=== PATIENT | female | born 1995 | race Caucasian/White ===

== ENCOUNTER 2021-08-20 18:06 | Emergency (ER) | payer MEDICAID, SELFPAY ==
[2021-08-20 18:08] VITALS: BP 114/66; PULSE 88; RESP 14; TEMP 36.6; O2SAT 99; BMI 38.0
--- NOTE | 2021-08-20 18:57 | US_ITS ---
HISTORY: cramping, bleeding, 10 weeks EXAMINATION: US OB Less Than 14 Weeks TECHNIQUE: Transabdominal pelvic ultrasound was performed. Grayscale and color flow Doppler evaluation of the adnexa. COMPARISON: None FINDINGS: Uterus measures 10.6 x 5.5 x 8.2 cm. Single intrauterine gestational sac contains a pole and yolk sac, with heart rate 155 BPM. [place]-rump length measurement of 3.61 cm yields an estimated gestational age of 10 weeks 2 days, CLAUDIO 03/16/22. Small heterogeneous hypoechoic fluid collection adjacent to gestational sac measures 1 x 0.6 x 1 cm, compatible small subchorionic hematoma. Amniotic fluid is subjectively within normal limits. Closed cervix. Trace free pelvic fluid noted. No adnexal mass or large adnexal cyst. Bilateral ovaries with normal color Doppler flow. Right ovary measures 3.2 x 1.9 x 2.5 cm and left ovary 3.1 x 1.3 x 2.2 cm. US/Init OB < 14Wks US IMPRESSION: Single live intrauterine with small subchorionic hematoma. EGA by crown rump length measurement is 10 weeks 2 days. at 2133 Reported and signed by: Monty Sanchez MD Electronically Signed: Monty Sanchez MD at 21:32 EDT Tel , Service support ,
--- NOTE | 2021-08-20 18:57 | EDS_ITS ---
HPI HPI - Female History of Present Illness Chief Complaint: Vag Bld, Preg Informant: patient Pain Pain: Positive for Pelvic Pain Onset: Days Context: Gradual Onset Timing: Intermittent Quality: Positive for Cramping Current Severity: Mild Maximum Severity: Mild Bleeding Issue: Positive for Vaginal bleeding; Negative for Passing clots and Passing tissue Onset: Yesterday Context: Gradual Onset Timing: Intermittent Current Severity: Spotting Maximum Severity: Spotting Associated Symptoms Associated Symptoms: Negative for Dysuria, Frequency, Urgency and Hematuria Test: Positive Sexually: Positive for Active Control: No control P: 0 Ab: 1 Narrative Narrative: 25-year-old female with G2, P0 Ab1 with that being a miscarriage. States that she is 10 weeks . Has had no APPRAISAL TECHNICIAN care as of yet but has an appointment to see an OB within the next week or so. States that she has had some mild cramping and spotting. Denies any dysuria. No fever or chills. She is concerned she may be having another miscarriage. She denies any recent illness. Prior similar symptoms: Yes Recent Illness/Hospitalization: No PFSH PFSH Medical History Anxiety Asthma Bipolar disorder Depression Home Medications vit-iron fum-folic ac [Prena-Tab] 1 tab PO DAILY 08/20/21 [History Last Taken Unknown] Allergy/AdvReac Type Severity Reaction Status Date / Time aripiprazole Allergy Hives Verified 04/11/17 17:46 Social History Smoking Status: Former smoker ROS ROS ED ROS Narrative Denies recent illness. Vaginal spotting and pelvic cramping. Review of Systems ROS Unobtainable: Denies due to encephalopathy Constitutional Constitutional ED: Denies fever(s) Eyes Eyes: Denies blurry vision or change in vision ENT ENT ED: Denies ear pain or sore throat Cardiovascular Cardiovascular: Denies chest pain Respiratory/Chest Respiratory/Chest: Denies cough or dyspnea Gastrointestinal Gastrointestinal: Denies abdominal pain, diarrhea, nausea or vomiting Genitourinary Genitourinary ED: Denies dysuria Musculoskeletal Musculoskeletal: Denies myalgias Integumentary Denies rash Neurologic Neurologic: Denies headache(s) Psychiatric Psychiatric: Denies depression Endocrine Endocrinology: Denies polyuria Hematologic/Lymphatic Hematologic/Lymphatic: Denies easy bruising Allergic/Immunologic Allergic/Immunologic ED: Denies urticaria EXAM Physical Exam Narrative Exam Narrative: 22-year-old female no acute distress. Vital signs stable afebrile. HEENT exam unremarkable. Lungs are clear equal symmetrical. Heart regular rate and rhythm no murmur. Abdomen soft nondistended normal bowel sounds no peritoneal signs. Very minimal suprapubic tenderness. Moving all four extremities. No edema. Neurologically awake and alert. Const Vital Signs: 08/20/21 18:08 Temperature 97.8 F Temperature Source Temporal Pulse Rate 88 Respiratory Rate 14 Blood Pressure 114/66 Blood Pressure Mean 82 Pulse Ox 99 Oxygen Delivery Method Room Air Positive well nourished and well developed; Negative for cachectic, contractures or unkempt General Appearance ED: well developed and NAD; Negative for unkempt, cachectic, contractures or pallor Nutritional Appearance: Negative for cachectic HEENT Reports moist mucous membranes Negative for trauma or tenderness Eyes Negative for PERRL or EOMs intact bilaterally Neck no lymphadenopathy, supple and no JVD Thyroid: Negative for tender Chest Wall inspection of chest normal and palpation of chest normal Resp normal respiratory effort and clear to auscultation bilaterally Cardio regular rate, regular rhythm, S1 normal heart sound, no murmurs and no JVD GI normal to inspection, nondistended, normoactive bowel sounds, soft to palpation, non-distended and no masses; Negative for non-tender Auscultation: normoactive bowel sounds Palpation: tender no CVA tenderness Extremity normal to inspection and full ROM General Extremety ED: Negative for edema or tenderness General Extremity: Negative for edema Neuro oriented x3 Sensorium / Orientation: alert, oriented to person, oriented to place and oriented to time Motor Exam: strength 5/5 throughout Psych mental status grossly normal Appearance: Negative for unkempt Skin no rashes or lesions noted and no wounds General Skin Exam: Negative for jaundice or pallor MDM MDM MDM Narrative Medical decision making narrative: Young female reportedly 10 weeks with cramping and spotting. Concern for miscarriage versus ectopic versus other. UA labs and ultrasound pending. Pelvic exam will be done. Repeat exam patient is doing well at 9:40 PM. Pelvic exam done female nurse present in the room. No vaginal bleeding at this time. No blood in the vaginal vault. Pelvic exam enlarged uterus nontender. No adnexal tenderness. She is comfortable being discharged home. Tylenol for pain. We discussed the concern for threatened miscarriage. She will follow up with her APPRAISAL TECHNICIAN this week. Lab Data Attestation: I reviewed the patient's lab results. Lab results narrative: Urinalysis showed no signs of infection. ABO Rh blood type is O+. Quantitative hCG was over 45,000. Ultrasound showed a single live IUP with a small subchorionic hematoma. Approximately 10 weeks and 2 days. Discussed all test results with patient. Labs: Laboratory Results - last 24 hr 08/20/21 08/20/21 08/20/21 19:15 19:15 20:42 HCG, Quant 26740 H Urine Color Yellow Urine Clarity Sl. Cloudy Urine pH 6.0 Ur Specific [place] 1.015 Urine Protein Negative Urine Glucose (UA) Normal Urine Ketones 50 H Urine Occult Blood Negative Urine Nitrite Negative Urine Bilirubin Negative Urine Urobilinogen Normal Ur Leukocyte Esterase 25 H Urine RBC 0 SEEN Urine WBC 0-5 SEEN Ur Squamous Epith Cells 0-5 SEEN Urine Bacteria 1+ Urine Mucus 0 SEEN Blood Type O POSITIVE Radiography Diagnostic Testing: Radiology Impression Obstetrics Ultrasound 08/20/21 18:57 IMPRESSION: Single live intrauterine with small subchorionic hematoma. EGA by crown rump length measurement is 10 weeks 2 days. at 2133 Reported and signed by: Monty Sanchez MD Electronically Signed: Monty Sanchez MD at 21:32 EDT Tel , Service support , Discharge Plan Triage Chief Complaint: Vag Bld, Preg ED Provider: Mustapha Serrato Dx/Rx/DC Orders Clinical Impression: First trimester , Threatened miscarriage Prescriptions: No Action Prena-Tab 65 mg iron- 1 mg Tablet 1 tab PO DAILY RF: 0 Primary Care Provider: Care Physician,No Primary Referrals: Thee Fishman MD [STAFF PHYSICIAN] - Keep Rodri appointment Care Physician,No Primary [Primary Care Provider] - Activity Restrictions/Additional Instructions: Plenty of fluids and rest. Tylenol for pain. Follow-up with your APPRAISAL TECHNICIAN. Return if severe pain or heavy bleeding. Disposition Disposition: Home, Self Care
[2021-08-20 21:03] LABS: Color, Urine Yellow (Yellow); Glucose, Dipstick Normal (Normal); Ketone-Dipstick 50 mg/dl (Negative); Leukocyte Esterase-Dipstick 25 /ul (Negative); Mucous, Urine 0 SEEN /hpf (<or=2+); Nitrite-Dipstick Negative (Negative); Occult Blood-Urine Negative /ul (Negative); Protein-Dipstick Negative (Negative); Red Blood Cells-Urine 0 SEEN /hpf (0-5); Specific Gravity, Urine 1.015 (1.002-1.030); Urine Bilirubin Dipstick Negative (Negative); Urine Clarity Sl. Cloudy (Clear); Urine Urobilinogen Normal (Normal)
[2021-08-20 21:18] LABS: Squamous Epithelial Cells - UA 0-5 SEEN /hpf (5-10)
[2021-08-20 21:20] LABS: Bacteria 1+ /hpf (None Seen); White Blood Cells 0-5 SEEN /hpf (0-5)
== END 2021-08-20 21:49 | disposition home or self-care (01) ==
PROVIDERS: Emergency Provider Emergency Medicine
DX: O20.0 Threatened abortion (principal); O20.8 Other hemorrhage in early pregnancy; O99.511 Diseases of the respiratory system complicating pregnancy, first trimester; J45.909 Unspecified asthma, uncomplicated; Z3A.10 10 weeks gestation of pregnancy; Z87.891 Personal history of nicotine dependence
CPT/HCPCS: 76801; 81001; 84702; 86900; 86901; 99283; A4216

== ENCOUNTER → 2021-08-23 15:17 | Outpatient (CLI) | payer MEDICAID, SELFPAY ==
[2021-08-23 16:11] LABS: Absolute Lymphocyte Count 1.93 X10^3/uL (0.83-4.51); Absolute Neutrophil Count 9.5 X10^3/uL (2.0-7.7); Basophil# 0.04 X10^3/uL; Basophil% 0.3 % (0-1); Eosinophils% 0.8 % (0-5); Hematocrit 40.4 % (37-47); Hemoglobin 14.4 g/dL (12.0-15.0); Lymphocyte # 1.93 X10^3/ul (0.83-4.51); Lymphocyte % 15.6 % (19-41); Mean Corp Hgb Conc 35.6 g/dL (32-36); Mean Corpuscular Hgb 31.5 pg (27.0-32.0); Mean Corpuscular Volume 88.4 fL (81-99); Mean Platelet Vol. 10.7 fl (6.2-12.0); Monocyte# 0.74 X10^3/uL; NRBC Flagged by Analyzer 0 % (0-5); Neutrophil # 9.52 X10^3/uL (2.7-7.7); Platelet Count 368 K/mm3 (150-450); RBC Distribution Width CV 12.7 % (11.6-14.6); RBC Distribution Width SD 41.4 fl (35.1-43.9); Red Blood Count 4.57 M/mm3 (4.2-5.4); White Blood Count 12.4 K/mm3 (4.4-11.0)
[2021-08-23 16:30] LABS: Thyroid Stim Hormone (TSH) 4.46 uIU/mL (0.358-3.74)
[2021-08-23 16:52] LABS: Glucose, Dipstick Normal (Normal); Ketone-Dipstick Negative (Negative); Leukocyte Esterase-Dipstick 25 /ul (Negative); Nitrite-Dipstick Negative (Negative); Occult Blood-Urine Negative /ul (Negative); Protein-Dipstick Negative (Negative); Specific Gravity, Urine 1.015 (1.002-1.030); Urine Bilirubin Dipstick Negative (Negative); Urine Urobilinogen Normal (Normal)
[2021-08-23 16:55] LABS: Color, Urine Yellow (Yellow); Urine Clarity Cloudy (Clear)
[2021-08-23 17:29] LABS: HIV - WCH Non-Reactive (Nonreactive); Hepatitis B Surface Antigen Non-Reactive (Nonreactive); Hepatitis C Antibody Non-Reactive (Nonreactive); Rubella IgG Reactive (Nonreactive); Syphilis Antibodies Non-reactive
[2021-08-24 10:41] LABS: Free T3 2.3 pg/mL (2.18-3.98); T4 Free Direct 0.79 ng/dL (0.76-1.46)
[2021-08-29 22:06] LABS: Chlamydia By Nucleic Acid AMP Negative (Negative)
[2021-08-30 09:31] LABS: Gonococcus By Nucleic Acid AMP Negative (Negative)
== END ==
PROVIDERS: Visit Provider Obstetrics & Gynecology
DX: O26.891 Other specified pregnancy related conditions, first trimester (principal); R94.6 Abnormal results of thyroid function studies; Z3A.00 Weeks of gestation of pregnancy not specified
CPT/HCPCS: 36415; 81002; 84439; 84443; 84481; 85025; 86703; 86762; 86780; 86803; 87086; 87088; 87340; 87491; 87591; 88175; G0145

== ENCOUNTER 2021-11-19 23:40 | Outpatient (CLI) | payer MEDICAID, SELFPAY ==
[2021-11-20] VITALS: BMI 37.5
[2021-11-20 00:04] VITALS: BP 116/55; PULSE 72; TEMP 36.6; O2SAT 97
--- NOTE | 2021-11-22 08:39 | OB.TRI.HP_ITS ---
HPI - General HPI Narrative LOW PRETTY, is a 26 F who presents to labor and delivery at 23+ weeks gestation with some vaginal bleeding and decreased movement. Patient with known marginal placenta previa. Patient described bleeding as light. PFSH PFSH Medical History Anxiety Asthma Bipolar disorder Depression Home Medications vit-iron fum-folic ac [Prena-Tab] 1 tab PO DAILY 08/20/21 [History Last Taken Unknown] lurasidone [Latuda] 20 mg PO DAILY 11/20/21 [History Last Taken Unknown] Allergy/AdvReac Type Severity Reaction Status Date / Time aripiprazole Allergy Hives Verified 11/20/21 00:04 Social History Smoking Status: Former smoker NST FHR Rate Baby A NST Reactive:: Appropriate for gestational age Uterine Activity:: Minimal activity noted on monitor. Positive heart tones noted with Doppler. Assessment & Plan (1) Marginal placenta previa: PLAN: 23+ week intrauterine with minimal vaginal bleeding and marginal placenta previa. heart tones noted with Doppler. Minimal to no contractions noted. Urine sent for culture and sensitivity. Patient to follow- up in the office next day. To call with any increased bleeding or contractions. Encouraged hydration and pelvic rest.
== END 2021-11-20 00:30 | disposition home or self-care (01) ==
LOC: WPOUT 23:58 → WP 23:59
PROVIDERS: Referring Provider Obstetrics & Gynecology; Visit Provider Obstetrics & Gynecology
DX: O44.32 Partial placenta previa with hemorrhage, second trimester (principal); Z3A.23 23 weeks gestation of pregnancy
CPT/HCPCS: 59050; 87086; 87088; 99218; G0378

== ENCOUNTER 2021-12-10 16:14 | Outpatient (CLI) | payer MEDICAID, SELFPAY ==
[2021-12-10 16:18] VITALS: BP 131/70; PULSE 97; TEMP 36.7; O2SAT 97
[2021-12-10 16:19] VITALS: BP 131/70; PULSE 97
[2021-12-10 16:25] VITALS: BMI 38.3
[2021-12-10 19:22] VITALS: BP 118/64; PULSE 88; TEMP 37
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
== END 2021-12-10 23:59 | disposition home or self-care (01) ==
LOC: WPOUT 16:15 → WP 16:16
PROVIDERS: Visit Provider Obstetrics & Gynecology
DX: Z04.1 Encounter for examination and observation following transport accident (principal); F31.9 Bipolar disorder, unspecified; F41.9 Anxiety disorder, unspecified; Z87.891 Personal history of nicotine dependence; Z79.899 Other long term (current) drug therapy
CPT/HCPCS: 59025; 59050; 99218; G0378

== ENCOUNTER 2021-12-26 13:05 | Outpatient (CLI) | payer MEDICAID, SELFPAY ==
[2021-12-26 14:04] LABS: Hematocrit 36.6 % (37-47); Hemoglobin 12.4 g/dL (12.0-15.0); Mean Corp Hgb Conc 33.9 g/dL (32-36); Mean Corpuscular Hgb 31.1 pg (27.0-32.0); Mean Corpuscular Volume 91.7 fL (81-99); Mean Platelet Vol. 10.3 fl (6.2-12.0); Platelet Count 345 K/mm3 (150-450); RBC Distribution Width CV 13.5 % (11.6-14.6); RBC Distribution Width SD 45.4 fl (35.1-43.9); Red Blood Count 3.99 M/mm3 (4.2-5.4); White Blood Count 10.9 K/mm3 (4.4-11.0)
[2021-12-26 14:20] LABS: ALB/GLOB Ratio 0.7 RATIO (0.9-2.4); AST(SGOT) 8 U/L (15-37); Alanine Aminotransfer ALT/SGPT 22 U/L (13-56); Albumin, Serum 2.9 g/dL (3.2-5.0); Alkaline Phosphatase 74 U/L (45-117); Anion Gap 5 (5-15); BUN 6 mg/dL (7-18); Calcium,Total 8.9 mg/dL (8.5-10.1); Chloride 107 mmol/L (98-107); EST Glomerular Filtration Rate 130 mL/min (>60); Est Glom Filt Rate - Afr Amer 157 mL/min (>60); Globulin 3.9 g/dL (2.2-4.2); Glucose 122 mg/dL (74-106); Glucose Challenge Gest 1H 50g 122 mg/dL (70-140); Potassium 3.3 mmol/L (3.5-5.1); Protein, Total 6.8 g/dL (6.4-8.2); Sodium Level 139 mmol/L (136-145)
== END 2021-12-26 23:59 | disposition short-term general hospital (02) ==
PROVIDERS: Visit Provider Obstetrics & Gynecology
DX: O26.613 Liver and biliary tract disorders in pregnancy, third trimester (principal); K83.1 Obstruction of bile duct; Z3A.00 Weeks of gestation of pregnancy not specified
CPT/HCPCS: 36415; 80053; 82950; 85027

== ENCOUNTER 2021-12-28 20:28 | Outpatient (CLI) | payer MEDICAID, SELFPAY ==
[2021-12-28 20:37] VITALS: BMI 39.3
[2021-12-28 20:43] VITALS: BP 130/63; PULSE 85; TEMP 36.7; O2SAT 94
[2021-12-28 21:26] LABS: ROM Internal Control Test YES-OK TO RESULT pt. (Internal QC); ROM Patient Test Negative (Negative)
--- NOTE | 2021-12-29 07:55 | OB.TRI.NOTE ---
HPI - General HPI Narrative LOW PRETTY, is a 26 F who presents leakage of fluid PFSH PFSH Medical History Anxiety Asthma Bipolar disorder Depression Home Medications vit-iron fum-folic ac [Prena-Tab] 1 tab PO DAILY 08/20/21 [History Last Taken 12/27/21] lurasidone [Latuda] 40 mg PO DAILY 11/20/21 [History Last Taken 12/27/21] Allergy/AdvReac Type Severity Reaction Status Date / Time aripiprazole Allergy Hives Verified 12/28/21 20:40 Social History Smoking Status: Former smoker NST FHR Rate Baby A Baseline: 120 Variability:: Moderate Accelerations:: 15 x 15 Decelerations:: None NST Reactive:: Yes Uterine Activity:: quiet Assessment & Plan (1) : PLAN: Patient arrived with leakage of clear fluid. ROM negative. NST reassuring. Okay to discharge home and follow-up at scheduled appointments
== END 2021-12-28 23:59 | disposition home or self-care (01) ==
LOC: WPOUT 20:32 → WP 20:32
PROVIDERS: Visit Provider Obstetrics & Gynecology
DX: O42.90 Premature rupture of membranes, unspecified as to length of time between rupture and onset of labor, unspecified weeks of gestation (principal); F31.9 Bipolar disorder, unspecified; O99.340 Other mental disorders complicating pregnancy, unspecified trimester; Z3A.00 Weeks of gestation of pregnancy not specified; F41.9 Anxiety disorder, unspecified; Z87.891 Personal history of nicotine dependence
CPT/HCPCS: 59025; 59050; 84112; 99218; G0378

== ENCOUNTER 2022-01-18 17:10 | Outpatient (CLI) | payer MEDICAID, SELFPAY ==
[2022-01-18] VITALS (11 sets, daily range): BP systolic 100–136; BP diastolic 55–73; PULSE 65–87; TEMP 36.6; O2SAT 97; BMI 38.9
[2022-01-18 17:56] LABS: Hematocrit 35.6 % (37-47); Hemoglobin 12.5 g/dL (12.0-15.0); Mean Corp Hgb Conc 35.1 g/dL (32-36); Mean Corpuscular Hgb 31.8 pg (27.0-32.0); Mean Corpuscular Volume 90.6 fL (81-99); Mean Platelet Vol. 10.2 fl (6.2-12.0); Platelet Count 311 K/mm3 (150-450); RBC Distribution Width CV 13.2 % (11.6-14.6); RBC Distribution Width SD 43.7 fl (35.1-43.9); Red Blood Count 3.93 M/mm3 (4.2-5.4)
[2022-01-18 18:06] LABS: Protein, Urine (Random) 13.2 mg/dL (<11.9); Protein:Creat Ratio 299 mg/g CRE (0-200)
[2022-01-18 18:09] LABS: AST(SGOT) 9 U/L (15-37); Alanine Aminotransfer ALT/SGPT 26 U/L (13-56); Creatinine, Serum 0.49 mg/dL (0.55-1.02); EST Glomerular Filtration Rate 165 mL/min (>60); Est Glom Filt Rate - Afr Amer 200 mL/min (>60); Estimated Creatinine Clearance 178.59 ml/min; Uric Acid 4.7 mg/dL (2.6-6.0)
[2022-01-18] MEDS: Acetaminophen 500 MG Tablet 1000 MG PO (18:45)
--- NOTE | 2022-01-18 19:55 | NURSING ---
Dr odonnell on unit prior to this RN receiving report to complete physician assessment. provider exam completed.
--- NOTE | 2022-01-19 08:10 | OB.TRI.NOTE ---
HPI - General HPI Narrative LOW PRETTY, is a 26 F who presents to labor and delivery at 32+ weeks gestation with headache, right upper quadrant pain, blurred vision, nausea. She does relate that she has had issues with migraines in the past. PFSH PFSH Medical History Anxiety Asthma Bipolar disorder Depression Home Medications vit-iron fum-folic ac [Prena-Tab] 1 tab PO DAILY 08/20/21 [History Last Taken 12/27/21] lurasidone [Latuda] 40 mg PO DAILY 11/20/21 [History Last Taken 12/27/21] Allergy/AdvReac Type Severity Reaction Status Date / Time aripiprazole Allergy Hives Verified 01/18/22 17:22 Social History Smoking Status: Former smoker Assessment & Plan (1) Headache in : PLAN: 32+ week intrauterine with nausea, right upper quadrant pain, headache, blurred vision. PIH work-up was negative. Blood pressures are normal. Physical exam unremarkable except for some mild right upper quadrant pain. Headache nearly completely resolved with Tylenol. Most symptoms resolved and patient was discharged home with routine instructions.
== END 2022-01-18 23:59 | disposition home or self-care (01) ==
LOC: WPOUT 17:17 → WP 17:18
PROVIDERS: Visit Provider Obstetrics & Gynecology
DX: O26.893 Other specified pregnancy related conditions, third trimester (principal); F31.9 Bipolar disorder, unspecified; O99.343 Other mental disorders complicating pregnancy, third trimester; H53.8 Other visual disturbances; J45.909 Unspecified asthma, uncomplicated; R51.9 Headache, unspecified; R10.11 Right upper quadrant pain; Z3A.32 32 weeks gestation of pregnancy; Z87.891 Personal history of nicotine dependence
CPT/HCPCS: 36415; 59025; 59050; 82565; 82570; 84156; 84450; 84460; 84550; 85027; 99218; G0378

== ENCOUNTER 2022-01-25 11:00 | Outpatient (CLI) | payer MEDICAID, SELFPAY ==
[2022-01-25 12:10] LABS: Hemoglobin 11.6 g/dL (12.0-15.0); Mean Corp Hgb Conc 34.1 g/dL (32-36); Mean Corpuscular Hgb 30.8 pg (27.0-32.0); Mean Corpuscular Volume 90.2 fL (81-99); Mean Platelet Vol. 10.5 fl (6.2-12.0); Platelet Count 281 K/mm3 (150-450); RBC Distribution Width CV 13.6 % (11.6-14.6); RBC Distribution Width SD 44.4 fl (35.1-43.9); Red Blood Count 3.77 M/mm3 (4.2-5.4); White Blood Count 9.7 K/mm3 (4.4-11.0)
[2022-01-25 12:19] LABS: ALB/GLOB Ratio 0.7 RATIO (0.9-2.4); AST(SGOT) 8 U/L (15-37); Alanine Aminotransfer ALT/SGPT 25 U/L (13-56); Albumin, Serum 2.7 g/dL (3.2-5.0); Alkaline Phosphatase 87 U/L (45-117); Anion Gap 6 (5-15); BUN 4 mg/dL (7-18); BUN/Creat Ratio 7.1 RATIO (10-20); Calcium,Total 8.7 mg/dL (8.5-10.1); Chloride 110 mmol/L (98-107); Creatinine, Serum 0.57 mg/dL (0.55-1.02); EST Glomerular Filtration Rate 139 mL/min (>60); Est Glom Filt Rate - Afr Amer 168 mL/min (>60); Globulin 3.7 g/dL (2.2-4.2); Glucose 101 mg/dL (74-106); LDH 150 U/L (84-246); Potassium 3.4 mmol/L (3.5-5.1); Protein, Total 6.4 g/dL (6.4-8.2); Sodium Level 139 mmol/L (136-145)
== END 2022-01-25 23:59 | disposition home or self-care (01) ==
LOC: WOBLAB 11:01
PROVIDERS: Visit Provider Obstetrics & Gynecology
DX: R51.9 Headache, unspecified (principal)
CPT/HCPCS: 36415; 80053; 83615; 85027

== ENCOUNTER 2022-02-19 10:30 | Outpatient (CLI) | payer MEDICAID, SELFPAY | END 2022-02-19 23:59 | disposition home or self-care (01) | LOC: LABSPEC 10:33 | PROVIDERS: Visit Provider Obstetrics & Gynecology | DX: Z36.85 Encounter for antenatal screening for Streptococcus B (principal) | CPT/HCPCS: 87077; 87081; 87186 ==

== ENCOUNTER 2022-02-23 12:50 | Outpatient (CLI) | payer MEDICAID, SELFPAY ==
[2022-02-23 13:15] VITALS: BP 119/56; PULSE 92; TEMP 36.6; O2SAT 100
[2022-02-23 13:17] VITALS: BP 119/56; PULSE 92
[2022-02-23 13:18] VITALS: TEMP 36.6
[2022-02-23 13:19] VITALS: PULSE 87; PULSE 88; O2SAT 83; O2SAT 99
[2022-02-23 13:35] VITALS: BMI 39.5
[2022-02-23 14:26] LABS: ROM Internal Control Test YES-OK TO RESULT pt. (Internal QC); ROM Patient Test Negative (Negative)
--- NOTE | 2022-02-26 10:52 | OB.TRI.NOTE ---
HPI - General HPI Narrative LOW PRETTY, is a 26 F who presents with some leaking of fluid. She denies any contractions. Maternal Data Information Final CLAUDIO: 03/13/22 PFSH PFSH Medical History Anxiety Asthma Bipolar disorder Depression Home Medications vit-iron fum-folic ac [Prena-Tab] 1 tab PO DAILY 08/20/21 [History Last Taken 02/22/22 22:00] lurasidone [Latuda] 40 mg PO DAILY 11/20/21 [History Last Taken 02/22/22 22:00] Allergy/AdvReac Type Severity Reaction Status Date / Time aripiprazole Allergy Hives Verified 01/18/22 17:22 Social History Smoking Status: Former smoker NST FHR Rate Baby A NST Reactive:: Yes FHR Category:: Category I Assessment & Plan (1) Amniotic fluid leaking: PLAN: 37+ week IUP with some leaking of fluid. ROM test negative. Reactive nonstress test. No contractions. Will discharge to home with routine follow-up in the office.
== END 2022-02-23 23:59 | disposition home or self-care (01) ==
LOC: WPOUT 12:58 → WP 12:58
PROVIDERS: Obstetrics & Gynecology; Visit Provider Obstetrics & Gynecology
DX: Z34.93 Encounter for supervision of normal pregnancy, unspecified, third trimester (principal); F31.9 Bipolar disorder, unspecified; O99.343 Other mental disorders complicating pregnancy, third trimester; F41.9 Anxiety disorder, unspecified; O99.513 Diseases of the respiratory system complicating pregnancy, third trimester; J45.909 Unspecified asthma, uncomplicated; Z79.899 Other long term (current) drug therapy; Z87.891 Personal history of nicotine dependence; Z3A.37 37 weeks gestation of pregnancy
CPT/HCPCS: 59025; 59050; 84112; 99218; G0378

== ENCOUNTER 2022-03-06 08:40 | Outpatient (CLI) | payer MEDICAID, SELFPAY ==
[2022-03-06 09:00] VITALS: BP 126/71; PULSE 89
[2022-03-06 09:39] LABS: ROM Internal Control Test YES-OK TO RESULT pt. (Internal QC); ROM Patient Test Negative (Negative)
[2022-03-06 10:09] VITALS: TEMP 36.9
[2022-03-06 10:10] VITALS: BMI 40.4
--- NOTE | 2022-03-06 11:00 | OB.TRI.NOTE ---
HPI - General HPI Narrative LOW PRETTY, is a 26 F at 39 wga who presents with c/o leaking of fluid. PFSH PFSH Medical History Anxiety Asthma Bipolar disorder Depression Home Medications vit-iron fum-folic ac [Prena-Tab] 1 tab PO DAILY 08/20/21 [History Last Taken 03/05/22 22:00 1 tab] lurasidone [Latuda] 40 mg PO DAILY 11/20/21 [History Last Taken 03/04/22 22:00 40 mg] Allergy/AdvReac Type Severity Reaction Status Date / Time aripiprazole Allergy Hives Verified 01/18/22 17:22 Social History Smoking Status: Former smoker NST FHR Rate Baby A Baseline: 130 Variability:: Moderate Accelerations:: 15 x 15 Decelerations:: None NST Reactive:: Yes FHR Category:: Category I Uterine Activity:: 0/10 Assessment & Plan (1) False labor: PLAN: ROM plus negative Pt with history suggesting false negative - to office for further eval. (2) : QUALIFIERS: Weeks of gestation: 39 weeks Qualified Code(s): Z3A.39 - 39 weeks gestation of PLAN: Cat I FHR
== END 2022-03-06 23:59 | disposition home or self-care (01) ==
LOC: WPOUT 08:53 → WP 08:53
PROVIDERS: Referring Provider Obstetrics & Gynecology; Visit Provider Obstetrics & Gynecology
DX: O47.1 False labor at or after 37 completed weeks of gestation (principal); F31.9 Bipolar disorder, unspecified; O99.343 Other mental disorders complicating pregnancy, third trimester; F41.9 Anxiety disorder, unspecified; O99.513 Diseases of the respiratory system complicating pregnancy, third trimester; J45.909 Unspecified asthma, uncomplicated; Z3A.39 39 weeks gestation of pregnancy; Z79.899 Other long term (current) drug therapy; Z87.891 Personal history of nicotine dependence
CPT/HCPCS: 59025; 59050; 84112; 99218; G0378

== ENCOUNTER 2022-03-12 11:10 | Inpatient (IN) | payer MEDICAID, SELFPAY ==
[2022-03-12] VITALS (41 sets, daily range): BP systolic 114–153; BP diastolic 56–78; PULSE 59–90; TEMP 36.1–36.4; O2SAT 93–100; BMI 40.2
[2022-03-12] MEDS: Lactated Ringers 1,000 ML 50 ML IV (11:45)
[2022-03-12 12:12] LABS: Absolute Lymphocyte Count 1.24 X10^3/uL (0.83-4.51); Absolute Neutrophil Count 6.5 X10^3/uL (2.0-7.7); Basophil# 0.02 X10^3/uL; Basophil% 0.2 % (0-1); Eosinophil# 0.05 X10^3/uL; Eosinophils% 0.6 % (0-5); Hematocrit 34.8 % (37-47); Hemoglobin 12.3 g/dL (12.0-15.0); Lymphocyte # 1.24 X10^3/ul (0.83-4.51); Mean Corp Hgb Conc 35.3 g/dL (32-36); Mean Corpuscular Hgb 31.2 pg (27.0-32.0); Mean Corpuscular Volume 88.3 fL (81-99); Mean Platelet Vol. 10.9 fl (6.2-12.0); Monocyte# 0.36 X10^3/uL; Monocyte% 4.4 % (0-10); NRBC Flagged by Analyzer 0 % (0-5); Neutrophil # 6.54 X10^3/uL (2.7-7.7); Neutrophil % 79.4 % (47-70); Platelet Count 270 K/mm3 (150-450); RBC Distribution Width CV 13.4 % (11.6-14.6); RBC Distribution Width SD 43.7 fl (35.1-43.9); Red Blood Count 3.94 M/mm3 (4.2-5.4); White Blood Count 8.2 K/mm3 (4.4-11.0)
--- NOTE | 2022-03-12 12:12 | PCM.HP.BLA ---
History and Physical Date of Admission: 03/12/22 Chief complaint: Induction of labor at term History present illness: 26-year-old G2, P0 at 39 weeks and 6 days with CLAUDIO 03/13/2022 by 15-week ultrasound arrives for induction of labor with decreased movement and failed testing. Denies headache, visual changes, chest pain, shortness of breath, nausea vomiting, right upper quadrant pain. Obstetric history: G1: 2017 G2: Current Past medical history: None Medications: vitamin Past surgical history: Tonsils and adenoids, wisdom teeth extraction Allergies: No known drug allergies Social history: Former smoker, no alcohol use or drug use Family history: Denies history DVT or PE Systems: Subsequent pertinent positives a full review of systems was performed and found to be negative Physical exam: Vital signs: Pulse 82 SPO2 90% on room air General: Normal-appearing no acute distress none HEENT: Normocephalic/atraumatic no cervical lymphadenopathy Cardiac/respiratory: No success muscles, normal breathing Abdomen: Soft, nontender, gravid Extremities: No peripheral edema normal peripheral pulses Psych: Normal affect and demeanor nonpressured speech Labs: Pending Assessment and plan: 26-year-old G2, P0 at 39 weeks and 6 days for induction of labor at term Admit labor and delivery CEFM GBS positive: For penicillin Routine orders
[2022-03-12] MEDS: Oxytocin 30 units/NS 500 ml 30 UNITS/500 ML IV.SOLN IV (12:24)
[2022-03-12] MEDS: Penicillin G 3,000,000 Units 50 ML 100 UNITS IV ×2 (16:48→20:10)
--- NOTE | 2022-03-12 17:11 | PCM.PN.OB ---
Subjective Subjective Patient feeling increased discomfort with contractions Objective Data Objective Data Vital Signs: Vital Signs Temp Pulse BP Pulse Ox 97.0 F L 73 139/73 H 94 03/12/22 14:00 03/12/22 16:27 03/12/22 16:27 03/12/22 16:27 Weight: 264 lb 8.875 oz Body Mass Index (BMI) 40.2 Intake & Output: Intake and Output for Last 24 Hours 03/10/22 03/11/22 03/12/22 23:59 23:59 23:59 Intake Total 117.54 / 117.54 Balance 117.54 / 117.54 Lab / Micro Data Result Diagrams: 03/12/22 11:50 Labs: Laboratory Results - last 24 hr 03/12/22 11:50: WBC 8.2, RBC 3.94 L, Hgb 12.3, Hct 34.8 L, MCV 88.3, MCH 31.2, MCHC 35.3, RDW Std Deviation 43.7, RDW Coeff of Leonor 13.4, Plt Count 270, MPV 10.9, Immature Gran % (Auto) 0.400, Neut % (Auto) 79.4 H, Lymph % (Auto) 15.0 L, [place] % (Auto) 4.4, Eos % (Auto) 0.6, Baso % (Auto) 0.2, Absolute Neuts (auto) 6.5, Absolute Lymphs (auto) 1.24, Nucleated RBC % 0 03/12/22 11:50: Blood Type O POSITIVE, Antibody Screen NEGATIVE Micro: Microbiology 03/12/22 11:50 Nasal Secretion SARS-CoV-2 Antigen (Rapid) - Final Physical Exam Const alert, oriented x3, no apparent distress, average body habitus, healthy appearing and well nourished HEENT normocephalic and moist oral mucous membranes Head and Scalp: atraumatic Face and Sinus: normal facial exam Neck full ROM Resp normal respiratory effort, no retractions and no use of accessory muscles GI GI Narrative: Soft, nontender, gravid Narrative: Cervical exam: 470/-3. AROM clear fluid. IUPC and FSE placed Extremity normal to inspection, full ROM and no clubbing, cyanosis or edema Psych mental status grossly normal, affect normal, speech normal and activity/motor behavior normal Assessment & Plan (1) : QUALIFIERS: Weeks of gestation: 39 weeks Qualified Code(s): Z3A.39 - 39 weeks gestation of PLAN: Patient seen and examined. AROM clear fluid. IUPC FSE placed. Continue current management.
[2022-03-12] MEDS: Lactated Ringers 500 ML 999 ML IV (20:56)
[2022-03-12] MEDS: fentaNYL-bupivacaine (epidural) 100 ML BAG EPIDURAL (22:06)
[2022-03-12] MEDS: Ondansetron 4 MG/2 ML Vial IV (22:49)
[2022-03-12] MEDS: LURASIDONE HCL 20 MG TABLET 40 MG PO (23:17)
[2022-03-13] VITALS (28 sets, daily range): BP systolic 94–134; BP diastolic 44–76; PULSE 65–105; RESP 14–18; TEMP 35.9–36.9; O2SAT 92–100
[2022-03-13] MEDS: Lactated Ringers 1,000 ML 200 ML IV ×2 (00:13→06:01)
[2022-03-13] MEDS: Penicillin G 3,000,000 Units 50 ML 100 UNITS IV ×3 (00:14→08:04)
[2022-03-13] MEDS: Lactated Ringers 500 ML 999 ML IV ×2 (00:42→06:14)
[2022-03-13] MEDS: Amnioinfusion- 0.9% NS 1,000 ML IV.SOLN. 1000 ML INTRA-UTER ×2 (02:18→06:15)
--- NOTE | 2022-03-13 04:59 | PN.OBGYN_ITS ---
Subjective Subjective Patient seen. Just had epidural placed. Feeling improved, more comfortable. Objective Data Objective Data Vital Signs: Vital Signs Temp Pulse BP Pulse Ox 96.6 F L 66 112/54 L 100 03/13/22 03:32 03/13/22 04:43 03/13/22 04:42 03/13/22 04:43 Weight: 120 kg Body Mass Index (BMI) 40.2 Intake & Output: Intake and Output for Last 24 Hours 03/11/22 03/12/22 03/13/22 23:59 23:59 23:59 Intake Total 1226.47 / 1226.47 1137.5 / 1137.5 Output Total 250 / 250 Balance 976.47 / 976.47 1137.5 / 1137.5 Lab / Micro Data Result Diagrams: 03/12/22 11:50 Labs: Laboratory Results - last 24 hr 03/12/22 11:50: WBC 8.2, RBC 3.94 L, Hgb 12.3, Hct 34.8 L, MCV 88.3, MCH 31.2, MCHC 35.3, RDW Std Deviation 43.7, RDW Coeff of Leonor 13.4, Plt Count 270, MPV 10.9, Immature Gran % (Auto) 0.400, Neut % (Auto) 79.4 H, Lymph % (Auto) 15.0 L, [place] % (Auto) 4.4, Eos % (Auto) 0.6, Baso % (Auto) 0.2, Absolute Neuts (auto) 6.5, Absolute Lymphs (auto) 1.24, Nucleated RBC % 0 03/12/22 11:50: Blood Type O POSITIVE, Antibody Screen NEGATIVE Micro: Microbiology 03/12/22 11:50 Nasal Secretion SARS-CoV-2 Antigen (Rapid) - Final Physical Exam Const alert, oriented x3 and no apparent distress HEENT normocephalic Head and Scalp: atraumatic Resp normal respiratory effort GI Inspection: gravid Narrative: Last cervical exam per RN 2 cm NST FHR Rate Baby A Baseline: 135 Variability:: Moderate Accelerations:: 15 x 15 Decelerations:: None FHR Category:: Category I Uterine Activity:: q1-5min Assessment & Plan (1) Elective induction of labor planned:
--- NOTE | 2022-03-13 06:14 | PN.OBGYN_ITS ---
Subjective Subjective Late entry. Patient seen and examined, comfortable with epidural. Objective Data Objective Data Vital Signs: Vital Signs Temp Pulse BP Pulse Ox 98.4 F 75 120/62 100 03/13/22 05:34 03/13/22 05:35 03/13/22 05:35 03/13/22 04:43 Weight: 120 kg Body Mass Index (BMI) 40.2 Intake & Output: Intake and Output for Last 24 Hours 03/11/22 03/12/22 03/13/22 23:59 23:59 23:59 Intake Total 1226.47 / 1226.47 2137.5 / 2137.5 Output Total 250 / 250 Balance 976.47 / 976.47 2137.5 / 2137.5 Lab / Micro Data Result Diagrams: 03/12/22 11:50 Labs: Laboratory Results - last 24 hr 03/12/22 11:50: WBC 8.2, RBC 3.94 L, Hgb 12.3, Hct 34.8 L, MCV 88.3, MCH 31.2, MCHC 35.3, RDW Std Deviation 43.7, RDW Coeff of Leonor 13.4, Plt Count 270, MPV 10.9, Immature Gran % (Auto) 0.400, Neut % (Auto) 79.4 H, Lymph % (Auto) 15.0 L, [place] % (Auto) 4.4, Eos % (Auto) 0.6, Baso % (Auto) 0.2, Absolute Neuts (auto) 6.5, Absolute Lymphs (auto) 1.24, Nucleated RBC % 0 03/12/22 11:50: Blood Type O POSITIVE, Antibody Screen NEGATIVE Micro: Microbiology 03/12/22 11:50 Nasal Secretion SARS-CoV-2 Antigen (Rapid) - Final Physical Exam Const alert and oriented x3 Resp normal respiratory effort Cardio regular rate GI Inspection: gravid Narrative: /-1 Extremity normal to inspection NST FHR Rate Baby A Baseline: 120 Variability:: Moderate Accelerations:: 15 x 15 Decelerations:: Variable (intermittent variable and late decelerations) FHR Category:: Category II Uterine Activity:: q3min Assessment & Plan (1) : QUALIFIERS: Weeks of gestation: 39 weeks Qualified Code(s): Z3A.39 - 39 weeks gestation of PLAN: 40/0w continued induction of labor. Patient was started on amnioinfusion overnight for recurrent variable decelerations. Progressed throughout labor. Patient is 9 cm dilated at this time. Intermittent late and variable decelerations. Patient continues to make cervical change and is in active labor. Category 2 tracing. Plan to recheck cervix in 30 minutes.
[2022-03-13] MEDS: fentaNYL-bupivacaine (epidural) 100 ML BAG EPIDURAL (07:24)
[2022-03-13] MEDS: Oxytocin 30 units/NS 500 ml 30 UNITS/500 ML IV.SOLN 334 UNITS IV (09:09)
[2022-03-13] MEDS: Methylergonovine 0.2 MG/ML Ampul IM (09:14)
[2022-03-13] MEDS: miSOPROStol 200 MCG Tablet 1000 MCG RC (09:20)
--- NOTE | 2022-03-13 09:30 | EX.PCM.OBRPT ---
Vaginal Delivery Findings Description of Procedure: Normal spontaneous vaginal delivery of a viable male , vertex LULY. Head and shoulders delivered with ease. Cord cut and clamped. Baby handed off to patient. Placenta delivered via cord traction and fundal massage. IV oxytocin initiated in order to facilitate uterine contractions. Second-degree midline perineal laceration noted and repaired in typical fashion. Uterine atony noted, Methergine IM and Cytotec MN given. Firm uterus noted, hemostatic. EBL 800 cc Apgars 8/9
[2022-03-13] MEDS: Ibuprofen 600 MG Tablet PO ×2 (15:50→22:49)
[2022-03-13] MEDS: LURASIDONE HCL 20 MG TABLET 40 MG PO (22:48)
[2022-03-14 04:15] VITALS: BP 98/47; PULSE 81; RESP 16; TEMP 36.3; O2SAT 96
[2022-03-14 08:25] VITALS: BP 130/51; PULSE 91; RESP 16; TEMP 36.4; O2SAT 97
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
[2022-03-14] MEDS: Ibuprofen 600 MG Tablet PO (13:24)
[2022-03-14 13:25] VITALS: BP 120/58; PULSE 87; RESP 14; TEMP 36.6; O2SAT 97
--- NOTE | 2022-03-14 15:06 | PCM.PN.OB ---
Subjective Subjective Pt without complaints. Considering going home later today if baby is able to go. Objective Data Objective Data Vital Signs: Vital Signs Temp Pulse Resp BP Pulse Ox 97.8 F 87 14 120/58 L 97 03/14/22 13:25 03/14/22 13:25 03/14/22 13:25 03/14/22 13:25 03/14/22 13:25 Oxygen Delivery Method Room Air Weight: 264 lb 8.875 oz Body Mass Index (BMI) 40.2 Intake & Output: Intake and Output for Last 24 Hours 03/12/22 03/13/22 03/14/22 23:59 23:59 23:59 Intake Total 1226.47 / 1226.47 3943.00 / 3943.00 Output Total 250 / 250 1650 / 1650 Balance 976.47 / 976.47 2293.00 / 2293.00 Lab / Micro Data Result Diagrams: 03/12/22 11:50 Micro: Microbiology 03/12/22 11:50 Nasal Secretion SARS-CoV-2 Antigen (Rapid) - Final Assessment & Plan (1) Spontaneous vaginal delivery: PLAN: Doing well PPD 1. Minimal vaginal bleeding. Wants to go home later today if baby is able to go. Homegoing instructions given.
--- NOTE | 2022-03-14 15:08 | PCM.DC ---
Discharge Instructions Diet Discharge Diet: No restrictions Activity Discharge Activity: May Drive (In 1 to 2 days if not taking narcotic pain medication), May Shower and May Take a Tub Bath May resume sexual activity in: 4-6 weeks Additional Activity Instructions:: Nothing in the vagina for 4-6 weeks. You may return to work/school in 6 weeks. Dressing / Incision Call your doctor if you observe: Fever of 101 or Higher, Inability to urinate, Inability to have a bowel movement and Using more than 1 pad per hour Follow Up Care Please Follow Up With: Pablito Corona MD When: Call [phone] to make an appointment with your doctor in 6 weeks. Test Results: Test results from this visit will be discussed in further detail at your follow-up appointment, if applicable. Discharge Plan Admission Admit Date/Time: 03/12/22 11:10 Primary Reason for Your Visit: Vaginal Delivery Attending Provider: Pablito Corona Primary Care Provider: Care Physician,No Primary Instructions Patient Instructions: After a Vaginal , Perineum Care After Childbirth Discharge Orders/Prescriptions Prescriptions: No Action Prena-Tab 65 mg iron- 1 mg Tablet 1 tab PO DAILY RF: 0 Latuda 20 mg Tablet 40 mg PO DAILY RF: 0 Referrals / Follow Up: Care Physician,No Primary [Primary Care Provider] - Disposition Disposition (needs filled in before D/C Order can be placed): Home, Self Care
== END 2022-03-14 15:15 | disposition home or self-care (01) | DRG 560 ==
PROVIDERS: Student in an Organized Health Care Education/Training Program; Admitting Provider Obstetrics & Gynecology; Visit Provider Obstetrics & Gynecology
DX: O99.824 Streptococcus B carrier state complicating childbirth (principal); Z37.0 Single live birth; O76 Abnormality in fetal heart rate and rhythm complicating labor and delivery; O62.2 Other uterine inertia; O70.1 Second degree perineal laceration during delivery; Z20.822 Contact with and (suspected) exposure to COVID-19; Z3A.39 39 weeks gestation of pregnancy; Z87.891 Personal history of nicotine dependence
CPT/HCPCS: 59025; 59050; 85025; 86850; 86900; 86901; 87426; 99218; J7030; J7120; G0378; J2405

== ENCOUNTER 2022-09-23 00:27 | Inpatient (IN) | payer MEDICAID, SELFPAY ==
[2022-09-23] VITALS (14 sets, daily range): BP systolic 113–159; BP diastolic 59–94; PULSE 69–101; RESP 10–18; TEMP 36.4–37.1; O2SAT 92–100; BMI 44.3; BMI 44.5; BMI 44.4
--- NOTE | 2022-09-23 00:45 | EKG12_ITS ---
Test Reason : CP Blood Pressure : / mmHG Vent. Rate : 080 BPM Atrial Rate : 080 BPM P-R Int : 150 ms QRS Dur : 098 ms QT Int : 384 ms P-R-T Axes : 046 075 058 degrees QTc Int : 442 ms Normal sinus rhythm Normal ECG Confirmed by LEE ENCINAS, NEL ([id number]), writer editor RAJAT WEST ([id number]) on 09/24/2022 9:48:24 AM Referred By: Antelmo Alegre Confirmed By:NEL HOWARD MD
--- NOTE | 2022-09-23 00:53 | CT_ITS ---
INDICATION: Abdominal pain, epigastric pain radiating into back. EXAMINATION: CT Abdomen And Pelvis W/ Contrast Injection TECHNIQUE: Helically acquired images were obtained of the abdomen and pelvis following IV contrast. 2-D reconstructions reviewed. A radiation dose optimization technique was used for this scan. IV Contrast dosage and agent: 100 mL Isovue-370 Oral contrast: None. COMPARISON: CT abdomen and pelvis from 07/02/2017. FINDINGS: LOWER CHEST: Small 4 mm peripheral nodule within posterior right lower lobe, present but incompletely imaged on previous exam. Heart size within normal limits. LIVER: Fatty and slightly enlarged liver. No concerning lesion. GALLBLADDER AND BILIARY TREE: Pericholecystic edema and fluid. 2 cm diameter rim calcified gallstone lodged within gallbladder neck. Tiny calcified stone within gallbladder fundus. No significant biliary ductal dilation. PANCREAS: No discrete mass or peripancreatic edema. SPLEEN: Normal size without focal cystic or solid mass. ADRENAL GLANDS: Unremarkable. KIDNEYS AND URETERS: Normal renal size and position. No hydronephrosis. No concerning lesion. PERITONEUM: Trace pericholecystic fluid. No free air. RETROPERITONEUM: No retroperitoneal mass or pathologic fluid collection. BOWEL: Normal appendix within right lower quadrant. No abnormal stomach or bowel distension. No focal inflammatory change. LYMPH NODES: No enlarged mesenteric or retroperitoneal lymph nodes. VESSELS: No acute findings. No abdominal aortic aneurysm. URINARY BLADDER: Unremarkable as visualized. REPRODUCTIVE ORGANS: No pelvic masses. ABDOMINAL WALL: No acute findings or significant hernia defect. BONES: Intact with no suspicious osseous lesion. CT/Abdomen/Pelvis W IV Cont ONLY IMPRESSION: 1. Acute cholecystitis. Recommend surgical consultation. 2. Hepatic steatosis. 3. Small 4 mm right lower lobe pulmonary nodule. Likely stable and benign postinfectious etiology. No additional follow-up recommended at this time. Electronically Signed: Monty Sanchez MD at 3:08 EDT ,
[2022-09-23] MEDS: Morphine 4 MG/ML Syringe IV (01:06)
[2022-09-23] MEDS: 0.9% Normal Saline 1,000 ML 999 ML IV (01:06)
[2022-09-23] MEDS: Ondansetron 4 MG/2 ML Vial IV (01:06)
[2022-09-23 01:23] LABS: Absolute Lymphocyte Count 2.59 X10^3/uL (0.83-4.51); Absolute Neutrophil Count 7.3 X10^3/uL (2.0-7.7); Basophil# 0.06 X10^3/uL; Basophil% 0.5 % (0-1); Eosinophil# 0.23 X10^3/uL; Eosinophils% 2.1 % (0-5); Hematocrit 40.7 % (37-47); Hemoglobin 13.3 g/dL (12.0-15.0); Lymphocyte # 2.59 X10^3/ul (0.83-4.51); Lymphocyte % 23.6 % (19-41); Mean Corp Hgb Conc 32.7 g/dL (32-36); Mean Corpuscular Hgb 28.4 pg (27.0-32.0); Mean Corpuscular Volume 86.8 fL (81-99); Monocyte# 0.77 X10^3/uL; NRBC Flagged by Analyzer 0 % (0-5); Neutrophil % 66.4 % (47-70); Platelet Count 437 K/mm3 (150-450); RBC Distribution Width CV 15.8 % (11.6-14.6); RBC Distribution Width SD 49.9 fl (35.1-43.9); Red Blood Count 4.69 M/mm3 (4.2-5.4)
[2022-09-23 01:45] LABS: AST(SGOT) 40 U/L (15-37); Alanine Aminotransfer ALT/SGPT 104 U/L (13-56); Alkaline Phosphatase 88 U/L (45-117); Anion Gap 8 (5-15); BUN 12 mg/dL (7-18); BUN/Creat Ratio 11.8 RATIO (10-20); Bilirubin, Direct 0.14 mg/dL (0.00-0.30); Calcium,Total 9.3 mg/dL (8.5-10.1); Chloride 104 mmol/L (98-107); Creatinine, Serum 1.02 mg/dL (0.55-1.02); EST Glomerular Filtration Rate 70 mL/min (>60); Est Glom Filt Rate - Afr Amer 85 mL/min (>60); Estimated Creatinine Clearance 85.79 ml/min; Globulin 3.8 g/dL (2.2-4.2); Glucose 110 mg/dL (74-106); Lipase 259 U/L (73-393); Potassium 3.8 mmol/L (3.5-5.1); Protein, Total 7.8 g/dL (6.4-8.2); Sodium Level 140 mmol/L (136-145); Troponin-I HS 4 pg/mL (3.0-54.0)
[2022-09-23 01:54] LABS: Internal QC Validated? YES +Cl - CLEAR BKGD; Pregnancy, Serum, hCG Quali. NEGATIVE Negative
[2022-09-23 01:56] LABS: Mucous, Urine 0 SEEN /hpf (<or=2+); Red Blood Cells-Urine 0 SEEN /hpf (0-5)
[2022-09-23 01:58] LABS: Color, Urine Yellow (Yellow); Glucose, Dipstick Normal (Normal); Ketone-Dipstick Negative (Negative); Leukocyte Esterase-Dipstick 25 /ul (Negative); Nitrite-Dipstick Negative (Negative); Occult Blood-Urine Negative /ul (Negative); Protein-Dipstick Negative (Negative); Specific Gravity, Urine 1.015 (1.002-1.030); Urine Bilirubin Dipstick Negative (Negative); Urine Clarity Clear (Clear); Urine Urobilinogen Normal (Normal)
[2022-09-23 01:59] LABS: Internal QC Validated? YES +Cl - CLEAR BKGD; Pregnancy, Urine Negative Negative; White Blood Cells 0-5 SEEN /hpf (0-5)
[2022-09-23 02:05] LABS: Bacteria 1+ /hpf (None Seen); Squamous Epithelial Cells - UA 0-5 SEEN /hpf (5-10)
--- NOTE | 2022-09-23 03:17 | US_ITS ---
STUDY: ABDOMINAL ULTRASOUND - RIGHT UPPER QUADRANT REASON FOR VISIT: Female, 26 years old patient with acute cholecystitis. TECHNIQUE: Ultrasound evaluation of the right upper quadrant was performed with real-time and static donaldson-scale imaging. TECHNICAL QUALITY: Adequate. COMPARISON: CT of the abdomen and pelvis dated 09/23/2022. FINDINGS: Liver: The liver measures 21.4 cm. There is increased echogenicity consistent with fatty infiltration. The bile ducts are within normal limits. There is hepatic color flow. The direction of portal flow is hepatopetal. There is no demonstrated mass lesion. Gallbladder: There is a markedly distended gallbladder. The gallbladder wall measures 3.3 mm. There is a negative sonographic Ferrer''s sign. There is no pericholecystic fluid. There is a solitary echogenic gallstone within the gallbladder. Common Bile Duct (C.B.D.): The common bile duct measures 3.1 mm. Pancreas: Normal size of the head, body and tail of the pancreas. There is increased echogenicity of the pancreas. There is no demonstrated pancreatic mass or cyst. Right Kidney: Normal size of the right kidney. The right kidney measures 10.4 x 4.5 x 5.8 cm. Normal renal cortex. There is no demonstrated renal mass or cyst. There is no right hydronephrosis. US/Gallbladder IMPRESSION: 1. Very distended gallbladder with cholelithiasis. 2. Hepatomegaly and hepatic steatosis. Electronically Signed: Vicky Corona MD at 4:57 EDT ,
[2022-09-23] MEDS: HYDROmorphone 1 MG/ML Syringe IV (03:53)
--- NOTE | 2022-09-23 06:44 | HP.PCM_ITS ---
HPI - General General Date of Admission: 09/23/22 Date of Service: 09/23/22 Chief Complaint: New onset abdominal pain HPI Narrative LOW PRETTY, is a 26 F who presents to [facility] with complaints of severe epigastric and right upper quadrant pain that started suddenly approximately 1530 yesterday. [place] and had just prior ingested a soft pretzel with cheese sauce. She states this pain was associated with nausea but no vomiting. She is also not had any fevers. She initially denies any prior episodes of this pain, but then admits over the past 2 to 3 days she has had a crampy discomfort?much more mild in intensity?in the same location. Patient's ER work-up is notable for mild elevation of AST and ALT. CBC showed white count to be within normal limits and there is no left shift. CT of the abdomen pelvis demonstrated a 2 cm calcified gallstone lodged in the neck of the gallbladder. Reflex right upper quadrant ultrasound showed the gallbladder wall thickness to be normal at 3.3 mm and there is no pericholecystic fluid. I did confirm the gallstones seen on CT. Common bile duct measured 3.1 mm in diameter. Patient is relatively healthy and only on medication for diagnosis of depression. She also notes that she is 6 months . [facility] Medical History (Updated 09/23/22 @ 06:[address] Antelmo Alegre MD) Anxiety Asthma Bipolar disorder Chest pain Depression Elective induction of labor planned Spontaneous vaginal delivery Home Medications lurasidone 20 mg tablet (Latuda) 120 mg PO QHS depression 11/20/21 [History Last Taken 03/04/22 22:00 40 mg] citalopram 20 mg tablet (Celexa) 40 mg PO QHS 09/23/22 [History Last Taken Unknown] Allergy/AdvReac Type Severity Reaction Status Date / Time aripiprazole Allergy Hives Verified 09/23/22 00:28 Surgical History (Updated 03/12/22 @ 11:47 by Silvia Barraza) History of surgery Social History Smoking Status: Former smoker ROS Constitutional Constitutional: Denies change in weight, chills or fever(s) Gastrointestinal Gastrointestinal: Reports abdominal pain and nausea; Denies diarrhea or vomiting Integumentary Integumentary: Denies lesions or rash Psychiatric Psychiatric: Reports depression Vital Signs Vital Signs Vital Signs: 09/23/22 00:28 09/23/22 00:31 09/23/22 00:33 Temperature 97.5 F L Temperature Source Temporal Pulse Rate 85 84 Respiratory Rate 16 16 Respiratory Effort Normal Non-Labored Blood Pressure 148/82 H Blood Pressure Mean 104 Pulse Ox 95 97 Oxygen Delivery Method Room Air Room Air 09/23/22 02:00 09/23/22 03:05 09/23/22 03:48 Temperature Temperature Source Pulse Rate 74 73 69 Respiratory Rate 16 15 14 Respiratory Effort Blood Pressure 113/71 113/71 Blood Pressure Mean 85 85 Pulse Ox 96 98 97 Oxygen Delivery Method Room Air Room Air Room Air 09/23/22 06:43 Temperature 97.8 F Temperature Source Oral Pulse Rate 74 Respiratory Rate 10 L Respiratory Effort Blood Pressure 120/68 Blood Pressure Mean 85 Pulse Ox 100 Oxygen Delivery Method Room Air Weight Weight: 291 lb 7.218 oz Body Mass Index (BMI) 44.3 Physical Exam Const alert and oriented x3 Constitutional Narrative: Mild distress from abdominal discomfort General Appearance: cooperative Resp normal respiratory effort GI GI Narrative: Morbidly obese, no scars. Nondistended. Soft and tender to palpation of the right upper quadrant with technically negative Ferrer sign, but patient has wincing with completion of inspiration. Palpation: tender RUQ Results Lab / Micro Data Result Diagrams: 09/23/22 01:00 09/23/22 Unknown Labs: Laboratory Results - last 24 hr 09/23/22 01:00: WBC 11.0, RBC 4.69, Hgb 13.3, Hct 40.7, MCV 86.8, MCH 28.4, MCHC 32.7, RDW Std Deviation 49.9 H, RDW Coeff of Leonor 15.8 H, Plt Count 437, MPV 11.0, Immature Gran % (Auto) 0.400, Neut % (Auto) 66.4, Lymph % (Auto) 23.6, [place] % (Auto) 7.0, Eos % (Auto) 2.1, Baso % (Auto) 0.5, Absolute Neuts (auto) 7.3, Absolute Lymphs (auto) 2.59, Nucleated RBC % 0 09/23/22 01:00: Serum , Qual NEGATIVE 09/23/22 01:45: Urine Color Yellow, Urine Clarity Clear, Urine pH 7.0, Ur Specific [place] 1.015, Urine Protein Negative, Urine Glucose (UA) Normal, Urine Ketones Negative, Urine Occult Blood Negative, Urine Nitrite Negative, Urine Bilirubin Negative, Urine Urobilinogen Normal, Ur Leukocyte Esterase 25 H, Urine RBC 0 SEEN, Urine WBC 0-5 SEEN, Ur Squamous Epith Cells 0-5 SEEN, Urine Bacteria 1+, Urine Mucus 0 SEEN, Urine Test Negative 09/23/22 : Sodium 140, Potassium 3.8, Chloride 104, Carbon Dioxide 28.0, Anion Gap 8, BUN 12, Creatinine 1.02, Estim Creat Clear Calc 85.79, Est GFR (MDRD) Af Amer 85, Est GFR (MDRD) Non-Af 70, BUN/Creatinine Ratio 11.8, Glucose 110 H, Calcium 9.3, Total Bilirubin 0.40, Direct Bilirubin 0.14, AST 40 H, ALT 104 H, Alkaline Phosphatase 88, Troponin I High Sens 4, Total Protein 7.8, Albumin 4.0, Globulin 3.8, Lipase 259 Radiology Impression Abdomen/Pelvis CT 09/23/22 00:53 IMPRESSION: 1. Acute cholecystitis. Recommend surgical consultation. 2. Hepatic steatosis. 3. Small 4 mm right lower lobe pulmonary nodule. Likely stable and benign postinfectious etiology. No additional follow-up recommended at this time. Electronically Signed: Monty Sanchez MD at 3:08 EDT , Gallbladder Ultrasound 09/23/22 03:17 IMPRESSION: 1. Very distended gallbladder with cholelithiasis. 2. Hepatomegaly and hepatic steatosis. Electronically Signed: Vicky Corona MD at 4:57 EDT , Assessment & Plan Assessment/Plan (1) Cholecystitis with cholelithiasis: PLAN: This is a 26-year-old, relatively healthy female with only diagnosis of morbid obesity, who presents with 16-hour history of acute onset right upper quadrant abdominal pain that radiates to her back and is associated with nausea. Despite pain medication in the ER she is still experiencing discomfort. Work- up to date shows a large gallstone lodged in the gallbladder neck and there is mild elevation of LFTs. The latter is suggestive of possible cholestatic process. Given patient's ongoing symptoms and persistent tenderness on exam, I have recommended we proceed to the operating room for laparoscopic cholecystectomy. The details of the procedure as well as post procedure expectations were discussed with the patient and her and they agree to proceed as described. She will also be consented for a cholangiogram to exclude a retained stone within the biliary tree. We will plan to admit to inpatient and then proceed with a procedure later today. Plan as follows: Neuro: As needed Dilaudid Pulm/CV: Incentive spirometer, no current issues FEN/GI: Trend electrolytes, maintain strict n.p.o. : No current issues Heme/ID: Will monitor CBC and empirically cover with Zosyn Endo: No current issues Proph: SCDs Dispo: Admit to inpatient Charges/Coding Visit Charges Inpatient E&M: 83246 Init Hosp L2
--- NOTE | 2022-09-23 06:46 | EDS_ITS ---
HPI History of Present Illness Chief Complaint: Chest Pain Narrative Narrative: Patient is a 26-year-old female with past medical history of asthma depression and bipolar disorder. she states she went to the [facility] today and after arriving noticed pain in her upper abdomen/lower chest. She states that she cannot associate this with eating or any type of trauma or activity. She states that despite giving the pain ample time to resolve there is no improvement and secondary to this she comes in for evaluation [facility] Medical History Anxiety Asthma Bipolar disorder Chest pain Depression Elective induction of labor planned Spontaneous vaginal delivery Home Medications lurasidone 20 mg tablet (Latuda) 120 mg PO QHS depression 11/20/21 [History Last Taken 03/04/22 22:00 40 mg] citalopram 20 mg tablet (Celexa) 40 mg PO QHS 09/23/22 [History Last Taken Unknown] Allergy/AdvReac Type Severity Reaction Status Date / Time aripiprazole Allergy Hives Verified 09/23/22 00:28 Surgical History (Updated 03/12/22 @ 11:47 by Silvia Barraza) History of surgery Social History Smoking Status: Former smoker ROS ROS ED Constitutional Constitutional ED: Denies chills or fever(s) ENT ENT ED: Denies sore throat Cardiovascular Cardiovascular: Reports chest pain Respiratory/Chest Respiratory/Chest: Denies cough or dyspnea Gastrointestinal Gastrointestinal: Reports abdominal pain and nausea; Denies diarrhea or vomiting Genitourinary Genitourinary ED: Denies dysuria Musculoskeletal Musculoskeletal: Denies back pain or myalgias Integumentary Denies rash Neurologic Neurologic: Denies headache(s) Hematologic/Lymphatic Hematologic/Lymphatic: Denies easy bleeding or easy bruising EXAM Physical Exam Const Vital Signs: 09/23/22 00:28 09/23/22 00:31 09/23/22 00:33 Temperature 97.5 F L Temperature Source Temporal Pulse Rate 85 84 Respiratory Rate 16 16 Respiratory Effort Normal Non-Labored Blood Pressure 148/82 H Blood Pressure Mean 104 Pulse Ox 95 97 Oxygen Delivery Method Room Air Room Air 09/23/22 02:00 09/23/22 03:05 09/23/22 03:48 Temperature Temperature Source Pulse Rate 74 73 69 Respiratory Rate 16 15 14 Respiratory Effort Blood Pressure 113/71 113/71 Blood Pressure Mean 85 85 Pulse Ox 96 98 97 Oxygen Delivery Method Room Air Room Air Room Air 09/23/22 06:43 Temperature 97.8 F Temperature Source Oral Pulse Rate 74 Respiratory Rate 10 L Respiratory Effort Blood Pressure 120/68 Blood Pressure Mean 85 Pulse Ox 100 Oxygen Delivery Method Room Air Positive well nourished, well developed and obese General Appearance ED: well developed Nutritional Appearance: obese HEENT Reports moist mucous membranes Eyes PERRL and EOMs intact bilaterally General Eye ED: Negative for scleral icterus Neck supple Resp normal respiratory effort and clear to auscultation bilaterally Cardio regular rate and regular rhythm Rate: other Other Details: Radial pulses are plus 2 out of 4 bilaterally are equal and symmetric GI non-distended GI Narrative: Abdomen is soft and nondistended with normoactive bowel sounds. There is pain with palpation in the right upper quadrant with voluntary guarding at the site/positive Ferrer sign. No pulsatile mass or fluid wave noted Auscultation: normoactive bowel sounds Palpation: soft Extremity normal to inspection Neuro oriented x3 and CN's II-XII intact bilaterally Sensorium / Orientation: alert Psych mental status grossly normal Skin no rashes or lesions noted General Skin Exam: Negative for jaundice MDM MDM MDM Narrative Medical decision making narrative: Patient presented to the ER afebrile but had pain with palpation in the right upper quadrant. I had concern for gallbladder dysfunction as the cause of this and therefore a basic work-up with a CT scan was ordered. Labs revealed no clinically significant findings but CT scan displayed changes consistent with acute cholecystitis. Patient was given a dose of Zosyn secondary to concern for developing infection and an ultrasound was ordered for better evaluation of the gallbladder. Ultrasound showed a distended gallbladder without signs of infection. General surgery was contacted and evaluated the patient in the ER. At this time they feel the patient should undergo surgical removal of her gallbladder and therefore will be admitted to the hospital at this time Lab Data Attestation: I reviewed the patient's lab results. Labs: Laboratory Results - last 24 hr 09/23/22 09/23/22 09/23/22 01:00 01:00 01:45 WBC 11.0 RBC 4.69 Hgb 13.3 Hct 40.7 MCV 86.8 MCH 28.4 MCHC 32.7 RDW Std Deviation 49.9 H RDW Coeff of Leonor 15.8 H Plt Count 437 MPV 11.0 Immature Gran % (Auto) 0.400 Neut % (Auto) 66.4 Lymph % (Auto) 23.6 Runnels % (Auto) 7.0 Eos % (Auto) 2.1 Baso % (Auto) 0.5 Absolute Neuts (auto) 7.3 Absolute Lymphs (auto) 2.59 Nucleated RBC % 0 Sodium Potassium Chloride Carbon Dioxide Anion Gap BUN Creatinine Estim Creat Clear Calc Est GFR (MDRD) Af Amer Est GFR (MDRD) Non-Af BUN/Creatinine Ratio Glucose Calcium Total Bilirubin Direct Bilirubin AST ALT Alkaline Phosphatase Troponin I High Sens Total Protein Albumin Globulin Lipase Serum , Qual NEGATIVE Urine Color Yellow Urine Clarity Clear Urine pH 7.0 Ur Specific [place] 1.015 Urine Protein Negative Urine Glucose (UA) Normal Urine Ketones Negative Urine Occult Blood Negative Urine Nitrite Negative Urine Bilirubin Negative Urine Urobilinogen Normal Ur Leukocyte Esterase 25 H Urine RBC 0 SEEN Urine WBC 0-5 SEEN Ur Squamous Epith Cells 0-5 SEEN Urine Bacteria 1+ Urine Mucus 0 SEEN Urine Test Negative 09/23/22 Unknown WBC RBC Hgb Hct MCV MCH MCHC RDW Std Deviation RDW Coeff of Leonor Plt Count MPV Immature Gran % (Auto) Neut % (Auto) Lymph % (Auto) Runnels % (Auto) Eos % (Auto) Baso % (Auto) Absolute Neuts (auto) Absolute Lymphs (auto) Nucleated RBC % Sodium 140 Potassium 3.8 Chloride 104 Carbon Dioxide 28.0 Anion Gap 8 BUN 12 Creatinine 1.02 Estim Creat Clear Calc 85.79 Est GFR (MDRD) Af Amer 85 Est GFR (MDRD) Non-Af 70 BUN/Creatinine Ratio 11.8 Glucose 110 H Calcium 9.3 Total Bilirubin 0.40 Direct Bilirubin 0.14 AST 40 H ALT 104 H Alkaline Phosphatase 88 Troponin I High Sens 4 Total Protein 7.8 Albumin 4.0 Globulin 3.8 Lipase 259 Serum , Qual Urine Color Urine Clarity Urine pH Ur Specific [place] Urine Protein Urine Glucose (UA) Urine Ketones Urine Occult Blood Urine Nitrite Urine Bilirubin Urine Urobilinogen Ur Leukocyte Esterase Urine RBC Urine WBC Ur Squamous Epith Cells Urine Bacteria Urine Mucus Urine Test Radiography Diagnostic Testing: Clinical Impression(s) from Imaging Studies Abdomen/Pelvis CT 09/23/22 00:53 IMPRESSION: 1. Acute cholecystitis. Recommend surgical consultation. 2. Hepatic steatosis. 3. Small 4 mm right lower lobe pulmonary nodule. Likely stable and benign postinfectious etiology. No additional follow-up recommended at this time. Electronically Signed: Monty Sanchez MD at 3:08 EDT , Gallbladder Ultrasound 09/23/22 03:17 IMPRESSION: 1. Very distended gallbladder with cholelithiasis. 2. Hepatomegaly and hepatic steatosis. Electronically Signed: Vicky Corona MD at 4:57 EDT , Discharge Plan Triage Chief Complaint: Chest Pain ED Provider: Edouard Siegel Dx/Rx/DC Orders Clinical Impression: Cholelithiasis, Biliary colic, Morbid obesity Prescriptions: No Action Latuda 20 mg Tablet 120 mg PO QHS citalopram [Celexa] 20 mg Tablet 40 mg PO QHS Primary Care Provider: Care Physician,No Primary Referrals: Care Physician,No Primary [Primary Care Provider] - Disposition Disposition: [facility]
--- NOTE | 2022-09-23 06:48 | NURSING ---
320 OBS DIONISIO CHOLELITHIASIS WITH BILIARY COLIC
[2022-09-23] MEDS: HYDROmorphone 0.5 MG/0.5 ML SYRINGE IV ×2 (06:50→15:01)
--- NOTE | 2022-09-23 11:45 | RAD_ITS ---
CLINICAL HISTORY: Female, 26 years old. Cholecystectomy PROCEDURE: CHOLANGIOGRAM - intraoperative CONSENT: Informed consent obtained SEDATION: General FLUOROSCOPY TIME (if supplied): (0:21) minutes/seconds 2 separate cine loops of 82 and 38 fluoroscopic images obtained Placement of the catheter and the procedure were performed by: Dr. Alegre Fluoroscopy was provided by Sydnee Trevino, who was present in the room time of the procedure. TECHNIQUE: (All elements of maximal sterile barrier technique followed, including US elements as applicable) After surgical removal of the gallbladder, the cystic duct remnant was cannulized and contrast injected in a retrograde manner. There is normal filling of the cystic duct, common bile duct and biliary radicals. No filling defects are noted to suspect retained stones. There is normal flow contrast into the duodenum. No extravasation of contrast outside the lumen of the biliary tree noted. RAD/Cholangiogram/ O R,Initial IMPRESSION: Normal intraoperative cholangiogram. Electronically Signed: Arthur Marx MD at 12:41 EDT ,
--- NOTE | 2022-09-23 12:05 | GALL_PTH ---
PATIENT: LOW PRETTY LOC: MS3 U#:[id number] AGE/SX: ROOM: KS320 RE09/23/[address]: Dr. Antelmo Alegre MD : 1995 BED: 1 DIS: 09/24/2022 SPEC #: [id number] RECD: 09/24/22 07:01 STATUS: ESTELA MADAILety #: [id number] KOBY: 09/23/22 12:[address]: Antelmo Alegre DEPT: SURGICAL PATHOLOGY RECD BY: Loni Rosado ENTERED: 09/24/22 09:03 SP TYPE: STEVEN LUNA DR: No Primary Care Phys Tissues: Gallbladder, NOS Procedures: Surgery Specimen Level III HEADER OPERATION: Laparoscopic cholecystectomy with IOC PRE-OP DIAGNOSIS: Acute cholecystitis, hepatic steatosis, small 4 mm right lower lobe pulmonary nodule TISSUE SUBMITTED: Gallbladder MICROSCOPIC DIAGNOSIS Gallbladder, cholecystectomy: Cholesterolosis, chronic cholecystitis and cholelithiasis. AM:ruth 09/25/2022 MICROSCOPIC DESCRIPTION Slides are reviewed. GROSS DESCRIPTION Received is one container labeled with the patient's name and designated gallbladder. The specimen consists of a gallbladder measuring 9 x 3 x 2.5 cm. The external surface is smooth and glistening. Focally, it is granular, hemorrhagic and contains cautery artifact. The lumen of the gallbladder contains yellow-green mucoid bile and multiple black to lorenzo calculi ranging in size from <0.1 to 2 cm in greatest dimension. The mucosa is bile-stained and without any mass lesions. The gallbladder wall averages 0.2 cm in thickness and is free of mass lesions. Plaque Maker sections of the gallbladder and the cystic duct at margin of resection are submitted in one cassette. / AM:ruth 09/24/2022 TC:3 CPT: 07047
[2022-09-23] MEDS: Bupivacaine 0.25% 30 ML Vial (12:40)
--- NOTE | 2022-09-23 12:46 | PCM.OPRPT ---
Problems Associated Problem List Diagnoses (1) Cholecystitis with cholelithiasis: Report of Operation Date of Procedure: 09/23/22 Pre-Operative Diagnosis: Cholecystitis with cholelithiasis and abnormal LFTs Post-Operative Diagnosis: Same Surgery/Procedure Performed:: Laparoscopic cholecystectomy with intraoperative cholangiogram Description of Surgical Findings:: ? Severely inflamed gallbladder with caking of the omentum over the gallbladder ? Diminutive cystic duct ? Cholangiogram showing normal antegrade flow through the cystic duct common bile duct and into the duodenum. Mildly dilated common hepatic duct and normal filling of the right and left hepatic ducts Surgeon: Antelmo Alegre sheet metal technician: Jil Gillespie Type of Anesthesia: General/Supplemental Anesthesiologist: Anjelica Santana Specimen's removed: Gallbladder Estimated Blood Loss (mL): 30 Description of Procedure: After proper identification in the preoperative holding area the patient was brought to the operating room where positioned supine on the operating room table. Preoperatively SCDs were placed and antibiotics were administered by anesthesia as surgical prophylaxis (an interval dose of 3g Ancef was provided given the duration from the initial administration by EM). General anesthesia was then induced. Patient's abdomen was prepped and draped in usual sterile fashion. A formal timeout was conducted to confirm both patient and the procedure. Procedure was begun with a local block and stab incision at Licona's point. A Veress needle was inserted and we performed a water drop test to confirm peritoneal location. Insufflation was begun via Veress needle and pneumoperitoneum was established to 15 mmHg, then a supraumbilical incision was made and a 5 mm trocar was attached to the laparoscope to perform an optical entry. Inspection of the left upper quadrant revealed that the needle had dipped just below the omentum and a limited local exploration of this area followed once we had inserted the remainder of our ports. For the interim, 2X 5 mm ports were placed in the right upper quadrant under laparoscopic visualization followed by a third 5 mm port in the subxiphoid position. Lastly the supraumbilical port was upsized to a 12 mm port. With local exploration of the left upper quadrant we identified the stomach, but there was no evidence of bleeding or intraperitoneal injury. Therefore attention was directed back to the liver edge where the gallbladder was entirely shrouded with adherent omentum. Not wanting to create a capsular tear in the liver, the liver was gently elevated and the adhesions were taken with selective electrocautery while providing countertraction. This lysing of adhesions permitted some excursion of the gallbladder and a cephalad direction, however there were still abundant adhesions caking onto the gallbladder along its entire course and a combination of blunt dissection and selective electrocautery was used to disrupt these as well. I also used selective electrocautery to open the peritoneum around the gallbladder so that we would gain length on our cystic duct. This was gradually dissected free of the surrounding soft tissues and the cystic artery was found positioned just atop the cystic duct. Therefore I released the peritoneal attachments laterally and this allowed it to retract medially. The cystic duct was skeletonized and it proved to be very diminutive in size. Still with patient's abnormal liver function tests preop, I wanted to perform a cholangiogram. A clip was placed distally on the cystic duct and very carefully a ductotomy was made in this small cystic duct with laparoscopic alessandro. A cholangiocatheter was fed into the proximal segment of the cystic duct and clipped into place. Under fluoroscopy a cholangiogram was then obtained showing a standard cystic duct flowing into a common bile duct with unobstructed antegrade flow of contrast into the duodenum. There was also retrograde flow through the common hepatic duct into the right and left hepatic ducts. With this result the cholangiocatheter was withdrawn and the remainder of the procedure was completed. The cystic duct was triply clipped and sharply divided. The same process was used for the cystic artery. The gallbladder was then removed from the gallbladder fossa with the use of electrocautery. At the cystic plate I encountered a secondary cystic artery that was clearly entering the gallbladder and I clipped this singly and burnt the distal end with electrocautery. Selective electrocautery was used to obtain hemostasis in the gallbladder fossa. The gallbladder was placed in an Endo Catch bag and removed from the peritoneum. Morison's pouch was irrigated and the effluent was suctioned free of the peritoneum. Hemostasis was again confirmed. I used a Kye Girard suture passer to close the 12mm supraumbilical port site under laparoscopic visualization, however, once the pneumoperitoneum was evacuated and the suture was tied, there was still a gap in the fascia so I redid the closure in an open fashion with 0 Vicryl in a figure of eight fashion producing a much more satisfactory closure. A total of 30 mL of anesthetic was injected at the port sites for postoperative pain control. The skin of each port site was then closed in subcuticular fashion using 4-0 Monocryl. Steri-Strips and bandages were applied as dressings. Patient tolerated the procedure well without any apparent complications. On emergence from their anesthetic the patient was taken to PACU for ongoing recovery. Complications None Admit VTE Documentation VTE Mechan Device Prophylaxis: SCD's Procedures Digestive 40xxx-49xxx: 50193 Laparo cholecystectomy/graph
[2022-09-23] MEDS: 0.9% Saline Lock 10 ML Syringe IV ×2 (15:02→20:22)
[2022-09-23] MEDS: 0.9% Normal Saline 1,000 ML 125 ML IV (18:12)
[2022-09-23] MEDS: Acetaminophen 500 MG Tablet PO (20:21)
[2022-09-23] MEDS: Citalopram 40 MG TABLET PO (20:22)
[2022-09-24 00:44] VITALS: BP 152/80; PULSE 88; RESP 18; TEMP 36.9; O2SAT 94
[2022-09-24] MEDS: 0.9% Normal Saline 1,000 ML 125 ML IV (00:51)
[2022-09-24] MEDS: Acetaminophen 500 MG Tablet PO ×2 (05:16→12:47)
[2022-09-24 05:17] VITALS: BP 113/76; PULSE 89; RESP 18; TEMP 36.4; O2SAT 96
[2022-09-24 05:19] VITALS: BP 113/76; PULSE 89; RESP 18; TEMP 36.4; O2SAT 96
[2022-09-24 06:56] LABS: Absolute Lymphocyte Count 0.92 X10^3/uL (0.83-4.51); Absolute Neutrophil Count 13.7 X10^3/uL (2.0-7.7); Basophil# 0.02 X10^3/uL; Basophil% 0.1 % (0-1); Hematocrit 40.1 % (37-47); Hemoglobin 13.6 g/dL (12.0-15.0); Lymphocyte # 0.92 X10^3/ul (0.83-4.51); Mean Corp Hgb Conc 33.9 g/dL (32-36); Mean Corpuscular Hgb 29.1 pg (27.0-32.0); Mean Corpuscular Volume 85.9 fL (81-99); Mean Platelet Vol. 10.4 fl (6.2-12.0); Monocyte% 4.5 % (0-10); NRBC Flagged by Analyzer 0 % (0-5); Neutrophil # 13.73 X10^3/uL (2.7-7.7); Neutrophil % 88.9 % (47-70); Platelet Count 430 K/mm3 (150-450); RBC Distribution Width CV 15.9 % (11.6-14.6); RBC Distribution Width SD 50.4 fl (35.1-43.9); Red Blood Count 4.67 M/mm3 (4.2-5.4); White Blood Count 15.4 K/mm3 (4.4-11.0)
[2022-09-24 07:07] LABS: AST(SGOT) 57 U/L (15-37); Alanine Aminotransfer ALT/SGPT 138 U/L (13-56); Albumin, Serum 3.5 g/dL (3.2-5.0); Alkaline Phosphatase 71 U/L (45-117); Anion Gap 7 (5-15); BUN 10 mg/dL (7-18); BUN/Creat Ratio 11.1 RATIO (10-20); Calcium,Total 8.3 mg/dL (8.5-10.1); Chloride 107 mmol/L (98-107); EST Glomerular Filtration Rate 81 mL/min (>60); Est Glom Filt Rate - Afr Amer 98 mL/min (>60); Estimated Creatinine Clearance 97.23 ml/min; Globulin 3.6 g/dL (2.2-4.2); Glucose 125 mg/dL (74-106); Protein, Total 7.1 g/dL (6.4-8.2); Sodium Level 138 mmol/L (136-145)
[2022-09-24] MEDS: FLU VACC QS2022-23(6MOS UP)/PF 60 MCG/0.5 ML SYRINGE IM (08:26)
--- NOTE | 2022-09-24 09:26 | DCINST_ITS ---
Discharge Instructions Diet Discharge Diet: Low fat / Low cholesterol (light diet advance as tolerated) Activity Discharge Activity: May Not Drive (3-5 days from surgery) Lifting Restrictions: No lifting greater than 15 pounds for 2 weeks Dressing / Incision Call your doctor if your incision/area has: Continuous Slow Oozing, Sudden Increased Bleeding, Increased Pain/ Swelling, Increased Redness, Foul Smelling Discharge and Swelling at the incision site Call your doctor if you observe: Fever of 101 or Higher Remove Dressing in: 2 days Cleanse incision/area with: Soap & Water Follow Up Care Please Follow Up With: Antelmo Alegre MD When: 1 week follow-up. Please call our office for a follow-up appointment. Test Results: Test results from this visit will be discussed in further detail at your follow- up appointment, if applicable. Discharge Plan Admission Admit Date/Time: 09/23/22 06:55 Primary Reason for Your Visit: Cholecystitis with cholelithiasis Attending Provider: Antelmo Alegre Primary Care Provider: Care Physician,No Primary Instructions Additional Instructions / Restrictions: Recommend establishing with a primary care provider No lifting greater than 15 pounds for 2 weeks You did have a period, following surgery, that you experienced short bursts of not breathing. We are recommending you to have a sleep study through your primary care physician once established. Recommend a low fat diet following surgery You may experience constipation post-operatively. If constipation is experienced, you may try Miralax daily as needed for constipation. Discharge Orders/Prescriptions Prescriptions: New oxycodone 5 mg Tablet 5 mg PO Q6H PRN PRN (Reason: Pain Score 6-10) 3 Days Qty: 14 0RF Continued Latuda 20 mg Tablet 120 mg PO QHS citalopram [Celexa] 20 mg Tablet 40 mg PO QHS Referrals / Follow Up: Antelmo Alegre MD [Med Staff - Active Staff] - (Follow-up 1 week post- operatively. Please call [phone] to schedule an appointment.) Care Physician,No Primary [Primary Care Provider] -
--- NOTE | 2022-09-24 09:38 | DS.PCM_ITS ---
Providers Date of Admission: 09/23/22 Primary Care Physician: No Primary Care Phys Reason For Visit: CHOLECYSTITIS WITH CHOLELITHIASIS Diagnosis Discharge Diagnosis (1) Cholecystitis with cholelithiasis: Status: Acute Code(s): K80.10 - Calculus of gallbladder with chronic cholecystitis without obstruction Medications at Discharge Home Medications lurasidone 20 mg tablet (Latuda) 120 mg PO QHS depression 11/20/21 citalopram 20 mg tablet (Celexa) 40 mg PO QHS mood 09/23/22 oxycodone 5 mg tablet 5 mg PO Q6H PRN PRN Pain Score 6-10 3 days #14 tabs 09/24/22 Hospital Course Operations cholecystecomy (Laparoscopic cholecystectomy with intraoperative cholangiogram) Summary of Care Provided Minutes Spent on Discharge: 20 Hospital Course: Patient is a 26 y/o F who presented with 1 day history of abdominal pain. CT scan of the ab/pel demonstrated acute cholecystitis. RUQ u/s demonstrated very distended gallbladder. Dr. Alegre performed a laparoscopic cholecystectomy with intraoperative cholangiogram on 09/23/22. Patient tolerated the procedure well. She had an uncomplicated hospitalization. Upon discharge, she is tolerating a regular diet. She denies nausea, vomiting, fever. She notes minimal amount of incisional discomfort. She is urinating well. Physical Exam Const General Appearance: cooperative, comfortable and well developed GI GI Narrative: Incisions c/d/i. No erythema or infection noted. Auscultation: hypoactive bowel sounds Palpation: soft and tender other (incisional, minimal) Weight / BMI Weight Weight: 292 lb 15.909 oz Body Mass Index (BMI) 44.4 ABG / Lab / Microbiology Data Result Diagrams: 09/24/22 06:17 09/24/22 06:17 Laboratory: Laboratory Results - last 24 hr 09/24/22 06:17: WBC 15.4 H, RBC 4.67, Hgb 13.6, Hct 40.1, MCV 85.9, MCH 29.1, MCHC 33.9, RDW Std Deviation 50.4 H, RDW Coeff of Leonor 15.9 H, Plt Count 430, MPV 10.4, Immature Gran % (Auto) 0.500, Neut % (Auto) 88.9 H, Lymph % (Auto) 6.0 L, Gilmer % (Auto) 4.5, Eos % (Auto) 0.0, Baso % (Auto) 0.1, Absolute Neuts (auto) 13.7 H, Absolute Lymphs (auto) 0.92, Nucleated RBC % 0 09/24/22 06:17: Sodium 138, Potassium 4.0, Chloride 107, Carbon Dioxide 24.0, Anion Gap 7, BUN 10, Creatinine 0.90, Estim Creat Clear Calc 97.23, Est GFR ( MDRD) Af Amer 98, Est GFR (MDRD) Non-Af 81, BUN/Creatinine Ratio 11.1, Glucose 125 H, Calcium 8.3 L, Total Bilirubin 0.70, AST 57 H, ALT 138 H, Alkaline Phosphatase 71, Total Protein 7.1, Albumin 3.5, Globulin 3.6, Albumin/Globulin Ratio 1.0 Radiography Diagnostic Testing: Radiology Impression Cholangiogram 09/23/22 11:45 IMPRESSION: Normal intraoperative cholangiogram. Electronically Signed: Arthur Marx MD at 12:41 EDT Reading Location ID and State: [address] [place] [address] , Service support , D/C Instructions Discharge Diet: Low fat / Low cholesterol (light diet advance as tolerated) Call your doctor if your incision/area has: Continuous Slow Oozing, Sudden Increased Bleeding, Increased Pain/ Swelling, Increased Redness, Foul Smelling Discharge and Swelling at the incision site Call your doctor if you observe: Fever of 101 or Higher Cleanse incision/area with: Soap & Water Please Follow Up With: Antelmo Alegre MD When: 1 week follow-up. Please call our office for a follow-up appointment. Meaningful Use Info Meaningful Use Diagnoses (Choose all that apply): None applicable Discharge Plan Admission Admit Date/Time: 09/23/22 06:55 Primary Reason for Your Visit: Cholecystitis with cholelithiasis Attending Provider: Antelmo Alegre Primary Care Provider: Care Physician,No Primary Instructions Additional Instructions / Restrictions: Recommend establishing with a primary care provider No lifting greater than 15 pounds for 2 weeks You did have a period, following surgery, that you experienced short bursts of not breathing. We are recommending you to have a sleep study through your primary care physician once established. Recommend a low fat diet following surgery You may experience constipation post-operatively. If constipation is experienced, you may try Miralax daily as needed for constipation. Discharge Orders/Prescriptions Prescriptions: New oxycodone 5 mg Tablet 5 mg PO Q6H PRN PRN (Reason: Pain Score 6-10) 3 Days Qty: 14 0RF Continued Latuda 20 mg Tablet 120 mg PO QHS citalopram [Celexa] 20 mg Tablet 40 mg PO QHS Referrals / Follow Up: Antelmo Alegre MD [Med Staff - Active Staff] - (Follow-up 1 week post- operatively. Please call [phone] to schedule an appointment.) Care Physician,No Primary [Primary Care Provider] - Charges/Coding Visit Charges Inpatient E&M: 74034 Disch Hosp (No charge; post-op)
[2022-09-24 10:39] VITALS: BP 136/74; PULSE 86; RESP 18; TEMP 36.4; O2SAT 97
--- NOTE | 2022-09-24 13:14 | CASEMGMT ---
STACIA MOON Assessment: Face to Face with pt for initial transition planning/care coordination assessment. STACIA MOON introduced self and role at [facility], pt voices understanding and consents to assessment. Pt is A/O x4 and answers all questions appropriately at this time. Care providers, pharmacy, and demographics verified/updated. Admitting Dx: Cholecystitis with Cholelithiasis. PCP: No PCP. Healthcare Directory pamphlet provided. Specialists: None. Preferred Pharmacy: [facility]. Insurance: [employer]. Prescription Benefit: yes. LW/HPOA: Pt denies having a LW/DPOA. LNOK: JUVE Young. Living Arrangements: Pt lives with SO, Carlos Toth and 6 month old, in a two story home with three steps going into the home. There is a railing with the three steps. Pt is I in ADLs. Transportation: Pt drives. However, her SO or family will assist with transportation upon DC. DME/HHC/SNF: Pt denied any DME, HHC, or SNF stays. Pt states no concerns with going home at time of dc. Pt states no further concerns/needs. CM to follow. Advised pt to ask CM if any further question/concerns/needs arise, voices understanding. Pt Goal: Home. Plan: Home.
== END 2022-09-24 14:17 | disposition home or self-care (01) | DRG 263 ==
LOC: ED 06:51 → MS3 07:22
PROVIDERS: Admitting Provider Surgery; Emergency Provider Emergency Medicine; Referring Provider Surgery; Visit Provider Surgery
PROC: 0FT44ZZ Resection of Gallbladder, Percutaneous Endoscopic Approach (ICD-10-PCS; CPT 47610; principal; 2022-09-23 11:45)
DX: K80.10 Calculus of gallbladder with chronic cholecystitis without obstruction (principal); E66.01 Morbid (severe) obesity due to excess calories; F31.9 Bipolar disorder, unspecified; Z68.41 Body mass index [BMI] 40.0-44.9, adult; K82.8 Other specified diseases of gallbladder; J45.909 Unspecified asthma, uncomplicated; F41.9 Anxiety disorder, unspecified; Z79.899 Other long term (current) drug therapy; Z87.891 Personal history of nicotine dependence
CPT/HCPCS: 36415; 74177; 74300; 76000; 76705; 80048; 80053; 80076; 81001; 81025; 83690; 84484; 84703; 85025; 88304; 93005; 99285; J7030; J7050; Q9967; 90686; A4216; J2405

== ENCOUNTER → 2022-10-04 | Outpatient (CLI) | payer MEDICAID, SELFPAY ==
[2022-10-04 12:24] LABS: Absolute Lymphocyte Count 1.96 X10^3/uL (0.83-4.51); Absolute Neutrophil Count 5.4 X10^3/uL (2.0-7.7); Basophil# 0.06 X10^3/uL; Basophil% 0.7 % (0-1); Eosinophils% 1.2 % (0-5); Hematocrit 41.3 % (37-47); Hemoglobin 14.2 g/dL (12.0-15.0); Lymphocyte # 1.96 X10^3/ul (0.83-4.51); Lymphocyte % 24.3 % (19-41); Mean Corp Hgb Conc 34.4 g/dL (32-36); Mean Corpuscular Hgb 29.6 pg (27.0-32.0); Mean Corpuscular Volume 86.2 fL (81-99); Monocyte% 6.2 % (0-10); NRBC Flagged by Analyzer 0 % (0-5); Neutrophil # 5.42 X10^3/uL (2.7-7.7); Neutrophil % 67.4 % (47-70); Platelet Count 405 K/mm3 (150-450); RBC Distribution Width CV 15.1 % (11.6-14.6); RBC Distribution Width SD 47.8 fl (35.1-43.9); Red Blood Count 4.79 M/mm3 (4.2-5.4); White Blood Count 8.1 K/mm3 (4.4-11.0)
[2022-10-04 13:20] LABS: AST(SGOT) 29 U/L (15-37); Alanine Aminotransfer ALT/SGPT 106 U/L (13-56); Albumin, Serum 3.9 g/dL (3.2-5.0); Alkaline Phosphatase 84 U/L (45-117); Anion Gap 6 (5-15); BUN 11 mg/dL (7-18); BUN/Creat Ratio 10.7 RATIO (10-20); Calcium,Total 9.2 mg/dL (8.5-10.1); Chloride 108 mmol/L (98-107); Creatinine, Serum 1.03 mg/dL (0.55-1.02); EST Glomerular Filtration Rate 69 mL/min (>60); Est Glom Filt Rate - Afr Amer 84 mL/min (>60); Globulin 3.8 g/dL (2.2-4.2); Glucose 93 mg/dL (74-106); Potassium 4.2 mmol/L (3.5-5.1); Protein, Total 7.7 g/dL (6.4-8.2); Sodium Level 138 mmol/L (136-145)
== END | disposition home or self-care (01) ==
LOC: LAB 12:02
PROVIDERS: Visit Provider Physician Assistant
DX: R10.9 Unspecified abdominal pain (principal)
CPT/HCPCS: 36415; 80053; 85025

== ENCOUNTER → 2022-10-05 | Outpatient (CLI) | payer MEDICAID, SELFPAY ==
--- NOTE | 2022-10-05 13:18 | CT_ITS ---
STUDY: CT ABDOMEN AND PELVIS WITH CONTRAST REASON FOR EXAM: Female, 26 years old. Abdominal pain, post cholecystectomy -- IV contrast only RADIATION DOSAGE (If Supplied By Facility): CTDIvol = ( 18.74 ) mGy, DLP = ( 1343.17 ) mGycm TECHNIQUE: Transaxial images were obtained from the dome of the diaphragm to the symphysis pubis without oral contrast. IV 100mL Isovue-300 was administered. Sagittal and coronal images were reconstructed. Individualized dose optimization techniques were used for this CT. COMPARISON: Comparison is made with prior study done 09/23/2022. FINDINGS: The visualized lung bases are unremarkable. The visualized portions of the heart are within normal limits. There is decreased attenuation of the liver consistent with steatosis. Hepatomegaly. There are surgical clips in the gallbladder fossa consistent with a prior cholecystectomy. Normal spleen. Normal pancreas. Normal bilateral adrenal glands. Normal right kidney. Normal left kidney. Normal visualized stomach. Normal small intestine. Moderate amount of fecal material is seen in the colon. The appendix is visualized and appears normal. Normal abdominal aorta. Normal inferior vena cava. Normal retroperitoneum. I suspect a 2 mm calculus at the base of the bladder on the right side. Normal abdominal wall. Normal osseous structures. CT/Abdomen/Pelvis WITH Contrast IMPRESSION: Status post cholecystectomy. Fatty infiltration of the liver. Hepatomegaly. I suspect a 2 mm calculus at the base of the bladder on the right side. Electronically Signed: Enrique Gutierrez MD at 14:48 EDT ,
== END | disposition home or self-care (01) ==
LOC: CT 13:15
PROVIDERS: Referring Provider Surgery; Visit Provider Surgery
DX: R10.9 Unspecified abdominal pain (principal); Z90.49 Acquired absence of other specified parts of digestive tract
CPT/HCPCS: 74177; Q9967

== ENCOUNTER → 2022-10-16 | Outpatient (CLI) | payer MEDICAID, SELFPAY ==
[2022-10-16 10:56] LABS: Bacteria 0 SEEN /hpf (None Seen); Mucous, Urine 0 SEEN /hpf (<or=2+); Red Blood Cells-Urine 0 SEEN /hpf (0-5)
[2022-10-16 11:55] LABS: Color, Urine Yellow (Yellow); Glucose, Dipstick Normal (Normal); Ketone-Dipstick 5 mg/dl (Negative); Leukocyte Esterase-Dipstick 500 /ul (Negative); Nitrite-Dipstick Negative (Negative); Occult Blood-Urine Negative /ul (Negative); Protein-Dipstick Negative (Negative); Specific Gravity, Urine 1.015 (1.002-1.030); Urine Bilirubin Dipstick Negative (Negative); Urine Clarity Sl. Cloudy (Clear); Urine Urobilinogen Normal (Normal); Urine pH 6.5 (5.0 - 8.0)
[2022-10-16 12:02] LABS: Squamous Epithelial Cells - UA 0-5 SEEN /hpf (5-10); White Blood Cells 0-5 SEEN /hpf (0-5)
== END | disposition home or self-care (01) ==
LOC: BIMLAB 10:52
PROVIDERS: PCP Internal Medicine; Referring Provider Internal Medicine; Visit Provider Internal Medicine
DX: R30.0 Dysuria (principal)
CPT/HCPCS: 81001

== ENCOUNTER 2022-10-21 19:56 | Emergency (ER) | payer MEDICAID, SELFPAY ==
[2022-10-21 19:56] VITALS: BP 146/88; PULSE 78; RESP 16; TEMP 36.4; O2SAT 98; BMI 42.5
--- NOTE | 2022-10-21 20:15 | ED.VIS.GI ---
HPI HPI - GI History of Present Illness Chief Complaint: Abd Pain Narrative Narrative: 27-year-old female status postcholecystectomy approximately [address] Alegre is having continued right upper quadrant abdominal pain. She states that while she had the right upper quadrant pain, it was not relieved after cholecystectomy. It is worse after she eats. She states that she went and saw her surgeon approximately a week or so after her surgery and he performed another CT scan which showed she had kidney stones, but no evidence of a retained gallstone. She presents because over the last 24 hours she has vomited 3 times without any blood in her emesis and she continues to have right upper quadrant abdominal pain with it radiating into her right shoulder. She denies any fevers or chills. It was worse after she ate. No other exacerbating or alleviating factors. [facility] Medical History (Updated 10/21/22 @ 21:22 by Colin Lieberman MD) Anxiety Asthma Bipolar disorder Chest pain Cholecystitis with cholelithiasis Depression Elective induction of labor planned Injury of head and neck Marginal placenta previa Migraines PCOS (polycystic ovarian syndrome) Spontaneous vaginal delivery Home Medications lurasidone 20 mg tablet (Latuda) 120 mg PO QHS depression 11/20/21 [History Last Taken 03/04/22 22:00 40 mg] citalopram 20 mg tablet (Celexa) 40 mg PO QHS mood 09/23/22 [History Last Taken Unknown] ondansetron 4 mg disintegrating tablet 4 mg PO Q6H PRN nausea and vomiting #10 tabs 10/05/22 [Rx Last Taken Unknown] multivitamin 1 tab PO DAILY 10/16/22 [History Last Taken Unknown] dicyclomine 20 mg tablet 20 mg PO TID PRN abdominal pain #14 tabs 10/21/22 [Rx Last Taken Unknown] ondansetron 4 mg disintegrating tablet 4 mg PO Q6H PRN nausea and vomiting #12 tabs 10/21/22 [Rx Last Taken Unknown] Allergy/AdvReac Type Severity Reaction Status Date / Time aripiprazole Allergy Hives Verified 10/21/22 19:58 Family History (Updated 10/16/22 @ 10:[address] Magnolia Chen MD) Father Anxiety Depression Mental disorder Suicide attempt Grandfather Cancer lung Grandmother Myocardial infarction CVA (cerebral vascular accident) Surgical History History of cholecystectomy History of surgery Hx of tonsillectomy Social History (Updated 10/16/22 @ 10:[address] Magnolia Chen MD) household members: family housing: house current occupational status: employed current occupation: [employer] sexually active: Yes Smoking Status: Former smoker quit date: 12/02/19 pack-years: 4 Electronic Cigarette Use: not used alcohol intake: current alcohol intake frequency: holidays/special occasions only substance use type: does not use what type of physical activity do you participate in: walking frequency: 5-6 times per week seatbelt use: always do you feel safe at home: Yes ROS ROS ED ROS Narrative Constitutional: No fever, no chills. HEENT: No sore throat. No neck pain. No loss of vision. No rhinorrhea. Cardiovascular: No chest pain. No palpitations. No pedal edema. Respiratory: No cough, no shortness of breath. Abdominal: Right upper quadrant abdominal pain. Positive nausea. 3 episodes of nonbloody vomiting. Genitourinary: No dysuria. No hematuria. Musculoskeletal: No myalgias. No arthralgias. Neurologic: No headaches. No dizziness. No lightheadedness. Skin: No rash. No change in color. Psychiatric: No depression. No anxiety. EXAM Physical Exam Narrative Exam Narrative: Afebrile. Vital signs noted. HEENT: Normocephalic. Atraumatic. PERRL, EOMI. Neck soft and supple. No point tenderness or step off. Cardiovascular: Regular rate and rhythm. No murmurs, rubs, or gallops appreciated. Respiratory: No tachypnea. Lungs clear to auscultation bilaterally. Gastrointestinal: Abdomen soft, minimal tenderness right upper quadrant, with normoactive bowel sounds. No rebound or guarding. Neurological: Awake. Alert. Nonfocal, nonlateralizing. Skin: No rash. Normal color. No pallor. Musculoskeletal: No pedal edema. Full range of motion extremities. Const Vital Signs: 10/21/22 19:56 Temperature 97.6 F L Temperature Source Temporal Pulse Rate 78 Respiratory Rate 16 Blood Pressure 146/88 H Blood Pressure Mean 107 Pulse Ox 98 Oxygen Delivery Method Room Air MDM MDM MDM Narrative Medical decision making narrative: Patient was administered Zofran. I do not feel that repeat CT is indicated. I reviewed her scan from 10/05/2022, approximately 16 days ago, and there was no evidence of retained stone. She already had this scan status post her surgery. I will check her CBC, CMP, and lipase to look for pancreatic inflammation. CBC is normal at 8.2 white count, hemoglobin normal 12.7, platelet count normal at 360. CMP shows chloride elevated at 109 with slightly elevated creatinine of 1.09, normal BUN of 12. Glucose appropriately elevated at 95 with an anion gap of 6. ALT is slightly elevated at 104 but it has been in the past. She has normal alk phos and lipase is also normal at 232. At this point in time, after Zofran she states her nausea has improved but she still has pain in the right upper quadrant. She was given a Bentyl tablet here in the emergency department. I do feel that this is more of a chronic pain for her as she has had it even after her surgery. I feel she can be discharged safely home with follow-up to her surgeon, Dr. Alegre. She was written prescriptions for Zofran for continued nausea and for Bentyl for her right upper quadrant abdominal pain. Disposition is discharged home in stable condition. Lab Data Attestation: I reviewed the patient's lab results. Labs: Laboratory Results - last 24 hr 10/21/22 10/21/22 20:22 20:22 WBC 8.2 RBC 4.38 Hgb 12.7 Hct 37.7 MCV 86.1 MCH 29.0 MCHC 33.7 RDW Std Deviation 47.4 H RDW Coeff of Leonor 14.8 H Plt Count 360 MPV 10.7 Immature Gran % (Auto) 0.100 Neut % (Auto) 56.6 Lymph % (Auto) 29.6 [place] % (Auto) 10.0 Eos % (Auto) 3.1 Baso % (Auto) 0.6 Absolute Neuts (auto) 4.6 Absolute Lymphs (auto) 2.42 Nucleated RBC % 0 Sodium 140 Potassium 3.9 Chloride 109 H Carbon Dioxide 25.0 Anion Gap 6 BUN 12 Creatinine 1.09 H Estim Creat Clear Calc 79.59 Est GFR (MDRD) Af Amer 79 Est GFR (MDRD) Non-Af 65 BUN/Creatinine Ratio 11.0 Glucose 95 Calcium 9.4 Total Bilirubin 0.50 AST 35 ALT 104 H Alkaline Phosphatase 83 Total Protein 7.5 Albumin 3.9 Globulin 3.6 Albumin/Globulin Ratio 1.1 Lipase 232 Discharge Plan Triage Chief Complaint: Abd Pain ED Provider: Colin Lieberman Dx/Rx/DC Orders Clinical Impression: Abdominal pain, right upper quadrant, Nausea and vomiting Instructions: ED Abdominal Pain Unkn Cause Fem, ED Pain, Acute, Uncertain Cause, ED Vomiting (Adult) Prescriptions: New dicyclomine 20 mg tablet 20 mg PO TID PRN (Reason: abdominal pain) Qty: 14 0RF ondansetron 4 mg tablet,disintegrating 4 mg PO Q6H PRN (Reason: nausea and vomiting) Qty: 12 0RF No Action multivitamin Tablet 1 tab PO DAILY Latuda 20 mg Tablet 120 mg PO QHS citalopram [Celexa] 20 mg Tablet 40 mg PO QHS ondansetron 4 mg tablet,disintegrating 4 mg PO Q6H PRN (Reason: nausea and vomiting) Qty: 10 0RF Primary Care Provider: Magnolia Chen Referrals: Magnolia Chen MD [Primary Care Provider] - Antelmo Alegre MD [Med Staff - Active Staff] - 3-5 Days if not improving Disposition Disposition: Home, Self Care
[2022-10-21] MEDS: Ondansetron 4 MG/2 ML Vial IV (20:25)
[2022-10-21 20:44] LABS: ALB/GLOB Ratio 1.1 RATIO (0.9-2.4); AST(SGOT) 35 U/L (15-37); Alanine Aminotransfer ALT/SGPT 104 U/L (13-56); Albumin, Serum 3.9 g/dL (3.2-5.0); Alkaline Phosphatase 83 U/L (45-117); Anion Gap 6 (5-15); BUN 12 mg/dL (7-18); Calcium,Total 9.4 mg/dL (8.5-10.1); Chloride 109 mmol/L (98-107); Creatinine, Serum 1.09 mg/dL (0.55-1.02); EST Glomerular Filtration Rate 65 mL/min (>60); Est Glom Filt Rate - Afr Amer 79 mL/min (>60); Estimated Creatinine Clearance 79.59 ml/min; Globulin 3.6 g/dL (2.2-4.2); Glucose 95 mg/dL (74-106); Lipase 232 U/L (73-393); Potassium 3.9 mmol/L (3.5-5.1); Protein, Total 7.5 g/dL (6.4-8.2); Sodium Level 140 mmol/L (136-145)
[2022-10-21 20:46] LABS: Absolute Lymphocyte Count 2.42 X10^3/uL (0.83-4.51); Absolute Neutrophil Count 4.6 X10^3/uL (2.0-7.7); Basophil# 0.05 X10^3/uL; Basophil% 0.6 % (0-1); Eosinophil# 0.25 X10^3/uL; Eosinophils% 3.1 % (0-5); Hematocrit 37.7 % (37-47); Hemoglobin 12.7 g/dL (12.0-15.0); Lymphocyte # 2.42 X10^3/ul (0.83-4.51); Lymphocyte % 29.6 % (19-41); Mean Corp Hgb Conc 33.7 g/dL (32-36); Mean Corpuscular Volume 86.1 fL (81-99); Mean Platelet Vol. 10.7 fl (6.2-12.0); Monocyte# 0.82 X10^3/uL; NRBC Flagged by Analyzer 0 % (0-5); Neutrophil # 4.62 X10^3/uL (2.7-7.7); Neutrophil % 56.6 % (47-70); Platelet Count 360 K/mm3 (150-450); RBC Distribution Width CV 14.8 % (11.6-14.6); RBC Distribution Width SD 47.4 fl (35.1-43.9); Red Blood Count 4.38 M/mm3 (4.2-5.4); White Blood Count 8.2 K/mm3 (4.4-11.0)
[2022-10-21] MEDS: Dicyclomine 10 MG Capsule 20 MG PO (21:35)
== END 2022-10-21 21:50 | disposition home or self-care (01) ==
PROVIDERS: Emergency Provider Emergency Medicine; PCP Internal Medicine; Visit Provider Emergency Medicine
DX: R10.11 Right upper quadrant pain (principal); R11.2 Nausea with vomiting, unspecified; G89.29 Other chronic pain; Z87.891 Personal history of nicotine dependence; Z90.49 Acquired absence of other specified parts of digestive tract
CPT/HCPCS: 80053; 83690; 85025; 96374; 99283; A4216; J2405

== ENCOUNTER → 2022-10-29 | Outpatient (CLI) | payer MEDICAID, SELFPAY | END | disposition home or self-care (01) | LOC: SL 22:08 | PROVIDERS: PCP Internal Medicine; Visit Provider Internal Medicine | DX: R29.818 Other symptoms and signs involving the nervous system (principal); G47.10 Hypersomnia, unspecified | CPT/HCPCS: 95810 ==

== ENCOUNTER 2022-11-07 21:10 | Emergency (ER) | payer MEDICAID, SELFPAY ==
[2022-11-07 21:12] VITALS: BP 134/66; PULSE 76; RESP 18; TEMP 36.6; O2SAT 98; BMI 42.5
[2022-11-07 21:29] LABS: Mucous, Urine 0 SEEN /hpf (<or=2+)
[2022-11-07 21:44] LABS: Color, Urine Yellow (Yellow); Glucose, Dipstick Normal (Normal); Ketone-Dipstick Negative (Negative); Leukocyte Esterase-Dipstick 500 /ul (Negative); Nitrite-Dipstick Negative (Negative); Occult Blood-Urine 10 /ul (Negative); Protein-Dipstick Negative (Negative); Urine Bilirubin Dipstick Negative (Negative); Urine Clarity Cloudy (Clear); Urine Urobilinogen Normal (Normal)
[2022-11-07 21:46] LABS: Absolute Lymphocyte Count 2.61 X10^3/uL (0.83-4.51); Absolute Neutrophil Count 4.9 X10^3/uL (2.0-7.7); Basophil# 0.04 X10^3/uL; Basophil% 0.5 % (0-1); Eosinophils% 2.4 % (0-5); Hematocrit 41.1 % (37-47); Lymphocyte # 2.61 X10^3/ul (0.83-4.51); Lymphocyte % 31.1 % (19-41); Mean Corp Hgb Conc 34.1 g/dL (32-36); Mean Corpuscular Hgb 29.6 pg (27.0-32.0); Mean Corpuscular Volume 86.9 fL (81-99); Mean Platelet Vol. 10.8 fl (6.2-12.0); Monocyte# 0.61 X10^3/uL; Monocyte% 7.3 % (0-10); NRBC Flagged by Analyzer 0 % (0-5); Neutrophil % 58.3 % (47-70); Platelet Count 425 K/mm3 (150-450); RBC Distribution Width CV 14.1 % (11.6-14.6); RBC Distribution Width SD 45.5 fl (35.1-43.9); Red Blood Count 4.73 M/mm3 (4.2-5.4); White Blood Count 8.4 K/mm3 (4.4-11.0)
[2022-11-07 21:57] LABS: Anion Gap 4 (5-15); BUN 10 mg/dL (7-18); BUN/Creat Ratio 10.6 RATIO (10-20); Calcium,Total 9.2 mg/dL (8.5-10.1); Chloride 112 mmol/L (98-107); Creatinine, Serum 0.95 mg/dL (0.55-1.02); EST Glomerular Filtration Rate 77 mL/min (>60); Est Glom Filt Rate - Afr Amer 93 mL/min (>60); Estimated Creatinine Clearance 91.32 ml/min; Glucose 114 mg/dL (74-106); Potassium 3.8 mmol/L (3.5-5.1); Sodium Level 141 mmol/L (136-145)
[2022-11-07 22:03] LABS: Bacteria 1+ /hpf (None Seen); Red Blood Cells-Urine 0-5 SEEN /hpf (0-5); Squamous Epithelial Cells - UA 5-10 SEEN /hpf (5-10); White Blood Cells 25-50 SEEN /hpf (0-5)
[2022-11-07 22:10] LABS: Internal QC Validated? YES +Cl - CLEAR BKGD; Pregnancy, Serum, hCG Quali. NEGATIVE Negative
--- NOTE | 2022-11-07 23:10 | CT_ITS ---
EXAM: CT ABDOMEN AND PELVIS WITHOUT INTRAVENOUS CONTRAST CLINICAL INDICATION: abdominal pain TECHNIQUE: Helically acquired images were obtained of the abdomen and pelvis without intravenous contrast. This CT exam was performed using one or more of the following dose reduction techniques: automated exposure control, adjustment of the mA and/or kV according to patient size, and/or use of iterative reconstruction technique. This report was created using [employer] report generation technology. RADIATION DOSE: CTDIvol = 23.67 mGy, DLP = 1348.17 mGy-cm. COMPARISON: 07/02/2017. FINDINGS: LOWER THORAX: Unremarkable. Lung bases are clear. No cardiomegaly. No significant pericardial effusion. ABDOMEN: LIVER: There is diffuse low-attenuation of the liver. GALLBLADDER AND BILE DUCTS: Cholecystectomy. No intra- or extrahepatic biliary ductal dilation. PANCREAS: Unremarkable. No focal cystic mass. SPLEEN: Unremarkable. Normal size without focal cystic or solid mass. ADRENALS: Unremarkable. No nodules. KIDNEYS AND URETERS: Unremarkable. Normal renal size and position. No hydronephrosis. STOMACH AND BOWEL: Unremarkable. No stomach or bowel distention. No focal inflammatory change. PELVIS: APPENDIX: Normal appendix. BLADDER: Unremarkable. REPRODUCTIVE: Unremarkable as visualized. No mass. ABDOMEN and PELVIS: INTRAPERITONEAL SPACE: Unremarkable. No ascites or other fluid collection. No free air. BONES/JOINTS: Unremarkable. No suspicious lytic or blastic abnormality. SOFT TISSUES: Unremarkable. No discrete abdominal or pelvic wall hernia. VASCULATURE: Unremarkable. Abdominal aorta is non-dilated. LYMPH NODES: Unremarkable. No enlarged lymph nodes. CT/Abdomen/Pelvis without Cont IMPRESSION: 1. Fatty liver. 2. Cholecystectomy. 3. Normal appendix. 4. No acute abdominal pelvic abnormality. Electronically Signed: Antelmo Diaz MD at 0:27 EST ,
--- NOTE | 2022-11-07 23:10 | ED.VIS.GI ---
HPI HPI - GI History of Present Illness Chief Complaint: Abd Pain Detail of Chief Complaint: Abdominal pain since September Informant: patient Narrative Narrative: Patient presents with abdominal pain that she has had since September since having her gallbladder removed. Patient is scheduled to have an upper scope by Dr. Alegre to be done in about 5 days. Patient states that she has pain every day. She had nausea. Today she started vomiting and is thrown up about 5 times and has had blood in her vomit. Patient also complains of black stool today. Patient states the pain is in the upper abdomen. Patient rates her pain an 8 out of 10. He has had no fevers. PFSH PFS Medical History Anxiety Asthma Bipolar disorder Chest pain Cholecystitis with cholelithiasis Depression Elective induction of labor planned Injury of head and neck Marginal placenta previa Migraines PCOS (polycystic ovarian syndrome) Spontaneous vaginal delivery Home Medications lurasidone 20 mg tablet (Latuda) 120 mg PO QHS depression 11/20/21 [History Last Taken 03/04/22 22:00 40 mg] citalopram 20 mg tablet (Celexa) 40 mg PO QHS mood 09/23/22 [History Last Taken Unknown] multivitamin 1 tab PO DAILY 10/16/22 [History Last Taken Unknown] dicyclomine 20 mg tablet 20 mg PO TID PRN abdominal pain #14 tabs 10/21/22 [Rx Last Taken Unknown] ondansetron 4 mg disintegrating tablet 4 mg PO Q6H PRN nausea and vomiting #12 tabs 10/21/22 [Rx Last Taken Unknown] lansoprazole 30 mg capsule,delayed release (Prevacid) 30 mg PO DAILY #14 caps 11/08/22 [Rx Last Taken Unknown] ondansetron 4 mg disintegrating tablet 4 mg PO Q8H PRN PRN Nausea #10 tabs 11/08/22 [Rx Last Taken Unknown] sulfamethoxazole 800 mg-trimethoprim 160 mg tablet 1 tab PO BID #6 TABLETS 11/08/22 [Rx Last Taken Unknown] Allergy/AdvReac Type Severity Reaction Status Date / Time aripiprazole Allergy Hives Verified 11/07/22 22:59 Family History Father Anxiety Depression Mental disorder Suicide attempt Grandfather Cancer lung Grandmother Myocardial infarction CVA (cerebral vascular accident) Surgical History History of cholecystectomy History of surgery Hx of tonsillectomy Social History household members: family housing: house current occupational status: employed current occupation: [employer] sexually active: Yes Smoking Status: Former smoker quit date: 12/02/19 pack-years: 4 Electronic Cigarette Use: not used alcohol intake: current alcohol intake frequency: holidays/special occasions only substance use type: does not use what type of physical activity do you participate in: walking frequency: 5-6 times per week seatbelt use: always do you feel safe at home: Yes ROS ROS ED Review of Systems ROS Unobtainable: other Constitutional Constitutional ED: Reports lethargy; Denies chills, fever(s), sweats or weight loss Eyes Eyes: Denies blurry vision, change in vision or diplopia ENT ENT ED: Denies rhinorrhea or sore throat Cardiovascular Cardiovascular: Denies chest pain, orthopnea or racing heartbeat Respiratory/Chest Respiratory/Chest: Denies cough, dyspnea, dyspnea on exertion, orthopnea or sputum Gastrointestinal Gastrointestinal: Reports abdominal pain, melena, nausea and vomiting; Denies diarrhea Genitourinary Genitourinary ED: Denies dysuria, hematuria or urinary frequency Musculoskeletal Musculoskeletal: Denies arthralgias, back pain, myalgias or neck pain Integumentary Denies abscess, Abrasions or rash Neurologic Neurologic: Denies headache(s) or weakness Psychiatric Psychiatric: Denies anxiety, depression or suicidal thoughts Endocrine Endocrinology: Denies polydipsia, polyphagia or polyuria Hematologic/Lymphatic Hematologic/Lymphatic: Denies easy bleeding, easy bruising or lymphadenopathy Allergic/Immunologic Allergic/Immunologic ED: Denies mouth swelling, tongue swelling or urticaria EXAM Physical Exam Const Vital Signs: 11/07/22 21:12 11/07/22 23:44 11/08/22 00:33 Temperature 97.9 F Temperature Source Temporal Pulse Rate 76 74 78 Respiratory Rate 18 18 18 Blood Pressure 134/66 H 130/84 H 110/64 Blood Pressure Mean 88 99 Pulse Ox 98 96 90 Oxygen Delivery Method Room Air Room Air Positive well nourished and well developed General Appearance ED: well developed and NAD HEENT Reports TM's clear and moist mucous membranes normocephalic and atraumatic; Negative for trauma or tenderness Tympanic Membrane ED: Yes TM's clear Eyes PERRL and EOMs intact bilaterally General Eye ED: Negative for pale conjunctiva or scleral icterus Neck no lymphadenopathy, supple and no JVD General: Negative for tenderness Chest Wall inspection of chest normal and palpation of chest normal Chest: Negative for tenderness Resp normal respiratory effort and clear to auscultation bilaterally Effort and Inspection: Negative for respiratory distress or pain with movement Auscultation: Negative for rhonchi, wheezes or diminished lung sounds Cardio regular rate, regular rhythm, S1 normal heart sound, S2 normal heart sound and no murmurs Peripheral Pulses: pulses 2+ throughout GI normal to inspection, nondistended, normoactive bowel sounds, soft to palpation, non-distended and no masses GI Narrative: Tenderness palpation over the epigastric region with some guarding. There is no rebound, rigidity, peritoneal signs. Rectal exam performed. No rectal masses noted. There is no hemorrhoids. No fissures noted. Stool appeared to be yellow-brown and Hemoccult was sent for testing. Back/Spine no CVA tenderness and no thoracic nor lumbar tenderness Extremity normal to inspection General Extremety ED: Negative for edema General Extremity: Negative for edema Neuro oriented x3, CN's II-XII intact bilaterally, no sensory deficits noted and gait normal Sensorium / Orientation: awake, alert, oriented to person, oriented to place and oriented to time Motor Exam: strength 5/5 throughout and strength abnormal Psych mental status grossly normal Skin no rashes or lesions noted and no wounds MDM MDM MDM Narrative Medical decision making narrative: Lab work-up was unremarkable. Patient had a CT scan of the abdomen pelvis that was unremarkable. hCG was negative. Patient did have a urinalysis that was positive for UTI and on repeat discussion with patient she does state that she has had some dysuria. Patient will be started on Bactrim and Prevacid. She is to keep her appointment with her surgeon in 5 days to have the upper scope. Patient had no further vomiting while in the department. She will be given a prescription for Zofran. She is advised to return if persistent vomiting with blood clots, worsening pain, or condition should worsen anyway. Lab Data Attestation: I reviewed the patient's lab results. Labs: Laboratory Results - last 24 hr 11/07/22 11/07/22 11/07/22 21:22 21:22 21:22 WBC 8.4 RBC 4.73 Hgb 14.0 Hct 41.1 MCV 86.9 MCH 29.6 MCHC 34.1 RDW Std Deviation 45.5 H RDW Coeff of Leonor 14.1 Plt Count 425 MPV 10.8 Immature Gran % (Auto) 0.400 Neut % (Auto) 58.3 Lymph % (Auto) 31.1 [place] % (Auto) 7.3 Eos % (Auto) 2.4 Baso % (Auto) 0.5 Absolute Neuts (auto) 4.9 Absolute Lymphs (auto) 2.61 Nucleated RBC % 0 Sodium 141 Potassium 3.8 Chloride 112 H Carbon Dioxide 25.0 Anion Gap 4 L BUN 10 Creatinine 0.95 Estim Creat Clear Calc 91.32 Est GFR (MDRD) Af Amer 93 Est GFR (MDRD) Non-Af 77 BUN/Creatinine Ratio 10.6 Glucose 114 H Calcium 9.2 Total Bilirubin Direct Bilirubin AST ALT Alkaline Phosphatase Total Protein Albumin Globulin Lipase Serum , Qual NEGATIVE Urine Color Urine Clarity Urine pH Ur Specific [place] Urine Protein Urine Glucose (UA) Urine Ketones Urine Occult Blood Urine Nitrite Urine Bilirubin Urine Urobilinogen Ur Leukocyte Esterase Urine RBC Urine WBC Ur Squamous Epith Cells Urine Bacteria Urine Mucus 11/07/22 11/07/22 21:22 21:25 WBC RBC Hgb Hct MCV MCH MCHC RDW Std Deviation RDW Coeff of Leonor Plt Count MPV Immature Gran % (Auto) Neut % (Auto) Lymph % (Auto) [place] % (Auto) Eos % (Auto) Baso % (Auto) Absolute Neuts (auto) Absolute Lymphs (auto) Nucleated RBC % Sodium Potassium Chloride Carbon Dioxide Anion Gap BUN Creatinine Estim Creat Clear Calc Est GFR (MDRD) Af Amer Est GFR (MDRD) Non-Af BUN/Creatinine Ratio Glucose Calcium Total Bilirubin 0.40 Direct Bilirubin 0.10 AST 42 H ALT 117 H Alkaline Phosphatase 85 Total Protein 7.3 Albumin 3.9 Globulin 3.4 Lipase 215 Serum , Qual Urine Color Yellow Urine Clarity Cloudy Urine pH 6.0 Ur Specific [place] 1.020 Urine Protein Negative Urine Glucose (UA) Normal Urine Ketones Negative Urine Occult Blood 10 H Urine Nitrite Negative Urine Bilirubin Negative Urine Urobilinogen Normal Ur Leukocyte Esterase 500 H Urine RBC 0-5 SEEN Urine WBC 25-50 SEEN Ur Squamous Epith Cells 5-10 SEEN Urine Bacteria 1+ Urine Mucus 0 SEEN Radiography Diagnostic Testing: Clinical Impression(s) from Imaging Studies Abdomen/Pelvis CT 11/07/22 23:10 IMPRESSION: 1. Fatty liver. 2. Cholecystectomy. 3. Normal appendix. 4. No acute abdominal pelvic abnormality. Electronically Signed: Antelmo Diaz MD at 0:27 EST , Discharge Plan Triage Chief Complaint: Abd Pain ED Provider: Emmanuel Corona Dx/Rx/DC Orders Clinical Impression: Abdominal pain, Hematemesis, UTI (urinary tract infection) Instructions: [place] Tear, ED Abdominal Pain Unkn Cause Fem, ED Upper GI Bleeding (Stable), ED Cystitis Female Adult Prescriptions: New sulfamethoxazole-trimethoprim [sulfamethoxazole-trimethoprim] 800-160 mg tablet 1 tab PO BID Qty: 6 0RF ondansetron [ondansetron] 4 mg tablet,disintegrating 4 mg PO Q8H PRN PRN (Reason: Nausea) Qty: 10 0RF lansoprazole [Prevacid] 30 mg capsule,delayed release(DR/EC) 30 mg PO DAILY Qty: 14 0RF No Action multivitamin Tablet 1 tab PO DAILY Latuda 20 mg Tablet 120 mg PO QHS citalopram [Celexa] 20 mg Tablet 40 mg PO QHS dicyclomine 20 mg tablet 20 mg PO TID PRN (Reason: abdominal pain) Qty: 14 0RF ondansetron 4 mg tablet,disintegrating 4 mg PO Q6H PRN (Reason: nausea and vomiting) Qty: 12 0RF Primary Care Provider: Magnolia Chen Referrals: Magnolia Chen MD [Primary Care Provider] - Antelmo Alegre MD [Med Staff - Active Staff] - 3-5 Days Disposition Disposition: Home, Self Care
[2022-11-07 23:32] LABS: AST(SGOT) 42 U/L (15-37); Alanine Aminotransfer ALT/SGPT 117 U/L (13-56); Albumin, Serum 3.9 g/dL (3.2-5.0); Alkaline Phosphatase 85 U/L (45-117); Globulin 3.4 g/dL (2.2-4.2); Lipase 215 U/L (73-393); Protein, Total 7.3 g/dL (6.4-8.2)
[2022-11-07 23:44] VITALS: BP 130/84; PULSE 74; RESP 18; O2SAT 96
[2022-11-07] MEDS: 0.9% Normal Saline 1,000 ML 125 ML IV (23:48)
[2022-11-07] MEDS: Ondansetron 4 MG/2 ML Vial IV (23:49)
[2022-11-07] MEDS: Mag Hydrox/Al Hydrox/Simeth 30 ML UDC PO (23:53)
[2022-11-08 00:33] VITALS: BP 110/64; PULSE 78; RESP 18; O2SAT 90
[2022-11-08] MEDS: Smz/Tmp Ds Tablet 1 TABLET PO (00:44)
== END 2022-11-08 00:49 | disposition home or self-care (01) ==
PROVIDERS: Emergency Provider Emergency Medicine; PCP Internal Medicine; Visit Provider Emergency Medicine
DX: N39.0 Urinary tract infection, site not specified (principal); F31.9 Bipolar disorder, unspecified; K92.0 Hematemesis; F41.9 Anxiety disorder, unspecified; J45.909 Unspecified asthma, uncomplicated; E28.2 Polycystic ovarian syndrome; Z90.49 Acquired absence of other specified parts of digestive tract; Z79.899 Other long term (current) drug therapy; Z87.891 Personal history of nicotine dependence; R10.9 Unspecified abdominal pain
CPT/HCPCS: 74176; 80048; 80076; 81001; 82274; 83690; 84703; 85025; 96365; 96375; 99283; A4216; J2405

== ENCOUNTER 2022-11-12 11:50 | Day surgery (SDC) | payer MEDICAID, SELFPAY ==
[2022-11-12] VITALS (7 sets, daily range): BP systolic 103–124; BP diastolic 58–70; PULSE 61–81; RESP 16; TEMP 36.2–36.4; O2SAT 98–99; BMI 41.8
[2022-11-12 12:50] LABS: Internal QC Validated? YES +Cl - CLEAR BKGD; Pregnancy, Urine Negative Negative
[2022-11-12] MEDS: Lactated Ringers 1,000 ML 15 ML IV (12:58)
--- NOTE | 2022-11-12 13:29 | HP.PCM_ITS ---
History and Physical Date of Admission: 11/12/22 Date of Service:? 11/02/22 MR#: [id number] Acct: [id number] Name:LOW JONES Rep #: [id number] : 1995 ? ? Provider: Dr. Antelmo Alegre MD Age/Sex:? 27/F ? ? Location: [facility] Status: Signed Intake Vital Signs ? 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 Is patient in pain?: Yes (umbilical area, worse with eating) Pain scale (1-10): 2 Allergies aripiprazole Allergy (Verified 11/02/22 14:13) Hives Medications lurasidone 20 mg tablet (Latuda) 120 mg PO QHS depression 11/20/21 [History Confirmed 11/02/22] citalopram 20 mg tablet (Celexa) 40 mg PO QHS mood 09/23/22 [History Confirmed 11/02/22] ondansetron 4 mg disintegrating tablet 4 mg PO Q6H PRN nausea and vomiting #10 t abs 10/05/22 [Rx Confirmed 11/02/22] multivitamin 1 tab PO DAILY 10/16/22 [History Confirmed 11/02/22] dicyclomine 20 mg tablet 20 mg PO TID PRN abdominal pain #14 tabs 10/21/22 [Rx Confirmed 11/02/22] ondansetron 4 mg disintegrating tablet 4 mg PO Q6H PRN nausea and vomiting #12 tabs 10/21/22 [Rx Confirmed 11/02/22] cholestyramine (with sugar) 4 gram oral powder 2 g PO DAILY epigastric pain #52 grams 11/02/22 [Rx Confirmed 11/02/22] omeprazole 20 mg capsule,delayed release 20 mg PO DAILY epigastric? #21 caps 11/02/22 [Rx Confirmed 11/02/22] PFSH Medical History? Anxiety Asthma Bipolar disorder Chest pain Cholecystitis with cholelithiasis Depression Elective induction of labor planned Injury of head and neck Marginal placenta previa Migraines PCOS (polycystic ovarian syndrome) Spontaneous vaginal delivery Surgical History? History of cholecystectomy History of surgery Hx of tonsillectomy Family History? Father Anxiety Depression Mental disorder Suicide attemptGrandfather Cancer ?? ? lungGrandmother Myocardial infarction CVA (cerebral vascular accident) Social History? household members:? family housing:? house current occupational status:? employed current occupation:? [employer] sexually active:? Yes Smoking Status:? Former smoker quit date: 12/02/19 pack-years: 4 Electronic Cigarette Use:? not used alcohol intake:? current alcohol intake frequency: holidays/special occasions only substance use type:? does not use what type of physical activity do you participate in:? walking frequency:? 5-6 times per week seatbelt use:? always do you feel safe at home:? Yes HPI HPI HPI: Patient is a 27-year-old female who presents for ongoing abdominal pain that has persisted beyond a laparoscopic cholecystectomy with intraoperative cholangiogram performed on 09/23/2022.? Patient's last visit with me was 10/04/2022 and was followed by CT imaging of the abdomen pelvis due to persistent discomfort.? At that CT we identified a right-sided kidney stone that was at the junction between the ureter and the bladder.? Patient was advised to maintain adequate hydration and I informed her I expected her discomfort to improve thereafter.? She reports today stating she experienced some improvement in her abdominal discomfort after the kidney stone passed, but then the pain returned.? She notes that her pain is now returned more fully and she has lost her job because she took off too much work.? She describes this pain as located in the right upper quadrant and radiating to the shoulder blades and into her back.? She reports that it is worse after eating and when she is relaxing at night or first thing in the a.m.? She states that it is present irrespective of what type of diet she has tried whether that be liquid, restricting fats, or other.? The pain is described as alternatively stabbing or burning.? This discomfort is also associated with nausea and occasional vomiting.? She states when she vomits it seems to be primarily stomach acid contents.? Collectively the symptoms have led to a weight loss of some 20 pounds since surgery.? She denies any associated bloating.? She reports that her bowel movements are normal and I confirm that she is having at least 1 bowel movement daily which is soft and formed in c haracter.? She states her total toilet time is roughly 10 minutes and she has not noticed any blood.? Outside of these formed stools, she does admit to diarrhea with a frequency occurring approximately every other day.? She states that she does have a history of reflux, but this has not been a problem lately.? She states she usually manages the symptoms with Tums and confirms that they are more resembling heartburn than reflux.? She states she has not had any caffeine since surgery.? She has not had any marinara sauce and has limited ingestion of any fried foods to try to minimize her likelihood for this pain. Below is recapitulated from patient's prior visit for ease of review: ?Patient presents for second postoperative visit after laparoscopic cholecystectomy with intraoperative cholangiogram 09/23/2020.? Her first postop and last visit was 10/01/2022.? At that visit she had described near complete resolution of her postoperative abdominal pain and progressive return of a appetite.? She states shortly after this visit, however, she started with upper abdominal pain that moved to her right side and back.? She also noticed worsening of her dietary intolerance with progressive nausea but no vomiting.? She reports that the symptoms have become so intense that she is not eating or sleeping well.? She does report that she has gone back to work, but that this is limited to sitting in a chair.? She denies any experience of fevers or chills at home.? She also reports that her bowel movements are normal and that she is experiencing them with a daily frequency.? Along with the above, patient admits to a new cough.? She reports this cough is dry and when it happens it hurts everywhere.? Patient has no history of kidney stones and denies any difficulty with urination. ROS General General: No weight change, appetite, fatigue, colon cancer, breast cancer or weakness HEENT HEENT: No difficulty swallowing, eye injury, eye surgery, swollen glands or hoarseness Endo Endocrine: No thyroid disease, diabetes mellitus, thyroid cancer, Hair loss, heat intolerance or cold intolerance Skin Skin: No rash or changing moles Breast Breast: No left breast lump, right breast lump, nipple discharge, breast pain, abnormal mammogram, abnormal US or breast enlargement Musc Musculoskeletal: No back problems, arthritis, rheumatoid arthritis, gout or joint pain Cardio Cardiovascular: No murmur, pacemaker, heart disease, atrial fibrillation, high blood pressure, heart attack, heart stent, palpitations, shortness of breat with exertion or chest pain Psych Psychiatric: No depression, anxiety or hearing voices Resp Respiratory: No shortness of breath, No sleep apnea, No cough, No COPD, No asthma, No emphysema and No wheezing Gastro Gastrointestinal: Yes abdominal pain, No nausea or vomiting, No diarrhea, No constipation, No blood in stool, No acid reflux, No hemorrhoids, No ulcers, No gallbladder problem and No black,tarry stools Additional Details: Umbilical area - Sharp comes and goes, worse with eating Remi Hematologic: No blood thinners, No blood disorders, No bleeding, No anemia and No blood clots Neuro Neurologic: No system reviewed and no additional complaints, except as documented, No as per HPI, No abnormal gait, No abnormal hearing, No abnormal movements, No abnormal speech, No behavioral changes, No burning sensations, No confusion, No convulsions, No disequilibrium, No dizziness, No localized weakness, No frequent falls, No headache(s), No lack of coordination, No loss of vision, No memory loss, No numbness, No other visual disturbances, No radicular pain, No restless legs, No sensory deficit, No syncope, No tingling, No tremor(s), No weakness and No other Exam Const General: cooperative, no acute distress and anxious Orientation: alert, awake and oriented x3 Resp Effort & Inspection: normal respiratory effort GI Other: Well-healed port site incisions, abdomen is nondistended and soft.? Patient has minimal tenderness with palpation of the epigastrium and medial right upper quadrant.? Otherwise her exam is unremarkable. General: CVA tenderness on the right Assessment and Plan Assessment and Plan (1) Abdominal pain: ?Status:?Acute ?Comment: 26-year-old female who status post laparoscopic cholecystectomy with intraope rative cholangiogram on 09/23/2022.? Procedure originally proceeded in uncomplicated fashion, but patient complained of progressive abdominal pain and nausea and required 2 postoperative visits with the last being 10/04/2022.? Symptomatically she had improved by that time and we had a interval CT of the abdomen pelvis showing a right-sided kidney stone that was nearing passage into the bladder.? Patient confirms that this stone passed and she had transient relief of her symptoms, but then the symptoms did return and this led to an interval ER visit on 10/21/2022.? At that visit laboratories were obtained and were all reassuring.? With the recency of her CT ordered by surgery, emergency medicine did not deem it necessary to repeat any imaging and recommended follow- up with me.? Today patient complains of ongoing right upper quadrant, postprandial discomfort and is associated with nausea, intermittent vomiting, and intermittent diarrhea.? 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 Therefore, I am also suspicious of possible peptic ulcer versus gastritis versus GERD.? Given the significant negative impact this has had on patient's livelihood?including loss of her job?I am inclined to pursue both diagnoses in tandem and have prescribed omeprazole 20 mg daily as well as cholestyramine 2 mg twice daily.? I have shared with patient that I would also like to pursue a EGD with biopsy as necessary given the severity of her symptoms.? I did review patient's prior CT imaging with her in detail as well as her procedure?time cholangiogram.? Both of these imaging studies are reassuring against a postoperative bile leak. ?Plan: ? Omeprazole 20 mg daily ? Cholestyramine for diarrhea 2 mg twice daily ? Schedule for diagnostic EGD (2) Diarrhea: ?Status:?Acute ? ? ? Medications: New omeprazole 20 mg? PO DAILY 21 caps 1RF epigastric ? ? cholestyramine (with sugar) 4 gram ?? administer w/meal; avoid other meds within 1hr before or 4-6hr after dose 2 grams? PO DAILY 52 grams 1RF epigastric pain ? ? I have examined the patient the following changes are noted: Patient required an additional ER evaluation on 11/07/2022 due to intractable nausea and vomiting. She reports that she has somewhat better today, but does not feel as though the medications have been very efficacious.. We will plan to proceed to the endoscopy suite for planned diagnostic EGD to see if this helps elucidate a cause for patient's symptoms.
--- NOTE | 2022-11-12 13:30 | EGD_PTH ---
PATIENT: LOW PRETTY LOC: EN U#:[id number] AGE/SX: 27/F ROOM: RE11/12/[address]: Dr. Antelmo Alegre MD : 1995 BED: DIS: 11/12/2022 SPEC #: [id number] RECD: 11/12/22 14:01 STATUS: ESTELA RASHARD #: [id number] KOBY: 11/12/22 13:[address]: Antelmo Alegre DEPT: SURGICAL PATHOLOGY RECD BY: Loni Rosado ENTERED: 11/13/22 07:31 SP TYPE: EGD BIOPSY OT DR: Dr. Magnolia Chen MD Tissues: A - Gastric mucous membrane B - Esophagus, NOS Procedures: Special Stain Group II Surgery Specimen Level IV Alcian Blue/PAS (control) HEADER OPER[place] [place] DIAGNOSIS: Abdominal pain TISSUE SUBMITTED: A ? Antrum biopsy for H. pylori and path, B ? Gastroesophageal junction MICROSCOPIC DIAGNOSIS A. Antrum, biopsy: Mild gastritis. See microscopic description and comment. B. Gastroesophageal junction, biopsy: Fragments of gastroesophageal mucosa with chronic inflammation. Intestinal metaplasia (goblet cell metaplasia) not identified. See comment. SJ:ruth 11/14/2022 COMMENT A. The results of immunohistochemistry for Helicobacter pylori will be reported separately ([id number]). B. Alcian blue/PAS stain with matched control is used in the evaluation of the specimen. MICROSCOPIC DESCRIPTION Slides are reviewed. A. The specimen shows fragments of gastric mucosa with chronic inflammatory cell infiltrates in the lamina propria consisting of lymphocytes and plasma cells, consistent with mild chronic gastritis. GROSS DESCRIPTION A - Received in fixative is one container labeled with the patient's name and designated antrum biopsy. The specimen consists of two irregular fragments of light lorenzo soft tissue that in aggregate measure 0.6 x 0.3 x 0.1 cm. The specimen is totally submitted in one cassette. B - Received in fixative is one container labeled with the patient's name and designated GE junction. The specimen consists of multiple irregular fragments of light lorenzo soft tissue that in aggregate measure 0.5 x 0.3 x 0.1 cm. The specimen is totally submitted in one cassette. / RODRIGO:ruth 11/13/2022 TC:3 CPT: 62362 x2, 99212
--- NOTE | 2022-11-12 13:30 | IMM_PTH ---
PATIENT: LOW PRETTY LOC: EN U#:[id number] AGE/SX: 27/F ROOM: RE11/12/[address]: Dr. Antelmo Alegre MD : 1995 BED: DIS: 11/12/2022 SPEC #: [id number] RECD: 11/13/22 08:53 STATUS: ESTELA REQ #: [id number] KOBY: 11/12/22 13:[address]: Antelmo Alegre DEPT: IMMUNOHISTOCHEMISTRY RECD BY: Allie Celaya ENTERED: 11/13/22 08:53 SP TYPE: IMMUNO OTHR DR: Dr. Magnolia Chen MD Tissues: A - Stomach, NOS Procedures: H Pylori (initial) PHYSICIAN & INSTITUTION [place] [id number] SPECIMEN INFORMATION: Tissue Source: A ? Antrum biopsy Clinical Info: Abdominal pain Specimen Number: [id number] CPT code: 66866 METHODOLOGY: Deparaffinized sections of prefer/formalin-fixed tissue or PAP/DQ stained slides are incubated with monoclonal/polyclonal antibodies/oligonucleotide probes. Localization is made via biotin free immunoperoxidase method. Appropriate controls are performed and reacted as expected. Results on target cell population are indicated in the following table: RESULTS: ANTIBODY / CLONE RESULT Block A H Pylori (polyclonal) negative These tests were developed and their performance characteristics determined by [facility]. They may not have been cleared or approved by the U.S. Food and Drug Administration. The FDA has determined that such clearance or approval is not necessary. The above immunohistochemical/dualISH markers are ordered and reviewed by the Pathologist. INTERPRETATION: A. Antrum, biopsy: Negative for Helicobacter pylori organisms. SJ:ruth 11/14/2022
--- NOTE | 2022-11-12 14:02 | OP.EGD_ITS ---
Patient Name: Yokasta Wilson Procedure Date: 11/12/2022 1:29 PM Date of : 1995 Age: 27 Procedure: Upper GI endoscopy Indications: Epigastric abdominal pain, Abdominal pain in the right upper quadrant, Heartburn, Nausea with vomiting Providers: Antelmo Alegre MD Referring MD: Magnolia Chen Md Medicines: See the Anesthesia note for documentation of the administered medications Patient Profile: Refer to note in patient chart for documentation of history and physical. Complications: No immediate complications. Estimated blood loss: Minimal. Procedure: Pre-Anesthesia Assessment: - The heart rate, respiratory rate, oxygen saturations, blood pressure, adequacy of pulmonary ventilation, and response to care were monitored throughout the procedure. After obtaining informed consent, the endoscope was passed under direct vision. Throughout the procedure, the patient's blood pressure, pulse, and oxygen saturations were monitored continuously. The gastroscope was introduced through the mouth, and advanced to the second part of duodenum. The upper GI endoscopy was accomplished without difficulty. The patient tolerated the procedure fairly well. Scope In: 1:35:04 PM Scope Out: 1:48:59 PM Total Procedure Duration Time 0 hours 13 minutes 55 seconds Findings: The duodenal bulb, first portion of the duodenum and second portion of the duodenum were normal. No biopsies or other specimens were collected for this exam. Diffuse mildly erythematous mucosa without bleeding was found in the gastric antrum. Biopsies were taken with a cold forceps for Helicobacter pylori cultures. Estimated blood loss was minimal. The Z-line was irregular and was found 36 cm from the incisors. Biopsies were taken with a cold forceps for histology. Estimated blood loss was minimal. The cardia and gastric fundus were normal on retroflexion. The exam of the esophagus was otherwise normal. Impression: - Normal duodenal bulb, first portion of the duodenum and second portion of the duodenum. No specimens collected. - Erythematous mucosa in the antrum. Biopsied. - Z-line irregular, 36 cm from the incisors. Biopsied. Recommendation: - Discharge patient to home (via wheelchair). - Resume previous diet today. - Continue present medications. - Await pathology results. - Telephone my office for pathology results in 1 week. Procedure Code(s): --- Professional --- 52285, Esophagogastroduodenoscopy, flexible, transoral; with biopsy, single or multiple Diagnosis Code(s): --- Professional --- K31.89, Other diseases of stomach and duodenum K22.8, Other specified diseases of esophagus R10.13, Epigastric pain R10.11, Right upper quadrant pain R12, Heartburn R11.2, Nausea with vomiting, unspecified CPT copyright 2017 [employer]. All rights reserved. The codes documented in this report are preliminary and upon doctor of nurse anesthesia practice review may be revised to meet current compliance requirements. Antelmo Alegre MD 11/12/2022 2:01:47 PM This report has been signed electronically. Number of Addenda: 0 Note Initiated On: 11/12/2022 1:29 PM
--- NOTE | 2022-11-12 14:02 | OP.CCLET_ITS ---
11/12/2022 Magnolia Chen Md Re : Upper GI endoscopy procedure for Yokasta Wilson Dear April This procedure was performed on Saturday, November 12, 2022. My impressions and recommendations are as follows: Impressions : - Normal duodenal bulb, first portion of the duodenum and second portion of the duodenum. No specimens collected. - Erythematous mucosa in the antrum. Biopsied. - Z-line irregular, 36 cm from the incisors. Biopsied. Recommendations : - Discharge patient to home (via wheelchair). - Resume previous diet today. - Continue present medications. - Await pathology results. - Telephone my office for pathology results in 1 week. My findings are described in the full procedure note, which is enclosed. If I can be of further assistance, please feel free to contact me at Doctor phone number(s): , Work: . Sincerely, Antelmo Alegre MD 11/12/2022 2:01:47 PM This report has been signed electronically.
== END 2022-11-12 14:51 | disposition home or self-care (01) ==
LOC: EN 11:50 → AC 11:52
PROVIDERS: Anesthesiology; PCP Internal Medicine; Referring Provider Internal Medicine; Visit Provider Surgery
PROC: 0DJ08ZZ Inspection of Upper Intestinal Tract, Via Natural or Artificial Opening Endoscopic (ICD-10-PCS; CPT 43235; principal; 2022-11-12 13:25)
DX: K29.50 Unspecified chronic gastritis without bleeding (principal); F31.9 Bipolar disorder, unspecified; K31.89 Other diseases of stomach and duodenum; K22.89 Other specified disease of esophagus; K20.90 Esophagitis, unspecified without bleeding; F41.9 Anxiety disorder, unspecified; K76.0 Fatty (change of) liver, not elsewhere classified; Z79.899 Other long term (current) drug therapy; Z87.891 Personal history of nicotine dependence
CPT/HCPCS: 43239; 81025; 88305; 88313; 88342; J7120; J2405

== ENCOUNTER 2023-03-03 20:47 | Emergency (ER) | payer MEDICAID, SELFPAY ==
[2023-03-03 20:48] VITALS: BP 124/72; PULSE 97; RESP 16; TEMP 36.4; BMI 41.3
--- NOTE | 2023-03-03 21:08 | US_ITS ---
EXAM: US , TRANSVAGINAL CLINICAL INDICATION: pelvic pain, vaginal bleeding TECHNIQUE: Real-time transvaginal obstetrical ultrasound of the maternal pelvis and a first trimester with image documentation. Transvaginal imaging was used for better evaluation of the fetus and adnexa. This report was created using [employer] report generation technology. COMPARISON: None. FINDINGS: GESTATION: Single intrauterine gestation sac. Mean sac diameter is 9 mm corresponding to 5 weeks 5 days. Embryo and cardiac activity not yet identified. No sac visualized. PLACENTA/AMNIOTIC FLUID: No subchorionic hemorrhage. UTERUS/CERVIX: Unremarkable. No myometrial mass. The uterus measures 7.4 x 6.1 x 4.5 cm. OVARIES: Unremarkable. No mass. The right ovary measures 2.4 x 2.0 x 2.3 cm. The left ovary measures 3.4 x 2.2 x 2.5 cm. FREE FLUID: No free fluid. US/Transvaginal w/Preg US IMPRESSION: Early intrauterine at 5 weeks and 5 days. No specific abnormality. Electronically Signed: Antelmo Diaz MD at 22:42 EDT ,
--- NOTE | 2023-03-03 21:15 | EDS_ITS ---
HPI <MIGEL Stallings - Last Filed: 03/03/23 22:14> HPI - Female History of Present Illness Chief Complaint: Vag Bld, Preg Narrative Narrative: BeenPatient presenting today due to vaginal bleeding and pelvic cramping that started yesterday around 6 PM. She states that the amount has ranged in severity but she has gone through about 3 pads. She is currently 6 to 7 weeks but has not had any care up to this point. She has a history of miscarriage and is G4, P1. She reports she feels nauseous and has vomited twice. She has had 3 episodes of loose stool. She denies any fever, chest pain, shortness of breath. [facility] <MIGEL Satllings - Last Filed: 03/03/23 22:14> [facility] Medical History Anxiety Asthma Bipolar disorder Chest pain Cholecystitis with cholelithiasis Depression Elective induction of labor planned Fatty liver Former smoker Gastric reflux Heartburn Injury of head and neck Marginal placenta previa Migraines PCOS (polycystic ovarian syndrome) Spontaneous vaginal delivery Wears glasses Home Medications lurasidone 20 mg tablet (Latuda) 120 mg PO QHS depression 11/20/21 [History Last Taken 03/04/22 22:00 40 mg] citalopram 20 mg tablet (Celexa) 40 mg PO QHS mood 09/23/22 [History Last Taken Unknown] multivitamin 1 tab PO DAILY 10/16/22 [History Last Taken Unknown] dicyclomine 20 mg tablet 20 mg PO TID PRN abdominal pain #14 tabs 10/21/22 [Rx Last Taken Unknown] ondansetron 4 mg disintegrating tablet 4 mg PO Q6H PRN nausea and vomiting #12 tabs 10/21/22 [Rx Last Taken Unknown] lansoprazole 30 mg capsule,delayed release (Prevacid) 30 mg PO DAILY #14 caps 11/08/22 [Rx Last Taken Unknown] sulfamethoxazole 800 mg-trimethoprim 160 mg tablet 1 tab PO BID #6 TABLETS 11/08/22 [Rx Last Taken Unknown] Allergy/AdvReac Type Severity Reaction Status Date / Time aripiprazole Allergy Hives Verified 03/03/23 21:00 Family History Father Anxiety Depression Mental disorder Suicide attempt Grandfather Cancer lung Grandmother Myocardial infarction CVA (cerebral vascular accident) Surgical History History of cholecystectomy History of surgery Hx of tonsillectomy Social History household members: family housing: house current occupational status: employed current occupation: [employer] sexually active: Yes Smoking Status: Former smoker quit date: 12/02/19 pack-years: 4 Electronic Cigarette Use: not used alcohol intake: current alcohol intake frequency: holidays/special occasions only substance use type: does not use what type of physical activity do you participate in: walking frequency: 5-6 times per week seatbelt use: always do you feel safe at home: Yes ROS <MIGEL Stallings - Last Filed: 03/03/23 22:14> ROS ED Constitutional Constitutional ED: Denies chills or fever(s) Cardiovascular Cardiovascular: Denies chest pain or palpitations Respiratory/Chest Respiratory/Chest: Denies cough or dyspnea Gastrointestinal Gastrointestinal: Reports abdominal pain, diarrhea, nausea and vomiting; Denies constipation Genitourinary Genitourinary ED: Denies dysuria, hematuria or urinary urgency Musculoskeletal Musculoskeletal: Denies back pain or neck pain Integumentary Denies Abrasions or rash Neurologic Neurologic: Denies dizziness or weakness Psychiatric Psychiatric: Denies anxiety, depression, suicidal ideation or suicidal thoughts EXAM <MIGEL Stallings - Last Filed: 03/03/23 22:14> Physical Exam Const Vital Signs: 03/03/23 20:48 03/03/23 20:48 03/03/23 22:47 Temperature 97.6 F L 97.6 F L Temperature Source Temporal Temporal Pulse Rate 97 97 80 Respiratory Rate 16 16 16 Blood Pressure 124/72 H 124/72 H 126/70 H Blood Pressure Mean 89 89 88 Pulse Ox 98 Positive well nourished, well developed and no apparent distress General Appearance ED: well developed HEENT Reports normocephalic and head/scalp atraumatic Mouth ED: Yes moist mucous membranes normal Eyes PERRL and EOMs intact bilaterally Neck full ROM and supple Chest Wall inspection of chest normal Resp normal respiratory effort and clear to auscultation bilaterally Cardio regular rate and regular rhythm GI soft to palpation, non-tender, non-distended and no masses Back/Spine normal ROM and normal to inspection Extremity normal to inspection and full ROM Neuro oriented x3, CN's II-XII intact bilaterally, moves all extremities, no focal motor deficits and no sensory deficits noted Sensorium / Orientation: awake and alert Psych mental status grossly normal and thought process normal Skin no rashes or lesions noted and no wounds <Dr. Emmanuel Corona DO - Last Filed: 03/03/23 22:55> Physical Exam Const Vital Signs: 03/03/23 20:48 03/03/23 20:48 03/03/23 22:47 Temperature 97.6 F L 97.6 F L Temperature Source Temporal Temporal Pulse Rate 97 97 80 Respiratory Rate 16 16 16 Blood Pressure 124/72 H 124/72 H 126/70 H Blood Pressure Mean 89 89 88 Pulse Ox 98 MDM <MIGEL Stallings - Last Filed: 03/03/23 22:14> [facility] MDM Narrative Medical decision making narrative: Patient presenting today due to pelvic cramping and vaginal bleeding that started yesterday evening around 6 PM. She states that the amount of bleeding has ranged in severity but she is gone through about 3 pads. She is G4, P1 and has a history of miscarrying. She has not had any care up to this point but believes she is around 6 to 7 weeks . CBC will be obtained to rule assess for anemia and leukocytosis, serum hCG quant will be obtained as well as patient's blood/Rh type. She is well-appearing and in no acute distress. Vital signs are stable. She has been given IV fluids. Transvaginal ultrasound will be obtained. Lab Data Labs: Laboratory Results - last 24 hr 03/03/23 03/03/23 21:19 21:19 WBC 8.2 RBC 4.29 Hgb 12.5 Hct 37.9 MCV 88.3 MCH 29.1 MCHC 33.0 RDW Std Deviation 45.1 H RDW Coeff of Leonor 14.0 Plt Count 402 MPV 10.2 Immature Gran % (Auto) 0.200 Neut % (Auto) 67.8 Lymph % (Auto) 22.0 Gilmer % (Auto) 7.5 Eos % (Auto) 1.9 Baso % (Auto) 0.6 Absolute Neuts (auto) 5.6 Absolute Lymphs (auto) 1.81 Nucleated RBC % 0 HCG, Quant 5957 H Radiography Diagnostic Testing: Clinical Impression(s) from Imaging Studies Obstetrics Ultrasound 03/03/23 21:08 IMPRESSION: Early intrauterine at 5 weeks and 5 days. No specific abnormality. Electronically Signed: Antelmo Diaz MD at 22:42 EDT , <Dr. Emmanuel Corona, DO - Last Filed: 03/03/23 22:55> [facility] MDM Narrative Medical decision making narrative: Patient presenting today due to pelvic cramping and vaginal bleeding that started yesterday evening around 6 PM. She states that the amount of bleeding has ranged in severity but she is gone through about 3 pads. She is G4, P1 and has a history of miscarrying. She has not had any care up to this point but believes she is around 6 to 7 weeks . CBC will be obtained to rule assess for anemia and leukocytosis, serum hCG quant will be obtained as well as patient's blood/Rh type. She is well-appearing and in no acute distress. Vital signs are stable. She has been given IV fluids. Transvaginal ultrasound will be obtained. I have personally performed a face to face assessment of the patient and have reviewed the ANDRES Note. I performed a substantive portion of the visit including all aspects of the following. My chou findings include: History is [patient presents with vaginal bleeding that started yesterday. Patient thinks that she is 6 to 7 weeks . She is G4, P1 with several miscarriages. Patient complaining of some lower abdominal cramping. She is passed 1 clot. She denies passing tissue. She denies feeling lightheaded or dizzy. Patient denies urinary symptoms. She denies fever. She does not know her blood type.] Exam is [HEENT-PERRLA, EOMI. Cranial nerves II through XII grossly intact. TMs clear. Mucous membranes moist. No adenopathy. Cardiovascular-regular rate and rhythm without murmur or ectopy Lungs-clear to auscultation, chest wall stable without crepitus or subcu emphysema Abdomen-normoactive bowel sounds, soft, nontender, no rebound or rigidity, no peritoneal signs. Extremities-intact ?4, normal range of motion, normal pulses, atraumatic] Medical Decison Making [patient presents with vaginal bleeding x2 days. IV line established on arrival. She was given normal saline. CBC with differential obtained showed a white count of 8.2 and hemoglobin 12.5 with a platelet count of 402. Quantitative hCG was 5957. Blood type is O+. Patient had pelvic ultrasound that showed intrauterine measuring 5 weeks and 5 days with no specific abnormality. No cardiac activity noted at this time. I discussed case with ELECTRICAL DEVELOPMENT ENGINEER on-call for Dr. Roula Corona who is her Dr. Corona and they will follow patient on in the office. Patient will require repeat quantitative hCG in 2 days. Patient advised to return to the ER if persistent heavy bleeding if going through more than a pad an hour for 4 consecutive hours or severe abdominal pain or if she get lightheaded or dizzy or condition should worsen anyway.] Other additions or changes: [None] Lab Data Labs: Laboratory Results - last 24 hr 03/03/23 03/03/23 21:19 21:19 WBC 8.2 RBC 4.29 Hgb 12.5 Hct 37.9 MCV 88.3 MCH 29.1 MCHC 33.0 RDW Std Deviation 45.1 H RDW Coeff of Leonor 14.0 Plt Count 402 MPV 10.2 Immature Gran % (Auto) 0.200 Neut % (Auto) 67.8 Lymph % (Auto) 22.0 Gilmer % (Auto) 7.5 Eos % (Auto) 1.9 Baso % (Auto) 0.6 Absolute Neuts (auto) 5.6 Absolute Lymphs (auto) 1.81 Nucleated RBC % 0 HCG, Quant 5957 H Radiography Diagnostic Testing: Clinical Impression(s) from Imaging Studies Obstetrics Ultrasound 03/03/23 21:08 IMPRESSION: Early intrauterine at 5 weeks and 5 days. No specific abnormality. Electronically Signed: Antelmo Diaz MD at 22:42 EDT , Discharge Plan Triage Chief Complaint: Vag Bld, Preg ED Midlevel Provider: Clari Burnham ED Provider: Emmanuel Corona Dx/Rx/DC Orders Clinical Impression: Threatened in first trimester Instructions: ED Possible Miscarriage ... Prescriptions: No Action multivitamin Tablet 1 tab PO DAILY Latuda 20 mg Tablet 120 mg PO QHS citalopram [Celexa] 20 mg Tablet 40 mg PO QHS dicyclomine 20 mg tablet 20 mg PO TID PRN (Reason: abdominal pain) Qty: 14 0RF ondansetron 4 mg tablet,disintegrating 4 mg PO Q6H PRN (Reason: nausea and vomiting) Qty: 12 0RF sulfamethoxazole-trimethoprim [sulfamethoxazole-trimethoprim] 800-160 mg tablet 1 tab PO BID Qty: 6 0RF lansoprazole [Prevacid] 30 mg capsule,delayed release(DR/EC) 30 mg PO DAILY Qty: 14 0RF Primary Care Provider: Magnolia Chen Referrals: Magnolia Chen MD [Primary Care Provider] - Roula Corona DO [Med Staff - Active Staff] - 2 Days Activity Restrictions/Additional Instructions: Follow-up in 2 days for repeat quantitative hCG level. Disposition Disposition: Home, Self Care
[2023-03-03] MEDS: 0.9% Normal Saline 1,000 ML 999 ML IV (21:25)
[2023-03-03 21:29] LABS: Absolute Lymphocyte Count 1.81 X10^3/uL (0.83-4.51); Absolute Neutrophil Count 5.6 X10^3/uL (2.0-7.7); Basophil# 0.05 X10^3/uL; Basophil% 0.6 % (0-1); Eosinophil# 0.16 X10^3/uL; Eosinophils% 1.9 % (0-5); Hematocrit 37.9 % (37-47); Hemoglobin 12.5 g/dL (12.0-15.0); Lymphocyte # 1.81 X10^3/ul (0.83-4.51); Mean Corpuscular Hgb 29.1 pg (27.0-32.0); Mean Corpuscular Volume 88.3 fL (81-99); Mean Platelet Vol. 10.2 fl (6.2-12.0); Monocyte# 0.62 X10^3/uL; Monocyte% 7.5 % (0-10); NRBC Flagged by Analyzer 0 % (0-5); Neutrophil # 5.57 X10^3/uL (2.7-7.7); Neutrophil % 67.8 % (47-70); Platelet Count 402 K/mm3 (150-450); RBC Distribution Width SD 45.1 fl (35.1-43.9); Red Blood Count 4.29 M/mm3 (4.2-5.4); White Blood Count 8.2 K/mm3 (4.4-11.0)
[2023-03-03 22:15] LABS: hCG Titer Quant., Serum 5957 mIU/mL (1-3)
[2023-03-03 22:47] VITALS: BP 126/70; PULSE 80; RESP 16; O2SAT 98
== END 2023-03-03 23:07 | disposition home or self-care (01) ==
PROVIDERS: Physician Assistant; Emergency Provider Emergency Medicine; PCP Internal Medicine; Visit Provider Emergency Medicine
DX: O20.0 Threatened abortion (principal); O26.891 Other specified pregnancy related conditions, first trimester; R10.2 Pelvic and perineal pain; Z3A.01 Less than 8 weeks gestation of pregnancy; J45.909 Unspecified asthma, uncomplicated; O99.511 Diseases of the respiratory system complicating pregnancy, first trimester; Z87.891 Personal history of nicotine dependence
CPT/HCPCS: 76817; 84702; 85025; 86900; 86901; 96360; 99283; J7030; A4216

== ENCOUNTER → 2023-03-06 | Outpatient (CLI) | payer MEDICAID, SELFPAY ==
[2023-03-06 18:31] LABS: hCG Titer Quant., Serum 10958 mIU/mL (1-3)
== END | disposition home or self-care (01) ==
LOC: WOBLAB 16:44
PROVIDERS: PCP Internal Medicine; Visit Provider Student in an Organized Health Care Education/Training Program
DX: O20.0 Threatened abortion (principal)
CPT/HCPCS: 36415; 84702

== ENCOUNTER → 2023-03-11 | Outpatient (CLI) | payer MEDICAID, SELFPAY ==
[2023-03-11 11:36] LABS: Absolute Lymphocyte Count 1.61 X10^3/uL (0.83-4.51); Absolute Neutrophil Count 6.4 X10^3/uL (2.0-7.7); Basophil# 0.05 X10^3/uL; Basophil% 0.6 % (0-1); Eosinophil# 0.13 X10^3/uL; Eosinophils% 1.5 % (0-5); Hematocrit 39.5 % (37-47); Hemoglobin 12.9 g/dL (12.0-15.0); Lymphocyte # 1.61 X10^3/ul (0.83-4.51); Lymphocyte % 18.5 % (19-41); Mean Corp Hgb Conc 32.7 g/dL (32-36); Mean Corpuscular Hgb 28.9 pg (27.0-32.0); Mean Corpuscular Volume 88.6 fL (81-99); Mean Platelet Vol. 10.5 fl (6.2-12.0); Monocyte# 0.49 X10^3/uL; Monocyte% 5.6 % (0-10); NRBC Flagged by Analyzer 0 % (0-5); Neutrophil # 6.37 X10^3/uL (2.7-7.7); Neutrophil % 73.5 % (47-70); Platelet Count 433 K/mm3 (150-450); RBC Distribution Width SD 45.1 fl (35.1-43.9); Red Blood Count 4.46 M/mm3 (4.2-5.4); White Blood Count 8.7 K/mm3 (4.4-11.0)
[2023-03-11 12:24] LABS: HIV - WCH Non-Reactive (Nonreactive); Hepatitis B Surface Antigen Non-Reactive (Nonreactive); Hepatitis C Antibody Non-Reactive (Nonreactive); Rubella IgG Reactive (Nonreactive); Syphilis Antibodies Non-reactive
[2023-03-12 14:42] LABS: V-Zoster IgG (Immunity) 692 index (Immune >165)
== END | disposition home or self-care (01) ==
LOC: WOBLAB 10:34
PROVIDERS: PCP Internal Medicine; Visit Provider Nurse Practitioner Women's Health
DX: Z34.81 Encounter for supervision of other normal pregnancy, first trimester (principal)
CPT/HCPCS: 36415; 85025; 86703; 86762; 86780; 86787; 86803; 87086; 87088; 87340

== ENCOUNTER 2023-04-03 11:40 | Emergency (ER) | payer MEDICAID, SELFPAY ==
[2023-04-03 11:41] VITALS: BP 150/83; PULSE 90; RESP 16; TEMP 36.6; O2SAT 98; BMI 40.6
[2023-04-03 11:56] LABS: Color, Urine Yellow (Yellow); Glucose, Dipstick Normal (Normal); Ketone-Dipstick 5 mg/dl (Negative); Leukocyte Esterase-Dipstick 500 /ul (Negative); Nitrite-Dipstick Negative (Negative); Occult Blood-Urine 25 /ul (Negative); Protein-Dipstick 30 mg/dl (Negative); Specific Gravity, Urine 1.025 (1.002-1.030); Urine Bilirubin Dipstick Negative (Negative); Urine Clarity Sl. Cloudy (Clear); Urine Urobilinogen Normal (Normal)
[2023-04-03 12:05] LABS: Bacteria 1+ /hpf (None Seen); Mucous, Urine 1+ /hpf (<or=2+); Red Blood Cells-Urine 0-5 SEEN /hpf (0-5); Squamous Epithelial Cells - UA 0-5 SEEN /hpf (5-10); White Blood Cells 25-50 SEEN /hpf (0-5)
--- NOTE | 2023-04-03 12:27 | EX.ED.DYSGE1 ---
HPI History of Present Illness Chief Complaint: Complaint Informant: patient Onset/Context/Timing Onset: Yesterday Context: Gradual Onset Timing: Continuous Quality: Sharp, burning Location: Suprapubic area Worsened by: Urination Relieved by: Nothing Narrative Narrative: Patient presents with pelvic pain and dysuria that has been getting worse over the past 2 days. Patient describes it as sharp and burning. Patient states it is over the suprapubic area. Patient states her burning is worse with urination. Patient states she is approximately 10 weeks . Patient denies any abnormal vaginal bleeding or discharge. Patient admits to some nausea and vomiting but states that is related to the . Patient does admit to some pain in her low back. Patient also admits to some urinary frequency. Patient denies any fevers or chills. [facility] Medical History Anxiety Asthma Bipolar disorder Chest pain Cholecystitis with cholelithiasis Depression Elective induction of labor planned Fatty liver Former smoker Gastric reflux Heartburn Injury of head and neck Marginal placenta previa Migraines PCOS (polycystic ovarian syndrome) Spontaneous vaginal delivery Wears glasses Home Medications lurasidone 20 mg tablet (Latuda) 120 mg PO QHS depression 11/20/21 [History Last Taken 03/04/22 22:00 40 mg] citalopram 20 mg tablet (Celexa) 40 mg PO QHS mood 09/23/22 [History Last Taken Unknown] multivitamin 1 tab PO DAILY 10/16/22 [History Last Taken Unknown] dicyclomine 20 mg tablet 20 mg PO TID PRN abdominal pain #14 tabs 10/21/22 [Rx Last Taken Unknown] ondansetron 4 mg disintegrating tablet 4 mg PO Q6H PRN nausea and vomiting #12 tabs 10/21/22 [Rx Last Taken Unknown] lansoprazole 30 mg capsule,delayed release (Prevacid) 30 mg PO DAILY #14 caps 11/08/22 [Rx Last Taken Unknown] sulfamethoxazole 800 mg-trimethoprim 160 mg tablet 1 tab PO BID #6 TABLETS 11/08/22 [Rx Last Taken Unknown] nitrofurantoin monohydrate/macrocrystals 100 mg capsule 100 mg PO Q12 #14 CAPSULES 04/03/23 [Rx Last Taken Unknown] Allergy/AdvReac Type Severity Reaction Status Date / Time aripiprazole Allergy Hives Verified 04/03/23 11:43 Family History Father Anxiety Depression Mental disorder Suicide attempt Grandfather Cancer lung Grandmother Myocardial infarction CVA (cerebral vascular accident) Surgical History History of cholecystectomy History of surgery Hx of tonsillectomy Social History household members: family housing: house current occupational status: employed 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 [employer] sexually active: Yes Smoking Status: Former smoker quit date: 12/02/19 pack-years: 4 Electronic Cigarette Use: not used alcohol intake: current alcohol intake frequency: holidays/special occasions only substance use type: does not use what type of physical activity do you participate in: walking frequency: 5-6 times per week seatbelt use: always do you feel safe at home: Yes ROS ROS ED Constitutional Constitutional ED: Denies chills or fever(s) Eyes Eyes: Denies blurry vision or change in vision ENT ENT ED: Denies rhinorrhea or sore throat Cardiovascular Cardiovascular: Denies chest pain or palpitations Respiratory/Chest Respiratory/Chest: Reports cough; Denies dyspnea Gastrointestinal Gastrointestinal: Reports abdominal pain, nausea and vomiting Genitourinary Genitourinary ED: Reports dysuria and urinary frequency; Denies hematuria Musculoskeletal Musculoskeletal: Reports back pain; Denies neck pain Integumentary Denies abscess or rash Neurologic Neurologic: Denies headache(s) or weakness Allergic/Immunologic Allergic/Immunologic ED: Denies mouth swelling or urticaria EXAM Physical Exam Const Vital Signs: 04/03/23 11:41 Temperature 97.8 F Temperature Source Temporal Pulse Rate 90 Respiratory Rate 16 Blood Pressure 150/83 H Blood Pressure Mean 105 Pulse Ox 98 Oxygen Delivery Method Room Air Positive well nourished, well developed and obese General Appearance ED: well developed Nutritional Appearance: obese HEENT Reports moist mucous membranes Neck supple and no JVD Resp normal respiratory effort and clear to auscultation bilaterally Cardio regular rate, regular rhythm and no murmurs GI normal to inspection, nondistended, normoactive bowel sounds Palpation: soft and tender suprapubic; Negative for guarding or rebound tenderness present Extremity normal to inspection General Extremety ED: Negative for edema or tenderness General Extremity: Negative for edema Neuro oriented x3, CN's II-XII intact bilaterally and no sensory deficits noted Sensorium / Orientation: alert Motor Exam: strength 5/5 throughout Psych mental status grossly normal Skin no rashes or lesions noted MDM MDM MDM Narrative Medical decision making narrative: Differential diagnosis includes urinary tract infection, dysuria, and vaginitis. Urinalysis will be obtained to assess for urinary tract infection. Lab Data Attestation: I reviewed the patient's lab results. Lab results narrative: Urinalysis was reviewed. There is a leukocyte esterase of 500 with 25-50 white blood cells and 1+ bacteria. Urine culture was ordered. Labs: Laboratory Results - last 24 hr 04/03/23 11:47 Urine Color Yellow Urine Clarity Sl. Cloudy Urine pH 6.0 Ur Specific [place] 1.025 Urine Protein 30 H Urine Glucose (UA) Normal Urine Ketones 5 H Urine Occult Blood 25 H Urine Nitrite Negative Urine Bilirubin Negative Urine Urobilinogen Normal Ur Leukocyte Esterase 500 H Urine RBC 0-5 SEEN Urine WBC 25-50 SEEN Ur Squamous Epith Cells 0-5 SEEN Urine Bacteria 1+ Urine Mucus 1+ Treatment and Re-Evaluation :: Patient was advised of her findings. Patient was advised that this is most likely urinary tract infection. Patient was given a prescription for Macrobid. Patient was given her first dose here. Patient was instructed to follow-up with her primary care physician and FIRE AND EXPLOSION INVESTIGATOR in 5 to 7 days. Patient understood and was agreeable with the plan. All questions were answered. Discharge Plan Triage Chief Complaint: Complaint ED Provider: Tex Estrada Dx/Rx/DC Orders Clinical Impression: Urinary tract infection, Instructions: ED Cystitis Female Adult, ED Established ... Prescriptions: New nitrofurantoin monohyd/m-cryst [nitrofurantoin monohyd/m-cryst] 100 mg capsule 100 mg PO Q12 Qty: 14 0RF No Action multivitamin Tablet 1 tab PO DAILY Latuda 20 mg Tablet 120 mg PO QHS citalopram [Celexa] 20 mg Tablet 40 mg PO QHS dicyclomine 20 mg tablet 20 mg PO TID PRN (Reason: abdominal pain) Qty: 14 0RF ondansetron 4 mg tablet,disintegrating 4 mg PO Q6H PRN (Reason: nausea and vomiting) Qty: 12 0RF sulfamethoxazole-trimethoprim [sulfamethoxazole-trimethoprim] 800-160 mg tablet 1 tab PO BID Qty: 6 0RF lansoprazole [Prevacid] 30 mg capsule,delayed release(DR/EC) 30 mg PO DAILY Qty: 14 0RF Primary Care Provider: Magnolia Chen Referrals: Magnolia Chen MD [Primary Care Provider] - 5-7 Days Disposition Disposition: Home, Self Care
[2023-04-03] MEDS: Nitrofurantoin Macrocrystals 100 MG Capsule PO (12:42)
== END 2023-04-03 12:44 | disposition home or self-care (01) ==
PROVIDERS: Emergency Provider Emergency Medicine; PCP Internal Medicine; Visit Provider Emergency Medicine
DX: O23.41 Unspecified infection of urinary tract in pregnancy, first trimester (principal); O21.9 Vomiting of pregnancy, unspecified; R10.2 Pelvic and perineal pain; O99.511 Diseases of the respiratory system complicating pregnancy, first trimester; J45.909 Unspecified asthma, uncomplicated; O99.211 Obesity complicating pregnancy, first trimester; Z79.899 Other long term (current) drug therapy; Z3A.10 10 weeks gestation of pregnancy; Z87.891 Personal history of nicotine dependence
CPT/HCPCS: 81001; 87077; 87086; 87088; 87186; 99283

== ENCOUNTER 2023-05-04 14:59 | Emergency (ER) | payer MEDICAID, SELFPAY ==
[2023-05-04 15:00] VITALS: BP 114/54; PULSE 109; RESP 18; TEMP 37; O2SAT 97; BMI 39.2
--- NOTE | 2023-05-04 15:19 | CT_ITS ---
INDICATION: blunt abd trauma. EXAMINATION: CTA abdomen and pelvis - TECHNIQUE: Routine abdominal CT angiogram protocol was performed with IV contrast. MIP images provided. A radiation dose optimization technique was used for this scan. IV Contrast dosage and agent: 100 cc Radiation dose DLP 1409 mGy / cm. COMPARISON: None. FINDINGS: Lung bases: Normal. Liver: Normal. No bile ductal dilatation. Gallbladder: Cholecystectomy clips. Spleen: Normal. Adrenal gland: Normal. Kidneys: Normal. No hydronephrosis or stone formation. Pancreas:Normal. Bowel gas pattern: Nonobstructive. Appendix: Normal. Free air: None. Free fluid: None. Pelvis: Pelvic organs: Patient demonstrates enlargement of the uterus consistent with intrauterine and incompletely evaluated by ultrasound assessment. Bone survey: No aggressive bony lesions. No acute fractures. Adenopathy: No significant pathologic adenopathy detected. Other: None. Vascular: Normal vascular anatomy, No evidence of acute abdominal process or focal organ injury. Positive with incomplete evaluation of the fetus on CT exam. More definitive assessment may be obtained with ultrasound. Electronically Signed: Javon Madrigal DO at 16:24 EDT , CT/CTA Abd/Pelvis W/WO Contrast IMPRESSION: undefined
--- NOTE | 2023-05-04 15:24 | CT_ITS ---
STUDY: CT LUMBAR SPINE WITHOUT CONTRAST REASON FOR EXAM: Female, 27 years old. blunt trauma and pain. Please 3-D recon. RADIATION DOSAGE (If Supplied By Facility): CTDIvol = ( 26.28 ) mGy, DLP = ( 1409.69 ) mGycm TECHNIQUE: The patient was scanned in a multi detector CT scanner. High resolution transaxial imaging was performed. Images were obtained from to . Sagittal and coronal images were reconstructed. Individualized dose optimization techniques were used for this CT. COMPARISON: None FINDINGS: Normal lumbar lordosis. There is no substantial scoliosis. Normal vertebrae of the lumbar spine. L1-2: Normal endplates. Normal disc height and morphology. Normal bilateral facet joints. Normal central canal and bilateral lateral recesses. Normal bilateral intervertebral neural foramina. L2-3: Normal endplates. Normal disc height and morphology. Normal bilateral facet joints. Normal central canal and bilateral lateral recesses. Normal bilateral intervertebral neural foramina. L3-4: Normal endplates. Normal disc height and morphology. Normal bilateral facet joints. Normal central canal and bilateral lateral recesses. Normal bilateral intervertebral neural foramina. L4-5: Normal endplates. Normal disc height and morphology. Normal bilateral facet joints. Normal central canal and bilateral lateral recesses. Normal bilateral intervertebral neural foramina. L5-S1: Normal endplates. Normal disc height and morphology. Normal bilateral facet joints. Normal central canal and bilateral lateral recesses. Normal bilateral intervertebral neural foramina. Normal visualized paraspinous soft tissue structures. Intrauterine is demonstrated. CT/Spine Lumbar without Contrast IMPRESSION: No evidence of compression deformity or malalignment. Electronically Signed: Javon Madrigal DO at 16:25 EDT ,
--- NOTE | 2023-05-04 15:25 | EDS_ITS ---
HPI HPI - Fall History of Present Illness Chief Complaint: Fall Detail of Chief Complaint: Tripped and fell down 7 steps. Informant: patient Occured/Mechanism Occurred: Today and Hours Mechanism/Context: Yes trip Usually ambulates: Without assistance Pain/Injury Pain Location: head and abdomen Quality of Pain: Dull and Aching Current Severity: Mild Maximum Severity: Mild Associated Symptoms Associated Symptoms: Negative for Parasthesias, Weakness, Loss of function, Inability to ambulate, Loss of consciousness or Amnesia Narrative Narrative: 27-year-old female history of asthma and currently 14 weeks . Patient's blood type is O+. Today tripped going down steps fell down about 7 steps. She rolled hit her head her lower back and lower abdomen pelvis. Her due date is 10/30/2023. She has had no complications this . States she is nauseated. Denies any LOC. She is on no blood thinners. Prior similar symptoms: No Recent Illness/Hospitalization: No PFSH PFSH Medical History Anxiety Asthma Bipolar disorder Chest pain Cholecystitis with cholelithiasis Depression Elective induction of labor planned Fatty liver Former smoker Gastric reflux Heartburn Injury of head and neck Marginal placenta previa Migraines PCOS (polycystic ovarian syndrome) Spontaneous vaginal delivery Wears glasses Home Medications lurasidone 20 mg tablet (Latuda) 120 mg PO QHS depression 11/20/21 [History Last Taken 03/04/22 22:00 40 mg] citalopram 20 mg tablet (Celexa) 40 mg PO QHS mood 09/23/22 [History Last Taken Unknown] ondansetron 4 mg disintegrating tablet 4 mg PO Q6H PRN nausea and vomiting #12 tabs 10/21/22 [Rx Last Taken Unknown] [id number] 1 mg tablet 1 tab PO DAILY 05/04/23 [History Last Taken Unknown] Allergy/AdvReac Type Severity Reaction Status Date / Time aripiprazole Allergy Hives Verified 05/04/23 15:02 Family History Father Anxiety Depression Mental disorder Suicide attempt Grandfather Cancer lung Grandmother Myocardial infarction CVA (cerebral vascular accident) Surgical History History of cholecystectomy History of surgery Hx of tonsillectomy Social History household members: family housing: house current occupational status: employed current occupation: [employer] sexually active: Yes Smoking Status: Former smoker quit date: 12/02/19 pack-years: 4 Electronic Cigarette Use: not used alcohol intake: current alcohol intake frequency: holidays/special occasions only substance use type: does not use what type of physical activity do you participate in: walking frequency: 5-6 times per week seatbelt use: always do you feel safe at home: Yes ROS ROS ED ROS Narrative Lower abdominal pelvic pain. Low back pain. Closed head injury. Mild nausea. No recent illness. Review of Systems ROS Unobtainable: Denies due to encephalopathy Constitutional Constitutional ED: Denies chills or fever(s) Eyes Eyes: Denies blurry vision ENT ENT ED: Denies ear pain Cardiovascular Cardiovascular: Denies chest pain Respiratory/Chest Respiratory/Chest: Denies cough or dyspnea Gastrointestinal Gastrointestinal: Reports abdominal pain and nausea; Denies constipation, diarrhea, melena or vomiting Genitourinary Genitourinary ED: Denies dysuria or hematuria Musculoskeletal Musculoskeletal: Denies arthralgias Integumentary Denies abscess Neurologic Neurologic: Denies headache(s) Psychiatric Psychiatric: Denies anxiety Endocrine Endocrinology: Denies polydipsia Hematologic/Lymphatic Hematologic/Lymphatic: Denies easy bleeding or easy bruising Allergic/Immunologic Allergic/Immunologic ED: Denies mouth swelling or tongue swelling EXAM Physical Exam Narrative Exam Narrative: 27-year-old female no acute distress. Sitting upright in bed. Significant other at bedside. H EENT exam mild contusion posterior scalp. No sign of hematoma. No laceration. Pupils round reactive light. No facial trauma. C- spine nontender. Trachea midline. Left lower lumbar tenderness no ecchymosis or bruising. Thoracic spine and ribs are nontender. Also paralumbar tenderness. No bruising. Pelvic girdle intact. Abdomen soft, nondistended. Normal bowel sounds no peritoneal signs. No bruising. Lungs are clear. Heart regular rhythm. Moving all 4 extremities. Nontender no deformity. 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 Normal dorsi plantarflexion. Normal range of motion. Neurologically she is awake and alert with no focal motor deficits. GCS of 15. Const Vital Signs: 05/04/23 15:00 05/04/23 15:06 Temperature 98.6 F Temperature Source Temporal Pulse Rate 109 H Respiratory Rate 18 Respiratory Effort Normal Non-Labored Respiratory Depth Normal Respiratory Pattern Normal Blood Pressure 114/54 L Blood Pressure Mean 74 Pulse Ox 97 Oxygen Delivery Method Room Air Positive well nourished and well developed; Negative for cachectic, contractures or unkempt General Appearance ED: well developed and NAD; Negative for unkempt, cachectic or contractures Nutritional Appearance: Negative for cachectic HEENT Reports normocephalic trauma and contusion; Negative for atraumatic, hematoma or tenderness Eyes PERRL and EOMs intact bilaterally General Eye ED: Negative for pale conjunctiva or scleral icterus Neck full ROM, no lymphadenopathy and supple Cardio regular rate, regular rhythm, S1 normal heart sound, S2 normal heart sound and no murmurs Rate: Negative for bradycardia or tachycardic Rhythm: Negative for abnormal rhythm Bruits: Negative for other GI non-distended and no masses; Negative for non-tender GI Narrative: Lower abdominal tenderness. Inspection: Negative for abdominal distention Auscultation: normoactive bowel sounds Palpation: soft; Negative for guarding or rebound tenderness present Back/Spine no CVA tenderness General Back: Negative for CVA tenderness Cervical Spine: Negative for cervical spine tenderness Thoracic Spine / Upper Back: Negative for ROM limited Lumbar Spine / Lower Back: lumbar spinal tenderness and paraspinal muscle tenderness Extremity Extremity Narrative: Nontender. No deformity. Full range of motion. Normal strength. Normal sensation. Neuro oriented x3, CN's II-XII intact bilaterally, moves all extremities, no focal motor deficits and no sensory deficits noted [place] Coma Scale: document GCS findings Spontaneous Obeys Commands Oriented 15 Sensorium / Orientation: alert, oriented to person, oriented to place, oriented to time and orientation impaired; Negative for confused, lethargic or stuporous Motor Exam: strength 5/5 throughout Psych mental status grossly normal and thought process normal Appearance: Negative for unkempt Attitude: No agitated Mood & Affect: Negative for depressed, anxious or tearful Skin Lesions: no lesions Rashes: no rashes Trauma: Negative for abrasion MDM MDM MDM Narrative Medical decision making narrative: 27-year-old female currently 14 weeks . Blunt abdominal trauma. Blood type a positive. CT abdomen pelvis which I discussed with patient and her significant other. Old 3D reconstruct the lumbar spine due to having pain not waiting for nausea. Tylenol for pain. Repeat exam patient doing well at 4:30 PM. Feeling better. Abdomen mildly tender suprapubic no peritoneal signs. Doing well. Feeling better. I did call the sales route driver helper on-call for patient's WHEEL SETTER comfortable with her being discharged with outpatient follow-up. Patient is comfortable with the plan. Tylenol for pain. Return if feeling worse or starts having vaginal bleeding. History & Record Review Discussion w/independent historian: Patient and Family Radiography Diagnostic Testing: Clinical Impression(s) from Imaging Studies Abdomen/Pelvis CTA 05/04/23 15:19 IMPRESSION: undefined Lumbar Spine CT 05/04/23 15:24 IMPRESSION: No evidence of compression deformity or malalignment. Electronically Signed: Javon Madrigal DO at 16:25 EDT Reading Location ID and State: [facility] / [place] , Service support , Discharge Plan Triage Chief Complaint: Fall ED Provider: Mustapha Serrato Dx/Rx/DC Orders Clinical Impression: Fall, Abdominal contusion, Closed head injury, Second trimester Instructions: ED Soft Tissue Contusion, ED Head Injury (Adult) Prescriptions: No Action lurasidone [Latuda] 20 mg Tablet 120 mg PO QHS citalopram [Celexa] 20 mg Tablet 40 mg PO QHS ondansetron 4 mg tablet,disintegrating 4 mg PO Q6H PRN (Reason: nausea and vomiting) Qty: 12 0RF 1 mg Tablet 1 tab PO DAILY Primary Care Provider: Magnolia Chen Referrals: Magnolia Chen MD [Primary Care Provider] - Radha Mccarthy MD [Med Staff - Active Staff] - As Needed Activity Restrictions/Additional Instructions: Tylenol for pain. Ice to your scalp. Follow-up with your WHEEL SETTER as needed and scheduled. Return or follow-up with them if you develop any vaginal bleeding. The CAT scan of your abdomen and lumbar spine look good. You have good heart tones at 155. I spoke to the sales route driver helper on-call for your WHEEL SETTER. Disposition Disposition: Home, Self Care
[2023-05-04] MEDS: Acetaminophen 500 MG Tablet 1000 MG PO (15:28)
== END 2023-05-04 16:49 | disposition home or self-care (01) ==
PROVIDERS: Emergency Provider Emergency Medicine; PCP Internal Medicine; Visit Provider Emergency Medicine
DX: O9A.212 Injury, poisoning and certain other consequences of external causes complicating pregnancy, second trimester (principal); S09.90XA Unspecified injury of head, initial encounter; S30.1XXA Contusion of abdominal wall, initial encounter; O99.891 Other specified diseases and conditions complicating pregnancy; M54.50 Low back pain, unspecified; W10.9XXA Fall (on) (from) unspecified stairs and steps, initial encounter; Z79.899 Other long term (current) drug therapy; Z87.891 Personal history of nicotine dependence; Z3A.14 14 weeks gestation of pregnancy
CPT/HCPCS: 72131; 74174; 99284; Q9967; A4216

== ENCOUNTER 2023-06-03 11:26 | Emergency (ER) | payer MEDICAID, SELFPAY ==
[2023-06-03 11:27] VITALS: BP 130/77; PULSE 109; RESP 16; TEMP 36.6; O2SAT 97; BMI 39.2
--- NOTE | 2023-06-03 11:59 | ED.VIS.GI ---
HPI HPI - GI History of Present Illness Chief Complaint: Nausea/Vomiting Detail of Chief Complaint: Suprapubic abdominal pain. 19 weeks . Informant: patient Abdominal Pain/Flank Pain Onset: Today and Yesterday Context: Gradual Onset Timing: Continuous Location: - (Suprapubic pelvic pain.) Current Severity: Mild Maximum Severity: Mild Worsened by: Nothing Relieved by: Nothing Nausea/Vomiting/Emesis GI Symptom: Positive for Nausea and Vomiting Onset: Yesterday Severity: Moderate Diarrhea/Melena/Hematochezia GI Symptom: Negative for Diarrhea, Melena or Hematochezia Associated Symptoms Associated Symptoms: Negative for Dysuria, Frequency or Hematuria Narrative Narrative: 27-year-old female currently almost 19 weeks . Due date is 10/30/2023. She sees Dr. Radha Mccarthy for SALES SUPPORT REPRESENTATIVE. Patient is G4, P1 Ab2 with those being miscarriages. Prior cholecystectomy. States that yesterday started having nausea vomiting and suprapubic abdominal discomfort. Denies any dysuria or hematuria. No fever. Normal bowel movements. No vaginal bleeding. Prior similar symptoms: Yes Recent Illness/Hospitalization: No PFSH PFSH Medical History Anxiety Asthma Bipolar disorder Chest pain Cholecystitis with cholelithiasis Depression Elective induction of labor planned Fatty liver Former smoker Gastric reflux Heartburn Injury of head and neck Marginal placenta previa Migraines PCOS (polycystic ovarian syndrome) Spontaneous vaginal delivery Wears glasses Home Medications lurasidone 20 mg tablet (Latuda) 120 mg PO QHS depression 11/20/21 [History Last Taken 03/04/22 22:00 40 mg] citalopram 20 mg tablet (Celexa) 40 mg PO QHS mood 09/23/22 [History Last Taken Unknown] ondansetron 4 mg disintegrating tablet 4 mg PO Q6H PRN nausea and vomiting #12 tabs 10/21/22 [Rx Last Taken Unknown] [id number] 1 mg tablet 1 tab PO DAILY 05/04/23 [History Last Taken Unknown] ondansetron 4 mg disintegrating tablet 4 mg PO Q6H PRN nausea and vomiting #10 tabs 06/03/23 [Rx Last Taken Unknown] Allergy/AdvReac Type Severity Reaction Status Date / Time aripiprazole Allergy Hives Verified 06/03/23 11:28 Family History Father Anxiety Depression Mental disorder Suicide attempt Grandfather Cancer lung Grandmother Myocardial infarction CVA (cerebral vascular accident) Surgical History History of cholecystectomy History of surgery Hx of tonsillectomy Social History household members: family housing: house current occupational status: employed current occupation: [employer] sexually active: Yes Smoking Status: Former smoker quit date: 12/02/19 pack-years: 4 Electronic Cigarette Use: not used alcohol intake: current alcohol intake frequency: holidays/special occasions only substance use type: does not use what type of physical activity do you participate in: walking frequency: 5-6 times per week seatbelt use: always do you feel safe at home: Yes ROS ROS ED ROS Narrative Cervical abdominal pain. Nausea vomiting. Review of Systems ROS Unobtainable: Denies due to encephalopathy Constitutional Constitutional ED: Denies chills or fever(s) ENT ENT ED: Denies ear pain Cardiovascular Cardiovascular: Denies chest pain Respiratory/Chest Respiratory/Chest: Denies cough Gastrointestinal Gastrointestinal: Reports abdominal pain, nausea and vomiting; Denies constipation, diarrhea or melena Genitourinary Genitourinary ED: Denies dysuria or hematuria Musculoskeletal Musculoskeletal: Denies arthralgias or back pain Integumentary Denies abscess Neurologic Neurologic: Denies headache(s) Psychiatric Psychiatric: Denies anxiety Endocrine Endocrinology: Denies polydipsia Hematologic/Lymphatic Hematologic/Lymphatic: Denies easy bleeding or easy bruising Allergic/Immunologic Allergic/Immunologic ED: Denies mouth swelling or tongue swelling EXAM Physical Exam Narrative Exam Narrative: 27-year-old female no acute distress. Vital signs stable afebrile. HEENT exam unremarkable. Moist mucous membranes. Neck nontender no lymphadenopathy. Lungs clear to auscultation bilaterally. Heart tachycardic rate of 105 no murmur. Abdomen soft nondistended normal bowel sounds no peritoneal signs. Both upper quadrant nontender. No McBurney's point tenderness. Mild suprapubic tenderness. No distention. Moving all 4 extremities. Nontender no edema. Back nontender. Neurologically awake alert. No focal motor deficits. Const Vital Signs: 06/03/23 11:27 Temperature 97.9 F Temperature Source Temporal Pulse Rate 109 H Respiratory Rate 16 Blood Pressure 130/77 H Blood Pressure Mean 94 Pulse Ox 97 Oxygen Delivery Method Room Air Positive well nourished and well developed; Negative for cachectic, contractures or unkempt General Appearance ED: well developed and NAD; Negative for unkempt, cachectic, contractures or pallor Nutritional Appearance: Negative for cachectic HEENT Reports moist mucous membranes normocephalic and atraumatic; Negative for trauma or tenderness Eyes PERRL and EOMs intact bilaterally General Eye ED: Negative for pale conjunctiva or scleral icterus Neck no lymphadenopathy, supple and no JVD General: Negative for tenderness Carotids: Negative for other Lymph Lymphatic: Negative for other Resp normal respiratory effort and clear to auscultation bilaterally Effort and Inspection: Negative for respiratory distress Auscultation: Negative for rales, rhonchi or wheezes Cardio regular rhythm, S1 normal heart sound, S2 normal heart sound and no murmurs; Negative for regular rate Rate: tachycardic; Negative for bradycardia Rhythm: Negative for abnormal rhythm GI non-distended and no masses; Negative for non-tender GI Narrative: Mild suprapubic tenderness only. Inspection: Negative for abdominal distention Auscultation: normoactive bowel sounds Palpation: soft and tender; Negative for guarding, rigid, hepatomegaly, splenomegaly, hernia, mass, pulsatile mass or rebound tenderness present Back/Spine no CVA tenderness General Back: Negative for CVA tenderness Cervical Spine: Negative for cervical spine tenderness Thoracic Spine / Upper Back: Negative for thoracic spinal tenderness Lumbar Spine / Lower Back: Negative for lumbar spinal tenderness Coccyx: Negative for other Extremity full ROM General Extremety ED: Negative for edema or tenderness General Extremity: Negative for edema Neuro CN's II-XII intact bilaterally, moves all extremities and no sensory deficits noted Sensorium / Orientation: alert, oriented to person, oriented to place and oriented to time; Negative for orientation impaired, confused, lethargic or stuporous Motor Exam: strength 5/5 throughout Psych mental status grossly normal and thought process normal Appearance: Negative for unkempt or other Attitude: No agitated Mood & Affect: Negative for depressed, anxious or tearful Skin no wounds General Skin Exam: Negative for jaundice or pallor Lesions: no lesions Rashes: no rashes Trauma: Negative for abrasion Nails: Negative for discolored MDM MDM MDM Narrative Medical decision making narrative: 27-year-old female almost 19 weeks with suprapubic abdominal pain nausea vomiting. Abdominal exam is benign. She will be treated a liter normal saline. Zofran for nausea. Check urinalysis and chemistries. Repeat exam patient is doing well at 1:17 PM. Abdomen benign and nontender. Her nausea is resolved. Were awaiting test results. Repeat exam at 2:16 PM patient doing well. Abdomen benign. We went over her test results. Patient's abdomen is completely nontender. Her nausea is resolved. She will be discharged to home with outpatient follow-up with her SALES SUPPORT REPRESENTATIVE. A prescription will be sent to her pharmacy, [facility], for Zofran. History & Record Review Discussion w/independent historian: Patient Additional record(s) reviewed:: Prior inpatient record, Prior outpatient record, Prior ED visit and Prior labs Lab Data Attestation: I reviewed the patient's lab results. Lab results narrative: Chemistry unremarkable gap of 4 normal BUN and creatinine. Glucose 88. Urinalysis is contaminated. She has 10-25 white cells but 25-50 epithelial cells. No bacteria and no nitrites. This will not be treated as a UTI because I think it is contaminated. Labs: Laboratory Results - last 24 hr 06/03/23 06/03/23 12:55 13:40 Sodium 140 Potassium 3.6 Chloride 111 H Carbon Dioxide 25.0 Anion Gap 4 L BUN 5 L Creatinine 0.61 Estim Creat Clear Calc 142.22 Est GFR (MDRD) Af Amer 154 Est GFR (MDRD) Non-Af 127 BUN/Creatinine Ratio 8.3 L Glucose 88 Calcium 8.6 Urine Color Yellow Urine Clarity Cloudy Urine pH 7.0 Ur Specific Lee 1.010 Urine Protein 15 H Urine Glucose (UA) Normal Urine Ketones Negative Urine Occult Blood 10 H Urine Nitrite Negative Urine Bilirubin Negative Urine Urobilinogen Normal Ur Leukocyte Esterase 500 H Urine RBC 0 SEEN Urine WBC 10-25 SEEN Ur Squamous Epith Cells 25-50 SEEN Urine Bacteria 0 SEEN Urine Mucus 0 SEEN Discharge Plan Triage Chief Complaint: Nausea/Vomiting ED Provider: Mustapha Serrato Dx/Rx/DC Orders Clinical Impression: Second trimester , Nausea & vomiting, Abdominal pain Instructions: ED Vomiting (Adult) Prescriptions: New ondansetron 4 mg tablet,disintegrating 4 mg PO Q6H PRN (Reason: nausea and vomiting) Qty: 10 0RF No Action lurasidone [Latuda] 20 mg Tablet 120 mg PO QHS citalopram [Celexa] 20 mg Tablet 40 mg PO QHS ondansetron 4 mg tablet,disintegrating 4 mg PO Q6H PRN (Reason: nausea and vomiting) Qty: 12 0RF 1 mg Tablet 1 tab PO DAILY Primary Care Provider: Magnolia Chen Referrals: Magnolia Chen MD [Primary Care Provider] - Radha Mccarthy MD [Med Staff - Active Staff] - Keep Rodri appointment Activity Restrictions/Additional Instructions: Plenty of fluids and rest. Increase your diet slowly as tolerated. Zofran as needed for nausea. Follow-up with your SALES SUPPORT REPRESENTATIVE with your neck scheduled appointment. Follow-up sooner if not doing well. Return if unable to keep fluids down. Disposition Disposition: Home, Self Care
[2023-06-03] MEDS: Ondansetron 4 MG/2 ML Vial IV (12:31)
[2023-06-03] MEDS: 0.9% Normal Saline 1,000 ML 1000 ML IV (12:31)
[2023-06-03 13:17] LABS: Anion Gap 4 (5-15); BUN 5 mg/dL (7-18); BUN/Creat Ratio 8.3 RATIO (10-20); Calcium,Total 8.6 mg/dL (8.5-10.1); Chloride 111 mmol/L (98-107); Creatinine, Serum 0.61 mg/dL (0.55-1.02); EST Glomerular Filtration Rate 127 mL/min (>60); Est Glom Filt Rate - Afr Amer 154 mL/min (>60); Estimated Creatinine Clearance 142.22 ml/min; Glucose 88 mg/dL (74-106); Potassium 3.6 mmol/L (3.5-5.1); Sodium Level 140 mmol/L (136-145)
[2023-06-03 13:51] LABS: Bacteria 0 SEEN /hpf (None Seen); Mucous, Urine 0 SEEN /hpf (<or=2+); Red Blood Cells-Urine 0 SEEN /hpf (0-5)
[2023-06-03 14:01] LABS: Color, Urine Yellow (Yellow); Glucose, Dipstick Normal (Normal); Ketone-Dipstick Negative (Negative); Leukocyte Esterase-Dipstick 500 /ul (Negative); Nitrite-Dipstick Negative (Negative); Occult Blood-Urine 10 /ul (Negative); Protein-Dipstick 15 mg/dl (Negative); Urine Bilirubin Dipstick Negative (Negative); Urine Clarity Cloudy (Clear); Urine Urobilinogen Normal (Normal)
[2023-06-03 14:08] LABS: Squamous Epithelial Cells - UA 25-50 SEEN /hpf (5-10); White Blood Cells 10-25 SEEN /hpf (0-5)
[2023-06-03 14:36] VITALS: BP 118/76; PULSE 74; RESP 14; TEMP 36.6; O2SAT 99
== END 2023-06-03 14:37 | disposition home or self-care (01) ==
PROVIDERS: Emergency Provider Emergency Medicine; PCP Internal Medicine; Visit Provider Emergency Medicine
DX: O26.892 Other specified pregnancy related conditions, second trimester (principal); Z87.891 Personal history of nicotine dependence; R10.9 Unspecified abdominal pain; Z90.49 Acquired absence of other specified parts of digestive tract; O99.342 Other mental disorders complicating pregnancy, second trimester; F32.A Depression, unspecified; Z3A.18 18 weeks gestation of pregnancy; Z79.899 Other long term (current) drug therapy; O21.9 Vomiting of pregnancy, unspecified
CPT/HCPCS: 80048; 81001; 96361; 96374; 99282; J7030; A4216; J2405

== ENCOUNTER 2023-07-21 02:10 | Outpatient (CLI) | payer MEDICAID, SELFPAY ==
[2023-07-21 02:20] VITALS: BMI 40.0
[2023-07-21 02:25] VITALS: TEMP 36.7
[2023-07-21 02:33] VITALS: BP 129/64; PULSE 80
--- NOTE | 2023-07-21 07:21 | OB.TRI.HP_ITS ---
HPI - General General Date of Service: 07/21/23 HPI Narrative LOW PRETTY, is a 27 F @ 25 .4 weeks c/o vaginal bleeding and cramping . reports bleeding for last 1.5 days and cramping worse today. Pt being treated for UTI, and BV at current time. pt reports good FM. PFSH PFSH Medical History Anxiety Asthma Bipolar disorder Chest pain Cholecystitis with cholelithiasis Depression Elective induction of labor planned Fatty liver Former smoker Gastric reflux Heartburn Injury of head and neck Marginal placenta previa Migraines PCOS (polycystic ovarian syndrome) Spontaneous vaginal delivery Wears glasses Home Medications [id number] 1 mg tablet 1 tab PO DAILY 05/04/23 [History Last Taken Unknown] ondansetron 4 mg disintegrating tablet 4 mg PO Q6H PRN nausea and vomiting #10 tabs 06/03/23 [Rx Last Taken Unknown] Allergy/AdvReac Type Severity Reaction Status Date / Time aripiprazole Allergy Hives Verified 07/21/23 02:37 Family History Father Anxiety Depression Mental disorder Suicide attempt Grandfather Cancer lung Grandmother Myocardial infarction CVA (cerebral vascular accident) Surgical History History of cholecystectomy History of surgery Hx of tonsillectomy Social History household members: family housing: house current occupational status: employed current occupation: [employer] sexually active: Yes Smoking Status: Former smoker quit date: 12/02/19 pack-years: 4 Electronic Cigarette Use: not used alcohol intake: current alcohol intake frequency: holidays/special occasions only substance use type: does not use what type of physical activity do you participate in: walking frequency: 5-6 times per week seatbelt use: always do you feel safe at home: Yes History 1 Elective abortions Hx Para 1 Spontaneous abortions Hx # Term Pregnancies Ectopic pregnancies Hx # Pregnancies Multiple births # of living children 1 Physical Exam Narrative Per nursing: Cervix Closed/Thick/ High. No Blood on glove. NST FHR Rate Baby A Baseline: NST not completed- due to 25 weeks- FHR 130s. FHR Rate Baby B Uterine Activity:: No CTX. Assessment & Plan (1) Cramping affecting , antepartum: (2) 25 weeks gestation of : PLAN: Plan @ 25.4 weeks - cramping and bleeding 1) no bleeding noted on exam today- well being established- dc home follow up as scheduled 07/23 2) Continue PO abx
== END 2023-07-21 03:30 | disposition home or self-care (01) ==
LOC: WPOUT 02:18 → WP 02:19
PROVIDERS: PCP Internal Medicine; Referring Provider Obstetrics & Gynecology; Visit Provider Obstetrics & Gynecology
DX: O99.891 Other specified diseases and conditions complicating pregnancy (principal); Z3A.25 25 weeks gestation of pregnancy; J45.909 Unspecified asthma, uncomplicated; R25.2 Cramp and spasm; O99.511 Diseases of the respiratory system complicating pregnancy, first trimester
CPT/HCPCS: 59050

== ENCOUNTER 2023-08-17 18:25 | Outpatient (CLI) | payer MEDICAID, SELFPAY ==
[2023-08-17] VITALS (8 sets, daily range): BP systolic 117–138; BP diastolic 58–69; PULSE 68–105; TEMP 36.6–36.8; O2SAT 97; BMI 38.9
[2023-08-17] MEDS: Metoclopramide 10 MG Tablet PO (19:37)
[2023-08-17 20:00] LABS: Hemoglobin 11.6 g/dL (12.0-15.0); Mean Corp Hgb Conc 33.1 g/dL (32-36); Mean Corpuscular Hgb 29.3 pg (27.0-32.0); Mean Corpuscular Volume 88.4 fL (81-99); Mean Platelet Vol. 10.4 fl (6.2-12.0); Platelet Count 362 K/mm3 (150-450); RBC Distribution Width CV 14.6 % (11.6-14.6); Red Blood Count 3.96 M/mm3 (4.2-5.4); White Blood Count 10.4 K/mm3 (4.4-11.0)
[2023-08-17 20:10] LABS: AST(SGOT) 11 U/L (15-37); Alanine Aminotransfer ALT/SGPT 29 U/L (13-56); Creatinine, Serum 0.63 mg/dL (0.55-1.02); EST Glomerular Filtration Rate 121 mL/min (>60); Est Glom Filt Rate - Afr Amer 147 mL/min (>60); Uric Acid 4.5 mg/dL (2.6-6.0)
[2023-08-17 20:11] LABS: Protein:Creat Ratio 240 mg/g CRE (0-200)
[2023-08-17 20:35] LABS: Color, Urine Yellow (Yellow); Glucose, Dipstick Normal (Normal); Ketone-Dipstick Negative (Negative); Leukocyte Esterase-Dipstick 500 /ul (Negative); Nitrite-Dipstick Positive (Negative); Occult Blood-Urine 10 /ul (Negative); Protein-Dipstick 30 mg/dl (Negative); Specific Gravity, Urine 1.015 (1.002-1.030); Urine Bilirubin Dipstick Negative (Negative); Urine Clarity Clear (Clear); Urine Urobilinogen Normal (Normal); Urine pH 6.5 (5.0 - 8.0)
[2023-08-17 21:04] LABS: White Blood Cells 10-25 SEEN /hpf (0-5)
[2023-08-17 21:05] LABS: Bacteria 2+ /hpf (None Seen); Mucous, Urine 1+ /hpf (<or=2+); Red Blood Cells-Urine 0-5 SEEN /hpf (0-5); Squamous Epithelial Cells - UA 0-5 SEEN /hpf (5-10)
[2023-08-18 01:04] VITALS: PULSE 92; TEMP 37.1; O2SAT 98
[2023-08-18 01:05] VITALS: BP 107/59; PULSE 88
--- NOTE | 2023-08-18 09:41 | OB.TRI.NOTE ---
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 She also had a headache for 2 days. She also complained of some upper abdominal pain. She had good movement. No regular contractions. No vaginal bleeding or leaking of fluid. Patient states she feels less swollen now and her headache is minimal after Reglan. Maternal Data Information Final CLAUDIO: 08/30/23 Gestational age: 29 3/7 PFSH PFS Medical History Anxiety Asthma Bipolar disorder Chest pain Cholecystitis with cholelithiasis Depression Elective induction of labor planned Fatty liver Former smoker Gastric reflux Heartburn Injury of head and neck Marginal placenta previa Migraines PCOS (polycystic ovarian syndrome) Spontaneous vaginal delivery Wears glasses Home Medications [id number] 1 mg tablet 1 tab PO DAILY 05/04/23 [History Last Taken 08/17/23] Allergy/AdvReac Type Severity Reaction Status Date / Time aripiprazole Allergy Hives Verified 08/17/23 19:37 Family History Father Anxiety Depression Mental disorder Suicide attempt Grandfather Cancer lung Grandmother Myocardial infarction CVA (cerebral vascular accident) Surgical History History of cholecystectomy History of surgery Hx of tonsillectomy Social History household members: family housing: house current occupational status: employed current occupation: [employer] sexually active: Yes Smoking Status: Former smoker quit date: 12/02/19 pack-years: 4 Electronic Cigarette Use: not used alcohol intake: current alcohol intake frequency: holidays/special occasions only substance use type: does not use what type of physical activity do you participate in: walking frequency: 5-6 times per week seatbelt use: always do you feel safe at home: Yes History 1 Elective abortions Hx Para 1 Spontaneous abortions Hx # Term Pregnancies Ectopic pregnancies Hx # Pregnancies Multiple births # of living children 1 Physical Exam Narrative Awake, alert, no acute distress lying in bed comfortably watching TV. Abdomen soft, nontender, gravid, no rebound or guarding negative Ferrer sign Extremities trace edema, 2+ DTRs no clonus NST FHR Rate Baby A Baseline: 130 Variability:: Moderate Accelerations:: 15 x 15 Decelerations:: None NST Reactive:: Yes FHR Category:: Category I Uterine Activity:: no regular ctxs Assessment & Plan (1) 29 weeks gestation of : PLAN: Plan 31-year-old high risk multigravida complaining of headache, significantly improved after rest and Reglan. Urine is suspicious for infection. Patient is not complaining of discrete UTI symptoms. Will send for urine culture. Encouraged patient to push fluids as urine is very ro-colored. Instructed patient to avoid greasy fatty foods and sodium and soda. Follow-up in the office as scheduled or as needed. No evidence of preeclampsia at this time. Patient is comfortable with this plan.
== END 2023-08-17 22:00 | disposition home or self-care (01) ==
LOC: WPOUT 18:33 → WP 18:37
PROVIDERS: PCP Internal Medicine; Visit Provider Obstetrics & Gynecology
DX: O99.893 Other specified diseases and conditions complicating puerperium (principal); R51.9 Headache, unspecified; J45.909 Unspecified asthma, uncomplicated; O99.513 Diseases of the respiratory system complicating pregnancy, third trimester; Z3A.29 29 weeks gestation of pregnancy
CPT/HCPCS: 59025; 59050; 81001; 82565; 82570; 84156; 84450; 84460; 84550; 85027; 87077; 87086; 87088; 87186; 99221; G0378

== ENCOUNTER 2023-09-22 09:50 | Outpatient (CLI) | payer MEDICAID, SELFPAY ==
[2023-09-22 10:13] VITALS: BP 125/63; PULSE 85; TEMP 37.2
[2023-09-22 10:15] VITALS: BMI 39.4
[2023-09-22 10:58] LABS: ROM Internal Control Test YES-OK TO RESULT pt. (Internal QC); ROM Patient Test Negative (Negative); Record Kit Lot#, ROM+ K1409
--- NOTE | 2023-09-22 11:47 | OB.TRI.HP_ITS ---
HPI - General HPI Narrative LOW PRETTY, is a 27 F who presents to triage with feeling a pop and leaking fluid. Reports this morning having increased cough and felt a popping sensation. She reports continues to leak fluid. Positive movement. Maternal Data Information CLAUDIO Calculator Estimated Delivery Date Method Current WG Current Estimate 10/30/23 Manual 34w 4d PFSH PFSH Medical History Anxiety Asthma Bipolar disorder Chest pain Cholecystitis with cholelithiasis Depression Elective induction of labor planned Fatty liver Former smoker Gastric reflux Heartburn Injury of head and neck Marginal placenta previa Migraines PCOS (polycystic ovarian syndrome) Spontaneous vaginal delivery Wears glasses Home Medications [id number] 1 mg tablet 1 tab PO DAILY 05/04/23 [History Last Taken 08/17/23] nitrofurantoin monohydrate/macrocrystals 100 mg capsule (Macrobid) 100 mg PO DAILY 09/22/23 [History Last Taken Unknown] Allergy/AdvReac Type Severity Reaction Status Date / Time aripiprazole Allergy Hives Verified 09/22/23 10:36 Family History Father Anxiety Depression Mental disorder Suicide attempt Grandfather Cancer lung Grandmother Myocardial infarction CVA (cerebral vascular accident) Surgical History History of cholecystectomy History of surgery Hx of tonsillectomy Social History household members: family housing: house current occupational status: employed current occupation: [employer] sexually active: Yes Smoking Status: Former smoker quit date: 12/02/19 pack-years: 4 Electronic Cigarette Use: not used alcohol intake: current alcohol intake frequency: holidays/special occasions only substance use type: does not use what type of physical activity do you participate in: walking frequency: 5-6 times per week seatbelt use: always do you feel safe at home: Yes History 1 Elective abortions Hx Para 1 Spontaneous abortions Hx # Term Pregnancies Ectopic pregnancies Hx # Pregnancies Multiple births # of living children 1 ROS Eyes Eyes: Denies blurry vision Cardiovascular Cardiovascular: Reports none; Denies chest pain at rest, chest pain with activity or dizziness Respiratory/Chest Respiratory/Chest: Denies cough or dyspnea Gastrointestinal Gastrointestinal: Reports none and other; Denies diarrhea or vomiting Genitourinary Genitourinary: Denies dysuria Musculoskeletal Musculoskeletal: Reports none Integumentary Integumentary: Reports none; Denies rash Neurologic Neurologic: Denies dizziness, headache(s) or other visual disturbances Psychiatric Psychiatric: Reports none Physical Exam Const alert and no apparent distress General Appearance: cooperative Orientation / Consciousness: awake Exam Limitations: no limitations HEENT normocephalic Eyes General Eye: normal appearance of both eyes Neck full ROM Chest inspection of chest normal Resp normal respiratory effort and normal air movement Effort and Inspection: symmetric chest movement Auscultation: clear to auscultation bilaterally Cardio regular rate GI soft to palpation, non-tender and non-distended Inspection: and other Back/Spine normal ROM Extremity full ROM, normal capillary refill and no calf tenderness Skin no rashes or lesions noted Neuro oriented x3 and CN's II-XII intact bilaterally Psych mental status grossly normal NST FHR Rate Baby A Baseline: 130 Variability:: Moderate Accelerations:: 15 x 15 Decelerations:: None NST Reactive:: Yes FHR Category:: Category I Uterine Activity:: None Assessment & Plan (1) 34 weeks gestation of : (2) No leakage of amniotic fluid into vagina: PLAN: Plan ROM PLUS- negative NST reactive for gestational age No contractions palpated or viewed Reassurance provided D/C home with follow up in office Dr. Ovalle notified
== END 2023-09-22 11:10 | disposition home or self-care (01) ==
LOC: WPOUT 09:55 → WP 09:56
PROVIDERS: PCP Internal Medicine; Visit Provider Advanced Practice Midwife
DX: O99.891 Other specified diseases and conditions complicating pregnancy (principal); O99.513 Diseases of the respiratory system complicating pregnancy, third trimester; R05.9 Cough, unspecified; J45.909 Unspecified asthma, uncomplicated; Z87.891 Personal history of nicotine dependence; Z3A.34 34 weeks gestation of pregnancy
CPT/HCPCS: 59025; 59050; 84112; 99221; G0378

== ENCOUNTER 2023-10-10 04:28 | Outpatient (CLI) | payer MEDICAID, SELFPAY ==
[2023-10-10 04:34] VITALS: BMI 40.6
[2023-10-10 04:43] VITALS: BP 144/80; PULSE 96; O2SAT 89
[2023-10-10 04:44] VITALS: PULSE 94; O2SAT 97
[2023-10-10 04:46] VITALS: BP 129/76; PULSE 93; TEMP 36.4; O2SAT 96
[2023-10-10 05:30] LABS: ROM Internal Control Test YES-OK TO RESULT pt. (Internal QC); ROM Patient Test Negative (Negative); Record Kit Lot#, ROM+ K1409
--- NOTE | 2023-10-10 07:03 | OB.TRI.HP_ITS ---
HPI - General HPI Narrative LOW PRETTY, is a 27 F at 37.1 weeks gestation who presents to triage with leaking fluid. Stated had a large gush of fluid at home and soaked through a pad. Feeling occasional contractions and positive movement. Maternal Data Information CLAUDIO Calculator Estimated Delivery Date Method Current WG Current Estimate 10/30/23 Manual 37w 1d PFSH PFSH Medical History (Updated 10/10/23 @ 07:09 by Bettie Blum CNM) Anxiety Asthma Bipolar disorder Chest pain Cholecystitis with cholelithiasis Depression Elective induction of labor planned Fatty liver Former smoker Gastric reflux Heartburn Injury of head and neck Liver disease Marginal placenta previa Migraines MRSA infection PCOS (polycystic ovarian syndrome) depression Spontaneous vaginal delivery Thyroid disorder Trauma Wears glasses Home Medications [id number] 1 mg tablet 1 tab PO DAILY 05/04/23 [History Last Taken 10/09/23] nitrofurantoin monohydrate/macrocrystals 100 mg capsule (Macrobid) 100 mg PO DAILY 09/22/23 [History Last Taken 10/09/23] albuterol 90 mcg/actuation aerosol inhaler mcg inhalation 10/10/23 [History Last Taken Unknown] Allergy/AdvReac Type Severity Reaction Status Date / Time aripiprazole Allergy Hives Verified 10/10/23 04:48 Family History Father Anxiety Depression Mental disorder Suicide attempt Grandfather Cancer lung Grandmother Myocardial infarction CVA (cerebral vascular accident) Surgical History History of cholecystectomy History of surgery Hx of tonsillectomy Social History household members: family housing: house current occupational status: employed current occupation: [employer] sexually active: Yes Smoking Status: Former smoker quit date: 12/02/19 pack-years: 4 Electronic Cigarette Use: not used alcohol intake: current alcohol intake frequency: holidays/special occasions only substance use type: does not use what type of physical activity do you participate in: walking frequency: 5-6 times per week seatbelt use: always do you feel safe at home: Yes History 1 Elective abortions Hx Para 1 Spontaneous abortions Hx # Term Pregnancies Ectopic pregnancies Hx # Pregnancies Multiple births # of living children 1 ROS Eyes Eyes: Denies blurry vision Cardiovascular Cardiovascular: Reports none; Denies chest pain at rest, chest pain with activity or dizziness Respiratory/Chest Respiratory/Chest: Denies cough or dyspnea Gastrointestinal Gastrointestinal: Reports none and other; Denies diarrhea or vomiting Genitourinary Genitourinary: Denies dysuria Musculoskeletal Musculoskeletal: Reports none Integumentary Integumentary: Reports none; Denies rash Neurologic Neurologic: Denies dizziness, headache(s) or other visual disturbances Psychiatric Psychiatric: Reports none Physical Exam Const alert and no apparent distress General Appearance: cooperative Orientation / Consciousness: awake Exam Limitations: no limitations HEENT normocephalic Eyes General Eye: normal appearance of both eyes Neck full ROM Chest inspection of chest normal Resp normal respiratory effort and normal air movement Effort and Inspection: symmetric chest movement Auscultation: clear to auscultation bilaterally Cardio regular rate GI soft to palpation, non-tender and non-distended Inspection: and other Back/Spine normal ROM Extremity full ROM, normal capillary refill and no calf tenderness Skin no rashes or lesions noted Neuro oriented x3 and CN's II-XII intact bilaterally Psych mental status grossly normal Assessment & Plan (1) No leakage of amniotic fluid into vagina: (2) Cramping affecting , antepartum: (3) 37 weeks gestation of : (4) Asthma: (5) Bipolar disorder: COMMENT: ON MED PLAN: Plan NST reactive ROM plus- negative No further leaking of fluid on pad SSE- No pooling. Large amount of yellow discharge present in vaginal vault CE- 4/80/-3 - Able to palpate bag of water D/C home with follow up in office this week Dr. Ovalle aware of plan of care
== END 2023-10-10 07:28 | disposition home or self-care (01) ==
LOC: WPOUT 04:32 → WP 04:32
PROVIDERS: PCP Internal Medicine; Referring Provider Advanced Practice Midwife; Visit Provider Advanced Practice Midwife
DX: O99.891 Other specified diseases and conditions complicating pregnancy (principal); F31.9 Bipolar disorder, unspecified; O47.1 False labor at or after 37 completed weeks of gestation; J45.909 Unspecified asthma, uncomplicated; Z87.891 Personal history of nicotine dependence; R25.2 Cramp and spasm; Z3A.37 37 weeks gestation of pregnancy; O99.343 Other mental disorders complicating pregnancy, third trimester; Z79.899 Other long term (current) drug therapy; O99.513 Diseases of the respiratory system complicating pregnancy, third trimester
CPT/HCPCS: 59025; 59050; 84112; 99221; G0378

== ENCOUNTER 2023-10-15 11:25 | Inpatient (IN) | payer MEDICAID, SELFPAY ==
[2023-10-15] VITALS (38 sets, daily range): BP systolic 120–146; BP diastolic 58–87; PULSE 75–107; TEMP 35.9–37.2; O2SAT 94–100; BMI 40.2
[2023-10-15 11:24] LABS: ROM Internal Control Test YES-OK TO RESULT pt. (Internal QC)
[2023-10-15 11:26] LABS: ROM Patient Test POSITIVE (Negative); Record Kit Lot#, ROM+ K1409
[2023-10-15] MEDS: Lactated Ringers 1,000 ML 50 ML IV (12:25)
[2023-10-15] MEDS: Penicillin G Pot 5,000,000 UNITS in 0.9% Normal Saline (100mL MB+) 100 ML 150 UNITS IV (12:28)
[2023-10-15] MEDS: Oxytocin 15 Units/NS 250ml 15 UNITS/250 ML IV.SOLN 2 UNITS IV (12:30)
[2023-10-15 12:40] LABS: Absolute Lymphocyte Count 1.12 X10^3/uL (0.83-4.51); Absolute Neutrophil Count 12.1 X10^3/uL (2.0-7.7); Basophil# 0.05 X10^3/uL; Basophil% 0.4 % (0-1); Eosinophil# 0.06 X10^3/uL; Eosinophils% 0.4 % (0-5); Hematocrit 35.5 % (37-47); Hemoglobin 11.4 g/dL (12.0-15.0); Lymphocyte # 1.12 X10^3/ul (0.83-4.51); Lymphocyte % 7.9 % (19-41); Mean Corp Hgb Conc 32.1 g/dL (32-36); Mean Corpuscular Hgb 28.1 pg (27.0-32.0); Mean Corpuscular Volume 87.7 fL (81-99); Mean Platelet Vol. 10.2 fl (6.2-12.0); Monocyte# 0.74 X10^3/uL; Monocyte% 5.2 % (0-10); NRBC Flagged by Analyzer 0 % (0-5); Neutrophil % 85.5 % (47-70); Platelet Count 360 K/mm3 (150-450); RBC Distribution Width CV 15.4 % (11.6-14.6); RBC Distribution Width SD 49.3 fl (35.1-43.9); Red Blood Count 4.05 M/mm3 (4.2-5.4); White Blood Count 14.2 K/mm3 (4.4-11.0)
[2023-10-15 13:36] LABS: Syphilis Antibodies Non-reactive
--- NOTE | 2023-10-15 14:37 | HP.PCM.OB_ITS ---
HPI - General General Date of Admission: 10/15/23 Chief Complaint: Rupture of Membranes HPI Narrative LOW PRETTY, is a 27 F who presents at 37w6d with CLAUDIO: 10/30/23. Presents with SROM and positive ROM+. No vaginal bleeding. Maternal Data Information CLAUDIO Calculator Estimated Delivery Date Method Current WG Current Estimate 10/30/23 Manual 37w 6d PFSH PFSH Medical History (Updated 10/15/23 @ 17:20 by Nighat Maloney CNM) Anxiety Asthma Bipolar disorder Chest pain Cholecystitis with cholelithiasis Depression Elective induction of labor planned Fatty liver Former smoker Gastric reflux Heartburn Injury of head and neck Liver disease Marginal placenta previa Migraines MRSA infection PCOS (polycystic ovarian syndrome) depression Spontaneous vaginal delivery Thyroid disorder Trauma Wears glasses Home Medications [id number] 1 mg tablet 1 tab PO DAILY 05/04/23 [History Last Taken 10/15/23] nitrofurantoin monohydrate/macrocrystals 100 mg capsule (Macrobid) 100 mg PO DAILY frequent UTI's 09/22/23 [History Last Taken 10/15/23] albuterol 90 mcg/actuation aerosol inhaler mcg inhalation PRN asthma 10/10/23 [History Last Taken Unknown] Allergy/AdvReac Type Severity Reaction Status Date / Time aripiprazole Allergy Hives Verified 10/15/23 11:43 Family History Father Anxiety Depression Mental disorder Suicide attempt Grandfather Cancer lung Grandmother Myocardial infarction CVA (cerebral vascular accident) Surgical History History of cholecystectomy History of surgery Hx of tonsillectomy Social History household members: family housing: house current occupational status: employed current occupation: [employer] sexually active: Yes Smoking Status: Former smoker quit date: 12/02/19 pack-years: 4 Electronic Cigarette Use: not used alcohol intake: current alcohol intake frequency: holidays/special occasions only substance use type: does not use what type of physical activity do you participate in: walking frequency: 5-6 times per week seatbelt use: always do you feel safe at home: Yes History 1 Elective abortions Hx Para 1 Spontaneous abortions Hx # Term Pregnancies Ectopic pregnancies Hx # Pregnancies Multiple births # of living children 1 NST FHR Rate Baby A Baseline: 130 Variability:: Moderate Accelerations:: 15 x 15 Decelerations:: None FHR Category:: Category I Uterine Activity:: Every 1.5-3 minutes, lasting 50-70 sec moderate strength Vital Signs Vital Signs Vital Signs: 10/15/23 10:51 10/15/23 10:51 10/15/23 13:05 Temperature Temperature Source Pulse Rate 107 H Blood Pressure 120/65 133/70 H BP Systolic 120 133 BP Diastolic 65 70 Pulse Ox 10/15/23 13:05 10/15/23 13:06 10/15/23 13:06 Temperature Temperature Source Temporal Pulse Rate 87 Blood Pressure BP Systolic BP Diastolic Pulse Ox 98 10/15/23 13:06 10/15/23 14:08 10/15/23 14:09 Temperature 97.5 F L Temperature Source Temporal Pulse Rate Blood Pressure 127/68 H BP Systolic 127 BP Diastolic 68 Pulse Ox 10/15/23 14:09 10/15/23 14:08 10/15/23 14:08 Temperature 97.1 F L Temperature Source Pulse Rate 88 Blood Pressure BP Systolic BP Diastolic Pulse Ox 98 Weight Weight: 264 lb 12.403 oz Body Mass Index (BMI) 40.2 Physical Exam Const alert and oriented x3 General Appearance: cooperative Orientation / Consciousness: awake, oriented to person, oriented to place and oriented to time Exam Limitations: no limitations HEENT normocephalic Head and Scalp: normal to inspection, normocephalic and atraumatic Face and Sinus: normal facial exam Eyes General Eye: normal appearance of both eyes Neck full ROM Chest Chest: symmetrical chest wall rise Resp normal respiratory effort and normal air movement Auscultation: clear to auscultation bilaterally Cardio regular rate, regular rhythm, S1 normal heart sound, S2 normal heart sound, no murmurs, no rub, no gallops and no clicks GI normal to inspection, nondistended, normoactive bowel sounds and non-tender appearance of the vagina normal Bladder / Kidney Exam: no CVA tenderness Back/Spine normal ROM Extremity normal to inspection and full ROM Skin no rashes or lesions noted Neuro oriented x3, CN's II-XII intact bilaterally and moves all extremities Sensorium / Orientation: awake, alert and oriented to person Labs Labs Labs: Blood Type O POSITIVE Antibody Screen NEGATIVE Hct 35.5 % (37-47) L Hgb 11.4 g/dL (12.0-15.0) L Obstetrics Ultrasound Syphilis Total Ab Non-reactive VZV IgG Antibody 692 index (Immune >165) Rubella IgG Antibody Reactive (Nonreactive) Hep Bs Antigen Non-Reactive (Nonreactive) Hepatitis C Antibody Non-Reactive (Nonreactive) Chlamydia DNA (KOLE) Negative (Negative) N.gonorrhoeae DNA (KOLE) Negative (Negative) HIV 1&2 Antibody Non-Reactive (Nonreactive) Glucose 1 Hr 50 gm 122 mg/dL (70-140) Miscellaneous Test Assessment & Plan (1) 37 weeks gestation of : (2) SROM (spontaneous rupture of membranes): (3) UTI in : (4) Obesity: (5) Short interval between pregnancies affecting in third trimester, antepartum: (6) History of depression: (7) Positive GBS test: PLAN: Plan 1. Admit to labor and delivery 2. Continuous EFM 3. Oral hydration and IV fluids as needed. 4. Admission labs. 5. Position of comfort and positional changes 6. Epidural as desired. 7. Augment with Pitocin. 8. PCN 5grams then 2.5grams every 4 hrs for GBS prophylaxis 9 . Anticipate . 11. Notified Dr. Kenney of patient status.
[2023-10-15] MEDS: LACTATED RINGERS 500 ML 999 ML IV (15:36)
[2023-10-15] MEDS: fentaNYL-bupivacaine (epidural) 100 ML BAG EPIDURAL (16:29)
[2023-10-15] MEDS: Penicillin G 3,000,000 Units 50 ML 100 UNITS IV (16:31)
[2023-10-15] MEDS: Oxytocin 15 Units/NS 250ml 15 UNITS/250 ML IV.SOLN 83 UNITS IV (20:13)
--- NOTE | 2023-10-15 20:21 | EX.PCM.OBRPT ---
Assessment & Plan (1) Vaginal delivery: (2) Lactating mother: Maternal Data Information CLAUDIO Calculator Estimated Delivery Date Method Current WG Current Estimate 10/30/23 Manual 37w 6d Vaginal Delivery Maternal Presentation Maternal Presentation: Active Labor and Spontaneous Rupture of Membranes Type of Induction: Pitocin (augmentation) Operative Information Date of Procedure: 10/15/23 Pre-Operative Diagnosis: SROM Post-Operative Diagnosis: Surgery / Procedure Performed: Spontaneous Vaginal Delivery Type of Anesthesia: Epidural Estimated Blood Loss: 150 ml Time of Delivery: 20:11 Findings Description of Procedure: Progressed to complete with urge to push. Epidural for pain management. of viable female infant over intact perineum. APGARS 8 , 9 respectively. Infant head delivered with body immediately forthcoming. CAN x1, loose. Placed on maternal abdomen, strong cry. Mouth and nares suctioned for secretions. Pitocin started for active 3rd stage management. Cord doubly clamped and cut by FOB after pulsations ceased, delayed cord clamping. Placenta with marginal cord insertion delivered intact via Rodriguez, 3 vessel cord intact. Perineum inspected and is intact. Fundus firm and hemostasis achieved. EBL 150. Mom and baby stable, planning to . Family bonding well. Dr. Kenney notified of delivery. Presentation: Vertex and LULY Amniotic Membrane Rupture Type: Spontaneous Amniotic Fluid Description: Clear Placental Delivery Description: Spontaneous Placenta Disposition: [facility] Cord Vessel Description: 3 Vessels Cord Entanglement: Around neck x 1, loose Nuchal Cord Compression: Without compression Infant A Gender: Female (1 minute): 8 (5 minute): 9 Delayed Cord Clamping: Yes Post Vaginal Delivery Medications Given After Delivery: IV Pitocin Episiotomy Description: None Laceration: None Complication Complications: None Admit VTE Documentation VTE Present on Admission: No
[2023-10-15] MEDS: Ondansetron 4 MG/2 ML Vial IV (20:27)
[2023-10-16 00:17] VITALS: BP 115/64; PULSE 83; RESP 16; TEMP 36.8; O2SAT 97
[2023-10-16 04:46] VITALS: BP 107/59; PULSE 80; RESP 16; TEMP 36.1
[2023-10-16] MEDS: Ibuprofen 600 MG Tablet PO ×2 (04:58→13:15)
[2023-10-16 05:17] LABS: Absolute Lymphocyte Count 1.69 X10^3/uL (0.83-4.51); Absolute Neutrophil Count 12.3 X10^3/uL (2.0-7.7); Basophil# 0.03 X10^3/uL; Basophil% 0.2 % (0-1); Eosinophil# 0.03 X10^3/uL; Eosinophils% 0.2 % (0-5); Hematocrit 30.5 % (37-47); Hemoglobin 9.6 g/dL (12.0-15.0); Lymphocyte # 1.69 X10^3/ul (0.83-4.51); Lymphocyte % 11.2 % (19-41); Mean Corp Hgb Conc 31.5 g/dL (32-36); Mean Corpuscular Hgb 27.7 pg (27.0-32.0); Mean Corpuscular Volume 88.2 fL (81-99); Mean Platelet Vol. 10.1 fl (6.2-12.0); Monocyte# 0.98 X10^3/uL; Monocyte% 6.5 % (0-10); NRBC Flagged by Analyzer 0 % (0-5); Neutrophil # 12.25 X10^3/uL (2.7-7.7); Neutrophil % 81.4 % (47-70); Platelet Count 304 K/mm3 (150-450); RBC Distribution Width CV 15.4 % (11.6-14.6); RBC Distribution Width SD 49.1 fl (35.1-43.9); Red Blood Count 3.46 M/mm3 (4.2-5.4); White Blood Count 15.1 K/mm3 (4.4-11.0)
--- NOTE | 2023-10-16 08:22 | PCM.PN.OB ---
Subjective Subjective Patient seen at bedside. Ambulating and voiding without difficulty. Breast feeding with minimum support. Denies any headache, dizziness, SOB, or CP. Desires discharge home tomorrow. Objective Data Objective Data Vital Signs: Vital Signs Temp Pulse Resp BP Pulse Ox O2 Del Method 97 F L 80 16 107/59 L 97 Room Air 10/16/23 04:46 10/16/23 04:46 10/16/23 04:46 10/16/23 04:46 10/16/23 00:17 10/16/23 04:46 Oxygen Delivery Method Room Air Weight: 264 lb 12.403 oz Body Mass Index (BMI) 40.2 Intake & Output: Intake and Output for Last 24 Hours 10/14/23 10/15/23 10/16/23 23:59 23:59 23:59 Intake Total 1436.66 / 1436.66 Output Total 750 / 750 Balance 686.66 / 686.66 Lab / Micro Data 10/16/23 03:40 Labs: Laboratory Results - last 24 hr 10/15/23 10:50: Vag Amniotic Fld Detect POSITIVE H 10/15/23 12:25: WBC 14.2 H, RBC 4.05 L, Hgb 11.4 L, Hct 35.5 L, MCV 87.7, MCH 28.1, MCHC 32.1, RDW Std Deviation 49.3 H, RDW Coeff of Leonor 15.4 H, Plt Count 360, MPV 10.2, Immature Gran % (Auto) 0.600, Neut % (Auto) 85.5 H, Lymph % (Auto) 7.9 L, Billings % (Auto) 5.2, Eos % (Auto) 0.4, Baso % (Auto) 0.4, Absolute Neuts (auto) 12.1 H, Absolute Lymphs (auto) 1.12, Nucleated RBC % 0, Syphilis Total Ab Non-reactive, Blood Type O POSITIVE, Antibody Screen NEGATIVE 10/16/23 03:40: WBC 15.1 H, RBC 3.46 L, Hgb 9.6 L, Hct 30.5 L, MCV 88.2, MCH 27.7, MCHC 31.5 L, RDW Std Deviation 49.1 H, RDW Coeff of Leonor 15.4 H, Plt Count 304, MPV 10.1, Immature Gran % (Auto) 0.500, Neut % (Auto) 81.4 H, Lymph % (Auto) 11.2 L, Bill[place] % (Auto) 6.5, Eos % (Auto) 0.2, Baso % (Auto) 0.2, Absolute Neuts (auto) 12.3 H, Absolute Lymphs (auto) 1.69, Nucleated RBC % 0 ROS Eyes Eyes: Denies blurry vision, change in vision or spots in vision ENT HEENT: Denies dizziness or headache(s) Cardiovascular Cardiovascular: Denies abdominal pain, chest pain or dyspnea Respiratory/Chest Respiratory/Chest: Denies cough, dyspnea, shortness of breath at rest or shortness of breath with exertion Gastrointestinal Gastrointestinal: Denies abdominal pain, diarrhea or vomiting Genitourinary Genitourinary: Denies change in urinary stream, difficulty urinating or dysuria Musculoskeletal Musculoskeletal: Reports none Integumentary Integumentary: Denies rash Neurologic Neurologic: Denies dizziness, headache(s), memory loss or weakness Physical Exam Const alert and no apparent distress General Appearance: cooperative and comfortable Exam Limitations: no limitations HEENT normocephalic Eyes General Eye: normal appearance of both eyes Neck full ROM General: normal visual inspection Chest Chest: symmetrical chest wall rise Resp normal respiratory effort and normal air movement Effort and Inspection: symmetric chest movement Auscultation: clear to auscultation bilaterally Cardio regular rate and regular rhythm GI normal to inspection, nondistended, normoactive bowel sounds Back/Spine normal ROM Extremity full ROM and no calf tenderness General Extremity: normal exam except as noted Skin no rashes or lesions noted Neuro CN's II-XII intact bilaterally Psych mental status grossly normal Assessment & Plan (1) Lactating mother: (2) Vaginal delivery: (3) Positive GBS test: (4) History of depression: (5) Obesity: PLAN: Plan PPD 1 - Intact Routine care Pain control support Anticipate discharge home tomorrow
[2023-10-16 10:01] VITALS: BP 115/51; PULSE 71; RESP 16; TEMP 36.5
[2023-10-16 13:00] VITALS: BP 122/76; PULSE 86; RESP 14; TEMP 36.6
[2023-10-16 20:12] VITALS: BP 113/67; PULSE 84; RESP 18; TEMP 36.7
[2023-10-16] MEDS: Acetaminophen 500 MG Tablet 1000 MG PO (21:49)
[2023-10-17 01:25] VITALS: BP 117/61; PULSE 87; RESP 16; TEMP 36.4
--- NOTE | 2023-10-17 07:14 | PCM.DC.SUM ---
Providers Date of Admission: 10/15/23 Primary Care Physician: Dr. Magnolia Chen MD Reason For Visit: VAG Diagnosis Discharge Diagnosis (1) Lactating mother: Status: Acute Code(s): Z39.1 - Encounter for care and examination of lactating mother (2) Vaginal delivery: Status: Acute Code(s): O80 - Encounter for full-term uncomplicated delivery (3) Positive GBS test: Status: Acute Code(s): B95.1 - Streptococcus, group B, as the cause of diseases classified elsewhere (4) History of depression: Status: Acute Code(s): Z87.59 - Personal history of other complications of , childbirth and the puerperium; Z86.59 - Personal history of other mental and behavioral disorders (5) Obesity: Status: Acute Code(s): E66.9 - Obesity, unspecified Plan PPD 2 - Intact Routine care Pain control support D/C home today with follow up in office Medications at Discharge Home Medications [id number] 1 mg tablet 1 tab PO DAILY 05/04/23 nitrofurantoin monohydrate/macrocrystals 100 mg capsule (Macrobid) 100 mg PO DAILY frequent UTI's 09/22/23 albuterol 90 mcg/actuation aerosol inhaler mcg inhalation PRN asthma 10/10/23 acetaminophen 500 mg tablet 1,000 mg (2 x 500 mg) PO Q6H PRN PRN Pain 1-10 Or Fever #0 tabs 10/17/23 ibuprofen 600 mg tablet 600 mg PO Q6H PRN PRN Pain Score 1-3 #0 tabs 10/17/23 Hospital Course Operations None Procedures None Summary of Care Provided Minutes Spent on Discharge: 15 Hospital Course: Patient had . Hospital course was uneventful. Physical Exam Narrative Patient seen at bedside. Denies any pain. Ambulating and voiding without difficulty. Lochia decreased. Desires discharge home today. Const alert and no apparent distress General Appearance: cooperative and comfortable Exam Limitations: no limitations HEENT normocephalic Eyes General Eye: normal appearance of both eyes Neck full ROM General: normal visual inspection Chest Chest: symmetrical chest wall rise Resp normal respiratory effort and normal air movement Effort and Inspection: symmetric chest movement Auscultation: clear to auscultation bilaterally Cardio regular rate and regular rhythm GI normal to inspection, nondistended, normoactive bowel sounds Back/Spine normal ROM Extremity full ROM and no calf tenderness General Extremity: normal exam except as noted Skin no rashes or lesions noted Neuro CN's II-XII intact bilaterally Psych mental status grossly normal Weight / BMI Weight Weight: 264 lb 12.403 oz Body Mass Index (BMI) 40.2 ABG / Lab / Microbiology Data 10/16/23 03:40 D/C Instructions Discharge Diet: No restrictions May resume sexual activity in: 6-8 weeks Weight Bearing Status: Weight bearing as tolerated Call your doctor if you observe: Fever of 101 or Higher, Inability to urinate, Using more than 1 pad per hour, Shortness of breath, Chest pain, Calf discomfort and Uncontrolled pain Please Follow Up With: Bettie Blum CNM When: 2 weeks virtual visit/ 6 weeks in office Meaningful Use Info Meaningful Use Diagnoses (Choose all that apply): None applicable Discharge Plan Admission Admit Date/Time: 10/15/23 11:25 Primary Reason for Your Visit: Labor and Delivery Attending Provider: Nighat Maloney Primary Care Provider: Magnolia Chen Discharge Orders/Prescriptions Prescriptions: New acetaminophen 500 mg Tablet 1,000 mg PO Q6H PRN PRN (Reason: Pain 1-10 Or Fever) Qty: 0 0RF ibuprofen 600 mg Tablet 600 mg PO Q6H PRN PRN (Reason: Pain Score 1-3) Qty: 0 0RF Continued [id number] 1 mg Tablet 1 tab PO DAILY nitrofurantoin monohyd/m-cryst [Macrobid] 100 mg capsule 100 mg PO DAILY albuterol 90 mcg/actuation aerosol inhalation PRN (Reason: asthma) Referrals / Follow Up: Magnolia Chen MD [Primary Care Provider] - Disposition Disposition (needs filled in before D/C Order can be placed): Home, Self Care
[2023-10-17] MEDS: Ibuprofen 600 MG Tablet PO (08:06)
[2023-10-17] MEDS: Acetaminophen 500 MG Tablet 1000 MG PO (08:06)
[2023-10-17 09:02] VITALS: BP 116/57; PULSE 70; RESP 16; TEMP 36.6; O2SAT 96
[2023-10-17 13:51] VITALS: BP 118/79; PULSE 77; RESP 16; TEMP 36.6; O2SAT 98
== END 2023-10-17 14:15 | disposition home or self-care (01) | DRG 560 ==
LOC: WPOUT 11:30 → WP 11:30
PROVIDERS: Admitting Provider Advanced Practice Midwife; PCP Internal Medicine; Referring Provider Advanced Practice Midwife; Visit Provider Advanced Practice Midwife
DX: O99.824 Streptococcus B carrier state complicating childbirth (principal); Z37.0 Single live birth; O43.193 Other malformation of placenta, third trimester; O99.214 Obesity complicating childbirth; Z3A.37 37 weeks gestation of pregnancy; Z87.891 Personal history of nicotine dependence
CPT/HCPCS: 59025; 59050; 84112; 85025; 86780; 86850; 86900; 86901; 99221; J7120; G0378; J2405

== ENCOUNTER 2024-11-30 16:35 | Emergency (ER) | payer MEDICAID, SELFPAY ==
[2024-11-30 16:36] VITALS: BP 141/78; PULSE 88; RESP 16; TEMP 37; O2SAT 100; BMI 41.6
[2024-11-30 18:57] VITALS: BP 113/71; PULSE 85; RESP 18; O2SAT 98
[2024-11-30 18:59] LABS: Red Blood Cells-Urine 0 SEEN /hpf (0-5)
[2024-11-30 19:02] LABS: Absolute Lymphocyte Count 2.51 X10^3/uL (0.83-4.51); Absolute Neutrophil Count 6.9 X10^3/uL (2.0-7.7); Basophil# 0.06 X10^3/uL; Basophil% 0.6 % (0-1); Eosinophil# 0.18 X10^3/uL; Eosinophils% 1.7 % (0-5); Hematocrit 40.5 % (37-47); Hemoglobin 12.7 g/dL (12.0-15.0); Lymphocyte # 2.51 X10^3/ul (0.83-4.51); Lymphocyte % 23.9 % (19-41); Mean Corp Hgb Conc 31.4 g/dL (32-36); Mean Corpuscular Hgb 25.2 pg (27.0-32.0); Mean Corpuscular Volume 80.4 fL (81-99); Mean Platelet Vol. 9.7 fl (6.2-12.0); Monocyte# 0.81 X10^3/uL; Monocyte% 7.7 % (0-10); NRBC Flagged by Analyzer 0 % (0-5); Neutrophil # 6.89 X10^3/uL (2.7-7.7); Neutrophil % 65.7 % (47-70); Platelet Count 516 K/mm3 (150-450); RBC Distribution Width CV 15.3 % (11.6-14.6); RBC Distribution Width SD 44.3 fl (35.1-43.9); Red Blood Count 5.04 M/mm3 (4.2-5.4); White Blood Count 10.5 K/mm3 (4.4-11.0)
[2024-11-30 19:06] LABS: Color, Urine Yellow (Yellow); Glucose, Dipstick Normal (Normal); Ketone-Dipstick Negative (Negative); Leukocyte Esterase-Dipstick 500 /ul (Negative); Nitrite-Dipstick Positive (Negative); Occult Blood-Urine 10 /ul (Negative); Protein-Dipstick 30 mg/dl (Negative); Specific Gravity, Urine 1.025 (1.002-1.030); Urine Bilirubin Dipstick Negative (Negative); Urine Clarity Sl. Cloudy (Clear); Urine Urobilinogen 1 mg/dl (Normal)
[2024-11-30 19:20] LABS: Internal QC Validated? YES +Cl - CLEAR BKGD; Pregnancy, Serum, hCG Quali. NEGATIVE Negative
[2024-11-30 19:21] LABS: AST(SGOT) 25 U/L (15-37); Alanine Aminotransfer ALT/SGPT 78 U/L (13-56); Albumin, Serum 4.1 g/dL (3.2-5.0); Alkaline Phosphatase 98 U/L (45-117); Anion Gap 4 (5-15); BUN 10 mg/dL (7-18); BUN/Creat Ratio 11.4 RATIO (10-20); Calcium,Total 9.6 mg/dL (8.5-10.1); Chloride 106 mmol/L (98-107); Creatinine, Serum 0.88 mg/dL (0.55-1.02); EST Glomerular Filtration Rate 82 mL/min (>60); Est Glom Filt Rate - Afr Amer 99 mL/min (>60); Estimated Creatinine Clearance 133.54 ml/min; Glucose 75 mg/dL (74-106); Potassium 3.8 mmol/L (3.5-5.1); Protein, Total 8.1 g/dL (6.4-8.2); Sodium Level 139 mmol/L (136-145)
--- NOTE | 2024-11-30 19:22 | CT_ITS ---
EXAM: CT ABDOMEN AND PELVIS WITHOUT INTRAVENOUS CONTRAST CLINICAL INDICATION: Kidney Stone -- Right flank pain radiating to groin TECHNIQUE: Helically acquired images were obtained of the abdomen and pelvis without intravenous contrast. This CT exam was performed using one or more of the following dose reduction techniques: automated exposure control, adjustment of the mA and/or kV according to patient size, and/or use of iterative reconstruction technique. RADIATION DOSE: CTDIvol = 23.11 mGy, DLP = 1293.15 mGy-cmContrast: COMPARISON: May 04, 2023. FINDINGS: LOWER THORAX: Unremarkable. Lung bases are clear. No cardiomegaly. No significant pericardial effusion. ABDOMEN: LIVER: Low-attenuation fatty liver, the right lobe is 20.7 cm craniocaudal, it was 22 cm. GALLBLADDER AND BILE DUCTS: Cholecystectomy clips. No intra- or extrahepatic biliary ductal dilation. PANCREAS: Unremarkable. No focal cystic mass. SPLEEN: Spleen 13.3 cm craniocaudal, similar. ADRENALS: Unremarkable. No nodules. KIDNEYS AND URETERS: Nonobstructing 3.7 mm stone at the lower pole of the right kidney. No hydronephrosis or ureter stone. STOMACH AND BOWEL: Moderate fluid and mild gas in the stomach. Mild fluid and gas in the small bowel. Mild stool in the right colon and in the sigmoid. No stomach or bowel distention. No focal inflammatory change. PELVIS: APPENDIX: Small appendix is best seen on sagittal images, it contains slight gas. BLADDER: Unremarkable. REPRODUCTIVE: The uterus is significantly smaller, there was previously a gravid uterus. ABDOMEN and PELVIS: INTRAPERITONEAL SPACE: Trace intrapelvic fluid, nonspecific. No free air. BONES/JOINTS: Mild Schmorl''s nodes at multiple lumbar levels. Minimal straightening of the usual lordotic curvature. No suspicious lytic or blastic abnormality. SOFT TISSUES: Trace fat in the umbilicus. No discrete abdominal or pelvic wall hernia. VASCULATURE: Unremarkable. Abdominal aorta is non-dilated. LYMPH NODES: Unremarkable. No enlarged lymph nodes. CT/Abdomen/Pelvis without Cont IMPRESSION: 1. Right nephrolithiasis. No hydronephrosis or ureter stone. No specific acute abnormality. 2. Hepatosplenomegaly and fatty liver. Electronically Signed: Kalani Henriquez MD at 21:05 EST ,
[2024-11-30 19:38] LABS: Amorphous Sediment 2+; Bacteria 2+ /hpf (None Seen); Mucous, Urine 2+ /hpf (<or=2+); Squamous Epithelial Cells - UA > 100 SEEN /hpf (5-10); White Blood Cells >100 SEEN /hpf (0-5)
[2024-11-30] MEDS: Ondansetron 4 MG/2 ML Vial IV (19:40)
[2024-11-30] MEDS: 0.9% Normal Saline (1000mL) 1,000 ML 250 ML IV (19:40)
[2024-11-30] MEDS: Morphine 4 MG/ML Syringe IV (19:40)
[2024-11-30] MEDS: Ketorolac 15 MG/ML Vial IV (19:40)
[2024-11-30 20:00] VITALS: BP 131/96; O2SAT 100
--- NOTE | 2024-11-30 20:09 | EX.ED.DYSGE1 ---
HPI History of Present Illness Chief Complaint: Flank Pain Detail of Chief Complaint: Initially intermittent right flank pain.'s been constant now for the past 3 Informant: patient and spouse/S.O. Onset/Context/Timing Onset: Days Context: Sudden Onset Timing: Continuous Quality: Pain Location: Right flank radiating to the groin Current Severity: Mild Maximum Severity: Moderate Worsened by: Nothing specific Relieved by: Nothing Associated Symptoms Associated Symptoms: Nausea without vomiting and urinary symptoms Narrative Narrative: Patient is a 29-year-old female who states she has had prior stone. Review of prior records indicates she has been here for numerous symptoms including cystitis, cholecystitis, abdominal contusion and problems related to . She reports constant pain for the past 3 days right flank rating to the right lower quadrant. She does endorse dysuria, frequency and urgency. Denies hematuria. She complains of subjective fever. Tmax 99.6. She also endorses nausea without vomiting or diarrhea. Her last normal menstrual period is unknown. She has polycystic ovarian syndrome. Patient denies headache, visual, ocular auditory symptoms. Patient denies cardiac or respiratory symptoms. Patient denies intolerance to greasy or fried foods. Patient denies history of kidney infection. Patient denies history of trauma. Prior similar symptoms: Yes (With reported kidney stone) Recent Illness/Hospitalization: No PFSH PFSH Medical History Lactating mother Vaginal delivery Positive GBS test History of depression Short interval between pregnancies affecting in third trimester, antepartum Obesity UTI in SROM (spontaneous rupture of membranes) 37 weeks gestation of MRSA infection Trauma Thyroid disorder Liver disease depression Wears glasses Fatty liver Heartburn Gastric reflux Former smoker PCOS (polycystic ovarian syndrome) Injury of head and neck Migraines Cholecystitis with cholelithiasis Chest pain Spontaneous vaginal delivery Elective induction of labor planned Marginal placenta previa Asthma Bipolar disorder Anxiety Depression Home Medications ?Medication ?Instructions ?Recorded ?Last Taken ?Type albuterol 90 mcg/actuation aerosol 90 mcg inhalation Q6H PRN PRN 10/10/23 Unknown History inhaler asthma acetaminophen 500 mg tablet 1,000 mg (2 x 500 mg) PO Q6H PRN 10/17/23 Unknown Rx PRN Pain 1-10 Or Fever #0 tabs phenazopyridine 200 mg tablet 200 mg PO TID 6 doses #6 tabs 11/30/24 Unknown Rx (Pyridium) Allergy/AdvReac Type Severity Reaction Status Date / Time aripiprazole Allergy Hives Verified 11/30/24 16:36 Family History Father Anxiety Depression Mental disorder Suicide attempt Grandfather Cancer lung Grandmother Myocardial infarction CVA (cerebral vascular accident) Surgical History History of cholecystectomy Hx of tonsillectomy History of surgery Social History household members: family housing: house current occupational status: employed current occupation: [employer] sexually active: Yes Smoking Status: Current every day smoker tobacco type: e-cigarettes Electronic Cigarette Use: not used alcohol intake: current alcohol intake frequency: holidays/special occasions only substance use type: does not use what type of physical activity do you participate in: walking frequency: 5-6 times per week seatbelt use: always do you feel safe at home: Yes ROS ROS ED Constitutional Constitutional ED: Reports chills, fever(s) and subjective; Denies sweats or weight loss Eyes Eyes: Denies blurry vision or change in vision ENT ENT ED: Denies ear pain, rhinorrhea or sore throat Cardiovascular Cardiovascular: Denies chest pain or palpitations Respiratory/Chest Respiratory/Chest: Denies cough, dyspnea or dyspnea on exertion Gastrointestinal Gastrointestinal: Reports abdominal pain and nausea; Denies diarrhea, melena or vomiting Genitourinary Genitourinary ED: Reports dysuria and urinary frequency; Denies hematuria Musculoskeletal Musculoskeletal: Reports other Details: Right flank pain ; Denies arthralgias, back pain, myalgias or neck pain Integumentary Denies rash Neurologic Neurologic: Denies headache(s) or paresthesias Hematologic/Lymphatic Hematologic/Lymphatic: Reports systems reviewed and no addt'l complaints, except as documented EXAM Physical Exam Const Vital Signs: 11/30/24 16:36 11/30/24 18:57 11/30/24 20:00 Temperature 98.6 F Temperature Source Oral Pulse Rate 88 85 Respiratory Rate 16 18 Blood Pressure 141/78 H 113/71 131/96 H Blood Pressure Mean 99 85 108 Pulse Ox 100 98 100 Oxygen Delivery Method Room Air Room Air 11/30/24 21:52 Temperature 97.8 F Temperature Source Pulse Rate 85 Respiratory Rate 16 Blood Pressure 130/75 H Blood Pressure Mean 93 Pulse Ox 99 Oxygen Delivery Method Positive well nourished and well developed; Negative for contractures or unkempt Constitutional Narrative: BMI is 41.7. Patient appears no obvious distress. General Appearance ED: well developed; Negative for unkempt, contractures, cyanotic, diaphoretic or pallor HEENT Reports dry mucous membranes HEENT Narrative: Head is atraumatic, cephalic. Ears normal. Nares patent. Posterior pharynx is normal. Mouth ED: Yes dry mucous membranes Mouth: dry mucous membranes Eyes PERRL and EOMs intact bilaterally General Eye ED: Negative for pale conjunctiva or scleral icterus Neck no lymphadenopathy, supple and no JVD Chest Wall inspection of chest normal and palpation of chest normal Resp normal respiratory effort and clear to auscultation bilaterally Cardio regular rate, regular rhythm, S1 normal heart sound, S2 normal heart sound and no murmurs GI normal to inspection, nondistended, normoactive bowel sounds, non-tender, non-distended and no masses; Negative for hepatosplenomegaly Auscultation: hypoactive bowel sounds Palpation: soft Back/Spine General Back: CVA tenderness right Thoracic Spine / Upper Back: Negative for thoracic spinal tenderness Lumbar Spine / Lower Back: Negative for lumbar spinal tenderness Extremity normal to inspection General Extremety ED: Negative for edema or tenderness General Extremity: Negative for edema Neuro oriented x3 and CN's II-XII intact bilaterally Sensorium / Orientation: alert Psych mental status grossly normal Appearance: Negative for unkempt Skin no rashes or lesions noted, no wounds and skin turgor normal General Skin Exam: Negative for jaundice or pallor MDM MDM MDM Narrative Medical decision making narrative: Differential diagnosis is flank pain of unknown etiology, pyelonephritis, obstructing ureteral stone, obstructing ureteral stone with infection, since menses unknown and she is sexually active with no form of control test is required. Appropriate blood work was obtained to assess white count, differential, renal function and CT of the abdomen pelvis without contrast was obtained. Patient's urine is grossly contaminated. Patient was informed that nurse would need to perform straight cath since she has urinary symptoms and the concern is that she has pyelonephritis. Since the concern is she has pyelonephritis will need a clean specimen to order a culture. She will receive antibiotics. Lab Data Attestation: I reviewed the patient's lab results. Lab results narrative: CBC is remarkable for microcytic indices. BMP is unremarkable. Liver enzymes are normal. Urine is grossly contaminated and of no value. Patient was told that the nurse would need to straight catheter to obtain a urine specimen since the concern is that she has pyelonephritis and need to identify organism and treat with appropriate antibiotic. Labs: Laboratory Results - last 24 hr 11/30/24 11/30/24 18:48 20:20 WBC 10.5 RBC 5.04 Hgb 12.7 Hct 40.5 MCV 80.4 L MCH 25.2 L MCHC 31.4 L RDW Std Deviation 44.3 H RDW Coeff of Leonor 15.3 H Plt Count 516 H MPV 9.7 Immature Gran % (Auto) 0.400 Neut % (Auto) 65.7 Lymph % (Auto) 23.9 [place] % (Auto) 7.7 Eos % (Auto) 1.7 Baso % (Auto) 0.6 Absolute Neuts (auto) 6.9 Absolute Lymphs (auto) 2.51 Nucleated RBC % 0 Sodium 139 Potassium 3.8 Chloride 106 Carbon Dioxide 29.0 Anion Gap 4 L BUN 10 Creatinine 0.88 Estim Creat Clear Calc 133.54 Est GFR (MDRD) Af Amer 99 Est GFR (MDRD) Non-Af 82 BUN/Creatinine Ratio 11.4 Glucose 75 Calcium 9.6 Total Bilirubin 0.70 AST 25 ALT 78 H Alkaline Phosphatase 98 Total Protein 8.1 Albumin 4.1 Globulin 4.0 Albumin/Globulin Ratio 1.0 Serum , Qual NEGATIVE Urine Color Yellow Yellow Urine Clarity Sl. Cloudy Sl Cldy Urine pH 7.0 6.0 Ur Specific [place] 1.025 1.020 Urine Protein 30 H 15 H Urine Glucose (UA) Normal Normal Urine Ketones Negative Negative Urine Occult Blood 10 H 10 H Urine Nitrite Positive H Negative Urine Bilirubin Negative Negative Urine Urobilinogen 1 H Normal Ur Leukocyte Esterase 500 H 25 H Urine RBC 0 SEEN 0-5 SEEN Urine WBC >100 SEEN 5-10 SEEN Ur Squamous Epith Cells > 100 SEEN 0-5 SEEN Amorphous Sediment 2+ 1+ URATE Urine Bacteria 2+ 0 SEEN Urine Mucus 2+ 0 SEEN Cath urine is not consistent with infection. Sipper gravity is 1.020. Urine is slightly cloudy and yellow in color. Macro is positive for occult blood and leukoesterase and negative for nitrites. Micro reveals 0-5 RBCs, 5-10 WBCs with no bacteria. Radiography Diagnostic Testing: Clinical Impression(s) from Imaging Studies Abdomen/Pelvis CT 11/30/24 19:22 IMPRESSION: 1. Right nephrolithiasis. No hydronephrosis or ureter stone. No specific acute abnormality. 2. Hepatosplenomegaly and fatty liver. Electronically Signed: Kalani Henriquez MD at 21:05 EST , CT of the abdomen pelvis without contrast reveals a renal calculus right side. There is no ureterolithiasis. There is no hydroureter or hydronephrosis. There is no evidence of renal ureterolithiasis on the left. Awaiting formal read by radiologist, 2008 Treatment and Re-Evaluation :: Patient was informed of results. Patient was informed the cause of her pain is unknown. She was told that a kidney stone does not cause pain. Will treat with Pyridium for her discomfort with urination. Will send a urine culture. If positive she will need antibiotics. Discharge Plan Triage Chief Complaint: Flank Pain Other Complaint: Abd Pain ED Provider: Darion Vega Dx/Rx/DC Orders Clinical Impression: Acute right flank pain, Bipolar disorder, Dysuria, Polycystic ovarian syndrome, Renal calculus, right Instructions: ED Dysuria, Uncertain Cause (Adult), ED Flank Pain, Uncertain Cause Prescriptions: New phenazopyridine [Pyridium] 200 mg tablet 200 mg PO TID Qty: 6 0RF No Action acetaminophen 500 mg Tablet 1,000 mg PO Q6H PRN PRN (Reason: Pain 1-10 Or Fever) Qty: 0 0RF albuterol 90 mcg/actuation aerosol 90 mcg inhalation Q6H PRN PRN (Reason: asthma) Primary Care Provider: Magnolia Chen Referrals: Magnolia Chen MD [Primary Care Provider] - 3-5 Days if not improving Print Language: Welsh Disposition Disposition: Home, Self Care Discharge Date/Time: 11/30/24 21:53
[2024-11-30 20:58] LABS: Bacteria 0 SEEN /hpf (None Seen); Mucous, Urine 0 SEEN /hpf (<or=2+)
[2024-11-30 21:00] LABS: Color, Urine Yellow (Yellow); Glucose, Dipstick Normal (Normal); Ketone-Dipstick Negative (Negative); Leukocyte Esterase-Dipstick 25 /ul (Negative); Nitrite-Dipstick Negative (Negative); Occult Blood-Urine 10 /ul (Negative); Protein-Dipstick 15 mg/dl (Negative); Urine Bilirubin Dipstick Negative (Negative); Urine Urobilinogen Normal (Normal)
[2024-11-30 21:06] LABS: Red Blood Cells-Urine 0-5 SEEN /hpf (0-5); Squamous Epithelial Cells - UA 0-5 SEEN /hpf (5-10); White Blood Cells 5-10 SEEN /hpf (0-5)
[2024-11-30 21:07] LABS: Amorphous Sediment 1+ URATE; Urine Clarity Sl Cldy (Clear)
[2024-11-30 21:52] VITALS: BP 130/75; PULSE 85; RESP 16; TEMP 36.6; O2SAT 99
== END 2024-11-30 21:53 | disposition home or self-care (01) ==
PROVIDERS: Emergency Provider Emergency Medicine; PCP Internal Medicine; Visit Provider Emergency Medicine
DX: N20.0 Calculus of kidney (principal); F31.9 Bipolar disorder, unspecified; B95.61 Methicillin susceptible Staphylococcus aureus infection as the cause of diseases classified elsewhere; E28.2 Polycystic ovarian syndrome; F17.290 Nicotine dependence, other tobacco product, uncomplicated
CPT/HCPCS: 51701; 74176; 80053; 81001; 84703; 85025; 87077; 87086; 87088; 87186; 96361; 96374; 96375; 99285; P9612; A4216; J2405

== ENCOUNTER → 2024-12-16 | Outpatient (CLI) | payer MEDICAID, SELFPAY ==
[2024-12-16 12:26] LABS: Absolute Lymphocyte Count 1.37 X10^3/uL (0.83-4.51); Absolute Neutrophil Count 6.5 X10^3/uL (2.0-7.7); Basophil# 0.06 X10^3/uL; Basophil% 0.7 % (0-1); Eosinophil# 0.09 X10^3/uL; Eosinophils% 1.1 % (0-5); Hematocrit 38.5 % (37-47); Hemoglobin 12.2 g/dL (12.0-15.0); Lymphocyte # 1.37 X10^3/ul (0.83-4.51); Lymphocyte % 16.1 % (19-41); Mean Corp Hgb Conc 31.7 g/dL (32-36); Mean Corpuscular Hgb 25.6 pg (27.0-32.0); Mean Corpuscular Volume 80.7 fL (81-99); Monocyte% 5.9 % (0-10); NRBC Flagged by Analyzer 0 % (0-5); Neutrophil # 6.49 X10^3/uL (2.7-7.7); Platelet Count 484 K/mm3 (150-450); RBC Distribution Width CV 15.6 % (11.6-14.6); RBC Distribution Width SD 45.4 fl (35.1-43.9); Red Blood Count 4.77 M/mm3 (4.2-5.4); White Blood Count 8.5 K/mm3 (4.4-11.0)
[2024-12-16 12:42] LABS: Vitamin D,25 Hydroxy 10.5 ng/mL
[2024-12-16 12:44] LABS: Hemoglobin A1c 5.3 % (3.8-5.6)
[2024-12-16 13:01] LABS: ALB/GLOB Ratio 0.9 RATIO (0.9-2.4); AST(SGOT) 35 U/L (15-37); Alanine Aminotransfer ALT/SGPT 74 U/L (13-56); Albumin, Serum 3.8 g/dL (3.2-5.0); Alkaline Phosphatase 89 U/L (45-117); Anion Gap 7 (5-15); BUN 7 mg/dL (7-18); BUN/Creat Ratio 7.7 RATIO (10-20); Chloride 107 mmol/L (98-107); Cholesterol 175 mg/dL (200); Creatinine, Serum 0.92 mg/dL (0.55-1.02); EST Glomerular Filtration Rate 78 mL/min (>60); Est Glom Filt Rate - Afr Amer 95 mL/min (>60); Follicle Stimulating Hormone 1.2 mIU/mL; Globulin 4.1 g/dL (2.2-4.2); Glucose 101 mg/dL (74-106); High Density Lipoprotein 38 mg/dL; Potassium 3.8 mmol/L (3.5-5.1); Protein, Total 7.9 g/dL (6.4-8.2); Sodium Level 138 mmol/L (136-145); Triglycerides 96 mg/dL; Very Low Density Lipoprotein 19 mg/dL (5-40)
[2024-12-17 16:27] LABS: T4 Free Direct 0.92 ng/dL (0.76-1.46)
[2024-12-24 15:07] LABS: Testosterone, Total 64 ng/dL (13-71)
== END | disposition home or self-care (01) ==
LOC: VSLAB 11:10
PROVIDERS: PCP Nurse Practitioner Family; Visit Provider Nurse Practitioner Family
DX: R94.6 Abnormal results of thyroid function studies (principal); K76.0 Fatty (change of) liver, not elsewhere classified; E28.2 Polycystic ovarian syndrome; E88.810 Metabolic syndrome; E66.9 Obesity, unspecified; E56.9 Vitamin deficiency, unspecified
CPT/HCPCS: 36415; 80053; 80061; 82306; 83001; 83002; 83036; 84402; 84403; 84439; 84443; 85025

== ENCOUNTER → 2024-12-23 | Outpatient (CLI) | payer MEDICAID, SELFPAY ==
[2024-12-23 13:00] LABS: Color, Urine Yellow (Yellow); Glucose, Dipstick Normal (Normal); Ketone-Dipstick Negative (Negative); Leukocyte Esterase-Dipstick 500 /ul (Negative); Nitrite-Dipstick Positive (Negative); Occult Blood-Urine 25 /ul (Negative); Protein-Dipstick 30 mg/dl (Negative); Specific Gravity, Urine 1.015 (1.002-1.030); Urine Bilirubin Dipstick Negative (Negative); Urine Clarity Cloudy (Clear); Urine Urobilinogen Normal (Normal); Urine pH 6.5 (5.0 - 8.0)
== END | disposition home or self-care (01) ==
LOC: LABSPEC 11:34
PROVIDERS: PCP Nurse Practitioner Family; Visit Provider Nurse Practitioner Family
DX: N39.0 Urinary tract infection, site not specified (principal)
CPT/HCPCS: 36415; 81002; 87077; 87086; 87088; 87186

== ENCOUNTER 2025-06-21 15:48 | Outpatient (CLI) | payer MEDICAID, SELFPAY ==
[2025-06-21 16:09] VITALS: BP 137/68; PULSE 98; RESP 13; TEMP 36.7; O2SAT 100
[2025-06-21 16:40] LABS: Hematocrit 30.6 % (37-47); Hemoglobin 9.9 g/dL (12.0-15.0); Immature Granulocytes Count 0.050 X10^3/uL (0.0-0.0); Mean Corp Hgb Conc 32.4 g/dL (32-36); Mean Corpuscular Volume 83.6 fL (81-99); Mean Platelet Vol. 9.9 fl (6.2-12.0); NRBC Flagged by Analyzer 0 % (0-5); Platelet Count 362 K/mm3 (150-450); RBC Distribution Width CV 15.9 % (11.6-14.6); RBC Distribution Width SD 48.4 fl (35.1-43.9); Red Blood Count 3.66 M/mm3 (4.2-5.4); White Blood Count 9.8 K/mm3 (4.4-11.0)
[2025-06-21 16:56] VITALS: BMI 40.6
[2025-06-21] MEDS: 0.9% Normal Saline (1000mL) 1,000 ML 100 ML IV (17:01)
--- NOTE | 2025-06-21 17:09 | OB.TRI.NOTE ---
HPI - General HPI Narrative LOW PRETTY, is a 29 F at 31.1 weeks gestation who was sent over from office visit for lower back, flank pain and UTI symptoms. Patient to be observation status and to get 24 hours of IV antibiotics. Maternal Data Information CLAUDIO Calculator Estimated Delivery Date Method Current WG Current Estimate 08/22/25 Manual 31w 1d PFSH PFSH Medical History Lactating mother Vaginal delivery Positive GBS test History of depression Short interval between pregnancies affecting in third trimester, antepartum Obesity UTI in SROM (spontaneous rupture of membranes) 37 weeks gestation of MRSA infection Trauma Thyroid disorder Liver disease depression Wears glasses Fatty liver Heartburn Gastric reflux Former smoker PCOS (polycystic ovarian syndrome) Injury of head and neck Migraines Cholecystitis with cholelithiasis Chest pain Spontaneous vaginal delivery Elective induction of labor planned Marginal placenta previa Asthma Bipolar disorder Anxiety Depression Home Medications ?Medication ?Instructions ?Recorded ?Last Taken ?Type albuterol 90 mcg/actuation aerosol 90 mcg inhalation Q6H PRN PRN 10/10/23 Unknown History inhaler asthma acetaminophen 500 mg tablet 1,000 mg (2 x 500 mg) PO Q6H PRN 10/17/23 Unknown Rx PRN Pain 1-10 Or Fever #0 tabs phenazopyridine 200 mg tablet 200 mg PO TID 6 doses #6 tabs 11/30/24 Unknown Rx (Pyridium) sulfamethoxazole 800 1 tab PO BID #6 TABLETS 12/02/24 Unknown Rx mg-trimethoprim 160 mg tablet Allergy/AdvReac Type Severity Reaction Status Date / Time aripiprazole Allergy Hives Verified 11/30/24 16:36 Family History Father Anxiety Depression Mental disorder Suicide attempt Grandfather Cancer lung Grandmother Myocardial infarction CVA (cerebral vascular accident) Surgical History History of cholecystectomy Hx of tonsillectomy History of surgery Social History household members: family housing: house current occupational status: employed current occupation: [email or web address] sexually active: Yes Smoking Status: Current every day smoker tobacco type: e-cigarettes Electronic Cigarette Use: not used alcohol intake: current alcohol intake frequency: holidays/special occasions only substance use type: does not use what type of physical activity do you participate in: walking frequency: 5-6 times per week seatbelt use: always do you feel safe at home: Yes History 1 Elective abortions Hx Para 1 Spontaneous abortions Hx # Term Pregnancies Ectopic pregnancies Hx # Pregnancies Multiple births # of living children 1 ROS Eyes Eyes: Denies blurry vision Cardiovascular Cardiovascular: Reports none; Denies chest pain at rest, chest pain with activity or dizziness Respiratory/Chest Respiratory/Chest: Denies cough or dyspnea Gastrointestinal Gastrointestinal: Reports none and other; Denies diarrhea or vomiting Genitourinary Genitourinary: Reports as per HPI, low back pain and other Details: flank pain Musculoskeletal Musculoskeletal: Reports none Integumentary Integumentary: Reports none; Denies rash Neurologic Neurologic: Denies dizziness, headache(s) or other visual disturbances Psychiatric Psychiatric: Reports none Assessment & Plan (1) 31 weeks gestation of : (2) Flank pain: (3) Recurrent UTI (urinary tract infection) complicating : PLAN: Plan Afebrile Start IV and run N/S at 100 mg/hour Start Ceftriaxone 1 gm IV every 24 hours Continuous monitoring
[2025-06-21 19:24] VITALS: BP 138/70; PULSE 93
[2025-06-21 19:25] VITALS: PULSE 94; RESP 16; TEMP 36.4; O2SAT 98
[2025-06-21 23:45] VITALS: BP 121/56; PULSE 71; RESP 16; TEMP 36.6; O2SAT 97
[2025-06-22] MEDS: 0.9% Normal Saline (1000mL) 1,000 ML 100 ML IV (02:41)
[2025-06-22 04:05] VITALS: RESP 18; TEMP 36.9
[2025-06-22 04:06] VITALS: BP 124/62; PULSE 68; O2SAT 98
[2025-06-22 05:48] VITALS: PULSE 71; O2SAT 99
[2025-06-22 07:17] VITALS: PULSE 65; O2SAT 98
[2025-06-22 07:18] VITALS: BP 104/55; PULSE 63; RESP 16; TEMP 36.4
--- NOTE | 2025-06-22 07:46 | PCM.PN.CNM ---
Subjective Subjective Patient seen at bedside. C/O continued lower back/flank pain. Did not sleep well. Objective Data Objective Data Vital Signs: Vital Signs Temp Pulse Resp BP Pulse Ox 97.5 F L 63 16 104/55 L 98 06/22/25 07:18 06/22/25 07:18 06/22/25 07:18 06/22/25 07:18 06/22/25 07:17 Weight: 267 lb Body Mass Index (BMI) 40.6 Intake & Output: Intake and Output for Last 24 Hours 06/20/25 06/21/25 06/22/25 23:59 23:59 23:59 Intake Total 50 50 966.67 / 966.67 Balance 50 50 966.67 / 966.67 Lab / Micro Data 06/21/25 16:30 Labs: Laboratory Results - last 24 hr 06/21/25 16:30: WBC 9.8, RBC 3.66 L, Hgb 9.9 L, Hct 30.6 L, MCV 83.6, MCH 27.0, MCHC 32.4, RDW Std Deviation 48.4 H, RDW Coeff of Leonor 15.9 H, Plt Count 362, MPV 9.9, Immature Gran % (Auto) 0.500, Neut % (Auto) 79.4 H, Lymph % (Auto) 12.8 L, [place] % (Auto) 6.6, Eos % (Auto) 0.5, Baso % (Auto) 0.2, Absolute Neuts (auto) 7.7, Absolute Lymphs (auto) 1.25, Nucleated RBC % 0 Assessment & Plan (1) Recurrent UTI (urinary tract infection) complicating : (2) Flank pain: (3) 31 weeks gestation of : (4) Cramping affecting , antepartum: (5) Bipolar disorder: COMMENT: ON MED (6) Asthma: PLAN: Plan Continue IV fluids at 100 cc/hour S/P IV antibiotics x 1 dose Afebrile Morphine 4 mg IV PRN every 4-6 hours for pain Tylenol 1000 mg PO PRN every 6 hours for pain/ fever A&P provided to Dr. Kenney who will be assumming managment over patient
== END 2025-06-22 11:38 | disposition home or self-care (01) ==
LOC: WPOUT 15:51 → WP 15:51
PROVIDERS: Obstetrics & Gynecology; PCP Nurse Practitioner Family; Referring Provider Advanced Practice Midwife; Visit Provider Advanced Practice Midwife
DX: O23.43 Unspecified infection of urinary tract in pregnancy, third trimester (principal); O99.333 Smoking (tobacco) complicating pregnancy, third trimester; F17.290 Nicotine dependence, other tobacco product, uncomplicated; Z3A.31 31 weeks gestation of pregnancy
CPT/HCPCS: 96365; 96375; 36415; 59025; 59050; 85025; 99221; G0378; J2405

== ENCOUNTER 2025-07-22 02:44 | Outpatient (CLI) | payer OTHER, MEDICAID, SELFPAY ==
--- OUTSIDE RECORDS SUMMARY | 2025-07-22 02:53 | XMS RPT_ITS | CCD ---
Author Organization [facility] Care Team Providers Care [employer] Name Role Phone Shivani Rowell Unavailable Unavailable LouisvilleCarine littlejohn Unavailable Unavailable OrtegaSabrina littlejohni A Unavailable Unavailable ALICIA ROWELLIE A Unavailable Unavailable REFERRED, SELF Unavailable Unavailable SHIVANI ROWELL Unavailable Unavailable Suhas Bojorquez Unavailable Unavailable Suhas Bojorquez Unavailable Unavailable COLIN CLEMENTS Admitting Unavailable COLIN CLEMENTS Primary Care Unavailable COLIN CLEMENTS Attending Unavailable GIUSEPPE CANCINO Admitting Unavailable GIUSEPPE CANCINO Primary Care Unavailable GIUSEPPE CANCINO Consulting Unavailable GIUSEPPE CANCINO Attending Unavailable PROVIDER, UNKNOWN Consulting Unavailable Care Physician, No Primary Primary Care Provider Unavailable Dr. Edouard Siegel Emergency Provider Dr. Antelmo Alegre Admit Provider Dr. Antelmo Alegre Attending Provider Dr. Antelmo Alegre Referring Provider Dr. Antelmo Alegre Other Provider ALPESH Blanc Attending Provider Care Physician, No Primary Primary Care Provider Unavailable Dr. Edouard Siegel Emergency Provider Dr. Antelmo Alegre Admit Provider Dr. Antelmo Alegre Attending Provider Dr. Antelmo Alegre Referring Provider Dr. Antelmo Alegre Other Provider ALPESH Blanc Attending Provider Care Physician, No Primary Referring Provider Un available Dr. Magnolia Chen Attending Provider [phone] Dr. Magnolia Chen Primary Care Provider Dr. Magnolia Chen Referring Provider [phone] Unavailable Primary Care Provider UnavailDr. Magnolia López Primary Care Provider Dr. Magnolia Chen Referring Provider [phone] Dr. Antelmo Alegre Attending Provider Dr. Antelmo Alegre Other Provider Dr. Magnolia Chen Primary Care Provider Dr. Magnolia Chen Referring Provider [phone] MACHINIST FIRST CLASS, MACHINIST FIRST CLASS-C Yuliya Attending Provider Unavailable Primary Care Provider Unavailabl e PROCHARO, ISHAAN Admitting Unavailable PROCHARO ISHAAN Attending Unavailable ABHAY CAMPBELL Admitting Unavailable EDOUARD ANDUJAR Attending Unavailable Alexander MACHINIST FIRST CLASS-C, Nighat Primary Care Provider Ari Blum CNM Attending Provider Ari Blum CNM Referring Provider Nighat Lo Attending Unavailabl e Alexander VSC, Nighat Primary Care Unavailabl e Alexander GUAJARDO, Nighat Primary Care Unavailabl e Alexander GUAJARDO, Nighat Attending Unavailabl e Thao Vegao Attending Unavailable Magnolia Chen Primary Care Unavailable Alexander GUAJARDO, Nighat Primary Care Unavailabl e Ari Blum Referring Unavailable Ari Blum Attending Unavailable BERTA NOAM Attending Unavailable AMBERLY SANCHEZ Referring Unavailable NOAM WYMAN Attending Unavailable DANIEL KARMON Referring Unavailable NIGHAT MALONEY Attending Unavailable HAMAYNOR, JUDIT Referring Unavailable NIGHAT MALONEY Attending Unavailable HAURY, JUDIT Referring Unavailable ARI BLUM Attending Unavailable HAURY, JUDIT Referring Unavailable VINCE REID, TOM Referring Unavail able RADHA ROWELL Attending Unavailable NENADEGE REID, TOM Referring Unavail able NEJUANY MACKAYRE Referring Unavail able AMBERLY SANCHEZ Attending Unavailable NEYHART REID, TOM Referring Unavail able ALESIA MALLORY Referring Unavailable AMBERLY SANCHEZ Attending Unavailable NEYMARCO ANTONIOT REID, TOM Referring Unavail able NEYAURELIA WAGGONERNTOSH, TOM Referring Unavail able HAURY, JUDIT Referring Unavailable AMBERLY SANCHEZ Attending Unavailable HAURY, JUDIT Referring Unavailable NIGHAT MALONEY Attending Unavailable HAURY, JUDIT Referring Unavailable HAURY, JUDIT Attending Unavailable MALONEY, NIGHAT Referring Unavailable MALLORY, ALESIA Attending Unavailable HAURY, JUDIT Referring Unavailable HAURY, JUDIT Attending Unavailable HAURY, JUDIT Referring Unavailable NEYHART REID, TOM Attending Unavail able HAURY, JUDIT Attending Unavailable Allergies Allergy Classification Reported Allergen(s) Allergy Type Date of Onset Reaction(s) Facility (20 sources) ARIPiprazole; Translations: [ARIPiprazole] Drug Allergy 03-05-2016 [facility] Repository Comment on above: THAT SHE CAN TAKE AB ILIFY, BUT CANNOT TAKE THIS MED (GENERIC) Medications Current Medications Medication Drug Class(es) Dates Sig (Normalized) Sig (Original) acetaminophen 500 mg oral tablet (20 sources) Start: 04-28-2025 take 2 tablets by mouth every six hours as needed acetaminophen (TYLENOL) 500 mg tablet Take 2 tablets by mouth every 6 hours as needed for pain. 60 tablet 04/28/2025 Active Start: 10-17-2023 take 1000 mg by mout h every six hours as needed Acetaminophen Active 1000 MG PO EVERY 6 HOURS NEEDED 0 October 17, 2023 12:00am Start: 02-18-2013 acetaminophen (TYLENOL) 500 mg tablet Take by mouth. 02/18/2013 Active Comment on above: Take by mouth. Albuterol (20 sources) beta2-Adrenergic Agonist Start: 10-10-2023 Albuterol Active MCG INHALATION October 10, 2023 12:00am Start: 04-22-2017 End: 01-21-2025 VENTOLIN HFA 90 mcg/actuatio n inhaler 04/22/2017 01/21/2025 Discontinued Albuterol 90 mcg/actuation aerosol (1 source) Start: 10-10-2023 take 90 ug by inhalation every six hours as needed Albuterol 90 mcg/actuation aerosol Active 90 ug INHALATION EVERY 6 HOURS NEEDED as needed for asthma October 10, 2023 1:00am aspirin 81 mg delayed release oral tablet (20 sources) Platelet Aggregation Inhibitor, Nonsteroidal Anti-inflammatory Drug Start: 01-21-2025 take 1 tablet by mouth once daily for depression aspirin, enteric coated (ECOTRIN LOW STRENGTH) 81 mg EC tablet Indications: with uncertain dates in first trimester ([facility]) , Encounter for supervision of high risk in first trimester, antepartum ([facility]) , Obesity affecting in first trimester, unspecified obesity type ([facility]) , History of miscarriage , Depression affecting ([facility]) , Family history of defect Take 1 tablet by mouth once daily. 90 tablet 3 01/21/2025 Active cholecalciferol 0.125 mg oral capsule (20 sources) Vitamin D Start: 12-17-2024 Cholecalciferol, Vitamin D3, 125 mcg (5,000 unit) cap 5,000 Units once daily. 12/17/2024 Active dicyclomine hydrochloride 20 mg oral tablet (7 sources) Anticholinergic Start: 10-21-2022 take 20 mg by mouth three times daily Dicyclomine Active 20 MG PO THREE TIMES A DAY October 21, 2022 10:21pm ferrous sulfate 325 mg oral tablet (15 sources) Start: 06-21-2025 take 1 tablet by mouth once daily Ferrous Sulfate (Feosol) 325 mg (65 mg iron) tablet Active 325 mg PO DAILY June 21, 2025 12:00am Start: 05-06-2025 take 1 tablet by tray th every other day ferrous sulfate (IRON) 325 mg (65 mg iron) tablet Indications: Anemia complicating , second trimester ([facility]) Take 1 tablet by mouth every other day. 60 tablet 2 05/06/2025 Active lansoprazole 30 mg delayed release oral capsule (5 sources) Proton Pump Inhibitor Start: 11-08-2022 take 1 capsule by mouth once daily Lansoprazole (Prevacid) 30 mg capsule,delayed release(DR/EC) Active 30 MG PO DAILY November 08, 2022 1:00am levothyroxine sodium 0.125 mg oral tablet (20 sources) l-Thyroxine Start: 05-17-2025 take 1 tablet by mouth once daily levothyroxine (SYNTHROID) 125 mcg tablet Take 1 tablet by mouth once daily. 90 tablet 3 05/17/2025 Active Start: 04-29-2025 End: 05-17-2025 take 1 tablet by mouth once daily in the morning levothyroxine (SYNTHROID) 100 mcg tablet Take 1 tablet by mouth daily at 6 am. 90 tablet 04/29/2025 05/17/2025 Discontinued (Dosage adjustment) Start: 04-09-2025 End: 05-17-2025 take 0.5 tablet by mouth once daily levothyroxine (SYNTHROID) 75 mcg tablet Take 0.5 tablets by mouth once daily. 15 tablet 2 04/09/2025 05/17/2025 Discontinued (Dosage adjustment) Start: 12-17-2024 End: 04-09-2025 take 1 tablet by mouth once daily levothyroxine (SYNTHROID) 25 mcg tablet Take 25 mcg by mouth once daily. 12/17/2024 04/09/2025 Discontinued metroNIDAZOLE 500 mg oral tablet (2 sources) Nitroimidazole Antimicrobial Start: 07-15-2023 End: 07-22-2023 take 1 tablet by mouth twice daily metroNIDAZOLE (FLAGYL) 500 mg tablet Take 1 tablet by mouth twice daily for 7 days. 14 tablet 0 07/15/2023 07/22/2023 Active Comment on above: Take 1 tablet by tray th twice daily for 7 days. Multivitamin preparation (7 sources) Start: 2022 take 1 tablet by mouth once daily Multivitamin Active 1 TABLET PO DAILY 2022 1:00am Start: 2022 take 1 tablet by tray th once daily Multivitamin Active 1 TABLET PO DAILY 2022 12:00am nitrofurantoin, macrocrystals 25 mg / nitrofurantoin, monohydrate 75 mg oral capsule (20 sources) Nitrofuran Antibacterial Start: 05-09-2026 End: 11-05-2026 nitrofurantoin monohydrate and macrocrystal (MACROBID) 100 mg capsule Take 1 capsule by mouth once daily. Take 1 capsule once daily for suppression / UTI prophylaxis for duration of Patient should start on May 09, 2026. 180 capsule 05/09/2026 11/05/2026 Active Start: 06-21-2025 End: 06-21-2025 take 1 capsule by mouth twice daily at mealtime nitrofurantoin monohydrate and macrocrystal (MACROBID) 100 mg capsule Indications: 31 weeks gestation of (HCC) , Dysuria Take 1 capsule by mouth two times a day with meals for 14 days. 28 capsule 06/21/2025 06/21/2025 Discontinued Start: 06-21-2025 take 1 capsule by mo ut once daily Nitrofurantoin Monohyd/M-Cryst (Macrobid) 100 mg capsule Active 100 mg PO DAILY June 21, 2025 12:00am Start: 04-28-2025 End: 05-08-2025 take 1 capsule by mouth twice daily at mealtime nitrofurantoin monohydrate and macrocrystal (MACROBID) 100 mg capsule Take 1 capsule by mouth two times a day with meals for 19 doses. 19 capsule 04/28/2025 05/08/2025 Active Start: 04-08-2025 End: 04-15-2025 take 1 capsule by mouth twice daily nitrofurantoin monohydrate and macrocrystal (MACROBID) 100 mg capsule Indications: Dysuria Take 1 capsule by mouth two times a day for 7 days. 14 capsule 04/08/2025 04/09/2025 Discontinued (Course of therapy completed) Start: 01-21-2025 End: 01-28-2025 take 1 capsule by mouth twice daily nitrofurantoin monohydrate and macrocrystal (MACROBID) 100 mg capsule Indications: Dysuria during , antepartum Take 1 capsule by mouth two times a day for 7 days. 14 capsule 01/21/2025 01/28/2025 Active Start: 09-22-2023 End: 11-30-2024 take 1 capsule by mouth once daily Nitrofurantoin Monohyd/M-Cryst (Macrobid) 100 mg capsule Discontinued 100 mg PO DAILY September 22, 2023 12:00am November 30, 2024 8:44pm frequent UTI's Start: 09-13-2023 End: 09-23-2023 take 1 capsule by mouth twice daily nitrofurantoin monohydrate and macrocrystal (MACROBID) 100 mg capsule Take 1 capsule by mouth two times a day for 10 days. 20 capsule 0 09/13/2023 09/23/2023 Discontinued Start: 07-11-2023 End: 07-18-2023 take 1 capsule by mouth twice daily nitrofurantoin monohydrate and macrocrystal (MACROBID) 100 mg capsule Take 1 capsule by mouth twice daily for 7 days. 14 capsule 0 07/11/2023 07/18/2023 Start: 04-03-2023 take 100 mg by mouth every twelve hours Nitrofurantoin Monohyd/M-Cryst Active 100 MG PO EVERY 12 HOURS April 03, 2023 12:00am Comment on above: Take 1 capsule by mo [facility] twice daily for 7 days. Take 1 capsule by [facility] two times a day for 10 days. Take 1 capsule by [facility] once daily. oxyCODONE hydrochloride 5 mg oral tablet (18 sources) Opioid Agonist Start: End: take 1 tablet by mouth every six hours as needed for pain oxyCODONE IR (ROXICODONE) 5 mg immediate release tablet Indications: Pyelonephritis complicating , antepartum (HCC) Take 1 tablet by mouth every 6 hours as needed for pain for up to 5 days. 8 tablet 04/11/2025 04/16/2025 Active Start: 09-24-2022 End: 10-04-2022 take 1 tablet by mouth every six hours as needed for pain Oxycodone 5 mg Tablet Discontinued 5 mg PO EVERY 6 HOURS NEEDED as needed for Pain Score 6-10 14 3 0 September 24, 2022 October 04, 2022 12:36pm Cholelithiasis with cholecystitis Calculus of gallbladder with chronic cholecystitis without obstruction Sgfmxbuf-Joi-Zf-Fa (1 source) Start: 05-04-2023 take 1 tablet by mouth once daily Hucweogk-Veg-Ud-Fa Active 1 TABLET PO DAILY May 03, 2023 11:00pm Qzfkvnyr-Qbn-Rm-Fa () 1 mg Tablet (5 sources) Start: 05-04-2023 take 1 tablet by mouth once daily Xlsheout-Ekh-Vm-Fa () 1 mg Tablet Active 1 TABLET PO DAILY May 03, 2023 11:00pm Start: 05-04-2023 take 1 tablet by [facility] once daily Jjhoefcs-Rji-Lr-Fa () 1 mg Tablet Active 1 TABLET PO DAILY May 04, 2023 12:00am Vit-Iron Fum-Folic Ac (Prena-Tab) 65 mg iron- 1 mg Tablet (4 sources) Start: 08-20-2021 take 1 tablet by mouth once daily before mealtime Vit-Iron Fum-Folic Ac (Prena-Tab) 65 mg iron- 1 mg Tablet Active 1 TABLET PO DAILY August 20, 2021 6:48pm vits62/FA/om3/dha/epa ( GUMMY ORAL) (20 sources) vits62/FA/om3/dh a/epa ( GUMMY ORAL) Take 1 Piece by mouth once daily. Active sulfamethoxazole 800 mg / trimethoprim 160 mg oral tablet (9 sources) Dihydrofolate Reductase Inhibitor Antibacterial, Sulfonamide Antimicrobial Start: 07-15-2025 take 1 tablet by mouth twice daily sulfamethoxazole -trimethoprim (BACTRIM DS) 800-160 mg per tablet Take 1 tablet by mouth two times a day. 14 tablet 07/15/2025 Active Start: 12-02-2024 End: 06-21-2025 Sulfamethoxazole-Trimethopri m 800-160 mg tablet Discontinued 1 {tbl} PO TWICE A DAY 6 0 December 02, 2024 1:00am June 21, 2025 6:51pm Start: 08-20-2023 End: 08-27-2023 take 1 tablet by mouth twice daily sulfamethoxazole-trimethoprim (BACTRIM D S) 800-160 mg per tablet Take 1 tablet by mouth twice daily for 7 days. 14 tablet 0 08/20/2023 08/27/2023 Active Start: 11-08-2022 take 1 tablet by tray th twice daily Sulfamethoxazole-Trimethoprim Active 1 T ABLET PO TWICE A DAY November 08, 2022 1:00am Comment on above: Take 1 tablet by tray th twice daily for 7 days. Completed/Discontinued Medications Medication Drug Class(es) Dates Sig (Normalized) Sig (Original) amoxicillin 500 mg oral capsule (1 source) Penicillin-class Antibacterial Start: 04-16-2017 End: 02-08-2023 amoxicillin (POLYMOX, AMOXIL) 500 mg capsule cephalexin 500 mg oral capsule (3 sources) Cephalosporin Antibacterial Start: 04-24-2025 End: 08-22-2025 take 1 capsule by mouth once daily cephALEXin (KEFLEX) 500 mg capsule Take 1 capsule by mouth once daily. Continue for remainder of Patient should start on April 24, 2025. 30 capsule 3 04/24/2025 04/28/2025 Discontinued Start: 04-11-2025 End: 04-23-2025 take 1 capsule by mouth four times daily cephALEXin (KEFLEX) 500 mg capsule Take 1 capsule by mouth four times daily for 12 days. 48 capsule 04/11/2025 04/23/2025 Active citalopram 20 mg oral tablet (20 sources) Serotonin Reuptake Inhibitor Start: 12-12-2022 End: 06-27-2023 citalopram (CELEXA) 20 mg tablet Start: 09-23-2022 End: 07-21-2023 take 2 tablets by mouth at bedtime Citalopram (Celexa) 20 mg Tablet Discontinued 40 mg PO AT BEDTIME September 23, 2022 12:00am July 21, 2023 2:35am mood cyclobenzaprine hydrochloride 10 mg oral tablet (10 sources) Muscle Relaxant Start: 06-22-2025 End: 07-20-2025 take 1 tablet by mouth every eight hours as needed cyclobenzaprine (FLEXERIL) 10 mg tablet Take 1 tablet by mouth three times a day as needed for pain. 20 tablet 06/22/2025 07/20/2025 Discontinued Start: 04-28-2025 End: 06-03-2025 take 1 tablet by mouth every eight hours as needed cyclobenzaprine (FLEXERIL) 5 mg tablet Take 1 tablet by mouth three times a day as needed. 20 tablet 04/28/2025 06/03/2025 Discontinued doxepin hydrochloride 25 mg oral capsule (1 source) Tricyclic Antidepressant Start: 02-08-2017 End: 02-08-2023 doxepin capsule 25 mg doxylamine succinate 10 mg / pyridoxine hydrochloride 10 mg delayed release oral tablet (3 sources) Start: 04-01-2023 doxylamine-pyrido xine, vit B6, (DICLEGIS) 10-10 mg TbEC Take 2 tabs at night. If symptoms persist after 2 days add one tab in the morning. If symptoms still persist after 4 days add a tab mid-day 45 tablet 0 04/01/2023 Active Comment on above: Take 2 tabs at night . If symptoms persist after 2 days add one tab in the morning. If symptoms still persist after 4 days add a tab mid-day hydrOXYzine pamoate 25 mg oral capsule (20 sources) Antihistamine Start: 07-11-2023 End: 11-30-2024 take 1 capsule by mouth every eight hours as needed hydrOXYzine pamoate (VISTARIL) 25 mg capsule Take 1 capsule by mouth three times daily as needed. 90 capsule 07/11/2023 11/30/2024 Discontinued Comment on above: Take 1 capsule by mo [facility] three times daily as needed. ibuprofen 600 mg oral tablet (2 sources) Nonsteroidal Anti-inflammatory Drug Start: 10-17-2023 End: 11-30-2024 take 1 tablet by mouth every six hours as needed for pain Ibuprofen 600 mg Tablet Discontinued 600 mg PO EVERY 6 HOURS NEEDED as needed for Pain Score 1-3 0 0 October 17, 2023 1:00am November 30, 2024 8:44pm loratadine 10 mg oral tablet (8 sources) Start: 04-22-2017 End: 06-27-2023 loratadine (CLARITIN) 10 mg tablet lurasidone hydrochloride 20 mg oral tablet (20 sources) Atypical Antipsychotic Start: 11-20-2021 End: 07-21-2023 take 1 tablet by mouth at bedtime Lurasidone (Latuda) 20 mg Tablet Discontinued 120 mg PO AT BEDTIME November 20, 2021 1:00am July 21, 2023 2:35am depression Comment on above: Take 20 mg by mouth. MEDICATION, NON-DATABASE (1 source) End: 02-08-2023 MEDICATION, NON-DATABASE Takes a medication for sleep, pt unsure of name 0 02/08/2023 Discontinued Comment on above: Takes a medication f or sleep, pt unsure of name 24 hr metFORMIN hydrochloride 500 mg extended release oral tablet (11 sources) Biguanide Start: 12-16-2024 End: 04-11-2025 take 1 tablet by mouth every hour metFORMIN ER (GLUCOPHAGE XR) 500 mg 24 hr tablet Take 1 tablet by mouth every afternoon. 12/16/2024 04/11/2025 Discontinued omeprazole 20 mg delayed release oral capsule (20 sources) Proton Pump Inhibitor Start: 05-29-2023 End: 01-21-2025 take 1 capsule by mouth once daily omeprazole (PRILOSEC) 20 mg capsule Take 1 capsule by mouth once daily. 30 capsule 1 05/29/2023 01/21/2025 Discontinued Comment on above: Take 1 capsule by [facility] once daily. ondansetron 4 mg disintegrating oral tablet (20 sources) Serotonin-3 Receptor Antagonist Start: 11-08-2022 take 4 mg by mouth every eight hours as needed Ondansetron Active 4 MG PO EVERY 8 HOURS NEEDED November 08, 2022 12:00am Start: 10-05-2022 End: 08-17-2023 take 1 tablet by mouth every six hours as needed for nausea and vomiting Ondansetron 4 mg tablet,disintegrating Discontinued 4 mg PO EVERY 6 HOURS as needed for nausea and vomiting June 03, 2023 12:00am August 17, 2023 6:51pm phenazopyridine hydrochloride 200 mg oral tablet (1 source) Start: 11-30-2024 End: 06-21-2025 take 1 tablet by mouth three times daily Phenazopyridine (Pyridium) 200 mg tablet Discontinued 200 mg PO THREE TIMES A DAY November 30, 2024 1:00am June 21, 2025 6:51pm PNV Comb No.06-Rwoc-Bvgjq Acid (PRENATABS FA) 29-1 mg tab (20 sources) Start: 08-20-2021 End: 11-30-2024 PNV Comb No.29-Lruy-Fkgmk Acid (PRENATABS FA) 29-1 mg tab Take by mouth. 08/20/2021 11/30/2024 Discontinued Start: 08-20-2021 PNV Comb No.78 -Iron-Folic Acid (PRENATABS FA) 29-1 mg tab Take by mouth. 08/20/2021 Active Start: 08-20-2021 PNV Comb No.78 -Iron-Folic Acid (PRENATABS FA) 29-1 mg tab Take by mouth. 0 08/20/2021 Active Comment on above: Take by mouth. polyethylene glycol 3350 91657 mg powder for oral solution (5 sources) Osmotic Laxative Start: 04-29-20 25 End: 06-03-20 25 polyethylene glycol 3350 17 gram packet Take 1 packet by mouth once daily. Dissolve dose in 4 - 8 ounces of liquid and take as directed. 24 packet 04/29/2025 06/03/2025 Discontinued (Other) Dobccxvc-Bpu-Yi-Fa 1 mg Tablet (1 source) Start: 05-04-20 End: 11-30-20 take 1 tablet by mouth once daily Lhsxpuue-Jrl-Lq-Fa 1 mg Tablet Discontinued 1 {tbl} PO DAILY May 04, 2023 12:00am November 30, 2024 8:44pm semaglutide, weight loss, (WEGOVY) 0.25 mg/0.5 mL pen injector (3 sources) End: 01-21-20 inject 0.25 mg by subcutaneous injection every week semaglutide, weight loss, (WEGOVY) 0.25 mg/0.5 mL pen injector Inject 0.25 mg subcutaneously one time a week. 01/21/2025 Discontinued inject 0.25 mg by negron bcutaneous injection every week semaglutide, weight loss, (WEGOVY) 0.25 mg/0.5 mL pen injector Inject 0.25 mg subcutaneously one time a week. Active 24 hr venlafaxine 150 mg extended release oral capsule (1 source) Serotonin and Norepinephrine Reuptake Inhibitor End: 02-08-2023 take 1 capsule by mouth once daily venlafaxine XR (EFFEXOR XR) 150 mg 24 hr capsule Take 150 mg by mouth once daily. 0 02/08/2023 Discontinued Comment on above: Take 150 mg by mouth once daily. ziprasidone (1 source) Atypical Antipsychotic End: 02-08-2023 ZIPRASIDONE HCL (GEODON ORAL) Take by mouth. 0 02/08/2023 Discontinued Comment on above: Take by mouth. Problems Active Problems Problem Classification Problem Date Documented Date Episodic/Chronic Abdominal pain (20 sources) Left lower quadrant pain; Translations: [Abdominal pain] Onset: Episodic Comment on above: 26-year-old female w ho status post laparoscopic cholecystectomy with intraoperative cholangiogram on 09/23/2022. Procedure originally proceeded in uncomplicated fashion, but patient complained of progressive abdominal pain and nausea and required 2 postoperative visits with the last being 10/04/2022. Symptomatically she had improved by that time and we had a interval CT of the abdomen pelvis showing a right-sided kidney stone that was nearing passage into the bladder. Patient confirms that this stone passed and she had transient relief of her symptoms, but then the symptoms did return and this led to an interval ER visit on 10/21/2022. At that visit laboratories were obtained and were all reassuring. With the recency of her CT ordered by surgery, emergency medicine did not deem it necessary to repeat any imaging and recommended follow-up with me. Today patient complains of ongoing right upper quadrant, postprandial discomfort and is associated with nausea, intermittent vomiting, and intermittent diarrhea. 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 Therefore, I am also suspicious of possible peptic ulcer versus gastritis versus GERD. Given the significant negative impact this has had on patient's livelihood including loss of her job I am inclined to pursue both diagnoses in tandem and have prescribed omeprazole 20 mg daily as well as cholestyramine 2 mg twice daily. I have shared with patient that I would also like to pursue a EGD with biopsy as necessary given the severity of her symptoms. I did review patient's prior CT imaging with her in detail as well as her procedure time cholangiogram. Both of these imaging studies are reassuring against a postoperative bile leak. Administrative/social admission (20 sources) Patient encounter status; Translations: [Persons encountering health services in other specified circumstances] Episodic Allergic reactions (1 source) Allergic reaction; Translations: [Allergy, unspecified, initial encounter] 08-18-2024 Episodic Anxiety disorders (20 sources) Anxiety disorder, unspecified; Translations: [Anxiety state, unspecified] Onset: 5 Chronic Asthma (8 sources) Unspecified asthma, uncomplicated; Translations: [Asthma] Onset: 1 10-10-2023 Chronic Bacterial infection; unspecified site (3 sources) Bacteria present; Translations: [Streptococcus, group B, as the cause of diseases classified elsewhere] 10-15-2023 Episodic Biliary tract disease (20 sources) Biliary calculus; Translations: [Calculus of gallbladder with chronic cholecystitis without obstruction] Episodic Calculus of urinary tract (1 source) Kidney stone; Translations: [Calculus of kidney] 12-08-2024 Episodic Diabetes mellitus without complication (13 sources) Abnormal glucose tolerance test; Translations: [Other abnormal glucose] Onset: 5 06-03-2025 Episodic E Codes: Fall (7 sources) Fall; Translations: [Unspecified fall, initial encounter] 05-04-2023 Episodic Early or threatened labor (20 sources) False labor; Translations: [False labor, unspecified] Episodic Gastrointestinal hemorrhage (12 sources) Hematemesis; Translations: [Hematemesis] 11-16-2022 Episodic Genitourinary symptoms and ill-defined conditions (9 sources) Dysuria; Translations: [Dysuria] Onset: 5 Episodic Gout and other crystal arthropathies (9 sources) Acute gout; Translations: [Gout, unspecified] 04-14-2023 Chronic Hemorrhage during ; abruptio placenta; placenta previa (20 sources) Threatened miscarriage; Translations: [Threatened ] Episodic Immunizations and screening for infectious disease (1 source) Vaccination needed; Translations: [Encounter for immunization] 08-02-2023 Episodic Mood disorders (7 sources) Bipolar disorder; Translations: [Bipolar disorder, unspecified] Onset: 5 10-10-2023 Chronic Comment on above: ON MED Mood disorders (1 source) Mood disorders; Translations: [Depression affecting ] Onset: 5 Nausea and vomiting (20 sources) Nausea and vomiting; Translations: [Nausea with vomiting, unspecified] 10-29-2022 Episodic Noninfectious gastroenteritis (1 source) Gastroenteritis; Translations: [Noninfective gastroenteritis and colitis, unspecified] Episodic Nutritional deficiencies (4 sources) Vitamin D deficiency, unspecified; Translations: [Unspecified vitamin D deficiency] Chronic Other complications of (20 sources) Maternal obesity complicating , childbirth and the puerperium, antepartum; Translations: [Obesity complicating , unspecified trimester] Onset: 3 03-25-2023 Chronic Other complications of (7 sources) Obesity complicating , third trimester; Translations: [Obesity complicating , childbirth, or the puerperium, antepartum condition or complication] Onset: 5 08-02-2023 Chronic Other complications of (19 sources) Anemia in mother complicating , childbirth AND/OR puerperium; Translations: [Anemia complicating , second trimester] Onset: 5 05-06-2025 Chronic Other complications of (1 source) Anemia complicating , third trimester; Translations: [Anemia complicating , third trimester (HCC)] Onset: 5 Chronic Other complications of (1 source) Obesity complicating , second trimester; Translations: [Obesity affecting in second trimester, unspecified obesity type (HCC)] Onset: 5 Chronic Other complications of (1 source) Anemia complicating , second trimester; Translations: [Anemia complicating , second trimester (HCC)] Onset: 5 Chronic Other complications of (2 sources) Obesity complicating , first trimester; Translations: [Obesity affecting in first trimester, unspecified obesity type (HCC)] Onset: 5 Chronic Other complications of (20 sources) Headache; Translations: [Other specified related conditions, unspecified trimester] 2022 Episodic Other complications of (11 sources) Other specified related conditions, unspecified trimester; Translations: [Other specified complications of , unspecified as to episode of care or not applicable] Onset: 5 Episodic Other complications of (1 source) ; Translations: [ with inconclusive viability, not applicable or unspecified] Episodic Other complications of (20 sources) High risk ; Translations: [Supervision of other high risk pregnancies, first trimester] Onset: 3 Episodic Other complications of (1 source) Cramp in lower limb; Translations: [Leg cramps in ] 06-27-2023 Episodic Other complications of (1 source) Prurigo of ; Translations: [Diseases of the skin and subcutaneous tissue complicating , second trimester] 07-11-2023 Episodic Other complications of (1 source) Abdominal pain in ; Translations: [Other specified related conditions, second trimester] 07-11-2023 Episodic Other complications of (1 source) Vaginal discharge; Translations: [Other specified related conditions, second trimester] 07-11-2023 Episodic Other complications of (1 source) Gestational proteinuria; Translations: [Gestational proteinuria, second trimester] 07-11-2023 Episodic Other complications of (6 sources) Uterine contractions problem; Translations: [Other specified related conditions, unspecified trimester] 07-21-2023 Episodic Other complications of (1 source) Supervision of other high risk pregnancies, third trimester; Translations: [Supervision of other high-risk ] 10-17-2023 Episodic Other complications of (3 sources) Unspecified infection of urinary tract in , unspecified trimester; Translations: [Infections of genitourinary tract in , unspecified as to episode of care or not applicable] Onset: 5 10-17-2023 Episodic Other complications of (3 sources) Depressive disorder in mother complicating ; Translations: [Other mental disorders complicating , unspecified trimester] 01-21-2025 Episodic Other complications of (6 sources) Anxiety in ; Translations: [Other mental disorders complicating , unspecified trimester] Onset: 5 01-21-2025 Episodic Other complications of (20 sources) Pyelonephritis in ; Translations: [Infections of kidney in , unspecified trimester] Onset: 5 04-14-2025 Episodic Other complications of (17 sources) Back pain complicating ; Translations: [Back pain affecting ] Onset: 5 04-26-2025 Episodic Other complications of (1 source) Infections of kidney in , second trimester; Translations: [Pyelonephritis affecting in second trimester (HCC)] Onset: Episodic Other complications of (2 sources) Infections of kidney in , unspecified trimester; Translations: [Pyelonephritis complicating , antepartum (HCC)] Onset: 5 Episodic Other complications of (17 sources) Pruritus of ; Translations: [Diseases of the skin and subcutaneous tissue complicating , second trimester] Onset: 5 05-06-2025 Episodic Other complications of (2 sources) Reduced movement; Translations: [Decreased movements, third trimester, not applicable or unspecified] 06-16-2025 Episodic Other complications of (1 source) Decreased movements, third trimester, not applicable or unspecified; Translations: [Decreased movements in third trimester, single or unspecified fetus (HCC)] Onset: Episodic Other complications of (1 source) Supervision of high risk , unspecified, third trimester; Translations: [Supervision of high risk in third trimester (HCC)] Onset: 07-21-202 5 Episodic Other complications of (3 sources) Supervision of high risk , unspecified, second trimester; Translations: [Encounter for supervision of high risk in second trimester, antepartum (HCC)] Onset: 5 Episodic Other complications of (1 source) Endocrine, nutritional and metabolic diseases complicating , second trimester; Translations: [Hypothyroidism affecting in second trimester ([facility])] Onset: 5 Episodic Other complications of (1 source) Diseases of the skin and subcutaneous tissue complicating , second trimester; Translations: [Pruritus of in second trimester ([facility])] Onset: 5 Episodic Other connective tissue disease (4 sources) Other symptoms and signs involving the nervous system; Translations: [Other symptoms involving nervous and musculoskeletal systems] Episodic Other endocrine disorders (1 source) Polycystic ovarian syndrome; Translations: [Polycystic ovarian syndrome] Onset: 1 Chronic Other endocrine disorders (20 sources) Polycystic ovary syndrome; Translations: [Polycystic ovarian syndrome] 01-21-2025 Chronic Other female genital disorders (1 source) Burning sensation of vagina; Translations: [Unspecified condition associated with female genital organs and menstrual cycle] 07-11-2023 Episodic Other female genital disorders (1 source) History of gynecological disorder; Translations: [Personal history of other diseases of the female genital tract] 12-23-2024 Episodic Other gastrointestinal disorders (12 sources) Diarrhea; Translations: [Diarrhea, unspecified] 11-02-2022 Episodic Other gastrointestinal disorders (2 sources) Diarrhea, unspecified; Translations: [Diarrhea] Episodic Other inflammatory condition of skin (2 sources) Pruritus, unspecified; Translations: [Unspecified pruritic disorder] Onset: 5 07-11-2023 Episodic Other inflammatory condition of skin (1 source) Generalized pruritus ; Translations: [Pruritus, unspecified] 07-23-2023 Episodic Other injuries and conditions due to external causes (7 sources) Closed injury of head; Translations: [Unspecified injury of head, initial encounter] 05-04-2023 Episodic Other liver diseases (4 sources) Fatty (change of) liver, not elsewhere classified; Translations: [Other chronic nonalcoholic liver disease] Chronic Other lower respiratory disease (2 sources) Cough; Translations: [Acute cough] 03-25-2024 Episodic Other nutritional; endocrine; and metabolic disorders (3 sources) Body mass index 40+ - severely obese; Translations: [Body mass index (BMI) 40.0-44.9, adult] Chronic Other nutritional; endocrine; and metabolic disorders (2 sources) Body mass index 30+ - obesity; Translations: [Body mass index (BMI) 39.0-39.9, adult] 08-02-2023 Chronic Other nutritional; endocrine; and metabolic disorders (2 sources) Obesity; Translations: [Obesity, unspecified] 10-15-2023 Chronic Other nutritional; endocrine; and metabolic disorders (1 source) Obesity, unspecified; Translations: [Obesity, unspecified] 10-17-2023 Chronic Other screening for suspected conditions (not mental disorders or infectious disease) (15 sources) No liquor observed vaginally ; Translations: [Encounter for suspected problem with amniotic cavity and membrane ruled out] Onset: 5 09-22-2023 Episodic Other upper respiratory infections (2 sources) Acute upper respiratory infection; Translations: [Acute upper respiratory infection, unspecified] 03-25-2024 Episodic Personality disorders (20 sources) Borderline personality disorder; Translations: [Borderline personality disorder] Onset: 5 01-21-2025 Chronic Polyhydramnios and other problems of amniotic cavity (20 sources) Amniotic fluid leaking; Translations: [Premature rupture of membranes, unspecified as to length of time between rupture and onset of labor, unspecified weeks of gestation] Episodic Residual codes; unclassified (16 sources) Acquired absence of other specified parts of digestive tract; Translations: [Other acquired absence of organ] Episodic Residual codes; unclassified (4 sources) Immunization not carried out because of patient refusal; Translations: [Vaccination not carried out because of patient refusal] Episodic Residual codes; unclassified (3 sources) Gestation period, 13 weeks; Translations: [13 weeks gestation of ] 06-07-2023 Episodic Residual codes; unclassified (1 source) Gestation period, 22 weeks; Translations: [22 weeks gestation of ] 06-27-2023 Episodic Residual codes; unclassified (5 sources) Gestation period, 24 weeks; Translations: [24 weeks gestation of ] 07-11-2023 Episodic Residual codes; unclassified (6 sources) Gestation period, 25 weeks; Translations: [25 weeks gestation of ] 07-23-2023 Episodic Residual codes; unclassified (1 source) Gestation period, 27 weeks; Translations: [27 weeks gestation of ] 08-02-2023 Episodic Residual codes; unclassified (4 sources) 25 weeks gestation of ; Translations: [ state, incidental] 07-21-2023 Episodic Residual codes; unclassified (2 sources) Gestation period, 33 weeks; Translations: [33 weeks gestation of ] 09-11-2023 Episodic Residual codes; unclassified (4 sources) Gestation period, 29 weeks; Translations: [29 weeks gestation of ] 08-18-2023 Episodic Residual codes; unclassified (3 sources) 29 weeks gestation of ; Translations: [ state, incidental] 08-17-2023 Episodic Residual codes; unclassified (5 sources) Gestation period, 34 weeks; Translations: [34 weeks gestation of ] 09-23-2023 Episodic Residual codes; unclassified (1 source) Gestation period, 35 weeks; Translations: [35 weeks gestation of ] 10-01-2023 Episodic Residual codes; unclassified (2 sources) Gestation period, 36 weeks; Translations: [36 weeks gestation of ] 10-04-2023 Episodic Residual codes; unclassified (3 sources) Gestation period, 37 weeks; Translations: [37 weeks gestation of ] 10-10-2023 Episodic Residual codes; unclassified (3 sources) 34 weeks gestation of ; Translations: [ state, incidental] Onset: 09-22-2023 Episodic Residual codes; unclassified (3 sources) 37 weeks gestation of ; Translations: [ state, incidental] 10-10-2023 Episodic Residual codes; unclassified (1 source) Gestation period, 17 weeks; Translations: [17 weeks gestation of ] 03-16-2025 Episodic Residual codes; unclassified (1 source) Gestation period, 21 weeks; Translations: [21 weeks gestation of ] 04-14-2025 Episodic Residual codes; unclassified (1 source) Gestation period, 23 weeks; Translations: [23 weeks gestation of ] Onset: 04-25-2025 Episodic Residual codes; unclassified (1 source) Gestation period, 28 weeks; Translations: [28 weeks gestation of ] 06-03-2025 Episodic Residual codes; unclassified (1 source) Gestation period, 30 weeks; Translations: [30 weeks gestation of ] 06-16-2025 Episodic Residual codes; unclassified (3 sources) Gestation period, 31 weeks; Translations: [31 weeks gestation of ] 06-21-2025 Episodic Residual codes; unclassified (2 sources) 31 weeks gestation of ; Translations: [31 weeks gestation of ] Onset: Episodic Residual codes; unclassified (3 sources) Gestation period, 32 weeks; Translations: [32 weeks gestation of ] 07-02-2025 Episodic Residual codes; unclassified (1 source) 24 weeks gestation of ; Translations: [24 weeks gestation of (HCC)] Onset: 5 Episodic Residual codes; unclassified (1 source) 33 weeks gestation of ; Translations: [33 weeks gestation of (HCC)] Onset: Episodic Residual codes; unclassified (1 source) 32 weeks gestation of ; Translations: [32 weeks gestation of (HCC)] Onset: 5 Episodic Residual codes; unclassified (1 source) 30 weeks gestation of ; Translations: [30 weeks gestation of (HCC)] Onset: 5 Episodic Residual codes; unclassified (1 source) 28 weeks gestation of ; Translations: [28 weeks gestation of (HCC)] Onset: 5 Episodic Substance-related disorders (18 sources) Nicotine dependence, cigarettes, uncomplicated; Translations: [Nicotine dependence, unspecified, uncomplicated] Onset: 1 04-25-2025 Chronic Superficial injury; contusion (7 sources) Contusion of trunk; Translations: [Contusion of abdominal wall, initial encounter] 05-04-2023 Episodic Thyroid disorders (3 sources) Hypothyroidism, unspecified; Translations: [Hypothyroidism affecting in second trimester (HCC)] Onset: 5 Chronic Unclassified (2 sources) Spontaneous rupture of membranes; Translations: [Spontaneous rupture of amniotic membranes] 10-15-2023 Unclassified (20 sources) [facility] Education - [facility]ON Onset: 5 01-21-2025 Unclassified (20 sources) Education - [place] Onset: 5 01-21-2025 Unclassified (1 source) Care Onset: Past or Other Problems Problem Classification Problem Date Documented Da te Episodic/Chronic Conditions associated with dizziness or vertigo (20 sources) Dizziness; Translations: [Dizziness and giddiness] Onset: 01-21-2025 Resolved: 04-10-2025 11-30-2024 Episodic Other circulatory disease (18 sources) Elevated blood-pressure reading without diagnosis of hypertension; Translations: [Elevated blood-pressure reading, without diagnosis of hypertension] Onset: 04-10-2025 04-10-2025 Episodic Other complications of (20 sources) Dysuria; Translations: [Other specified related conditions, unspecified trimester] Onset: 03-25-2023 Resolved: 04-10-2025 03-25-2023 Episodic Other complications of (20 sources) Finding of pattern of ; Translations: [Supervision of other high risk pregnancies, unspecified trimester] Onset: 03-25-2023 03-25-2023 Episodic Other complications of (20 sources) Urinary tract infection in ; Translations: [Unspecified infection of urinary tract in , third trimester] Onset: 01-21-2025 09-23-2023 Episodic Other complications of (11 sources) Group B Streptococcus carrier; Translations: [Streptococcus B carrier state complicating ] Onset: 10-03-2023 10-03-2023 Episodic Other complications of (20 sources) Hypothyroidism in ; Translations: [Endocrine, nutritional and metabolic diseases complicating , first trimester] Onset: 01-21-2025 01-21-2025 Episodic Other complications of (20 sources) Vomiting of , unspecified; Translations: [Unspecified vomiting of , unspecified as to episode of care or not applicable] Onset: 01-21-2025 Resolved: 04-10-2025 01-21-2025 Episodic Other complications of (20 sources) Rubella non-immune; Translations: [Supervision of other high risk pregnancies, unspecified trimester] Onset: 03-16-2025 03-16-2025 Episodic Other complications of (20 sources) Other mental disorders complicating , unspecified trimester; Translations: [Mental disorders of mother, antepartum condition or complication] Onset: 01-21-2025 03-16-2025 Episodic Other complications of (2 sources) Supervision of high risk , unspecified, first trimester; Translations: [Encounter for supervision of high risk in first trimester, antepartum (HCC)] Onset: 01-21-2025 Episodic Other complications of (2 sources) Endocrine, nutritional and metabolic diseases complicating , first trimester; Translations: [Hypothyroidism affecting in first trimester (HCC)] Onset: 01-21-2025 Episodic Other gastrointestinal disorders (20 sources) H/O: liver disease; Translations: [Personal history of other diseases of the digestive system] Onset: 03-25-2023 03-25-2023 Episodic Other injuries and conditions due to external causes (20 sources) H/O: injury; Translations: [Personal history of other (healed) physical injury and trauma] Onset: 01-21-2025 01-21-2025 Episodic Other and delivery including normal (20 sources) First trimester ; Translations: [Encounter for supervision of normal , unspecified, first trimester] Onset: 03-25-2023 Episodic Residual codes; unclassified (20 sources) H/O: depression; Translations: [Personal history of other complications of , childbirth and the puerperium] Onset: 03-25-2023 03-25-2023 Episodic Residual codes; unclassified (20 sources) FH: Congenital anomaly; Translations: [Family history of other congenital malformations, deformations and chromosomal abnormalities] Onset: 03-25-2023 03-25-2023 Episodic Residual codes; unclassified (2 sources) Personal history of other complications of , childbirth and the puerperium; Translations: [Personal history of other genital system and obstetric disorders] Onset: 01-21-2025 10-17-2023 Episodic Residual codes; unclassified (20 sources) H/O: miscarriage; Translations: [Personal history of other complications of , childbirth and the puerperium] Onset: 01-21-2025 01-21-2025 Episodic Residual codes; unclassified (20 sources) Gestation period, 20 weeks; Translations: [20 weeks gestation of ] Onset: 04-10-2025 Resolved: 04-24-2025 04-08-2025 Episodic Residual codes; unclassified (1 source) 21 weeks gestation of ; Translations: [21 weeks gestation of ([facility])] Onset: 04-14-2025 Episodic Residual codes; unclassified (1 source) 20 weeks gestation of ; Translations: [20 weeks gestation of (HCC)] Onset: 04-08-2025 Episodic Residual codes; unclassified (1 source) 13 weeks gestation of ; Translations: [13 weeks gestation of ] Onset: 02-16-2025 Episodic Residual codes; unclassified (1 source) Family history of other congenital malformations, deformations and chromosomal abnormalities; Translations: [Family history of defect] Onset: 03-25-2023 Episodic Screening and history of mental health and substance abuse codes (1 source) Personal history of other mental and behavioral disorders; Translations: [History of depression] Onset: 03-25-2023 Episodic Short gestation; low weight; and growth retardation (17 sources) Prematurity of ; Translations: [ , unspecified weeks of gestation] Onset: 04-24-2025 Resolved: 04-25-2025 04-25-2025 Episodic Unclassified (19 sources) Planned procedure; Translations: [Elective induction of labor planned] 03-13-2022 Urinary tract infections (20 sources) Urinary tract infectious disease; Translations: [Urinary tract infection, site not specified] Onset: 01-13-2025 11-16-2022 Episodic Results Test Name Value Interpretation Reference Range Facility T4 Free SerPl-mCncon 025 Free T4 [Mass/Vol] 0.8 ng/dL Low 0.9-1.7 [facility] Comment on above: Order Comment: George grimes Type: BLOOD SPECIMEN Ordering Facility: [facility] [place] Address: [address] [place] [address] Performed By: #### 3 024-7, 3016-3 #### [facility] CLIA [id number] [address] [place] [address] [place] TSH SerPl-aCncon 07-20-2025 TSH Qn 5.160 m[IU]/L High 0.270-4.200 [facility] Comment on above: Order Comment: George grimes Type: BLOOD SPECIMEN Ordering Facility: [facility] [place] Address: [address], [place] [address] Result Comment: If t he patient is , TSH reference range varies by gestational period: First Trimester (weeks 9-12): 0.180-2.990 mIU/L Second Trimester: 0.110-3.980 mIU/L Third Trimester: 0.480-4.710 mIU/L Tonny Isaac et al. A Practical Approach for the Verifications and Determination of Site- and Trimester-Specific Reference Intervals for Thyroid Function tests in . Thyroid, 2019:29:3:412-420. Ronak Child, et al. 2017 Guidelines of the [place] [employer] for the Diagnosis and Management of Thyroid Disease during and the . Thyroid, 2017:27:3:315-389. Performed By: #### 3 024-7, 3016-3 #### [facility] CLIA [id number] [address] [place] [address] [facility] Adrienne 07-15-2025 CNPN Telephone (OBGYWM) YOKASTA PRETTY ([id number]) 1995 F Date Time Provider Department 07/15/25 AMBERLY SANCHEZ During your visit today, we recorded the following information about you: Funmilayo Panchal RN 07/15/2025 4:15 PM Signed [id number] Left message for patient to call office. Funmilayo Panchal RN Result Note Patient should stop the macrobid as developing UTI on it. Recommend bid bactrim for 1 week. Amberly Sanchez MD BACTERIAL CULTURE, URINE Allergies As of Date: 07/15/2025 Noted Allergy Reaction ABILIFY (ARIPIPRAZOLE) 03/05/2016 4 - Hives Date Reviewed: 07/13/2025 Reviewed by: Michelle Florian MA - Fully Assessed Reason for Visit: Results [95] Prescriptions as of 07/16/2025 - sulfamethoxazole-trime thoprim (BACTRIM DS) 800-160 mg per tablet Take 1 tablet by mouth two times a day. - cyclobenzaprine (FLEXERIL) 10 mg tablet Take 1 tablet by mouth three times a day as needed for pain. - levothyroxine (SYNTHROID) 125 mcg tablet Take 1 tablet by mouth once daily. - ferrous sulfate (IRON) 325 mg (65 mg iron) tablet Take 1 tablet by mouth every other day. - acetaminophen (TYLENOL) 500 mg tablet Take 2 tablets by mouth every 6 hours as needed for pain. - aspirin, enteric coated (ECOTRIN LOW STRENGTH) 81 mg EC tablet Take 1 tablet by mouth once daily. - vits62/FA/om3/dha/epa ( GUMMY ORAL) Take 1 Piece by mouth once daily. - Cholecalciferol, Vitamin D3, 125 mcg (5,000 unit) cap 5,000 Units once daily. - acetaminophen (TYLENOL) 500 mg tablet Take by mouth. Problem List As Of Date 07/15/2025 Noted Resolved History of depression [Z87.59, Z86.5*03/25/2023 History of depression [Z86.59] 03/25/2023 History of fatty infiltration of liver [Z87.19] 03/25/2023 Obesity affecting in second trimester*03/25/2023 Family history of defect [Z82.79] 03/25/2023 Anxiety disorder affecting , antepartu*01/21/2025 Hypothyroidism affecting in second tr*01/21/2025 History of trauma [Z87.828] 01/21/2025 Borderline personality disorder (HCC) [F60.3] 01/21/2025 PCOS (polycystic ovarian syndrome) [E28.2] Nausea and vomiting during (HCC) [O21*01/21/2025 04/10/2025 PTSD (post-traumatic stress disorder) [F43.10] 01/21/2025 Dizziness [R42] 01/21/2025 04/10/2025 History of miscarriage [Z87.59] 01/21/2025 UTI (urinary tract infection) in , ant*01/21/2025 Rubella non-immune status, antepartum (HCC) [O0*03/16/2025 Dysuria in (HCC) [O26.899, R30.0] 04/09/2025 04/10/2025 Pyelonephritis complicating , antepart*04/09/2025 20 weeks gestation of (HCC) [Z3A.20] 04/10/2025 04/24/2025 Elevated blood pressure reading in office witho*04/10/2025 Pyelonephritis affecting ([facility]) [O23.0*04/24/2025 Prematurity of fetus ([facility]) [P07.30] 04/24/2025 04/25/2025 Flank pain with history of urolithiasis [R10.9,*04/25/2025 Nicotine use disorder, F17.2 [F17.200] 04/25/2025 Back pain affecting ([facility]) [O99.891, M*04/26/2025 Encounter for supervision of high risk pregnanc*05/06/2025 Anemia complicating , second trimester*05/06/2025 Pruritus of in second trimester (HCC)*05/06/2025 Elevated glucose tolerance test [R73.09] 06/03/2025 Encounter Status:Closed by FUNMILAYO PANCHAL on 07/16/25 [facility] Bacteria identified Cx Nom (U) ORGANISM ID: 1 >=100,000 CFU/ml Staphylococcus aureus ORGANISM ID: 1 (STAPHYLOCOCCUS AUREUS) -- ANTIBIOTIC INTERPRETATION SHIVANI STATUS REFERENCE RANGE -- Oxacillin S 0.5 F Susceptible <=2 , Resistant >2 Oxacillin-susceptible staphylococci are susceptible to other penicilllinase-stable penicillins, beta-lactam/beta-lacta nicolas inhibitor combinations, anti-staphylococcal cephems, and carbapenems. Trimeth sulfameth S <=10 F Susceptible <=40 , Resistant >40 Vancomycin S <=0.5 F Susceptible <=2 , Intermediate >2 , Resistant >8 Rifampin S <=0.5 F Susceptible <=1 , Intermediate >1 , Resistant >2 Rifampin should not be used alone for antimicrobial therapy. Tetracycline S <=1 F Susceptible <=4 , Intermediate >4 , Resistant >8 Doxycycline S <=0.5 F Susceptible <=4 , Intermediate >4 , Resistant >8 Nitrofurantoin S <=16 F Susceptible <=32 , Intermediate >32 , Resistant >64 Abnormal [facility] Comment on above: Performed By: #### 6 30-4 ####[facility] LABCLIA [id number] [address] [place] Examination level ultrasound on 07-02-2025 [facility] Radiology Study observation (narrative) [facility] Absolute lymphocyte countOrd ered By: Noam Wyman on 06-21-2025 Lymphocytes Auto (Unsp spec) [#/Vol] 1.25 10*3/uL 0.83-4.51 [facility] Absolute neutrophil countOrd ered By: Noam Wyman on 06-21-2025 Neutrophils (Bld) [#/Vol] 7.7 10*3/uL 2.0-7.7 [facility] Automated lymphocyte count a s percentage of total leukocytesOrdered By: Noam Wyman on 06-21-2025 Lymphocytes/100 WBC Auto (Unsp spec) 12.8 % Low 19-41 [facility] Bacteria Ur Culton Bacteria identified Cx Nom (U) ORGANISM ID: 1 >=100,000 CFU/ml Staphylococcus aureus ORGANISM ID: 1 (STAPHYLOCOCCUS AUREUS) -- ANTIBIOTIC INTERPRETATION SHIVANI STATUS REFERENCE RANGE -- Oxacillin S 0.5 F Susceptible <=2 , Resistant >2 Oxacillin-susceptible staphylococci are susceptible to other penicilllinase-stable penicillins, beta-lactam/beta-lacta nicolas inhibitor combinations, anti-staphylococcal cephems, and carbapenems. Trimeth sulfameth S <=10 F Susceptible <=40 , Resistant >40 Vancomycin S 1 F Susceptible <=2 , Intermediate >2 , Resistant >8 Rifampin S <=0.5 F Susceptible <=1 , Intermediate >1 , Resistant >2 Rifampin should not be used alone for antimicrobial therapy. Tetracycline S <=1 F Susceptible <=4 , Intermediate >4 , Resistant >8 Doxycycline S <=0.5 F Susceptible <=4 , Intermediate >4 , Resistant >8 Nitrofurantoin S <=16 F Susceptible <=32 , Intermediate >32 , Resistant >64 Abnormal [facility] Comment on above: Performed By: #### 6 30-4 ####[facility] LABCLIA [id number] [place] [address] [place] Basophil percentageOrdered B y: Noam Wyman on 06-21-2025 Basophils/100 WBC (Bld) 0.2 % 0-1 [facility] CBC W/Diff, Automatedon 06-02 Absolute Lymph 1.25 X10 3/uL Normal 0.83-4.51 [facility] Comment on above: Performed By: #### L 500.4050, L700.6800, L100.0100 #### [facility] Laboratory [address] [place], [address] Absolute Neut 7.7 X10 3/uL Normal 2.0-7.7 [facility] Comment on above: Performed By: #### L 500.4050, L700.6800, L100.0100 #### [facility] [address] [place], [address] Basophils/100 WBC (Bld) 0.2 % Normal 0-1 [facility] Comment on above: Performed By: #### L 500.4050, L700.6800, L100.0100 #### [facility] [address] [place], [address] Eosinophils/100 WBC (Bld) 0.5 % Normal 0-5 [facility] Comment on above: Performed By: #### L 500.4050, L700.6800, L100.0100 #### [facility] [address] [place], [address] Erythrocyte distribution width (RBC) [Ratio] 15.9 % High 11.6-14.6 [facility] Comment on above: Performed By: #### L 500.4050, L700.6800, L100.0100 #### [facility] [address] [place], [address] Hematocrit (Bld) [Volume fraction] 30.6 % Low 37-47 [facility] Comment on above: Performed By: #### L 500.4050, L700.6800, L100.0100 #### [facility] [address] [place], [address] Hemoglobin (Bld) [Mass/Vol] 9.9 g/dL Low 12.0-15.0 [facility] Comment on above: Performed By: #### L 500.4050, L700.6800, L100.0100 #### [facility] [address] [place], [address] IG% 0.500 Normal 0.0-0.9 [facility] Comment on above: Result Comment: IG% - Immature Granulocytes (promyelocytes, myelocytes and metamyelocytes) > 1% indicates that a LEFT SHIFT is Present. Performed By: #### L 500.4050, L700.6800, L100.0100 #### [facility] [address] [place], [address] Lymphocytes/100 WBC (Bld) 12.8 % Low 19-41 [facility] Comment on above: Performed By: #### L 500.4050, L700.6800, L100.0100 #### [facility] [address] [place], [address] MCH (RBC) [Entitic mass] 27.0 pg Normal 27.0-32.0 [facility] Comment on above: Performed By: #### L 500.4050, L700.6800, L100.0100 #### [facility] [address] [place], [address] MCHC (RBC) [Mass/Vol] 32.4 g/dL Normal 32-36 [facility] Comment on above: Performed By: #### L 500.4050, L700.6800, L100.0100 #### [facility] [address] [place], [address] MCV (RBC) [Entitic vol] 83.6 fL Normal 81-99 [facility] Comment on above: Performed By: #### L 500.4050, L700.6800, L100.0100 #### [facility] [address] [place], [address] Monocytes/100 WBC (Bld) 6.6 % Normal 0-10 [facility] Comment on above: Performed By: #### L 500.4050, L700.6800, L100.0100 #### [facility] [address] [place], [address] Neutrophils/100 WBC (Bld) 79.4 % High 47-70 [facility] Comment on above: Performed By: #### L 500.4050, L700.6800, L100.0100 #### [facility] [address] [place], [address] Nucleated RBC (Bld) [#/Vol] 0 10*3/uL Normal 0-5 [facility] Comment on above: Performed By: #### L 500.4050, L700.6800, L100.0100 #### [facility] [address] [place], [address] Platelet mean volume (Bld) [Entitic vol] 9.9 fL Normal 6.2-12.0 [facility] Comment on above: Performed By: #### L 500.4050, L700.6800, L100.0100 #### [facility] [address] [place], [address] Platelets (Bld) [#/Vol] 362 10*3/uL Normal 150-450 [facility] Comment on above: Performed By: #### L 500.4050, L700.6800, L100.0100 #### [facility] [address] [place], [address] RBC (Bld) [#/Vol] 3.66 10*6/uL Low 4.2-5.4 [facility] Comment on above: Performed By: #### L 500.4050, L700.6800, L100.0100 #### [facility] [address] [place], [address] RDW SD 48.4 fl High 35.1-43.9 [facility] Comment on above: Performed By: #### L 500.4050, L700.6800, L100.0100 #### [facility] [address] [place], [address] WBC (Bld) [#/Vol] 9.8 10*3/uL Normal 4.4-11.0 [facility] Comment on above: Performed By: #### L 500.4050, L700.6800, L100.0100 #### [facility] [address] [place], [address] Eosinophil percentageOrdered By: Noam Wyman on 06-21-2025 Eosinophils/100 WBC (Bld) 0.5 % 0-5 [facility] Erythrocyte distribution wid th ratioOrdered By: Noam Wyman on 06-21-2025 Erythrocyte distribution width (RBC) [Ratio] 15.9 % High 11.6-14.6 [facility] Erythrocyte distribution wid th standard deviationOrdered By: Naom Wyman on 06-21-2025 Erythrocyte distribution width (RBC) [Ratio] 48.4 fl High 35.1-43.9 [facility] Hematocrit Auto (Bld) [Volum e fraction]Ordered By: Noamtad Wyman on 06-21-2025 Hematocrit (Bld) [Volume fraction] 30.6 % Low 37-47 [facility] Hemoglobin measurementOrdere d By: Noam Wyman on 06-21-2025 Hemoglobin (Bld) [Mass/Vol] 9.9 g/dL Low 12.0-15.0 [facility] Immature granulocytes/100 WB C Auto (Bld)Ordered By: Noam Wyman on 06-21-2025 Immature granulocytes/100 WBC (Bld) 0.500 % 0.0-0.9 [facility] Comment on above: IG% - Immature Granu locytes (promyelocytes, myelocytes and metamyelocytes) > 1% indicates that a LEFT SHIFT is Present. MCV (mean corpuscular volume ) determinationOrdered By: Noam Wyman on 06-21-2025 MCV (RBC) [Entitic vol] 83.6 fL 81-99 [facility] Mean corpuscular hemoglobin (MCH) determinationOrdered By: Noam Wyman on 06-21-2025 MCH (RBC) [Entitic mass] 27.0 pg 27.0-32.0 [facility] Mean corpuscular hemoglobin concentration (MCHC) determinationOrdered By: Noamtad Wyman on 06-21-2025 MCHC (RBC) [Mass/Vol] 32.4 g/dL 32-36 [facility] Mean platelet volume determi nationOrdered By: Noam Wyman on 06-21-2025 Platelet mean volume (Bld) [Entitic vol] 9.9 fL 6.2-12.0 [facility] Monocyte percentageOrdered B y: Noam Wyman on 06-21-2025 Monocytes/100 WBC (Bld) 6.6 % 0-10 [facility] Neutrophil percentageOrdered By: Noamtad Wyman on 06-21-2025 Neutrophils/100 WBC (Bld) 79.4 % High 47-70 [facility] Nucleated red blood cell per centageOrdered By: Noam Wyman on 06-21-2025 Nucleated RBC/100 WBC (Bld) [Ratio] 0 % 0-5 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 Patient to be observation status and to get 24 hours of IV antibiotics. Maternal Data Information CLAUDIO Calculator Estimated Delivery Date Method Current WG Current Estimate 08/22/25 Manual 31w 1d PFSH PFS Medical History Lactating mother Vaginal delivery Positive GBS test History of depression Short interval between pregnancies affecting in third trimester, antepartum Obesity UTI in SROM (spontaneous rupture of membranes) 37 weeks gestation of MRSA infection Trauma Thyroid disorder Liver disease depression Wears glasses Fatty liver Heartburn Gastric reflux Former smoker PCOS (polycystic ovarian syndrome) Injury of head and neck Migraines Cholecystitis with cholelithiasis Chest pain Spontaneous vaginal delivery Elective induction of labor planned Marginal placenta previa Asthma Bipolar disorder Anxiety Depression Home Medications ???Medication ???Instructions ???Recorded ???Last Taken ???Type albuterol 90 mcg/actuation aerosol 90 mcg inhalation Q6H PRN PRN Unknown History inhaler asthma acetaminophen 500 mg tablet 1,000 mg (2 x 500 mg) PO Q6H PRN 1 12/17/22 Unknown Rx PRN Pain 1-10 Or Fever #0 tabs phenazopyridine 200 mg tablet 200 mg PO TID 6 doses #6 tabs 11/03 Unknown Rx (Pyridium) sulfamethoxazole 800 1 tab PO BID #6 TABLETS 12/02/24 U nknown Rx mg-trimethoprim 160 mg tablet Allergy/AdvReac Type Severity Reaction Status Date / Time aripiprazole Allergy Hives Verified 11/30/24 16:36 Family History Father Anxiety Depression Mental disorder Suicide attempt Grandfather Cancer lung Grandmother Myocardial infarction CVA (cerebral vascular accident) Surgical History History of cholecystectomy Hx of tonsillectomy History of surgery Social History household members: family housing: house current occupational status: employed current occupation: [employer] sexually active: Yes Smoking Status: Current every day smoker tobacco type: e-cigarettes Electronic Cigarette Use: not used alcohol intake: current alcohol intake frequency: holidays/special occasions only substance use type: does not use what type of physical activity do you participate in: walking frequency: 5-6 times per week seatbelt use: always do you feel safe at home: Yes History 1 Elective abortions Hx Para 1 Spontaneous abortions Hx # Term Pregnancies Ectopic pregnancies Hx # Pregnancies Multiple births # of living children 1 ROS Eyes Eyes: Denies blurry vision Cardiovascular Cardiovascular: Reports none; Denies chest pain at rest, chest pain with activity or dizziness Respiratory/Chest Respiratory/Chest: Denies cough or dyspnea Gastrointestinal Gastrointestinal: Reports none and other; Denies diarrhea or vomiting Genitourinary Genitourinary: Reports as per HPI, low back pain and other Details: flank pain Musculoskeletal Musculoskeletal: Reports none Integumentary Integumentary: Reports none; Denies rash Neurologic Neurologic: Denies dizziness, headache(s) or other visual disturbances Psychiatric Psychiatric: Reports none Assessment Plan (1) 31 weeks gestation of : (2) Flank pain: (3) Recurrent UTI (urinary tract infection) complicating : PLAN: Plan Afebrile Start IV and run N/S at 100 mg/hour Start Ceftriaxone 1 gm IV every 24 hours Continuous monitoring 06/21/25 1715 Date Ari Blum CNM Cosigner Signature (if applicable): Date CC: SHANITA Blum; [facility] MACHINIST [employer] Nighat Munoz Signed Normal [facility] Platelet countOrdered By: Sa ra Wyman on 06-21-2025 Platelets (Bld) [#/Vol] 362 10*3/uL 150-450 [facility] RBC Auto (Bld) [#/Vol]Ordere d By: Noam Wyman on 06-21-2025 RBC (Bld) [#/Vol] 3.66 10*6/uL Low 4.2-5.4 [facility] UA DIP, URINE (POC)on 2024 BILIRUBIN UA (POCT) Negative Negative [facility] CLARITY UA (POCT) Cloudy [facility] COLOR UA (POCT) Dark yellow [facility] GLUCOSE UA (POCT) Negative Negative mg/dL [facility] Hemoglobin Ql (U) Moderate Abnormal Negative [facility] Interpretation and review of laboratory results Abnormal [facility] KETONE UA (POCT) Negative Negative mg/dL [facility] LEUKOCYTES UA (POCT) Large Abnormal Negative [facility] NITRITE UA (POCT) Positive Abnormal Negative [facility] PH UA (POCT) 6.5 4.5 - 8.0 [facility] Protein Ql (U) 100 mg/dL Abnormal Negative [facility] SPECIFIC GRAVITY UA (POCT) 1.025 1.005 - 1.030 [facility] UROBILINOGEN UA (POCT) 0.2 Normal E.U./d L [facility] Location:[facility], [address] [place] [address], [place], [place], [address] [place] [address] POINT OF CARE [facility] White blood cell (WBC) count Ordered By: oNam Wyman on 06-21-2025 WBC (Bld) [#/Vol] 9.8 10*3/uL 4.4-11.0 [facility] GLUCOSE GESTATIONAL, 1 HOURo n 06-08-2025 Glucose 1 Hr post Unsp challenge [Mass/Vol] 120 mg/dL Normal 74-179 [facility] Comment on above: Order Comment: George grimes Type: BLOOD SPECIMEN Ordering Facility: [facility] Address: [address] [place] [address] Result Comment: [facility] Congress of Obstetricians and Gynecologists (Yanick/Linda) guidelines state gestational diabetes mellitus is present when 2 or more of the plasma glucose concentrations meet or exceed the following levels: fastin mg/dl, 1 hr: 180 mg/dl, 2 hr: 155 mg/dl, and 3 hr: 140 mg/dl. Performed By: #### 2 4323-8 #### [facility] CLIA [id number] [address] [place] [address] [place] GLUCOSE GESTATIONAL, 2 HOURo n 06-08-2025 Glucose 2 Hr post Unsp challenge [Mass/Vol] 115 mg/dL Normal 74-154 [facility] Comment on above: Order Comment: George grimes Type: BLOOD SPECIMEN Ordering Facility: [facility] Address: [address] [place] [address] Result Comment: [facility] Congress of Obstetricians and Gynecologists (Yanick/Linda) guidelines state gestational diabetes mellitus is present when 2 or more of the plasma glucose concentrations meet or exceed the following levels: fastin mg/dl, 1 hr: 180 mg/dl, 2 hr: 155 mg/dl, and 3 hr: 140 mg/dl. Performed By: #### 3 024-7, 3016-3 #### [facility] CLIA [id number] [address] [place] [address] [place] GLUCOSE GESTATIONAL, 3 HOURo n 06-08-2025 Glucose 3 Hr post Unsp challenge [Mass/Vol] 102 mg/dL Normal 74-139 [facility] Comment on above: Order Comment: George grimes Type: BLOOD SPECIMEN Ordering Facility: [facility] Address: [address] [place] [address] Result Comment: [facility] Congress of Obstetricians and Gynecologists (Yanick/Linda) guidelines state gestational diabetes mellitus is present when 2 or more of the plasma glucose concentrations meet or exceed the following levels: fastin mg/dl, 1 hr: 180 mg/dl, 2 hr: 155 mg/dl, and 3 hr: 140 mg/dl. Performed By: #### 3 024-7, 3016-3 #### [facility] CLIA [id number] [address] [place] [address] [place] GLUCOSE GESTATIONAL, FASTING on 06-08-2025 Glucose post fast [Mass/Vol] 91 mg/dL Normal 74-94 [facility] Comment on above: Order Comment: George grimes Type: BLOOD SPECIMENOrdering Facility: [facility] Address: [address] [place] [address] Result Comment: [facility] Congress of Obstetricians and Gynecologists (Yanick/Linda) guidelines state gestational diabetes mellitus is present when 2 or more of the plasma glucose concentrations meet or exceed the following levels: fastin mg/dl, 1 hr: 180 mg/dl, 2 hr: 155 mg/dl, and 3 hr: 140 mg/dl. Performed By: #### G TGSTF ####[facility] [id number] [address] [place] CNPNon 06-07-2025 [facility] YOKASTA PRETTY ([id number]) 1995 F Date Time Provider Department 06/07/25 NURSE DRUM SANDER [facility] OGFVWE During your visit today, we recorded the following information about you: Katelynn Luciano RN 06/07/2025 10:00 AM Signed 3rd risk assessment form submitted 06/07/25 Katelynn Luciano RN Allergies As of Date: 06/07/2025 Noted Allergy Reaction ABILIFY (ARIPIPRAZOLE) 03/05/2016 4 - Hives Date Reviewed: 05/06/2025 Reviewed by: Judit Pimentel APRN.DROSSER - Fully Assessed Reason for Visit: PRAF [4193] Prescriptions as of 06/07/2025 - levothyroxine (SYNTHROID) 125 mcg tablet Take 1 tablet by mouth once daily. - ferrous sulfate (IRON) 325 mg (65 mg iron) tablet Take 1 tablet by mouth every other day. - acetaminophen (TYLENOL) 500 mg tablet Take 2 tablets by mouth every 6 hours as needed for pain. - nitrofurantoin monohydrate and macrocrystal (MACROBID) 100 mg capsule Take 1 capsule by mouth once daily. Take 1 capsule once daily for suppression / UTI prophylaxis for duration of Patient should start on May 09, 2026. - aspirin, enteric coated (ECOTRIN LOW STRENGTH) 81 mg EC tablet Take 1 tablet by mouth once daily. - vits62/FA/om3/dha/epa ( GUMMY ORAL) Take 1 Piece by mouth once daily. - Cholecalciferol, Vitamin D3, 125 mcg (5,000 unit) cap 5,000 Units once daily. - acetaminophen (TYLENOL) 500 mg tablet Take by mouth. Problem List As Of Date 06/07/2025 Noted Resolved History of depression [Z87.59, Z86.5*03/25/2023 History of depression [Z86.59] 03/25/2023 History of fatty infiltration of liver [Z87.19] 03/25/2023 Obesity affecting in second trimester*03/25/2023 Family history of defect [Z82.79] 03/25/2023 Anxiety disorder affecting , antepartu*01/21/2025 Hypothyroidism affecting in second tr*01/21/2025 History of trauma [Z87.828] 01/21/2025 Borderline personality disorder (HCC) [F60.3] 01/21/2025 PCOS (polycystic ovarian syndrome) [E28.2] Nausea and vomiting during (HCC) [O21*01/21/2025 04/10/2025 PTSD (post-traumatic stress disorder) [F43.10] 01/21/2025 Dizziness [R42] 01/21/2025 04/10/2025 History of miscarriage [Z87.59] 01/21/2025 UTI (urinary tract infection) in , ant*01/21/2025 Rubella non-immune status, antepartum (HCC) [O0*03/16/2025 Dysuria in (HCC) [O26.899, R30.0] 04/09/2025 04/10/2025 Pyelonephritis complicating , antepart*04/09/2025 20 weeks gestation of (HCC) [Z3A.20] 04/10/2025 04/24/2025 Elevated blood pressure reading in office witho*04/10/2025 Pyelonephritis affecting (HCC) [O23.0*04/24/2025 Prematurity of fetus (HCC) [P07.30] 04/24/2025 04/25/2025 Flank pain with history of urolithiasis [R10.9,*04/25/2025 Nicotine use disorder, F17.2 [F17.200] 04/25/2025 Back pain affecting (HCC) [O99.891, M*04/26/2025 Encounter for supervision of high risk pregnanc*05/06/2025 Anemia complicating , second trimester*05/06/2025 Pruritus of in second trimester (HCC)*05/06/2025 Elevated glucose tolerance test [R73.09] 06/03/2025 Encounter Status:Closed by KATELYNN LUCIANO on 06/07/25 Normal [facility] CBC W Auto Differential pane l (Bld)on 06-03-2025 Basophils (Bld) [#/Vol] 0.03 10*3/uL Normal <0.11 [facility] Comment on above: Order Comment: Speci men Type: BLOOD SPECIMENOrdering Facility: [facility] Address: [address] [place] [address] Performed By: #### 5 7021-8 ####[facility] [id number] [place] [address] [place] Basophils/100 WBC (Bld) 0.3 % Normal [facility] Comment on above: Order Comment: Speci men Type: BLOOD SPECIMENOrdering Facility: [facility] Address: [address] [place] [address] Performed By: #### 5 7021-8 ####[facility] [id number] [place] [address] [place] Differential cell count method Nom (Bld) Auto Normal [facility] Comment on above: Order Comment: Speci men Type: BLOOD SPECIMENOrdering Facility: [facility] Address: [address] [place] [address] Performed By: #### 5 7021-8 ####[facility] MILLWNCL[facility] [id number] [place] [address] [place] Eosinophils (Bld) [#/Vol] 0.08 10*3/uL Normal <0.46 [facility] Comment on above: Order Comment: Speci men Type: BLOOD SPECIMENOrdering Facility: [facility] Address: [address] [place] [address] Performed By: #### 5 7021-8 ####[facility] [id number] [place] [address] [place] OF HEAVEN Eosinophils/100 WBC (Bld) 0.8 % Normal [facility] Comment on above: Order Comment: Speci men Type: BLOOD SPECIMENOrdering Facility: [facility] [place] Address: [address] [place] [address] Performed By: #### 5 7021-8 ####[facility]ITAL[facility]CL[facility] [id number] [place] [address] [place] Erythrocyte distribution width (RBC) [Ratio] 15.9 % High 11.5-15.0 [facility] Comment on above: Order Comment: Speci men Type: BLOOD SPECIMENOrdering Facility: [facility] [place] Address: [address] [place] [address] Performed By: #### 5 7021-8 ####[facility]ITALNCTOO[facility] [id number] [place] [address] [place] Hematocrit (Bld) [Volume fraction] 33.7 % Low 36.0-46.0 [facility] Comment on above: Order Comment: Speci men Type: BLOOD SPECIMENOrdering Facility: [facility] [place] Address: [address] [place] [address] Performed By: #### 5 7021-8 ####[facility]ITALNCLI [id number] [place] [address] [place] Hemoglobin (Bld) [Mass/Vol] 11.1 g/dL Low 11.5-15.5 [facility] Comment on above: Order Comment: Speci men Type: BLOOD SPECIMENOrdering Facility: [facility] [place] Address: [address] [place] [address] Performed By: #### 5 7021-8 ####[facility]CL[facility] [id number] [place] [address] [place] Immature granulocytes (Bld) [#/Vol] 0.03 10*3/uL Normal <0.10 [facility] Comment on above: Order Comment: Speci men Type: BLOOD SPECIMENOrdering Facility: [facility] [place] Address: [address] [place] [address] Performed By: #### 5 7021-8 ####[facility] TOMÁSJAK [id number] [place] [address] [place] Immature granulocytes/100 WBC (Bld) 0.3 % Normal [facility] Comment on above: Order Comment: Speci men Type: BLOOD SPECIMENOrdering Facility: [facility] [place] Address: [address] [place] [address] Performed By: #### 5 7021-8 ####[facility]ITALNCTOO[facility] [id number] [place] [address] [place] Lymphocytes (Bld) [#/Vol] 1.45 10*3/uL Normal 1.00-4.00 [facility] Comment on above: Order Comment: Speci men Type: BLOOD SPECIMENOrdering Facility: [facility] [place] Address: [address] [place] [address] Performed By: #### 5 7021-8 ####[facility] [id number] [address] STATES [facility] Lymphocytes/100 WBC (Bld) 14.3 % Normal [facility] Comment on above: Order Comment: Speci men Type: BLOOD SPECIMENOrdering Facility: [facility] [place] Address: [address] [place] [address] Performed By: #### 5 7021-8 ####[facility] [id number] [place] [address] [place] MCH (RBC) [Entitic mass] 27.3 pg Normal 26.0-34.0 [facility] Comment on above: Order Comment: Speci men Type: BLOOD SPECIMENOrdering Facility: [facility] [place] Address: [address] [place] [address] Performed By: #### 5 7021-8 ####[facility] SERVICESWTERESALIA [id number] [place] [address] [place] MCHC (RBC) [Mass/Vol] 32.9 g/dL Normal 30.5-36.0 [facility] Comment on above: Order Comment: Speci men Type: BLOOD SPECIMENOrdering Facility: [facility] [place] Address: [address] [place] [address] Performed By: #### 5 7021-8 ####[facility] [id number] [place] [address] [place] MCV (RBC) [Entitic vol] 82.8 fL Normal 80.0-100.0 [facility] Comment on above: Order Comment: Speci men Type: BLOOD SPECIMENOrdering Facility: [facility] [place] Address: [address] [place] [address] Performed By: #### 5 7021-8 ####[facility] [id number] [place] [address] [place] Monocytes (Bld) [#/Vol] 0.47 10*3/uL Normal <0.87 [facility] Comment on above: Order Comment: Speci men Type: BLOOD SPECIMENOrdering Facility: [facility] [place] Address: [address] [place] [address] Performed By: #### 5 7021-8 ####[facility] [id number] [place] [address] [place] Monocytes/100 WBC (Bld) 4.6 % Normal C [facility] Comment on above: Order Comment: Speci men Type: BLOOD SPECIMENOrdering Facility: [facility] [place] Address: [address] [place] [address] Performed By: #### 5 7021-8 ####[facility] [id number] [place] [address] [place] Neutrophils (Bld) [#/Vol] 8.11 10*3/uL High 1.45-7.50 [facility] Comment on above: Order Comment: Speci men Type: BLOOD SPECIMENOrdering Facility: [facility] [place] Address: [address] [place] [address] Performed By: #### 5 7021-8 ####[facility] [id number] [place] [address] [place] Neutrophils/100 WBC (Bld) 79.7 % Normal [facility] Comment on above: Order Comment: Speci men Type: BLOOD SPECIMENOrdering Facility: [facility] [place] Address: [address] [place] [address] Performed By: #### 5 7021-8 ####[facility]ITALNCTOO[facility] [id number] [place] [address] [place] Nucleated RBC (Bld) [#/Vol] 10*3/uL Normal <0.01 [facility] Comment on above: Order Comment: Speci men Type: BLOOD SPECIMENOrdering Facility: [facility] [place] Address: [address] [place] [address] Performed By: #### 5 7021-8 ####[facility] [id number] [place] [address] [place] Nucleated RBC/100 WBC (Bld) [Ratio] 0.0 /100 WBC Normal [facility] Comment on above: Order Comment: Speci men Type: BLOOD SPECIMENOrdering Facility: [facility] [place] Address: [address] [place] [address] Performed By: #### 5 7021-8 ####[facility]ITALNCLIA [id number] [place] [address] [place] Platelet mean volume (Bld) [Entitic vol] 9.5 fL Normal 9.0-12.7 [facility] Comment on above: Order Comment: Speci men Type: BLOOD SPECIMENOrdering Facility: [facility] [place] Address: [address] [place] [address] Performed By: #### 5 7021-8 ####[facility] RODNEYNCREENAA [id number] [place] [address] [place] Platelets (Bld) [#/Vol] 364 10*3/uL Normal 150-400 [facility] Comment on above: Order Comment: Speci men Type: BLOOD SPECIMENOrdering Facility: [facility] [place] Address: [address] [place] [address] Performed By: #### 5 7021-8 ####[facility] TOMÁSSTANLEYNCLIA [id number] [place] [address] [place] RBC (Bld) [#/Vol] 4.07 10*6/uL Normal 3.90-5.20 [facility] Comment on above: Order Comment: Speci men Type: BLOOD SPECIMENOrdering Facility: [facility] [place] Address: [address] [place] [address] Performed By: #### 5 7021-8 ####[facility] HOSPITALNCREENAA [id number] [place] [address] [place] WBC (Bld) [#/Vol] 10.17 10*3/uL Normal 3.70-11.00 [facility] Comment on above: Order Comment: Speci men Type: BLOOD SPECIMENOrdering Facility: [facility] [place] Address: [address] [place] [address] Performed By: #### 5 7021-8 ####[facility]ITALNCLIA [id number] [place] [address] [place] GESTATIONAL GLUCOSE SCREEN, 1-HOUR, 50 GRAM, NON-FASTINGon 06-03-2025 Glucose [Mass/Vol] 139 mg/dL High 74-134 [facility] Comment on above: Order Comment: Speci men Type: BLOOD SPECIMENOrdering Facility: [facility] [place] Address: [address] [place] [address] Result Comment: [facility] Congress of Obstetricians and Gynecologists (Yanick/Linda) guidelines state a gestational diabetes mellitus positive screen is made, in women not previously diagnosed with overt diabetes, when the 1 hr plasma glucose level is equal to or above 140 mg/dL. The [facility] [employer] [facility] [place] recommends a 135 mg/dL cutoff. Performed By: #### G LTGST ####[facility] [id number] [place] [address] [place] Reagin and Treponema pallidu m IgG and IgM [Interp]on 06-03-2025 T. pallidum IgG+IgM IA Ql (S) Non-Reactive Normal Nonreactive [facility] Comment on above: Order Comment: Speci men Type: BLOOD SPECIMEN Ordering Facility: [facility] [place] Address: [address] [place] [address] Performed By: #### 3 024-7, 3015-3 #### [facility] CLIA [id number] [address] [place] [address] [place] Reagin+T pallidum IgG+IgM Se rPl-Impon 06-03-2025 Reagin and Treponema pallidum IgG and IgM [Interp] Cannot exclude recent Treponemal infection if specimen collected within 7-10 days after appearance of suspect lesions or 2-3 weeks after an exposure. Clinical correlation is required. Normal [facility] Comment on above: Order Comment: Speci men Type: BLOOD SPECIMEN Ordering Facility: [facility] [place] Address: [address] [place] [address] Performed By: #### 3 024-7, 6-3 #### [facility] CLIA [id number] [address] [place] [address] [place] BILE ACIDS, TOTALon 05-06-20 25 Bile acid [Moles/Vol] 3.9 umol/L Normal <7.5 [facility] Comment on above: Order Comment: Speci men Type: BLOOD SPECIMENOrdering Facility: [facility] [place] Address: [address] [place] [address] Result Comment: Refe rence interval applies to fasting specimens. The total serum bile acid concentration is increased after meals; hence, samples should be collected under fasting conditions, when possible. This does not apply to patients for whom intrahepatic cholestasis of as a diagnostic consideration; these patients will need peak bile acid testing, and samples should be postprandial. This serum bile acid assay should not be used for patients receiving ursodeoxycholic acid, nor should it be used as the primary assay for the screening or diagnosis of genetic disorders of bile acid metabolism. Patient Reference Intervals: 0 Days to 5 Months: Not established 6 Months to 23 Months: <25.8 umol/L 2 Years to 4 Years: <20.9 umol/L 5 Years to 9 Years: <12.4 umol/L 10 Years to 19 Years: <13.6 umol/L 20 Years to 59 Years: <7.5 umol/L >=60 Years: <8.3 umol/L Reference Intervals (Non-fasting): First Trimester (up to 13 weeks gestation): < 15.3 umol/L Reference Interval (Non-fasting): Second Trimester (13 - 27 weeks gestation): < 11.4 umol/L Reference Interval (Non-fasting): Third Trimester (> 27 weeks gestation): < 10.4 umol/L Performed By: #### B ILETO ####[facility] LABCLIA [id number] [place] [id number] [place] Bacteria Ur Culton Bacteria identified Cx Nom (U) ORGANISM ID: 1 10,000 -<50,000 CFU/ml Normal urogenital kilo Normal [facility] Comment on above: Performed By: #### 6 30-4 ####[facility] LABCLIA [id number] [address] [address] [place] Comprehensive metabolic 2000 panelOrdered By: Ishaan Chavez on 05-06-2025 Albumin [Mass/Vol] 3.6 g/dL Low 3.9 - 4.9 g/dL [facility] ALP [Catalytic activity/Vol] 85 U/L 34 - 123 U/L [facility] ALT [Catalytic activity/Vol] 29 U/L 7 - 38 U/L [facility] Anion gap [Moles/Vol] 14 mmol/L 8 - 15 mmol/L [facility] AST [Catalytic activity/Vol] 16 U/L 13 - 35 U/L [facility] Bilirubin [Mass/Vol] 0.4 mg/dL 0.2 - 1 .3 mg/dL [facility] Calcium [Mass/Vol] 9.1 mg/dL 8.5 - 10. 2 mg/dL [facility] Chloride [Moles/Vol] 104 mmol/L 98 - 10 7 mmol/L [facility] CO2 [Moles/Vol] 16 mmol/L Low 22 - 30 mmol/L [facility] Creatinine [Mass/Vol] 0.58 mg/dL 0.58 - 0.96 mg/dL [facility] GFR/1.73 sq M.predicted among non-blacks MDRD (S/P/Bld) [Vol rate/Area] 127 mL/min/{1.73_m2} - PINF [facility] Comment on above: Estimated Glomerular Filtration Rate (eGFR) is calculated using the 2020 CKD-EPI creatinine equation. This equation utilizes serum creatinine, sex, and age as parameters. The creatinine assay has traceable calibration to isotope dilution-mass spectrometry. Refer to KDIGO guidelines for clinical interpretation. In patients with unstable renal function, e.g. those with acute kidney injury, the eGFR may not accurately reflect actual GFR. Glucose [Mass/Vol] 96 mg/dL 74 - 99 mg/dL [facility] Comment on above: The [place] Diabete s Association (ADA) provides guidance for cutoff values for fasting glucose and random glucose. The ADA defines fasting as no caloric intake for at least 8 hours. Fasting plasma glucose results between 100 to 125 mg/dL indicate increased risk for diabetes (prediabetes). Fasting plasma glucose results greater than or equal to 126 mg/dL meet the criteria for diagnosis of diabetes. In the absence of unequivocal hyperglycemia, results should be confirmed by repeat testing. In a patient with classic symptoms of hyperglycemia or hyperglycemic crisis, random plasma glucose results greater than or equal to 200 mg/dL meet the criteria for diagnosis of diabetes. Reference: Standards of Medical Care in Diabetes 2016, [place] Diabetes Association. Diabetes Care. 2016.39(Suppl 1). Interpretation and review of laboratory results Abnormal [facility] Potassium [Moles/Vol] 3.6 mmol/L Low 3.7 - 5.1 mmol/L [facility] Protein [Mass/Vol] 6.7 g/dL 6.3 - 8.0 g/dL [facility] Sodium [Moles/Vol] 134 mmol/L Low 136 - 144 mmol/L [facility] Urea nitrogen [Mass/Vol] 7 mg/dL 7 - 21 mg/dL [facility] Comprehensive metabolic 2000 panelon 05-06-2025 Albumin [Mass/Vol] 3.6 g/dL Low 3.9-4.9 [facility] Comment on above: Order Comment: Speci men Type: BLOOD SPECIMEN Ordering Facility: [facility] [place] Address: [address] [place] [address] Performed By: #### 3 024-7, 3016-3 #### [facility] CLIA [id number] [address] [place] [address] [place] ALP [Catalytic activity/Vol] 85 U/L Normal 34-123 [facility] Comment on above: Order Comment: Speci men Type: BLOOD SPECIMEN Ordering Facility: [facility] [place] Address: [address] [place] [address] Performed By: #### 3 024-7, 3016-3 #### [facility] CLIA [id number] [address] [place] [address] [place] ALT [Catalytic activity/Vol] 29 U/L Normal 7-38 [facility] Comment on above: Order Comment: Speci men Type: BLOOD SPECIMEN Ordering Facility: [facility] [place] Address: [address] [place] [address] Performed By: #### 3 024-7, 3016-3 #### [facility] CLIA [id number] [address] [place] [address] [place] Anion gap [Moles/Vol] 14 mmol/L Normal 8-15 [facility] Comment on above: Order Comment: Speci men Type: BLOOD SPECIMEN Ordering Facility: [facility] [place] Address: [address] [place] [address] Performed By: #### 3 024-7, 3016-3 #### [facility] CLIA [id number] [address] [place] [address] [place] AST [Catalytic activity/Vol] 16 U/L Normal 13-35 [facility] Comment on above: Order Comment: Speci men Type: BLOOD SPECIMEN Ordering Facility: [facility] [place] Address: [address] [place] [address] Performed By: #### 3 024-7, 3016-3 #### [facility] CLIA [id number] [address] [place] [address] [place] Bilirubin [Mass/Vol] 0.4 mg/dL Normal 0.2-1.3 [facility] Comment on above: Order Comment: Speci men Type: BLOOD SPECIMEN Ordering Facility: [facility] [place] Address: [address] [place] [address] Performed By: #### 3 024-7, 3016-3 #### [facility] CLIA [id number] [address] [place] [address] [place] Calcium [Mass/Vol] 9.1 mg/dL Normal 8.5-10.2 [facility] Comment on above: Order Comment: Speci men Type: BLOOD SPECIMEN Ordering Facility: [facility] [place] Address: [address] [place] [address] Performed By: #### 3 024-7, 3016-3 #### [facility] CLIA [id number] [address] [place] [address] [place] Chloride [Moles/Vol] 104 mmol/L Normal 98-107 [facility] Comment on above: Order Comment: Speci men Type: BLOOD SPECIMEN Ordering Facility: [facility] [place] Address: [address] [place] [address] Performed By: #### 3 024-7, 3016-3 #### [facility] CLIA [id number] [address] [place] [address] [place] CO2 [Moles/Vol] 16 mmol/L Low 22-30 [facility] Comment on above: Order Comment: Speci men Type: BLOOD SPECIMEN Ordering Facility: [facility] [place] Address: [address] [place] [address] Performed By: #### 3 024-7, 3015-3 #### [facility] CLIA [id number] [address] [place] [address] [place] Creatinine [Mass/Vol] 0.58 mg/dL Normal 0.58-0.96 [facility] Comment on above: Order Comment: Speci men Type: BLOOD SPECIMEN Ordering Facility: [facility] [place] Address: [address] [place] [address] Performed By: #### 3 024-7, 3 #### [facility] CLIA [id number] [address] [place] [address] [place] Creatinine and Glomerular filtration rate.predicted panel (S/P/Bld) 127 mL/min/1.73m??? Normal >=60 [facility] Comment on above: Order Comment: Speci men Type: BLOOD SPECIMEN Ordering Facility: [facility] [place] Address: [address] [place] [address] Result Comment: Yeimy mated Glomerular Filtration Rate (eGFR) is calculated using the 2020 CKD-EPI creatinine equation. This equation utilizes serum creatinine, sex, and age as parameters. The creatinine assay has traceable calibration to isotope dilution-mass spectrometry. Refer to KDIGO guidelines for clinical interpretation. In patients with unstable renal function, e.g. those with acute kidney injury, the eGFR may not accurately reflect actual GFR. Performed By: #### 3 024-7, 3015-3 #### [facility] CLIA [id number] [address] [place], [place] [address] [place] Glucose [Mass/Vol] 96 mg/dL Normal 74-99 [facility] Comment on above: Order Comment: George grimes Type: BLOOD SPECIMEN Ordering Facility: [facility] [place] Address: [address] [place] [address] Result Comment: The [place] Diabetes Association (ADA) provides guidance for cutoff values for fasting glucose and random glucose. The ADA defines fasting as no caloric intake for at least 8 hours. Fasting plasma glucose results between 100 to 125 mg/dL indicate increased risk for diabetes (prediabetes). Fasting plasma glucose results greater than or equal to 126 mg/dL meet the criteria for diagnosis of diabetes. In the absence of unequivocal hyperglycemia, results should be confirmed by repeat testing. In a patient with classic symptoms of hyperglycemia or hyperglycemic crisis, random plasma glucose results greater than or equal to 200 mg/dL meet the criteria for diagnosis of diabetes. Reference: Standards of Medical Care in Diabetes 2016, [place] Diabetes Association. Diabetes Care. 2016.39(Suppl 1). Performed By: #### 3 024-7, 3016-3 #### [facility] CLIA [id number] [address] [place] [address] [place] Potassium [Moles/Vol] 3.6 mmol/L Low 3.7-5.1 [facility] Comment on above: Order Comment: George grimes Type: BLOOD SPECIMEN Ordering Facility: [facility] [place] Address: [address] [place] [address] Performed By: #### 3 024-7, 3016-3 #### [facility] CLIA [id number] [address] [place] [address] [place] Protein [Mass/Vol] 6.7 g/dL Normal 6.3-8.0 [facility] Comment on above: Order Comment: George grimes Type: BLOOD SPECIMEN Ordering Facility: [facility] [place] Address: [address] [place] [address] Performed By: #### 3 024-7, 3016-3 #### [facility] CLIA [id number] [address] [place] [address] [place] Sodium [Moles/Vol] 134 mmol/L Low 136-144 [facility] Comment on above: Order Comment: Speci men Type: BLOOD SPECIMEN Ordering Facility: [facility] [place] Address: [address] [place] [address] Performed By: #### 3 024-7, 3016-3 #### [facility] CLIA [id number] [address] [place] [address] [place] Urea nitrogen [Mass/Vol] 7 mg/dL Normal 7-21 [facility] Comment on above: Order Comment: Speci men Type: BLOOD SPECIMEN Ordering Facility: [facility] [place] Address: [address] [place] [address] Performed By: #### 3 024-7, 3016-3 #### [facility] CLIA [id number] [address] [place] [address] [place] T4 Free SerPl-mCncon 025 Free T4 [Mass/Vol] 0.7 ng/dL Low 0.9-1.7 [facility] Comment on above: Order Comment: Speci men Type: BLOOD SPECIMENOrdering Facility: [facility] [place] Address: [address] [place] [address] Performed By: #### 3 016-3, 3024-7 ####[facility] LABCLIA [id number] [place] [address] [place] TSH SerPl-aCncon 05-06-2025 TSH Qn 5.060 m[IU]/L High 0.270-4.200 [facility] Comment on above: Order Comment: Speci men Type: BLOOD SPECIMENOrdering Facility: [facility] [place] Address: [address] [place] [address] Result Comment: If t he patient is , TSH reference range varies by gestational period: First Trimester (weeks 9-12): 0.180-2.990 mIU/L Second Trimester: 0.110-3.980 mIU/L Third Trimester: 0.480-4.710 mIU/L Tonny Isaac et al. A Practical Approach for the Verifications and Determination of Site- and Trimester-Specific Reference Intervals for Thyroid Function tests in . Thyroid, 2019:29:3:412-420. Ronak E, et al. 2017 Guidelines of the [place] Thyroid Association for the Diagnosis and Management of Thyroid Disease during and the . Thyroid, 2017:27:3:315-389. Performed By: #### 3 016-3, 3024-7 ####[facility] LABCLIA [id number] [address] [facility] CBC panel Auto (Bld)on 04-28 Erythrocyte distribution width (RBC) [Ratio] 16.8 % High 11.5-15.0 [facility] Comment on above: Order Comment: Speci men Type: BLOOD SPECIMENOrdering Facility: [facility] [place] Address: [address] [place] [address] Performed By: #### 6 30-4, 71725-4 #### [facility] CLIA [id number] [address] Hematocrit (Bld) [Volume fraction] 32.3 % Low 36.0-46.0 [facility] Comment on above: Order Comment: Speci men Type: BLOOD SPECIMENOrdering Facility: [facility] [place] Address: [address] [place] [address] Performed By: #### 6 30-4, 21510-8 #### [facility] CLIA [id number] [address] Hemoglobin (Bld) [Mass/Vol] 10.4 g/dL Low 11.5-15.5 [facility] Comment on above: Order Comment: Speci men Type: BLOOD SPECIMENOrdering Facility: [facility] [place] Address: [address] [place] [address] Performed By: #### 6 30-4, 23933-6 #### [facility] CLIA [id number] [address] MCH (RBC) [Entitic mass] 27.5 pg Normal 26.0-34.0 [facility] Comment on above: Order Comment: Speci men Type: BLOOD SPECIMENOrdering Facility: [facility] [place] Address: [address] [place] [address] Performed By: #### 6 30-4, 05951-3 #### [facility] CLIA [id number] [address] MCHC (RBC) [Mass/Vol] 32.2 g/dL Normal 30.5-36.0 [facility] Comment on above: Order Comment: Speci men Type: BLOOD SPECIMENOrdering Facility: [facility] [place] Address: [address] [place] [address] Performed By: #### 6 30-4, 15971-3 #### [facility] CLIA [id number] [address] MCV (RBC) [Entitic vol] 85.4 fL Normal 80.0-100.0 [facility] Comment on above: Order Comment: Speci men Type: BLOOD SPECIMENOrdering Facility: [facility] [place] Address: [address] [place] [address] Performed By: #### 6 30-4, 84297-4 #### [facility] CLIA [id number] [address] Nucleated RBC (Bld) [#/Vol] 10*3/uL Normal <0.01 [facility] Comment on above: Order Comment: Speci men Type: BLOOD SPECIMENOrdering Facility: [facility] [place] Address: [address] [place] [address] Performed By: #### 6 30-4, 91528-3 #### [facility] CLIA [id number] [address] Platelet mean volume (Bld) [Entitic vol] 9.9 fL Normal 9.0-12.7 [facility] Comment on above: Order Comment: Speci men Type: BLOOD SPECIMENOrdering Facility: [facility] [place] Address: [address] [place] [address] Performed By: #### 6 30-4, 38873-2 #### [facility] CLIA [id number] [address] Platelets (Bld) [#/Vol] 316 10*3/uL Normal 150-400 [facility] Comment on above: Order Comment: Speci men Type: BLOOD SPECIMENOrdering Facility: [facility] [place] Address: [address] [place] [address] Performed By: #### 6 30-4, 86385-7 #### [facility] CLIA [id number] [address] RBC (Bld) [#/Vol] 3.78 10*6/uL Low 3.90-5.20 [facility] Comment on above: Order Comment: Speci men Type: BLOOD SPECIMENOrdering Facility: [facility] [place] Address: [address] [place] [address] Performed By: #### 6 30-4, 78033-9 #### [facility] CLIA [id number] [address] WBC (Bld) [#/Vol] 8.33 10*3/uL Normal 3.70-11.00 [facility] Comment on above: Order Comment: Speci men Type: BLOOD SPECIMENOrdering Facility: [facility] [place] Address: [address] [place] [address] Performed By: #### 6 30-4, 52881-8 #### [facility] CLIA [id number] [address] CNDSon 04-28-2025 CNDS HNO ID: [id number] Author: EDOUARD ANDUJAR MD Service: Obstetrics Author Type: Resident Type: Discharge Summary Filed: 04/28/2025 09:11 Note Text: Attestation signed by Edouard Andujar MD at 04/28/2025 9:11 AM [facility] Attending Addendum: Please see EMR for comprehensive details of management and counseling. Edouard Andujar MD DISCHARGE SUMMARY OBSTETRICS PATIENT NAME: Yokasta Pretty ADMISSION DATE: 04/24/2025 DISCHARGE DATE: 04/28/2025 Attending Physician: Abhay Campbell MD Code Status: Not on file Treatment Team: Attending Provider: Abhay Campbell MD Maternal Obstetric Provider: Amberly Sanchez Reason for Hospitalization: Intrauterine . Principal Problem: Pyelonephritis affecting (HCC) (POA: Yes) Active Problems: History of depression (POA: Yes) Obesity affecting in second trimester (HCC) (POA: Yes) Anxiety disorder affecting , antepartum (HCC) (POA: Yes) Hypothyroidism affecting in second trimester (HCC) (POA: Yes) Rubella non-immune status, antepartum (HCC) (POA: Yes) Pyelonephritis complicating , antepartum (HCC) (POA: Yes) Elevated blood pressure reading in office without diagnosis of hypertension (POA: Yes) Flank pain with history of urolithiasis (POA: Unknown) 23 weeks gestation of (HCC) (POA: Unknown) Nicotine use disorder, F17.2 (POA: Unknown) Back pain affecting (HCC) (POA: Unknown) Resolved Problems: Prematurity of fetus (HCC) (POA: Unknown) PROCEDURES/SURGERY DURING HOSPITALIZATION (if applicable) Hospital Course: 29 year old with a GA of 23w3d admitted for Yokasta Pretty is a 29 year old admitted 04/24 for observation and pain control in setting of recurrent pyelonephritis. Patient met diagnosis with a positive urine culture and left CVA tenderness. She was afebrile with a normal WBC on presentation and throughout her admission. Renal ultrasound showed no signs of hydronephrosis. She received IV Rocephin, daily Flomax, and maintenance fluids. Vancomycin was added when Staph aureus returned on urine culture and symptoms had not been improved. Pain was initially poorly controlled Tylenol, oxycodone, flexeril, and morphine. MRI abdomen/pelvis without contrast was obtained on HD#3 given persistent pain with findings notable for no evidence of obstruction, hydronephritis, or acute abdominal/pelvic pathologiy. Urine culture resulted as hall-sensitive and she was transitioned to Macrobid BID for a full 14 day course. She ultimately improved on 04/28/25 and was comfortable with discharge home testing was reassuring throughout admission. Patient will be discharged with Macrobid 100mg BID to complete a 14 day course (ends 05/08) and then antibiotic suppression of Macrobid 100 mg oral daily for the remainder of her . Patient was stable for discharge on 04/28. Follow up with outpatient provider in one week as scheduled, 05/06/25. Consulting Teams During Hospitalization: None Patient Condition @ Discharge: Good Discharge Disposition: Home/Self Care Information Provided to Patient: Diet Instructions Resume your pre-hospital diet Specific Concerns for Follow-up Post Discharge: Routine care Delivery Plan/Recommendations: per primary OB provider Discharge Medications: Medication List START taking these medications cyclobenzaprine 5 mg tablet Commonly known as: FLEXERIL Take 1 tablet by mouth three times a day as needed. * nitrofurantoin monohydrate and macrocrystal 100 mg capsule Commonly known as: MACROBID Take 1 capsule by mouth two times a day with meals for 19 doses. * nitrofurantoin monohydrate and macrocrystal 100 mg capsule Commonly known as: MACROBID Take 1 capsule by mouth once daily. Take 1 capsule once daily for suppression / UTI prophylaxis for duration of Patient should start on May 09, 2026. Start taking on: May 09, 2026 oxyCODONE IR 5 mg immediate release tablet Commonly known as: ROXICODONE Take 1 tablet by mouth every 6 hours as needed for up to 3 days. polyethylene glycol 3350 17 gram packet Take 1 packet by mouth once daily. Dissolve dose in 4 - 8 ounces of liquid and take as directed. Start taking on: April 29, 2025 * This list has 2 medication(s) that are the same as other medications prescribed for you. Read the directions carefully, and ask your doctor or other care provider to review them with you. CHANGE how you take these medications * acetaminophen 500 mg tablet Commonly known as: TYLENOL What changed: Another medication with the same name was added. Make sure you understand how and when to take each. * acetaminophen 500 mg tablet Commonly known as: TYLENOL Take 2 tablets by mouth every 6 hours as needed f (more content not included)... Normal [facility] Comprehensive metabolic 2000 panelon 04-28-2025 Albumin [Mass/Vol] 3.3 g/dL Low 3.9-4.9 [facility] Comment on above: Order Comment: Speci cornelio Type: BLOOD SPECIMENOrdering Facility: [facility] [place] Address: [address] [place] [address] Performed By: #### 6 30-4, 39013-1 #### [facility] CLIA [id number] [address] ALP [Catalytic activity/Vol] 74 U/L Normal 34-123 [facility] Comment on above: Order Comment: Speci [facility] Type: BLOOD SPECIMENOrdering Facility: [facility] [place] Address: [address] [place] [address] Performed By: #### 6 30-4, 19232-2 #### [facility] CLIA [id number] [address] ALT With P-5'-P [Catalytic activity/Vol] 23 U/L Normal 7-38 [facility] Comment on above: Order Comment: Speci men Type: BLOOD SPECIMENOrdering Facility: [facility] [place] Address: [address] [place] [address] Performed By: #### 6 30-4, 82311-3 #### [facility] CLIA [id number] [address] Anion gap [Moles/Vol] 12 mmol/L Normal 8-15 [facility] Comment on above: Order Comment: Speci men Type: BLOOD SPECIMENOrdering Facility: [facility] [place] Address: [address] [place] [address] Performed By: #### 6 30-4, 13655-9 #### [facility] CLIA [id number] 1 [place] [address] [place] AST With P-5'-P [Catalytic activity/Vol] 13 U/L Normal 13-35 [facility] Comment on above: Order Comment: Speci men Type: BLOOD SPECIMENOrdering Facility: [facility] [place] Address: [address] [place] [address] Performed By: #### 6 30-4, 74407-0 #### [facility] CLIA [id number] [address] [place] Bilirubin [Mass/Vol] 0.2 mg/dL Normal 0.2-1.3 [facility] Comment on above: Order Comment: Speci men Type: BLOOD SPECIMENOrdering Facility: [facility] [place] Address: [address] [place] [address] Performed By: #### 6 30, 33728-5 #### [facility] CLIA [id number] [address] [place] Calcium [Mass/Vol] 8.9 mg/dL Normal 8.5-10.2 [facility] Comment on above: Order Comment: Speci men Type: BLOOD SPECIMENOrdering Facility: [facility] [place] Address: [address] [place] [address] Performed By: #### 6 304, 11299-8 #### [facility] CLIA [id number] 1 [place] [address] [place] Chloride [Moles/Vol] 104 mmol/L Normal 98-107 [facility] Comment on above: Order Comment: Speci men Type: BLOOD SPECIMENOrdering Facility: [facility] [place] Address: [address] [place] [address] Performed By: #### 6 30-4, 70917-2 #### [facility] CLIA [id number] 1 [place] [address] [place] CO2 [Moles/Vol] 21 mmol/L Low 22-30 [facility] Comment on above: Order Comment: Speci men Type: BLOOD SPECIMENOrdering Facility: [facility] [place] Address: [address] [place] [address] Performed By: #### 6 30-4, 53180-9 #### [facility] CLIA [id number] [address] STATES OF [facility] Creatinine [Mass/Vol] 0.56 mg/dL Low 0.58-0.96 [facility] Comment on above: Order Comment: George cornelio Type: BLOOD SPECIMENOrdering Facility: [facility] [place] Address: [address] [place] [address] Performed By: #### 6 30-4, 05672-8 #### [facility] CLIA [id number] [address] Creatinine and Glomerular filtration rate.predicted panel (S/P/Bld) 128 mL/min/1.73m??? Normal >=60 [facility] Comment on above: Order Comment: George cornelio Type: BLOOD SPECIMENOrdering Facility: [facility] [place] Address: [address] [place] [address] Result Comment: Yeimy mated Glomerular Filtration Rate (eGFR) is calculated using the 2020 CKD-EPI creatinine equation. This equation utilizes serum creatinine, sex, and age as parameters. The creatinine assay has traceable calibration to isotope dilution-mass spectrometry. Refer to KDIGO guidelines for clinical interpretation. In patients with unstable renal function, e.g. those with acute kidney injury, the eGFR may not accurately reflect actual GFR. Performed By: #### 6 30-4, 51810-5 #### [facility] CLIA [id number] [address] [place] Glucose [Mass/Vol] 85 mg/dL Normal 74-99 [facility] Comment on above: Order Comment: George grimes Type: BLOOD SPECIMENOrdering Facility: [facility] [place] Address: [address] [place] [address] Result Comment: The [place] [employer] (ADA) provides guidance for cutoff values for fasting glucose and random glucose. The ADA defines fasting as no caloric intake for at least 8 hours. Fasting plasma glucose results between 100 to 125 mg/dL indicate increased risk for diabetes (prediabetes). Fasting plasma glucose results greater than or equal to 126 mg/dL meet the criteria for diagnosis of diabetes. In the absence of unequivocal hyperglycemia, results should be confirmed by repeat testing. In a patient with classic symptoms of hyperglycemia or hyperglycemic crisis, random plasma glucose results greater than or equal to 200 mg/dL meet the criteria for diagnosis of diabetes. Reference: Standards of Medical Care in Diabetes 2016, [place] [employer]. Diabetes Care. 2016.39(Suppl 1). Performed By: #### 6 30-4, 65588-5 #### [facility] CLIA [id number] 1 [place] [address] [place] Potassium [Moles/Vol] 3.7 mmol/L Normal 3.7-5.1 [facility] Comment on above: Order Comment: Speci men Type: BLOOD SPECIMENOrdering Facility: [facility] [place] Address: [address] [place] [address] Performed By: #### 6 30-, 39095-4 #### [facility] CLIA [id number] 1 [place] [address] [place] Protein [Mass/Vol] 6.1 g/dL Low 6.3-8.0 [facility] Comment on above: Order Comment: Speci men Type: BLOOD SPECIMENOrdering Facility: [facility] [place] Address: [address] [place] [address] Performed By: #### 6 30-4, 74074-2 #### [facility] CLIA [id number] 1 [place] [address] [place] Sodium [Moles/Vol] 137 mmol/L Normal 136-144 [facility] Comment on above: Order Comment: Speci men Type: BLOOD SPECIMENOrdering Facility: [facility] [place] Address: [address] [place] [address] Performed By: #### 6 30-4, 34777-8 #### [facility] CLIA [id number] 1 [place] [address] [place] Urea nitrogen [Mass/Vol] 7 mg/dL Normal 7-21 [facility] Comment on above: Order Comment: Speci men Type: BLOOD SPECIMENOrdering Facility: [facility] [place] Address: [address] [place] [address] Performed By: #### 6 30-4, 30048-9 #### [facility] CLIA [id number] [address] TYPE + SCREEN PRENATALon ABO O Normal [facility] Comment on above: Order Comment: Speci men Type: BLOOD SPECIMENOrdering Facility: [facility] [place] Address: [address] [place] [address] Performed By: #### T SPN ####[facility] BANKCLIA [id number] [address] Rh Nom (Bld) Positive Normal [facility] Comment on above: Order Comment: Speci men Type: BLOOD SPECIMENOrdering Facility: [facility] [place] Address: [address] [place] [address] Performed By: #### T SPN ####[facility]LO[facility] BANKCLIA [id number] [address] TYPE AND SCREEN EXPIRATION 05/01/2025 23:59 Normal [facility] Comment on above: Order Comment: Speci men Type: BLOOD SPECIMENOrdering Facility: [facility] [place] Address: [address] [place] [address] Performed By: #### T SPN ####[facility] BLO[facility] BANKCLIA [id number] [address] [place] ALLIED HEALTHon 04-27-2025 ALLIED HEALTH HNO ID: [id number] Author: GREGORIO DONALD, acquisition manager Service: ? Author Type: Technologist Type: Allied Health Filed: 04/27/2025 16:13 Note Text: Radiology Service Progress Note PATIENT NAME: Yokasta Pretty DATE OF SERVICE: April 27, 2025 TIME: 4:12 PM PATIENT IDENTITY VERIFICATION COMPLETED USING TWO (2) IDENTIFIERS: Name and Date of confirmed by patient verbally and Name and Date of confirmed by identification band. FALL SCREENING: Has the patient had 2 falls in the last year or 1 fall with injury or currently using an Ambulatory Assistive Device (Walker, Cane, Wheelchair, Crutches, etc.)? Inpatient: Screened on floor PATIENT GENDER DATA: Assigned female at . status: : Yes. Internal Quality Check OK. status: NO. PATIENT RELEVANT IMPLANT DATA REVIEWED: Yes PATIENT PRESENTS WITH AN IMPLANTABLE OR ATTACHED PET CARE WORKER: No RADIOLOGY DEPARTMENT: MR; Exam(s) Completed: Body: MRUrogram. Lavender Administered: No PERIPHERAL IV DATA: Inpatient: see LDA documentation SIGNED BY: OMAYRA Strong Tech April 27, 2025 4:12 PM Normal [facility] CBC panel Auto (Bld)on 04-27 Erythrocyte distribution width (RBC) [Ratio] 16.7 % High 11.5-15.0 [facility] Comment on above: Order Comment: George grimes Type: BLOOD SPECIMENOrdering Facility: [facility] [place] Address: [address] [place] [address] Performed By: #### 6 30-4, 84520-5 #### [facility] CLIA [id number] [address] STATES OF [facility] Hematocrit (Bld) [Volume fraction] 33.2 % Low 36.0-46.0 [facility] Comment on above: Order Comment: George grimes Type: BLOOD SPECIMENOrdering Facility: [facility] [place] Address: [address] [place] [address] Performed By: #### 6 30-4, 58969-2 #### [facility] CLIA [id number] [address] [place] Hemoglobin (Bld) [Mass/Vol] 10.7 g/dL Low 11.5-15.5 [facility] Comment on above: Order Comment: George grimes Type: BLOOD SPECIMENOrdering Facility: [facility] [place] Address: [address] [place] [address] Performed By: #### 6 30-4, 79397-8 #### [facility] CLIA [id number] [address] MCH (RBC) [Entitic mass] 27.4 pg Normal 26.0-34.0 [facility] Comment on above: Order Comment: Speci men Type: BLOOD SPECIMENOrdering Facility: [facility] [place] Address: [address] [place] [address] Performed By: #### 6 30-4, 97520-0 #### [facility] CLIA [id number] [address] MCHC (RBC) [Mass/Vol] 32.2 g/dL Normal 30.5-36.0 [facility] Comment on above: Order Comment: Speci men Type: BLOOD SPECIMENOrdering Facility: [facility] [place] Address: [address] [place] [address] Performed By: #### 6 30-4, 15316-3 #### [facility] CLIA [id number] [address] MCV (RBC) [Entitic vol] 85.1 fL Normal 80.0-100.0 [facility] Comment on above: Order Comment: Speci men Type: BLOOD SPECIMENOrdering Facility: [facility] [place] Address: [address] [place] [address] Performed By: #### 6 30-4, 92826-9 #### [facility] CLIA [id number] [address] Nucleated RBC (Bld) [#/Vol] 10*3/uL Normal <0.01 [facility] Comment on above: Order Comment: Speci men Type: BLOOD SPECIMENOrdering Facility: [facility] [place] Address: [address] [place] [address] Performed By: #### 6 30-4, 30223-2 #### [facility] CLIA [id number] [address] Platelet mean volume (Bld) [Entitic vol] 10.2 fL Normal 9.0-12.7 [facility] Comment on above: Order Comment: Speci men Type: BLOOD SPECIMENOrdering Facility: [facility] [place] Address: [address] [place] [address] Performed By: #### 6 30-4, 97305-2 #### [facility] CLIA [id number] [address] OF [facility] Platelets (Bld) [#/Vol] 317 10*3/uL Normal 150-400 [facility] Comment on above: Order Comment: Speci men Type: BLOOD SPECIMENOrdering Facility: [facility] [place] Address: [address] [place] [address] Performed By: #### 6 30-4, 59858-6 #### [facility] CLIA [id number] [address] [place] RBC (Bld) [#/Vol] 3.90 10*6/uL Normal 3.90-5.20 [facility] Comment on above: Order Comment: Speci men Type: BLOOD SPECIMENOrdering Facility: [facility] [place] Address: [address] [place] [address] Performed By: #### 6 30-4, 20926-9 #### [facility] CLIA [id number] [address] WBC (Bld) [#/Vol] 7.18 10*3/uL Normal 3.70-11.00 [facility] Comment on above: Order Comment: Speci men Type: BLOOD SPECIMENOrdering Facility: [facility] [place] Address: [address] [place] [address] Performed By: #### 6 30-4, 73281-2 #### [facility] CLIA [id number] [address] CONSULT PROGon 04-27-2025 CONSULT PROG HNO ID: [id number] Author: GABRIELLA SOTELO RPh Service: Pharmacy Author Type: Pharmacist Type: Consult Progress Note Filed: 04/27/2025 09:37 Note Text: PHARMACY VANCOMYCIN DOSING NOTE Patient Name: Yokasta Pretty Admission Date: 04/24/2025 Date of Consult: 04/27/2025 Time of Consult: 9:36 AM RECOMMENDATIONS/PLAN: Pharmacy consulted for vancomycin dosing for Yokasta Pretty, a 29 year old female. Vancomycin therapy has been discontinued. Vancomycin level(s) have been discontinued: Yes. The pharmacy vancomycin dosing service will sign off. Thank you for allowing us to participate in this patient's care. Please contact pharmacy if there are questions. Gabriella Sotelo [facility] Normal [facility] Comprehensive metabolic 2000 panelon 04-27-2025 Albumin [Mass/Vol] 3.3 g/dL Low 3.9-4.9 [facility] Comment on above: Order Comment: Speci men Type: URINE SPECIMEN [facility] [facility] [place] Address: [facility] [place] [address] Performed By: #### 6 30-4, 00665-0 #### [facility] CLIA [id number] [address] STATES OF [facility] ALP [Catalytic activity/Vol] 79 U/L Normal 34-123 [facility] Comment on above: Order Comment: Speci men Type: URINE SPECIMEN Ordering Facility: [facility] [place] Address: [facility] [place] [address] Performed By: #### 6 30-4, 70297-7 #### [facility] CLIA [id number] [address] [place] ALT With P-5'-P [Catalytic activity/Vol] 25 U/L Normal 7-38 [facility] Comment on above: Order Comment: Speci men Type: URINE SPECIMEN Ordering Facility: [facility] [place] Address: [address] [place] [address] Performed By: #### 6 30-4, 07341-6 #### [facility] CLIA [id number] [address] [place] Anion gap [Moles/Vol] 12 mmol/L Normal 8-15 [facility] Comment on above: Order Comment: Speci men Type: URINE SPECIMEN Ordering Facility: [facility] [place] Address: [address] [place] [address] Performed By: #### 6 30-4, 92131-5 #### [facility] CLIA [id number] 1 [place] [address] [place] AST With P-5'-P [Catalytic activity/Vol] Normal [facility] Comment on above: Order Comment: Speci men Type: URINE SPECIMEN Ordering Facility: [facility] [place] Address: [address] [place] [address] Result Comment: Unab le to assay due to interference from hemolysis. Suggest reorder as clinically indicated. Performed By: #### 6 30-4, 13837-4 #### [facility] CLIA [id number] 1 [place] [address] [place] Bilirubin [Mass/Vol] 0.2 mg/dL Normal 0.2-1.3 [facility] Comment on above: Order Comment: Speci men Type: URINE SPECIMEN Ordering Facility: [facility] [place] Address: [address] [place] [address] Performed By: #### 6 30-4, 34622-9 #### [facility] CLIA [id number] 1 [place] [address] [place] Calcium [Mass/Vol] 9.1 mg/dL Normal 8.5-10.2 [facility] Comment on above: Order Comment: Speci men Type: URINE SPECIMEN Ordering Facility: [facility] [place] Address: [address] [place] [address] Performed By: #### 6 30-4, 48555-7 #### [facility] CLIA [id number] 1 [place] [address] [place] Chloride [Moles/Vol] 104 mmol/L Normal 98-107 [facility] Comment on above: Order Comment: Speci men Type: URINE SPECIMEN Ordering Facility: [facility] [place] Address: [address] [place] [address] Performed By: #### 6 30-4, 74943-5 #### [facility] CLIA [id number] 1 [place] [address] [place] CO2 [Moles/Vol] 20 mmol/L Low 22-30 [facility] Comment on above: Order Comment: Speci men Type: URINE SPECIMEN Ordering Facility: [facility] [place] Address: [address] [place] [address] Performed By: #### 6 30-4, 86640-8 #### [facility] CLIA [id number] [address] Creatinine [Mass/Vol] 0.59 mg/dL Normal 0.58-0.96 [facility] Comment on above: Order Comment: Speci men Type: URINE SPECIMEN Ordering Facility: [facility] [place] Address: [address] [place] [address] Performed By: #### 6 30-4, 54220-2 #### [facility] CLIA [id number] [address] Creatinine and Glomerular filtration rate.predicted panel (S/P/Bld) 127 mL/min/1.73m??? Normal >=60 [facility] Comment on above: Order Comment: Speci men Type: URINE SPECIMEN Ordering Facility: [facility] [place] Address: [address] [place] [address] Result Comment: Yeimy mated Glomerular Filtration Rate (eGFR) is calculated using the 2020 CKD-EPI creatinine equation. This equation utilizes serum creatinine, sex, and age as parameters. The creatinine assay has traceable calibration to isotope dilution-mass spectrometry. Refer to KDIGO guidelines for clinical interpretation. In patients with unstable renal function, e.g. those with acute kidney injury, the eGFR may not accurately reflect actual GFR. Performed By: #### 6 30-4, 30640-6 #### [facility] CLIA [id number] [address] STATES OF [facility] Glucose [Mass/Vol] 97 mg/dL Normal 74-99 [facility] Comment on above: Order Comment: Speci men Type: URINE SPECIMEN Ordering Facility: [facility] [place] Address: [address] [place] [address] Result Comment: The [place] Diabetes Association (ADA) provides guidance for cutoff values for fasting glucose and random glucose. The ADA defines fasting as no caloric intake for at least 8 hours. Fasting plasma glucose results between 100 to 125 mg/dL indicate increased risk for diabetes (prediabetes). Fasting plasma glucose results greater than or equal to 126 mg/dL meet the criteria for diagnosis of diabetes. In the absence of unequivocal hyperglycemia, results should be confirmed by repeat testing. In a patient with classic symptoms of hyperglycemia or hyperglycemic crisis, random plasma glucose results greater than or equal to 200 mg/dL meet the criteria for diagnosis of diabetes. Reference: Standards of Medical Care in Diabetes 2016, [place] [employer]. Diabetes Care. 2016.39(Suppl 1). Performed By: #### 6 30-4, 76701-9 #### [facility] CLIA [id number] 1 [place] [address] [place] Potassium [Moles/Vol] 4.1 mmol/L Normal 3.7-5.1 [facility] Comment on above: Order Comment: Speci men Type: URINE SPECIMEN Ordering Facility: [facility] [place] Address: [address] [place] [address] Performed By: #### 6 30-4, 74157-9 #### [facility] CLIA [id number] 1 [place] [address] [place] Protein [Mass/Vol] 6.3 g/dL Normal 6.3-8.0 [facility] Comment on above: Order Comment: Speci men Type: URINE SPECIMEN Ordering Facility: [facility] [place] Address: [address] [place] [address] Performed By: #### 6 30-4, 16292-6 #### [facility] CLIA [id number] [address] [place] Sodium [Moles/Vol] 136 mmol/L Normal 136-144 [facility] Comment on above: Order Comment: Speci men Type: URINE SPECIMEN Ordering Facility: [facility] [place] Address: [address] [place] [address] Performed By: #### 6 30-4, 75801-3 #### [facility] CLIA [id number] [address] [place] Urea nitrogen [Mass/Vol] 6 mg/dL Low 7-21 [facility] Comment on above: Order Comment: Speci men Type: URINE SPECIMEN Ordering Facility: [facility] [place] Address: [address] [place] [address] Performed By: #### 6 30-4, 55101-8 #### [facility] CLIA [id number] [address] OF [facility] MRI ABDOMEN WO IVCONon 04-27 MRI ABDOMEN WO IVCON * * *Final Report* * * DATE OF EXAM: Apr 27 2025 4:56PM [facility] 0688 - MRI ABDOMEN WO IVCON / PROCEDURE REASON: Abdominal abscess/infection suspected * * * * Physician Interpretation * * * * MRI ABDOMEN AND PELVIS WITHOUT IV CONTRAST HISTORY: patient. Back pain with pyelonephritis. Assess for obstruction or nephrolithiasis. TECHNIQUE: Magnet: 1.5T scanner. Multiplanar MRI with multiple sequences MRI without IV contrast. Contrast: None COMPARISON: Renal ultrasound 04/24/2025 RESULT: Liver: Normal morphology. No hepatic steatosis. No mass. Biliary: No bile duct dilation. Gallbladder is absent. Spleen: No mass. No splenomegaly. Pancreas: No mass or duct dilation. Adrenals: No mass. Kidneys: No solid or cystic mass. No hydronephrosis. GI tract: No dilation or wall thickening. Lymph nodes: No abdominal or pelvic lymphadenopathy. Mesentery / Peritoneum / Retroperitoneum: No ascites or mass. Vasculature: No abdominal aortic aneurysm. Vessels are incompletely assessed due to lack of IV contrast. Pelvis: Intrauterine visualized. This examination is not optimized to assess for anatomy. Bladder: Unremarkable. Bones/Soft Tissues: No significant finding. Lower chest: Imaged portions unremarkable. IMPRESSION: No nephrolithiasis or hydronephrosis. No additional acute finding in the abdomen or pelvis. Intrauterine present. Please note this examination is not tailored to assess for anatomy. Please order dedicated anatomy imaging if necessary. Engine Dynamometer Tester: [facility] Transcribe Date/Time: Apr 28 2025 7:43A Dictated by : PRETTY ABDALLA MD This examination was interpreted and the report reviewed and electronically signed by: PRETTY ABDALLA MD on Apr 28 2025 8:29AM EST [id number] Normal [facility] MRI PELVIS BLADDER WO IVCONo n 04-27-2025 MRI PELVIS BLADDER WO IVCON * * *Final Report* * * DATE OF EXAM: Apr 27 2025 4:56PM [facility] 0771 - MRI PELVIS BLADDER WO IVCON / PROCEDURE REASON: Abdominal abscess/infection suspected * * * * Physician Interpretation * * * * MRI ABDOMEN AND PELVIS WITHOUT IV CONTRAST HISTORY: patient. Back pain with pyelonephritis. Assess for obstruction or nephrolithiasis. TECHNIQUE: Magnet: 1.5T scanner. Multiplanar MRI with multiple sequences MRI without IV contrast. Contrast: None COMPARISON: Renal ultrasound 04/24/2025 RESULT: Liver: Normal morphology. No hepatic steatosis. No mass. Biliary: No bile duct dilation. Gallbladder is absent. Spleen: No mass. No splenomegaly. Pancreas: No mass or duct dilation. Adrenals: No mass. Kidneys: No solid or cystic mass. No hydronephrosis. GI tract: No dilation or wall thickening. Lymph nodes: No abdominal or pelvic lymphadenopathy. Mesentery / Peritoneum / Retroperitoneum: No ascites or mass. Vasculature: No abdominal aortic aneurysm. Vessels are incompletely assessed due to lack of IV contrast. Pelvis: Intrauterine visualized. This examination is not optimized to assess for anatomy. Bladder: Unremarkable. Bones/Soft Tissues: No significant finding. Lower chest: Imaged portions unremarkable. IMPRESSION: No nephrolithiasis or hydronephrosis. No additional acute finding in the abdomen or pelvis. Intrauterine present. Please note this examination is not tailored to assess for anatomy. Please order dedicated anatomy imaging if necessary. Engine Dynamometer Tester: [facility] Transcribe Date/Time: Apr 28 2025 7:43A Dictated by : PRETTY ABDALLA MD This examination was interpreted and the report reviewed and electronically signed by: PRETTY ABDALLA MD on Apr 28 2025 8:29AM EST [id number] Normal [facility] CBC panel Auto (Bld)on 04-26 Erythrocyte distribution width (RBC) [Ratio] 16.7 % High 11.5-15.0 [facility] Comment on above: Order Comment: Speci men Type: URINE SPECIMEN Ordering Facility: [facility] [place] Address: [address] [place] [address] Performed By: #### 6 30-4, 79758-5 #### [facility] CLIA [id number] 1 [place] [address] [place] Hematocrit (Bld) [Volume fraction] 32.9 % Low 36.0-46.0 [facility] Comment on above: Order Comment: Speci men Type: URINE SPECIMEN Ordering Facility: [facility] [place] Address: [address] [place] [address] Performed By: #### 6 30-4, 78882-6 #### [facility] CLIA [id number] [address] OF [facility] Hemoglobin (Bld) [Mass/Vol] 10.5 g/dL Low 11.5-15.5 [facility] Comment on above: Order Comment: Speci men Type: URINE SPECIMEN Ordering Facility: [facility] [place] Address: [address] [place] [address] Performed By: #### 6 30-4, 68567-5 #### [facility] CLIA [id number] [address] [place] OF [facility] MCH (RBC) [Entitic mass] 27.2 pg Normal 26.0-34.0 [facility] Comment on above: Order Comment: Speci men Type: URINE SPECIMEN Ordering Facility: [facility] [place] Address: [address] [place] [address] Performed By: #### 6 30-4, 62018-1 #### [facility] CLIA [id number] [address] OF [facility] MCHC (RBC) [Mass/Vol] 31.9 g/dL Normal 30.5-36.0 [facility] Comment on above: Order Comment: Speci men Type: URINE SPECIMEN Ordering Facility: [facility] [place] Address: [address] [place] [address] Performed By: #### 6 30-4, 33190-7 #### [facility] CLIA [id number] [address] MCV (RBC) [Entitic vol] 85.2 fL Normal 80.0-100.0 [facility] Comment on above: Order Comment: Speci men Type: URINE SPECIMEN Ordering Facility: [facility] [place] Address: [address] [place] [address] Performed By: #### 6 30-4, 96759-4 #### [facility] CLIA [id number] [address] [place] Nucleated RBC (Bld) [#/Vol] 10*3/uL Normal <0.01 [facility] Comment on above: Order Comment: Speci men Type: URINE SPECIMEN Ordering Facility: [facility] [place] Address: [address] [place] [address] Performed By: #### 6 30-4, 05159-1 #### [facility] CLIA [id number] [address] [place] Platelet mean volume (Bld) [Entitic vol] 10.0 fL Normal 9.0-12.7 [facility] Comment on above: Order Comment: Speci men Type: URINE SPECIMEN Ordering Facility: [facility] [place] Address: [address] [place] [address] Performed By: #### 6 30-4, 29369-4 #### [facility] CLIA [id number] [address] OF [place] Platelets (Bld) [#/Vol] 317 10*3/uL Normal 150-400 [facility] Comment on above: Order Comment: Speci men Type: URINE SPECIMEN Ordering Facility: [facility] [place] Address: [address] [place] [address] Performed By: #### 6 30-4, 81323-2 #### [facility] CLIA [id number] [address] [place] RBC (Bld) [#/Vol] 3.86 10*6/uL Low 3.90-5.20 [facility] Comment on above: Order Comment: Speci men Type: URINE SPECIMEN Ordering Facility: [facility] [place] Address: [address] [place] [address] Performed By: #### 6 30-4, 34941-5 #### [facility] CLIA [id number] [address] [place] WBC (Bld) [#/Vol] 7.13 10*3/uL Normal 3.70-11.00 [facility] Comment on above: Order Comment: Speci men Type: URINE SPECIMEN Ordering Facility: [facility] [place] Address: [address] [place] [address] Performed By: #### 6 30-4, 83756-4 #### [facility] CLIA [id number] 1 [place] [address] [place] CONSULT PROGon 04-26-2025 CONSULT PROG HNO ID: [id number] Author: ROCKY NUNES RPh Service: Pharmacy Author Type: Pharmacist Type: Consult Progress Note Filed: 04/26/2025 07:34 Note Text: PHARMACY VANCOMYCIN DOSING NOTE Patient Name: Yokasta Pretty Admission Date: 04/24/2025 Date of Consult: 04/26/2025 Time of Consult: 7:31 AM Indication: Urinary tract infection Goal Range: 10-20 mcg/mL RECOMMENDATIONS/PLAN: Pharmacy consulted for vancomycin dosing for Yokasta Pretty, a 29 year old female. 1. Patient is currently ordered Vancomycin 1.75 g IV q12h. Today is day 1 of therapy. Pt is 23 weeks . UTi, suspected MRSA. No improvement with rocephin. Received first dose at 0130 on 01-27-25 2. No vancomycin level has been drawn for this dosing regimen. 3. The present dose of vancomycin is the recommended dosage for this patient at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 of Baby 3: Marcel Martinez Date: 03/13/22 GA: 40w0d Type: Vaginal, Spontaneous Apgar1: Not recorded Apgar5: Not recorded Living: Living Name of Baby 4: Not recorded Date: 10/15/23 GA: 37w6d Type: Vaginal, Spontaneous Apgar1: Not recorded Apgar5: Not recorded Living: Living Name of Baby 5: Not recorded Date: Not recorded GA: Not recorded Type: Not recorded Apgar1: Not recorded Apgar5: Not recorded Living: Not recorded ALLERGIES Allergen Reactions Abilify [Aripiprazo* Hives Prior to Admission Medications Prescriptions Last Dose Informant Patient Reported? Taking? Cholecalciferol, Vitamin D3, 125 mcg (5,000 unit) cap Yes Yes Si,000 Units once daily. acetaminophen (TYLENOL) 500 mg tablet Yes No Sig: Take by mouth. aspirin, enteric coated (ECOTRIN LOW STRENGTH) 81 mg EC tablet No Yes Sig: Take 1 tablet by mouth once daily. levothyroxine (SYNTHROID) 75 mcg tablet No Yes Sig: Take 0.5 tablets by mouth once daily. metFORMIN ER (GLUCOPHAGE XR) 500 mg 24 hr tablet Yes No Sig: Take 1 tablet by mouth every afternoon. nitrofurantoin monohydrate and macrocrystal (MACROBID) 100 mg capsule No No Sig: Take 1 capsule by mouth two times (more content not included)... Normal [facility] URINALYSIS, REFLEX MICROSCOP ICon 04-09-2025 Bacteria LM.HPF (Urine sed) [#/Area] Moderate Abnormal None Seen [facility] Comment on above: Order Comment: Speci men Type: URINE SPECIMEN Ordering Facility: [facility] [place] Address: [facility] [place] [address] Performed By: #### 6 30-4, 20673-5 #### [facility] CLIA [id number] [address] Bilirubin Ql (U) Negative Normal Negative [facility] Comment on above: Order Comment: Speci men Type: URINE SPECIMEN Ordering Facility: [facility] [place] Address: [address] [place] [address] Performed By: #### 6 30-4, 05046-1 #### [facility] CLIA [id number] [address] Clarity (Unsp spec) Turbid Abnormal Clear [facility] Comment on above: Order Comment: Speci men Type: URINE SPECIMEN Ordering Facility: [facility] [place] Address: [address] [place] [address] Performed By: #### 6 30-4, 98769-4 #### [facility] CLIA [id number] [address] Color (U) Yellow Normal yellow [facility] Comment on above: Order Comment: Speci men Type: URINE SPECIMEN Ordering Facility: [facility] [place] Address: [address] [place] [address] Performed By: #### 6 304, 87280-8 #### [facility] CLIA [id number] [address] Epithelial cells LM.HPF (Urine sed) [#/Area] Few Normal [facility] Comment on above: Order Comment: Speci men Type: URINE SPECIMEN Ordering Facility: [facility] [place] Address: [address] [place] [address] Performed By: #### 6 30-4, 26989-3 #### [facility] CLIA [id number] [address] OF [facility] Glucose Test strip (U) [Mass/Vol] Negative Normal Trace, Negative [facility] Comment on above: Order Comment: Speci men Type: URINE SPECIMEN Ordering Facility: [facility] [place] Address: [address] [place] [address] Performed By: #### 6 30-4, 38594-2 #### [facility] CLIA [id number] [address] Hemoglobin Ql (U) Negative Normal Negative, Trace [facility] Comment on above: Order Comment: Speci men Type: URINE SPECIMEN Ordering Facility: [facility] [place] Address: [address] [place] [address] Performed By: #### 6 30-4, 41466-7 #### [facility] CLIA [id number] [address] Ketones Ql (U) Negative Normal Negative, Trace [facility] Comment on above: Order Comment: Speci men Type: URINE SPECIMEN Ordering Facility: [facility] [place] Address: [address] [place] [address] Performed By: #### 6 30-4, 26488-4 #### [facility] CLIA [id number] [address] [place] Leukocyte esterase Test strip Ql (U) 500 Komal/uL Abnormal Negative, 25 Komal/uL [facility] Comment on above: Order Comment: Speci men Type: URINE SPECIMEN Ordering Facility: [facility] [place] Address: [address] [place] [address] Performed By: #### 6 30-4, 88721-7 #### [facility] CLIA [id number] [address] [place] Nitrite Ql (U) Negative Normal Negative [facility] Comment on above: Order Comment: Speci men Type: URINE SPECIMEN Ordering Facility: [facility] [place] Address: [address] [place] [address] Performed By: #### 6 30-4, 81562-6 #### [facility] CLIA [id number] [address] [place] pH (U) 6.5 [pH] Normal 5.0-8.0 [facility] Comment on above: Order Comment: Speci men Type: URINE SPECIMEN Ordering Facility: [facility] [place] Address: [address] [place] [address] Performed By: #### 6 30-4, 90739-2 #### [facility] CLIA [id number] [address] Protein (U) [Mass/Vol] Trace Normal Trace , Negative [facility] Comment on above: Order Comment: Speci men Type: URINE SPECIMEN Ordering Facility: [facility] [place] Address: [address] [place] [address] Performed By: #### 6 30-, 90889-9 #### [facility] CLIA [id number] [address] RBC LM.HPF (Urine sed) [#/Area] 6-10 /HPF Abnormal 0-3 /HPF [facility] Comment on above: Order Comment: Speci men Type: URINE SPECIMEN Ordering Facility: [facility] [place] Address: [address] [place] [address] Performed By: #### 6 30-, 97714-6 #### [facility] CLIA [id number] [address] Specific gravity (U) [Rel density] 1.021 Normal 1.005-1.030 [facility] Comment on above: Order Comment: Speci men Type: URINE SPECIMEN Ordering Facility: [facility] [place] Address: [address] [place] [address] Performed By: #### 6 30-, 29388-6 #### [facility] CLIA [id number] [address] Urobilinogen Ql (U) Normal Normal Normal [facility] Comment on above: Order Comment: Speci men Type: URINE SPECIMEN Ordering Facility: [facility] [place] Address: [address] [place] [address] Performed By: #### 6 30-, 77921-8 #### [facility] CLIA [id number] [address] [place] [address] [place] WBC LM.HPF (Urine sed) [#/Area] 11-25 /HPF Abnormal 0-5 /HPF [facility] Comment on above: Order Comment: Speci men Type: URINE SPECIMEN Ordering Facility: [facility] [place] Address: [address] [place] [id number] Performed By: #### 6 30-4, 43819-9 #### [facility] CLIA [id number] 1 [place] [id number] [place] [facility] US KIDNEY/BLADDERon 04-09-20 25 US KIDNEY/BLADDER * * *Final Report* * * DATE OF EXAM: Apr 09 2025 10:10PM [facility] 1055 - US KIDNEY/BLADDER / PROCEDURE REASON: Flank pain, kidney stone suspected * * * * Physician Interpretation * * * * EXAMINATION: US KIDNEY/BLADDER CLINICAL HISTORY: Flank pain, kidney stone suspected TECHNIQUE: Sonography of the kidneys and urinary bladder was performed. Images were obtained and stored in a permanent archive. MQ: UR_1 COMPARISON: OB ultrasound April 08, 2025 RESULT: Right Kidney: -Renal length: 14 cm -Parenchyma: Normal parenchymal echogenicity. Normal parenchymal thickness. -Collecting system: No hydronephrosis. -Calculus: No echogenic, shadowing calculus. -Lesion: None. Left Kidney: -Renal length: 12.2 cm -Parenchyma: Normal parenchymal echogenicity. Normal parenchymal thickness. -Collecting system: No hydronephrosis. -Calculus: No echogenic, shadowing calculus. -Lesion: None. Bladder: Normal sonographic appearance. Partially visualized gravid uterus. IMPRESSION: No hydronephrosis. Engine Dynamometer Tester: [facility] Transcribe Date/Time: Apr 09 2025 10:52P Dictated by : MERRITT CAVAZOS MD This examination was interpreted and the report reviewed and electronically signed by: MERRITT CAVAZOS MD on Apr 09 2025 10:58PM EST [id number] Normal [facility] Bacteria Ur Culton 5 Bacteria identified Cx Nom (U) ORGANISM ID: 1 10,000 -<50,000 CFU/ml Normal urogenital kilo Normal [facility] Comment on above: Performed By: #### 6 30-4 ####[facility] [id number] [place] [address] [place] Examination level ultrasound on 04-08-2025 Indication Detailed anatomic survey Maternal obesity, BMI >40 Impression The patient is referred for a detailed anatomic survey. - Single, live, intrauterine . - biometry is consistent with the established gestational age. - No malformations were visualized on a complete detailed anatomic survey. - The amniotic fluid volume is normal amount. - The placenta is anterior, fundal. - The Transabdominal cervical length measures 34.8 mm with no evidence of funneling or other dynamic changes. - Not all structural malformations can be detected by ultrasound examination. Recommendations Additional follow-up as clinically indicated. Maternal Assessment Height 173 cm Height (ft) 5 ft Height (in) 8 in Physical Exam Initial weight (lb) 275 lb Initial BMI 41.81 kg/m Maternal assessment other: 5 Para 2 REMOTE READ Method Transabdominal ultrasound examination. View: Suboptimal view: limited by maternal body habitus Rodgers . Number of fetuses: 1 Dating LMP on: 11/15/2024 GA by LMP 20 w + 4 d CLAUDIO by LMP: 08/22/2025 GA by prior assessment 20 w + 4 d CLAUDIO by prior assessment: 08/22/2025 Ultrasound examination on: 04/08/2025 GA by U/S based upon: AC, BPD, Femur, HC GA by U/S 21 w + 0 d CLAUDIO by U/S: 08/19/2025 Assigned: based on stated CLAUDIO, selected on 04/08/2025 Assigned GA 20 w + 4 d Assigned CLAUDIO: 08/22/2025 General Evaluation Cardiac activity present. FHR 139 bpm. movements: present. Presentation: cephalic Placenta: Placental site: anterior, fundal Umbilical cord: Cord vessels: 3 vessel cord Amniotic fluid: Amount of AF: normal amount. MVP 7.0 cm Growth Overview Exam date GA BPD (mm) HC (mm) AC (mm) FL (mm) HL (mm) EFW (g) 04/08/2025 20w 4d 49.5 66% 185.6 60% 162.3 68% 33.4 60% 31.6 48% 386 63% Biometry Standard BPD 49.5 mm 21w 0d 66% Hadlock OFD 65.1 mm 20w 4d 77% Nicolaides HC 185.6 mm 20w 6d 60% Emiliana Cerebellum tr 21.4 mm 20w 2d 57% Hill Nuchal fold 4.1 mm AC 162.3 mm 21w 2d 68% Hadlock Femur 33.4 mm 20w 5d 60% Emiliana Humerus 31.6 mm 20w 4d 48% Emiliana EFW 386 g 20w 6d 63% Hadlock EFW (lb) 0 lb EFW (oz) 14 oz EFW by: Hadlock (HC-AC-FL) Extended Panel Edge Sealer 6.7 mm CM 7.0 mm 93% Nicolaides Extremities / Bony Struc FL / HC 0.18 17% Hadlock Other Structures FHR 139 bpm Anatomy Cranium: normal Lateral ventricles: normal Choroid plexus: normal Midline falx: normal Cavum septi pellucidi: normal Cerebellum: normal Cisterna magna: normal Head / Neck Vermis: normal Neck: normal Nuchal fold: normal Lips: normal Profile: normal Nose: normal Face Maxilla: normal Mandible: normal Orbits: normal Lens: normal 4-chamber view: normal RVOT view: normal LVOT view: normal 3-vessel view: normal 4-tswkii-zxoreoh view: normal Heart / Thorax Situs: situs solitus (normal) Aortic arch view: normal SVC: normal IVC: normal Cardiac axis: normal Rt lung: normal Lt lung: normal Diaphragm: normal Cord insertion: normal Stomach: normal Kidneys: normal Bladder: normal Genitals: normal Abdomen Abdom. wall: normal Cervical spine: normal Thoracic spine: normal Lumbar spine: normal Sacral spine: normal Arms: normal Legs: normal Rt upper arm: normal Rt forearm: normal Rt hand: normal Rt fingers: normal Lt upper arm: normal Lt forearm: normal Lt hand: normal Lt fingers: normal Rt upper leg: normal Rt lower leg: normal Rt foot: normal Lt upper leg: normal Lt lower leg: normal Lt foot: normal sex: male Wants to know sex: yes Maternal Structures Uterus / Cervix Uterus: Visualized Cervix: Visualized Approach: Transabdominal Cervical length 34.8 mm Other: Patient declined transvaginal ultrasound for cervical length. Ovaries / Tubes / Adnexa Rt ovary: Visualized Lt ovary: Visualized Performed By: Sanaz Aponte RDMS, RVT Read By: Ping Sotomayor, M.D. MATERNAL MEDICINE [facility] Radiology Study observation (narrative) [facility] T4 Free SerPl-mCncon 025 Free T4 [Mass/Vol] 0.7 ng/dL Low 0.9-1.7 [facility] Comment on above: Order Comment: Speci men Type: BLOOD SPECIMENOrdering Facility: [facility] [place] Address: [address] [place] [address] Performed By: #### 3 016-3, 7 ####[facility] [id number] [place] [address] [place] TSH SerPl-aCncon 04-08-2025 TSH Qn 6.230 m[IU]/L High 0.270-4.200 [facility] Comment on above: Order Comment: Speci men Type: BLOOD SPECIMENOrdering Facility: [facility] [place] Address: [address] [place] [address] Result Comment: If t he patient is , TSH reference range varies by gestational period: First Trimester (weeks 9-12): 0.180-2.990 mIU/L Second Trimester: 0.110-3.980 mIU/L Third Trimester: 0.480-4.710 mIU/L Tonny Isaac et al. A Practical Approach for the Verifications and Determination of Site- and Trimester-Specific Reference Intervals for Thyroid Function tests in . Thyroid, 2019:29:3:412-420. Ronak E, et al. 2017 Guidelines of the [place] [employer] for the Diagnosis and Management of Thyroid Disease during and the . Thyroid, 2017:27:3:315-389. Performed By: #### 3 016-3, 3024-7 ####[facility] [id number] [place] [address] [place] UA DIP, URINE (POC)on 2024 BILIRUBIN UA (POCT) Negative Negative [facility] CLARITY UA (POCT) Cloudy [facility] COLOR UA (POCT) Dark yellow [facility] GLUCOSE UA (POCT) Negative Negative mg/dL [facility] Hemoglobin Ql (U) Trace-intact Abnormal Negative [facility] Interpretation and review of laboratory results Abnormal [facility] KETONE UA (POCT) Negative Negative mg/dL [facility] LEUKOCYTES UA (POCT) Large Abnormal Negative [facility] NITRITE UA (POCT) Negative Negative [facility] PH UA (POCT) 6 4.5 - 8.0 [facility] Protein Ql (U) 30 mg/dL Abnormal Negative [facility] SPECIFIC GRAVITY UA (POCT) 1.025 1.005 - 1.030 [facility] UROBILINOGEN UA (POCT) 0.2 Normal E.U./d L [facility] Location:[facility], [address], [place], [place], [id number] [place] [address] POINT OF CARE [facility] Bacteria Ur Culton 5 Bacteria identified Cx Nom (U) ORGANISM ID: 1 10,000 -<50,000 CFU/ml Normal urogenital kilo Normal [facility] Comment on above: Performed By: #### 6 30-4 ####[facility] [id number] [place] [address] [place] CBC W Auto Differential pane l (Bld)on 02-16-2025 Basophils (Bld) [#/Vol] 10*3/uL Normal <0.11 C [facility] Comment on above: Order Comment: Speci men Type: BLOOD SPECIMEN Ordering Facility: [facility] [place] Address: [address] [place] [address] Performed By: #### 3 024-7, 3016-3 #### [facility] CLIA [id number] [address] [place] [address] [place] Basophils/100 WBC (Bld) 0.1 % Normal C [facility] Comment on above: Order Comment: Speci men Type: BLOOD SPECIMEN Ordering Facility: [facility] [place] Address: [address] [place] [address] Performed By: #### 3 024-7, 3016-3 #### [facility] CLIA [id number] [address] [place], [place] [id number] [place] Differential cell count method Nom (Bld) Auto Normal [facility] Comment on above: Order Comment: Speci men Type: BLOOD SPECIMEN Ordering Facility: [facility] [place] Address: [address] [place] [address] Performed By: #### 3 024-7, 3016-3 #### [facility] CLIA [id number] [address] [place] [address] [place] Eosinophils (Bld) [#/Vol] 0.07 10*3/uL Normal <0.46 [facility] Comment on above: Order Comment: Speci men Type: BLOOD SPECIMEN Ordering Facility: [facility] [place] Address: [address] [place] [address] Performed By: #### 3 024-7, 6-3 #### [facility] CLIA [id number] [address] [place] [address] [place] Eosinophils/100 WBC (Bld) 0.8 % Normal [facility] Comment on above: Order Comment: Speci men Type: BLOOD SPECIMEN Ordering Facility: [facility] [place] Address: [address] [place] [address] Performed By: #### 3 024-7, 3016-3 #### [facility] CLIA [id number] [address] [place] [address] [place] Erythrocyte distribution width (RBC) [Ratio] 16.3 % High 11.5-15.0 [facility] Comment on above: Order Comment: Speci men Type: BLOOD SPECIMEN Ordering Facility: [facility] [place] Address: [address] [place] [address] Performed By: #### 3 024-7, 3016-3 #### [facility] CLIA [id number] [address] [place] [address] [place] Hematocrit (Bld) [Volume fraction] 34.5 % Low 36.0-46.0 [facility] Comment on above: Order Comment: Speci men Type: BLOOD SPECIMEN Ordering Facility: [facility] [place] Address: [address] [place] [address] Performed By: #### 3 024-7, 3016-3 #### [facility] CLIA [id number] [address] [place] [address] [place] Hemoglobin (Bld) [Mass/Vol] 11.6 g/dL Normal 11.5-15.5 [facility] Comment on above: Order Comment: Speci men Type: BLOOD SPECIMEN Ordering Facility: [facility] [place] Address: [address] [place] [address] Performed By: #### 3 024-7, 3016-3 #### [facility] CLIA [id number] [address] [place] [address] [place] Immature granulocytes (Bld) [#/Vol] 10*3/uL Normal <0.10 [facility] Comment on above: Order Comment: Speci men Type: BLOOD SPECIMEN Ordering Facility: [facility] [place] Address: [address] [place] [address] Performed By: #### 3 024-7, 3016-3 #### [facility] CLIA [id number] [address] [place] [address] [place] Immature granulocytes/100 WBC (Bld) 0.2 % Normal [facility] Comment on above: Order Comment: Speci men Type: BLOOD SPECIMEN Ordering Facility: [facility] [place] Address: [address] [place] [address] Performed By: #### 3 024-7, 3016-3 #### [facility] CLIA [id number] [address] [place] [address] [place] Lymphocytes (Bld) [#/Vol] 1.51 10*3/uL Normal 1.00-4.00 [facility] Comment on above: Order Comment: Speci men Type: BLOOD SPECIMEN Ordering Facility: [facility] [place] Address: [address] [place] [address] Performed By: #### 3 024-7, 3016-3 #### [facility] CLIA [id number] [address] [place] [address] [place] Lymphocytes/100 WBC (Bld) 18.2 % Normal [facility] Comment on above: Order Comment: Speci men Type: BLOOD SPECIMEN Ordering Facility: [facility] [place] Address: [address] [place] [address] Performed By: #### 3 024-7, 3015-3 #### [facility] CLIA [id number] [address] [place] [address] [place] MCH (RBC) [Entitic mass] 26.4 pg Normal 26.0-34.0 [facility] Comment on above: Order Comment: Speci men Type: BLOOD SPECIMEN Ordering Facility: [facility] [place] Address: [address] [place] [address] Performed By: #### 3 024-7, 3015-3 #### [facility] CLIA [id number] [address] [place] [address] [place] MCHC (RBC) [Mass/Vol] 33.6 g/dL Normal 30.5-36.0 [facility] Comment on above: Order Comment: Speci men Type: BLOOD SPECIMEN Ordering Facility: [facility] [place] Address: [address] [place] [address] Performed By: #### 3 024-7, 3015-3 #### [facility] CLIA [id number] [address] [place] [address] [place] MCV (RBC) [Entitic vol] 78.6 fL Low 80.0-100.0 C [facility] Comment on above: Order Comment: Speci men Type: BLOOD SPECIMEN Ordering Facility: [facility] [place] Address: [address] [place] [address] Performed By: #### 3 024-7, 3016-3 #### [facility] CLIA [id number] [address] [place] [address] [place] Monocytes (Bld) [#/Vol] 0.45 10*3/uL Normal <0.87 [facility] Comment on above: Order Comment: Speci men Type: BLOOD SPECIMEN Ordering Facility: [facility] [place] Address: [address] [place] [address] Performed By: #### 3 024-7, 3016-3 #### [facility] CLIA [id number] [address] [place] [address] [place] Monocytes/100 WBC (Bld) 5.4 % Normal [facility] Comment on above: Order Comment: Speci men Type: BLOOD SPECIMEN Ordering Facility: [facility] [place] Address: [address] [place] [address] Performed By: #### 3 024-7, 3016-3 #### [facility] CLIA [id number] [address] [place] [address] [place] Neutrophils (Bld) [#/Vol] 6.22 10*3/uL Normal 1.45-7.50 [facility] Comment on above: Order Comment: Speci men Type: BLOOD SPECIMEN Ordering Facility: [facility] [place] Address: [address] [place] [address] Performed By: #### 3 024-7, 3016-3 #### [facility] CLIA [id number] [address] [place] [address] [place] Neutrophils/100 WBC (Bld) 75.3 % Normal [facility] Comment on above: Order Comment: Speci men Type: BLOOD SPECIMEN Ordering Facility: [facility] [place] Address: [address] [place] [address] Performed By: #### 3 024-7, 3016-3 #### [facility] CLIA [id number] [address] [place] [address] [place] Nucleated RBC (Bld) [#/Vol] 10*3/uL Normal <0.01 [facility] Comment on above: Order Comment: Speci men Type: BLOOD SPECIMEN [facility] [facility] [place] Address: [address] [place], [place] [address] Performed By: #### 3 024-7, 3016-3 #### [facility] CLIA [id number] [address] [place] [address] [place] Nucleated RBC/100 WBC (Bld) [Ratio] 0.0 /100 WBC Normal [facility] Comment on above: Order Comment: Speci men Type: BLOOD SPECIMEN Ordering Facility: [facility] [place] Address: [address] [place], [place] [address] Performed By: #### 3 024-7, 3016-3 #### [facility] CLIA [id number] [address] [place] [address] [place] Platelet mean volume (Bld) [Entitic vol] 9.6 fL Normal 9.0-12.7 [facility] Comment on above: Order Comment: Speci men Type: BLOOD SPECIMEN Ordering Facility: [facility] [place] Address: [address] [place], [place] [address] Performed By: #### 3 024-7, 3016-3 #### [facility] CLIA [id number] [address] [place] [address] [place] Platelets (Bld) [#/Vol] 376 10*3/uL Normal 150-400 [facility] Comment on above: Order Comment: Speci men Type: BLOOD SPECIMEN Ordering Facility: [facility] [place] Address: [address] [place], [place] [address] Performed By: #### 3 024-7, 3016-3 #### [facility] CLIA [id number] [address] [place] [address] [place] RBC (Bld) [#/Vol] 4.39 10*6/uL Normal 3.90-5.20 [facility] Comment on above: Order Comment: Speci men Type: BLOOD SPECIMEN Ordering Facility: [facility] [place] Address: [address] [place] [address] Performed By: #### 3 024-7, 3016-3 #### [facility] CLIA [id number] [address] [place] [address] [place] WBC (Bld) [#/Vol] 8.28 10*3/uL Normal 3.70-11.00 [facility] Comment on above: Order Comment: Speci men Type: BLOOD SPECIMEN Ordering Facility: [facility] [place] Address: [address] [place] [address] Performed By: #### 3 024-7, 3016-3 #### [facility] CLIA [id number] [address] [place] [address] [place] Comprehensive metabolic 2000 panelon 02-16-2025 Albumin [Mass/Vol] 4.0 g/dL Normal 3.9-4.9 [facility] Comment on above: Order Comment: Speci men Type: BLOOD SPECIMEN Ordering Facility: [facility] [place] Address: [address] [place] [address] Performed By: #### 2 4323-8 #### [facility] CLIA [id number] [address] [place] [address] [place] ALP [Catalytic activity/Vol] 85 U/L Normal 34-123 [facility] Comment on above: Order Comment: Speci men Type: BLOOD SPECIMEN Ordering Facility: [facility] [place] Address: [address] [place] [address] Performed By: #### 2 4323-8 #### [facility] CLIA [id number] [address] [place] [address] [place] ALT [Catalytic activity/Vol] 31 U/L Normal 7-38 [facility] Comment on above: Order Comment: Speci men Type: BLOOD SPECIMEN Ordering Facility: [facility] [place] Address: [address] [place] [address] Performed By: #### 2 4323-8 #### [facility] CLIA [id number] [address] [place] [address] [place] Anion gap [Moles/Vol] 11 mmol/L Normal 8-15 [facility] Comment on above: Order Comment: Speci men Type: BLOOD SPECIMEN Ordering Facility: [facility] [place] Address: [address] [place] [address] Performed By: #### 2 4323-8 #### [facility] CLIA [id number] [address] [place] [address] [place] AST [Catalytic activity/Vol] 15 U/L Normal 13-35 [facility] Comment on above: Order Comment: Speci men Type: BLOOD SPECIMEN Ordering Facility: [facility] [place] Address: [address] [place] [address] Performed By: #### 2 4323-8 #### [facility] CLIA [id number] [address] [place] [address] [place] Bilirubin [Mass/Vol] 0.3 mg/dL Normal 0.2-1.3 [facility] Comment on above: Order Comment: Speci men Type: BLOOD SPECIMEN Ordering Facility: [facility] [place] Address: [address] [place] [address] Performed By: #### 2 4323-8 #### [facility] CLIA [id number] [address] [place] [address] [place] Calcium [Mass/Vol] 9.6 mg/dL Normal 8.5-10.2 [facility] Comment on above: Order Comment: Speci men Type: BLOOD SPECIMEN Ordering Facility: [facility] [place] Address: [address] [place] [address] Performed By: #### 2 4323-8 #### [facility] CLIA [id number] [address] [place] [address] [place] Chloride [Moles/Vol] 106 mmol/L Normal 98-107 [facility] Comment on above: Order Comment: Speci men Type: BLOOD SPECIMEN Ordering Facility: [facility] [place] Address: [address] [place] [address] Performed By: #### 2 4323-8 #### [id number] [address] [place] [address] [place] [facility] CO2 [Moles/Vol] 20 mmol/L Low 22-30 [facility] Comment on above: Order Comment: Speci men Type: BLOOD SPECIMEN Ordering Facility: [facility] [place] Address: [address] [place] [address] Performed By: #### 2 4323-8 #### [facility] CLIA [id number] [address] [place] [address] [place] Creatinine [Mass/Vol] 0.62 mg/dL Normal 0.58-0.96 [facility] Comment on above: Order Comment: Speci men Type: BLOOD SPECIMEN Ordering Facility: [facility] [place] Address: [address] [place] [address] Performed By: #### 2 4323-8 #### [facility] [id number] [address] [place] [address] Creatinine and Glomerular filtration rate.predicted panel (S/P/Bld) 125 mL/min/1.73m??? Normal >=60 [facility] Comment on above: Order Comment: Speci men Type: BLOOD SPECIMEN Ordering Facility: [facility] [place] Address: [address] [place] [address] Result Comment: Yeimy mated Glomerular Filtration Rate (eGFR) is calculated using the 2020 CKD-EPI creatinine equation. This equation utilizes serum creatinine, sex, and age as parameters. The creatinine assay has traceable calibration to isotope dilution-mass spectrometry. Refer to KDIGO guidelines for clinical interpretation. In patients with unstable renal function, e.g. those with acute kidney injury, the eGFR may not accurately reflect actual GFR. Performed By: #### 2 4323-8 #### [facility] CLIA [id number] [address] [place] [address] [place] Glucose [Mass/Vol] 92 mg/dL Normal 74-99 [facility] Comment on above: Order Comment: George grimes Type: BLOOD SPECIMEN Ordering Facility: [facility] [place] Address: [address] [place], [place] [address] Result Comment: The [place] Diabetes Association (ADA) provides guidance for cutoff values for fasting glucose and random glucose. The ADA defines fasting as no caloric intake for at least 8 hours. Fasting plasma glucose results between 100 to 125 mg/dL indicate increased risk for diabetes (prediabetes). Fasting plasma glucose results greater than or equal to 126 mg/dL meet the criteria for diagnosis of diabetes. In the absence of unequivocal hyperglycemia, results should be confirmed by repeat testing. In a patient with classic symptoms of hyperglycemia or hyperglycemic crisis, random plasma glucose results greater than or equal to 200 mg/dL meet the criteria for diagnosis of diabetes. Reference: Standards of Medical Care in Diabetes 2016, [place] Diabetes Association. Diabetes Care. 2016.39(Suppl 1). Performed By: #### 2 4323-8 #### [facility] [id number] [address] [place] [address] [place] Potassium [Moles/Vol] 4.0 mmol/L Normal 3.7-5.1 [facility] Comment on above: Order Comment: George grimes Type: BLOOD SPECIMEN Ordering Facility: [facility] [place] Address: [address] [place] [address] Performed By: #### 2 4323-8 #### [facility] [id number] [address] [place] [address] [place] Protein [Mass/Vol] 6.9 g/dL Normal 6.3-8.0 [facility] Comment on above: Order Comment: George grimes Type: BLOOD SPECIMEN Ordering Facility: [facility] [place] Address: [address] [place] [address] Performed By: #### 2 4323-8 #### [facility] CLIA [id number] [address] Sodium [Moles/Vol] 137 mmol/L Normal 136-144 [facility] Comment on above: Order Comment: Speci men Type: BLOOD SPECIMEN Ordering Facility: [facility] [place] Address: [address] [place] [id number] Performed By: #### 2 4323-8 #### [facility] CLIA [id number] [address] [place] [address] Urea nitrogen [Mass/Vol] 5 mg/dL Low 7-21 [facility] Comment on above: Order Comment: Speci men Type: BLOOD SPECIMEN Ordering Facility: [facility] [place] Address: [address] [place] [id number] Performed By: #### 2 4323-8 #### [facility] CLIA [id number] [address] [place] [address] OF [facility] Examination level ultrasound on 02-16-2025 Indication First trimester anatomic survey. Maternal obesity, BMI >40 Impression The patient is referred for a first trimester anatomy scan including nuchal translucency measurement as clinically indicated. - Single, live, intrauterine . - [place] rump length measurement is consistent with the established gestational age. - A qualitative screen of the nuchal translucency and other anatomic structures was unremarkable on incomplete first trimester anatomic assessment. - Not all structural malformations can be detected by ultrasound examination. Maternal Structures: Right Ovary: Size 38 mm x 24 mm x 21 mm Left Ovary: Size 35 mm x 13 mm x 22 mm Recommendations - A standard anatomic survey at 16 weeks can be offered and a detailed exam at 20 weeks is recommended for increased risk. Maternal Assessment Height 173 cm Height (ft) 5 ft Height (in) 8 in Physical Exam Initial weight (lb) 275 lb Initial BMI 41.81 kg/m Maternal assessment other: 5Para 2 Method Transabdominal ultrasound examination, Color Doppler examination. View: Suboptimal view: limited by maternal body habitus. Suboptimal view: limited by position Rodgers . Number of fetuses: 1 Dating LMP on: 11/15/2024 GA by LMP 13 w + 2 d CLAUDIO by LMP: 08/22/2025 GA by prior assessment 13 w + 2 d CLAUDIO by prior assessment: 08/22/2025 Ultrasound examination on: 02/16/2025 GA by U/S based upon: CRL GA by U/S 13 w + 2 d CLAUDIO by U/S: 08/22/2025 Assigned: based on the LMP, selected on 01/21/2025 Assigned GA 13 w + 2 d Assigned CLAUDIO: 08/22/2025 General Evaluation Cardiac activity present Placenta: anterior Cord vessels: 3 vessel cord Amniotic fluid: normal amount Biometry Standard FHR 147 bpm CRL 70.6 mm 13w 2d 44% [facility] First Trimester Anatomy Calvarium: normal Falx cerebri: normal Choroid plexus: normal Profile: normal Nasal bone: normal Retronasal triangle: normal Maxilla: normal Mandible: normal Nuchal translucency: Unremarkable Situs: normal Cardiac position: normal Cardiac axis: normal 4-chamber view: suboptimal 4-chamber view with color: suboptimal [id number] view: suboptimal Abdominal cord insertion: normal Stomach: normal Kidneys: suboptimal Bladder: normal Color doppler of perivesical umbilical arteries: normal Vertebral alignment: suboptimal Arms: normal Hands: normal Legs: normal Feet: normal Maternal Structures Uterus / Cervix Uterus: Visualized Uterus length 143 mm Uterus width 95 mm Uterus height 82 mm Uterus Vol 581.8 cm Ovaries / Tubes / Adnexa Rt ovary D1 38 mm Rt ovary D2 24 mm Rt ovary D3 21 mm Rt ovary Vol 9.9 cm Lt ovary D1 35 mm Lt ovary D2 13 mm Lt ovary D3 22 mm Lt ovary Vol 5.2 cm Performed By: Nanci Gooden RDMS Read By: Ping Sotomayor M.D. MATERNAL MEDICINE [facility] Radiology Study observation (narrative) [facility] HBV surface Ag Ser Qlon 01-30 HBV surface Ag Ql (S) Negative Normal Negative [facility] Comment on above: Order Comment: Speci men Type: BLOOD SPECIMENOrdering Facility: [facility] [place] Address: [address] [place] [address] Performed By: #### 3 1201-7, 5195-3, 64698-1 ####[facility] [id number] [place] [address] [place] HCV Ab Ser Qlon 02-16-2025 HCV Ab Ql (S) Negative Normal Negative [facility] Comment on above: Order Comment: Speci men Type: BLOOD SPECIMENOrdering Facility: [facility] [place] Address: [address] [place] [address] Result Comment: The result suggests no evidence of infection with Hepatitis C virus. Should recent infection be suspected, repeat testing may be considered 4-6 weeks after this draw. Performed By: #### 1 6128-1 ####[facility] [id number] [place] [address] [place] HIV 1+2 Ab IA Qlon HIV 1 and 2 Ab IA.rapid Nom (S/P/Bld) Normal [facility] Comment on above: Order Comment: Speci men Type: BLOOD SPECIMENOrdering Facility: [facility] [place] Address: [address] [place] [address] Result Comment: Test not indicated. Performed By: #### 3 1201-7, 5195-3, 42915-7 ####[facility] [id number] [place] [address] [place] HIV 1+2 Ab+HIV1 p24 Ag IA Ql Non-Reactive Normal Nonreactive [facility] Comment on above: Order Comment: Speci men Type: BLOOD SPECIMENOrdering Facility: [facility] [place] Address: [address] [place] [address] Performed By: #### 3 1201-7, 5195-3, 76444-0 ####[facility] [id number] [place] [address] [place] HIV immunoassay testing algorithm interpretation (S/P/Bld) [Interp] Normal [facility] Comment on above: Order Comment: Speci men Type: BLOOD SPECIMENOrdering Facility: [facility] [place] Address: [address] [place] [address] Result Comment: No e vidence of HIV-1 or HIV-2 infection. Should recent infection be suspected, repeat testing may be considered 2-3 weeks after this draw. [place] Rev. Code 3701.243(E): This information has been disclosed to you from confidential records protected from disclosure by state law. ???You shall make no further disclosure of this information without the specific, written, and informed release of the individual to whom it pertains or as otherwise permitted by state law. A general authorization for the release of medical or other information is not sufficient for the purpose of the release of HIV test results or diagnoses. Performed By: #### 3 1201-7, 5195-3, 21748-2 ####[facility] [id number] [facility] [place] HbA1c (Bld)on 02-16-2025 Average glucose Estimated from glycated hemoglobin (Bld) [Mass/Vol] 91 mg/dL Normal [facility] Comment on above: Order Comment: Speci men Type: BLOOD SPECIMEN Ordering Facility: [facility] [place] Address: [address] [place] [address] Result Comment: eAG: (Estimated average glucose) is a calculated value from HgbA1c and is sales representative womens health of the average blood glucose level in the last 2-3 month period. Performed By: #### 3 024-7, 3016-3 #### [facility] CLIA [id number] [address] [place] [address] STATES OF [facility] HbA1c (Bld) [Mass fraction] 4.8 % Normal 4.3-5.6 [facility] Comment on above: Order Comment: Speci men Type: BLOOD SPECIMEN Ordering Facility: [facility] [place] Address: [address] [place] [address] Result Comment: [place] Diabetes Association guidelines indicate that patients with HgbA1c in the range 5.7-6.4% are at increased risk for development of diabetes, and intervention by lifestyle modification may be beneficial. HgbA1c greater or equal to 6.5% is considered diagnostic of diabetes. Performed By: #### 3 024-7, 3016-3 #### [facility] CLIA [id number] [address] [place], [place] [address] [place] [id number] PLUSon 02-16-2025 Cell-free DNA./Cell-free DNA.total Dosage of chromosome-specific cfDNA (cfDNA) [Molar fraction] 13% Normal [facility] Comment on above: Order Comment: Speci men Type: BLOOD SPECIMEN Ordering Facility: [facility] [place] Address: [address] [place] [address] Performed By: #### 3 024-7, 3016-3 #### [facility] CLIA [id number] [address] [place] [address] OF HEAVEN Chr 13+18+21+X+Y aneuploidy Dosage of chromosome-specific cfDNA Ql (cfDNA) Negative Normal [facility] Comment on above: Order Comment: Speci men Type: BLOOD SPECIMEN Ordering Facility: [facility] [place] Address: [address] [place] [address] Performed By: #### 3 024-7, 3016-3 #### [facility] CLIA [id number] [address] [place] [address] Chr 21 trisomy Dosage of chromosome-specific cfDNA Ql (cfDNA) Negative Normal [facility] Comment on above: Order Comment: Speci men Type: BLOOD SPECIMEN Ordering Facility: [facility] [place] Address: [address] [place] [address] Performed By: #### 3 024-7, 3016-3 #### [facility] CLIA [id number] [address] [place] [address] OF HEAVEN Chr X and Y aneuploidy risk Sequencing Ql (cfDNA) [Interp] Not detected Normal [facility] Comment on above: Order Comment: Speci men Type: BLOOD SPECIMEN Ordering Facility: [facility] [place] Address: [address] [place] [address] Result Comment: Not Detected Not Detected Performed By: #### 3 024-7, 3016-3 #### [facility] CLIA [id number] [address] [place] [address] [place] Citation Renny (Reference lab test) Comment Normal [facility] Comment on above: Order Comment: Speci men Type: BLOOD SPECIMEN Ordering Facility: [facility] [place] Address: [address] [place] [address] Result Comment: 1. P vlad MAYEN, et al. [place] Med. 2012;14(3):296-305. 2. Brianne JIN et al. Prenat Diag. 2013;33(6):591-597. 3. Aime C, et al. Clin Chem. 2015 Apr;61(4):608-616. 4. Giancarlo MAYEN, et al. [place] Med. 2011;13(11):913-920. 5. ACOG/[facility] Practice Bulletin No. 226, Sep 2020. Performed By: #### 3 024-7, 3016-3 #### [facility] CLIA [id number] [address] [place] [address] [place] Gestational age Estimated from conception date Rodgers Normal [facility] Comment on above: Order Comment: Speci men Type: BLOOD SPECIMEN Ordering Facility: [facility] [place] Address: [address] [place] [address] Performed By: #### 3 024-7, 3016-3 #### [facility] CLIA [id number] [address] [place] [address] [place] GESTATIONALAGE AGE > OR = 9W Yes Normal [facility] Comment on above: Order Comment: Speci men Type: BLOOD SPECIMEN Ordering Facility: [facility] [place] Address: [address] [place] [address] Performed By: #### 3 024-7, 3016-3 #### [facility] CLIA [id number] [address] [place], [place] [address] [place] Laboratory comment Rneny (Report) Comment Normal [facility] Comment on above: Order Comment: Speci men Type: BLOOD SPECIMEN Ordering Facility: [facility] [place] Address: [address] [place] [address] Result Comment: The MaterniT(R) 21 PLUS laboratory-developed test (LDT) analyzes circulating cell-free DNA from a maternal blood sample. This test is used for screening purposes and not diagnostic. Clinical correlation is recommended. Validation data on twin pregnancies is limited and the ability of this test to detect aneuploidy in higher multiple gestations has not yet been validated. Performed By: #### 3 024-7, 3015-3 #### [facility] CLIA [id number] [address] [place] [address] OF [facility] director of research and development name Nom (Provider) Comment Normal [facility] Comment on above: Order Comment: Speci men Type: BLOOD SPECIMEN Ordering Facility: [facility] [place] Address: [address] [place] [address] Result Comment: This specimen showed an expected representation of chromosome 21, 18 and 13 material. Clinical correlation is suggested. Comment Saman Matthews MD, PhD, Director, [employer] Performed By: #### 3 024-7, 3 #### [facility] CLIA [id number] [address] [place] [address] LIMITATIONS OF THE TEST Comment Normal [facility] Comment on above: Order Comment: Speci men Type: BLOOD SPECIMEN Ordering Facility: [facility] [place] Address: [address] [place] [address] Result Comment: Ernestine child the results of these tests are highly reliable, discordant results, including inaccurate sex prediction, may occur due to placental, maternal, or mosaicism or neoplasm; vanishing twin; prior maternal organ transplant; or other causes. These tests are screening tests and not diagnostic; they do not replace the accuracy and precision of diagnosis with CVS or amniocentesis. A patient with a positive test result should be referred for genetic counseling and offered invasive diagnosis for confirmation of test results.[5] The results of this testing, including the benefits and limitations, should be discussed with a qualified healthcare provider. management decisions, including termination of the , should not be based on the results of these tests alone. The healthcare provider is responsible for the use of this information in the management of their patient. Sex chromosomal aneuploidies are not reportable for known multiple gestations. A negative result does not ensure an unaffected nor does it exclude the possibility of other chromosomal abnormalities or defects which are not a part of these tests. An uninformative result may be reported, the causes of which may include, but are not limited to, insufficient sequencing coverage, noise or artifacts in the region, amplification or sequencing bias, or insufficient fraction. These tests are not intended to identify pregnancies at risk for neural tube defects or ventral wall defects. Testing for whole chromosome abnormalities (including sex chromosomes) and for subchromosomal abnormalities could lead to the potential discovery of both and maternal genomic abnormalities that could have major, minor, or no, clinical significance. Evaluating the significance of a positive or a non-reportable result may involve both invasive testing and additional studies on the mother. Such investigations may lead to a diagnosis of maternal chromosomal or subchromosomal abnormalities, which on occasion may be associated with benign or malignant maternal neoplasms. These tests may not accurately identify triploidy, balanced rearrangements, or the precise location of subchromosomal duplications or deletions; these may be detected by diagnosis with CVS or amniocentesis. The ability to report results may be impacted by maternal BMI, maternal weight, maternal systemic lupus erythematosus (SLE) and/or by certain pharmaceutical agents such as low molecular weight heparin (for example: Lovenox(R), Xaparin(R), Clexane(R) and Fragmin(R)). Performed By: #### 3 024-7, 3016-3 #### [facility] CLIA [id number] [address] [place] [address] [place]AV[place] Monosomy X risk Dosage of chromosome-specific cfDNA Ql (Plasma cell-free+WBC DNA) [Interp] Not detected Normal [facility] Comment on above: Order Comment: George grimes Type: BLOOD SPECIMEN Ordering Facility: [facility] [place] Address: [address] [place] [address] Performed By: #### 3 024-7, 3016-3 #### [facility] CLIA [id number] [address] [place] [address] [place] NEGATIVE PREDICTIVE VALUE Note Normal [facility] Comment on above: Order Comment: George grimes Type: BLOOD SPECIMEN Ordering Facility: [facility] [place] Address: [address] [place] [address] Result Comment: The Negative Predictive Value (NPV) for trisomy 21, 18, and 13 is greater than 99%. The NPV for SCA and ESS cannot be calculated as SCA and ESS are only reported when an abnormality is detected. Performed By: #### 3 024-7, 3016-3 #### [facility] CLIA [id number] [address] [facility] [address] OF HEAVEN PERFORMANCE CHARACTERISTICS Note Normal [facility] Comment on above: Order Comment: George grimes Type: BLOOD SPECIMEN Ordering Facility: [facility] [place] Address: [address] [place] [address] Result Comment: ! Sex ! Accuracy: 99.4% ! ! ! ! Region (associated syndrome) ! Est. Sens# ! Est. Spec ! ! ! ! Trisomy 21 (Down Syndrome) ! 99.1% ! 99.9% ! ! ! ! Trisomy 18 (Yang Syndrome) ! >99.9% ! 99.6% ! ! ! ! Trisomy 13 (Patau Syndrome) ! 91.7% ! 99.7% ! ! ! ! Sex Chromosome Aneuploidies## ! 96.2% ! 99.7% ! ! ! * As reported in [facility] database nstd37 [https://www.ncbi.nlm.nih.gov/dbvar/studies/nstd37/ ] # Estimated Sensitivity. Sensitivity estimated across the observed size distribution of each syndrome [per [employer] database nstd37] and across the range of fractions observed in routine clinical NIPT. Actual sensitivity can also be influenced by other factors such as the size of the event, total sequence counts, amplification bias, or sequence bias. ## Rodgers gestation only. Performed By: #### 3 024-7, 6-3 #### [facility] CLIA [id number] [address] [place] [address] [place] POSITIVE PREDICTIVE VALUE N/A Normal [facility] Comment on above: Order Comment: George grimes Type: BLOOD SPECIMEN Ordering Facility: [facility] [place] Address: [address] [place] [address] Performed By: #### 3 024-7, 3016-3 #### [facility] CLIA [id number] [address] [place] [address] [place] Reference Lab Test Method Comment Normal [facility] Comment on above: Order Comment: George grimes Type: BLOOD SPECIMEN Ordering Facility: [facility] [place] Address: [address] [place] [address] Result Comment: See Notes Circulating cell-free DNA was purified from the plasma component of maternal blood. The extracted DNA was then converted into a genomic DNA library for aneuploidy analysis of chromosomes 21, 18, and 13 via next generation sequencing.[1] Optional findings based on the test order include sex chromosome aneuploidy (SCA)[2], and enhanced sequencing series (ESS)[3], which will only be reported on as an additional finding when an abnormality is detected. SCA testing includes information on X and Y representation, while ESS testing includes deletions in selected regions (22q, 15q, 11q, 8q, 5p, 4p, 1p) and trisomy of chromosomes 16 and 22. Performed By: #### 3 024-7, 3015-3 #### [facility] CLIA [id number] [address] [place] [address] [place] Service comment (Unsp spec) [Interp] Comment Normal [facility] Comment on above: Order Comment: Speci men Type: BLOOD SPECIMEN Ordering Facility: [facility] [place] Address: [address] [place] [address] Result Comment: See Notes link bird. is a subsidiary of [employer], using the brand [employer]. This test was developed and its performance characteristics determined by [employer]. It has not been cleared or approved by the Food and Drug Administration. This laboratory is certified under the Clinical Laboratory Improvement Amendments (CLIA) as qualified to perform high complexity clinical laboratory testing and accredited by the [employer] (CAP). If there is future clinical need for adding MaterniT GENOME testing, this specimen will be available until term. [facility] samples will not be retained beyond 60 days. [facility] patients will have to send a new sample for re-sequencing ([facility] Test Code: [id number]). Performed By: #### 3 024-7, 3 #### [facility] CLIA [id number] [address] [place] [address] [place] Sex Dosage of chromosome-specific cfDNA Nom (cfDNA) Comment Normal [facility] Comment on above: Order Comment: Speci men Type: BLOOD SPECIMEN Ordering Facility: [facility] [place] Address: [address] [place] [address] Result Comment: Cons istent with Male Performed By: #### 3 024-7, 3016-3 #### [facility] CLIA [id number] [address] [place] [address] [place] Test performance information Renny (Unsp spec) Comment Normal [facility] Comment on above: Order Comment: George grimes Type: BLOOD SPECIMEN Ordering Facility: [facility] [place] Address: [address] [place] [address] Result Comment: The performance characteristics of the MaterniT(R) 21 PLUS laboratory-developed test (LDT) have been determined in a clinical validation study with women at increased risk for chromosomal aneuploidy.[1-4] Performed By: #### 3 024-7, 3016-3 #### [facility] CLIA [id number] [address] [place] [address] [place] Trisomy 13 risk Dosage of chromosome-specific cfDNA Ql (cfDNA) [Interp] Negative Normal [facility] Comment on above: Order Comment: George grimes Type: BLOOD SPECIMEN Ordering Facility: [facility] [place] Address: [address] [place] [address] Performed By: #### 3 024-7, 3016-3 #### [facility] CLIA [id number] [address] [place] [address] [place] Trisomy 18 risk Dosage of chromosome-specific cfDNA Ql (Plasma cell-free+WBC DNA) [Interp] Negative Normal [facility] Comment on above: Order Comment: George grimes Type: BLOOD SPECIMEN Ordering Facility: [facility] [place] Address: [address] [place] [address] Performed By: #### 3 024-7, 3016-3 #### [facility] CLIA [id number] [address] [place] [address] [place] RUBELLA IGG ANTIBODYon 02-16 RUBELLA IGG AB, QUAL Negative Abnormal Positive [facility] Comment on above: Order Comment: George grimes Type: BLOOD SPECIMEN Ordering Facility: [facility] [place] Address: [address], [place] [address] Result Comment: The result suggests no history of Rubella vaccination or exposure to Rubella virus, however, some individuals with past history of Rubella vaccination may test negative using this test as immunity to Rubella virus wanes over time after vaccination. Please correlate with vaccination history if applicable. Performed By: #### 2 4323-8 #### [facility] CLIA [id number] [address] [place] [address] [place] Reagin and Treponema pallidu m IgG and IgM [Interp]on 02-16-2025 T. pallidum IgG+IgM IA Ql (S) Non-Reactive Normal Nonreactive [facility] Comment on above: Order Comment: Speci men Type: BLOOD SPECIMENOrdering Facility: [facility] [place] Address: [address] [place] [address] Performed By: #### 3 1201-7, 5195-3, 06936-6 ####[facility] [id number] [place] [address] [place] Reagin+T pallidum IgG+IgM Se rPl-Impon 02-16-2025 Reagin and Treponema pallidum IgG and IgM [Interp] Cannot exclude recent Treponemal infection if specimen collected within 7-10 days after appearance of suspect lesions or 2-3 weeks after an exposure. Clinical correlation is required. Normal [facility] Comment on above: Order Comment: Speci men Type: BLOOD SPECIMENOrdering Facility: [facility] [place] Address: [address] [place] [address] Performed By: #### 3 1201-7, 5195-3, 33408-7 ####[facility] [id number] [place] [id number] [place] T4 Free SerPl-mCncon 025 Free T4 [Mass/Vol] 0.8 ng/dL Low 0.9-1.7 [facility] Comment on above: Order Comment: Speci men Type: BLOOD SPECIMENOrdering Facility: [facility] [place] Address: [address] [place] [address] Performed By: #### 3 016-3, 3024-7 ####[facility] [id number] [place] [address] [place] TSH SerPl-aCncon 02-16-2025 TSH Qn 4.080 m[IU]/L Normal 0.270-4.200 [facility] Comment on above: Order Comment: Koreyi cornelio Type: BLOOD SPECIMENOrdering Facility: [facility] [place] Address: [address] [place] [address] Result Comment: If t he patient is , TSH reference range varies by gestational period: First Trimester (weeks 9-12): 0.180-2.990 mIU/L Second Trimester: 0.110-3.980 mIU/L Third Trimester: 0.480-4.710 mIU/L Tonny Isaac et al. A Practical Approach for the Verifications and Determination of Site- and Trimester-Specific Reference Intervals for Thyroid Function tests in . Thyroid, 2019:29:3:412-420. Ronak Child, et al. 2017 Guidelines of the [place] Thyroid Association for the Diagnosis and Management of Thyroid Disease during and the . Thyroid, 2017:27:3:315-389. Performed By: #### 3 016-3, 3024-7 ####[facility] [id number] [place] [address] [place] TYPE + SCREEN PRENATALon ABO O Normal [facility] Comment on above: Order Comment: George grimes Type: BLOOD SPECIMEN Ordering Facility: [facility] [place] Address: [address] [place] [address] Performed By: #### 2 4323-8 #### [id number] [address] [place] [address] [place] Rh Nom (Bld) Positive Normal [facility] Comment on above: Order Comment: George grimes Type: BLOOD SPECIMEN Ordering Facility: [facility] [place] Address: [address] [place] [address] Performed By: #### 2 4323-8 #### [facility] CLIA [id number] [address] [place] [address] [place] TYPE AND SCREEN EXPIRATION 02/19/2025 23:59 Normal [facility] Comment on above: Order Comment: Speci men Type: BLOOD SPECIMEN Ordering Facility: [facility] [place] Address: [address] [place] [address] [place] [address] Performed By: #### 2 4323-8 #### [facility] CLIA [id number] [address] [place] [address] [place] UA DIP, URINE (POC)on 2024 BILIRUBIN UA (POCT) Negative Negative [facility] CLARITY UA (POCT) Clear [facility] COLOR UA (POCT) Yellow [facility] GLUCOSE UA (POCT) Negative Negative mg/dL [facility] Hemoglobin Ql (U) Negative Negative [facility] Interpretation and review of laboratory results Abnormal [facility] KETONE UA (POCT) Negative Negative mg/dL [facility] LEUKOCYTES UA (POCT) Moderate Abnormal Negative [facility] NITRITE UA (POCT) Negative Negative [facility] PH UA (POCT) 6.5 4.5 - 8.0 [facility] Protein Ql (U) Negative Negative mg/dL [facility] SPECIFIC GRAVITY UA (POCT) <=1.005 Abnormal 1.005 - 1.030 [facility] UROBILINOGEN UA (POCT) 0.2 Normal E.U./d L [facility] Location:[facility], [address] [facility], [place], [place], [id number] [place] [address] POINT OF CARE [facility] CNPMargo 01-22-2025 CNPN Telephone ([id number]) YOKASTA PRETTY ([id number]) 1995 F Date Time Provider Department 01/22/25 FUNMILAYO PICKENS [id number] During your visit today, we recorded the following information about you: Funmilayo Pickens RN 01/22/2025 10:22 AM Signed 1st risk assessment form submitted 01/22/2025. 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 - nitrofurantoin monohydrate and macrocrystal (MACROBID) 100 mg capsule Take 1 capsule by mouth two times a day for 7 days. - vits62/FA/om3/dha/epa ( GUMMY ORAL) Take 1 Piece by mouth once daily. - metFORMIN ER (GLUCOPHAGE XR) 500 mg 24 hr tablet Take 1 tablet by mouth every afternoon. - levothyroxine (SYNTHROID) 25 mcg tablet Take 25 mcg by mouth once daily. - Cholecalciferol, Vitamin D3, 125 mcg (5,000 unit) cap 5,000 Units once daily. - acetaminophen (TYLENOL) 500 mg tablet Take by mouth. Problem List As Of Date 01/22/2025 Noted Resolved Encounter for supervision of high risk pregnanc*03/25/2023 History of depression [Z87.59, Z86.5*03/25/2023 History of depression [Z86.59] 03/25/2023 History of fatty infiltration of liver [Z87.19] 03/25/2023 Obesity affecting in first trimester *03/25/2023 Family history of defect [Z82.79] 03/25/2023 Anxiety disorder affecting , antepartu*01/21/2025 Hypothyroidism affecting in first tri*01/21/2025 History of trauma [Z87.828] 01/21/2025 Borderline personality disorder (HCC) [F60.3] 01/21/2025 PCOS (polycystic ovarian syndrome) [E28.2] Nausea and vomiting during [O21.9] 01/21/2025 PTSD (post-traumatic stress disorder) [F43.10] 01/21/2025 Dizziness [R42] 01/21/2025 History of miscarriage [Z87.59] 01/21/2025 Dysuria during , antepartum [O26.899, *01/21/2025 Encounter Status:Closed by FUNMILAYO PICKENS on 01/22/25 [facility] Bacteria Ur Culton Bacteria identified Cx Nom (U) CULTURE, URINE: Mixed microbiota, including predominantly: ORGANISM ID: 1 >=100,000 CFU/ml Staphylococcus aureus ORGANISM ID: 1 (STAPHYLOCOCCUS AUREUS) -- ANTIBIOTIC INTERPRETATION SHIVANI STATUS REFERENCE RANGE -- Oxacillin S <=0.25 F Susceptible <=2 , Resistant >2 Oxacillin-susceptible staphylococci are susceptible to other penicilllinase-stable penicillins, beta-lactam/beta-lacta nicolas inhibitor combinations, anti-staphylococcal cephems, and carbapenems. Trimeth sulfameth S <=10 F Susceptible <=40 , Resistant >40 Vancomycin S <=0.5 F Susceptible <=2 , Intermediate >2 , Resistant >8 Rifampin S <=0.5 F Susceptible <=1 , Intermediate >1 , Resistant >2 Rifampin should not be used alone for antimicrobial therapy. Tetracycline S <=1 F Susceptible <=4 , Intermediate >4 , Resistant >8 Doxycycline S <=0.5 F Susceptible <=4 , Intermediate >4 , Resistant >8 Nitrofurantoin S <=16 F Susceptible <=32 , Intermediate >32 , Resistant >64 Abnormal [facility] Comment on above: Performed By: #### 6 30-4 ####[facility] [id number] [place] [address] [place] C. trachomatis+N. gonorrhoea e DNA KOLE+probe Ql (Unsp spec)on 01-21-2025 C. trachomatis rRNA KOLE+probe Ql (Unsp spec) Not detected Normal Not detected [facility] Comment on above: Order Comment: Speci men Type: SWABOrdering Facility: [facility] [place] Address: [address] [place] [address] Performed By: #### 3 6902-5, TRVAMP ####[facility] [id number] [place] [address] [place] N. gonorrhoeae rRNA KOLE+probe Ql (Unsp spec) Not detected Normal Not detected [facility] Comment on above: Order Comment: Speci men Type: SWABOrdering Facility: [facility] [place] Address: [address] [place] [address] Performed By: #### 3 6902-5, TRVAMP ####[facility] [id number] [place] [address] [place] PAP TESTon 01-21-2025 ADEQUACY Normal [facility] Comment on above: Order Comment: Speci men Type: BLOOD SPECIMEN Ordering Facility: [facility] [place] Address: [address] [place] [address] Result Comment: Sati sfactory for interpretation. No endocervical component Performed By: #### 2 4323-8 #### [facility] CLIA [id number] [address] [place] [address] [place] CASE REPORT Normal [facility] Comment on above: Order Comment: Speci men Type: BLOOD SPECIMEN Ordering Facility: [facility] [place] Address: [address] [place] [address] Result Comment: Gyne cologic Cytology Report Case: [id number] Authorizing Provider: Judit Pimentel APRN.DROSSER Collected: 01/21/2025 10:18 AM Ordering Location: OB/Gynecology Received: 01/21/2025 12:16 PM First Screen: Paramjit, Areli, CT, ASCP Rescreen: Charlie [place] Tech Specimen: Pap Test, ThinPrep, Cervix Performed By: #### 2 4323-8 #### [facility] CLIA [id number] [address] [place] [address] [place] CLINICAL HISTORY, CYTOLOGY, SENIOR ELECTRONICS ENGINEER Routine Exam Normal [facility] Comment on above: Order Comment: Speci men Type: BLOOD SPECIMEN Ordering Facility: [facility] [place] Address: [address] [place] [address] Performed By: #### 2 4323-8 #### [facility] CLIA [id number] [address] [place] [address] [place] FINAL PERFORMING LAB Normal [facility] Comment on above: Order Comment: Speci men Type: BLOOD SPECIMEN Ordering Facility: [facility] [place] Address: [address] [place] [address] Result Comment: Tech nical component, health technician screening performed at [facility], [address] [place], [place] [address] CLIA# [id number] Diagnostic interpretation performed at [facility], [address] [place], [place] [address] CLIA# [id number] Micropaleontologist: Lázaro Lorenzana M.D. Performed By: #### 2 4323-8 #### [facility] CLIA [id number] [address] [place] [address] [place] INTERPRETATION, CYTOLOGY, SENIOR ELECTRONICS ENGINEER Normal [facility] Comment on above: Order Comment: Speci men Type: BLOOD SPECIMEN Ordering Facility: [facility] [place] Address: [address] [place] [address] Result Comment: Nega tive for intraepithelial lesion or malignancy. at 0846 EST Performed By: #### 2 4323-8 #### [facility] CLIA [id number] [address] [place] [address] OF HEAVEN LMP 11/15/2024 Normal [facility] Comment on above: Order Comment: Speci men Type: BLOOD SPECIMEN Ordering Facility: [facility] [place] Address: [address] [place] [id number] Performed By: #### 2 4323-8 #### [facility] CLIA [id number] [address] [place] [address] [place] HE[place]EN PAP DISCLAIMER COMMENT The Pap Smear is a screening test for cervical cancer. False negative results occur with all screening tests, emphasizing the need for rescreening at recommended intervals, and clinical correlation. Normal [facility] Comment on above: Order Comment: Speci men Type: BLOOD SPECIMEN Ordering Facility: [facility] [place] Address: [address] [place] [id number] Performed By: #### 2 4323-8 #### [facility] CLIA [id number] [address] [place] [address] [place] PAP SENIOR CLERK COMMENT This specimen has be en analyzed by the ThinPrep Imaging System, an automated imaging and review system, which assists the laboratory in evaluating cells on ThinPrep Pap tests. Following automated imaging, selected orosco from every slide are reviewed by a health technician. Normal [facility] Comment on above: Order Comment: Speci men Type: BLOOD SPECIMEN Ordering Facility: [facility] [place] Address: [address] [place] [address] Performed By: #### 2 4323-8 #### [facility] CLIA [id number] [address] [place] [address] [place] POC PLANISHING HAMMER OPERATOR ULTRASOUNDon 01-21-20 Indication Viability; confirm cardiac activity Impression Single intrauterine gestational sac, CRL is appropriate for clinical dates, corresponding to CLAUDIO 08/22/2025 cardiac activity is visualized Recommendations Follow up for 1st Trimester Anatomy with Nuchal Translucency as clinically indicated if desired. Method Transabdominal ultrasound examination, Transvaginal ultrasound examination. View: Adequate visualization Rodgers . Number of embryos: 1 Dating LMP on: 11/15/2024 GA by LMP 9 w + 4 d CLAUDIO by LMP: 08/22/2025 Ultrasound examination on: 01/21/2025 GA by U/S based upon: CRL GA by U/S 9 w + 3 d CLAUDIO by U/S: 08/23/2025 Assigned: based on the LMP, selected on 01/21/2025 Assigned GA 9 w + 4 d Assigned CLAUDIO: 08/22/2025 Biometry Standard FHR 171 bpm CRL 26.6 mm 9w 3d 30% Hadlock Assessment Gestational sac: visualized Location: intrauterine Yolk sac: visualized Embryo: visualized CRL 26.6 mm 9w 3d 30% Hadlock Cardiac activity: present FHR 171 bpm General Evaluation Cardiac activity present. FHR 171 bpm Performed By: Judit Pimentel NP Read By: Judit Pimentel NP MATERNAL MEDICINE [facility] Radiology Study observation (narrative) [facility] TRICHOMONAS VAGINALIS NAATon 01-21-2025 T. vaginalis DNA KOLE+probe Ql (Unsp spec) Not detected Normal Not detected [facility] Comment on above: Order Comment: Speci men Type: SWABOrdering Facility: [facility] [place] Address: [address] [place] [address] Performed By: #### 3 6902-5, TRMANPREET ####[facility] [id number] [place] [address] [place] UA DIP, URINE (POC)on 2024 BILIRUBIN UA (POCT) Negative Negative [facility] CLARITY UA (POCT) Clear [facility] COLOR UA (POCT) Yellow [facility] GLUCOSE UA (POCT) Negative Negative mg/dL [facility] Hemoglobin Ql (U) Trace-intact Abnormal Negative [facility] Hospital Interpretation and review of laboratory results Abnormal [facility] KETONE UA (POCT) Negative Negative mg/dL [facility] LEUKOCYTES UA (POCT) Moderate Abnormal Negative [facility] NITRITE UA (POCT) Positive Abnormal Negative [facility] PH UA (POCT) 6 4.5 - 8.0 [facility] Protein Ql (U) 30 mg/dL Abnormal Negative [facility] SPECIFIC GRAVITY UA (POCT) >=1.030 1.005 - 1.030 [facility] UROBILINOGEN UA (POCT) 0.2 Normal E.U./d L [facility] Location:[facility], [address], [place], [place], [id number] [place] [address] POINT OF CARE [facility] CNPNon 01-04-2025 CNPN Telephone (OBGYWM) YOKASTA PRETTY ([id number]) 1995 F Date Time Provider Department 01/04/25 RADHA ROWELL OBGY During your visit today, we recorded the following information about you: Kelly Lundberg RN 01/04/2025 2:47 PM Signed ----- Message from Radha Rowell MD sent at 01/04/2025 2:22 PM EST ----- Scheduled for VV to discsuss tubal. has she signed title 19? If not make sure she knows has to be 30 days from then for tubal. It is only good for 30 days to 180 days after signature. RLR Kelly Lundberg RN 01/04/2025 2:48 PM Signed Left message for patient to call office. See note below, she has not signed title 19. STACIA Clark Lindsey, RN 01/04/2025 3:00 PM Signed Patient notified and voiced understanding. Appointment changed to in office and appointment notes updated to get title 19. Sanaz Arredondo RN Allergies As of Date: 01/04/2025 Noted Allergy Reaction ABILIFY (ARIPIPRAZOLE) 03/05/2016 4 - Hives Date Reviewed: 12/23/2024 Reviewed by: Quinten Issa MA - Fully Assessed Reason for Visit: Appointment [[id number]] Prescriptions as of 01/04/2025 - metFORMIN ER (GLUCOPHAGE XR) 500 mg 24 hr tablet Take 1 tablet by mouth every afternoon. - levothyroxine (SYNTHROID) 25 mcg tablet Take 25 mcg by mouth once daily. - Cholecalciferol, Vitamin D3, 125 mcg (5,000 unit) cap 5,000 Units once daily. - semaglutide, weight loss, (WEGOVY) 0.25 mg/0.5 mL pen injector Inject 0.25 mg subcutaneously one time a week. - omeprazole (PRILOSEC) 20 mg capsule Take 1 capsule by mouth once daily. - acetaminophen (TYLENOL) 500 mg tablet Take by mouth. - VENTOLIN HFA 90 mcg/actuation inhaler Problem List As Of Date 01/04/2025 Noted Resolved with care elsewhere, antepar*03/25/2023 Dysuria during , antepartum [O26.899, *03/25/2023 Short interval between pregnancies affecting pr*03/25/2023 History of depression [Z87.59, Z86.5*03/25/2023 History of depression [Z86.59] 03/25/2023 History of fatty infiltration of liver [Z87.19] 03/25/2023 Obesity affecting , antepartum [O99.21*03/25/2023 Patient request for diagnostic testing [Z01.89] 03/25/2023 Family history of defect [Z82.79] 03/25/2023 GBS (group B Streptococcus carrier), +RV cultur*10/03/2023 Encounter Status:Closed by SANAZ ARREDONDO on 01/04/25 Normal [facility] Urine Cultureon 12-25-2024 [facility] Staphylococcus aureu s [place] Count 25,000-50,000 Staphylococcus aureus: REACTION cefOXitin Susc Islt Doxycycline Islt SHIVANI <=0.5 S Clindamycin.induced Susc Islt NEG Gentamicin Islt SHIVANI <=0.5 S Linezolid Islt SHIVANI 2 S Moxifloxacin Islt SHIVANI <=0.25 S Nitrofurantoin Islt SHIVANI <=16 S Oxacillin Susc Islt <=0.25 S Tetracycline Islt SHIVANI <=1 S TMP SMX Islt SHIVANI <=10 S Vancomycin Islt SHIVANI <=0.[address] [facility] Comment on above: Performed By: #### L 500.4050, L700.6800, L100.0100 #### [facility] [address] [place], [address] Testosterone, Total / Freeon 12-24-2024 TESTOSTER,FREE TNP Normal . [facility] Comment on above: Order Comment: N Result Comment: Unab le to calculate result since non-numeric result obtained for component test. Performed By: #### L 500.4050, L700.6800, L100.0100 #### [facility] [address] [place], [address] TESTOSTER,TOTAL 64 ng/dL Normal 13-71 [facility] Comment on above: Order Comment: N Performed By: #### L 500.4050, L700.6800, L100.0100 #### [facility] [address] [place], [address] TESTOSTERONE,%F TNP Normal . [facility] Comment on above: Order Comment: N Result Comment: Spec imen quantity insufficient for verification by repeat analysis. CONTACTED CARY Abrams AT YOUR FACILITY ON 12-24-2024 Performed By: #### L 500.4050, L700.6800, L100.0100 #### [facility] [address] [place], [address] CNOVon 12-23-2024 CNOV Office Visit (OBGYWM ) YOKASTA PRETTY ([id number]) 1995 F Date Time Provider Department 12/23/24 3:30 PM ARI BLUM OBGYWM During your visit today, we recorded the following information about you: Blood pressure Weight 118/76 128.8 kg Ari Blum APRN.CNM 12/23/2024 4:07 PM Signed CONTRACEPTION Yokasta Pretty is a 29 year old who presents today for contraception counseling. She initially was thinking about and IUD but has decided that she would like her tubes removed. Patient's last menstrual period was 01/23/2023 (exact date).. HPI: Dysmenorrhea No Heavy menses No Irregular menses Yes- has skipped months at a time. Dx PCOS SUBJECTIVE Sexually active: Yes Smoking No Last PAP 2022- OB- negative Method of control: condoms unsatisfactory Methods tried previously: oral contraceptives unsatisfactory Patient currently interested in: tubal ligation Interested in in the next 3 years? No Date of last test: Not applicable Date of last STD testing? N/a Relevant Past Medical History: History of migraines, obesity OB History T2 L2 SAB2 IAB0 Ectopic0 Multiple0 Live Births2 PAST MEDICAL HISTORY Diagnosis Date Anxiety Asthma Bipolar depression (HCC) Depression Fatty liver depression PAST SURGICAL HISTORY Procedure Laterality Date LAPAROSCOPIC CHOLECYSTECTOMY PAST SURGICAL HISTORY OF wisdom teeth TONSILLECTOMY AND ADENOIDECTOMY FAMILY HISTORY Problem Relation Age of Onset Hypertension Mother No Known Problems Father No Known Problems Maternal Grandmother Lung Cancer Maternal Grandfather Heart Attack Paternal Grandmother Stroke Paternal Grandmother No Known Problems Paternal Grandfather ADD/ADHD Half-sister ADD/ADHD Half-sister ADD/ADHD Half-brother No Known Problems Half-brother No Known Problems Half-brother No Known Problems Half-brother No Known Problems Half-brother No Known Problems Half-brother No Known Problems Half-brother No Known Problems Half-brother No Known Problems Half-brother SOCIAL HISTORY Social History Tobacco Use Smoking status: Former Current packs/day: 0.00 Types: Cigarettes Start date: 04/08/2015 Quit date: 04/08/2020 Years since quittin.7 Smokeless tobacco: Never Vaping Use Vaping status: Former Quit date: 12/25/2022 Substances: Nicotine Substance Use Topics Alcohol use: Not Currently Comment: Socially Drug use: Never PAST SURGICAL HISTORY Procedure Laterality Date LAPAROSCOPIC CHOLECYSTECTOMY PAST SURGICAL HISTORY OF wisdom teeth TONSILLECTOMY AND ADENOIDECTOMY Current Outpatient Medications Medication Sig omeprazole (PRILOSEC) 20 mg capsule Take 1 capsule by mouth once daily. acetaminophen (TYLENOL) 500 mg tablet Take by mouth. VENTOLIN HFA 90 mcg/actuation inhaler No current facility-administered medications for this visit. Allergies As of Date: 12/23/2024 Allergen Noted Reaction ABILIFY [ARIPIPRAZOLE] 03/05/2016 Hives Fully Assessed 11/30/2024 SENSITIVE EXAM: Sensitive exam not performed. OBJECTIVE: General Appearance: Well appearing, alert, in no acute distress, well-hydrated, well nourished. and Obese ASSESSMENT/PLAN: 1. 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 BMI 40.0-44.9, adult ([facility]) 3. History of PCOS - Just starting weight loss program - Metformin 500 mg PO Daily - Semaglutide injections- just starting - Desires sterilization - RTO - virtual visit with Dr. Rowell to discuss/schedule (per patient's choice) Ari Blum APRN.CNM Allergies As of Date: 12/23/2024 Noted Allergy Reaction ABILIFY (ARIPIPRAZOLE) 03/05/2016 4 - Hives Date Reviewed: 12/23/2024 Reviewed by: Quinten Issa MA - Fully Assessed Primary Visit Diagnosis:Maternal obesity syndrome in third trimester [O99.213] Other Visit Diagnoses:BMI 40.0-44.9, adult ([facility]) [Z68.41] History of PCOS [Z87.42] Prescriptions as of 12/23/2024 - metFORMIN ER (GLUCOPHAGE XR) 500 mg 24 hr tablet Take 1 tablet by mouth every afternoon. - levothyroxine (SYNTHROID) 25 mcg tablet Take 25 mcg by mouth once daily. - Cholecalciferol, Vitamin D3, 125 mcg (5,000 unit) cap 5,000 Units once daily. - semaglutide, weight loss, (WEGOVY) 0.25 mg/0.5 mL pen injector Inject 0.25 mg subcutaneously one time a week. - omeprazole (PRILOSEC) 20 mg capsule Take 1 capsule by mouth once daily. - acetaminophen (TYLENOL) 500 mg tablet Take by mouth. - VENTOLIN HFA 90 mcg/actuation inhaler Problem List As Of Date 12/23/2024 Noted Resolved with care elsewhere, antepar*03/25/2023 Dysuria during , antepartum [O26.899, *03/25/2023 Short interval between pregnancies affecting pr*03/25/2023 History of depression [Z87.59, Z86.5*03/25/2023 History of depression [Z86.59] 03/25/2023 History of fatty infil (more content not included)... Normal [facility] Urinalysis, Routine (Dipstic k)on 12-23-2024 BILIRUBIN URINE Negative Normal Negative [facility] Comment on above: Order Comment: Urine , Random Performed By: #### L 500.4050, L700.6800, L100.0100 #### [facility] [address] [place], [address] Clarity (U) Cloudy Normal Clear [facility] Comment on above: Order Comment: Urine , Random Performed By: #### L 500.4050, L700.6800, L100.0100 #### [facility] [address] [place], [address] Color (U) Yellow Normal Yellow [facility] Comment on above: Order Comment: Urine , Random Performed By: #### L 500.4050, L700.6800, L100.0100 #### [facility] [address] [place], [address] GLUCOSE, UR Normal Normal Normal [facility] Comment on above: Order Comment: Urine , Random Performed By: #### L 500.4050, L700.6800, L100.0100 #### [facility] [address] [place], [address] KETONE UR Negative Normal Negative [facility] Comment on above: Order Comment: Urine , Random Performed By: #### L 500.4050, L700.6800, L100.0100 #### [facility] [address] [place], [address] LEUK ESTERASE 500 /ul Abnormal Negative [facility] Comment on above: Order Comment: Urine , Random Performed By: #### L 500.4050, L700.6800, L100.0100 #### [facility] [address] [place], [address] Nitrite Ql (U) Positive Abnormal Negative [facility] Comment on above: Order Comment: Urine , Random Performed By: #### L 500.4050, L700.6800, L100.0100 #### [facility] [address] [place], [address] OCCULT BLOOD-UR 25 /ul Abnormal Negative [facility] Comment on above: Order Comment: Urine , Random Performed By: #### L 500.4050, L700.6800, L100.0100 #### [facility] [address] [place], [address] pH UR 6.5 Normal 5.0 - 8.0 [facility] Comment on above: Order Comment: Urine , Random Performed By: #### L 500.4050, L700.6800, L100.0100 #### [facility] [address] [place], [address] PROT DIPSTX 30 mg/dl Abnormal Negative [facility] Comment on above: Order Comment: Urine , Random Performed By: #### L 500.4050, L700.6800, L100.0100 #### [facility] [address] [place], [address] SP.GR. DIPSTX 1.015 Normal 1.002-1.030 [facility] Comment on above: Order Comment: Urine , Random Performed By: #### L 500.4050, L700.6800, L100.0100 #### [facility] [address] [place], [address] UROBILI Normal Normal Normal [facility] Comment on above: Order Comment: Urine , Random Performed By: #### L 500.4050, L700.6800, L100.0100 #### [facility] [address] [place], [address] T4 Free Directon 12-17-2024 T4 FREE DIRECT 0.92 ng/dL Normal 0.76-1.46 [facility] Comment on above: Order Comment: T4F A DDED BY ROBB 12/17/2024STORAGE: WG4 4 MN Performed By: #### L 500.4050, L700.6800, L100.0100 #### [facility] [address] [place], [address] CBC W/Diff, Automatedon 12-02 Absolute Lymph 1.37 X10 3/uL Normal 0.83-4.51 [facility] Comment on above: Performed By: #### L 501.9520, L500.4100, L506.0400, L3100.5055, L3100.5310, L500.4050, L506.1000, L100.0100, L501.9985 #### [facility] [address] [place], [address] Absolute Neut 6.5 X10 3/uL Normal 2.0-7.7 [facility] Comment on above: Performed By: #### L 501.9520, L500.4100, L506.0400, L3100.5055, L3100.5310, L500.4050, L506.1000, L100.0100, L501.9985 #### [facility] [address] [place], [address] Basophils/100 WBC (Bld) 0.7 % Normal 0-1 [facility] Comment on above: Performed By: #### L 501.9520, L500.4100, L506.0400, L3100.5055, L3100.5310, L500.4050, L506.1000, L100.0100, L501.9985 #### [facility] [address] [place], [address] Eosinophils/100 WBC (Bld) 1.1 % Normal 0-5 [facility] Comment on above: Performed By: #### L 501.9520, L500.4100, L506.0400, L3100.5055, L3100.5310, L500.4050, L506.1000, L100.0100, L501.9985 #### [facility] [address] [place], [address] (542) Erythrocyte distribution width (RBC) [Ratio] 15.6 % High 11.6-14.6 [facility] Comment on above: Performed By: #### L 501.9520, L500.4100, L506.0400, L3100.5055, L3100.5310, L500.4050, L506.1000, L100.0100, L501.9985 #### [facility] [address] [place], [address] (619) Hematocrit (Bld) [Volume fraction] 38.5 % Normal 37-47 [facility] Comment on above: Performed By: #### L 501.9520, L500.4100, L506.0400, L3100.5055, L3100.5310, L500.4050, L506.1000, L100.0100, L501.9985 #### [facility] [address] [place], [place], [id number] ([phone] Hemoglobin (Bld) [Mass/Vol] 12.2 g/dL Normal 12.0-15.0 [facility] Comment on above: Performed By: #### L 501.9520, L500.4100, L506.0400, L3100.5055, L3100.5310, L500.4050, L506.1000, L100.0100, L501.9985 #### [facility] [address] [place], [address] IG% 0.200 Normal 0.0-0.9 [facility] Comment on above: Result Comment: IG% - Immature Granulocytes (promyelocytes, myelocytes and metamyelocytes) > 1% indicates that a LEFT SHIFT is Present. Performed By: #### L 501.9520, L500.4100, L506.0400, L3100.5055, L3100.5310, L500.4050, L506.1000, L100.0100, L501.9985 #### [facility] [address] [place], [address] Lymphocytes/100 WBC (Bld) 16.1 % Low 19-41 [facility] Comment on above: Performed By: #### L 501.9520, L500.4100, L506.0400, L3100.5055, L3100.5310, L500.4050, L506.1000, L100.0100, L501.9985 #### [facility] [address] [place], [address] MCH (RBC) [Entitic mass] 25.6 pg Low 27.0-32.0 [facility] Comment on above: Performed By: #### L 501.9520, L500.4100, L506.0400, L3100.5055, L3100.5310, L500.4050, L506.1000, L100.0100, L501.9985 #### [facility] [address] [place], [address] MCHC (RBC) [Mass/Vol] 31.7 g/dL Low 32-36 [facility] Comment on above: Performed By: #### L 501.9520, L500.4100, L506.0400, L3100.5055, L3100.5310, L500.4050, L506.1000, L100.0100, L501.9985 #### [facility] [address] [place], [address] MCV (RBC) [Entitic vol] 80.7 fL Low 81-99 [facility] Comment on above: Performed By: #### L 501.9520, L500.4100, L506.0400, L3100.5055, L3100.5310, L500.4050, L506.1000, L100.0100, L501.9985 #### [facility] [address] [place], [address] Monocytes/100 WBC (Bld) 5.9 % Normal 0-10 [facility] Comment on above: Performed By: #### L 501.9520, L500.4100, L506.0400, L3100.5055, L3100.5310, L500.4050, L506.1000, L100.0100, L501.9985 #### [facility] [address] [place], [address] Neutrophils/100 WBC (Bld) 76.0 % High 47-70 [facility] Comment on above: Performed By: #### L 501.9520, L500.4100, L506.0400, L3100.5055, L3100.5310, L500.4050, L506.1000, L100.0100, L501.9985 #### [facility] [address] [place], [address] Nucleated RBC (Bld) [#/Vol] 0 10*3/uL Normal 0-5 [facility] Comment on above: Performed By: #### L 501.9520, L500.4100, L506.0400, L3100.5055, L3100.5310, L500.4050, L506.1000, L100.0100, L501.9985 #### [facility] [address] [place], [address] Platelet mean volume (Bld) [Entitic vol] 10.0 fL Normal 6.2-12.0 [facility] Comment on above: Performed By: #### L 501.9520, L500.4100, L506.0400, L3100.5055, L3100.5310, L500.4050, L506.1000, L100.0100, L501.9985 #### [facility] [address] [place], [address] Platelets (Bld) [#/Vol] 484 10*3/uL High 150-450 [facility] Comment on above: Performed By: #### L 501.9520, L500.4100, L506.0400, L3100.5055, L3100.5310, L500.4050, L506.1000, L100.0100, L501.9985 #### [facility] [address] [place], [address] RBC (Bld) [#/Vol] 4.77 10*6/uL Normal 4.2-5.4 [facility] Comment on above: Performed By: #### L 501.9520, L500.4100, L506.0400, L3100.5055, L3100.5310, L500.4050, L506.1000, L100.0100, L501.9985 #### [facility] [address] [place], [address] RDW SD 45.4 fl High 35.1-43.9 [facility] Comment on above: Performed By: #### L 501.9520, L500.4100, L506.0400, L3100.5055, L3100.5310, L500.4050, L506.1000, L100.0100, L501.9985 #### [facility] [address] [place], [address] WBC (Bld) [#/Vol] 8.5 10*3/uL Normal 4.4-11.0 [facility] Comment on above: Performed By: #### L 501.9520, L500.4100, L506.0400, L3100.5055, L3100.5310, L500.4050, L506.1000, L100.0100, L501.9985 #### [facility] [address] [place], [address] Comprehensive Metabolic Prof ilon 12-16-2024 Albumin [Mass/Vol] 3.8 g/dL Normal 3.2-5.0 [facility] Comment on above: Performed By: #### L 500.4050, L700.6800, L100.0100 #### [facility] [address] [place], [address] Albumin/Globulin [Mass ratio] 0.9 {ratio} Normal 0.9-2.4 [facility] Comment on above: Performed By: #### L 500.4050, L700.6800, L100.0100 #### [facility] [address] [place], [address] ALK P 89 U/L Normal 45-117 [facility] Comment on above: Performed By: #### L 500.4050, L700.6800, L100.0100 #### [facility] [address] [place], [address] ALT [Catalytic activity/Vol] 74 U/L High 13-56 [facility] Comment on above: Performed By: #### L 500.4050, L700.6800, L100.0100 #### [facility] [address] [place], [address] AST [Catalytic activity/Vol] 35 U/L Normal 15-37 [facility] Comment on above: Performed By: #### L 500.4050, L700.6800, L100.0100 #### [facility] [address] [place], [address] Bilirubin [Mass/Vol] 0.70 mg/dL Normal 0.20-1.00 [facility] Comment on above: Result Comment: For patients on eltrombopag therapy, use of Dimension [place] TBIL is not recommended. Performed By: #### L 500.4050, L700.6800, L100.0100 #### [facility] [address] [place], [address] BUN/CRE 7.7 RATIO Low 10-20 [facility] Comment on above: Performed By: #### L 500.4050, L700.6800, L100.0100 #### [facility] [address] [place], [address] CA,Total 9.0 mg/dL Normal 8.5-10.1 [facility] Comment on above: Performed By: #### L 500.4050, L700.6800, L100.0100 #### [facility] [address] [place], [address] Chloride [Moles/Vol] 107 mmol/L Normal 98-107 [facility] Comment on above: Performed By: #### L 500.4050, L700.6800, L100.0100 #### [facility] [address] [place], [address] CO2 [Moles/Vol] 25.0 mmol/L Normal 21.0-32.0 [facility] Comment on above: Performed By: #### L 500.4050, L700.6800, L100.0100 #### [facility] [address] [place], [address] Creatinine [Mass/Vol] 0.92 mg/dL Normal 0.55-1.02 [facility] Comment on above: Result Comment: The validity of the calculated GFR GFRAA in patients over 70 years has not been determined. Clinical correlation is essential. Performed By: #### L 500.4050, L700.6800, L100.0100 #### [facility] [address] [place], [address] EST GFR - AA 95 mL/min Normal >60 [facility] Comment on above: Result Comment: Afri can Nepalese GFR Calc Performed By: #### L 500.4050, L700.6800, L100.0100 #### [facility] [address] [place], [address] GAP 7 Normal 5-15 [facility] Comment on above: Performed By: #### L 500.4050, L700.6800, L100.0100 #### [facility] [address] [place], [address] GFR/1.73 sq M.predicted among non-blacks MDRD (S/P/Bld) [Vol rate/Area] 78 mL/min/{1.73_m2} Normal >60 [facility] Comment on above: Result Comment: Non- GFR Calc Performed By: #### L 500.4050, L700.6800, L100.0100 #### [facility] [address] [place], [address] Globulin (S) [Mass/Vol] 4.1 g/dL Normal 2.2-4.2 [facility] Comment on above: Performed By: #### L 500.4050, L700.6800, L100.0100 #### [facility] [address] [place], [address] Glucose [Mass/Vol] 101 mg/dL Normal 74-106 [facility] Comment on above: Result Comment: Fast ing Glucose result from 100 to 125 mg/dL suggests IMPAIRED HOMEOSTASIS per A.D.A. criteria. Performed By: #### L 500.4050, L700.6800, L100.0100 #### [facility] [address] [place], [address] Potassium [Moles/Vol] 3.8 mmol/L Normal 3.5-5.1 [facility] Comment on above: Performed By: #### L 500.4050, L700.6800, L100.0100 #### [facility] [address] [place], [address] Sodium [Moles/Vol] 138 mmol/L Normal 136-145 [facility] Comment on above: Performed By: #### L 500.4050, L700.6800, L100.0100 #### [facility] [address] [place], [address] T PROT 7.9 g/dL Normal 6.4-8.2 [facility] Comment on above: Performed By: #### L 500.4050, L700.6800, L100.0100 #### [facility] [address] [place], [address] Urea nitrogen [Mass/Vol] 7 mg/dL Normal 7-18 [facility] Comment on above: Performed By: #### L 500.4050, L700.6800, L100.0100 #### [facility] [address] [place], [address] FSH and LHon 12-16-2024 FSH 1.2 mIU/mL Normal [facility] Comment on above: Result Comment: NORMAL REFERENCE RANGES FEMALE FOLLICULAR 2.3 - 12.6 mIU/mL MID-CYCLE PEAK 5.2 - 17.5 mIU/mL LUTEAL 1.7 - 12.9 mIU/mL POST-MENOPAUSAL ON MHT 5.9 - 72.8 mIU/mL NOT ON MHT 12.7 - 132.2 mlU/mL MALE 0.7 - 10.8 mIU/mL Performed By: #### L 500.4050, L700.6800, L100.0100 #### [facility] [address] [place], [place], [address] LH 1.0 mIU/mL Normal [facility] Comment on above: Result Comment: NORMAL REFERENCE RANGES FEMALE FOLLICULAR 1.9 - 26.2 mIU/mL MID-CYCLE PEAK 22.8 - 76.1 mIU/mL LUTEAL 0.6 - 16.6 mIU/mL POST-MENOPAUSAL ON MHT 1.1 - 52.4 mIU/mL NOT ON MHT 8.6 - 61.8 mIU/mL MALE 1.2 - 10.6 mIU/mL Performed By: #### L 500.4050, L700.6800, L100.0100 #### [facility] [address] [place], [place], [id number] Hemoglobin A1con 12-16-2024 HbA1c (Bld) [Mass fraction] 5.3 % Normal 3.8-5.6 [facility] Comment on above: Result Comment: Norm al < 5.7 % Prediabetic 5.7 - 6.4 % Diabetic >or= 6.5 % Please note range changes. Performed By: #### L 501.9520, L500.4100, L506.0400, L3100.5055, L3100.5310, L500.4050, L506.1000, L100.0100, L501.9985 #### [facility] [address] [place], [place], [id number] Lipid Profileon 12-16-2024 Cholesterol [Mass/Vol] 175 mg/dL Normal 200 [facility] Comment on above: Result Comment: <200 mg/dL Desirable 200-240 mg/dL Borderline >240 mg/dL High Risk Performed By: #### L 500.4050, L700.6800, L100.0100 #### [facility] [address] [place], [place], [id number] Cholesterol in HDL [Mass/Vol] 38 mg/dL Low [facility] Comment on above: Result Comment: The drugs N-Acetylcysteine and Metamizole may falsely depress this assay. Reference Range HDL <40 mg/dL Low HDL Cholesterol HDL >or= 60 mg/dL High HDL Cholesterol Performed By: #### L 500.4050, L700.6800, L100.0100 #### [facility] [address] [place], [address] Cholesterol in LDL [Mass/Vol] 118 mg/dL Normal 0-130 [facility] Comment on above: Performed By: #### L 500.4050, L700.6800, L100.0100 #### [facility] [address] [place], [address] Cholesterol in VLDL [Mass/Vol] 19 mg/dL Normal 5-40 [facility] Comment on above: Performed By: #### L 500.4050, L700.6800, L100.0100 #### [facility] [address] [place], [address] Triglyceride [Mass/Vol] 96 mg/dL Normal [facility] Comment on above: Result Comment: The drugs N-Acetylcysteine and Metamizole may falsely depress this assay. Serum Triglycerides Reference Interval Normal <150 mg/dL Borderline high 150 - 199 mg/dL High 200 - 499 mg/dL Very High > or = 500 mg/dL Performed By: #### L 500.4050, L700.6800, L100.0100 #### [facility] [address] [place], [address] Thyroid Stim Hormone (TSH)on 12-16-2024 TSH 6.410 uIU/mL High 0.358-3.740 [facility] Comment on above: Performed By: #### L 500.4050, L700.6800, L100.0100 #### [facility] [address] [place], [address] Vitamin D,25 Hydroxyon 12-16 Vitamin D 25-OH 10.5 ng/mL Normal [facility] Comment on above: Result Comment: Mayela min D 25(OH) Status Range Deficiency <20 ng/mL (50nmol/L) Insufficiency 20 - 30 ng/mL (50 - 75 nmol/L) Sufficiency 30 - 100 ng/mL (75 - 250 nmol/L) Toxicity >100 ng/mL (>250 nmol/L) Performed By: #### L 501.9520, L500.4100, L506.0400, L3100.5055, L3100.5310, L500.4050, L506.1000, L100.0100, L501.9985 #### [facility] [address] [place], [address] Urine Cultureon 12-02-2024 [facility] Staphylococcus aureu s [place] Count 50,000-80,000 Staphylococcus aureus: REACTION cefOXitin Susc Islt Doxycycline Islt SHIVANI <=0.5 S Clindamycin.induced Susc Islt NEG Gentamicin Islt SHIVANI <=0.5 S Linezolid Islt SHIVANI 2 S Moxifloxacin Islt SHIVANI <=0.25 S Nitrofurantoin Islt SHIVANI <=16 S Oxacillin Susc Islt 0.5 S Tetracycline Islt SHIVANI <=1 S TMP SMX Islt SHIVANI <=10 S Vancomycin Islt SHIVANI <=0.[address] [facility] Comment on above: Performed By: #### M 100.2200 #### [facility] [address] [place], [place], [id number] Abdomen/Pelvis without Conto n 11-30-2024 Abdomen/Pelvis without Cont [facility] Imaging Services [address] [place], [place] [address] Abdomen/Pelvis without Cont MR#: [id number] Acct: [id number] Name: YOKASTA PRETTY Rep #: [id number] : 1995 F 29 From: Kalani Henriquez MD PCP: Dr. Magnolia Chen MD Status: REG ER Study: Abdomen/Pelvis without Cont Date of Exam: 11/03 Exam# [id number] Ordering Dr: Darion Vega [place] [id number] EXAM: CT ABDOMEN AND PELVIS WITHOUT INTRAVENOUS CONTRAST CLINICAL INDICATION: Kidney Stone -- Right flank pain radiating to groin TECHNIQUE: Helically acquired images were obtained of the abdomen and pelvis without intravenous contrast. This CT exam was performed using one or more of the following dose reduction techniques: automated exposure control, adjustment of the mA and/or kV according to patient size, and/or use of iterative reconstruction technique. RADIATION DOSE: CTDIvol = 23.11 mGy, DLP = 1293.15 mGy-cmContrast: COMPARISON: May 04, 2023. FINDINGS: LOWER THORAX: Unremarkable. Lung bases are clear. No cardiomegaly. No significant pericardial effusion. ABDOMEN: LIVER: Low-attenuation fatty liver, the right lobe is 20.7 cm craniocaudal, it was 22 cm. GALLBLADDER AND BILE DUCTS: Cholecystectomy clips. No intra- or extrahepatic biliary ductal dilation. PANCREAS: Unremarkable. No focal cystic mass. SPLEEN: Spleen 13.3 cm craniocaudal, similar. ADRENALS: Unremarkable. No nodules. KIDNEYS AND URETERS: Nonobstructing 3.7 mm stone at the lower pole of the right kidney. No hydronephrosis or ureter stone. STOMACH AND BOWEL: Moderate fluid and mild gas in the stomach. Mild fluid and gas in the small bowel. Mild stool in the right colon and in the sigmoid. No stomach or bowel distention. No focal inflammatory change. PELVIS: APPENDIX: Small appendix is best seen on sagittal images, it contains slight gas. BLADDER: Unremarkable. REPRODUCTIVE: The uterus is significantly smaller, there was previously a gravid uterus. ABDOMEN and PELVIS: INTRAPERITONEAL SPACE: Trace intrapelvic fluid, nonspecific. No free air. BONES/JOINTS: Mild Schmorl''s nodes at multiple lumbar levels. Minimal straightening of the usual lordotic curvature. No suspicious lytic or blastic abnormality. SOFT TISSUES: Trace fat in the umbilicus. No discrete abdominal or pelvic wall hernia. VASCULATURE: Unremarkable. Abdominal aorta is non-dilated. LYMPH NODES: Unremarkable. No enlarged lymph nodes. CT/Abdomen/Pelvis without Cont IMPRESSION: 1. Right nephrolithiasis. No hydronephrosis or ureter stone. No specific acute abnormality. 2. Hepatosplenomegaly and fatty liver. Electronically Signed: Kalani Henriquez MD at 21:05 EST , CC: Dr. Magnolia Chen MD; Dr. Darion Vega MD Engine Dynamometer Tester: Signed Normal [facility] CBC W/Diff, Automatedon 12-3 0-202 Absolute Lymph 2.51 X10 3/uL Normal 0.83-4.51 [facility] Comment on above: Performed By: #### L 500.4050, L700.6800, L100.0100 #### [facility] [address] [place], [address] Absolute Neut 6.9 X10 3/uL Normal 2.0-7.7 [facility] Comment on above: Performed By: #### L 500.4050, L700.6800, L100.0100 #### [facility] [address] [place], [address] Basophils/100 WBC (Bld) 0.6 % Normal 0-1 [facility] Comment on above: Performed By: #### L 500.4050, L700.6800, L100.0100 #### [facility] [address] [place], [address] Eosinophils/100 WBC (Bld) 1.7 % Normal 0-5 [facility] Comment on above: Performed By: #### L 500.4050, L700.6800, L100.0100 #### [facility] [address] [place], [address] Erythrocyte distribution width (RBC) [Ratio] 15.3 % High 11.6-14.6 [facility] Comment on above: Performed By: #### L 500.4050, L700.6800, L100.0100 #### [facility] [address] [place], [address] Hematocrit (Bld) [Volume fraction] 40.5 % Normal 37-47 [facility] Comment on above: Performed By: #### L 500.4050, L700.6800, L100.0100 #### [facility] [address] [place], [address] Hemoglobin (Bld) [Mass/Vol] 12.7 g/dL Normal 12.0-15.0 [facility] Comment on above: Performed By: #### L 500.4050, L700.6800, L100.0100 #### [facility] [address] [place], [address] IG% 0.400 Normal 0.0-0.9 [facility] Comment on above: Result Comment: IG% - Immature Granulocytes (promyelocytes, myelocytes and metamyelocytes) > 1% indicates that a LEFT SHIFT is Present. Performed By: #### L 500.4050, L700.6800, L100.0100 #### [facility] [address] [place], [address] Lymphocytes/100 WBC (Bld) 23.9 % Normal 19-41 [facility] Comment on above: Performed By: #### L 500.4050, L700.6800, L100.0100 #### [facility] [address] [place], [address] MCH (RBC) [Entitic mass] 25.2 pg Low 27.0-32.0 [facility] Comment on above: Performed By: #### L 500.4050, L700.6800, L100.0100 #### [facility] [address] [place], [address] MCHC (RBC) [Mass/Vol] 31.4 g/dL Low 32-36 [facility] Comment on above: Performed By: #### L 500.4050, L700.6800, L100.0100 #### [facility] [address] [place], [address] MCV (RBC) [Entitic vol] 80.4 fL Low 81-99 [facility] Comment on above: Performed By: #### L 500.4050, L700.6800, L100.0100 #### [facility] [address] [place], [address] Monocytes/100 WBC (Bld) 7.7 % Normal 0-10 [facility] Comment on above: Performed By: #### L 500.4050, L700.6800, L100.0100 #### [facility] [address] [place], [address] Neutrophils/100 WBC (Bld) 65.7 % Normal 47-70 [facility] Comment on above: Performed By: #### L 500.4050, L700.6800, L100.0100 #### [facility] [address] [place], [address] Nucleated RBC (Bld) [#/Vol] 0 10*3/uL Normal 0-5 [facility] Comment on above: Performed By: #### L 500.4050, L700.6800, L100.0100 #### [facility] [address] [place], [address] Platelet mean volume (Bld) [Entitic vol] 9.7 fL Normal 6.2-12.0 [facility] Comment on above: Performed By: #### L 500.4050, L700.6800, L100.0100 #### [facility] [address] [place], [address] Platelets (Bld) [#/Vol] 516 10*3/uL High 150-450 [facility] Comment on above: Performed By: #### L 500.4050, L700.6800, L100.0100 #### [facility] [address] [place], [address] RBC (Bld) [#/Vol] 5.04 10*6/uL Normal 4.2-5.4 [facility] Comment on above: Performed By: #### L 500.4050, L700.6800, L100.0100 #### [facility] [address] [place], [address] RDW SD 44.3 fl High 35.1-43.9 [facility] Comment on above: Performed By: #### L 500.4050, L700.6800, L100.0100 #### [facility] [address] [place], [address] WBC (Bld) [#/Vol] 10.5 10*3/uL Normal 4.4-11.0 [facility] Comment on above: Performed By: #### L 500.4050, L700.6800, L100.0100 #### [facility] [address] [place], [address] MOLINAOVbrad 11-30-2024 [facility] YOKASTA PRETTY ([id number]) 1995 F Date Time Provider Department 11/30/24 4:15 PM MEG BETTENCOURT [facility] During your visit today, we recorded the following information about you: Temperature Pulse Respiration Blood pressure 99.3 degrees 103/minute 22/minute 132/68 Weight 124.1 kg Meg Bettencourt MD 11/30/2024 4:07 PM Addendum Patient presents with: Urinary Problem: Nausea, burning, frequency, lower back pain x 2 weeks HPI: Symptoms for 2 weeks; worsened the last 3 days. Dysuria: Yes Frequency: Yes Hematuria: No Nausea: Yes. Has diarrhea, no vomiting. Fever or chills: no fever; feeling dizzy and confused Back pain: right flank Abdominal pain: Yes Prior UTI: Yes Personal history of kidney stones: Yes PAST MEDICAL HISTORY Diagnosis Date Anxiety Asthma Bipolar depression (HCC) Depression Fatty liver depression PAST SURGICAL HISTORY Procedure Laterality Date LAPAROSCOPIC CHOLECYSTECTOMY PAST SURGICAL HISTORY OF wisdom teeth TONSILLECTOMY AND ADENOIDECTOMY MEDICATIONS: Current Outpatient Medications Medication Sig omeprazole (PRILOSEC) 20 mg capsule Take 1 capsule by mouth once daily. acetaminophen (TYLENOL) 500 mg tablet Take by mouth. VENTOLIN HFA 90 mcg/actuation inhaler No current facility-administered medications for this visit. ALLERGIES: ALLERGIES Allergen Reactions Abilify [Aripiprazo* Hives VITALS: BP 132/68 Pulse 103 Temp 37.4 ?C (99.3 ?F) Resp 22 Wt 124.1 kg (273 lb 9.5 oz) LMP 01/23/2023 (Exact Date) SpO2 100% BMI 41.60 kg/m? PHYSICAL EXAM: GEN: NAD; accompanied by her HEENT: EOMI, conjunctiva clear, HEART: borderline fast rate, regular rhythm, no murmurs LUNGS: clear to auscultation, no wheezes or crackles, no increased WOB ABDOMEN: Soft, nondistended, no masses, suprapubic and right lateral tenderness BACK: right CVA and lumbar tenderness ASSESSMENT/PLAN: 1. Urinary frequency - ICD9: 788.41, ICD10: R35.0 (primary diagnosis) 2. Acute right flank pain - ICD9: 789.09, 338.19, ICD10: R10.9 3. Dizziness - ICD9: 780.4, ICD10: R42 - UA DIP, URINE (POC) -positive for blood, leukocyte esterase, protein, nitrite. Flank pain, borderline fever, tachycardia, nausea and confusion. Advised further evaluation in the emergency room where imaging and lab can delineate UTI from pyelonephritis, renal calculus, and appendicitis. Her will take her to [facility] ED. Meg Bettencourt MD Allergies As of Date: 11/30/2024 Noted Allergy Reaction ABILIFY (ARIPIPRAZOLE) 03/05/2016 4 - Hives Date Reviewed: 11/30/2024 Reviewed by: Jossy Sanders MA - Fully Assessed Reason for Visit: Urinary Problem [252] Cmt: Nausea, burning, frequency, lower back pain x 2 weeks Primary Visit Diagnosis:Urinary frequency [R35.0] Other Visit Diagnoses:Acute right flank pain [R10.9] Dizziness [R42] Order(s):UA DIP, URINE (POC) [5135327] Order #: [id number]. #:[id number] Prescriptions as of 11/30/2024 - omeprazole (PRILOSEC) 20 mg capsule Take 1 capsule by mouth once daily. - acetaminophen (TYLENOL) 500 mg tablet Take by mouth. - VENTOLIN HFA 90 mcg/actuation inhaler Problem List As Of Date 11/30/2024 Noted Resolved with care elsewhere, antepar*03/25/2023 Dysuria during , antepartum [O26.899, *03/25/2023 Short interval between pregnancies affecting pr*03/25/2023 History of depression [Z87.59, Z86.5*03/25/2023 History of depression [Z86.59] 03/25/2023 History of fatty infiltration of liver [Z87.19] 03/25/2023 Obesity affecting , antepartum [O99.21*03/25/2023 Patient request for diagnostic testing [Z01.89] 03/25/2023 Family history of defect [Z82.79] 03/25/2023 GBS (group B Streptococcus carrier), +RV cultur*10/03/2023 Medications Discontinued During This Encounter Prescriptions - hydrOXYzine pamoate (VISTARIL) 25 mg capsule (Discontinued) Reported on 11/30/2024 - PNV Comb No.53-Qvog-Sjytv Acid (PRENATABS FA) 29-1 mg tab (Discontinued) Reported on 03/25/2024 LOS History for Encounter --- Level of Service: OFFICE/OUTPATIENT ESTABLISHED LOW MDM 20 MIN[37639] Date AND Time: 11-30-2024 4:02 PM Recorded by User: MEG BETTENCOURT Encounter Status:Closed by MEG BETTENCOURT on 11/30/24 Normal [facility] ilon 11-30-2024 Albumin [Mass/Vol] 4.1 g/dL Normal 3.2-5.0 [facility] Comment on above: Performed By: #### L 500.4050, L700.6800, L100.0100 #### [facility] [address] [place], [address] Albumin/Globulin [Mass ratio] 1.0 {ratio} Normal 0.9-2.4 [facility] Comment on above: Performed By: #### L 500.4050, L700.6800, L100.0100 #### [facility] [address] [place], [address] ALK P 98 U/L Normal 45-117 [facility] Comment on above: Performed By: #### L 500.4050, L700.6800, L100.0100 #### [facility] [address] [place], [address] ALT [Catalytic activity/Vol] 78 U/L High 13-56 [facility] Comment on above: Performed By: #### L 500.4050, L700.6800, L100.0100 #### [facility] [address] [place], [address] AST [Catalytic activity/Vol] 25 U/L Normal 15-37 [facility] Comment on above: Performed By: #### L 500.4050, L700.6800, L100.0100 #### [facility] [address] [place], [address] Bilirubin [Mass/Vol] 0.70 mg/dL Normal 0.20-1.00 [facility] Comment on above: Result Comment: For patients on eltrombopag therapy, use of Dimension [place] TBIL is not recommended. Performed By: #### L 500.4050, L700.6800, L100.0100 #### [facility] [address] [place], [address] BUN/CRE 11.4 RATIO Normal 10-20 [facility] Comment on above: Performed By: #### L 500.4050, L700.6800, L100.0100 #### [facility] [address] [place], [address] CA,Total 9.6 mg/dL Normal 8.5-10.1 [facility] Comment on above: Performed By: #### L 500.4050, L700.6800, L100.0100 #### [facility] [address] [place], [address] Chloride [Moles/Vol] 106 mmol/L Normal 98-107 [facility] Comment on above: Performed By: #### L 500.4050, L700.6800, L100.0100 #### [facility] [address] [place], [address] CO2 [Moles/Vol] 29.0 mmol/L Normal 21.0-32.0 [facility] Comment on above: Performed By: #### L 500.4050, L700.6800, L100.0100 #### [facility] [address] [place], [address] Creatinine [Mass/Vol] 0.88 mg/dL Normal 0.55-1.02 [facility] Comment on above: Result Comment: The validity of the calculated GFR GFRAA in patients over 70 years has not been determined. Clinical correlation is essential. Performed By: #### L 500.4050, L700.6800, L100.0100 #### [facility] [address] [place], [address] ECRCL 133.54 ml/min Normal [facility] Comment on above: Performed By: #### L 500.4050, L700.6800, L100.0100 #### [facility] [address] [place], [address] EST GFR - AA 99 mL/min Normal >60 [facility] Comment on above: Result Comment: Afri can Nepalese GFR Calc Performed By: #### L 500.4050, L700.6800, L100.0100 #### [facility] [address] [place], [address] GAP 4 Low 5-15 [facility] Comment on above: Performed By: #### L 500.4050, L700.6800, L100.0100 #### [facility] [address] [place], [address] GFR/1.73 sq M.predicted among non-blacks MDRD (S/P/Bld) [Vol rate/Area] 82 mL/min/{1.73_m2} Normal >60 [facility] Comment on above: Result Comment: Non- GFR Calc Performed By: #### L 500.4050, L700.6800, L100.0100 #### [facility] [address] [place], [address] Globulin (S) [Mass/Vol] 4.0 g/dL Normal 2.2-4.2 [facility] Comment on above: Performed By: #### L 500.4050, L700.6800, L100.0100 #### [facility] [address] [place], [address] Glucose [Mass/Vol] 75 mg/dL Normal 74-106 [facility] Comment on above: Performed By: #### L 500.4050, L700.6800, L100.0100 #### [facility] [address] [place], [address] Potassium [Moles/Vol] 3.8 mmol/L Normal 3.5-5.1 [facility] Comment on above: Performed By: #### L 500.4050, L700.6800, L100.0100 #### [facility] [address] [place], [address] Sodium [Moles/Vol] 139 mmol/L Normal 136-145 [facility] Comment on above: Performed By: #### L 500.4050, L700.6800, L100.0100 #### [facility] [address] [place], [address] T PROT 8.1 g/dL Normal 6.4-8.2 [facility] Comment on above: Performed By: #### L 500.4050, L700.6800, L100.0100 #### [facility] [address] [place], [address] Urea nitrogen [Mass/Vol] 10 mg/dL Normal 7-18 [facility] Comment on above: Performed By: #### L 500.4050, L700.6800, L100.0100 #### [facility] [address] [place], [address] Emergency Department Summary on 11-30-2024 Emergency Department Summary [facility] Medical Records Department [address] [place] [address] Emergency Department Summary 11/30/24 MR#: [id number] Acct: [id number] Name: YOKASTA PRETTY Rep #: [id number] : 1995 29 From: Darion Vega MD PCP: Dr. Magnolia Chen MD Status:DEP ER Location: ED ADDENDUM by Dr. Tex Estrada DO on 12/02/24 at 0745 Urine culture was reviewed on 12/02/2024. Urine culture grew out 50-80,000 CFU per mL of Staph aureus. This was sensitive to all antibiotics. Patient was given a prescription for Bactrim. This will be sent to her pharmacy. Patient will be contacted and advised to pick this up and take it as directed for 3 days. 12/02/24 1260 Cosigner Signature (if applicable): cc: Dr. Magnolia Chen MD * Signed HPI History of Present Illness Chief Complaint: Flank Pain Detail of Chief Complaint: Initially intermittent right flank pain.'s been constant now for the past 3 Informant: patient and spouse/S.O. Onset/Context/Timing Onset: Days Context: Sudden Onset Timing: Continuous Quality: Pain Location: Right flank radiating to the groin Current Severity: Mild Maximum Severity: Moderate Worsened by: Nothing specific Relieved by: Nothing Associated Symptoms Associated Symptoms: Nausea without vomiting and urinary symptoms Narrative Narrative: Patient is a 29-year-old female who states she has had prior stone. Review of prior records indicates she has been here for numerous symptoms including cystitis, cholecystitis, abdominal contusion and problems related to . She reports constant pain for the past 3 days right flank rating to the right lower quadrant. She does endorse dysuria, frequency and urgency. Denies hematuria. She complains of subjective fever. Tmax 99.6. She also endorses nausea without vomiting or diarrhea. Her last normal menstrual period is unknown. She has polycystic ovarian syndrome. Patient denies headache, visual, ocular auditory symptoms. Patient denies cardiac or respiratory symptoms. Patient denies intolerance to greasy or fried foods. Patient denies history of kidney infection. Patient denies history of trauma. Prior similar symptoms: Yes (With reported kidney stone) Recent Illness/Hospitalizatio n: No PFSH PFSH Medical History Lactating mother Vaginal delivery Positive GBS test History of depression Short interval between pregnancies affecting in third trimester, antepartum Obesity UTI in SROM (spontaneous rupture of membranes) 37 weeks gestation of MRSA infection Trauma Thyroid disorder Liver disease depression Wears glasses Fatty liver Heartburn Gastric reflux Former smoker PCOS (polycystic ovarian syndrome) Injury of head and neck Migraines Cholecystitis with cholelithiasis Chest pain Spontaneous vaginal delivery Elective induction of labor planned Marginal placenta previa Asthma Bipolar disorder Anxiety Depression Home Medications ???Medication ???Instructions ???Recorded ???Last Taken ???Type albuterol 90 mcg/actuation aerosol 90 mcg inhalation Q6H PRN PRN 10/10/23 Unknown History inhaler asthma acetaminophen 500 mg tablet 1,000 mg (2 x 500 mg) PO Q6H PRN 10/17/23 Unknown Rx PRN Pain 1-10 Or Fever #0 tabs phenazopyridine 200 mg tablet 200 mg PO TID 6 doses #6 tabs 11/30/24 Unknown Rx (Pyridium) Allergy/AdvReac Type Severity Reaction Status Date / Time aripiprazole Allergy Hives Verified 11/30/24 16:36 Family History Father Anxiety Depression Mental disorder Suicide attempt Grandfather Cancer lung Grandmother Myocardial infarction CVA (cerebral vascular accident) Surgical History History of cholecystectomy Hx of tonsillectomy History of surgery Social History household members: family housing: house current occupational status: employed current occupation: [employer] sexually active: Yes Smoking Status: Current every day smoker tobacco type: e-cigarettes Electronic Cigarette Use: not used alcohol intake: current alcohol intake frequency: holidays/special occasions only substance use type: does not use what type of physical activity do you participate in: walking frequency: 5-6 times per week seatbelt use: always do you feel safe at home: Yes ROS ROS ED Constitutional Constitutional ED: Reports chills, fever(s) and subjective; Denies sweats or weight loss Eyes Eyes: Denies blurry vision or change in vision ENT ENT ED: Denies ear pain, rhinorrhea or sore throat Cardiovascular Cardiovascular: Denies chest pain or p (more content not included)... Normal [facility] ,Serum,hCG Quali.on 11-30-2024 HCG, SERUM QUAL Negative Normal [facility] Comment on above: Performed By: #### L 500.4050, L700.6800, L100.0100 #### [facility] [place], [address] UA DIP, URINE (POC)on 2023 BILIRUBIN UA (POCT) Negative Negative [facility] CLARITY UA (POCT) Cloudy [facility] COLOR UA (POCT) Dark yellow [facility] GLUCOSE UA (POCT) Negative Negative mg/dL [facility] Hemoglobin Ql (U) Trace-intact Abnormal Negative [facility] Interpretation and review of laboratory results Abnormal [facility] KETONE UA (POCT) Negative Negative mg/dL [facility] LEUKOCYTES UA (POCT) Moderate Abnormal Negative [facility] NITRITE UA (POCT) Positive Abnormal Negative [facility] PH UA (POCT) 6.0 4.5 - 8.0 [facility] Protein Ql (U) 30 mg/dL Abnormal Negative [facility] SPECIFIC GRAVITY UA (POCT) 1.025 1.005 - 1.030 [facility] UROBILINOGEN UA (POCT) 0.2 Normal E.U./d L [facility] Location:[address], [place], [address] [facility] POINT OF CARE [facility] Urinalysis, Completeon 11-30 AMORPHOUS 1+ URATE Normal [facility] Comment on above: Order Comment: YRIS TER SPECIMEN Performed By: #### L 500.4050, L700.6800, L100.0100 #### [facility] [address] [place], [address] EPI,SQUAMOUS 0-5 SEEN Normal 5-10 [facility] Comment on above: Order Comment: YRIS TER SPECIMEN Performed By: #### L 500.4050, L700.6800, L100.0100 #### [facility] [address] [place], [address] RBC 0-5 SEEN Normal 0-5 [facility] Comment on above: Order Comment: YRIS TER SPECIMEN Performed By: #### L 500.4050, L700.6800, L100.0100 #### [facility] [address] [place], [address] WBC 5-10 SEEN Normal 0-5 [facility] Comment on above: Order Comment: YRIS TER SPECIMEN Performed By: #### L 500.4050, L700.6800, L100.0100 #### [facility] [address] [place], [address] BACTERIA 0 SEEN Normal None Seen [facility] Comment on above: Order Comment: YRIS TER SPECIMEN Performed By: #### L 500.4050, L700.6800, L100.0100 #### [facility] [address] [place], [address] Mucus Ql (Urine sed) [address] [facility] Comment on above: Order Comment: YRIS TER SPECIMEN Performed By: #### L 500.4050, L700.6800, L100.0100 #### [facility] [address] [place], [address] AMORPHOUS 2+ Normal [facility] Comment on above: Order Comment: CLEAN CATCH Performed By: #### L 500.4050, L700.6800, L100.0100 #### [facility] [address] [place], [address] BACTERIA 2+ /hpf Normal None Seen [facility] Comment on above: Order Comment: CLEAN CATCH Performed By: #### L 500.4050, L700.6800, L100.0100 #### [facility] [address] [place], [address] EPI,SQUAMOUS > 100 SEEN Normal 5-10 [facility] Comment on above: Order Comment: CLEAN CATCH Performed By: #### L 500.4050, L700.6800, L100.0100 #### [facility] [address] [place], [address] Mucus Ql (Urine sed) 2+ /hpf Normal [facility] Comment on above: Order Comment: CLEAN CATCH Performed By: #### L 500.4050, L700.6800, L100.0100 #### [facility] [address] [place], [address] WBC >100 SEEN Normal 0-5 [facility] Comment on above: Order Comment: CLEAN CATCH Performed By: #### L 500.4050, L700.6800, L100.0100 #### [facility] [address] [place], [address] BACTERIA Normal None Seen [facility] Comment on above: Order Comment: CLEAN CATCH Result Comment: DUPL ICATE Performed By: #### L 500.4050, L700.6800, L100.0100 #### [facility] [address] [place], [address] BILIRUBIN URINE Normal Negative [facility] Comment on above: Order Comment: CLEAN CATCH Result Comment: DUPL ICATE Performed By: #### L 500.4050, L700.6800, L100.0100 #### [facility] [address] [place], [address] Clarity (U) Normal Clear [facility] Comment on above: Order Comment: CLEAN CATCH Result Comment: DUPL ICATE Performed By: #### L 500.4050, L700.6800, L100.0100 #### [facility] [address] [place], [address] Color (U) Normal Yellow [facility] Comment on above: Order Comment: CLEAN CATCH Result Comment: DUPL ICATE Performed By: #### L 500.4050, L700.6800, L100.0100 #### [facility] [address] [place], [address] EPI,SQUAMOUS Normal 5-10 [facility] Comment on above: Order Comment: CLEAN CATCH Result Comment: DUPL ICATE Performed By: #### L 500.4050, L700.6800, L100.0100 #### [facility] [address] [place], [address] GLUCOSE, UR Normal Normal [facility] Comment on above: Order Comment: CLEAN CATCH Result Comment: DUPL ICATE Performed By: #### L 500.4050, L700.6800, L100.0100 #### [facility] [address] [place], [address] KETONE UR Normal Negative [facility] Comment on above: Order Comment: CLEAN CATCH Result Comment: DUPL ICATE Performed By: #### L 500.4050, L700.6800, L100.0100 #### [facility] [address] [place], [address] LEUK ESTERASE Normal Negative [facility] Comment on above: Order Comment: CLEAN CATCH Result Comment: DUPL ICATE Performed By: #### L 500.4050, L700.6800, L100.0100 #### [facility] [address] [place], [address] Mucus Ql (Urine sed) Normal [facility] Comment on above: Order Comment: CLEAN CATCH Result Comment: DUPL ICATE Performed By: #### L 500.4050, L700.6800, L100.0100 #### [facility] [address] [place], [address] Nitrite Ql (U) Normal Negative [facility] Comment on above: Order Comment: CLEAN CATCH Result Comment: DUPL ICATE Performed By: #### L 500.4050, L700.6800, L100.0100 #### [facility] [address] [place], [address] OCCULT BLOOD-UR Normal Negative [facility] Comment on above: Order Comment: CLEAN CATCH Result Comment: DUPL ICATE Performed By: #### L 500.4050, L700.6800, L100.0100 #### [facility] [address] [place], [address] pH UR Normal 5.0 - 8.0 [facility] Comment on above: Order Comment: CLEAN CATCH Result Comment: DUPL ICATE Performed By: #### L 500.4050, L700.6800, L100.0100 #### [facility] [address] [place], [address] PROT DIPSTX Normal Negative [facility] Comment on above: Order Comment: CLEAN CATCH Result Comment: DUPL ICATE Performed By: #### L 500.4050, L700.6800, L100.0100 #### [facility] [address] [place], [address] RBC Normal 0-5 [facility] Comment on above: Order Comment: CLEAN CATCH Result Comment: DUPL ICATE Performed By: #### L 500.4050, L700.6800, L100.0100 #### [facility] [address] [place], [address] SP.GR. DIPSTX Normal 1.002-1.030 [facility] Comment on above: Order Comment: CLEAN CATCH Result Comment: DUPL ICATE Performed By: #### L 500.4050, L700.6800, L100.0100 #### [facility] [address] [place], [address] [facility] Comment on above: Order Comment: CLEAN CATCH Result Comment: DUPL ICATE Performed By: #### L 500.4050, L700.6800, L100.0100 #### [facility] [address] [place], [address] [facility] Comment on above: Order Comment: CLEAN CATCH Result Comment: DUPL ICATE Performed By: #### L 500.4050, L700.6800, L100.0100 #### [facility] [address] [place], [address] WBC Normal 0-5 [facility] Comment on above: Order Comment: CLEAN CATCH Result Comment: DUPL ICATE Performed By: #### L 500.4050, L700.6800, L100.0100 #### [facility] [address] [place], [address] BILIRUBIN URINE Negative Normal Negative [facility] Comment on above: Order Comment: CLEAN CATCH Performed By: #### L 500.4050, L700.6800, L100.0100 #### [facility] [address] [place], [address] Clarity (U) Sl. Cloudy Normal Clear [facility] Comment on above: Order Comment: CLEAN CATCH Performed By: #### L 500.4050, L700.6800, L100.0100 #### [facility] [address] [place], [address] Color (U) Yellow Normal Yellow [facility] Comment on above: Order Comment: CLEAN CATCH Performed By: #### L 500.4050, L700.6800, L100.0100 #### [facility] [address] [place], [address] GLUCOSE, UR Normal Normal Normal [facility] Comment on above: Order Comment: CLEAN CATCH Performed By: #### L 500.4050, L700.6800, L100.0100 #### [facility] [address] [place], [address] KETONE UR Negative Normal Negative [facility] Comment on above: Order Comment: CLEAN CATCH Performed By: #### L 500.4050, L700.6800, L100.0100 #### [facility] [address] [place], [address] LEUK ESTERASE 500 /ul Abnormal Negative [facility] Comment on above: Order Comment: CLEAN CATCH Performed By: #### L 500.4050, L700.6800, L100.0100 #### [facility] [address] [place], [address] Nitrite Ql (U) Positive Abnormal Negative [facility] Comment on above: Order Comment: CLEAN CATCH Performed By: #### L 500.4050, L700.6800, L100.0100 #### [facility] [address] [place], [address] OCCULT BLOOD-UR 10 /ul Abnormal Negative [facility] Comment on above: Order Comment: CLEAN CATCH Performed By: #### L 500.4050, L700.6800, L100.0100 #### [facility] [address] [place], [address] pH UR 7.0 Normal 5.0 - 8.0 [facility] Comment on above: Order Comment: CLEAN CATCH Performed By: #### L 500.4050, L700.6800, L100.0100 #### [facility] [address] [place], [address] PROT DIPSTX 30 mg/dl Abnormal Negative [facility] Comment on above: Order Comment: CLEAN CATCH Performed By: #### L 500.4050, L700.6800, L100.0100 #### [facility] [address] [place], [address] SP.GR. DIPSTX 1.025 Normal 1.002-1.030 [facility] Comment on above: Order Comment: CLEAN CATCH Performed By: #### L 500.4050, L700.6800, L100.0100 #### [facility] [address] [place], [address] UROBILI 1 mg/dl Abnormal Normal [facility] Comment on above: Order Comment: CLEAN CATCH Performed By: #### L 500.4050, L700.6800, L100.0100 #### [facility] [address] [place], [address] RBC 0 SEEN Normal 0-5 [facility] Comment on above: Order Comment: CLEAN CATCH Performed By: #### L 500.4050, L700.6800, L100.0100 #### [facility] [address] [place], [address] CNOVon 08-18-2024 CNOV Office Visit (UCWSTR ) YOKASTA PRETTY ([id number]) 1995 F Date Time Provider Department 08/18/24 7:30 PM NIGHAT QIU [facility] During your visit today, we recorded the following information about you: Nighat Qiu APRN.DROSSER 08/18/2024 7:30 PM Signed Called to triage patient for allergic reaction Endorses that she developed rash on face at around 0530 this morning Presents stating that she is having sensations that her throat is swelling up Discussed limitations of express care Referred to ED for further monitoring Allergies As of Date: 08/18/2024 Noted Allergy Reaction MAIJOEBon (ARIPIPRAZOLE) 03/05/2016 4 - Hives Date Reviewed: 03/25/2024 Reviewed by: Giuseppe Hnana MA - Fully Assessed Primary Visit Diagnosis:Allergic reaction, initial encounter [T78.40XA] Prescriptions as of 08/18/2024 - hydrOXYzine pamoate (VISTARIL) 25 mg capsule Take 1 capsule by mouth three times daily as needed. - omeprazole (PRILOSEC) 20 mg capsule Take 1 capsule by mouth once daily. - PNV Comb No.87-Jyrf-Fbafd Acid (PRENATABS FA) 29-1 mg tab Take by mouth. - acetaminophen (TYLENOL) 500 mg tablet Take by mouth. - VENTOLIN HFA 90 mcg/actuation inhaler Problem List As Of Date 08/18/2024 Noted Resolved with care elsewhere, antepar*03/25/2023 Dysuria during , antepartum [O26.899, *03/25/2023 Short interval between pregnancies affecting pr*03/25/2023 History of depression [Z87.59, Z86.5*03/25/2023 History of depression [Z86.59] 03/25/2023 History of fatty infiltration of liver [Z87.19] 03/25/2023 Obesity affecting , antepartum [O99.21*03/25/2023 Patient request for diagnostic testing [Z01.89] 03/25/2023 Family history of defect [Z82.79] 03/25/2023 GBS (group B Streptococcus carrier), +RV cultur*10/03/2023 Encounter Status:Closed by NIGHAT QIU on 08/18/24 Normal [facility] STREP A MOLECULAR (POC)on Procedural Control Valid [facility] Strep A (POCT) Negative Negative [facility] XR Chest PA and Lateralon IMPRESSION: No acute radiographic abnormality. Engine Dynamometer Tester: PSCB Transcribe Date/Time: Mar 25 2024 8:32A Dictated by : SHEYLA MEREDITH DO This examination was interpreted and the report reviewed and electronically signed by: SHEYLA MEREDITH DO on Mar 25 2024 8:33AM [facility] DIVISION OF RADIOLOGY * * *Final Report* * * DATE OF EXAM: Mar 25 2024 8:12AM WOX [id number] - XR CHEST 2V FRONTAL/LAT / PROCEDURE REASON: multiple diagnoses * * * * Physician Interpretation * * * * EXAMINATION: CHEST RADIOGRAPH (2 VIEW FRONTAL & LATERAL) PATIENT/TECHNOLOGIST PROVIDED HISTORY: sore throat, headache and low grade fever for 2 days CLINICAL HISTORY: 28 years old Female with URI, acute Acute cough. MQ: XC2_6 EXAM DATE/TIME: 03/25/2024 8:12 AM COMPARISON: No relevant prior studies available. RESULT: Lines, tubes, and devices: None. Lungs and pleura: No consolidation. No pleural effusion. No pneumothorax. Cardiomediastinal silhouette: Normal cardiomediastinal silhouette. Bones and soft tissues: Unremarkable. DIVISION OF RADIOLOGY Provider, Harleen Hennessy - 03/25/2024 * * *Final Report* * * DATE OF EXAM: Mar 25 2024 8:12AM WOX [id number] - XR CHEST 2V FRONTAL/LAT / PROCEDURE REASON: multiple diagnoses * * * * Physician Interpretation * * * * EXAMINATION: CHEST RADIOGRAPH (2 VIEW FRONTAL & LATERAL) PATIENT/TECHNOLOGIST PROVIDED HISTORY: sore throat, headache and low grade fever for 2 days CLINICAL HISTORY: 28 years old Female with URI, acute Acute cough. MQ: XC2_6 EXAM DATE/TIME: 03/25/2024 8:12 AM COMPARISON: No relevant prior studies available. RESULT: Lines, tubes, and devices: None. Lungs and pleura: No consolidation. No pleural effusion. No pneumothorax. Cardiomediastinal silhouette: Normal cardiomediastinal silhouette. Bones and soft tissues: Unremarkable. IMPRESSION IMPRESSION: No acute radiographic abnormality. Engine Dynamometer Tester: PSCB Transcribe Date/Time: Mar 25 2024 8:32A Dictated by : SHEYLA MEREDITH DO This examination was interpreted and the report reviewed and electronically signed by: SHEYLA MEREDITH DO on Mar 25 2024 8:33AM EST [facility] Radiology Study observation (narrative) Jessica wade [facility] XR Chest PA and LateralOrder ed By: [facility] Provider on 03-25-2024 [facility] Absolute lymphocyte countOrd ered By: Nighat Maloney on 2023 Lymphocytes Auto (Unsp spec) [#/Vol] 1.69 10*3/uL 0.83-4.51 [facility] Basophil percentageOrdered B y: Nighat Maloney on 2023 Basophils/100 WBC (Bld) 0.2 % 0-1 [facility] Eosinophils/100 WBC (Bld) 0.2 % 0-5 [facility] Neutrophils (Bld) [#/Vol] 12.3 10*3/uL 2.0-7.7 [facility] Neutrophils/100 WBC (Bld) 81.4 % 47-70 [facility] WBC (Bld) [#/Vol] 15.1 10*3/uL 4.4-11.0 [facility] Blood erythrocytes count (nu mber/volume)Ordered By: Nighat Maloney on 2023 RBC (Bld) [#/Vol] 3.46 10*6/uL 4.2-5.4 [facility] Blood hemoglobin measurement (mass/volume)Ordered By: Nighat Maloney on 2023 Hemoglobin (Bld) [Mass/Vol] 9.6 g/dL 12.0-15.0 [facility] Blood lymphocytes/100 leukoc ytesOrdered By: Nighat Maloney on 2023 Lymphocytes/100 WBC (Bld) 11.2 % 19-41 [facility] Blood monocytes/100 leukocyt esOrdered By: Nighat Maloney on 2023 Monocytes/100 WBC (Bld) 6.5 % 0-10 [facility] Blood platelet mean volumeOr dered By: Nighat Maloney on 2023 Platelet mean volume (Bld) [Entitic vol] 10.1 fL 6.2-12.0 [facility] Determination of erythrocyte mean corpuscular volume (MCV)Ordered By: Nighat Maloney on 2023 MCV (RBC) [Entitic vol] 88.2 fL 81-99 [facility] Hematocrit Auto (Bld) [Volum e fraction]Ordered By: Nighat Maloney on 2023 Hematocrit (Bld) [Volume fraction] 30.5 % 37-47 [facility] Laboratory - Hematology and Cell countsOrdered By: Nighat Maloney on 2023 Erythrocyte distribution width (RBC) [Entitic vol] 49.1 fL 35.1-43.9 [facility] Erythrocyte distribution width (RBC) [Ratio] 15.4 % 11.6-14.6 [facility] Immature granulocytes/100 WBC (Bld) 0.500 % 0.0-0.9 [facility] Comment on above: IG% - Immature Granu locytes (promyelocytes, myelocytes and metamyelocytes) > 1% indicates that a LEFT SHIFT is Present. MCH (RBC) [Entitic mass] 27.7 pg 27.0-32.0 [facility] Nucleated RBC/100 WBC (Bld) [Ratio] 0 % [facility]5 [facility] [Mass/Vol]Or dered By: Nighat Maloney on 2023 MCHC (RBC) [Mass/Vol] 31.5 g/dL 32-36 [facility] Platelets bldOrdered By: Jaci Maloney on 2023 Platelets (Bld) [#/Vol] 304 10*3/uL 150-450 [facility] No Panel InformationOrdered By: Nighat Maloney on 10-15-2023 Vaginal Amniotic Fluid Detection Positive Negative [facility]. [facility] Comment on above: Amniotic fluid prese nt indicates rupture of Membranes. RESULTS CALLED TO JENELLE 10/15/23 Lloyd Cid.REPORT READ BACK BY JENELLE . Serum Treponema species anti body detectionOrdered By: Nighat Maloney on 10-15-2023 Treponema sp Ab Ql (S) Non-Reactive [facility] URINE OB DIP B/Oon 3 Glucose Ql (U) Negative Neg mg/dL [facility] Protein.monoclonal (U) [Mass/Vol] Negative Neg mg/dL [facility] No Panel InformationOrdered By: Ari Blum on 10-10-2023 Vaginal Amniotic Fluid Detection Negative Negative [facility] Comment on above: Amniotic fluid not p resent indicates No Rupture of FetalMembranes at time of specimen collection. URINE OB DIP B/Oon 3 Glucose Ql (U) Negative Neg mg/dL [facility] Protein.monoclonal (U) [Mass/Vol] Negative Neg mg/dL [facility] URINE OB DIP B/Oon 3 Glucose Ql (U) Negative Neg mg/dL [facility] Protein.monoclonal (U) [Mass/Vol] Negative Neg mg/dL [facility] URINE OB DIP B/Oon 3 Glucose Ql (U) Negative Neg mg/dL [facility] Protein.monoclonal (U) [Mass/Vol] Negative Neg mg/dL [facility] No Panel InformationOrdered By: Ari Blum on 09-22-2023 Vaginal Amniotic Fluid Detection Negative Negative [facility] Comment on above: Amniotic fluid not p resent indicates No Rupture of FetalMembranes at time of specimen collection. OBSTETRIC ULTRASOUND WHIon 1 [facility] URINE OB DIP B/Oon 3 Glucose Ql (U) Negative Neg mg/dL [facility] Protein.monoclonal (U) [Mass/Vol] trace Neg mg/dL [facility] Basophil percentageOrdered B y: Radha Rowell on 08-17-2023 Basophil percentage 10-25 SEEN /hpf 0-5 [facility] WBC (Bld) [#/Vol] 10.4 10*3/uL 4.4-11.0 [facility] Bilirubin Test strip Ql (U)O rdered By: Radha Rowell on 08-17-2023 Bilirubin Ql (U) Negative Negative [facility] Blood erythrocytes count (nu mber/volume)Ordered By: Radha Rowell on 08-17-2023 RBC (Bld) [#/Vol] 3.96 10*6/uL 4.2-5.4 [facility] Blood hemoglobin measurement (mass/volume)Ordered By: Radha Rowell on 08-17-2023 Hemoglobin (Bld) [Mass/Vol] 11.6 g/dL 12.0-15.0 [facility] Blood platelet mean volumeOr dered By: Radha Rowell on 08-17-2023 Platelet mean volume (Bld) [Entitic vol] 10.4 fL 6.2-12.0 [facility] Culture, urineOrdered By: Meredith Rowell on 08-17-2023 Bacteria identified Cx Nom (U) Meth. resistant Staph. aureus [facility] Bacteria identified Cx Nom (U) Meth. resistant Staph. aureus [facility] Determination of erythrocyte mean corpuscular volume (MCV)Ordered By: Radha Rowell on 08-17-2023 MCV (RBC) [Entitic vol] 88.4 fL 81-99 [facility] Hematocrit Auto (Bld) [Volum e fraction]Ordered By: Radha Rowell on 08-17-2023 Hematocrit (Bld) [Volume fraction] 35.0 % 37-47 [facility] Ketones Test strip Ql (U)Ord ered By: Radha Rowell on 08-17-2023 Ketones Ql (U) Negative Negative [facility] Laboratory - Chemistry and C hemistry - challengeOrdered By: Radha Rowell on 08-17-2023 ALT [Catalytic activity/Vol] 29 U/L 13-56 [facility] Laboratory - Hematology and Cell countsOrdered By: Radha Rowell on 08-17-2023 Erythrocyte distribution width (RBC) [Entitic vol] 47.0 fL 35.1-43.9 [facility] Erythrocyte distribution width (RBC) [Ratio] 14.6 % 11.6-14.6 [facility] MCH (RBC) [Entitic mass] 29.3 pg 27.0-32.0 [facility] MCHC Auto (RBC) [Mass/Vol]Or dered By: Radha Rowell on 08-17-2023 MCHC (RBC) [Mass/Vol] 33.1 g/dL 32-36 [facility] Mucus LM Ql (Urine sed)Order ed By: Radha Rowell on 08-17-2023 Mucus Ql (Urine sed) 1+ /hpf [facility] Nitrite Test strip Ql (U)Ord ered By: Radha Rowell on 08-17-2023 Nitrite Ql (U) Positive Negative [facility] No Panel InformationOrdered By: Radha Rowell on 08-17-2023 Estimated Creatinine Clearance Calc 137.70 ml/min [facility] Estimated GFR (MDRD) Amer 147 mL/min >60 [facility] Comment on above: GFR Calc Estimated GFR (MDRD) Non-Af Amer 121 mL/min >60 [facility] Comment on above: Non- GFR Calc Platelets bldOrdered By: Sherly Rowell on 08-17-2023 Platelets (Bld) [#/Vol] 362 10*3/uL 150-450 [facility] Protein Test strip Ql (U)Ord ered By: Radha Rowell on 08-17-2023 Protein Ql (U) 30 mg/dl Negative [facility] Serum or plasma creatinine m easurement (mass/volume)Ordered By: Radha Rowell on 08-17-2023 Creatinine [Mass/Vol] 0.63 mg/dL 0.55-1.02 [facility] Comment on above: The validity of the calculated GFR & GFRAA in patients over 70 years has not been determined. Clinical correlation is essential. Serum or plasma uric acid me asurement (mass/volume)Ordered By: Radha Rowell on 08-17-2023 Urate [Mass/Vol] 4.5 mg/dL 2.6-6.0 [facility] Comment on above: The drugs N-Acetylcy steine and Metamizole may falsely depress this assay. Squamous epithelial cells de tection in urine sediment by light microscopyOrdered By: Radha Rowell on 08-17-2023 Epithelial cells.squamous LM Ql (Urine sed) 0-5 SEEN /hpf 5-10 [facility] Thin prep Papanicolaou smear with manual screeningOrdered By: Radha Rowell on 08-17-2023 Thin prep Papanicolaou smear with manual screening 11 U/L 15-37 [facility] Urine blood detectionOrdered By: Radha Rowell on 08-17-2023 RBC Ql (U) 10 /ul Negative [facility] RBC Ql (U) 0-5 SEEN /hpf 0-5 [facility] Urine clarityOrdered By: Sherly Rowell on 08-17-2023 Clarity (U) Clear Clear [facility] Urine color determinationOrd ered By: Radha Rowell on 08-17-2023 Color (U) Yellow Yellow [facility] Urine creatinine measurement (mass/volume)Ordered By: Radha Rowell on 08-17-2023 Creatinine (U) [Mass/Vol] 246.00 mg/dL NO RANGE EST. [facility] Urine glucose detectionOrder ed By: Radha Rowell on 08-17-2023 Glucose Ql (U) Normal mg/dl Normal [facility] Urine leukocyte esterase det ection by dipstickOrdered By: Radha Rowell on 08-17-2023 Leukocyte esterase Test strip Ql (U) 500 /ul Negative [facility] Urine pHOrdered By: Radha Rowell on 08-17-2023 pH (U) 6.5 [pH] 5.0 - 8.0 [facility] Urine protein measurement (m ass/volume)Ordered By: Radha Rowell on 08-17-2023 Protein (U) [Mass/Vol] 59.0 mg/dL 0.0-11.8 [facility] Urine protein/creatinine mas s ratioOrdered By: Radha Rwoell on 08-17-2023 Protein/Creatinine (U) [Mass ratio] 240 mg/g CRE 0-200 [facility] Urine sediment bacteria coun t by microscopy (number/high power field)Ordered By: Radha Rowell on 08-17-2023 Bacteria LM.HPF (Urine sed) [#/Area] 2 /[HPF] None Seen [facility] Urine specific gravity measu rementOrdered By: Radha Rowell on 08-17-2023 Specific gravity (U) [Rel density] 1.015 1.002-1.030 [facility] Urobilinogen Auto test strip Ql (U)Ordered By: Radha Rowell on 08-17-2023 Urobilinogen Ql (U) Normal mg/dl Normal [facility] URINE OB DIP B/Oon Glucose Ql (U) Negative Neg mg/dL [facility] Protein.monoclonal (U) [Mass/Vol] trace Neg mg/dL [facility] CBC panel Auto (Bld)on 07-23 Erythrocyte distribution width (RBC) [Ratio] 15.1 % High 11.5 - 15.0 % [facility] Hematocrit (Bld) [Volume fraction] 34.5 % Low 36.0 - 46.0 % [facility] Hemoglobin (Bld) [Mass/Vol] 11.6 g/dL 11.5 - 15.5 g/dL [facility] MCH (RBC) [Entitic mass] 29.4 pg 26.0 - 34.0 pg [facility] MCHC (RBC) [Mass/Vol] 33.6 g/dL 30.5 - 36.0 g/dL [facility] MCV (RBC) [Entitic vol] 87.6 fL 80.0 - 100.0 fL [facility] Nucleated RBC (Bld) [#/Vol] <0.01 k/uL [facility] Platelet mean volume (Bld) [Entitic vol] 9.6 fL 9.0 - 12.7 fL [facility] Platelets (Bld) [#/Vol] 368 10*3/uL 150 - 400 k /uL [facility] RBC (Bld) [#/Vol] 3.94 10*6/uL 3.90 - 5.2 0 m/uL [facility] WBC (Bld) [#/Vol] 10.33 10*3/uL 3.70 - 11 .00 k/uL [facility] 1999 panelon 07-23-2023 Albumin [Mass/Vol] 3.5 g/dL Low 3.9 - 4.9 g/dL [facility] ALP [Catalytic activity/Vol] 81 U/L 34 - 123 U/L [facility] ALT [Catalytic activity/Vol] 17 U/L 7 - 38 U/L [facility] Anion gap [Moles/Vol] 10 mmol/L 9 - 18 mmol/L [facility] AST [Catalytic activity/Vol] 12 U/L Low 13 - 35 U/L [facility] Bilirubin [Mass/Vol] 0.3 mg/dL 0.2 - 1 .3 mg/dL [facility] Calcium [Mass/Vol] 9.0 mg/dL 8.5 - 10. 2 mg/dL [facility] Chloride [Moles/Vol] 107 mmol/L High 97 - 10 5 mmol/L [facility] CO2 [Moles/Vol] 18 mmol/L Low 22 - 30 mmol/L [facility] Creatinine [Mass/Vol] 0.62 mg/dL 0.58 - 0.96 mg/dL [facility] Estimated Glomerular Filtration Rate 127 mL/min/1.73m >=60 mL/min/1.73m [facility] Glucose [Mass/Vol] 90 mg/dL 74 - 99 mg/dL [facility] Potassium [Moles/Vol] 4.0 mmol/L 3.7 - 5.1 mmol/L [facility] Protein [Mass/Vol] 6.4 g/dL 6.3 - 8.0 g/dL [facility] Sodium [Moles/Vol] 135 mmol/L Low 136 - 144 mmol/L [facility] Urea nitrogen [Mass/Vol] 5 mg/dL Low 7 - 21 mg/dL [facility] URINE OB DIP B/Oon 3 Glucose Ql (U) Negative Neg mg/dL [facility] Protein.monoclonal (U) [Mass/Vol] 30 mg/dL Neg mg/dL [facility] metabolic 1999 panelon 07-11-2023 Albumin [Mass/Vol] 3.6 g/dL Low 3.9 - 4.9 g/dL [facility] ALP [Catalytic activity/Vol] 120 U/L 34 - 123 U/L [facility] ALT [Catalytic activity/Vol] 18 U/L 7 - 38 U/L [facility] Anion gap [Moles/Vol] 9 mmol/L 9 - 18 mmol/L [facility] AST [Catalytic activity/Vol] 13 U/L 13 - 35 U/L [facility] Bilirubin [Mass/Vol] 0.3 mg/dL 0.2 - 1 .3 mg/dL [facility] Calcium [Mass/Vol] 9.2 mg/dL 8.5 - 10. 2 mg/dL [facility] Chloride [Moles/Vol] 107 mmol/L High 97 - 10 5 mmol/L [facility] CO2 [Moles/Vol] 18 mmol/L Low 22 - 30 mmol/L [facility] Creatinine [Mass/Vol] 0.61 mg/dL 0.58 - 0.96 mg/dL [facility] Estimated Glomerular Filtration Rate 127 mL/min/1.73m >=60 mL/min/1.73m [facility] Glucose [Mass/Vol] 99 mg/dL 74 - 99 mg/dL [facility] Potassium [Moles/Vol] 4.1 mmol/L 3.7 - 5.1 mmol/L [facility] Protein [Mass/Vol] 6.6 g/dL 6.3 - 8.0 g/dL [facility] Sodium [Moles/Vol] 134 mmol/L Low 136 - 144 mmol/L [facility] Urea nitrogen [Mass/Vol] 7 mg/dL 7 - 21 mg/dL [facility] UA DIP, URINE (POC)on 2022 BILIRUBIN UA (POCT) Negative Negative [facility] CLARITY UA (POCT) Cloudy [facility] COLOR UA (POCT) Yellow [facility] GLUCOSE UA (POCT) Negative Negative mg/dL [facility] HEMOGLOBIN/BLOOD UA (POCT) Trace-intact Abnormal Negative [facility] KETONE UA (POCT) Negative Negative mg/dL [facility] LEUKOCYTES UA (POCT) Small Abnormal Negative [facility] NITRITE UA (POCT) Positive Abnormal Negative [facility] PH UA (POCT) 6.5 4.5 - 8.0 [facility] Protein Ql (U) 100 mg/dL Abnormal Negative mg/dL [facility] SPECIFIC GRAVITY UA (POCT) 1.025 1.005 - 1.030 [facility] UROBILINOGEN UA (POCT) 0.2 E.U./dL Normal E.U./ dL [facility] URINE OB DIP B/Oon 3 Glucose Ql (U) Negative Neg mg/dL [facility] Protein.monoclonal (U) [Mass/Vol] 30 mg/dL Neg mg/dL [facility] URINE OB DIP B/Oon 3 Glucose Ql (U) Negative Neg mg/dL [facility] Protein.monoclonal (U) [Mass/Vol] trace Neg mg/dL [facility] OBSTETRIC ULTRASOUND WHIon 0 06-07-2023 [facility] Basophil percentageOrdered B y: Mustapha Serrato on 06-03-2023 Basophil percentage 10-25 SEEN /hpf 0-5 [facility] Chloride [Moles/Vol] 111 mmol/L 98-107 [facility] Glucose [Mass/Vol] 88 mg/dL 74-106 [facility] Potassium [Moles/Vol] 3.6 mmol/L 3.5-5.1 [facility] Sodium [Moles/Vol] 140 mmol/L 136-145 [facility] Bilirubin Test strip Ql (U)O rdered By: Mustapha Serrato on 06-03-2023 Bilirubin Ql (U) Negative Negative [facility] Ketones Test strip Ql (U)Ord ered By: Mustapha Serrato on 06-03-2023 Ketones Ql (U) Negative Negative [facility] Laboratory - Chemistry and C hemistry - challengeOrdered By: Mustapha Serrato on 06-03-2023 CO2 [Moles/Vol] 25.0 mmol/L 21.0-32.0 [facility] Urea nitrogen/Creatinine [Mass ratio] 8.3 mg/mg 10-20 [facility] Mucus LM Ql (Urine sed)Order ed By: Mustapha Serrato on 06-03-2023 Mucus Ql (Urine sed) 0 SEEN /hpf [facility] Nitrite Test strip Ql (U)Ord ered By: Mustapha Serrato on 06-03-2023 Nitrite Ql (U) Negative Negative [facility] No Panel InformationOrdered By: Mustapha Serrato on 06-03-2023 Estimated Creatinine Clearance Calc 142.22 ml/min [facility] Estimated GFR (MDRD) Amer 154 mL/min >60 [facility] Comment on above: GFR Calc Estimated GFR (MDRD) Non-Af Amer 127 mL/min >60 [facility] Comment on above: Non- GFR Calc Protein Test strip Ql (U)Ord ered By: Mustapha Serrato on 06-03-2023 Protein Ql (U) 15 mg/dl Negative [facility] Serum or plasma calcium chet urement (mass/volume)Ordered By: Mustapha Serrato on 06-03-2023 Calcium [Mass/Vol] 8.6 mg/dL 8.5-10.1 [facility] Serum or plasma creatinine m easurement (mass/volume)Ordered By: Mustapha Serrato on 06-03-2023 Creatinine [Mass/Vol] 0.61 mg/dL 0.55-1.02 [facility] Comment on above: The validity of the calculated GFR & GFRAA in patients over 70 years has not been determined. Clinical correlation is essential. Serum or plasma urea nitroge n measurement (mass/volume)Ordered By: Mustapha Serrato on 06-03-2023 Urea nitrogen [Mass/Vol] 5 mg/dL 7-18 [facility] Squamous epithelial cells de tection in urine sediment by light microscopyOrdered By: Mustapha Serrato on 06-03-2023 Epithelial cells.squamous LM Ql (Urine sed) 25-50 SEEN /hpf 5-10 [facility] Thin prep Papanicolaou smear with manual screeningOrdered By: Mustapha Serrato on 06-03-2023 Thin prep Papanicolaou smear with manual screening 4 5-15 [facility] Urine blood detectionOrdered By: Mustapha Serrato on 06-03-2023 RBC Ql (U) 10 /ul Negative [facility] RBC Ql (U) 0 SEEN /hpf 0-5 [facility] Urine clarityOrdered By: Gustabo Serrato on 06-03-2023 Clarity (U) Cloudy Clear [facility] Urine color determinationOrd ered By: Mustapha Serrato on 06-03-2023 Color (U) Yellow Yellow [facility] Urine glucose detectionOrder ed By: Mustapha Serrato on 06-03-2023 Glucose Ql (U) Normal mg/dl Normal [facility] Urine leukocyte esterase det ection by dipstickOrdered By: Mustapha Serrato on 06-03-2023 Leukocyte esterase Test strip Ql (U) 500 /ul Negative [facility] Urine pHOrdered By: Mustapha wilson on 06-03-2023 pH (U) 7.0 [pH] 5.0 - 8.0 [facility] Urine sediment bacteria coun t by microscopy (number/high power field)Ordered By: Mustapha Serrato on 06-03-2023 Bacteria LM.HPF (Urine sed) [#/Area] 0 /[HPF] None Seen [facility] Urine specific gravity measu rementOrdered By: Mustapha Serrato on 06-03-2023 Specific gravity (U) [Rel density] 1.010 1.002-1.030 [facility] Urobilinogen Auto test strip Ql (U)Ordered By: Mustapha Serrato on 06-03-2023 Urobilinogen Ql (U) Normal mg/dl Normal [facility] Culture, urineOrdered By: Dr Quincy Estrada on 04-05-2023 Bacteria identified Cx Nom (U) Staphylococcus aureus [facility] Basophil percentageOrdered B y: ED PROVIDER on 04-03-2023 Basophil percentage 25-50 SEEN /hpf 0-5 [facility] Bilirubin Test strip Ql (U)O rdered By: ED PROVIDER on 04-03-2023 Bilirubin Ql (U) Negative Negative [facility] Culture, urineOrdered By: Er bola Estrada on 04-03-2023 Bacteria identified Cx Nom (U) Staphylococcus aureus [facility] Ketones Test strip Ql (U)Ord ered By: ED PROVIDER on 04-03-2023 Ketones Ql (U) 5 mg/dl Negative [facility] Mucus LM Ql (Urine sed)Order ed By: ED PROVIDER on 04-03-2023 Mucus Ql (Urine sed) 1+ /hpf [facility] Nitrite Test strip Ql (U)Ord ered By: ED PROVIDER on 04-03-2023 Nitrite Ql (U) Negative Negative [facility] Protein Test strip Ql (U)Ord ered By: ED PROVIDER on 04-03-2023 Protein Ql (U) 30 mg/dl Negative [facility] Squamous epithelial cells de tection in urine sediment by light microscopyOrdered By: ED PROVIDER on 04-03-2023 Epithelial cells.squamous LM Ql (Urine sed) 0-5 SEEN /hpf 5-10 [facility] Urine blood detectionOrdered By: ED PROVIDER on 04-03-2023 RBC Ql (U) 25 /ul Negative [facility] RBC Ql (U) 0-5 SEEN /hpf 0-5 [facility] Urine clarityOrdered By: ED PROVIDER on 04-03-2023 Clarity (U) Sl. Cloudy Clear [facility] Urine color determinationOrd ered By: ED PROVIDER on 04-03-2023 Color (U) Yellow Yellow [facility] Urine glucose detectionOrder ed By: ED PROVIDER on 04-03-2023 Glucose Ql (U) Normal mg/dl Normal [facility] Urine leukocyte esterase det ection by dipstickOrdered By: ED PROVIDER on 04-03-2023 Leukocyte esterase Test strip Ql (U) 500 /ul Negative [facility] Urine pHOrdered By: ED PROVI MARK on 04-03-2023 pH (U) 6.0 [pH] 5.0 - 8.0 [facility] Urine sediment bacteria coun t by microscopy (number/high power field)Ordered By: ED PROVIDER on 04-03-2023 Bacteria LM.HPF (Urine sed) [#/Area] 1 /[HPF] None Seen [facility] Urine specific gravity measu rementOrdered By: ED PROVIDER on 04-03-2023 Specific gravity (U) [Rel density] 1.025 1.002-1.030 [facility] Urobilinogen Auto test strip Ql (U)Ordered By: ED PROVIDER on 04-03-2023 Urobilinogen Ql (U) Normal mg/dl Normal [facility] POC PLANISHING HAMMER OPERATOR ULTRASOUNDon 04-01-20 [facility] Culture, urineOrdered By: Olga Pimentel on 03-13-2023 Bacteria identified Cx Nom (U) Positive [facility] Absolute lymphocyte countOrd ered By: Judit Pimentel on 03-11-2023 Lymphocytes Auto (Unsp spec) [#/Vol] 1.61 10*3/uL 0.83-4.51 [facility] Basophil percentageOrdered B y: Judit Pimentel on 03-11-2023 Basophils/100 WBC (Bld) 0.6 % 0-1 [facility] Eosinophils/100 WBC (Bld) 1.5 % 0-5 [facility] Neutrophils (Bld) [#/Vol] 6.4 10*3/uL 2.0-7.7 [facility] Neutrophils/100 WBC (Bld) 73.5 % 47-70 [facility] WBC (Bld) [#/Vol] 8.7 10*3/uL 4.4-11.0 [facility] Blood erythrocytes count (nu mber/volume)Ordered By: Judit Pimentel on 03-11-2023 RBC (Bld) [#/Vol] 4.46 10*6/uL 4.2-5.4 [facility] Blood hemoglobin measurement (mass/volume)Ordered By: Judit Pimentel on 03-11-2023 Hemoglobin (Bld) [Mass/Vol] 12.9 g/dL 12.0-15.0 [facility] Blood lymphocytes/100 leukoc ytesOrdered By: Judit Pimentel on 03-11-2023 Lymphocytes/100 WBC (Bld) 18.5 % 19-41 [facility] Blood monocytes/100 leukocyt esOrdered By: Judit Pimentel on 03-11-2023 Monocytes/100 WBC (Bld) 5.6 % 0-10 [facility] Blood platelet mean volumeOr dered By: Judit Pimentel on 03-11-2023 Platelet mean volume (Bld) [Entitic vol] 10.5 fL 6.2-12.0 [facility] Culture, urineOrdered By: Olga Pimentel on 03-11-2023 Bacteria identified Cx Nom (U) Positive [facility] Determination of erythrocyte mean corpuscular volume (MCV)Ordered By: Judit Pimentel on 03-11-2023 MCV (RBC) [Entitic vol] 88.6 fL 81-99 [facility] HIV 1 and HIV-2 antibody ass ay with HIV-1 p24 antigen detectionOrdered By: Judit Pimentel on 03-11-2023 HIV 1+2 Ab+HIV1 p24 Ag IA Ql Non-Reactive Nonreactive [facility] Hematocrit Auto (Bld) [Volum e fraction]Ordered By: Judit Pimentel on 03-11-2023 Hematocrit (Bld) [Volume fraction] 39.5 % 37-47 [facility] Laboratory - Hematology and Cell countsOrdered By: Judit Pimentel on 03-11-2023 Erythrocyte distribution width (RBC) [Entitic vol] 45.1 fL 35.1-43.9 [facility] Erythrocyte distribution width (RBC) [Ratio] 14.0 % 11.6-14.6 [facility] Immature granulocytes/100 WBC (Bld) 0.300 % 0.0-0.9 [facility] Comment on above: IG% - Immature Granu locytes (promyelocytes, myelocytes and metamyelocytes) > 1% indicates that a LEFT SHIFT is Present. MCH (RBC) [Entitic mass] 28.9 pg 27.0-32.0 [facility] Nucleated RBC/100 WBC (Bld) [Ratio] 0 % 0-5 [facility] MCHC Auto (RBC) [Mass/Vol]Or dered By: Judit Pimentel on 03-11-2023 MCHC (RBC) [Mass/Vol] 32.7 g/dL 32-36 [facility] No Panel InformationOrdered By: Judit Pimentel on 03-11-2023 Hepatitis B Surface Antigen Non-Reactive Nonreactive [facility] Hepatitis C Antibody Non-Reactive Nonreactive [facility] Comment on above: Non Reactive: < 0.8 Equivocal: >/= 0.8 to < 1.0 Reactive: >/= 1.0The CDC recommends that a reactive/equivocal HCV antibody result be followed up by the HCV Nucleic Acid Amplificationtest ([id number]) Rubella IgG Antibody Reactive Nonreactive [facility] Comment on above: Antibody Results Int erpretation of Immune Status Non Reactive Presumed Non-Immune Equivocal Equivocal Reactive Presumed Immune Platelets bldOrdered By: Marzena Pimentel on 03-11-2023 Platelets (Bld) [#/Vol] 433 10*3/uL 150-450 [facility] Serum Treponema species anti body detectionOrdered By: Judit Pimentel on 03-11-2023 Treponema sp Ab Ql (S) Non-Reactive [facility] Serum Varicella zoster virus IgG antibody assay by immunoassay (units/volume)Ordered By: Judit Pimentel on 03-11-2023 VZV IgG IA Qn (S) 692 index Immune >165 [facility] Comment on above: Negative <135 Equivo dhruv 135 - 165 Positive >165A positive result generally indicates exposure to thepathogen or administration of specific immunoglobulins,but it is not indication of active infection or stageof disease.Performed at: - [facility] [id number] [place], [place] [id number] Director: Reilly Jama PhD, Phone: [phone] Serum or plasma choriogonado tropin detectionOrdered By: Dr. Corona on 03-06-2023 HCG ( test) [place]l [address] mIU/mL <4 [facility] Comment on above: hCG levels with Gest ational AgeGestational Age hCG mIU/mL (IU/L)0.2 - 1 week 5 - 501-2 weeks 50 - 5002-3 weeks 100 - 24115-4 weeks 500 - 452138-6 weeks 1000 - 381262-9 weeks 72002 - 100,0006-8 weeks 50049 - 200,0002-3 months 93231 - 100,000 Absolute lymphocyte countOrd ered By: Clari Burnham on 03-03-2023 Lymphocytes Auto (Unsp spec) [#/Vol] 1.81 10*3/uL 0.83-4.51 [facility] Basophil percentageOrdered B y: Clari Burnham on 03-03-2023 Basophils/100 WBC (Bld) 0.6 % 0-1 [facility] Eosinophils/100 WBC (Bld) 1.9 % 0-5 [facility] Neutrophils (Bld) [#/Vol] 5.6 10*3/uL 2.0-7.7 [facility] Neutrophils/100 WBC (Bld) 67.8 % 47-70 [facility] WBC (Bld) [#/Vol] 8.2 10*3/uL 4.4-11.0 [facility] Blood erythrocytes count (nu mber/volume)Ordered By: Clari Burnham on 03-03-2023 RBC (Bld) [#/Vol] 4.29 10*6/uL 4.2-5.4 [facility] Blood hemoglobin measurement (mass/volume)Ordered By: Clari Burnham on 03-03-2023 Hemoglobin (Bld) [Mass/Vol] 12.5 g/dL 12.0-15.0 [facility] Blood lymphocytes/100 leukoc ytesOrdered By: Clari Burnham on 03-03-2023 Lymphocytes/100 WBC (Bld) 22.0 % 19-41 [facility] Blood monocytes/100 leukocyt esOrdered By: Clari Burnham on 03-03-2023 Monocytes/100 WBC (Bld) 7.5 % 0-10 [facility] Blood platelet mean volumeOr dered By: Clari Burnham on 03-03-2023 Platelet mean volume (Bld) [Entitic vol] 10.2 fL 6.2-12.0 [facility] Determination of erythrocyte mean corpuscular volume (MCV)Ordered By: Clari Burnham on 03-03-2023 MCV (RBC) [Entitic vol] 88.3 fL 81-99 [facility] Hematocrit Auto (Bld) [Volum e fraction]Ordered By: Clari Burnham on 03-03-2023 Hematocrit (Bld) [Volume fraction] 37.9 % 37-47 [facility] Laboratory - Hematology and Cell countsOrdered By: Clari Burnham on 03-03-2023 Erythrocyte distribution width (RBC) [Entitic vol] 45.1 fL 35.1-43.9 [facility] Erythrocyte distribution width (RBC) [Ratio] 14.0 % 11.6-14.6 [facility] Immature granulocytes/100 WBC (Bld) 0.200 % 0.0-0.9 [facility] Comment on above: IG% - Immature Granu locytes (promyelocytes, myelocytes and metamyelocytes) > 1% indicates that a LEFT SHIFT is Present. MCH (RBC) [Entitic mass] 29.1 pg 27.0-32.0 [facility] Nucleated RBC/100 WBC (Bld) [Ratio] 0 % 0-5 [facility] MCHC Auto (RBC) [Mass/Vol]Or dered By: Clari Burnham on 03-03-2023 MCHC (RBC) [Mass/Vol] 33.0 g/dL 32-36 [facility] Platelets bldOrdered By: Edu Burnham on 03-03-2023 Platelets (Bld) [#/Vol] 402 10*3/uL 150-450 [facility] Serum or plasma choriogonado tropin detectionOrdered By: Clari Burnham on 03-03-2023 HCG ( test) Ql 5957 mIU/mL <4 [facility] Comment on above: hCG levels with Gest ational AgeGestational Age hCG mIU/mL (IU/L)0.2 - 1 week 5 - 501-2 weeks 50 - 5002-3 weeks 100 - 19030-9 weeks 500 - 840043-8 weeks 1000 - 542495-7 weeks 86340 - 100,0006-8 weeks 95596 - 200,0002-3 months 32728 - 100,000 Laboratory - Chemistry and C hemistry - challengeOrdered By: Dr. Watson on 11-12-2022 HCG ( test) Ql (U) Negative [facility] Comment on above: Very dilute urine sp ecimens, as indicated by a low specificgravity, may not contain sales representative womens health levels of hCG. If is still suspected, a first morning urinespecimen should be collected 48 hours later and tested. Absolute lymphocyte countOrd ered By: ED PROVIDER on 11-07-2022 Lymphocytes Auto (Unsp spec) [#/Vol] 2.61 10*3/uL 0.83-4.51 [facility] Basophil percentageOrdered B y: ED PROVIDER on 11-07-2022 Basophil percentage 25-50 SEEN /hpf 0-5 [facility] Basophils/100 WBC (Bld) 0.5 % 0-1 [facility] Chloride [Moles/Vol] 112 mmol/L 98-107 [facility] Eosinophils/100 WBC (Bld) 2.4 % 0-5 [facility] Glucose [Mass/Vol] 114 mg/dL 74-106 [facility] Comment on above: Fasting Glucose resu lt from 100 to 125 mg/dL suggests IMPAIRED HOMEOSTASIS per A.D.A. criteria. Neutrophils (Bld) [#/Vol] 4.9 10*3/uL 2.0-7.7 [facility] Neutrophils/100 WBC (Bld) 58.3 % 47-70 [facility] Potassium [Moles/Vol] 3.8 mmol/L 3.5-5.1 [facility] Sodium [Moles/Vol] 141 mmol/L 136-145 [facility] WBC (Bld) [#/Vol] 8.4 10*3/uL 4.4-11.0 [facility] Basophil percentageOrdered B y: Dr. Corona on 11-07-2022 Bilirubin [Mass/Vol] 0.40 mg/dL 0.20-1.00 [facility] Comment on above: For patients on eltr ombopag therapy, use of Dimension [place] TBIL is not recommended. Protein [Mass/Vol] 7.3 g/dL 6.4-8.2 [facility] Beta hCG serum qualOrdered B y: ED PROVIDER on 11-07-2022 Beta HCG ( test) Ql Negative [facility] Bilirubin Test strip Ql (U)O rdered By: ED PROVIDER on 11-07-2022 Bilirubin Ql (U) Negative Negative [facility] Blood erythrocytes count (nu mber/volume)Ordered By: ED PROVIDER on 11-07-2022 RBC (Bld) [#/Vol] 4.73 10*6/uL 4.2-5.4 [facility] Blood hemoglobin measurement (mass/volume)Ordered By: ED PROVIDER on 11-07-2022 Hemoglobin (Bld) [Mass/Vol] 14.0 g/dL 12.0-15.0 [facility] Blood lymphocytes/100 leukoc ytesOrdered By: ED PROVIDER on 11-07-2022 Lymphocytes/100 WBC (Bld) 31.1 % 19-41 [facility] Blood monocytes/100 leukocyt esOrdered By: ED PROVIDER on 11-07-2022 Monocytes/100 WBC (Bld) 7.3 % 0-10 [facility] Blood platelet mean volumeOr dered By: ED PROVIDER on 11-07-2022 Platelet mean volume (Bld) [Entitic vol] 10.8 fL 6.2-12.0 [facility] Determination of erythrocyte mean corpuscular volume (MCV)Ordered By: ED PROVIDER on 11-07-2022 MCV (RBC) [Entitic vol] 86.9 fL 81-99 [facility] Direct bilirubinOrdered By: Dr. Corona on 11-07-2022 Bilirubin.direct [Mass/Vol] 0.10 mg/dL 0.00-0.30 [facility] Hematocrit Auto (Bld) [Volum e fraction]Ordered By: ED PROVIDER on 11-07-2022 Hematocrit (Bld) [Volume fraction] 41.1 % 37-47 [facility] Ketones Test strip Ql (U)Ord ered By: ED PROVIDER on 11-07-2022 Ketones Ql (U) Negative Negative [facility] Laboratory - Chemistry and C hemistry - challengeOrdered By: Dr. Corona on 11-07-2022 ALP [Catalytic activity/Vol] 85 U/L 45-117 [facility] ALT [Catalytic activity/Vol] 117 U/L 13-56 [facility] Globulin (S) [Mass/Vol] 3.4 g/dL 2.2-4.2 [facility] Lipase [Catalytic activity/Vol] 215 U/L 73-393 [facility] Laboratory - Chemistry and C hemistry - challengeOrdered By: ED PROVIDER on 11-07-2022 CO2 [Moles/Vol] 25.0 mmol/L 21.0-32.0 [facility] Urea nitrogen/Creatinine [Mass ratio] 10.6 mg/mg 10-20 [facility] Laboratory - Hematology and Cell countsOrdered By: ED PROVIDER on 11-07-2022 Erythrocyte distribution width (RBC) [Entitic vol] 45.5 fL 35.1-43.9 [facility] Erythrocyte distribution width (RBC) [Ratio] 14.1 % 11.6-14.6 [facility] Immature granulocytes/100 WBC (Bld) 0.400 % 0.0-0.9 [facility] Comment on above: IG% - Immature Granu locytes (promyelocytes, myelocytes and metamyelocytes) > 1% indicates that a LEFT SHIFT is Present. MCH (RBC) [Entitic mass] 29.6 pg 27.0-32.0 [facility] Nucleated RBC/100 WBC (Bld) [Ratio] 0 % 0-5 [facility] MCHC Auto (RBC) [Mass/Vol]Or dered By: ED PROVIDER on 11-07-2022 MCHC (RBC) [Mass/Vol] 34.1 g/dL 32-36 [facility] Mucus LM Ql (Urine sed)Order ed By: ED PROVIDER on 11-07-2022 Mucus Ql (Urine sed) 0 SEEN /hpf [facility] Nitrite Test strip Ql (U)Ord ered By: ED PROVIDER on 11-07-2022 Nitrite Ql (U) Negative Negative [facility] No Panel InformationOrdered By: ED PROVIDER on 11-07-2022 Estimated Creatinine Clearance Calc 91.32 ml/min [facility] Estimated GFR (MDRD) Amer 93 mL/min >60 [facility] Comment on above: GFR Calc Estimated GFR (MDRD) Non-Af Amer 77 mL/min >60 [facility] Comment on above: Non- GFR Calc Platelets bldOrdered By: ED PROVIDER on 11-07-2022 Platelets (Bld) [#/Vol] 425 10*3/uL 150-450 [facility] Protein Test strip Ql (U)Ord ered By: ED PROVIDER on 11-07-2022 Protein Ql (U) Negative Negative [facility] Serum or plasma albumin chet urement (mass/volume)Ordered By: Dr. Corona on 11-07-2022 Albumin [Mass/Vol] 3.9 g/dL 3.2-5.0 [facility] Serum or plasma calcium chet urement (mass/volume)Ordered By: ED PROVIDER on 11-07-2022 Calcium [Mass/Vol] 9.2 mg/dL 8.5-10.1 [facility] Serum or plasma creatinine m easurement (mass/volume)Ordered By: ED PROVIDER on 11-07-2022 Creatinine [Mass/Vol] 0.95 mg/dL 0.55-1.02 [facility] Comment on above: The validity of the calculated GFR & GFRAA in patients over 70 years has not been determined. Clinical correlation is essential. Serum or plasma urea nitroge n measurement (mass/volume)Ordered By: ED PROVIDER on 11-07-2022 Urea nitrogen [Mass/Vol] 10 mg/dL 7-18 [facility] Squamous epithelial cells de tection in urine sediment by light microscopyOrdered By: ED PROVIDER on 11-07-2022 Epithelial cells.squamous LM Ql (Urine sed) 5-10 SEEN /hpf 5-10 [facility] Stool gastrointestinal hemog lobin detection by immunologic methodOrdered By: Dr. Corona on 11-07-2022 Lower GI hemoglobin IA Ql (Stl) [facility] Thin prep Papanicolaou smear with manual screeningOrdered By: Dr. Corona on 11-07-2022 Thin prep Papanicolaou smear with manual screening 42 U/L 15-37 [facility] Thin prep Papanicolaou smear with manual screeningOrdered By: ED PROVIDER on 11-07-2022 Thin prep Papanicolaou smear with manual screening 4 5-15 [facility] Urine blood detectionOrdered By: ED PROVIDER on 11-07-2022 RBC Ql (U) 10 /ul Negative [facility] RBC Ql (U) 0-5 SEEN /hpf 0-5 [facility] Urine clarityOrdered By: ED PROVIDER on 11-07-2022 Clarity (U) Cloudy Clear [facility] Urine color determinationOrd ered By: ED PROVIDER on 11-07-2022 Color (U) Yellow Yellow [facility] Urine glucose detectionOrder ed By: ED PROVIDER on 11-07-2022 Glucose Ql (U) Normal mg/dl Normal [facility] Urine leukocyte esterase det ection by dipstickOrdered By: ED PROVIDER on 11-07-2022 Leukocyte esterase Test strip Ql (U) 500 /ul Negative [facility] Urine pHOrdered By: ED PROVI MARK on 11-07-2022 pH (U) 6.0 [pH] 5.0 - 8.0 [facility] Urine sediment bacteria coun t by microscopy (number/high power field)Ordered By: ED PROVIDER on 11-07-2022 Bacteria LM.HPF (Urine sed) [#/Area] 1 /[HPF] None Seen [facility] Urine specific gravity measu rementOrdered By: ED PROVIDER on 11-07-2022 Specific gravity (U) [Rel density] 1.020 1.002-1.030 [facility] Urobilinogen Auto test strip Ql (U)Ordered By: ED PROVIDER on 11-07-2022 Urobilinogen Ql (U) Normal mg/dl Normal [facility] Absolute lymphocyte counton 10-21-2022 Lymphocytes Auto (Unsp spec) [#/Vol] 2.42 10*3/uL 0.83-4.51 [facility] Work Phone: Basophil percentageon 2021 Basophils/100 WBC (Bld) 0.6 % 0-1 [facility] Work Phone: Bilirubin [Mass/Vol] 0.50 mg/dL 0.20-1.00 [facility] Work Phone: Comment on above: For patients on eltr ombopag therapy, use of Dimension [place] TBIL is not recommended. Chloride [Moles/Vol] 109 mmol/L 98-107 [facility] Work Phone: Eosinophils/100 WBC (Bld) 3.1 % 0-5 [facility] Work Phone: Glucose [Mass/Vol] 95 mg/dL 74-106 [facility] Work Phone: Neutrophils (Bld) [#/Vol] 4.6 10*3/uL 2.0-7.7 [facility] Work Phone: Neutrophils/100 WBC (Bld) 56.6 % 47-70 [facility] Work Phone: [phone] Potassium [Moles/Vol] 3.9 mmol/L 3.5-5.1 [facility] Work Phone: Protein [Mass/Vol] 7.5 g/dL 6.4-8.2 [facility] Work Phone: Sodium [Moles/Vol] 140 mmol/L 136-145 [facility] Work Phone: WBC (Bld) [#/Vol] 8.2 10*3/uL 4.4-11.0 [facility] Work Phone: [phone] Blood erythrocytes count (nu mber/volume)on 10-21-2022 RBC (Bld) [#/Vol] 4.38 10*6/uL 4.2-5.4 [facility] Work Phone: Blood hemoglobin measurement (mass/volume)on 10-21-2022 Hemoglobin (Bld) [Mass/Vol] 12.7 g/dL 12.0-15.0 [facility] Work Phone: Blood lymphocytes/100 leukoc yteson 10-21-2022 Lymphocytes/100 WBC (Bld) 29.6 % 19-41 [facility] Work Phone: Blood monocytes/100 leukocyt eson 10-21-2022 Monocytes/100 WBC (Bld) 10.0 % 0-10 [facility] Work Phone: Blood platelet mean volumeon 10-21-2022 Platelet mean volume (Bld) [Entitic vol] 10.7 fL 6.2-12.0 [facility] Work Phone: Determination of erythrocyte mean corpuscular volume (MCV)on 10-21-2022 MCV (RBC) [Entitic vol] 86.1 fL 81-99 [facility] Work Phone: Hematocrit Auto (Bld) [Volum e fraction]on 10-21-2022 Hematocrit (Bld) [Volume fraction] 37.7 % 37-47 [facility] Work Phone: Laboratory - Chemistry and C hemistry - challengeon 10-21-2022 ALP [Catalytic activity/Vol] 83 U/L 45-117 [facility] Work Phone: ALT [Catalytic activity/Vol] 104 U/L 13-56 [facility] Work Phone: CO2 [Moles/Vol] 25.0 mmol/L 21.0-32.0 [facility] Work Phone: Globulin (S) [Mass/Vol] 3.6 g/dL 2.2-4.2 [facility] Work Phone: Lipase [Catalytic activity/Vol] 232 U/L 73-393 [facility] Work Phone: Urea nitrogen/Creatinine [Mass ratio] 11.0 mg/mg 09-20 [facility] Work Phone: Laboratory - Hematology and Cell countson 10-21-2022 Erythrocyte distribution width (RBC) [Entitic vol] 47.4 fL 35.1-43.9 [facility] Work Phone: Erythrocyte distribution width (RBC) [Ratio] 14.8 % 11.6-14.6 [facility] Work Phone: Immature granulocytes/100 WBC (Bld) 0.100 % 0.0-0.9 [facility] Work Phone: Comment on above: IG% - Immature Granu locytes (promyelocytes, myelocytes and metamyelocytes) > 1% indicates that a LEFT SHIFT is Present. MCH (RBC) [Entitic mass] 29.0 pg 27.0-32.0 [facility] Work Phone: Nucleated RBC/100 WBC (Bld) [Ratio] 0 % 0-5 [facility] Work Phone: MCHC Auto (RBC) [Mass/Vol]on 10-21-2022 MCHC (RBC) [Mass/Vol] 33.7 g/dL 32-36 [facility] Work Phone: No Panel Informationon 10-21 Estimated Creatinine Clearance Calc 79.59 ml/min [facility] Work Phone: Estimated GFR (MDRD) Amer 79 mL/min >60 [facility] Work Phone: Comment on above: GFR Calc Estimated GFR (MDRD) Non-Af Amer 65 mL/min >60 [facility] Work Phone: Comment on above: Non- GFR Calc Platelets bldon 10-21-2022 Platelets (Bld) [#/Vol] 360 10*3/uL 150-450 [facility] Work Phone: Serum or plasma albumin chet urement (mass/volume)on 10-21-2022 Albumin [Mass/Vol] 3.9 g/dL 3.2-5.0 [facility] Work Phone: Serum or plasma albumin/glob ulin mass ratioon 10-21-2022 Albumin/Globulin [Mass ratio] 1.1 {ratio} 0.9-2.4 [facility] Work Phone: Serum or plasma calcium chet urement (mass/volume)on 10-21-2022 Calcium [Mass/Vol] 9.4 mg/dL 8.5-10.1 [facility] Work Phone: Serum or plasma creatinine m easurement (mass/volume)on 10-21-2022 Creatinine [Mass/Vol] 1.09 mg/dL 0.55-1.02 [facility] Work Phone: Comment on above: The validity of the calculated GFR & GFRAA in patients over 70 years has not been determined. Clinical correlation is essential. Serum or plasma urea nitroge n measurement (mass/volume)on 10-21-2022 Urea nitrogen [Mass/Vol] 12 mg/dL 7-18 [facility] Work Phone: Thin prep Papanicolaou smear with manual screeningon 10-21-2022 Thin prep Papanicolaou smear with manual screening 35 U/L 15-37 [facility] Work Phone: Thin prep Papanicolaou smear with manual screening 6 - [facility] Work Phone: Basophil percentageon 2021 Basophil percentage 0-5 SEEN /hpf 0-5 [facility] Work Phone: Bilirubin Test strip Ql (U)o n 2022 Bilirubin Ql (U) Negative Negative [facility] Work Phone: Ketones Test strip Ql (U)on 2022 Ketones Ql (U) 5 mg/dl Negative [facility] Work Phone: Mucus LM Ql (Urine sed)on Mucus Ql (Urine sed) 0 SEEN /hpf [facility] Work Phone: Nitrite Test strip Ql (U)on 2022 Nitrite Ql (U) Negative Negative [facility] Work Phone: Protein Test strip Ql (U)on 2022 Protein Ql (U) Negative Negative [facility] Work Phone: Squamous epithelial cells de tection in urine sediment by light microscopyon 2022 Epithelial cells.squamous LM Ql (Urine sed) 0-5 SEEN /hpf 5-10 [facility] Work Phone: Urine blood detectionon 10-02 RBC Ql (U) Negative Negative [facility] Work Phone: RBC Ql (U) 0 SEEN /hpf 0-5 [facility] Work Phone: Urine clarityon 2022 Clarity (U) Sl. Cloudy Clear [facility] Work Phone: Urine color determinationon 2022 Color (U) Yellow Yellow [facility] Work Phone: Urine glucose detectionon Glucose Ql (U) Normal mg/dl Normal [facility] Work Phone: Urine leukocyte esterase det ection by dipstickon 2022 Leukocyte esterase Test strip Ql (U) 500 /ul Negative [facility] Work Phone: Urine pHon 2022 pH (U) 6.5 [pH] 5.0 - 8.0 [facility] Work Phone: Urine sediment bacteria coun t by microscopy (number/high power field)on 2022 Bacteria LM.HPF (Urine sed) [#/Area] 0 /[HPF] None Seen [facility] Work Phone: Urine specific gravity measu rementon 2022 Specific gravity (U) [Rel density] 1.015 1.002-1.030 [facility] Work Phone: Urobilinogen Auto test strip Ql (U)on 2022 Urobilinogen Ql (U) Normal mg/dl Normal [facility] Work Phone: Absolute lymphocyte counton 10-04-2022 Lymphocytes Auto (Unsp spec) [#/Vol] 1.96 10*3/uL 0.83-4.51 [facility] Work Phone: Basophil percentageon 2021 Basophils/100 WBC (Bld) 0.7 % 0-1 [facility] Work Phone: Bilirubin [Mass/Vol] 0.50 mg/dL 0.20-1.00 [facility] Work Phone: Comment on above: For patients on eltr ombopag therapy, use of Dimension [place] TBIL is not recommended. Chloride [Moles/Vol] 108 mmol/L 98-107 [facility] Work Phone: Eosinophils/100 WBC (Bld) 1.2 % 0-5 [facility] Work Phone: Glucose [Mass/Vol] 93 mg/dL 74-106 [facility] Work Phone: Neutrophils (Bld) [#/Vol] 5.4 10*3/uL 2.0-7.7 [facility] Work Phone: Neutrophils/100 WBC (Bld) 67.4 % 47-70 [facility] Work Phone: Potassium [Moles/Vol] 4.2 mmol/L 3.5-5.1 [facility] Work Phone: Protein [Mass/Vol] 7.7 g/dL 6.4-8.2 [facility] Work Phone: Sodium [Moles/Vol] 138 mmol/L 136-145 [facility] Work Phone: WBC (Bld) [#/Vol] 8.1 10*3/uL 4.4-11.0 [facility] Work Phone: Blood erythrocytes count (nu mber/volume)on 10-04-2022 RBC (Bld) [#/Vol] 4.79 10*6/uL 4.2-5.4 [facility] Work Phone: Blood hemoglobin measurement (mass/volume)on 10-04-2022 Hemoglobin (Bld) [Mass/Vol] 14.2 g/dL 12.0-15.0 [facility] Work Phone: Blood lymphocytes/100 leukoc yteson 10-04-2022 Lymphocytes/100 WBC (Bld) 24.3 % 19-41 [facility] Work Phone: Blood monocytes/100 leukocyt eson 10-04-2022 Monocytes/100 WBC (Bld) 6.2 % 0-10 [facility] Work Phone: Blood platelet mean volumeon 10-04-2022 Platelet mean volume (Bld) [Entitic vol] 10.0 fL 6.2-12.0 [facility] Work Phone: Determination of erythrocyte mean corpuscular volume (MCV)on 10-04-2022 MCV (RBC) [Entitic vol] 86.2 fL 81-99 [facility] Work Phone: Hematocrit Auto (Bld) [Volum e fraction]on 10-04-2022 Hematocrit (Bld) [Volume fraction] 41.3 % 37-47 [facility] Work Phone: Laboratory - Chemistry and C hemistry - challengeon 10-04-2022 ALP [Catalytic activity/Vol] 84 U/L 45-117 [facility] Work Phone: ALT [Catalytic activity/Vol] 106 U/L 13-56 [facility] Work Phone: CO2 [Moles/Vol] 24.0 mmol/L 21.0-32.0 [facility] Work Phone: Globulin (S) [Mass/Vol] 3.8 g/dL 2.2-4.2 [facility] Work Phone: Urea nitrogen/Creatinine [Mass ratio] 10.7 mg/mg 10-20 [facility] Work Phone: Laboratory - Hematology and Cell countson 10-04-2022 Erythrocyte distribution width (RBC) [Entitic vol] 47.8 fL 35.1-43.9 [facility] Work Phone: Erythrocyte distribution width (RBC) [Ratio] 15.1 % 11.6-14.6 [facility] Work Phone: Immature granulocytes/100 WBC (Bld) 0.200 % 0.0-0.9 [facility] Work Phone: Comment on above: IG% - Immature Granu locytes (promyelocytes, myelocytes and metamyelocytes) > 1% indicates that a LEFT SHIFT is Present. MCH (RBC) [Entitic mass] 29.6 pg 27.0-32.0 [facility] Work Phone: Nucleated RBC/100 WBC (Bld) [Ratio] 0 % 0-5 [facility] Work Phone: MCHC Auto (RBC) [Mass/Vol]on 10-04-2022 MCHC (RBC) [Mass/Vol] 34.4 g/dL 32-36 [facility] [facility] Work Phone: No Panel Informationon 10-04 Estimated GFR (MDRD) Amer 84 mL/min >60 [facility] Work Phone: Comment on above: GFR Calc Estimated GFR (MDRD) Non-Af Amer 69 mL/min >60 [facility] Work Phone: Comment on above: Non- GFR Calc Platelets bldon 10-04-2022 Platelets (Bld) [#/Vol] 405 10*3/uL 150-450 [facility] Work Phone: Serum or plasma albumin chet urement (mass/volume)on 10-04-2022 Albumin [Mass/Vol] 3.9 g/dL 3.2-5.0 [facility] Work Phone: Serum or plasma albumin/glob ulin mass ratioon 10-04-2022 Albumin/Globulin [Mass ratio] 1.0 {ratio} 0.9-2.4 [facility] Work Phone: Serum or plasma calcium chet urement (mass/volume)on 10-04-2022 Calcium [Mass/Vol] 9.2 mg/dL 8.5-10.1 [facility] Work Phone: Serum or plasma creatinine m easurement (mass/volume)on 10-04-2022 Creatinine [Mass/Vol] 1.03 mg/dL 0.55-1.02 [facility] Work Phone: Comment on above: The validity of the calculated GFR & GFRAA in patients over 70 years has not been determined. Clinical correlation is essential. Serum or plasma urea nitroge n measurement (mass/volume)on 10-04-2022 Urea nitrogen [Mass/Vol] 11 mg/dL 7-18 [facility] Work Phone: Thin prep Papanicolaou smear with manual screeningon 10-04-2022 Thin prep Papanicolaou smear with manual screening 29 U/L 15-37 [facility] Work Phone: Thin prep Papanicolaou smear with manual screening 6 5-15 [facility] Work Phone: [phone] Absolute lymphocyte counton 09-24-2022 Lymphocytes Auto (Unsp spec) [#/Vol] 0.92 10*3/uL 0.83-4.51 [facility] Work Phone: Basophil percentageon 2021 Basophils/100 WBC (Bld) 0.1 % 0-1 [facility] Work Phone: Bilirubin [Mass/Vol] 0.70 mg/dL 0.20-1.00 [facility] Work Phone: Comment on above: For patients on eltr ombopag therapy, use of Dimension [place] TBIL is not recommended. Chloride [Moles/Vol] 107 mmol/L 98-107 [facility] Work Phone: Eosinophils/100 WBC (Bld) 0.0 % 0-5 [facility] Work Phone: Glucose [Mass/Vol] 125 mg/dL 74-106 [facility] Work Phone: Comment on above: Fasting Glucose resu lt from 100 to 125 mg/dL suggests IMPAIRED HOMEOSTASIS per A.D.A. criteria. Neutrophils (Bld) [#/Vol] 13.7 10*3/uL 2.0-7.7 [facility] Work Phone: Neutrophils/100 WBC (Bld) 88.9 % 47-70 [facility] Work Phone: Potassium [Moles/Vol] 4.0 mmol/L 3.5-5.1 [facility] Work Phone: Protein [Mass/Vol] 7.1 g/dL 6.4-8.2 [facility]: Sodium [Moles/Vol] 138 mmol/L 136-145 [facility]: WBC (Bld) [#/Vol] 15.4 10*3/uL 4.4-11.0 [facility]: Blood erythrocytes count (nu mber/volume)on 09-24-2022 RBC (Bld) [#/Vol] 4.67 10*6/uL 4.2-5.4 [facility] Work Phone: [phone] Blood hemoglobin measurement (mass/volume)on 09-24-2022 Hemoglobin (Bld) [Mass/Vol] 13.6 g/dL 12.0-15.0 [facility] Work Phone: Blood lymphocytes/100 leukoc yteson 09-24-2022 Lymphocytes/100 WBC (Bld) 6.0 % 19-41 [facility] Work Phone: Blood monocytes/100 leukocyt eson 09-24-2022 Monocytes/100 WBC (Bld) 4.5 % 0-10 [facility] Work Phone: Blood platelet mean volumeon 09-24-2022 Platelet mean volume (Bld) [Entitic vol] 10.4 fL 6.2-12.0 [facility] Work Phone: Determination of erythrocyte mean corpuscular volume (MCV)on 09-24-2022 MCV (RBC) [Entitic vol] 85.9 fL 81-99 [facility] Work Phone: Hematocrit Auto (Bld) [Volum e fraction]on 09-24-2022 Hematocrit (Bld) [Volume fraction] 40.1 % 37-47 [facility] Work Phone: Laboratory - Chemistry and C hemistry - challengeon 09-24-2022 ALP [Catalytic activity/Vol] 71 U/L 45-117 [facility] Work Phone: ALT [Catalytic activity/Vol] 138 U/L 13-56 [facility] Work Phone: CO2 [Moles/Vol] 24.0 mmol/L 21.0-32.0 [facility] Work Phone: Globulin (S) [Mass/Vol] 3.6 g/dL 2.2-4.2 [facility] Work Phone: Urea nitrogen/Creatinine [Mass ratio] 11.1 mg/mg 10-20 [facility] Work Phone: Laboratory - Hematology and Cell countson 09-24-2022 Erythrocyte distribution width (RBC) [Entitic vol] 50.4 fL 35.1-43.9 [facility] Work Phone: Erythrocyte distribution width (RBC) [Ratio] 15.9 % 11.6-14.6 [facility] Work Phone: Immature granulocytes/100 WBC (Bld) 0.500 % 0.0-0.9 [facility] Work Phone: Comment on above: IG% - Immature Granu locytes (promyelocytes, myelocytes and metamyelocytes) > 1% indicates that a LEFT SHIFT is Present. MCH (RBC) [Entitic mass] 29.1 pg 27.0-32.0 [facility] Work Phone: Nucleated RBC/100 WBC (Bld) [Ratio] 0 % 0-5 [facility] Work Phone: MCHC Auto (RBC) [Mass/Vol]on 09-24-2022 MCHC (RBC) [Mass/Vol] 33.9 g/dL 32-36 [facility] Work Phone: No Panel Informationon 09-24 Estimated Creatinine Clearance Calc 97.23 ml/min [facility] Work Phone: Estimated GFR (MDRD) Amer 98 mL/min >60 [facility] Work Phone: Comment on above: GFR Calc Estimated GFR (MDRD) Non-Af Amer 81 mL/min >60 [facility] Work Phone: Comment on above: Non- GFR Calc Platelets bldon 09-24-2022 Platelets (Bld) [#/Vol] 430 10*3/uL 150-450 [facility] Work Phone: Serum or plasma albumin chet urement (mass/volume)on 09-24-2022 Albumin [Mass/Vol] 3.5 g/dL 3.2-5.0 [facility] Work Phone: Serum or plasma albumin/glob ulin mass ratioon 09-24-2022 Albumin/Globulin [Mass ratio] 1.0 {ratio} 0.9-2.4 [facility] Work Phone: Serum or plasma calcium chet urement (mass/volume)on 09-24-2022 Calcium [Mass/Vol] 8.3 mg/dL 8.5-10.1 [facility] Work Phone: Serum or plasma creatinine m easurement (mass/volume)on 09-24-2022 Creatinine [Mass/Vol] 0.90 mg/dL 0.55-1.02 [facility] Work Phone: Comment on above: The validity of the calculated GFR & GFRAA in patients over 70 years has not been determined. Clinical correlation is essential. Serum or plasma urea nitroge n measurement (mass/volume)on 09-24-2022 Urea nitrogen [Mass/Vol] 10 mg/dL 7-18 [facility] Work Phone: Thin prep Papanicolaou smear with manual screeningon 09-24-2022 Thin prep Papanicolaou smear with manual screening 57 U/L 15-37 [facility] Work Phone: Thin prep Papanicolaou smear with manual screening 7 5-15 [facility] Work Phone: Absolute lymphocyte counton 09-23-2022 Lymphocytes Auto (Unsp spec) [#/Vol] 2.59 10*3/uL 0.83-4.51 [facility] Work Phone: Basophil percentageon 2021 Bilirubin [Mass/Vol] 0.40 mg/dL 0.20-1.00 [facility] Work Phone: [phone] Comment on above: For patients on eltr ombopag therapy, use of Dimension [place] TBIL is not recommended. Chloride [Moles/Vol] 104 mmol/L 98-107 [facility] Work Phone: Glucose [Mass/Vol] 110 mg/dL 74-106 [facility] Work Phone: Comment on above: Fasting Glucose resu lt from 100 to 125 mg/dL suggests IMPAIRED HOMEOSTASIS per A.D.A. criteria. Potassium [Moles/Vol] 3.8 mmol/L 3.5-5.1 [facility] Work Phone: Comment on above: Slight Hemolysis, Re sult may be falsely increased. Protein [Mass/Vol] 7.8 g/dL 6.4-8.2 [facility] Work Phone: Sodium [Moles/Vol] 140 mmol/L 136-145 [facility] Work Phone: Basophil percentage 0-5 SEEN /hpf 0-5 [facility] Work Phone: Basophils/100 WBC (Bld) 0.5 % 0-1 [facility] Work Phone: Eosinophils/100 WBC (Bld) 2.1 % 0-5 [facility] Work Phone: Neutrophils (Bld) [#/Vol] 7.3 10*3/uL 2.0-7.7 [facility] Work Phone: Neutrophils/100 WBC (Bld) 66.4 % 47-70 [facility] Work Phone: [phone] WBC (Bld) [#/Vol] 11.0 10*3/uL 4.4-11.0 [facility] Work Phone: Beta hCG serum qualon 2021 Beta HCG ( test) Ql Negative [facility] Work Phone: Bilirubin Test strip Ql (U)o n 09-23-2022 Bilirubin Ql (U) Negative Negative [facility] Work Phone: Blood erythrocytes count (nu mber/volume)on 09-23-2022 RBC (Bld) [#/Vol] 4.69 10*6/uL 4.2-5.4 [facility] Work Phone: Blood hemoglobin measurement (mass/volume)on 09-23-2022 Hemoglobin (Bld) [Mass/Vol] 13.3 g/dL 12.0-15.0 [facility] Work Phone: Blood lymphocytes/100 leukoc yteson 09-23-2022 Lymphocytes/100 WBC (Bld) 23.6 % 19-41 [facility] Work Phone: Blood monocytes/100 leukocyt eson 09-23-2022 Monocytes/100 WBC (Bld) 7.0 % 0-10 [facility] Work Phone: Blood platelet mean volumeon 09-23-2022 Platelet mean volume (Bld) [Entitic vol] 11.0 fL 6.2-12.0 [facility] Work Phone: Determination of erythrocyte mean corpuscular volume (MCV)on 09-23-2022 MCV (RBC) [Entitic vol] 86.8 fL 81-99 [facility] Work Phone: Direct bilirubinon 2 Bilirubin.direct [Mass/Vol] 0.14 mg/dL 0.00-0.30 [facility] Work Phone: Hematocrit Auto (Bld) [Volum e fraction]on 09-23-2022 Hematocrit (Bld) [Volume fraction] 40.7 % 37-47 [facility] Work Phone: Ketones Test strip Ql (U)on 09-23-2022 Ketones Ql (U) Negative Negative [facility] Work Phone: Laboratory - Chemistry and C hemistry - challengeon 09-23-2022 ALP [Catalytic activity/Vol] 88 U/L 45-117 [facility] Work Phone: ALT [Catalytic activity/Vol] 104 U/L 13-56 [facility] Work Phone: CO2 [Moles/Vol] 28.0 mmol/L 21.0-32.0 [facility] Work Phone: Globulin (S) [Mass/Vol] 3.8 g/dL 2.2-4.2 [facility] Work Phone: Lipase [Catalytic activity/Vol] 259 U/L 73-393 [facility] Work Phone: Urea nitrogen/Creatinine [Mass ratio] 11.8 mg/mg 10-20 [facility] Work Phone: HCG ( test) Ql (U) Negative [facility] Work Phone: Comment on above: Very dilute urine sp ecimens, as indicated by a low specificgravity, may not contain sales representative womens health levels of hCG. If is still suspected, a first morning urinespecimen should be collected 48 hours later and tested. Laboratory - Hematology and Cell countson 09-23-2022 Erythrocyte distribution width (RBC) [Entitic vol] 49.9 fL 35.1-43.9 [facility] Work Phone: Erythrocyte distribution width (RBC) [Ratio] 15.8 % 11.6-14.6 [facility] Work Phone: Immature granulocytes/100 WBC (Bld) 0.400 % 0.0-0.9 [facility] Work Phone: Comment on above: IG% - Immature Granu locytes (promyelocytes, myelocytes and metamyelocytes) > 1% indicates that a LEFT SHIFT is Present. MCH (RBC) [Entitic mass] 28.4 pg 27.0-32.0 [facility] Work Phone: Nucleated RBC/100 WBC (Bld) [Ratio] 0 % 0-5 [facility] Work Phone: MCHC Auto (RBC) [Mass/Vol]on 09-23-2022 MCHC (RBC) [Mass/Vol] 32.7 g/dL 32-36 [facility] Work Phone: Mucus LM Ql (Urine sed)on Mucus Ql (Urine sed) 0 SEEN /hpf [facility] Work Phone: Nitrite Test strip Ql (U)on 09-23-2022 Nitrite Ql (U) Negative Negative [facility] Work Phone: No Panel Informationon 09-23 Estimated Creatinine Clearance Calc 85.79 ml/min [facility] Work Phone: Estimated GFR (MDRD) Amer 85 mL/min >60 [facility] Work Phone: Comment on above: GFR Calc Estimated GFR (MDRD) Non-Af Amer 70 mL/min >60 [facility] Work Phone: Comment on above: Non- GFR Calc Troponin I High Sensitivity 4 pg/mL 3.0-54.0 [facility] Work Phone: Comment on above: Please Note: New Tg t Units and Gender Specific Reference Ranges. For more information see Policy Stat Procedure [place] High Sensitivity Troponin (TNIH) and attachments. Platelets bldon 09-23-2022 Platelets (Bld) [#/Vol] 437 10*3/uL 150-450 [facility] Work Phone: Protein Test strip Ql (U)on 09-23-2022 Protein Ql (U) Negative Negative [facility] Work Phone: Serum or plasma albumin chet urement (mass/volume)on 09-23-2022 Albumin [Mass/Vol] 4.0 g/dL 3.2-5.0 [facility] Work Phone: Serum or plasma calcium chet urement (mass/volume)on 09-23-2022 Calcium [Mass/Vol] 9.3 mg/dL 8.5-10.1 [facility] Work Phone: Serum or plasma creatinine m easurement (mass/volume)on 09-23-2022 Creatinine [Mass/Vol] 1.02 mg/dL 0.55-1.02 [facility] Work Phone: Comment on above: The validity of the calculated GFR & GFRAA in patients over 70 years has not been determined. Clinical correlation is essential. Serum or plasma urea nitroge n measurement (mass/volume)on 09-23-2022 Urea nitrogen [Mass/Vol] 12 mg/dL 7-18 [facility] Work Phone: Squamous epithelial cells de tection in urine sediment by light microscopyon 09-23-2022 Epithelial cells.squamous LM Ql (Urine sed) 0-5 SEEN /hpf 5-10 [facility] Work Phone: Thin prep Papanicolaou smear with manual screeningon 09-23-2022 Thin prep Papanicolaou smear with manual screening 40 U/L 15-37 [facility] Work Phone: Comment on above: Slight Hemolysis, Re sult may be falsely increased. Thin prep Papanicolaou smear with manual screening 8 5-15 [facility] Work Phone: Urine blood detectionon 09-02 RBC Ql (U) Negative Negative [facility] Work Phone: RBC Ql (U) 0 SEEN /hpf 0-5 [facility] Work Phone: Urine clarityon 09-23-2022 Clarity (U) Clear Clear [facility] Work Phone: Urine color determinationon 09-23-2022 Color (U) Yellow Yellow [facility] Work Phone: Urine glucose detectionon Glucose Ql (U) Normal mg/dl Normal [facility] Work Phone: Urine leukocyte esterase det ection by dipstickon 09-23-2022 Leukocyte esterase Test strip Ql (U) 25 /ul Negative [facility] Work Phone: Urine pHon 09-23-2022 pH (U) 7.0 [pH] 5.0 - 8.0 [facility] Work Phone: Urine sediment bacteria coun t by microscopy (number/high power field)on 09-23-2022 Bacteria LM.HPF (Urine sed) [#/Area] 1 /[HPF] None Seen [facility] Work Phone: Urine specific gravity measu rementon 09-23-2022 Specific gravity (U) [Rel density] 1.015 1.002-1.030 [facility] Work Phone: Urobilinogen Auto test strip Ql (U)on 09-23-2022 Urobilinogen Ql (U) Normal mg/dl Normal [facility] Work Phone: Absolute lymphocyte counton 03-12-2022 Lymphocytes Auto (Unsp spec) [#/Vol] 1.24 10*3/uL 0.83-4.51 [facility] Work Phone: Basophil percentageon 2021 Basophils/100 WBC (Bld) 0.2 % 0-1 [facility] Work Phone: Eosinophils/100 WBC (Bld) 0.6 % 0-5 [facility] Work Phone: Neutrophils (Bld) [#/Vol] 6.5 10*3/uL 2.0-7.7 [facility] Work Phone: Neutrophils/100 WBC (Bld) 79.4 % 47-70 [facility] Work Phone: WBC (Bld) [#/Vol] 8.2 10*3/uL 4.4-11.0 [facility] Work Phone: Blood erythrocytes count (nu mber/volume)on 03-12-2022 RBC (Bld) [#/Vol] 3.94 10*6/uL 4.2-5.4 [facility] Work Phone: Blood hemoglobin measurement (mass/volume)on 03-12-2022 Hemoglobin (Bld) [Mass/Vol] 12.3 g/dL 12.0-15.0 [facility] Work Phone: [phone] Blood lymphocytes/100 leukoc yteson 03-12-2022 Lymphocytes/100 WBC (Bld) 15.0 % 19-41 [facility] Work Phone: Blood monocytes/100 leukocyt eson 03-12-2022 Monocytes/100 WBC (Bld) 4.4 % 0-10 [facility] Work Phone: Blood platelet mean volumeon 03-12-2022 Platelet mean volume (Bld) [Entitic vol] 10.9 fL 6.2-12.0 [facility] Work Phone: Determination of erythrocyte mean corpuscular volume (MCV)on 03-12-2022 MCV (RBC) [Entitic vol] 88.3 fL 81-99 [facility] Work Phone: Hematocrit Auto (Bld) [Volum e fraction]on 03-12-2022 Hematocrit (Bld) [Volume fraction] 34.8 % 37-47 [facility] Work Phone: Laboratory - Hematology and Cell countson 03-12-2022 Erythrocyte distribution width (RBC) [Entitic vol] 43.7 fL 35.1-43.9 [facility] Work Phone: Erythrocyte distribution width (RBC) [Ratio] 13.4 % 11.6-14.6 [facility] Work Phone: Immature granulocytes/100 WBC (Bld) 0.400 % 0.0-0.9 [facility] Work Phone: Comment on above: IG% - Immature Granu locytes (promyelocytes, myelocytes and metamyelocytes) > 1% indicates that a LEFT SHIFT is Present. MCH (RBC) [Entitic mass] 31.2 pg 27.0-32.0 [facility] Work Phone: Nucleated RBC/100 WBC (Bld) [Ratio] 0 % 0-5 [facility] Work Phone: MCHC Auto (RBC) [Mass/Vol]on 03-12-2022 MCHC (RBC) [Mass/Vol] 35.3 g/dL 32-36 [facility] Work [facility]: Platelets bldon 03-12-2022 Platelets (Bld) [#/Vol] 270 10*3/uL 150-450 [facility] Work Phone: No Panel Informationon 03-06 Vaginal Amniotic Fluid Detection Negative Negative [facility] Work Phone: Comment on above: Amniotic fluid not p resent indicates No Rupture of FetalMembranes at time of specimen collection. No Panel Informationon 02-23 Vaginal Amniotic Fluid Detection Negative Negative [facility] Work Phone: Comment on above: Amniotic fluid not p resent indicates No Rupture of FetalMembranes at time of specimen collection. No Panel Informationon 02-19 Group B Streptococcus Culture Streptococcus agalactiae (B) [facility] Work Phone: Basophil percentageon 2021 Bilirubin [Mass/Vol] 0.30 mg/dL 0.20-1.00 [facility] Work Phone: Comment on above: For patients on eltr ombopag therapy, use of Dimension [place] TBIL is not recommended. Chloride [Moles/Vol] 110 mmol/L 98-107 [facility] Work Phone: Glucose [Mass/Vol] 101 mg/dL 74-106 [facility] Work Phone: Comment on above: Fasting Glucose resu lt from 100 to 125 mg/dL suggests IMPAIRED HOMEOSTASIS per A.D.A. criteria. Potassium [Moles/Vol] 3.4 mmol/L 3.5-5.1 [facility] Work Phone: Protein [Mass/Vol] 6.4 g/dL 6.4-8.2 [facility] Work Phone: Sodium [Moles/Vol] 139 mmol/L 136-145 [facility] Work Phone: WBC (Bld) [#/Vol] 9.7 10*3/uL 4.4-11.0 [facility] Work Phone: Blood erythrocytes count (nu mber/volume)on 01-25-2022 RBC (Bld) [#/Vol] 3.77 10*6/uL 4.2-5.4 [facility] Work Phone: Blood hemoglobin measurement (mass/volume)on 01-25-2022 Hemoglobin (Bld) [Mass/Vol] 11.6 g/dL 12.0-15.0 [facility] Work Phone: Blood platelet mean volumeon 01-25-2022 Platelet mean volume (Bld) [Entitic vol] 10.5 fL 6.2-12.0 [facility] Work Phone: Determination of erythrocyte mean corpuscular volume (MCV)on 01-25-2022 MCV (RBC) [Entitic vol] 90.2 fL 81-99 [facility] Work Phone: Hematocrit Auto (Bld) [Volum e fraction]on 01-25-2022 Hematocrit (Bld) [Volume fraction] 34.0 % 37-47 [facility] Work Phone: Laboratory - Chemistry and C hemistry - challengeon 01-25-2022 ALP [Catalytic activity/Vol] 87 U/L 45-117 [facility] Work Phone: ALT [Catalytic activity/Vol] 25 U/L 13-56 [facility] Work Phone: CO2 [Moles/Vol] 23.0 mmol/L 21.0-32.0 [facility] Work Phone: Globulin (S) [Mass/Vol] 3.7 g/dL 2.2-4.2 [facility] Work Phone: Urea nitrogen/Creatinine [Mass ratio] 7.1 mg/mg 10-20 [facility] Work Phone: Laboratory - Hematology and Cell countson 01-25-2022 Erythrocyte distribution width (RBC) [Entitic vol] 44.4 fL 35.1-43.9 [facility] Work Phone: Erythrocyte distribution width (RBC) [Ratio] 13.6 % 11.6-14.6 [facility] Work Phone: MCH (RBC) [Entitic mass] 30.8 pg 27.0-32.0 [facility] Work Phone: MCHC Auto (RBC) [Mass/Vol]on 01-25-2022 MCHC (RBC) [Mass/Vol] 34.1 g/dL 32-36 [facility] Work Phone: No Panel Informationon 01-25 Estimated GFR (MDRD) Amer 168 mL/min >60 [facility] Work Phone: Comment on above: GFR Calc Estimated GFR (MDRD) Non-Af Amer 139 mL/min >60 [facility] Work Phone: Comment on above: Non- GFR Calc Platelets bldon 01-25-2022 Platelets (Bld) [#/Vol] 281 10*3/uL 150-450 [facility] Work Phone: Serum or plasma albumin chet urement (mass/volume)on 01-25-2022 Albumin [Mass/Vol] 2.7 g/dL 3.2-5.0 [facility] Work Phone: Serum or plasma albumin/glob ulin mass ratioon 01-25-2022 Albumin/Globulin [Mass ratio] 0.7 {ratio} 0.9-2.4 [facility] Work Phone: Serum or plasma calcium chet urement (mass/volume)on 01-25-2022 Calcium [Mass/Vol] 8.7 mg/dL 8.5-10.1 [facility] Work Phone: Serum or plasma creatinine m easurement (mass/volume)on 01-25-2022 Creatinine [Mass/Vol] 0.57 mg/dL 0.55-1.02 [facility] Work Phone: Comment on above: The validity of the calculated GFR & GFRAA in patients over 70 years has not been determined. Clinical correlation is essential. Serum or plasma urea nitroge n measurement (mass/volume)on 01-25-2022 Urea nitrogen [Mass/Vol] 4 mg/dL 7-18 [facility] Work Phone: Thin prep Papanicolaou smear with manual screeningon 01-25-2022 Thin prep Papanicolaou smear with manual screening 8 U/L 15-37 [facility] Work Phone: Thin prep Papanicolaou smear with manual screening 6 5-15 [facility] Work Phone: Thin prep Papanicolaou smear with manual screening 150 U/L 84-246 [facility] Work Phone: Basophil percentageon 2021 WBC (Bld) [#/Vol] 12.0 10*3/uL 4.4-11.0 [facility] Work Phone: Blood erythrocytes count (nu mber/volume)on 01-18-2022 RBC (Bld) [#/Vol] 3.93 10*6/uL 4.2-5.4 [facility] Work Phone: Blood hemoglobin measurement (mass/volume)on 01-18-2022 Hemoglobin (Bld) [Mass/Vol] 12.5 g/dL 12.0-15.0 [facility] Work Phone: Blood platelet mean volumeon 01-18-2022 Platelet mean volume (Bld) [Entitic vol] 10.2 fL 6.2-12.0 [facility] Work Phone: Determination of erythrocyte mean corpuscular volume (MCV)on 01-18-2022 MCV (RBC) [Entitic vol] 90.6 fL 81-99 [facility] Work Phone: Hematocrit Auto (Bld) [Volum e fraction]on 01-18-2022 Hematocrit (Bld) [Volume fraction] 35.6 % 37-47 [facility] Work Phone: Laboratory - Chemistry and C hemistry - challengeon 01-18-2022 ALT [Catalytic activity/Vol] 26 U/L 13-56 [facility] Work Phone: Laboratory - Hematology and Cell countson 01-18-2022 Erythrocyte distribution width (RBC) [Entitic vol] 43.7 fL 35.1-43.9 [facility] Work Phone: Erythrocyte distribution width (RBC) [Ratio] 13.2 % 11.6-14.6 [facility] Work Phone: MCH (RBC) [Entitic mass] 31.8 pg 27.0-32.0 [facility] Work Phone: MCHC Auto (RBC) [Mass/Vol]on 01-18-2022 MCHC (RBC) [Mass/Vol] 35.1 g/dL 32-36 [facility] Work Phone: No Panel Informationon 01-18 Estimated Creatinine Clearance Calc 178.59 ml/min [facility] Work Phone: Estimated GFR (MDRD) Amer 200 mL/min >60 [facility] Work Phone: Comment on above: GFR Calc Estimated GFR (MDRD) Non-Af Amer 165 mL/min >60 [facility] Work Phone: Comment on above: Non- GFR Calc Platelets bldon 01-18-2022 Platelets (Bld) [#/Vol] 311 10*3/uL 150-450 [facility] Work Phone: Serum or plasma creatinine m easurement (mass/volume)on 01-18-2022 Creatinine [Mass/Vol] 0.49 mg/dL 0.55-1.02 [facility] Work Phone: Comment on above: The validity of the calculated GFR & GFRAA in patients over 70 years has not been determined. Clinical correlation is essential. Serum or plasma uric acid me asurement (mass/volume)on 01-18-2022 Urate [Mass/Vol] 4.7 mg/dL 2.6-6.0 [facility] Work Phone: Comment on above: The drugs N-Acetylcy steine and Metamizole may falsely depress this assay. Thin prep Papanicolaou smear with manual screeningon 01-18-2022 Thin prep Papanicolaou smear with manual screening 9 U/L 15-37 [facility] Work Phone: Urine creatinine measurement (mass/volume)on 01-18-2022 Creatinine (U) [Mass/Vol] 44.20 mg/dL NO RANGE EST. [facility] Work Phone: Urine protein measurement (m ass/volume)on 01-18-2022 Protein (U) [Mass/Vol] 13.2 mg/dL 0.0-11.8 [facility] Work Phone: Urine protein/creatinine mas s ratioon 01-18-2022 Protein/Creatinine (U) [Mass ratio] 299 mg/g CRE 0-200 [facility] Work Phone: No Panel Informationon 12-28 Vaginal Amniotic Fluid Detection Negative Negative [facility] Work Phone: Comment on above: Amniotic fluid not p resent indicates No Rupture of FetalMembranes at time of specimen collection. Basophil percentageon 2021 Bilirubin [Mass/Vol] 0.40 mg/dL 0.20-1.00 [facility] Work Phone: Comment on above: For patients on eltr ombopag therapy, use of Dimension [place] TBIL is not recommended. Chloride [Moles/Vol] 107 mmol/L 98-107 [facility] Work Phone: Glucose [Mass/Vol] 122 mg/dL 74-106 [facility] Work Phone: Comment on above: Fasting Glucose resu lt from 100 to 125 mg/dL suggests IMPAIRED HOMEOSTASIS per A.D.A. criteria. Potassium [Moles/Vol] 3.3 mmol/L 3.5-5.1 [facility] Work Phone: Protein [Mass/Vol] 6.8 g/dL 6.4-8.2 [facility] Work Phone: Sodium [Moles/Vol] 139 mmol/L 136-145 [facility] Work Phone: WBC (Bld) [#/Vol] 10.9 10*3/uL 4.4-11.0 [facility] Work Phone: Blood erythrocytes count (nu mber/volume)on 12-26-2021 RBC (Bld) [#/Vol] 3.99 10*6/uL 4.2-5.4 [facility] Work Phone: Blood hemoglobin measurement (mass/volume)on 12-26-2021 Hemoglobin (Bld) [Mass/Vol] 12.4 g/dL 12.0-15.0 [facility] Work Phone: Blood platelet mean volumeon 12-26-2021 Platelet mean volume (Bld) [Entitic vol] 10.3 fL 6.2-12.0 [facility] Work Phone: Determination of erythrocyte mean corpuscular volume (MCV)on 12-26-2021 MCV (RBC) [Entitic vol] 91.7 fL 81-99 [facility] Work Phone: Gestational diabetes screen 1-hour screen with 50g oral glucose loadon 12-26-2021 Glucose 1 Hr post 50 g glucose PO [Mass/Vol] 122 mg/dL 70-140 [facility] Work Phone: Hematocrit Auto (Bld) [Volum e fraction]on 12-26-2021 Hematocrit (Bld) [Volume fraction] 36.6 % 37-47 [facility] Work Phone: Laboratory - Chemistry and C hemistry - challengeon 12-26-2021 ALP [Catalytic activity/Vol] 74 U/L 45-117 [facility] Work Phone: ALT [Catalytic activity/Vol] 22 U/L 13-56 [facility] Work Phone: CO2 [Moles/Vol] 27.0 mmol/L 21.0-32.0 [facility] Work Phone: Globulin (S) [Mass/Vol] 3.9 g/dL 2.2-4.2 [facility] Work Phone: Urea nitrogen/Creatinine [Mass ratio] 10.0 mg/mg 10-20 [facility] Work Phone: Laboratory - Hematology and Cell countson 12-26-2021 Erythrocyte distribution width (RBC) [Entitic vol] 45.4 fL 35.1-43.9 [facility] Work Phone: Erythrocyte distribution width (RBC) [Ratio] 13.5 % 11.6-14.6 [facility] Work Phone: MCH (RBC) [Entitic mass] 31.1 pg 27.0-32.0 [facility] Work Phone: MCHC Auto (RBC) [Mass/Vol]on 12-26-2021 MCHC (RBC) [Mass/Vol] 33.9 g/dL 32-36 [facility] Work Phone: No Panel Informationon 12-26 Estimated GFR (MDRD) Amer 157 mL/min >60 [facility] Work Phone: Comment on above: GFR Calc Estimated GFR (MDRD) Non-Af Amer 130 mL/min >60 [facility] Work Phone: Comment on above: Non- GFR Calc Miscellaneous Test See comment [facility]: Comment on above: TEST RESULT UNITS RE F INTERVALbile Acids 1.2 umol/L 0.0 - 10.0 [facility] OR[facility]INAL REPORT ON FILE IN LAB CONTAINS ADDITIONAL TEST SITE INFORMATION. Platelets bldon 12-26-2021 Platelets (Bld) [#/Vol] 345 10*3/uL 150-450 [facility] Work Phone: Serum or plasma albumin chet urement (mass/volume)on 12-26-2021 Albumin [Mass/Vol] 2.9 g/dL 3.2-5.0 [facility] Work Phone: Serum or plasma albumin/glob ulin mass ratioon 12-26-2021 Albumin/Globulin [Mass ratio] 0.7 {ratio} 0.9-2.4 [facility] Work Phone: Serum or plasma calcium chet urement (mass/volume)on 12-26-2021 Calcium [Mass/Vol] 8.9 mg/dL 8.5-10.1 [facility] Work Phone: Serum or plasma creatinine m easurement (mass/volume)on 12-26-2021 Creatinine [Mass/Vol] 0.60 mg/dL 0.55-1.02 [facility] Work Phone: Comment on above: The validity of the calculated GFR & GFRAA in patients over 70 years has not been determined. Clinical correlation is essential. Serum or plasma urea nitroge n measurement (mass/volume)on 12-26-2021 Urea nitrogen [Mass/Vol] 6 mg/dL 7-18 [facility] Work Phone: Thin prep Papanicolaou smear with manual screeningon 12-26-2021 Thin prep Papanicolaou smear with manual screening 8 U/L 15-37 [facility] Work Phone: Thin prep Papanicolaou smear with manual screening 5 5-15 [facility] Work Phone: Culture, urineon 11-19-2021 Bacteria identified Cx Nom (U) Positive [facility] Work Phone: EMERGENCY REPORTon 1 EMERGENCY REPORT [facility] EMERGENCY ROOM REPORT NAME ACCOUNT SEX AGE ADMIT DISCHARGE PT MED. RECORD# NUMBER DATE DATE TYPE YOKASTA PRETTY [id number] F 25 03/12/21 03/12/21 3 PATRICE [id number] ROOM: ER DATE OF : 1995 DICTATING PHYSICIAN: Colin Clements CHIEF COMPLAINT: Left lower quadrant abdominal pain. HISTORY OF PRESENT ILLNESS: She arrives by private vehicle with left lower quadrant abdominal pain of sudden onset. She reports that it is primarily in the left lower quadrant. It feels similar to when she had ovarian rupture, approximately 3 years ago in 2018. At that time, she did not require any surgical evaluation. She is arriving here now as her symptoms have persisted and have been present for approximately 2 hours, although it has been improving. She has had nausea without vomiting. No vaginal bleeding or discharge. No concerns of sexually transmitted infection. She is sexually active with one other male. She does not use protection on a daily basis. She has never been treated for STDs in the past, however. She does not believe that she is . However, she does have a known history of PCOS. No urinary symptoms. No vaginal bleeding or discharge. She further denies any constipation or diarrhea. No chest pain or shortness of breath. PAST MEDICAL HISTORY: Reviewed, PCOS, asthma, depression. PAST SURGICAL HISTORY: Tonsillectomy. SOCIAL HISTORY: Lives at home with . Smokes approximately 1/2 pack of cigarettes per day. Last menstrual period was last week. No positive test at home, however. PHYSICAL EXAMINATION: VITAL SIGNS: Blood pressure 162/58, heart rate 91, respirations 20, temperature 97.5, oxygen saturation 97% on room air. GENERAL: She does appear mildly uncomfortable. However, she is not in any acute respiratory distress. HEENT: Normal. LUNGS: Clear. ABDOMEN: Mildly tender in the left lower quadrant without rebound or guarding. She is pointing to a mass in the LUQ however I do not appreciate a mass. Pelvic exam was offered but declined. There is no rebound, rigidity or guarding. SKIN: Intact. EXTREMITIES: No acute pathology. DP and PT 2+ bilaterally. MEDICAL DECISION MAKING: This is a very pleasant overall concerning 25-year-old female with concerns above. Vital signs are normal. She is uncomfortable, hypertensive and tachycardic. Otherwise, no acute distress. IV was established. The patient was given symptomatic control. The education technician was called in to complete a transvaginal ultrasound to rule out ovarian torsion. The ultrasound returned Page 1 of 2 YOKASTA PRETTY Emergency Room Report YOKASTA CONTRERAS : 1995 showing no acute pathology. She is not . Her urinalysis showed no evidence of infection. Her labs are otherwise unremarkable. On repeat exam, she feels much better. There is a very low suspicion for other lower abdominal pathology. Given that she is very well appearing at this time, we will hold on CT abdomen and pelvis. DIAGNOSIS: 1. Abdominal pain. 2. Polycystic ovarian syndrome. 3. Hematuria. PLAN/DISPOSITION: At this time, she would like to be discharged and is comfortable with the plan of following up with the piece marker small arms that we provided. Her questions were sought and answered. Return precautions were discussed. Dictated By: Colin Clements DO 03/13/21 00:09 JOB #: [id number] Transcribed By: [email or web address] 03/13/21 12:48 Electronically signed by: DR. COLIN CLEMENTS DO 03/24/21 20:32 Page 2 of 2 YOKASTA PRETTY Emergency Room Report PATRICE Normal [facility] CT ABDOMEN/PELVIS Won 2020 CT ABDOMEN/PELVIS [place] [address] Patient: YOKASTA PRETTY Phone#: : 1995 Age: 25 Gender: F Pt. Type: Account: [id number] Location: [facility] Ordering: [facility] Exam Date: 03/21/2021/13:14 Family Phys: Charge Code: [id number] Physician: Cottle Order #: [id number] DLP Dose#: 39.80 PROCEDURE: CT ABDOMEN/PELVIS WITH CONTRAST COMPARISON: None. INDICATIONS: Abdominal mass. TECHNIQUE: After obtaining the patient's consent, CT images were created with non-ionic intravenous contrast and oral contrast material. All CT scans at this facility use dose modulation, iterative reconstruction, and/or weight based dosing when appropriate to reduce radiation dose to as low as reasonably achievable. IV CONTRAST: Omnipaque 350,80ml TOTAL DOSE: 39.80 CTDIvol(mGy) FINDINGS: LIVER: Fatty changes of the liver are present. BILIARY: The gallbladder is contracted. PANCREAS: Normal. No lesion, fluid collection, ductal dilatation, or atrophy. SPLEEN: Normal. No enlargement or focal lesion. KIDNEYS: Normal. No mass, obstruction, or calcification. ADRENALS: Normal. No mass or enlargement. AORTA/VASCULAR: Normal. No aneurysm or dissection. RETROPERITONEUM: Normal. No mass or adenopathy. BOWEL/MESENTERY: Normal. No visible mass, obstruction, or bowel wall thickening. ABDOMINAL WALL: Normal. No mass or hernia. URINARY BLADDER: Normal. No visible focal wall thickening, lesion, or calculus. PELVIC NODES: Normal. No adenopathy. PELVIC ORGANS: There is trace free fluid in the pelvis. No visible mass. Pelvic organs appropriate for patient age. BONES: Normal. No bony lesion or fracture. LUNG BASES: Normal. No visible pulmonary or pleural disease. OTHER: Negative. Continued Report - Page 2 of 2 Patient: YOKASTA PRETTY Phone#: : 1995 Age: 25 Gender: F Pt. Type: Account: [id number] Location: [facility] Ordering: [facility] Exam Date: 03/21/2021/13:14 Family Phys: Charge Code: [id number] Physician: Cottle Order #: [id number] DLP Dose#: [id number] CONCLUSION: 1. Trace free fluid is present in the pelvis. 2. There is otherwise no evidence of acute abdominal or pelvic abnormality. Dictated by: Sylvia Leal MD on 03/21/2021 at 14:21 Approved by: Sylvia Leal MD on 03/21/2021 at 14:29 Normal [facility] CBC + DIFFon 03-13-2021 Baso # 0.10 x10EE3/UL Normal 0.00 - 0.10 [facility] Comment on above: Performed By: #### 2 33703 #### [facility],[address] [place] [address] 96226 Basophils/100 WBC (Bld) 0.9 % Normal 0.0 - 2.0 [facility] Comment on above: Performed By: #### 2 48707 #### [facility],[address] [place] [address] 03885 CBC + DIFF Normal [facility] Comment on above: Result Comment: CBC- COMPLETE BLOOD COUNT Performed By: #### 2 16158 #### [place] [address] EO # 0.30 x10EE3/UL Normal 0.00 - 0.50 [facility] Comment on above: Performed By: #### 2 44424 #### [place] [address] Eosinophils/100 WBC (Bld) 2.4 % Normal 0.0 - 7.0 [facility] Comment on above: Performed By: #### 2 19151 #### [place] [address] Erythrocyte distribution width (RBC) [Ratio] 12.7 % Normal 12.0 - 15.6 [facility] Comment on above: Performed By: #### 2 72608 #### [place] [address] Hematocrit (Bld) [Volume fraction] 42.0 % Normal 34.0 - 46.0 [facility] Comment on above: Performed By: #### 2 32217 #### [place] [address] Hemoglobin (Bld) [Mass/Vol] 14.6 g/dL Normal 12.0 - 16.0 [facility] Comment on above: Performed By: #### 2 63974 #### [place] [address] Lymph # 3.40 x10EE3/UL High 0.80 - 2.80 [facility] Comment on above: Performed By: #### 2 15538 #### [place] [address] Lymphocytes/100 WBC (Bld) 26.8 % Normal 20.0 - 45.0 [facility] Comment on above: Performed By: #### 2 24750 #### [place] [address] MANUAL DIFF N/A Normal [facility] Comment on above: Performed By: #### 2 36154 #### [facility],[address] [place] [address] MCH (RBC) [Entitic mass] 31 pg Normal 27 - 33 [facility] Comment on above: Performed By: #### 2 75899 #### [facility],[address] [place] [address] MCHC 35 X10 3 Normal 32 - 36 [facility] Comment on above: Performed By: #### 2 52281 #### [facility],[address] [place] [address] MCV (RBC) [Entitic vol] 88 fL Normal 80 - 99 [facility] Comment on above: Performed By: #### 2 17207 #### [facility],[address] [place] [address] [place] # 0.90 x10EE3/UL Normal 0.20 - 1.00 [facility] Comment on above: Performed By: #### 2 55728 #### [facility],[address] [place] [address] MONOS % 7.3 % Normal 0.0 - 10.0 [facility] Comment on above: Performed By: #### 2 53986 #### [facility],[address] [place] [address] Morphology Renny (Bld) [Interp] N/A Normal [facility] Comment on above: Result Comment: {CD] Performed By: #### 2 01737 #### [facility],[address] [place] [address] Neut # 8.00 x10EE3/UL High 1.50 - 7.10 [facility] Comment on above: Performed By: #### 2 43145 #### [facility],[address] [place] [address] Neutrophils/100 WBC (Bld) 62.6 % Normal 46.0 - 76.0 [facility] Comment on above: Performed By: #### 2 95549 #### [facility],[address] [place] [address] 41546 PLATELET 437 x10EE3/UL Normal 150 - 450 [facility] Comment on above: Performed By: #### 2 69799 #### [facility],[address] [place] [address] 87836 Platelet mean volume (Bld) [Entitic vol] 8.4 fL Normal 6.6 - 10.5 [facility] Comment on above: Result Comment: AUTO MATED DIFFERENTIAL Performed By: #### 2 76473 #### [facility],[address] [place], [place] [id number] RBC 4.76 x 10EE6/UL Normal 4.10 - 5.30 [facility] Comment on above: Performed By: #### 2 39554 #### [facility],[address] [place], [place] [id number] WBC 12.8 x 10EE3/UL High 4.5 - 10.8 [facility] Comment on above: Performed By: #### 2 04755 #### [facility],[address] [place] [address] 29370 CMP with eGFRon 03-13-2021 AGE 25 years Normal [facility] Comment on above: Performed By: #### 2 31802 #### [facility],[address] [place] [address] 23805 Albumin [Mass/Vol] 4.3 g/dL Normal 3.4 - 5.0 [facility] Comment on above: Performed By: #### 2 54763 #### [facility],[address] [place] [address] 87656 Albumin/Globulin [Mass ratio] 1.4 {ratio} Normal 0.9 - 1.6 [facility] Comment on above: Performed By: #### 2 56081 #### [facility],[address] [place] [address] 35185 ALK PHOS 72 U/L Normal 46 - 116 [facility] Comment on above: Performed By: #### 2 69668 #### [facility],[address] [place] [address] 37562 ALT [Catalytic activity/Vol] 60 U/L High 14 - 59 [facility] Comment on above: Performed By: #### 2 55002 #### [facility],[address] [place] [address] 20072 Anion gap [Moles/Vol] 15 mmol/L Normal 10 - 20 [facility] Comment on above: Performed By: #### 2 29722 #### [facility],[address] [place], [place] [id number] AST [Catalytic activity/Vol] 18 U/L Normal 13 - 39 [facility] Comment on above: Performed By: #### 2 88409 #### [facility],[address] [place] [address] 19437 B/C RATIO 14 ratio Normal 0 - 30 [facility] Comment on above: Performed By: #### 2 10193 #### [facility],[address] [place] [address] 67052 Bilirubin [Mass/Vol] 0.4 mg/dL Normal 0.2 - 1.0 [facility] Comment on above: Performed By: #### 2 99943 #### [facility],[address] [place] [address] 47685 Calcium [Mass/Vol] 9.3 mg/dL Normal 8.5 - 10.1 [facility] Comment on above: Performed By: #### 2 26030 #### [facility],[address] [place] [address] 94774 Chloride [Moles/Vol] 105 mmol/L Normal 98 - 107 [facility] Comment on above: Performed By: #### 2 35843 #### [facility],[address] [place] [address] 55725 CMP with eGFR Normal [facility] Comment on above: Result Comment: COMP REHENSIVE METABOLIC PANEL Performed By: #### 2 78230 #### [facility],[address] [place], [place] [id number] CO2 [Moles/Vol] 26.5 mmol/L Normal 21.0 - 32.0 [facility] Comment on above: Performed By: #### 2 54279 #### [facility],[address] [place] [address] 22060 Creatinine [Mass/Vol] 0.9 mg/dL Normal 0.5 - 1.0 [facility] Comment on above: Performed By: #### 2 17345 #### [facility],[address] [place] [address] GFR/1.73 sq M.predicted among non-blacks MDRD (S/P/Bld) [Vol rate/Area] mL/min/{1.73_m2} Normal 60 - 999 [facility] Comment on above: Performed By: #### 2 98407 #### [facility],[address] [place] [address] Result Comment: ACCO RDING TO THE NATIONAL KIDNEY DISEASE EDUCATION PROGRAM(NKDE), A NORMAL eGFR IS A VALUE GREATER THAN OR EQUAL TO 60 ML/MIN/1.73 SQ METERS. CHRONIC KIDNEY DISEASE: <60mL/MIN/1.73 SQ METERS KIDNEY FAILURE: <15mL/MIN/1.73 SQ METERS THIS TEST SHOULD ONLY BE USED FOR PATIENTS 18 YEARS OF AGE AND OLDER. Globulin (S) [Mass/Vol] 3.0 g/dL Normal 1.5 - 3.8 [facility] Comment on above: Performed By: #### 2 17214 #### [facility],[address] [place], [place] [id number] Glucose [Mass/Vol] 107 mg/dL High 74 - 106 [facility] Comment on above: Performed By: #### 2 12037 #### [facility],[address] [place] [address] 67483 Potassium [Moles/Vol] 3.7 mmol/L Normal 3.5 - 5.1 [facility] Comment on above: Performed By: #### 2 25074 #### [facility],[address] [place] [address] 43845 Protein [Mass/Vol] 7.3 g/dL Normal 6.4 - 8.2 [facility] Comment on above: Performed By: #### 2 93653 #### [facility],[address] [place] [address] 30353 Sodium [Moles/Vol] 143 mmol/L Normal 136 - 145 [facility] Comment on above: Performed By: #### 2 25299 #### [facility],[address] [place] [address] 63057 Urea nitrogen [Mass/Vol] 13 mg/dL Normal 7 - 18 [facility] Comment on above: Performed By: #### 2 52161 #### [facility],[address] [place] [address] 20883 PREG SERUM QUANTon HCG QUANTITATIVE 0 mIU/mL Normal 0 - 6 [facility] Comment on above: Result Comment: Refe dione Range: Male: <5 Female: Non: <5 1 - 7 days : 5 - 50 1 - 2 weeks: 50 - 500 2 - 3 weeks: 100 - 5000 3 - 4 weeks: 500 - 10,000 4 - 5 weeks: 1000 - 50,000 5 - 6 weeks: 10,000 - 100,000 6 - 8 weeks: 15,000 - 200,000 2 - 3 months: 10,000 - 100,000 2ND TRIMESTER 3000-50,000 3RD TRIMESTER 1000-50,000 Performed By: #### 2 94812 #### [facility],[address] [place] [address] 16243 URINALYSISon 03-13-2021 Amorphous 1+ Normal [facility] Comment on above: Performed By: #### 2 99256 #### [facility],[address] [place] [address] 76072 Bacteria 2+ Normal [facility] Comment on above: Performed By: #### 2 05468 #### [facility],[address] [place] [address] 97829 Bilirubin Ql (U) Negative Normal NORMAL: NEGATIVE [facility] Comment on above: Performed By: #### 2 03313 #### [facility],[address] [place] [address] 89349 Casts NONE Normal [facility] Comment on above: Performed By: #### 2 47122 #### [facility],[address] [place] [address] 98260 Clarity (U) clear Normal NORMAL: CLEAR [facility] Comment on above: Performed By: #### 2 07360 #### [facility],[address] [place] [address] 50586 Color (U) ro Normal NORMAL: YELLOW [facility] Comment on above: Performed By: #### 2 19674 #### [facility],[address] [place] [address] 22730 Crystals LM Nom (Urine sed) NONE Normal [facility] Comment on above: Performed By: #### 2 70352 #### [facility],[address] [place] [address] 48295 Epi Cells MANY Normal [facility] Comment on above: Performed By: #### 2 50782 #### [facility],[address] [place] [address] 28927 Glucose Ql (U) NORM Normal NORMAL: NORMAL [facility] Comment on above: Performed By: #### 2 23973 #### [facility],[address] [place] [address] 70414 Hemoglobin Ql (U) 10 Abnormal NORMAL: NEGATIVE [facility] Comment on above: Performed By: #### 2 [id number] #### [facility],[address] [place] [address] [id number] Ketone Negative Normal NORMAL: NEGATIVE [facility] Comment on above: Performed By: #### 2 [id number] #### [facility],[address] [place] [address] [id number] Leukocytes Negative Normal NORMAL: NEGATIVE [facility] Comment on above: Performed By: #### 2 [id number] #### [facility],[address] [place], [place] [id number] Mucous 1+ Normal [facility] Comment on above: Performed By: #### 2 [id number] #### [facility],[address] [place] [address] Nitrite Ql (U) Negative Normal NORMAL: NEGATIVE [facility] Comment on above: Performed By: #### 2 [id number] #### [facility],[address] [place] [address] pH (U) 6 [pH] Normal NORMAL: 5.0-8.0 [facility] Comment on above: Performed By: #### 2 [id number] #### [facility],[address] [place], [place] [id number] Protein Ql (U) Negative Normal NORMAL: NEGATIVE [facility] Comment on above: Performed By: #### 2 [id number] #### [facility],[address] [place] [address] [id number] Rbc 0-5 Normal 0-3/hpf [facility] Comment on above: Performed By: #### 2 [id number] #### [facility],[address] [place] [address] 60160 Sp [place] 1.025 Normal NORMAL: 1.010-1.030 [facility] Comment on above: Performed By: #### 2 [id number] #### [facility],[address] [place], [place] [id number] Specimen Type UNSPECIFIED Normal [facility] Comment on above: Performed By: #### 2 [id number] #### [facility],[address] [place], [place] [id number] Urinalysis dipstick W Reflex Microscopic panel (U) SEE BELOW Normal [facility] Comment on above: Result Comment: MICR OSCOPIC Performed By: #### 2 [id number] #### [facility],[address] [place] [address] 10722 Urobilinog NORM Normal NORMAL: NORMAL [facility] Comment on above: Performed By: #### 2 [id number] #### [facility],[address] [place] [address] 13972 Wbc NONE Normal 0-5/hpf [facility] Comment on above: Performed By: #### 2 [id number] #### [facility],[address] [place] [address] Yeast NONE Normal [facility] Comment on above: Performed By: #### 2 [id number] #### [facility],[address] [place] [address] PELVIC 03-13-2021 [place] [address] Patient: YOKASTA PRETTY Phone#: : [phone] Age: 25 Gender: F Pt. Type: ER Account: [id number] Location: [facility] Ordering: DR. COLIN CLEMENTS Exam Date: 03/12/2021/22:35 Family Phys: Charge Code: 296125 Physician: Cottle Order #: [id number] DLP Dose#: PROCEDURE: PELVIC ULTRASOUND, TRANSABDOMINAL ENDOVAGINAL COMPARISON: None. INDICATIONS: Left sided pain TECHNIQUE: Pelvic ultrasound using transabdominal and endovaginal technique. FINDINGS: UTERUS: Size is 6.3 x 2.3 x 3.6 cm with unremarkable appearance. Endometrial thickness is 5.7 mm. ADNEXAE: Normal bilateral appearance with no significant masses. Right ovary is 3.1 x 2.2 x 2.2 cm. Left ovary is 3.2 x 3.1 x 2.2 cm. CUL-DE-SAC: Normal. No fluid or mass. OTHER: Negative. CONCLUSION: No acute disease. Dictated by: Sylvia Leal MD on 03/13/2021 at 9:00 Approved by: Sylvia Leal MD on 03/13/2021 at 9:01 [facility] Progress Noteon 07-29-2017 [employer] Authentication Interface Message Text Patient ID: Yokasta Pretty is a 21 y.o. female. Her chief complaint(s)include: 21 YEAR WELL CHILD.Assessment:1. Routine general medical examination at a health care facility2. Autoimmune thyroiditis3. Acquired acanthosis nigricans4. Elevated liver enzymes5. Major depressive disorder, recurrent episode, moderate6. Unspecified episodic mood disorder7. Ruptured ovarian cystPlan:Yokasta was seen today for 21 year well child.Diagnoses and all orders for this visit:Routine general medical examination at a health care facility- Behavioral/Emotional Assessment w Score - PHQ-9Autoimmune thyroiditis- T4, free (Lab Collect); Future- TSH (Lab Collect); Future- TSH (Lab Collect)- T4, free (Lab Collect)Acquired acanthosis nigricans- Hemoglobin A1c (Lab Collect); Future- Hemoglobin A1c (Lab Collect)Elevated liver enzymes- Complete Blood Count with Diff (Lab Collect); Future- Comprehensive metabolic panel (Lab Collect); Future- Vitamin D 25 hydroxy (Lab Collect); Future- Cancel: Lipid panel (Clinic Collect)- Lipid Panel (Lab Collect); Future- Complete Blood Count with Diff (Lab Collect)- Comprehensive metabolic panel (Lab Collect)- Lipid Panel (Lab Collect)- Vitamin D 25 hydroxy (Lab Collect)Major depressive disorder, recurrent episode, moderateUnspecified episodic mood disorderRuptured ovarian cyst- Referral to Obstetrics/GynecologyR akira in about 1 year (around 07/29/2018) for well check.oYkasta is doing pretty well right now. Would encourage her to continueexercising and eat healthier. Patient to see SENIOR ELECTRONICS ENGINEER. I think [facility] would be greatfor her.Subjective:HPI Comments: Working at [employer].Dr. Burdick at [facility]. No med changes recentlyThe patient's reason for visit is Well Check 21 Year. 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 (Feeling likeshe is overeating.)Activities & Sports:(Walking)Drugs: She uses tobacco (a few). She does not use drugs and does not use alcohol.Safety:She uses seat belt. She does not use phone/text while driving.Sex:Yokasta is sexually active. Typically, she uses oral contraceptives as hercurrent contraceptive method. Suicidality:She has anxiety. She has no suicidal ideation and has no homicidal ideation.MenstruationL ast Menstrual Period: 2 weeks ago.Menstruation: regular periodsOutputUrine and Stool Pattern:Urine and Stool Pattern: Normal stool pattern, normal urine pattern.SleepHours of sleep at a time: 8Teen Anticipatory GuidanceThe following anticipatory guidance was reviewed during the visit:Nutrition: limit junk food/fast food and soft drinks.Safety: home safety.Social: avoid or limit screen time.Health: age appropriate dental care, don't smoke or chew tobacco, talk withtrusted adult if feeling sad or nervous, limit sun exposure/use sunscreen andself breast exam.CRAFFT AssessmentHas not used alcohol or other drugs.Has not ridden in a CAR driven by someone (including self) who was high orhad been using alcohol or drugs.ScreeningsPrevio us Vaccine Reactions: No.Hearing Vision Concerns:Patient wears glasses or contact lenses.The caregiver has no concerns about the patient's hearing.Patient is being seen by retail chain store area supervisor or annealing operator.Primary Care Review of SystemsObjective:Physi dhruv ExamConstitutional: She appears well. She is active. No distress.overweightHEN T:Head: Atraumatic.Right Ear: Tympanic membrane and external ear normal.Left Ear: Tympanic membrane and external ear normal.Nose: Nose normal.Mouth/Throat: Mucous membranes are moist. Dentition is normal. Oropharynx isclear.Eyes: Conjunctivae and EOM are normal. No strabismus. Pupils are equal, round,and reactive to light.Neck: Normal range of motion. Neck supple. Thyroid normal. No adenopathy.Cardiovascu lar: Normal rate, regular rhythm, S1 normal and S2 normal. Pulsesare palpable.No murmur heard.Pulmonary/Chest: Breath sounds normal. No respiratory distress. Exhibits nodeformity.Abdominal: Soft. Bowel sounds are normal. She exhibits no distension and nomass. There is no hepatosplenomegaly. There is no tenderness.Musculoskel etal: Normal range of motion. Back: She exhibits no scoliosis.Neurological : She is alert. She has normal strength. She exhibits normal muscletone. Gait normal.Skin: No rash noted. No pallor. Skin is warm.Vitals reviewed: Blood pressure 134/76, pulse 93, height 172.5 cm, weight (!)110.9 kg. Normal [facility] Stool gastrointestinal hemog lobin detection by immunologic method Lower GI hemoglobin IA Ql (Stl) [facility] Work Phone: Vital Signs Date Time Vital Sign Value Performing Clinician Facility 07-20-2025 08:49-0400 Body mass index (BMI) [Ratio] 41.14 kg/m2 Amberly Sanchez MD Work Phone: [facility] 07-20-2025 08:49-0400 Body weight 122.74 kg Amberly Sanchez MD Work Phone: [facility] 07-20-2025 08:49-0400 Diastolic blood pressure 80 mm[Hg] Amberly Sanchez MD Work Phone: [facility] 07-20-2025 08:49-0400 Systolic blood pressure 130 mm[Hg] Amberly Sanchez MD Work Phone: [facility] 07-13-2025 08:49-0400 Body mass index (BMI) [Ratio] 40.69 kg/m2 Amberly Sanchez MD Work Phone: [facility] 07-13-2025 08:49-0400 Body weight 121.38 kg Amberly Sanchez MD Work Phone: [facility] 07-13-2025 08:49-0400 Diastolic blood pressure 84 mm[Hg] Amberly Sanchez MD Work Phone: [facility] 07-13-2025 08:49-0400 Systolic blood pressure 129 mm[Hg] Amberly Sanchez MD Work Phone: [facility] 07-02-2025 08:38-0400 Body mass index (BMI) [Ratio] 40.66 kg/m2 Noam Wyman MD Work Phone: [facility] 07-02-2025 08:38-0400 Body weight 121.29 kg Noam Wyman MD Work Phone: [facility] 07-02-2025 08:38-0400 Diastolic blood pressure 72 mm[Hg] Noam Wyman MD Work Phone: [facility] 07-02-2025 08:38-0400 Systolic blood pressure 120 mm[Hg] Noam Wyman MD Work Phone: [facility] 06-22-2025 07:18-0400 Body temperature 97.5 [degF] Nighat Munoz MACHINIST [employer] Work Phone: 8(348)866-092742 [place] [address] 06-22-2025 07:18-0400 Diastolic blood pressure 55 mm[Hg] Nighat Munoz MACHINIST [employer] Work Phone: 1(325)288-244542 [place] [address] 06-22-2025 07:18-0400 Heart rate 63 /min Nighat Munoz MACHINIST [employer] Work Phone: 7(287)943-248342 [place] [address] 06-22-2025 07:18-0400 Respiratory rate 16 /min Nighat Munoz MACHINIST [employer] Work Phone: 8(003)128-328842 [place] [address] 06-22-2025 07:18-0400 Systolic blood pressure 104 mm[Hg] Nighat Munoz MACHINIST [employer] Work Phone: 8(007)673-446242 [place] [address] 06-22-2025 07:17-0400 SaO2% (BldA) [Mass fraction] 98 % Nighat Munoz MACHINIST [employer] Work Phone: 0(860)270-952742 [place] [address] 06-21-2025 16:56-0400 Body height 172.72 cm Nighat Munoz MACHINIST [employer] Work Phone: 6(821)447-570942 [place] [address] 06-21-2025 16:56-0400 Body mass index (BMI) [Ratio] 40.6 kg/m2 Nighat Munoz MACHINIST [employer] Work Phone: 9(155)941-394242 [place] [address] 06-21-2025 16:56-0400 Body weight 121.1 kg Nighat Munoz MACHINIST [employer] Work Phone: [facility] 06-21-2025 14:16-0400 Body mass index (BMI) [Ratio] 40.51 kg/m2 Noam Wyman MD Work Phone: [facility] 06-21-2025 14:16-0400 Body weight 120.84 kg Noam Wyman MD Work Phone: [facility] 06-21-2025 14:16-0400 Diastolic blood pressure 70 mm[Hg] Noam Wyman MD Work Phone: [facility] 06-21-2025 14:16-0400 Systolic blood pressure 110 mm[Hg] Noam Wymna MD Work Phone: [facility] 06-16-2025 09:40-0400 Body mass index (BMI) [Ratio] 40.14 kg/m2 Tom Reid MD Work Phone: [facility] 06-16-2025 09:40-0400 Body weight 119.75 kg Tom Reid MD Work Phone: [facility] 06-16-2025 09:40-0400 Diastolic blood pressure 78 mm[Hg] Tom Reid MD Work Phone: [facility] 06-16-2025 09:40-0400 Systolic blood pressure 130 mm[Hg] Tom Reid MD Work Phone: [facility] 06-03-2025 10:16-0400 Body mass index (BMI) [Ratio] 39.53 kg/m2 Amberly Sanchez MD Work Phone: [facility] 06-03-2025 10:16-0400 Body weight 117.94 kg Amberly Sanchez MD Work Phone: [facility] 06-03-2025 10:16-0400 Diastolic blood pressure 70 mm[Hg] Amberly Sanchez MD Work Phone: [facility] 06-03-2025 10:16-0400 Systolic blood pressure 118 mm[Hg] Amberly Sanchez MD Work Phone: [facility] 05-06-2025 08:03-0400 Body mass index (BMI) [Ratio] 39.38 kg/m2 Judit Hamaynor POT HOLDER BINDER.DROSSER Work Phone: [facility] 05-06-2025 08:03-0400 Body weight 117.48 kg Judit Haury POT HOLDER BINDER.DROSSER Work Phone: [facility] 05-06-2025 08:03-0400 Diastolic blood pressure 74 mm[Hg] Judit Haury POT HOLDER BINDER.DROSSER Work Phone: [facility] 05-06-2025 08:03-0400 Systolic blood pressure 112 mm[Hg] Judit Haury POT HOLDER BINDER.DROSSER Work Phone: [facility] 04-14-2025 12:58-0400 Body mass index (BMI) [Ratio] 39.08 kg/m2 Nighat Maloney POT HOLDER BINDER.CNM Work Phone: [facility] 04-14-2025 12:58-0400 Body weight 116.57 kg Nighat Maloney POT HOLDER BINDER.CNM Work Phone: [facility] 04-14-2025 12:58-0400 Diastolic blood pressure 76 mm[Hg] Nighat Maloney POT HOLDER BINDER.CNM Work Phone: [facility] 04-14-2025 12:58-0400 Systolic blood pressure 120 mm[Hg] Nighat Maloney POT HOLDER BINDER.CNM Work Phone: [facility] 04-08-2025 08:59-0400 Body mass index (BMI) [Ratio] 38.92 kg/m2 Judit Hamaynor POT HOLDER BINDER.DROSSER Work Phone: [facility] 04-08-2025 08:59-0400 Body weight 116.12 kg Judit Hamaynor POT HOLDER BINDER.DROSSER Work Phone: [facility] 04-08-2025 08:59-0400 Diastolic blood pressure 80 mm[Hg] Judit Haury POT HOLDER BINDER.DROSSER Work Phone: [facility] 04-08-2025 08:59-0400 Systolic blood pressure 120 mm[Hg] Judit Pimentel POT HOLDER BINDER.DROSSER Work Phone: [facility] 03-16-2025 08:05-0400 Body mass index (BMI) [Ratio] 39.23 kg/m2 Nighat Maloney POT HOLDER BINDER.CNM Work Phone: [facility] 03-16-2025 08:05-0400 Body weight 117.03 kg Nighat Maloney POT HOLDER BINDER.CNM Work Phone: [facility] 03-16-2025 08:05-0400 Diastolic blood pressure 68 mm[Hg] Nighat Maloney POT HOLDER BINDER.CNM Work Phone: [facility] 03-16-2025 08:05-0400 Systolic blood pressure 112 mm[Hg] Nighat Maloney POT HOLDER BINDER.CNM Work Phone: [facility] 02-16-2025 09:29-0400 Body mass index (BMI) [Ratio] 40.45 kg/m2 Nighat Maloney POT HOLDER BINDER.CNM Work Phone: [facility] 02-16-2025 09:29-0400 Body weight 120.66 kg Nighat Maloney POT HOLDER BINDER.CNM Work Phone: [facility] 02-16-2025 09:29-0400 Diastolic blood pressure 78 mm[Hg] Nighat Maloney POT HOLDER BINDER.CNM Work Phone: [facility] 02-16-2025 09:29-0400 Systolic blood pressure 122 mm[Hg] Nighat Maloney POT HOLDER BINDER.CNM Work Phone: [facility] 01-21-2025 09:30-0500 Body height 172.7 cm Judit Pimentel POT HOLDER BINDER.DROSSER Work Phone: [facility] 01-21-2025 09:30-0500 Body mass index (BMI) [Ratio] 41.81 kg/m2 Judit Pimentel POT HOLDER BINDER.DROSSER Work Phone: [facility] 01-21-2025 09:30-0500 Body weight 124.74 kg Judit Pimentel POT HOLDER BINDER.DROSSER Work Phone: [facility] 01-21-2025 09:30-0500 Diastolic blood pressure 70 mm[Hg] Judit Pimentel POT HOLDER BINDER.DROSSER Work Phone: [facility] 01-21-2025 09:30-0500 Systolic blood pressure 128 mm[Hg] Judit Pimentel POT HOLDER BINDER.DROSSER Work Phone: [facility] 12-23-2024 15:26-0500 Body mass index (BMI) [Ratio] 43.18 kg/m2 Ari Plotts POT HOLDER BINDER.CNM Work Phone: [facility] 12-23-2024 15:26-0500 Body weight 128.82 kg Ari Plotts POT HOLDER BINDER.CNM Work Phone: [facility] 12-23-2024 15:26-0500 Diastolic blood pressure 76 mm[Hg] Ari Plotts POT HOLDER BINDER.CNM Work Phone: [facility] 12-23-2024 15:26-0500 Systolic blood pressure 118 mm[Hg] Ari Plotts POT HOLDER BINDER.CNM Work Phone: [facility] 11-30-2024 15:42-0500 Body mass index (BMI) [Ratio] 41.6 kg/m2 Meg Bettencourt MD Work Phone: [facility] 11-30-2024 15:42-0500 Body temperature 99.3 [degF] Meg Bettencourt MD Work Phone: [facility] 11-30-2024 15:42-0500 Body weight 124.1 kg Meg Bettencourt MD Work Phone: [facility] 11-30-2024 15:42-0500 Diastolic blood pressure 68 mm[Hg] Meg Bettencourt MD Work Phone: [facility] 11-30-2024 15:42-0500 Heart rate 103 /min Meg Bettencourt MD Work Phone: [facility] 11-30-2024 15:42-0500 Respiratory rate 22 /min Mge Bettencourt MD Work Phone: [facility] 11-30-2024 15:42-0500 SaO2% (BldA) [Mass fraction] 100 % Meg Bettencourt MD Work Phone: [facility] 11-30-2024 15:42-0500 Systolic blood pressure 132 mm[Hg] Meg Bettencourt MD Work Phone: [facility] 03-25-2024 07:47-0400 Body mass index (BMI) [Ratio] 42.24 kg/m2 Nighat Qiu POT HOLDER BINDER.DROSSER Work Phone: [facility] 03-25-2024 07:47-0400 Body temperature 98.01 [degF] Nighat Qiu POT HOLDER BINDER.DROSSER Work Phone: [facility] 03-25-2024 07:47-0400 Body weight 126 kg Nighat Qiu POT HOLDER BINDER.DROSSER Work Phone: [facility] 03-25-2024 07:47-0400 Diastolic blood pressure 72 mm[Hg] Nighat Qiu POT HOLDER BINDER.DROSSER Work Phone: [facility] 03-25-2024 07:47-0400 Heart rate 98 /min Nighat Qiu POT HOLDER BINDER.DROSSER Work Phone: [facility] 03-25-2024 07:47-0400 Respiratory rate 18 /min Nighat Qiu POT HOLDER BINDER.DROSSER Work Phone: [facility] 03-25-2024 07:47-0400 SaO2% (BldA) [Mass fraction] 99 % Nighat Qiu POT HOLDER BINDER.DROSSER Work Phone: [facility] 03-25-2024 07:47-0400 Systolic blood pressure 124 mm[Hg] Nighat Qiu POT HOLDER BINDER.DROSSER Work Phone: [facility] 10-17-2023 13:51-0500 Body temperature 97.8 [degF] [facility] 10-17-2023 13:51-0500 Diastolic blood pressure 79 mm[Hg] [facility] 10-17-2023 13:51-0500 Heart rate 77 /min [facility] 10-17-2023 13:51-0500 Respiratory rate 16 /min [facility] 10-17-2023 13:51-0500 SaO2% (BldA) [Mass fraction] 98 % [facility] 10-17-2023 13:51-0500 Systolic blood pressure 118 mm[Hg] [facility] 10-15-2023 11:42-0500 Body height 172.72 cm [facility] 10-15-2023 11:42-0500 Body mass index (BMI) [Ratio] 40.2 kg/m2 [facility] 10-15-2023 11:42-0500 Body weight 120.1 kg [facility] 10-14-2023 08:58-0500 Body weight 119.75 kg Radha Rowell MD Work Phone: [facility] 10-14-2023 08:58-0500 Diastolic blood pressure 74 mm[Hg] Radha Rowell MD Work Phone: [facility] 10-14-2023 08:58-0500 Systolic blood pressure 122 mm[Hg] Radha Rowell MD Work Phone: [facility] 10-10-2023 04:46-0500 Body temperature 97.6 [degF] [facility] 10-10-2023 04:46-0500 Diastolic blood pressure 76 mm[Hg] [facility] 10-10-2023 04:46-0500 Heart rate 93 /min [facility] 10-10-2023 04:46-0500 SaO2% (BldA) [Mass fraction] 96 % [facility] 10-10-2023 04:46-0500 Systolic blood pressure 129 mm[Hg] [facility] 10-10-2023 04:34-0500 Body height 172.72 cm [facility] 10-10-2023 04:34-0500 Body mass index (BMI) [Ratio] 40.6 kg/m2 [facility] 10-10-2023 04:34-0500 Body weight 121.3 kg [facility] 10-07-2023 09:44-0500 Body weight 120.2 kg Radha Rowell MD Work Phone: [facility] 10-07-2023 09:44-0500 Diastolic blood pressure 84 mm[Hg] Radha Rowell MD Work Phone: [facility] 10-07-2023 09:44-0500 Systolic blood pressure 126 mm[Hg] Radha Rowell MD Work Phone: [facility] 10-04-2023 15:27-0400 Body weight 119.75 kg Nighat Maloney APRN.CNM Work Phone: [facility] 10-04-2023 15:27-0400 Diastolic blood pressure 78 mm[Hg] Nighat Maloney APRN.CNM Work Phone: [facility] 10-04-2023 15:27-0400 Systolic blood pressure 132 mm[Hg] Nighat Maloney APRN.CNM Work Phone: [facility] 10-01-2023 10:32-0400 Body weight 118.39 kg Radha Rowell MD Work Phone: [facility] 10-01-2023 10:32-0400 Diastolic blood pressure 80 mm[Hg] Radha Rowell MD Work Phone: [facility] 10-01-2023 10:32-0400 Systolic blood pressure 128 mm[Hg] Radha Rowell MD Work Phone: [facility] 09-23-2023 09:30-0400 Body weight 117.48 kg Radha Rowell MD Work Phone: [facility] 09-23-2023 09:30-0400 Diastolic blood pressure 76 mm[Hg] Radha Rowell MD Work Phone: [facility] 09-23-2023 09:30-0400 Systolic blood pressure 117 mm[Hg] Radha Rowell MD Work Phone: [facility] 09-22-2023 10:15-0400 Body height 172.72 cm [facility] 09-22-2023 10:15-0400 Body mass index (BMI) [Ratio] 39.4 kg/m2 [facility] 09-22-2023 10:15-0400 Body weight 117.66 kg [facility] 09-22-2023 10:13-0400 Body temperature 98.9 [degF] [facility] 09-22-2023 10:13-0400 Diastolic blood pressure 63 mm[Hg] [facility] 09-22-2023 10:13-0400 Heart rate 85 /min [facility] 09-22-2023 10:13-0400 Systolic blood pressure 125 mm[Hg] [facility] 09-17-2023 14:30-0400 Body weight 117.94 kg Nst Wstr Work Phone: [facility] 09-17-2023 14:30-0400 Diastolic blood pressure 78 mm[Hg] Nst Wstr Work Phone: [facility] 09-17-2023 14:30-0400 Systolic blood pressure 124 mm[Hg] Nst Wstr Work Phone: [facility] 09-11-2023 10:40-0400 Body weight 117.94 kg Radha Rowell MD Work Phone: [facility] 09-11-2023 10:40-0400 Diastolic blood pressure 76 mm[Hg] Radha Rowell MD Work Phone: [facility] 09-11-2023 10:40-0400 Systolic blood pressure 114 mm[Hg] Radha Rowell MD Work Phone: [facility] 08-18-2023 01:05-0400 Diastolic blood pressure 59 mm[Hg] [facility] 08-18-2023 01:05-0400 Heart rate 88 /min [facility] 08-18-2023 01:05-0400 Systolic blood pressure 107 mm[Hg] [facility] 08-18-2023 01:04-0400 Body temperature 98.7 [degF] [facility] 08-18-2023 01:04-0400 SaO2% (BldA) [Mass fraction] 98 % [facility] 08-17-2023 20:17-0400 Diastolic blood pressure 62 mm[Hg] [facility] 08-17-2023 20:17-0400 Heart rate 68 /min [facility] 08-17-2023 20:17-0400 Systolic blood pressure 118 mm[Hg] [facility] 08-17-2023 19:18-0400 Body temperature 98.3 [degF] [facility] 08-17-2023 18:51-0400 Body height 172.72 cm [facility] 08-17-2023 18:51-0400 Body mass index (BMI) [Ratio] 38.9 kg/m2 [facility] 08-17-2023 18:51-0400 Body weight 116.39 kg [facility] 08-17-2023 18:46-0400 SaO2% (BldA) [Mass fraction] 97 % [facility] 08-02-2023 10:34-0400 Body weight 117.94 kg Radha Rowell MD Work Phone: [facility] 08-02-2023 10:34-0400 Diastolic blood pressure 62 mm[Hg] Radha Rowell MD Work Phone: [facility] 08-02-2023 10:34-0400 Systolic blood pressure 114 mm[Hg] Radha Rowell MD Work Phone: [facility] 07-23-2023 10:30-0400 Body weight 118.39 kg Radha Rowell MD Work Phone: [facility] 07-23-2023 10:30-0400 Diastolic blood pressure 70 mm[Hg] Radha Rowell MD Work Phone: [facility] 07-23-2023 10:30-0400 Systolic blood pressure 122 mm[Hg] Radha Rowell MD Work Phone: [facility] 07-21-2023 02:33-0400 Diastolic blood pressure 64 mm[Hg] [facility] 07-21-2023 02:33-0400 Heart rate 80 /min [facility] 07-21-2023 02:33-0400 Systolic blood pressure 129 mm[Hg] [facility] 07-21-2023 02:25-0400 Body temperature 98.1 [degF] [facility] 07-21-2023 02:20-0400 Body mass index (BMI) [Ratio] 40 kg/m2 [facility] 07-21-2023 02:20-0400 Body weight 119.38 kg [facility] 07-11-2023 11:43-0400 Body weight 117.48 kg Ari Humeratati [employer] Work Phone: [facility] 07-11-2023 11:43-0400 Diastolic blood pressure 60 mm[Hg] Ari Plotts [employer]CNM Work Phone: [facility] 07-11-2023 11:43-0400 Systolic blood pressure 100 mm[Hg] Ari Blum [employer]CNM Work Phone: [facility] 06-27-2023 10:10-0400 Body weight 117.03 kg Radha Rowell MD Work Phone: [facility] 06-27-2023 10:10-0400 Diastolic blood pressure 72 mm[Hg] Radha Rowell MD Work Phone: [facility] 06-27-2023 10:10-0400 Systolic blood pressure 114 mm[Hg] Radha Rowell MD Work Phone: [facility] 06-07-2023 13:48-0400 Body height 172.7 cm Ob Ultrasound Work Phone: [facility] 06-07-2023 13:48-0400 Body weight 117.94 kg Ob Ultrasound Work Phone: [facility] 06-03-2023 14:36-0400 Body temperature 97.8 [degF] Dr. Magnolia Chen Work Phone: [facility] 06-03-2023 14:36-0400 Diastolic blood pressure 76 mm[Hg] Dr. Magnolia Chen Work Phone: [facility] 06-03-2023 14:36-0400 Heart rate 74 /min Dr. Magnolia Chen Work Phone: [facility] 06-03-2023 14:36-0400 Respiratory rate 14 /min Dr. Magnolia Chen Work Phone: [facility] 06-03-2023 14:36-0400 SaO2% (BldA) [Mass fraction] 99 % Dr. Magnolia Chen Work Phone: [facility] 06-03-2023 14:36-0400 Systolic blood pressure 118 mm[Hg] Dr. Magnolia Chen Work Phone: [facility] 06-03-2023 11:27-0400 Body height 172.[address] Magnolia Chen Work Phone: [facility] 06-03-2023 11:27-0400 Body mass index (BMI) [Ratio] 39.2 kg/m2 Dr. Magnolia Chen Work Phone: [facility] 06-03-2023 11:27-0400 Body weight 117.[address] Magnolia Chen Work Phone: [facility] 05-04-2023 15:00-0400 Body height 172.[address] Magnolia Chen Work Phone: [facility] 05-04-2023 15:00-0400 Body mass index (BMI) [Ratio] 39.2 kg/m2 Dr. Magnolia Chen Work Phone: [facility] 05-04-2023 15:00-0400 Body temperature 98.6 [degF] Dr. Magnolia Chen Work Phone: [facility] 05-04-2023 15:00-0400 Body weight 117.[address] Magnolia Chen Work Phone: [facility] 05-04-2023 15:00-0400 Diastolic blood pressure 54 mm[Hg] Dr. Magnolia Chen Work Phone: [facility] 05-04-2023 15:00-0400 Heart rate 109 /min Dr. Magnolia Chen Work Phone: [facility] 05-04-2023 15:00-0400 Respiratory rate 18 /min Dr. Magnolia Chen Work Phone: [facility] 05-04-2023 15:00-0400 SaO2% (BldA) [Mass fraction] 97 % Dr. Magnolia Chen Work Phone: [facility] 05-04-2023 15:00-0400 Systolic blood pressure 114 mm[Hg] Dr. Magnolia Chen Work Phone: [facility] 04-14-2023 13:10-0400 Body mass index (BMI) [Ratio] 40 kg/m2 Dr. Magnolia Chen Work Phone: [facility] 04-14-2023 13:10-0400 Body temperature 97.2 [degF] Dr. Magnolia Chen Work Phone: [facility] 04-14-2023 13:10-0400 Body weight 119.[address] Magnolia Chen Work Phone: [facility] 04-14-2023 13:10-0400 Diastolic blood pressure 76 mm[Hg] Dr. Magnolia Chen Work Phone: [facility] 04-14-2023 13:10-0400 Heart rate 95 /min Dr. Magnolia Chen Work Phone: [facility] 04-14-2023 13:10-0400 SaO2% (BldA) [Mass fraction] 98 % Dr. Magnolia Chen Work Phone: [facility] 04-14-2023 13:10-0400 Systolic blood pressure 128 mm[Hg] Dr. Magnolia Chen Work Phone: [facility] 04-03-2023 11:41-0400 Body height 172.72 cm [facility] 04-03-2023 11:41-0400 Body mass index (BMI) [Ratio] 40.6 kg/m2 [facility] 04-03-2023 11:41-0400 Body temperature 97.8 [degF] [facility] 04-03-2023 11:41-0400 Body weight 121.19 kg [facility] 04-03-2023 11:41-0400 Diastolic blood pressure 83 mm[Hg] [facility] 04-03-2023 11:41-0400 Heart rate 90 /min [facility] 04-03-2023 11:41-0400 Respiratory rate 16 /min [facility] 04-03-2023 11:41-0400 SaO2% (BldA) [Mass fraction] 98 % [facility] 04-03-2023 11:41-0400 Systolic blood pressure 150 mm[Hg] [facility] 03-03-2023 22:47-0400 Diastolic blood pressure 70 mm[Hg] Dr. Magnolia Chen Work Phone: [facility] 03-03-2023 22:47-0400 Heart rate 80 /min Dr. Magnolia Chen Work Phone: [facility] 03-03-2023 22:47-0400 Respiratory rate 16 /min Dr. Magnolia Chen Work Phone: [facility] 03-03-2023 22:47-0400 SaO2% (BldA) [Mass fraction] 98 % Dr. Magnolia Chen Work Phone: [facility] 03-03-2023 22:47-0400 Systolic blood pressure 126 mm[Hg] Dr. Magnolia Chen Work Phone: [facility] 03-03-2023 20:48-0400 Body height 172.[address] Magnolia Chen Work Phone: [facility] 03-03-2023 20:48-0400 Body mass index (BMI) [Ratio] 41.3 kg/m2 Dr. Magnolia Chen Work Phone: [facility] 03-03-2023 20:48-0400 Body temperature 97.6 [degF] Dr. Magnolia Chen Work Phone: [facility] 03-03-2023 20:48-0400 Body weight 123.[address] Magnolia Chen Work Phone: [facility] 02-08-2023 13:34-0500 Body temperature 98.1 [degF] Meg Bettencourt MD Work Phone: [facility] 02-08-2023 13:34-0500 Body weight 122.38 kg Meg Bettencourt MD Work Phone: [facility] 02-08-2023 13:34-0500 Diastolic blood pressure 82 mm[Hg] Meg Bettencourt MD Work Phone: [facility] 02-08-2023 13:34-0500 Heart rate 69 /min Meg Bettencourt MD Work Phone: [facility] 02-08-2023 13:34-0500 Respiratory rate 18 /min Meg Bettencourt MD Work Phone: [facility] 02-08-2023 13:34-0500 SaO2% (BldA) [Mass fraction] 98 % Meg Bettencourt MD Work Phone: [facility] 02-08-2023 13:34-0500 Systolic blood pressure 112 mm[Hg] Meg Bettencourt MD Work Phone: [facility] 11-12-2022 14:15-0500 Body temperature 97.5 [degF] No Primary Care Physician [facility] 11-12-2022 14:15-0500 Diastolic blood pressure 58 mm[Hg] No Primary Care Physician [facility] 11-12-2022 14:15-0500 Heart rate 61 /min No Primary Care Physician [facility] 11-12-2022 14:15-0500 Respiratory rate 16 /min No Primary Care Physician [facility] 11-12-2022 14:15-0500 SaO2% (BldA) [Mass fraction] 98 % No Primary Care Physician [facility] 11-12-2022 14:15-0500 Systolic blood pressure 112 mm[Hg] No Primary Care Physician [facility] 11-12-2022 12:54-0500 Body height 172.72 cm No Primary Care Physician [facility] Work Phone: 11-12-2022 12:54-0500 Body mass index (BMI) [Ratio] 41.8 kg/m2 No Primary Care Physician [facility] 11-12-2022 12:54-0500 Body weight 125 kg No Primary Care Physician [facility] 11-08-2022 00:33-0500 Diastolic blood pressure 64 mm[Hg] No Primary Care Physician [facility] 11-08-2022 00:33-0500 Heart rate 78 /min No Primary Care Physician [facility] 11-08-2022 00:33-0500 Respiratory rate 18 /min No Primary Care Physician [facility] 11-08-2022 00:33-0500 SaO2% (BldA) [Mass fraction] 90 % No Primary Care Physician [facility] 11-08-2022 00:33-0500 Systolic blood pressure 110 mm[Hg] No Primary Care Physician [facility] 11-07-2022 21:12-0500 Body height 172.72 cm No Primary Care Physician [facility] Work Phone: 11-07-2022 21:12-0500 Body mass index (BMI) [Ratio] 42.5 kg/m2 No Primary Care Physician [facility] 11-07-2022 21:12-0500 Body temperature 97.9 [degF] No Primary Care Physician [facility] 11-07-2022 21:12-0500 Body weight 127 kg No Primary Care Physician [facility] 10-21-2022 19:56-0500 Body height 172.72 cm No Primary Care Physician [facility] Work Phone: 10-21-2022 19:56-0500 Body mass index (BMI) [Ratio] 42.5 kg/m2 No Primary Care Physician [facility] Work Phone: 10-21-2022 19:56-0500 Body temperature 97.6 [degF] No Primary Care Physician [facility] Work Phone: 10-21-2022 19:56-0500 Body weight 127 kg No Primary Care Physician [facility] Work Phone: 10-21-2022 19:56-0500 Diastolic blood pressure 88 mm[Hg] No Primary Care Physician [facility] Work Phone: 10-21-2022 19:56-0500 Heart rate 78 /min No Primary Care Physician [facility] Work Phone: 10-21-2022 19:56-0500 Respiratory rate 16 /min No Primary Care Physician [facility] Work Phone: 10-21-2022 19:56-0500 SaO2% (BldA) [Mass fraction] 98 % No Primary Care Physician [facility] Work Phone: 10-21-2022 19:56-0500 Systolic blood pressure 146 mm[Hg] No Primary Care Physician [facility] Work Phone: 2022 10:09-0500 Body mass index (BMI) [Ratio] 42.7 kg/m2 No Primary Care Physician [facility] Work Phone: 2022 10:09-0500 Body temperature 98 [degF] No Primary Care Physician [facility] Work Phone: 2022 10:09-0500 Body weight 127.45 kg No Primary Care Physician [facility] Work Phone: 2022 10:09-0500 Diastolic blood pressure 72 mm[Hg] No Primary Care Physician [facility] Work Phone: 2022 10:09-0500 Heart rate 82 /min No Primary Care Physician [facility] Work Phone: 2022 10:09-0500 Respiratory rate 16 /min No Primary Care Physician [facility] Work Phone: 2022 10:09-0500 SaO2% (BldA) [Mass fraction] 98 % No Primary Care Physician [facility] Work Phone: 2022 10:09-0500 Systolic blood pressure 106 mm[Hg] No Primary Care Physician [facility] Work Phone: 09-24-2022 10:39-0400 Body temperature 97.6 [degF] No Primary Care Physician [facility] Work Phone: 09-24-2022 10:39-0400 Diastolic blood pressure 74 mm[Hg] No Primary Care Physician [facility] Work Phone: 09-24-2022 10:39-0400 Heart rate 86 /min No Primary Care Physician [facility] Work Phone: 09-24-2022 10:39-0400 Respiratory rate 18 /min No Primary Care Physician [facility] Work Phone: 09-24-2022 10:39-0400 SaO2% (BldA) [Mass fraction] 97 % No Primary Care Physician [facility] Work Phone: 09-24-2022 10:39-0400 Systolic blood pressure 136 mm[Hg] No Primary Care Physician [facility] Work Phone: 09-24-2022 05:19-0400 Inhaled oxygen flow rate 2 L/min No Primary Care Physician [facility] Work Phone: 09-23-2022 09:44-0400 Body height 173 cm No Primary Care Physician [facility] Work Phone: 09-23-2022 09:44-0400 Body mass index (BMI) [Ratio] 44.4 kg/m2 No Primary Care Physician [facility] Work Phone: 09-23-2022 09:44-0400 Body weight 132.9 kg No Primary Care Physician [facility] Work Phone: 09-23-2022 06:43-0400 Body temperature 97.8 [degF] No Primary Care Physician [facility] Work Phone: 09-23-2022 06:43-0400 Diastolic blood pressure 68 mm[Hg] No Primary Care Physician [facility] Work Phone: 09-23-2022 06:43-0400 Heart rate 74 /min No Primary Care Physician [facility] Work Phone: 09-23-2022 06:43-0400 Respiratory rate 10 /min No Primary Care Physician [facility] Work Phone: 09-23-2022 06:43-0400 SaO2% (BldA) [Mass fraction] 100 % No Primary Care Physician [facility] Work Phone: 09-23-2022 06:43-0400 Systolic blood pressure 120 mm[Hg] No Primary Care Physician [facility] Work Phone: 09-23-2022 00:28-0400 Body height 172.72 cm No Primary Care Physician [facility] Work Phone: 09-23-2022 00:28-0400 Body mass index (BMI) [Ratio] 44.3 kg/m2 No Primary Care Physician [facility] Work Phone: 09-23-2022 00:28-0400 Body weight 132.2 kg No Primary Care Physician [facility] Work Phone: 03-14-2022 13:25-0400 Body temperature 97.8 [degF] [facility] Work Phone: 03-14-2022 13:25-0400 Diastolic blood pressure 58 mm[Hg] [facility] Work Phone: 03-14-2022 13:25-0400 Heart rate 87 /min [facility] Work Phone: 03-14-2022 13:25-0400 Respiratory rate 14 /min [facility] Work Phone: 03-14-2022 13:25-0400 SaO2% (BldA) [Mass fraction] 97 % [facility] Work Phone: 03-14-2022 13:25-0400 Systolic blood pressure 120 mm[Hg] [facility] Work Phone: 03-12-2022 11:36-0400 Body height 172.72 cm [facility] Work Phone: 03-12-2022 11:36-0400 Body mass index (BMI) [Ratio] 40.2 kg/m2 [facility] Work Phone: 03-12-2022 11:36-0400 Body weight 120 kg [facility] Work Phone: 03-06-2022 10:10-0400 Body height 172.72 cm [facility] Work Phone: 03-06-2022 10:10-0400 Body mass index (BMI) [Ratio] 40.4 kg/m2 [facility] Work Phone: 03-06-2022 10:10-0400 Body weight 120.8 kg [facility] Work Phone: 03-06-2022 10:09-0400 Body temperature 98.4 [degF] [facility] Work Phone: 03-06-2022 09:00-0400 Diastolic blood pressure 71 mm[Hg] [facility] Work Phone: 03-06-2022 09:00-0400 Heart rate 89 /min [facility] Work Phone: 03-06-2022 09:00-0400 Systolic blood pressure 126 mm[Hg] [facility] Work Phone: 02-23-2022 13:35-0400 Body height 172.72 cm [facility] Work Phone: 02-23-2022 13:35-0400 Body mass index (BMI) [Ratio] 39.5 kg/m2 [facility] Work Phone: 02-23-2022 13:35-0400 Body weight 117.93 kg [facility] Work Phone: 02-23-2022 13:19-0400 Heart rate 87 /min [facility] Work Phone: 02-23-2022 13:19-0400 SaO2% (BldA) [Mass fraction] 99 % [facility] Work Phone: 02-23-2022 13:18-0400 Body temperature 97.9 [degF] [facility] Work Phone: 02-23-2022 13:17-0400 Diastolic blood pressure 56 mm[Hg] [facility] Work Phone: 02-23-2022 13:17-0400 Systolic blood pressure 119 mm[Hg] [facility] Work Phone: 01-18-2022 18:50-0500 Diastolic blood pressure 73 mm[Hg] [facility] Work Phone: 01-18-2022 18:50-0500 Heart rate 74 /min [facility] Work Phone: 01-18-2022 18:50-0500 Systolic blood pressure 132 mm[Hg] [facility] Work Phone: 01-18-2022 18:20-0500 Body temperature 97.8 [degF] [facility] Work Phone: 01-18-2022 18:20-0500 SaO2% (BldA) [Mass fraction] 97 % [facility] Work Phone: 01-18-2022 16:22-0500 Body mass index (BMI) [Ratio] 38.9 kg/m2 [facility] Work Phone: 01-18-2022 16:22-0500 Body weight 116 kg [facility] Work Phone: 12-28-2021 19:43-0500 Body temperature 98.1 [degF] [facility] Work Phone: 12-28-2021 19:43-0500 Diastolic blood pressure 63 mm[Hg] [facility] Work Phone: 12-28-2021 19:43-0500 Heart rate 85 /min [facility] Work Phone: 12-28-2021 19:43-0500 SaO2% (BldA) [Mass fraction] 94 % [facility] Work Phone: 12-28-2021 19:43-0500 Systolic blood pressure 130 mm[Hg] [facility] Work Phone: 12-28-2021 19:37-0500 Body mass index (BMI) [Ratio] 39.3 kg/m2 [facility] Work Phone: 12-28-2021 19:37-0500 Body weight 117.38 kg [facility] Work Phone: 12-10-2021 18:22-0500 Body temperature 98.6 [degF] [facility] Work Phone: 12-10-2021 18:22-0500 Diastolic blood pressure 64 mm[Hg] [facility] Work Phone: 12-10-2021 18:22-0500 Heart rate 88 /min [facility] Work Phone: 12-10-2021 18:22-0500 Systolic blood pressure 118 mm[Hg] [facility] Work Phone: 12-10-2021 15:25-0500 Body mass index (BMI) [Ratio] 38.3 kg/m2 [facility] Work Phone: 12-10-2021 15:25-0500 Body weight 114.4 kg [facility] Work Phone: 12-10-2021 15:18-0500 SaO2% (BldA) [Mass fraction] 97 % [facility] Work Phone: 11-19-2021 23:04-0500 Body temperature 97.8 [degF] [facility] Work Phone: 11-19-2021 23:04-0500 Diastolic blood pressure 55 mm[Hg] [facility] Work Phone: 11-19-2021 23:04-0500 Heart rate 72 /min [facility] Work Phone: 11-19-2021 23:04-0500 SaO2% (BldA) [Mass fraction] 97 % [facility] Work Phone: 11-19-2021 23:04-0500 Systolic blood pressure 116 mm[Hg] [facility] Work Phone: 11-19-2021 23:00-0500 Body mass index (BMI) [Ratio] 37.5 kg/m2 [facility] Work Phone: 11-19-2021 23:00-0500 Body weight 112.03 kg [facility] Work Phone: Encounters Encounter Date Encounter Type Care Provider Facility Start: 07-20-2025 End: 07-20-2025 Patient encounter procedure Amberly Sanchez MD Work Phone: OB/Gynecology Comment on above: Obesity affecting pr egnancy in third trimester, unspecified obesity type (HCC) (Primary Dx) Start: 07-20-2025 End: 07-20-2025 ambulatory ALESIA MALLORY Facility:[facility] Start: 07-20-2025 End: 07-20-2025 ambulatory TOM REID Facility:[facility] Start: 07-15-2025 End: 07-16-2025 Telephone encounter Amberly Sanchez MD Work Phone: OB/Gynecology Comment on above: Results Start: 07-13-2025 End: 07-13-2025 Patient encounter procedure Amberly Sanchez MD Work Phone: OB/Gynecology Comment on above: 34 weeks gestation o f (HCC) (Primary Dx); UTI (urinary tract infection) in , antepartum (HCC); Obesity affecting in third trimester, unspecified obesity type (HCC) Start: 07-13-2025 End: 07-13-2025 ambulatory TOM REID Facility:[facility] Start: 07-06-2025 End: 07-06-2025 ambulatory TOM REID Facility:[facility] Start: 07-02-2025 End: 07-02-2025 Patient encounter procedure Noam Wyman MD Work Phone: OB/Gynecology Comment on above: Obesity affecting pr egnancy in third trimester, unspecified obesity type (HCC) (Primary Dx); 32 weeks gestation of (HCC); Supervision of high risk in third trimester (HCC) Encounter for ultras ound to check growth (HCC) (Primary Dx); Obesity affecting in third trimester, unspecified obesity type (HCC); 32 weeks gestation of (HCC) Start: 07-02-2025 End: 07-02-2025 ambulatory NOAM WYMAN Facility:[facility] Start: 06-21-2025 End: 06-22-2025 Patient encounter procedure Ari Blum [facility] Work Phone: Start: 06-21-2025 End: 06-21-2025 Patient encounter procedure Noam Wyman MD Work Phone: OB/Gynecology Comment on above: Obesity affecting pr egnancy in third trimester, unspecified obesity type (HCC) (Primary Dx); Supervision of high risk in third trimester (HCC); 31 weeks gestation of (HCC); Dysuria Start: 06-21-2025 End: 06-22-2025 ambulatory Judit Pimentel APRN.CNP Work Phone: OB/Gynecology Comment on above: UTI symptoms Start: 06-16-2025 End: 06-16-2025 Patient encounter procedure Tom Reid MD Work Phone: OB/Gynecology Comment on above: Supervision of high risk in third trimester (HCC) (Primary Dx); Anemia complicating , third trimester (HCC); Obesity affecting in third trimester, unspecified obesity type (HCC); Hypothyroidism affecting in second trimester (HCC); Decreased movements in third trimester, single or unspecified fetus (HCC); 30 weeks gestation of (HCC) Start: 06-16-2025 End: 06-16-2025 ambulatory TOM REID Facility:[facility] Start: 06-08-2025 End: 06-08-2025 ambulatory JUDIT PIMENTEL Facility:[facility] Start: 06-07-2025 End: 06-07-2025 Telephone encounter Nurse Information Technology Intern Raeann Carranza Work Phone: Obstetrics/Gynecology Comment on above: PRAF Start: 06-03-2025 End: 06-03-2025 Patient encounter procedure Amberly Sanchez MD Work Phone: OB/Gynecology Comment on above: Obesity affecting pr egnancy in third trimester, unspecified obesity type (HCC) (Primary Dx); Pyelonephritis complicating , antepartum (HCC); Hypothyroidism affecting in second trimester (HCC); Anemia complicating , third trimester (HCC); 28 weeks gestation of (HCC) Start: 06-03-2025 End: 06-03-2025 ambulatory AMBERLY SANCHEZ Facility:[facility] Start: 05-21-2025 End: 05-21-2025 ambulatory Judit Pimentel APRN.DROSSER Work Phone: OB/Gynecology Comment on above: Work exemption Start: 05-17-2025 End: 05-17-2025 Telemedicine consultation with patient Alesia Mallory MD Work Phone: Endocrinology Start: 05-17-2025 End: 05-17-2025 ambulatory Alesia Mallory MD Work Phone: Endocrinology Comment on above: Hypothyroidism in pr egnancy, antepartum, second trimester (HCC) (Primary Dx); Elevated TSH; 24 weeks gestation of (HCC) Start: 05-07-2025 End: 05-07-2025 Follow-up encounter Judit Pimentel APRN.DROSSER Work Phone: OB/Gynecology Start: 05-06-2025 End: 05-06-2025 Patient encounter procedure Judit Pimentel APRN.DROSSER Work Phone: OB/Gynecology Comment on above: Encounter for superv ision of high risk in second trimester, antepartum (HCC) (Primary Dx); 24 weeks gestation of (HCC); Pyelonephritis complicating , antepartum (HCC); Hypothyroidism affecting in second trimester (HCC); Obesity affecting in second trimester, unspecified obesity type (HCC); Anemia complicating , second trimester (HCC); Screening for diabetes mellitus; Pruritus of in second trimester (HCC) Start: 05-06-2025 End: 05-06-2025 ambulatory JUDIT PIMENTEL Facility:[facility] Start: 04-28-2025 End: 04-28-2025 Follow-up encounter Aster Peratla DO Work Phone: [facility] Obstetrics & Gynecology Start: 04-24-2025 End: 04-28-2025 Evaluation and management of inpatient ABHAY CAMPBELL Facility:[facility] Start: 04-16-2025 End: 06-16-2025 Follow-up encounter Nighat Maloney APRN.CNM Work Phone: OB/Gynecology Start: 04-14-2025 End: 04-14-2025 Patient encounter procedure Nighat Maloney APRN.CNM Work Phone: OB/Gynecology Comment on above: 21 weeks gestation o f (HCC) (Primary Dx); Supervision of high risk in second trimester (HCC); Pyelonephritis complicating , antepartum (HCC); Hypothyroidism affecting in second trimester (HCC) Start: 04-14-2025 End: 04-14-2025 [facility] NIGHAT SARKIS Facility:[facility] Start: 04-09-2025 End: 04-11-2025 Evaluation and management of inpatient ISHAAN HIDALGOMAYURIGABBY Facility:[facility] Start: 04-09-2025 End: 06-09-2025 Follow-up encounter Judit Pimentel APRN.DROSSER Work Phone: OB/Gynecology Start: 04-08-2025 End: 04-08-2025 ambulatory NIGHAT MALONEY Facility:[facility] Start: 04-08-2025 End: 04-08-2025 Patient encounter procedure Judit Pimentel APRN.DROSSER Work Phone: OB/Gynecology Comment on above: Supervision of high risk in second trimester (HCC) (Primary Dx); 20 weeks gestation of (HCC); Dysuria; Hypothyroidism affecting in second trimester (HCC); Obesity affecting in second trimester, unspecified obesity type (HCC) Encounter for anatomic survey (HCC) (Primary Dx); Obesity affecting in first trimester, unspecified obesity type (HCC); Family history of defect; 20 weeks gestation of (HCC) Start: 04-08-2025 End: 04-08-2025 [facility] JUDIT MARGARITO Facility:[facility] Start: 03-16-2025 End: 03-16-2025 ambulatory NIGHAT SARKIS Facility:[facility] Start: 03-16-2025 End: 03-16-2025 Patient encounter procedure Nighat Maloney APRN.CNM Work Phone: OB/Gynecology Comment on above: Encounter for superv ision of high risk in first trimester, antepartum (HCC) (Primary Dx); 17 weeks gestation of (HCC); Dizziness; Rubella non-immune status, antepartum (HCC); Hypothyroidism affecting in first trimester (HCC); Borderline personality disorder (HCC); History of depression; History of depression; Anxiety disorder affecting , antepartum (HCC) Start: 02-16-2025 End: 02-16-2025 [facility] Facility:[facility] Start: 02-16-2025 End: 02-16-2025 Patient encounter procedure Whi Tech 2 Information Technology Intern [facility] Maternal Medicine Comment on above: Encounter for antena dottie screening for malformation using ultrasound (Primary Dx); 13 weeks gestation of Supervision of high risk in second trimester (Primary Dx); 13 weeks gestation of ; Obesity affecting in first trimester, unspecified obesity type; Hypothyroidism affecting in first trimester; UTI (urinary tract infection) in , antepartum; Anxiety disorder affecting , antepartum; Borderline personality disorder (HCC); PTSD (post-traumatic stress disorder); History of depression; History of trauma Start: 01-22-2025 End: 01-22-2025 Telephone encounter Funmilayo Pickens RN Maternal Medicine Comment on above: Boarding House Cook - O ther (PRAF) Start: 01-21-2025 End: 01-21-2025 [facility] Facility:[facility] Start: 01-21-2025 End: 01-21-2025 Patient encounter procedure Judit Margarito POT HOLDER BINDER.DROSSER Work Phone: OB/Gynecology Comment on above: Encounter for superv ision of high risk in first trimester, antepartum (Primary Dx); with uncertain dates in first trimester; Obesity affecting in first trimester, unspecified obesity type; History of miscarriage; Depression affecting ; Family history of defect; Screen for STD (sexually transmitted disease); Screening for cervical cancer; Dysuria during , antepartum; Hypothyroidism affecting in first trimester; Anxiety disorder affecting , antepartum; History of trauma; Borderline personality disorder (HCC); PTSD (post-traumatic stress disorder); PCOS (polycystic ovarian syndrome); Nausea and vomiting during ; Dizziness Start: 01-04-2025 End: 01-04-2025 Telephone encounter Radha Rowell MD Work Phone: OB/Gynecology Comment on above: Appointment Start: 12-23-2024 End: 12-23-2024 ambulatory ARI BLUM Facility:[facility] Start: 12-23-2024 End: 12-23-2024 Patient encounter procedure Ari Blum POT HOLDER BINDER.CNM Work Phone: OB/Gynecology Comment on above: Maternal obesity syn drome in third trimester (Primary Dx); BMI 40.0-44.9, adult (HCC); History of PCOS Start: 12-23-2024 End: 12-23-2024 ambulatory [facility] Facility:[facility] Start: 12-16-2024 End: 12-16-2024 ambulatory [facility] Facility:[facility] Start: 11-30-2024 End: 11-30-2024 Emergency department patient visit Darionzaire Cuevaso Facility:[facility] Start: 11-30-2024 End: 11-30-2024 Patient encounter procedure Meg Bettencourt MD Work Phone: [facility] Comment on above: Urinary frequency (P rimary Dx); Acute right flank pain; Dizziness Start: 11-30-2024 End: 11-30-2024 ambulatory NOAM WYMAN Facility:[facility] Start: 08-18-2024 End: 08-18-2024 ambulatory NOAM WYMAN Facility:[facility] Start: 08-18-2024 End: 08-18-2024 Patient encounter procedure Nighat Qiu APRN.DROSSER Work Phone: [facility] Comment on above: Allergic reaction, i nitial encounter (Primary Dx) Start: 03-25-2024 End: 03-25-2024 Subsequent hospital visit by physician Xr [facility] Work Phone: Radiology Comment on above: URI, acute [J06.9] Start: 03-25-2024 End: 03-25-2024 Patient encounter procedure Nighat Qiu APRN.DROSSER Work Phone: [facility] Comment on above: URI, acute (Primary Dx); Acute cough Start: 10-15-2023 Telephone encounter Nighat mejia APRN.CNM Work Phone: OB/Gynecology Comment on above: Patient Update Start: 10-15-2023 End: 10-17-2023 Evaluation and management of inpatient [facility] Work Phone: Start: 10-14-2023 End: 10-14-2023 Patient encounter procedure Radha Rowell MD Work Phone: OB/Gynecology Comment on above: Supervision of high risk in third trimester (Primary Dx); Maternal obesity syndrome in third trimester; BMI 40.0-44.9, adult (HCC); UTI (urinary tract infection) during , third trimester Start: 10-10-2023 End: 10-10-[address] [facility] Work Phone: Start: 10-10-2023 End: 10-10-2023 Patient encounter procedure [facility] Outpatients Work Phone: Start: 10-07-2023 End: 10-07-2023 Patient encounter procedure Radha Rowell MD Work Phone: OB/Gynecology Comment on above: Supervision of high risk in third trimester (Primary Dx); 36 weeks gestation of ; Obesity affecting , antepartum, unspecified obesity type; UTI (urinary tract infection) during , third trimester Start: 10-04-2023 End: 10-04-2023 Patient encounter procedure Nighat Maloney APRN.CNM Work Phone: OB/Gynecology Comment on above: Supervision of high risk in third trimester (Primary Dx); 36 weeks gestation of Start: 10-01-2023 End: 10-01-2023 Patient encounter procedure Radha Rowell MD Work Phone: OB/Gynecology Comment on above: Obesity affecting pr egnancy, antepartum, unspecified obesity type (Primary Dx); Supervision of high risk in third trimester; UTI (urinary tract infection) during , third trimester; 35 weeks gestation of Start: 09-27-2023 Telephone encounter Radha Rowell MD Work Phone: OB/Gynecology Comment on above: breast pump Start: 09-23-2023 End: 09-23-2023 Patient encounter procedure Radha Rowell MD Work Phone: OB/Gynecology Comment on above: 34 weeks gestation o f (Primary Dx); Obesity affecting , antepartum, unspecified obesity type; Supervision of high risk in third trimester; UTI (urinary tract infection) during , third trimester Start: 09-22-2023 End: 09-22-[address] [facility] Work Phone: Start: 09-22-2023 End: 09-22-[address] [facility] Outpatients Work Phone: Start: 09-17-2023 End: 09-17-2023 Patient encounter procedure [facility]st [facility] Work Phone: OB/Gynecology Comment on above: Maternal obesity syn drome in third trimester; Supervision of high risk in third trimester Start: 09-13-2023 ambulatory Radha bhardwaj MD Work Phone: OB/Gynecology Comment on above: Question regarding U RINE CULTURE LAB USE ON Start: 09-11-2023 End: 09-11-2023 Patient encounter procedure Radha Rowell MD Work Phone: OB/Gynecology Comment on above: Maternal obesity syn drome in third trimester (Primary Dx); Supervision of high risk in third trimester; 33 weeks gestation of Encounter for ultras ound to check growth (Primary Dx); Supervision of high risk in second trimester; Maternal obesity syndrome in third trimester; BMI 39.0-39.9,adult; 33 weeks gestation of Start: 08-20-2023 Telephone encounter Radha Rowell MD Work Phone: OB/Gynecology Comment on above: Results Start: 08-17-2023 End: 08-17-[address] [facility] Work Phone: Start: 08-17-2023 End: 08-17-2023 Patient encounter procedure [facility], Outpatients Work Phone: Start: 08-09-2023 Telephone encounter Boarding House Cook RN Obstetrics/Gynecology Comment on above: THIRD PRAF FORM Start: 08-04-2023 ambulatory Radha bhardwaj MD Work Phone: OB/Gynecology Comment on above: Work Start: 08-02-2023 End: 08-02-2023 Patient encounter procedure Radha Rowell MD Work Phone: OB/Gynecology Comment on above: Supervision of high risk in second trimester (Primary Dx); 27 weeks gestation of ; Need for vaccination; Maternal obesity syndrome in third trimester; BMI 39.0-39.9,adult Start: 07-23-2023 End: 07-23-2023 Patient encounter procedure Radha Rowell MD Work Phone: OB/Gynecology Comment on above: 25 weeks gestation o f (Primary Dx); Supervision of high risk in second trimester; Generalized pruritus Start: 07-21-2023 End: 07-21-2023 Patient encounter procedure [facility] Outpatients Work Phone: Start: 07-17-2023 Telephone encounter Radha Rowell MD Work Phone: OB/Gynecology Start: 07-16-2023 Telephone encounter Ari middleton APRN.CNM Work Phone: OB/Gynecology Comment on above: Results Start: 07-11-2023 Telephone encounter Ari middleton POT HOLDER BINDER.CNM Work Phone: OB/Gynecology Comment on above: Results Start: 07-11-2023 End: 07-11-2023 Patient encounter procedure Ari Blum POT HOLDER BINDER.CNM Work Phone: OB/Gynecology Comment on above: 24 weeks gestation o f (Primary Dx); Supervision of other high risk pregnancies, first trimester; Vaginal burning; Vaginal discharge during in second trimester; Pruritus; Gestational proteinuria in second trimester Start: 07-10-2023 ambulatory Radha bhardwaj MD Work Phone: OB/Gynecology Comment on above: Overall uncomfortabl e Start: 06-27-2023 End: 06-27-2023 Patient encounter procedure Radha Rowell MD Work Phone: OB/Gynecology Comment on above: Supervision of high risk in second trimester (Primary Dx); 22 weeks gestation of ; Leg cramps in Start: 06-07-2023 End: 06-07-2023 Patient encounter procedure Information Technology Intern [facility] Work Phone: OB/Gynecology Comment on above: Encounter for anatomic survey (Primary Dx); Supervision of other high risk pregnancies, first trimester; 13 weeks gestation of ; Obesity affecting in second trimester, unspecified obesity type Start: 06-03-2023 End: 06-03-2023 Emergency department patient visit [facility] Magnolia Chen [facility] Start: 05-30-2023 ambulatory Radha bhardwaj MD Work Phone: OB/Gynecology Comment on above: Giovanny [place] Start: 05-04-2023 End: 05-04-2023 Emergency department patient visit Dr. Magnolia Chen Work Phone: [facility]Emergency Department Start: 04-27-2023 ambulatory Radha bhardwaj MD Work Phone: OB/Gynecology Comment on above: UTI s Start: 04-14-2023 End: 04-14-[address] Magnolia Chen Work Phone: [facility] Start: 04-03-2023 Telephone encounter Radha Rowell MD Work Phone: Obstetrics/Gynecology Comment on above: Forms (praf) Start: 04-03-2023 End: 04-03-2023 Emergency department patient visit [facility] Start: 04-01-2023 End: 04-01-2023 Patient encounter procedure Radha Rowell MD Work Phone: OB/Gynecology Comment on above: with incon clusive viability, single or unspecified fetus (Primary Dx); Supervision of other high risk pregnancies, first trimester; BMI 40.0-44.9, adult (HCC) Start: 04-01-2023 Telephone encounter Radha Rowell MD Work Phone: OB/Gynecology Comment on above: Insurance Authorizat ion Start: 03-25-2023 Patient requested procedure Radha Rowell MD Work Phone: [facility] Work Phone: Start: 03-11-2023 End: 03-11-[address] [facility] Work Phone: Start: 03-11-2023 End: 03-11-[address] [facility] Start: 03-06-2023 End: 03-06-2023 Patient encounter procedure [facility] hair spinner Off Start: 03-03-2023 End: 03-03-2023 Emergency department patient visit Dr. Magnolia Chen Work Phone: [facility]Emergency Department Start: 02-08-2023 End: 02-08-2023 Patient encounter procedure Meg Bettencourt MD Work Phone: [facility] Comment on above: Gastroenteritis (Aracelis libertad Dx) Start: 11-12-2022 Non-patient / Non-visit No Aracelis libertad Care Physician [facility] Start: 11-12-2022 End: 11-12-2022 Admission to same day surgery center No Primary Care Physician [facility]End[facility] Start: 11-12-2022 End: 11-12-2022 ambulatory No Primary Care Physician [facility] Work Phone: Start: 11-07-2022 End: 11-08-2022 Emergency department patient visit No Primary Care Physician [facility]Emer[facility] Start: 11-02-2022 End: 11-02-2022 Patient encounter procedure No Primary Care Physician [facility] Start: 10-29-2022 End: 10-29-2022 Patient encounter procedure No Primary Care Physician [facility] Start: 10-21-2022 End: 10-21-2022 Emergency department patient visit No Primary Care Physician [facility]Emer[facility] Start: 2022 End: 2022 ambulatory No Primary Care Physician [facility] Work Phone: Start: 2022 End: 2022 Patient encounter procedure No Primary Care Physician [facility] Start: 10-05-2022 End: 10-05-2022 ambulatory No Primary Care Physician [facility] Work Phone: Start: 10-05-2022 End: 10-05-2022 Patient encounter procedure No Primary Care Physician [facility] Start: 10-04-2022 End: 10-04-2022 ambulatory No Primary Care Physician [facility] Work Phone: Start: 10-04-2022 End: 10-04-2022 Patient encounter procedure No Primary Care Physician [facility] Start: 10-01-2022 End: 10-01-2022 Patient encounter procedure No Primary Care Physician [facility] Start: 09-24-2022 Non-patient / Non-visit No Aracelis libertad Care Physician [facility] Start: 09-23-2022 End: 09-24-2022 Evaluation and management of inpatient No Primary Care Physician [facility]Medical Surgical 3 Start: 09-23-2022 Non-patient / Non-visit No [facility] Care Physician [facility] Start: 03-12-2022 End: 03-14-2022 Evaluation and management of inpatient [facility] Start: 03-06-2022 End: 03-06-2022 Patient encounter procedure [facility], Outpatients Start: 02-23-2022 End: 02-23-2022 Patient encounter procedure [facility], Outpatients Start: 02-19-2022 End: 02-19-[address] [facility], Specimen Start: 01-25-2022 End: 01-25-2022 [facility] [place] [facility] Start: 01-18-2022 End: 01-18-2022 Patient encounter procedure [facility], Outpatients Start: 12-28-2021 End: 12-28-2021 Patient encounter procedure [facility], Outpatients Start: 12-26-2021 End: 12-26-2021 [facility] [place] [facility] Start: 12-10-2021 End: 12-10-2021 Patient encounter procedure [facility], Outpatients Start: 11-19-2021 End: 11-20-2021 Patient encounter procedure [facility], Outpatients Start: 03-21-2021 End: 03-21-2021 ambulatory GIUSEPPE CANCINO [facility] Start: 03-12-2021 End: 03-13-2021 Emergency department patient visit COLIN CLEMENTS [facility] Start: 07-15-2018 End: 07-15-2018 Emergency department patient visit Suhas Bojorquez Facility:[facility] Start: 02-12-2018 End: 02-12-2018 Emergency department patient visit Shivain Rowell Facility:[facility] Start: 07-29-2017 End: 07-29-2017 Ambulatory SHIVANI ROWELL [facility] Procedures Date Procedure Procedure Detail Performing Clinician Start: 07-02-2025 Us preg uterus after 1st trimest 1/1st gestation Amberly Sanchez MD Work Phone: Start: 06-21-2025 Urnls dip stick/tablet rgnt auto w/o microscopy Noam Wyman MD Work Phone: Start: 04-28-2025 Antibody screen ISHAAN VASQUEZ Comment on above: Order Comment: Specimen Type: BLOOD SPEC IMENOrdering Facility: [facility] Address: [address] [place] [address] Performed By: #### T SPN ####[facility] BLOOD BANKCLIA [id number] [address] Start: 04-25-2025 Antibody screen ISHAAN VASQUEZ Comment on above: Order Comment: Specimen Type: BLOOD SPEC IMENOrdering Facility: [facility] Address: [address] [place] [address] Performed By: #### T SPN ####[facility] BLOOD BANKIA [id number] [address] Start: 04-08-2025 Urnls dip stick/tablet rgnt auto w/o microscopy Noam Wyman MD Work Phone: Start: 04-08-2025 Us preg uterus after 1st trimest 12/02 gestation Judit Pimentel APRN.DROSSER Work Phone: Start: 02-16-2025 Antibody screen NOAM WYMAN Comment on above: Order Comment: Specimen Type: BLOOD SPEC IMEN Ordering Facility: [facility] Address: [address] [place] [address] Performed By: #### 2 [id number] #### [facility] CLIA [id number] Start: 02-16-2025 Urnls dip stick/tablet rgnt auto w/o microscopy Nighat Maloney APRN.CNM Work Phone: Start: 02-16-2025 Us preg uterus after 1st trimest 12/02 gestation Judit Haury POT HOLDER BINDER.DROSSER Work Phone: Start: 01-21-2025 Urnls dip stick/tablet rgnt auto w/o microscopy Juditcarolyn Marquezmaynor POT HOLDER BINDER.DROSSER Work Phone: Start: 01-21-2025 Us uterus limited 1/> fetuses Judit Pimentel POT HOLDER BINDER.DROSSER Work Phone: Start: 11-30-2024 Urnls dip stick/tablet rgnt auto w/o microscopy Meg Bettencourt MD Work Phone: Start: 03-25-2024 Radiologic exam chest 2 views Nighat gomez POT HOLDER BINDER.DROSSER Work Phone: Start: 03-25-2024 STREP A MOLECULAR (POC) [facility] Provider Start: 10-14-2023 URINE OB DIP B/O Radha Rowell MD Work Phone: Start: 10-07-2023 URINE OB DIP B/O Radha Rowell MD Work Phone: Start: 10-04-2023 URINE OB DIP B/O Nighat Maloney POT HOLDER BINDER.CNM Work Phone: Start: 09-23-2023 URINE OB DIP B/O Radha Rowell MD Work Phone: Start: 09-11-2023 URINE OB DIP B/O Radha Rowell MD Work Phone: Start: 09-11-2023 Us preg uterus after 1st trimest 12/02 gestation Radha Rowell MD Work Phone: Start: 08-17-2023 Urine culture Start: 08-02-2023 URINE OB DIP B/O Radha Rowell MD Work Phone: Start: 07-23-2023 URINE OB DIP B/O Radha Rowell MD Work Phone: Start: 07-11-2023 Urnls dip stick/tablet rgnt auto w/o microscopy Ari Blum POT HOLDER BINDER.CNM Work Phone: Start: 07-11-2023 URINE OB DIP B/O Ari Blum POT HOLDER BINDER.CNM Work Phone: Start: 06-27-2023 URINE OB DIP B/O Radha Rowell MD Work Phone: Start: 06-07-2023 Us preg uterus after 1st trimest 1/ gestation Radha Rowell MD Work Phone: Start: 05-04-2023 CT of lumbar spine Dr. Magnolia Chen Work Phone: Start: 05-04-2023 Computed tomography angiography of abdominal and/or pelvic blood vessel Dr. Magnolia Chen Work Phone: Start: 04-03-[address] Magnolia Chen Work Phone: Start: 04-01-2023 Us uterus limited 1/> fetuses Radha Rowell MD Work Phone: Start: 03-11-[address] Magnolia Chen Work Phone: Start: 03-03-[address] Magnolia Chen Work Phone: Start: 11-12-2022 Esophagogastroduodenoscopy No Primary Ca re Physician Start: 11-07-2022 CT of abdomen and pelvis without contrast No Primary Care Physician Start: 10-05-2022 Computed tomography of abdomen and pelvis with contrast No Primary Care Physician Start: 09-23-2022 Total cholecystectomy and exploration of common bile duct No Primary Care Physician Start: 09-23-2022 Cholangiogram No Primary Care Physician Start: 09-23-2022 Fluoroscopic guidance No Primary Care Physician Start: 09-23-2022 US scan of gallbladder No Primary Care Physician Start: 09-23-2022 Computed tomography of abdomen and pelvis with intravenous contrast No Primary Care Physician Start: 03-12-2022 End: 03-12-2022 Viral antigen assay Start: 02-19-2022 Group B Streptococcus Culture Start: 11-20-2021 Urine culture Start: 03-13-2021 Urinalysis COLIN CLEMENTS Comment on above: Result Comment: URINALYSIS Performed By: #### [id number] #### [facility] [id number] History of cholecystectomy S/P cholecyste ctomy No Primary Care Physician Comment on above: 26-year-old female who presents for firs t postoperative visit following laparoscopic cholecystectomy with intraoperative cholangiogram on 09/23/2022. Pathology was reviewed with patient and consistent with chronic cholecystitis with cholesterolosis. Patient now with progressive abdominal pain and nausea. Overall her laboratories and exam are reassuring. As above I have ordered a CT of the abdomen pelvis with IV contrast to exclude postoperative fluid collection that may suggest a bile leak or abscess. Measurement of occul t blood in stool specimen using immunoassay No Primary Care Physician Measurement of occul t blood in stool specimen using immunoassay Dr. Magnolia Chen Work Phone: Urine culture Urine culture Dr. Magnolia Chen Work Phone: Plan of Treatment Date Care Activity Detail Author Start: 06-03-2035 Urine microalbumin profile DTaP,Tdap,Td Vaccine (9 - Td or Tdap) [facility] Start: 08-02-2033 Urine microalbumin profile [facility] Start: 01-21-2028 Screening for malignant neoplasm of cervix Cervical Cancer Screening [facility] Start: 08-02-2025 Influenza vaccination [facility] Start: 07-30-2025 End: 07-30-2025 Patient encounter procedure 07/30/2025 9:00 AM EDT Routine Office Visit Maternal Medicine [address] [place] [address] Growth Maternal Medicine Comment on above: Growth Start: 07-27-2025 End: 07-27-2025 Patient encounter procedure OB/Gynecology Comment on above: nst /ob OB Start: 07-20-2025 End: 07-20-2025 Patient encounter procedure OB/Gynecology Comment on above: NST ONLY Start: 07-13-2025 End: 07-13-2025 Patient encounter procedure OB/Gynecology Comment on above: NUCHAL NUCHAL/OB Start: 07-06-2025 End: 07-06-2025 Patient encounter procedure OB/Gynecology Comment on above: NST ONLY Start: 07-02-2025 End: 07-02-2026 OBSTETRIC ULTRASOUND WHI OBSTETRIC ULTRASOUND WHI Anc Imaging Routine 32 weeks gestation of (HCC) Obesity affecting in third trimester, unspecified obesity type (HCC) Supervision of high risk in third trimester (HCC) Expected: 07/02/2025, Expires: 07/02/2026 [facility] Work Phone: Comment on above: Expected: 07/02/2025, Expires: Start: 07-02-2025 End: 07-02-2025 Patient encounter procedure Maternal Medicine Comment on above: Growth Growth/OB Start: 06-22-2025 Vital signs measurements [facility] Start: 06-22-2025 [facility] Start: 06-22-2025 Assessment of risk of venous thromboembolism [facility] Start: 06-22-[address] [facility] Start: 06-22-[address] [facility] Start: 06-22-[address] [facility] Start: 06-21-2025 End: 06-22-2025 [facility] Start: 06-21-2025 Application of intermittent pneumatic compression device [facility] Start: 06-21-[address] [facility] Start: 06-16-2025 End: 06-16-2025 Patient encounter procedure 06/16/2025 9:40 AM EDT Routine Office Visit OB/Gynecology [address] [place] [address] Tom Vaz MD [address] [place] [address] OB OB/Gynecology Comment on above: OB Start: 06-14-2025 End: 06-14-2025 Follow-up encounter 06/14/2025 11:[address] [facility] Endocrinology [address] [place] [address] Alesia Mallory MD [address] [facility] [place] [address] 4 week follow up/hypothyroid during Endocrinology Comment on above: 4 week follow up/hypothyroid during preg lety Start: 06-11-2025 End: 09-10-2025 Thyrotropin [Units/volume] in Serum or Plasma THYROID STIMULATING HORMONE Lab Routine Elevated TSH 24 weeks gestation of (HCC) Expected: 06/11/2025, Expires: 09/10/2025 [facility] Work Phone: Comment on above: Expected: 06/11/2025, Expires: Start: 06-11-2025 End: 09-10-2025 Thyroxine (T4) free [Mass/volume] in Serum or Plasma T4 FREE/FREE THYROXINE Lab Routine Elevated TSH 24 weeks gestation of (HCC) Expected: 06/11/2025, Expires: 09/10/2025 [facility] Comment on above: Expected: 06/11/2025, Expires: Start: 06-11-2025 End: 06-11-2025 ambulatory 06/11/2025 10:00 AM EDT Results Only [facility] [address] [place] [address] [facility] Start: 06-08-2025 End: 06-08-2025 ambulatory 06/08/2025 9:45 AM EDT Results Only [place] [facility] [address] [place] [address] Elevated glucose tolerance test [R73.09 [facility] Comment on above: Elevated glucose tolerance test [R73.09 Start: 06-03-2025 End: 06-03-2026 OBSTETRIC ULTRASOUND WHI OBSTETRIC ULTRASOUND WHI Anc Imaging Routine Obesity affecting in third trimester, unspecified obesity type (HCC) Expected: 06/03/2025, Expires: 06/03/2026 [facility] Work Phone: Comment on above: Expected: 06/03/2025, Expires: Start: 06-03-2025 End: 06-03-2025 Patient encounter procedure 06/03/2025 10:20 AM EDT Routine Office Visit OB/Gynecology [address] [place] [address] Amberly Sanchez MD [address] [place] [address] OB OB/Gynecology Comment on above: OB Start: 06-03-2025 End: 06-03-2025 ambulatory 06/03/2025 10:00 AM EDT Results Only [place] [facility] [address] [place] [address] Glucose Test [facility] Comment on above: Glucose Test Start: 05-06-2025 End: 08-05-2025 ANEMIA REFLEX PANEL ANEMIA REFLEX PANEL Lab Routine Encounter for supervision of high risk in second trimester, antepartum (HCC) Expected: 05/06/2025, Expires: 08/05/2025 [facility] Comment on above: Expected: 05/06/2025, Expires: Start: 05-06-2025 End: 08-05-2025 BILE ACIDS, TOTAL [facility] Comment on above: Expected: 05/06/2025, Expires: Start: 05-06-2025 End: 05-06-2026 GESTATIONAL GLUCOSE SCREEN, 1-HOUR, 50 GRAM, NON-FASTING GESTATIONAL GLUCOSE SCREEN, 1-HOUR, 50 GRAM, NON-FASTING Lab Routine Screening for diabetes mellitus Expected: 05/06/2025, Expires: 05/06/2026 [facility] Comment on above: Expected: 05/06/2025, Expires: Start: 05-06-2025 End: 05-06-2026 SYPHILIS TREPONEMAL W/REFLEX SYPHILIS TREPONEMAL W/REFLEX Lab Routine Encounter for supervision of high risk in second trimester, antepartum (HCC) Expected: 05/06/2025, Expires: 05/06/2026 [facility] Comment on above: Expected: 05/06/2025, Expires: Start: 05-06-2025 End: 08-05-2025 Thyrotropin [Units/volume] in Serum or Plasma [facility] Work Phone: Comment on above: Expected: 05/06/2025, Expires: Start: 05-06-2025 End: 08-05-2025 Thyroxine (T4) free [Mass/volume] in Serum or Plasma [facility] Comment on above: Expected: 05/06/2025, Expires: Start: 05-06-2025 End: 05-06-2025 Patient encounter procedure 05/06/2025 8:00 AM EDT Routine Office Visit OB/Gynecology [address] [place] [address] Judit Pimentel, [employer]DR[employer] [address] [place] [address] 4week ob OB/Gynecology Comment on above: 4week ob Start: 04-08-2025 End: 04-08-2025 Patient encounter procedure Maternal Medicine Comment on above: Anatomy Anatomy/OB Start: 03-16-2025 End: 06-15-2025 Thyrotropin [Units/volume] in Serum or Plasma THYROID STIMULATING HORMONE Lab Routine Encounter for supervision of high risk in first trimester, antepartum (HCC) Hypothyroidism affecting in first trimester (HCC) Expected: 03/16/2025, Expires: 06/15/2025 [facility] Work Phone: Comment on above: Expected: 03/16/2025, Expires: Start: 03-16-2025 End: 06-15-2025 Thyroxine (T4) free [Mass/volume] in Serum or Plasma T4 FREE/FREE THYROXINE Lab Routine Encounter for supervision of high risk in first trimester, antepartum (HCC) Hypothyroidism affecting in first trimester (HCC) Expected: 03/16/2025, Expires: 06/15/2025 [facility] Comment on above: Expected: 03/16/2025, Expires: Start: 03-16-2025 End: 03-16-2025 Patient encounter procedure 03/16/2025 8:00 AM EDT Routine Office Visit OB/Gynecology [address] [place] [address] Nighat Maloney APRN.CNM [address] [place] [address] OB OB/Gynecology Comment on above: OB Start: 02-16-2025 End: 05-18-2025 Chromosome 21 trisomy [Presence] in Blood or Tissue by Cytogenetics [facility] Work Phone: Comment on above: Expected: 02/16/2025, Expires: Start: 02-16-2025 End: 02-16-2025 Patient encounter procedure Maternal Medicine Comment on above: Nuchal Nuchal /OB Start: 02-03-2025 End: 02-03-2025 ambulatory 02/03/2025 11:[address] [facility] OB/Gynecology [address] [place] [address] Radha Rowell MD [address] [place] [id number] VV WITH Dr. SORIN AJ TUBAL LIGATION OB/Gynecology Comment on above: VV WITH Dr. SORIN AJ TUBAL LIGATION Start: 02-03-2025 End: 02-03-2025 Patient encounter procedure 02/03/2025 11:30 AM EST Office Visit OB/Gynecology [address] [place] [address] Radha Rowell MD [address] [place] [address] Discuss Tubal Ligation, will need to sign Title 19 OB/Gynecology Comment on above: Discuss Tubal Ligation, will need to sig n Title 19 Start: 01-22-2025 End: 01-22-2025 ambulatory 01/22/2025 11:30 AM EST Results Only [place] [facility] [address] [place] [address] [facility] Start: 01-21-2025 End: 04-22-2025 ANEMIA REFLEX PANEL ANEMIA REFLEX PANEL Lab Routine with uncertain dates in first trimester Encounter for supervision of high risk in first trimester, antepartum Obesity affecting in first trimester, unspecified obesity type History of miscarriage Depression affecting Family history of defect Expected: 01/21/2025, Expires: 04/22/2025 [facility] Work Phone: Comment on above: Expected: 01/21/2025, Expires: Start: 01-21-2025 End: 04-22-2025 Comprehensive metabolic 2000 panel - Serum or Plasma COMPREHENSIVE METABOLIC PANEL Lab Routine Dizziness Expected: 01/21/2025, Expires: 04/22/2025 [facility] Comment on above: Expected: 01/21/2025, Expires: Start: 01-21-2025 End: 04-22-2025 Hemoglobin A1c in Blood HEMOGLOBIN A1C Lab Routine with uncertain dates in first trimester Encounter for supervision of high risk in first trimester, antepartum Obesity affecting in first trimester, unspecified obesity type History of miscarriage Depression affecting Family history of defect Expected: 01/21/2025, Expires: 04/22/2025 [facility] Comment on above: Expected: 01/21/2025, Expires: Start: 01-21-2025 End: 04-22-2025 Hepatitis B virus surface Ag [Presence] in Serum HEPATITIS B SURFACE ANTIGEN Lab Routine with uncertain dates in first trimester Encounter for supervision of high risk in first trimester, antepartum Obesity affecting in first trimester, unspecified obesity type History of miscarriage Depression affecting Family history of defect Expected: 01/21/2025, Expires: 04/22/2025 [facility] Comment on above: Expected: 01/21/2025, Expires: Start: 01-21-2025 End: 04-22-2025 Hepatitis C virus Ab [Presence] in Serum HEPATITIS C ANTIBODY IA WITH CONFIRMATION Lab Routine with uncertain dates in first trimester Encounter for supervision of high risk in first trimester, antepartum Obesity affecting in first trimester, unspecified obesity type History of miscarriage Depression affecting Family history of defect Expected: 01/21/2025, Expires: 04/22/2025 [facility] Comment on above: Expected: 01/21/2025, Expires: Start: 01-21-2025 End: 04-22-2025 HIV 1+2 Ab [Presence] in Serum or Plasma by Immunoassay HIV 1/2 COMBO WITH REFLEX TO DIFFERENTIATION Lab Routine with uncertain dates in first trimester Encounter for supervision of high risk in first trimester, antepartum Obesity affecting in first trimester, unspecified obesity type History of miscarriage Depression affecting Family history of defect Expected: 01/21/2025, Expires: 04/22/2025 [facility] Comment on above: Expected: 01/21/2025, Expires: Start: 01-21-2025 End: 01-21-2026 OBSTETRIC ULTRASOUND WHI OBSTETRIC ULTRASOUND WHI Anc Imaging Routine with uncertain dates in first trimester Encounter for supervision of high risk in first trimester, antepartum Obesity affecting in first trimester, unspecified obesity type History of miscarriage Depression affecting Family history of defect Expected: 01/21/2025, Expires: 01/21/2026 [facility] Comment on above: Expected: 01/21/2025, Expires: Start: 01-21-2025 End: 04-22-2025 RUBELLA IGG ANTIBODY RUBELLA IGG ANTIBODY Lab Routine with uncertain dates in first trimester Encounter for supervision of high risk in first trimester, antepartum Obesity affecting in first trimester, unspecified obesity type History of miscarriage Depression affecting Family history of defect Expected: 01/21/2025, Expires: 04/22/2025 [facility] Comment on above: Expected: 01/21/2025, Expires: Start: 01-21-2025 End: 04-22-2025 SYPHILIS TREPONEMAL W/REFLEX SYPHILIS TREPONEMAL W/REFLEX Lab Routine with uncertain dates in first trimester Encounter for supervision of high risk in first trimester, antepartum Obesity affecting in first trimester, unspecified obesity type History of miscarriage Depression affecting Family history of defect Expected: 01/21/2025, Expires: 04/22/2025 [facility] Comment on above: Expected: 01/21/2025, Expires: Start: 01-21-2025 End: 04-22-2025 Thyrotropin [Units/volume] in Serum or Plasma THYROID STIMULATING HORMONE Lab Routine Hypothyroidism affecting in first trimester Expected: 01/21/2025, Expires: 04/22/2025 [facility] Comment on above: Expected: 01/21/2025, Expires: Start: 01-21-2025 End: 04-22-2025 Thyroxine (T4) free [Mass/volume] in Serum or Plasma T4 FREE/FREE THYROXINE Lab Routine Hypothyroidism affecting in first trimester Expected: 01/21/2025, Expires: 04/22/2025 [facility] Comment on above: Expected: 01/21/2025, Expires: Start: 01-21-2025 End: 04-22-2025 TYPE + SCREEN TYPE + SCREEN Blood Bank Routine with uncertain dates in first trimester Encounter for supervision of high risk in first trimester, antepartum Obesity affecting in first trimester, unspecified obesity type History of miscarriage Depression affecting Family history of defect Expected: 01/21/2025, Expires: 04/22/2025 [facility] Comment on above: Expected: 01/21/2025, Expires: Start: 08-02-2024 Covid-19 Vaccine ( season) Covid-19 Vaccine ( season) [facility] Start: 08-02-2024 Covid-19 Vaccine ( season) Covid-19 Vaccine ( season) [facility] Start: 08-02-2024 Influenza vaccination [facility] Start: 03-25-2024 End: 04-08-2024 COVID & INFLUENZA A/B & RSV NAAT, ROUTINE COVID & INFLUENZA A/B & RSV NAAT, ROUTINE Microbiology Routine URI, acute Acute cough Expected: 03/25/2024, Expires: 04/08/2024 [facility] Work Phone: Comment on above: Expected: 03/25/2024, Expires: Start: 12-02-2023 Behavioral Health Screening Behavioral Health Screening [facility] Start: 10-17-[address] [facility] Start: 10-15-[address] [facility] Start: 10-15-2023 Application of ice collar, cap or bag [facility] Start: 10-15-2023 Catheterization of vein [facility] Start: 10-15-2023 Introduction of urinary catheter [facility] Start: 10-15-2023 Measuring intake and output [facility] Start: 10-15-2023 Notification of physician [facility] Start: 10-15-[address] [facility] Start: 10-15-2023 Provision of activity privileges [facility] Start: 10-15-2023 Vital signs measurements [facility] Start: 10-15-2023 [facility] Start: 10-15-[address] [facility] Start: 10-10-[address] [facility] Start: 10-10-[address] [facility] Start: 10-10-2023 Vital signs measurements [facility] Start: 10-10-2023 [facility] Start: 10-10-[address] [facility] Start: 09-22-[address] [facility] Start: 09-22-[address] [facility] Start: 09-22-2023 Vital signs measurements [facility] Start: 09-22-2023 [facility] Start: 09-22-[address] [facility] Start: 08-17-2023 End: 08-17-2023 [facility] Start: 08-17-[address] [facility] Start: 08-17-[address] [facility] Start: 08-17-2023 Vital signs measurements [facility] Start: 08-17-2023 Bacteria identified in Urine by Culture Urine Culture [facility] Start: 08-17-[address] [facility] Start: 08-02-2023 Covid-19 Vaccine () Covid-19 Vaccine () [facility] Start: 08-02-2023 Influenza vaccination [facility] Start: 07-23-2023 End: 09-22-2023 BILE ACIDS FRACT BLD [facility] Work Phone: Comment on above: Expected: 07/23/2023, Expires: Start: 07-21-[address] [facility] Start: 07-21-[address] [facility] Start: 07-21-2023 Vital signs measurements [facility] Start: 07-21-2023 [facility] Start: 07-12-2023 End: 09-11-2023 Protein/Creatinine [Mass Ratio] in Urine PROTEIN CREATININE RATIO Lab Routine Gestational proteinuria in second trimester Expected: 07/12/2023, Expires: 09/11/2023 [facility] Work Phone: Comment on above: Expected: 07/12/2023, Expires: 3 Start: 07-11-2023 End: 09-10-2023 Amylase [Enzymatic activity/volume] in Serum or Plasma [facility] Work Phone: Comment on above: Expected: 07/11/2023, Expires: 3 Start: 07-11-2023 End: 09-10-2023 BILE ACIDS FRACT BLD [facility] Work Phone: Comment on above: Expected: 07/11/2023, Expires: 3 Start: 07-11-2023 End: 09-10-2023 Lipase [Enzymatic activity/volume] in Serum or Plasma [facility] Work Phone: Comment on above: Expected: 07/11/2023, Expires: 3 Start: 06-27-2023 End: 08-27-2023 CBC W Auto Differential panel - Blood CBC + DIFF Lab Routine Supervision of high risk in second trimester 22 weeks gestation of Expected: 06/27/2023, Expires: 08/27/2023 [facility] Work Phone: Comment on above: Expected: 06/27/2023, Expires: 3 Start: 06-27-2023 End: 08-27-2023 GEST GLUC SCREEN, 1-HR, 50 GM, NON-FASTING GEST GLUC SCREEN, 1-HR, 50 GM, NON-FASTING Lab Routine Supervision of high risk in second trimester 22 weeks gestation of Expected: 06/27/2023, Expires: 08/27/2023 [facility] Work Phone: Comment on above: Expected: 06/27/2023, Expires: 3 Start: 06-27-2023 End: 08-27-2023 SYPHILIS TOTAL W/REFLEX SYPHILIS TOTAL W/REFLEX Lab Routine Supervision of high risk in second trimester 22 weeks gestation of Expected: 06/27/2023, Expires: 08/27/2023 [facility] Work Phone: Comment on above: Expected: 06/27/2023, Expires: 3 Start: 04-03-2023 [facility] Start: 03-03-[address] [facility] Start: 12-02-2022 DEPRESSION ASSESSMENT DEPRESSION ASSESSMENT [facility] Start: 11-12-2022 Egd transoral biopsy single/multiple EGD BIOPSY SINGLE/MULTIPLE [facility] Start: 11-12-[address] [facility] Start: 10-01-[address] [facility] Work Phone: Start: 09-24-[address] [facility] Work Phone: Start: 09-24-[address] [facility] Work Phone: Start: 09-24-2022 [facility] Work Phone: Start: 09-23-2022 Application of intermittent pneumatic compression device [facility] Work Phone: Start: 09-23-2022 Cholangiogram Cholangiogram/ O R,Initial [facility] Work Phone: Start: 09-23-2022 Fluoroscopic guidance O.R. Fluoro for C-Arm [facility] Work Phone: Start: 09-23-2022 End: 09-23-2022 Following clinical pathway protocol [facility] Work Phone: Start: 09-23-[address] [facility] Work Phone: Start: 09-23-2022 [facility] Work Phone: Start: 09-23-[address] [facility] Work Phone: Start: 09-23-2022 Following clinical pathway protocol [facility] Work Phone: Start: 02-19-2022 Group B Streptococcus Culture Group B Streptococcus Culture [facility] Work Phone: Start: 2018 PAP TESTING PAP TESTING [facility] Start: 2018 Screening for malignant neoplasm of cervix [facility] Start: 2016 Urine microalbumin profile DTAP,TDAP,TD (1 - Tdap) [facility] Start: 2015 Annual PCP Team Chronic Disease Visit Annual PCP Team Chronic Disease Visit [facility] Start: 2015 Anxiety Screening Anxiety Screening [facility] Start: 2015 Depression Screening Depression Screening [facility] Start: 2015 HEPATITIS C SCREENING HEPATITIS C SCREENING [facility] Start: 2015 HIV SCREENING HIV SCREENING [facility] Start: 2011 PEDS TO ADULT TRANSITION ANNUAL ASSESSMENT PEDS TO ADULT TRANSITION ANNUAL ASSESSMENT [facility] Start: 2009 PEDS TO ADULT TRANSITION INITIAL DISCUSSION PEDS TO ADULT TRANSITION INITIAL DISCUSSION [facility] Start: 2008 HPV VACCINE (1 - 2-dose series) HPV VACCINE (1 - 2-dose series) [facility] Start: 2006 HPV VACCINE (1 - 2-dose series) HPV VACCINE (1 - 2-dose series) [facility] Start: 2003 PNEUMOCOCCAL (1 - PCV) PNEUMOCOCCAL (1 - PCV) [facility] Start: 04-15-1998 COVID-19 VACCINE (#1) COVID-19 VACCINE (#1) [facility] Start: 1997 HEPATITIS B (1 of 3 - 3-dose series) HEPATITIS B (1 of 3 - 3-dose series) [facility] Alanine aminotransfe rase [Enzymatic activity/volume] in Serum or Plasma [facility] Work Phone: Albumin [Mass/volume ] in Serum or Plasma [facility] Work Phone: Alkaline phosphatase [Enzymatic activity/volume] in Serum or Plasma [facility] Work Phone: Anion gap measurement [facility] Work Phone: Aspartate aminotransferase [Enzymatic activity/volume] in Serum or Plasma [facility] Work Phone: Bacteria identified in Urine by Culture URINE CULTURE Microbiology Routine Vaginal burning Vaginal discharge during in second trimester 07/11/2023 12:59 PM [facility] Work Phone: Bacteria identified in Urine by Culture URINE CULTURE Microbiology Routine Maternal obesity syndrome in third trimester Supervision of high risk in third trimester 33 weeks gestation of 09/11/2023 10:57 AM [facility] Work Phone: Bacteria identified in Urine by Culture BACTERIAL CULTURE, URINE Microbiology Routine with uncertain dates in first trimester Encounter for supervision of high risk in first trimester, antepartum Obesity affecting in first trimester, unspecified obesity type History of miscarriage Depression affecting Family history of defect 01/21/2025 10:18 AM [facility] Bacteria identified in Urine by Culture BACTERIAL CULTURE, URINE Microbiology Routine 02/16/2025 9:43 AM [facility] Bacteria identified in Urine by Culture BACTERIAL CULTURE, URINE Microbiology Routine Dysuria 04/08/2025 9:10 AM [facility] Work Phone: Bacteria identified in Urine by Culture BACTERIAL CULTURE, URINE Microbiology Routine Pyelonephritis complicating , antepartum ([facility]) 04/14/2025 2:04 PM [facility] Work Phone: Bacteria identified in Urine by Culture BACTERIAL CULTURE, URINE Microbiology Routine 24 weeks gestation of ([facility]) Pyelonephritis complicating , antepartum ([facility]) 05/06/2025 8:37 AM [facility] Bacteria identified in Urine by Culture BACTERIAL CULTURE, URINE Microbiology Routine Dysuria 06/21/2025 2:37 PM [facility] Work Phone: Bacteria identified in Urine by Culture BACTERIAL CULTURE, URINE Microbiology Routine UTI (urinary tract infection) in , antepartum ([facility]) 07/13/2025 9:37 AM [facility] Work Phone: Bilirubin, total measurement [facility] Work Phone: BUN/Creatinine ratio [facility] Work Phone: Calcium [Mass/volume ] in Serum or Plasma [facility] Work Phone: Carbon dioxide, tota l [Moles/volume] in Serum or Plasma [facility] Work Phone: Chlamydia trachomatis+Neisseria gonorrhoeae DNA [Presence] in Unspecified specimen by KOLE with probe detection GONORRHEA/CHLAMYDIA NAAT Lab Routine with uncertain dates in first trimester Encounter for supervision of high risk in first trimester, antepartum Obesity affecting in first trimester, unspecified obesity type History of miscarriage Depression affecting Family history of defect Screen for STD (sexually transmitted disease) 01/21/2025 10:18 AM EST [facility] Chloride [Moles/volu me] in Serum or Plasma [facility] Work Phone: Creatinine [Moles/vo lume] in Serum or Plasma [facility] Work Phone: End: 11-10-2023 nonstress test NON-STRESS TEST Procedures Routine Maternal obesity syndrome in third trimester Supervision of high risk in third trimester Once per week for 6 Occurrences starting 09/11/2023 until 11/10/2023 [facility] Work Phone: Comment on above: Once per week for 6 Occurrences starting 09/11/2023 until 11/10/2023 End: 08-24-2025 nonstress test NON-STRESS TEST Procedures Routine Obesity affecting in third trimester, unspecified obesity type (HCC) Decreased movements in third trimester, single or unspecified fetus (HCC) Once per week for 8 Occurrences starting 06/16/2025 until 08/24/2025 [facility] Work Phone: Comment on above: Once per week for 8 Occurrences starting 06/16/2025 until 08/24/2025 Glucose [Mass/volume ] in Serum or Plasma [facility] Work Phone: Hematocrit [Volume Fraction] of Blood [facility] Work Phone: Hemoglobin [Mass/vol ume] in Blood [facility] Work Phone: Leukocytes [#/volume ] in Blood [facility] Work Phone: Lipid 1996 panel - S mahi or Plasma [facility] Work Phone: Mean corpuscular hemoglobin concentration determination [facility] Work Phone: Mean corpuscular hemoglobin determination [facility] Work Phone: Measurement of renal function [facility] Work Phone: Microscopic observat ion [Identifier] in Vaginal fluid by Gram stain BACT/JOHN VAG GRAM STAIN Microbiology Routine Vaginal burning Vaginal discharge during in second trimester 07/11/2023 12:16 PM EDT [facility] Work Phone: Neutrophil count [facility] Work Phone: Neutrophil percent differential count [facility] Work Phone: End: 10-31-2023 OBSTETRIC ULTRASOUND WHI OBSTETRIC ULTRASOUND I [facility] Routine Supervision of high risk in second trimester Maternal obesity syndrome in third trimester BMI 39.0-39.9,adult Once per month for 2 Occurrences starting 08/02/2023 until 10/31/2023 [facility] Work Phone: Comment on above: Once per month for 2 Occurrences startin g 08/02/2023 until 10/31/2023 PAP TEST PAP TEST Lab Dorene rob with uncertain dates in first trimester Encounter for supervision of high risk in first trimester, antepartum Obesity affecting in first trimester, unspecified obesity type History of miscarriage Depression affecting Family history of defect Screening for cervical cancer 01/21/2025 10:18 AM EST [facility] Patient Education [facility] Work Phone: Patient referral [facility] Work Phone: Platelets [#/volume] in Blood [facility] Work Phone: Polysomnography [facility] Work Phone: Potassium [Moles/vol ume] in Serum or Plasma [facility] Work Phone: Red blood cell count [facility] Work Phone: Red cell distributio n width determination [facility] Work Phone: ROUTINE, GR OUP B STREP PCR ROUTINE, GROUP B STREP PCR Microbiology Routine Obesity affecting , antepartum, unspecified obesity type Supervision of high risk in third trimester UTI (urinary tract infection) during , third trimester 35 weeks gestation of 10/01/2023 11:38 AM EDT [facility] Work Phone: Sodium [Moles/volume ] in Serum or Plasma [facility] Work Phone: Total protein measurement [facility] Work Phone: TRICHOMONAS VAGINALI S NAAT TRICHOMONAS VAGINALIS NAAT Lab Routine Screen for STD (sexually transmitted disease) 01/21/2025 10:18 AM EST [facility] UA DIP, URINE (POC) UA DIP, URIN E (POC) Lab Routine Ordered: 01/21/2025 [facility] Comment on above: Ordered: 01/21/2025 Urea nitrogen [Mass/volume] in Serum or Plasma [facility] Work Phone: URINE OB DIP B/O URINE OB DIP B/ O Lab Routine Obesity affecting , antepartum, unspecified obesity type Supervision of high risk in third trimester UTI (urinary tract infection) during , third trimester 35 weeks gestation of Ordered: 10/01/2023 [facility] Work Phone: Comment on above: Ordered: 10/01/2023 Vitamin D, 25-hydrox y measurement [facility] Work Phone: [facility] Immunizations Immunization Date Immunization Notes Care Provider [facility] 06-03-2025 tetanus toxoid, redu giovana diphtheria toxoid, and acellular pertussis vaccine, adsorbed Amberly Sanchez MD Work Phone: [facility] 08-02-2023 tetanus toxoid, redu giovana diphtheria toxoid, and acellular pertussis vaccine, adsorbed Radha Rowell MD Work Phone: [facility] 09-24-2022 influenza, injectabl e, quadrivalent, preservative free [facility] 09-24-2022 influenza, seasonal, injectable No Primary Care Physician [facility] 09-24-2022 influenza virus vacc ine, unspecified formulation Radha Rowell MD Work Phone: [facility] 07-27-2016 hepatitis A vaccine, adult dosage No Primary Care Physician [facility] 07-27-2016 hepatitis A vaccine, pediatric/adolescent dosage, 2 dose schedule Radha Rowell MD Work Phone: [facility] 07-26-2015 HPV, unspecified formulation Radha Rowell MD Work Phone: [facility] 07-26-2015 human papilloma viru s vaccine, quadrivalent No Primary Care Physician [facility] 07-26-2015 meningococcal polysaccharide (groups A, C, Y and W-135) diphtheria toxoid conjugate vaccine (MCV4P) No Primary Care Physician [facility] 10-14-2014 influenza, injectabl e, quadrivalent, preservative free Radha Rowell MD Work Phone: [facility] 10-14-2014 influenza, seasonal, injectable No Primary Care Physician [facility] 09-18-2012 influenza, injectabl e, quadrivalent, preservative free [facility] 09-18-2012 influenza, seasonal, injectable No Primary Care Physician [facility] 09-18-2012 influenza, seasonal, injectable, preservative free Radha Rowell MD Work Phone: [facility] 10-08-2011 human papilloma viru s vaccine, quadrivalent No Primary Care Physician [facility] 10-08-2011 influenza, injectabl e, quadrivalent, preservative free [facility] 10-08-2011 influenza, seasonal, injectable No Primary Care Physician [facility] 10-08-2011 influenza, seasonal, injectable, preservative free Radha Rowell MD Work Phone: [facility] 10-08-2011 meningococcal polysaccharide (groups A, C, Y and W-135) diphtheria toxoid conjugate vaccine (MCV4P) No Primary Care Physician [facility] 02-02-2010 human papilloma viru s vaccine, quadrivalent No Primary Care Physician [facility] 02-02-2010 tetanus toxoid, redu giovana diphtheria toxoid, and acellular pertussis vaccine, adsorbed No Primary Care Physician [facility] 10-21-2009 influenza virus vacc ine, live, attenuated, for intranasal use No Primary Care Physician [facility] 10-21-2009 novel influenza-H1N1 -09, preservative-free, injectable No Primary Care Physician [facility] 10-09-2008 influenza virus vacc ine, live, attenuated, for intranasal use No Primary Care Physician [facility] 10-17-2006 influenza virus vacc ine, whole virus Radha Rowell MD Work Phone: [facility] 10-17-2006 influenza, injectabl e, quadrivalent, preservative free [facility] 10-17-2006 influenza, seasonal, injectable No Primary Care Physician [facility] 11-03-2003 influenza virus vacc ine, whole virus Radha Rowell MD Work Phone: [facility] 11-03-2003 influenza, injectabl e, quadrivalent, preservative free [facility] 11-03-2003 influenza, seasonal, injectable No Primary Care Physician [facility] 03-10-2003 diphtheria, tetanus toxoids and acellular pertussis vaccine No Primary Care Physician [facility] 03-10-2003 diphtheria, tetanus toxoids and acellular pertussis vaccine, unspecified formulation Radha Rowell MD Work Phone: [facility] 03-10-2003 measles, mumps and rubella virus vaccine No Primary Care Physician [facility] 03-10-2003 poliovirus vaccine, inactivated No Primary Care Physician [facility] 03-13-2000 diphtheria, tetanus toxoids and acellular pertussis vaccine Radha Rowell MD Work Phone: [facility] 03-13-2000 DTaP-hepatitis B and poliovirus vaccine No Primary Care Physician [facility] 03-13-2000 haemophilus influenz ae type b vaccine, PRP-T conjugate No Primary Care Physician [facility] 10-21-1998 measles, mumps and rubella virus vaccine Radha Rowell MD Work Phone: [facility] 10-21-1998 measles, mumps, rube lla, and varicella virus vaccine No Primary Care Physician [facility] 10-21-1998 varicella virus vaccine Jacqui Rowell MD Work Phone: [facility] 04-28-1998 diphtheria, tetanus toxoids and acellular pertussis vaccine Radha Rowell MD Work Phone: [facility] 04-28-1998 DTaP-hepatitis B and poliovirus vaccine No Primary Care Physician [facility] 04-28-1998 haemophilus influenz ae type b vaccine, PRP-T conjugate No Primary Care Physician [facility] 04-28-1998 hepatitis B vaccine, pediatric or pediatric/adolescent dosage Radha Rowell MD Work Phone: [facility] 04-28-1998 poliovirus vaccine, inactivated Radha Rowell MD Work Phone: [facility] 02-17-1998 diphtheria, tetanus toxoids and acellular pertussis vaccine Radha Rowell MD Work Phone: [facility] 02-17-1998 DTaP-hepatitis B and poliovirus vaccine No Primary Care Physician [facility] 02-17-1998 haemophilus influenz ae type b vaccine, PRP-T conjugate No Primary Care Physician [facility] 02-17-1998 poliovirus vaccine, inactivated Radha Rowell MD Work Phone: [facility] 1997 diphtheria, tetanus toxoids and acellular pertussis vaccine Radha Rowell MD Work Phone: [facility] 1997 DTaP-hepatitis B and poliovirus vaccine No Primary Care Physician [facility] 1997 haemophilus influenz ae type b vaccine, PRP-T conjugate No Primary Care Physician [facility] 1997 poliovirus vaccine, inactivated Radha Rowell MD Work Phone: [facility] 1997 hepatitis B vaccine, pediatric or pediatric/adolescent dosage No Primary Care Physician [facility] 1997 hepatitis B vaccine, pediatric or pediatric/adolescent dosage No Primary Care Physician [facility] Payers Date Payer Category Payer Self-pay [id number] 2024 Private Health Insurance MMO SUP [employer] PPO Member Subscriber Plan / Payer (Effective 2024-Present) Name: Yokasta Pretty Relation to Subscriber: Self Name: Yokasta Pretty Payer ID: Not on file Type: PPO Address: [place] [id number] 2024 Unknown [id number] 2023 Medicaid [id number] 2018 Unknown 2014 Medicaid [id number] 2014 Unknown [id number] 1997 Unknown [id number] 1997 Unknown [id number] Unknown [id number] Unknown [id number] Unknown [id number] Unknown [id number] Unknown [id number] Unknown [id number] Unknown [id number] Social History Date Type Detail Facility Start: 08-20-2021 End: 10-15-2023 Tobacco smoking status MEIS Unknown if ever smoked [facility] Start: 1995 Sex Assigned At Female W [facility] Start: 02-08-2023 End: 11-30-2024 Tobacco smoking status NHIS Smokes tobacco daily [facility] Start: 02-08-2023 [facility] Start: 02-08-2023 Tobacco Comment mother smokes [facility] Start: 1995 Sex Assigned At Not on file [facility] Start: 02-06-2023 [facility] Start: 03-25-2023 End: 11-30-2024 Tobacco smoking status NHIS Ex-smoker [facility] Work Phone: Start: 04-08-2015 End: 04-08-2020 History of tobacco use Current smoker [facility] Work Phone: Start: 04-08-2015 End: 04-08-2020 History of tobacco use Cigarette Smoker [facility] Work Phone: Start: 03-25-2023 End: 11-30-2024 Tobacco use and exposure Smokeless tobacco non-user [facility] Work Phone: Start: 04-01-2023 End: 07-02-2025 Alcohol intake Ex-drinker (finding) [facility] Start: 03-25-2023 Education 21 [facility] Start: 03-25-2023 Alcohol Comment Socially [facility] Start: 05-29-2023 End: 11-06-2024 History of Social function [facility] Start: 05-29-2023 End: 11-06-2024 Tobacco use panel [facility] Start: 11-02-2012 National Score (1-100), lower number is lower risk 66 [facility] Start: 11-01-2024 Gender identity Identifies as female gender (finding) [facility] Start: 01-20-2025 Sexual orientation Bisexual (finding ) [facility] NEGATED: Highlighted row [facility] Medical Equipment Procedure Code Equipment Code Equipment Original Text Equipment Identifier Dates Total cholecystectomy with exploration of common bile duct Open-surgery ligation 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 [id number] FDA Start: 09-23-2022 Goals Date Patient Goal Desired Activity /State Personal health goal Functional Status Date Assessment Result Facility 04-28-2025 Are you deaf, or do you have serious difficulty hearing No 04/28/2025 9:38 AM Gabriella Bird RN No [facility] 04-28-2025 Are you blind, or do you have serious difficulty seeing, even when wearing glasses No 04/28/2025 9:38 AM Gabriella Bird RN No [facility] 04-28-2025 Do you have serious difficulty walking or climbing stairs No 04/28/2025 9:38 AM Gabriella Bird RN No [facility] 04-28-2025 Do you have difficul ty dressing or bathing No 04/28/2025 9:38 AM Gabriella Bird RN [facility] 04-28-2025 Because of a physica l, mental, or emotional condition, do you have difficulty doing errands alone such as visiting a physician's office or shopping No 04/28/2025 9:38 AM Gabriella Bird RN [facility] 04-11-2025 Are you deaf, or do you have serious difficulty hearing No 04/11/2025 9:12 AM Mango Melendrez RN [facility] 04-11-2025 Are you blind, or do you have serious difficulty seeing, even when wearing glasses No 04/11/2025 9:12 AM Mango Melendrez RN [facility] 04-11-2025 Do you have serious difficulty walking or climbing stairs No 04/11/2025 9:12 AM Mango Melendrez RN [facility] 04-11-2025 Do you have difficul ty dressing or bathing No 04/11/2025 9:12 AM Mango Melendrez RN [facility] 04-11-2025 Because of a physica l, mental, or emotional condition, do you have difficulty doing errands alone such as visiting a physician's office or shopping No 04/11/2025 9:12 AM Mango Melendrez RN [facility] 10-15-2023 Functional status Activity Abili ty Standby Assist [facility] Work Phone: 09-24-2022 Functional status Ambulates [facility] Work Phone: 03-28-2015 Are you deaf, or do you have serious difficulty hearing No 03/28/2015 11:57 AM DARRIANT Giuseppe Hanna MA No [facility] 03-28-2015 Are you blind, or do you have serious difficulty seeing, even when wearing glasses No 03/28/2015 11:57 AM EDT Giuseppe Hanna MA No [facility] 03-28-2015 Do you have serious difficulty walking or climbing stairs No 03/28/2015 11:57 AM EDT Giuseppe Hanna MA No [facility] 03-28-2015 Do you have difficul ty dressing or bathing No 03/28/2015 11:57 AM DARRIANT Giuseppe Hanna MA [facility] 03-28-2015 Because of a physica l, mental, or emotional condition, do you have difficulty doing errands alone such as visiting a physician's office or shopping No 03/28/2015 11:57 AM Giuseppe Hendrix MA [facility] Mental Status Date Assessment Result Facility 04-28-2025 Because of a physica l, mental, or emotional condition, do you have serious difficulty concentrating, remembering, or making decisions No 04/28/2025 9:38 AM Gabriella Bird RN [facility] 04-11-2025 Because of a physica l, mental, or emotional condition, do you have serious difficulty concentrating, remembering, or making decisions No 04/11/2025 9:12 AM Mango Melendrez, STACIA [facility] 11-12-2022 Cognitive function Voice/Name [facility] Work Phone: 09-24-2022 Cognitive function Level Of Cons ciousness Awake;Alert;Appropriate;Fol lows Commands [facility] Work Phone: 09-24-2022 Cognitive function Voice/Name [facility] Work Phone: 09-23-2022 Cognitive function Level Of Cons ciousness Awake;Alert;Appropriate;Fol lows Commands [facility] Work Phone: 03-28-2015 Because of a physica l, mental, or emotional condition, do you have serious difficulty concentrating, remembering, or making decisions No 03/28/2015 11:57 AM EDT Giuseppe Hanna MA No [facility] Clinical Notes 02-08-2023 to 07-20-2025 Amberly Sanchez MD - 07/20/2025 9:58 AM EDTPatient InstructionsTelephone Encounter - Funmilayo Panchal RN - 07/15/2025 4:14 PM EDTTelephone Encounter - Funmilayo Panchal RN - 07/15/2025 4:14 PM EDT Note Date & Type Note Facility 07-20-2025 Note HNO ID: [id number] Author: AMBERLY SANCHEZ MD Service: ? Author Type: Physician Type: Progress Notes Filed: 07/20/2025 14:37 Note Text: NST SUMMARY PROVIDER ASSESSMENT AND INTERPRETATION Yokasta Pretty is a 29 year old female, , who is at 35w2d with an CLAUDIO of 08/22/2025, by Last Menstrual Period dating method. Indications for NST: Obesity Baseline: 135 Variability: Moderate Accelerations: Present 15 X 15 Decelerations: Variable Contractions: TOCO: None Interpretation: Reactive SIGNATURE: Amberly Sanchez MD [facility] 07-20-2025 History of Presen t illness Narrative NST SUMMARY PROVIDER ASSESSMENT AND INTERPRETATION Yokasta Pretty is a 29 year old female, , who is at 35w2d with an CLAUDIO of 08/22/2025, by Last Menstrual Period dating method. Indications for NST: Obesity Baseline: 135 Variability: Moderate Accelerations: Present 15 X 15 Decelerations: Variable Contractions: TOCO: None Interpretation: Reactive SIGNATURE: Amberly Sanchez MD documented in this encounter [facility] 07-20-2025 Instructions Michelle Florian MA - 07/20/2025 8:49 AM EDT SEQUENTIAL SCREENINGS The [facility] offers sequential screenings for women who are interested in screenings for chromosomal abnormalities and certain defects during a . The sequential screen combines ultrasound and blood tests to determine the risk of chromosomal abnormalities, including Down's Syndrome (Trisomy 21) and Trisomy 18, as well as open neural tube defects including spina bifida. Ultrasound examination is performed between 11 weeks and 13 weeks gestational age. Blood tests are drawn after the ultrasound and again later in the between 15 and 21 weeks gestational age. Please let your physician know if you are interested in this testing. It will require an appointment with our education technician. This is not an ultrasound performed by a physician in our office during a routine visit. SIGNS AND SYMPTOMS OF LABOR 1. Contractions every 10 minutes or more often 2. Clear, pink, or brownish fluid (water) leaking from vagina 3. Feeling that baby is pushing down, pressure 4. Low, dull backache 5. Cramps that feel like a period 6. Cramps with or without diarrhea If you notice any of the above symptoms, contact our office at [phone] and ask to speak with a nurse. After hours, you can call doctors registry at [phone] OR call [facility] at [phone] and ask to have the doctor information systems security analyst paged. If you consider this an emergency, dial 9-1-3 or go to your nearest emergency department. NEED HELP? Are you dealing with a violent or abusive relationship? Are you a victim of rape or sexual assult? Call [facility] ([place]) 24 hour Crisis Hotline: 304.300.2868 or 024-522-2205. MANUAL Your Guide to a Healthy manual is now on-line. Visit [email or web address] to download your free copy documented in this encounter [facility] 07-15-2025 Telephone encount er Note 34w4d Left message for patient to call office. Funmilayo Panchal RN Result Note Patient should stop the macrobid as developing UTI on it. Recommend bid bactrim for 1 week. Amberly Sanchez MD BACTERIAL CULTURE, URINE [facility] 07-15-2025 Miscellaneous Notes Formattin g of this note might be different from the original. 34w4d Left message for patient to call office. Funmilayo Panchal RN Result Note Patient should stop the macrobid as developing UTI on it. Recommend bid bactrim for 1 week. Amberly Sanchez MD BACTERIAL CULTURE, URINE documented in this encounter [facility] 07-13-2025 Note HNO ID: [id number] Author: AMBERLY SANCHEZ MD Service: ? Author Type: Physician Type: Progress Notes Filed: 07/13/2025 12:28 Note Text: NST SUMMARY PROVIDER ASSESSMENT AND INTERPRETATION Yokasta Pretty is a 29 year old female, , who is at 34w2d with an CLAUDIO of 08/22/2025, by Last Menstrual Period dating method. Indications for NST: Obesity Baseline: 140 Variability: Moderate Accelerations: Present 15 X 15 Decelerations: Variable Contractions: TOCO: None Interpretation: Reactive SIGNATURE: Amberly Sanchez MD [facility] 07-13-2025 History of Presen t illness Narrative NST SUMMARY PROVIDER ASSESSMENT AND INTERPRETATION Yokasta Pretty is a 29 year old female, , who is at 34w2d with an CLAUDIO of 08/22/2025, by Last Menstrual Period dating method. Indications for NST: Obesity Baseline: 140 Variability: Moderate Accelerations: Present 15 X 15 Decelerations: Variable Contractions: TOCO: None Interpretation: Reactive SIGNATURE: Amberly Sanchez MD documented in this encounter [facility] 07-13-2025 Progress note Formatting of t his note might be different from the original. KJ - S: Yokasta denies LOF, contractions or vaginal bleeding. O: 34w2d, see flow sheet SENSITIVE EXAM: Sensitive exam not performed. A/P: Assessment & Plan 34 weeks gestation of (HCC) UTI (urinary tract infection) in , antepartum (HCC) Continue macrobid Orders: BACTERIAL CULTURE, URINE Obesity affecting in third trimester, unspecified obesity type (HCC) Growth US scheduled NST today Reviewed PTL & FM precautions Amberly Sanchez MD [facility] 07-13-2025 Miscellaneous Notes Formattin g of this note might be different from the original. KJ - S: Yokasta denies LOF, contractions or vaginal bleeding. O: 34w2d, see flow sheet SENSITIVE EXAM: Sensitive exam not performed. A/P: Assessment & Plan 34 weeks gestation of (HCC) UTI (urinary tract infection) in , antepartum (HCC) Continue macrobid Orders: BACTERIAL CULTURE, URINE Obesity affecting in third trimester, unspecified obesity type (HCC) Growth US scheduled NST today Reviewed PTL & FM precautions Amberly Sanchez MD documented in this encounter [facility] 07-13-2025 Instructions Michelle Florian MA - 07/13/2025 8:45 AM EDT SEQUENTIAL SCREENINGS The [facility] offers sequential screenings for women who are interested in screenings for chromosomal abnormalities and certain defects during a . The sequential screen combines ultrasound and blood tests to determine the risk of chromosomal abnormalities, including Down's Syndrome (Trisomy 21) and Trisomy 18, as well as open neural tube defects including spina bifida. Ultrasound examination is performed between 11 weeks and 13 weeks gestational age. Blood tests are drawn after the ultrasound and again later in the between 15 and 21 weeks gestational age. Please let your physician know if you are interested in this testing. It will require an appointment with our education technician. This is not an ultrasound performed by a physician in our office during a routine visit. SIGNS AND SYMPTOMS OF LABOR 1. Contractions every 10 minutes or more often 2. Clear, pink, or brownish fluid (water) leaking from vagina 3. Feeling that baby is pushing down, pressure 4. Low, dull backache 5. Cramps that feel like a period 6. Cramps with or without diarrhea If you notice any of the above symptoms, contact our office at [phone] and ask to speak with a nurse. After hours, you can call doctors registry at [phone] OR call [facility] at [phone] and ask to have the doctor information systems security analyst paged. If you consider this an emergency, dial [phone] or go to your nearest emergency department. NEED HELP? Are you dealing with a violent or abusive relationship? Are you a victim of rape or sexual assult? Call [facility] ([place]) 24 hour Crisis Hotline: 644.508.3226 or 013-322-8480. MANUAL Your Guide to a Healthy manual is now on-line. Visit [email or web address] to download your free copy documented in this encounter [facility] 07-06-2025 Note HNO ID: [id number] Author: RADHA ROWELL MD Service: ? Author Type: Physician Type: Progress Notes Filed: 07/06/2025 18:01 Note Text: NST SUMMARY PROVIDER ASSESSMENT AND INTERPRETATION Yokasta Pretty is a 29 year old female, , who is at 33w2d with an CLAUDIO of 08/22/2025, by Last Menstrual Period dating method. Indications for NST: Obesity Baseline: 145 Variability: Moderate Accelerations: Present 15 X 15 Decelerations: None Contractions: TOCO: None Interpretation: Reactive SIGNATURE: Radha Rowell MD [facility] 07-02-2025 Note Indication Evaluation of growth, Evaluation of well-being Maternal obesity, BMI >40 Impression - Single, live, intrauterine . - presentation is cephalic. - The biometry is consistent with the assigned gestational dating. - The EFW is 2036 g, at the 41%. AC is at the 27%. - The amniotic fluid volume is normal amount with an MVP of 6.5 cm and an LUL of 18.6 cm. - The placenta is anterior, fundal. - BPP 07/09. - No malformations visualized on a limited survey as detailed below. Recommendations Growth in four weeks Maternal Assessment Height 173 cm Height (ft) 5 ft Height (in) 8 in Physical Exam Initial weight (lb) 275 lb Initial BMI 41.81 kg/m Maternal assessment other: 5 Para 2 REMOTE READ Method Transabdominal ultrasound examination. View: Suboptimal view: limited by position Rodgers . Number of fetuses: 1 Dating LMP on: 11/15/2024 GA by LMP 32 w + 5 d CLAUDIO by LMP: 08/22/2025 GA by prior assessment 32 w + 5 d CLAUDIO by prior assessment: 08/22/2025 Ultrasound examination on: 07/02/2025 GA by U/S based upon: AC, BPD, Femur, HC GA by U/S 33 w + 5 d CLAUDIO by U/S: 08/15/2025 Assigned: based on stated CLAUDIO, selected on 07/02/2025 Assigned GA 32 w + 5 d Assigned CLAUDIO: 08/22/2025 General Evaluation Cardiac activity present. FHR 131 bpm. movements: present. Presentation: cephalic Placenta: Placental site: anterior, fundal Umbilical cord: Cord vessels: 3 vessel cord Amniotic fluid: Amount of AF: normal amount. MVP 6.5 cm. LUL 18.6 cm. Q1 2.7 cm, Q2 6.5 cm, Q3 4.7 cm, Q4 4.7 cm Biophysical Profile 2: breathing movements 2: Gross body movements 2: tone 2: Amniotic fluid volume 07/09 Biophysical profile score Growth Overview Exam date GA BPD (mm) HC (mm) AC (mm) FL (mm) HL (mm) EFW (g) 04/08/2025 20w 4d 49.5 66% 185.6 60% 162.3 68% 33.4 60% 31.6 48% 386 63% 07/02/2025 32w 5d 88 98% 321.7 90% 278.5 27% 62.3 48% 2035 41% Biometry Standard BPD 88.0 mm 35w 4d 98% Hadlock OFD 112.7 mm 34w 5d 82% Nicolaides HC 321.7 mm 35w 3d 90% Emiliana AC 278.5 mm 31w 6d 27% Hadlock Femur 62.3 mm 32w 1d 48% Emiliana EFW 2,036 g 32w 3d 41% Hadlock EFW (lb) 4 lb EFW (oz) 8 oz EFW by: Hadlock (HC-AC-FL) Extended Panel Edge Sealer 5.9 mm Extremities / Bony Struc FL / HC 0.19 Other Structures FHR 131 bpm Anatomy Lateral ventricles: normal Cavum septi pellucidi: normal Cerebellum: normal Cisterna magna: normal 4-chamber view: suboptimally visualized RVOT view: suboptimally visualized LVOT view: suboptimally visualized 3-vessel view: suboptimally visualized Heart / Thorax Situs: situs solitus (normal) Diaphragm: normal Stomach: normal Kidneys: normal Bladder: normal sex: male Wants to know sex: yes Performed By: Sanaz Aponte RDMS, RVT Read By: Ping Sotomayor M.D. [facility] 07-02-2025 Progress note Formatting of t his note might be different from the original. SW- Pt doing well. Having irregular ctx's. No vb, lof. Good FM. No fevers, chills, flank pain, urinary symptoms. Some nausea and vomiting. PE: Gen- NAD, well appearing A/p 32 wk gestation - H/o UTI and pyelo: Still taking course of Macrobid BID, then to go to once daily. Will need CFC next visit - H/o hypothyroidism: Labs to be completed today - Cont LDA - Obesity: Growth US today. Repeat in 4 weeks. Scheduled for weekly NST's - Discussed PTL precautions and FKC's - RTO 1 wk Noam Wyman DO [facility] 07-02-2025 Miscellaneous Notes Formattin g of this note might be different from the original. SW- Pt doing well. Having irregular ctx's. No vb, lof. Good FM. No fevers, chills, flank pain, urinary symptoms. Some nausea and vomiting. PE: Gen- NAD, well appearing A/p 32 wk gestation - H/o UTI and pyelo: Still taking course of Macrobid BID, then to go to once daily. Will need CFC next visit - H/o hypothyroidism: Labs to be completed today - Cont LDA - Obesity: Growth US today. Repeat in 4 weeks. Scheduled for weekly NST's - Discussed PTL precautions and FKC's - RTO 1 wk Noam Wyman DO documented in this encounter [facility] 07-02-2025 Instructions Michelle Florian MA - 07/02/2025 8:38 AM EDT SEQUENTIAL SCREENINGS The [facility] offers sequential screenings for women who are interested in screenings for chromosomal abnormalities and certain defects during a . The sequential screen combines ultrasound and blood tests to determine the risk of chromosomal abnormalities, including Down's Syndrome (Trisomy 21) and Trisomy 18, as well as open neural tube defects including spina bifida. Ultrasound examination is performed between 11 weeks and 13 weeks gestational age. Blood tests are drawn after the ultrasound and again later in the between 15 and 21 weeks gestational age. Please let your physician know if you are interested in this testing. It will require an appointment with our education technician. This is not an ultrasound performed by a physician in our office during a routine visit. SIGNS AND SYMPTOMS OF LABOR 1. Contractions every 10 minutes or more often 2. Clear, pink, or brownish fluid (water) leaking from vagina 3. Feeling that baby is pushing down, pressure 4. Low, dull backache 5. Cramps that feel like a period 6. Cramps with or without diarrhea If you notice any of the above symptoms, contact our office at [phone] and ask to speak with a nurse. After hours, you can call doctors registry at [phone] OR call [facility] at [phone] and ask to have the doctor information systems security analyst paged. If you consider this an emergency, dial 9-1-1 or go to your nearest emergency department. NEED HELP? Are you dealing with a violent or abusive relationship? Are you a victim of rape or sexual assult? Call [facility] ([place]) 24 hour Crisis Hotline: 735.228.3301 or 272-313-6952. MANUAL Your Guide to a Healthy manual is now on-line. Visit [email or web address] to download your free copy documented in this encounter [facility] 06-22-2025 Progress note Note Date/Time June 22, 2025 7:50 [facility] Medical Records Department [address] [place] [address] Progress Note - OBGYN 06/22/25 0746 MR#: [id number] Acct: [id number] Name: YOKASTA PRETTY Rep #:[id number] : 1995 29 From: Ari Blum CNM PCP: Nighat Munoz, BENNETT, MACHINIST FIRST CLASS-C Statu s:REG CLI Location: [address] Subjective Subjective Patient seen at bedside. C/O continued lower back/flank pain. Did not sleep well. Objective Data Objective Data Vital Signs: Vital Signs Temp Pulse Resp BP Pulse Ox 97.5 F L 63 16 104/55 L 98 06/22/25 07:18 06/22/25 07:18 06/22/25 07:18 06/22/25 07:18 06/22/25 07:17 Weight: 267 lb Body Mass Index (BMI) 40.6 Intake & Output: Intake and Output for Last 24 Hours 06/20/25 06/21/25 06/22/25 23:59 23:59 23:59 Intake Total 50 / 50 966.67 / 966.67 Balance 50 / 50 966.67 / 966.67 Lab / Micro Data 06/21/25 16:30 Labs: Laboratory Results - last 24 hr 06/21/25 16:30: WBC 9.8, RBC 3.66 L, Hgb 9.9 L, Hct 30.6 L, MCV 83.6, MCH 27.0, MCHC 32.4, RDW Std Deviation 48.4 H, RDW Coeff of Leonor 15.9 H, Plt Count 362, MPV9.9, Immature Gran % (Auto) 0.500, Neut % (Auto) 79.4 H, Lymph % (Auto) 12.8 L, Robeson % (Auto) 6.6, Eos % (Auto) 0.5, Baso % (Auto) 0.2, Absolute Neuts (auto) 7.7, Absolute Lymphs (auto) 1.25, Nucleated RBC % 0 Assessment & Plan (1) Recurrent UTI (urinary tract infection) complicating : (2) Flank pain: (3) 31 weeks gestation of : (4) Cramping affecting , antepartum: (5) Bipolar disorder: COMMENT: ON MED (6) Asthma: PLAN: Plan Continue IV fluids at 100 cc/hour S/P IV antibiotics x 1 dose Afebrile Morphine 4 mg IV PRN every 4-6 hours for pain Tylenol 1000 mg PO PRN every 6 hours for pain/ fever A&P provided to Dr. Sanchez who will be assumming managment over patient 06/22/25 0750 <Electronically signed by Ari Blum CNM> Cosigner Signature (if applicable): CC: ~ Signed [facility] Work Phone: 1(689) 320-779407-22-2025 Progress note [facility] Medical Records Department [address] [place] [address] Progress Note - OBGYN 06/22/2546 MR#: [id number] Acct: [id number] Name: YOKASTA PRETTY Rep #:[id number] : 1995 29 From: Ari Blum CNM PCP: BENNETT Lind, MACHINIST [employer]-C Statu s:REG CLI Location: [id number] Subjective Subjective Patient seen at bedside. C/O continued lower back/flank pain. Did not sleep well. Objective Data Objective Data Vital Signs: Vital Signs Temp Pulse Resp BP Pulse Ox 97.5 F L 63 16 104/55 L 98 06/22/25 07:18 06/22/25 07:18 06/22/25 07:18 06/22/25 07:18 06/22/25 07:17 Weight: 267 lb Body Mass Index (BMI) 40.6 Intake & Output: Intake and Output for Last 24 Hours 06/20/25 06/21/25 06/22/25 23:59 23:59 23:59 Intake Total 50 50 966.67 / 966.67 Balance 50 / 50 966.67 / 966.67 Lab / Micro Data 06/21/25 16:30 Labs: Laboratory Results - last 24 hr 06/21/25 16:30: WBC 9.8, RBC 3.66 L, Hgb 9.9 L, Hct 30.6 L, MCV 83.6, MCH 27.0, MCHC 32.4, RDW Std Deviation 48.4 H, RDW Coeff of Leonor 15.9 H, Plt Count 362, MPV9.9, Immature Gran % (Auto) 0.500, Neut% (Auto) 79.4 H, Lymph % (Auto) 12.8 L, Robeson % (Auto) 6.6, Eos % (Auto) 0.5, Baso % (Auto) 0.2, Absolute Neuts (auto) 7.7, Absolute Lymphs (auto) 1.25, Nucleated RBC % 0 Assessment & Plan (1) Recurrent UTI (urinary tract infection) complicating : (2) Flank pain: (3) 31 weeks gestation of : (4) Cramping affecting , antepartum: (5) Bipolar disorder: COMMENT: ON MED (6) Asthma: PLAN: Plan Continue IV fluids at 100 cc/hour S/P IV antibiotics x 1 dose Afebrile Morphine 4 mg IV PRN every 4-6 hours for pain Tylenol 1000 mg PO PRN every 6 hours for pain/ fever A&P provided to Dr. Sanchez who will be assumming managment over patient 06/22/25 0750 Cosigner Signature (if applicable): CC: ~ Signed [facility]07-21-2025 History and physical note Author Ari Blum [facility] Note Date/Time June 21, 2025 5:15 pm [facility] Medical Records Department [address] [place] [address] OB Triage Physician Note 06/21/25 1709 MR#: [id number] Acct: [id number] Name: YOKASTA PRETTY Rep #:[id number] : 1995 29 From: Ari Blum CNM PCP: BENNETT Lind, MACHINIST [employer] CLASS-C Statu s:REG CLI Y Location: [id number] HPI - General HPI Narrative YOKASTA PRETTY, is a 29 F at 31.1 weeks gestation who was sent over from office visit for lower back, flank pain and UTI symptoms. Patient to be observation status and to get 24 hours of IV antibiotics. Maternal Data Information CLAUDIO Calculator Estimated Delivery Date Method Current WG Current Estimate 08/22/25 Manual 31w 1d PFSH PFSH Medical History Lactating mother Vaginal delivery Positive GBS test History of depression Short interval between pregnancies affecting in third trimester, antepartum Obesity UTI in SROM (spontaneous rupture of membranes) 37 weeks gestation of MRSA infection Trauma Thyroid disorder Liver disease depression Wears glasses Fatty liver Heartburn Gastric reflux Former smoker PCOS (polycystic ovarian syndrome) Injury of head and neck Migraines Cholecystitis with cholelithiasis Chest pain Spontaneous vaginal delivery Elective induction of labor planned Marginal placenta previa Asthma Bipolar disorder Anxiety Depression Home Medications ?Medication ?Instructions ?Recorded ?Last Taken ?Type albuterol 90 mcg/actuation aerosol 90 mcg inhalation Q 6H PRN PRN 10/10/23 Unknown History inhaler asthma acetaminophen 500 mg tablet 1,000 mg (2 x 500 mg) PO Q 6H PRN 10/17/23 Unknown Rx PRN Pain 1-10 Or Fever #0 tabs phenazopyridine 200 mg tablet 200 mg PO TID 6 doses #6 tabs 11/30/24 Unknown Rx (Pyridium) sulfamethoxazole 800 1 tab PO BID #6 TABLETS 12/26 Unknown Rx mg-trimethoprim 160 mg tablet Allergy/AdvReac Type Severity Reaction Status Date / Time aripiprazole Allergy Hives Verified 11/30/24 16:36 Family History Father Anxiety Depression Mental disorder Suicide attempt Grandfather Cancer lung Grandmother Myocardial infarction CVA (cerebral vascular accident) Surgical History History of cholecystectomy Hx of tonsillectomy History of surgery Social History household members: family housing: house current occupational status: employed current occupation: [employer] sexually active: Yes Smoking Status: Current every day smoker tobacco type: e-cigarettes Electronic Cigarette Use: not used alcohol intake: current alcohol intake frequency: holidays/special occasions only substance use type: does not use what type of physical activity do you participate in: walking frequency: 5-6 times per week seatbelt use: always do you feel safe at home: Yes History 1 Elective abortions Hx Para 1 Spontaneous abortions Hx # Term Pregnancies Ectopic pregnancies Hx # Pregnancies Multiple births # of living children 1 ROS Eyes Eyes: Denies blurry vision Cardiovascular Cardiovascular: Reports none; Denies chest pain at rest, chest pain with activity or dizziness Respiratory/Chest Respiratory/Chest: Denies cough or dyspnea Gastrointestinal Gastrointestinal: Reports none and other; Denies diarrhea or vomiting Genitourinary Genitourinary: Reports as per HPI, low back pain and other Details: flank pain Musculoskeletal Musculoskeletal: Reports none Integumentary Integumentary: Reports none; Denies rash Neurologic Neurologic: Denies dizziness, headache(s) or other visual disturbances Psychiatric Psychiatric: Reports none Assessment & Plan (1) 31 weeks gestation of : (2) Flank pain: (3) Recurrent UTI (urinary tract infection) complicating : PLAN: Plan Afebrile Start IV and run N/S at 100 mg/hour Start Ceftriaxone 1 gm IV every 24 hours Continuous monitoring 06/21/25 1715 <Electronically signed by Ari duffy CNM> Date _ Ari Blmu CNM Cosigner Signature (if applicable): Date CC: SHANITA Blum; [facility] MACHINIST FIRST CLASS-Filiberto Munoz ~ Signed [facility] Work Phone: 1(136) 253-808607-21-2025 Evaluation note* Diagnosis Onset Date Resolution Status Admit Date 31 weeks gestation of acut e June 21, 2025 3:48pm Asthma acute June 21 3:48pm Bipolar disorder acute June 3:48pm Cramping affecting , antepartum acute June 21, 2025 3:48pm Flank pain acute June 21 3:48pm Recurrent UTI (urinary tract infection) complicating acute June 21, 2025 3:48pm [facility] Work Phone: 1(889) 165-962407-21-2025 History and physical note [facility] Medical Records Department [address] [place] [address] OB Triage Physician Note 06/21/25 1701 MR#: [id number] Acct: [id number] Name: YOKASTA PRETTY Rep #:[id number] : 1995 29 From: Ari Blum CNM PCP: Nighat Munoz, BENNETT, MACHINIST FIRST CLASS-C Statu s:REG CLI Y Location: [place] [id number] HPI - General HPI Narrative YOKASTA PRETTY, is a 29 F at 31.1 weeks gestation who was sent over from office visit for lowerback, flank pain and UTI symptoms. Patient to be observation status and to get 24 hours of IV antibiotics. Maternal Data Information CLAUDIO Calculator Estimated Delivery Date Method Current WG Current Estimate 08/22/25 Manual 31w 1d PFSH PFSH Medical History Lactating mother Vaginal delivery Positive GBS test History of depression Short interval between pregnancies affecting in third trimester, antepartum Obesity UTI in SROM (spontaneous rupture of membranes) 37 weeks gestation of MRSA infection Trauma Thyroid disorder Liver disease depression Wears glasses Fatty liver Heartburn Gastric reflux Former smoker PCOS (polycystic ovarian syndrome) Injury of head and neck Migraines Cholecystitis with cholelithiasis Chest pain Spontaneous vaginal delivery Elective induction of labor planned Marginal placenta previa Asthma Bipolar disorder Anxiety Depression Home Medications ?Medication ?Instructions ?Recorded ?Last Taken ?Type albuterol 90 mcg/actuation aerosol 90 mcg inhalation Q 6H PRN PRN 10/10/23 Unknown History inhaler asthma acetaminophen 500 mg tablet 1,000 mg (2 x 500 mg) PO Q 6H PRN 10/17/23 Unknown Rx PRN Pain 1-10 Or Fever #0 tabs phenazopyridine 200 mg tablet 200 mg PO TID 6 doses #6 tabs 11/30/24 Unknown Rx (Pyridium) sulfamethoxazole 800 1 tab PO BID #6 TABLETS 12/26 Unknown Rx mg-trimethoprim 160 mg tablet Allergy/AdvReac Type Severity Reaction Status Date / Time aripiprazole Allergy Hives Verified 11/30/24 16:36 Family History Father Anxiety Depression Mental disorder Suicide attempt Grandfather Cancer lung Grandmother Myocardial infarction CVA (cerebral vascular accident) Surgical History History of cholecystectomy Hx of tonsillectomy History of surgery Social History household members: family housing: house current occupational status: employed current occupation: [employer] sexually active: Yes Smoking Status: Current every day smoker tobacco type: e-cigarettes Electronic Cigarette Use: not used alcohol intake: current alcohol intake frequency: holidays/special occasions only substance use type: does not use what type of physical activity do you participate in: walking frequency: 5-6 times per week seatbelt use: always do you feel safe at home: Yes History 1 Elective abortions Hx Para 1 Spontaneous abortions Hx # Term Pregnancies Ectopic pregnancies Hx # Pregnancies Multiple births # of living children 1 ROS Eyes Eyes: Denies blurry vision Cardiovascular Cardiovascular: Reports none; Denies chest pain at rest, chest pain with activity or dizziness Respiratory/Chest Respiratory/Chest: Denies cough or dyspnea Gastrointestinal Gastrointestinal: Reports none and other; Denies diarrhea or vomiting Genitourinary Genitourinary: Reports as per HPI, low back pain and other Details: flank pain Musculoskeletal Musculoskeletal: Reports none Integumentary Integumentary: Reports none; Denies rash Neurologic Neurologic: Denies dizziness, headache(s) or other visual disturbances Psychiatric Psychiatric: Reports none Assessment & Plan (1) 31 weeks gestation of : (2) Flank pain: (3) Recurrent UTI (urinary tract infection) complicating : PLAN: Plan Afebrile Start IV and run N/S at 100 mg/hour Start Ceftriaxone 1 gm IV every 24 hours Continuous monitoring 06/21/25 1715 ts CNM> Date _ Ari Blum CNM Cosigner Signature (if applicable): Date CC: SHANITA Blum; [employer] MACHINIST FIRST CLASS-C Nighat Munoz ~ Signed [facility]07-21-2025 Progress note* Quick Notes - Noam Wyman MD - 06/21/2025 2:21 PM EDT SW- Add on visit for urinary symptoms and flank pain. Yokasta is having dysuria, the feeling of incomplete emptying of her bladder, urinary urgency, left lower back pain, nausea. She denies fevers, chills, malaise, vomiting. Eating okay. No vb, lof. Some cramping but no regular ctx's. Good FM PE: Gen- NAD, well appearing, comfortable MSK- Left CVA tenderness Abd- Soft, gravid, NT See flowsheet A/p 31 wk gestation with urinary symptoms, left CVA tenderness, h/o pyelo - Sent to [facility] L[facility] for observation for IVF hydration, CBC with diff, Rocephin - Keep scheduled routine follow up Noam Wyman DO [facility]07-21-2025 Miscellaneous Notes* Quick Notes - Noam Wyman MD - 06/21/2025 2:21 PM EDT SW- Add on visit for urinary symptoms and flank pain. Yokasta is having dysuria, the feeling of incomplete emptying of her bladder, urinary urgency, left lower back pain, nausea. She denies fevers, chills, malaise, vomiting. Eating okay. No vb, lof. Some cramping but no regular ctx's. Good FM PE: Gen- NAD, well appearing, comfortable MSK- Left CVA tenderness Abd- Soft, gravid, NT See flowsheet A/p 31 wk gestation with urinary symptoms, left CVA tenderness, h/o pyelo - Sent to [facility] L[facility]D for observation for IVF hydration, CBC with diff, Rocephin - Keep scheduled routine follow up Noam Wyman DO [facility] Instructions* Patient Instructions* Michelle Florian MA - 06/21/2025 2:09 PM EDT SEQUENTIAL SCREENINGS The [facility] offers sequential screenings for women who are interested in screenings for chromosomal abnormalities and certain defects during a . The sequential screen combinesultrasound and blood tests to determine the risk of chromosomal abnormalities, including Down's Syndrome (Trisomy 21) and Trisomy 18, as well as open neural tube defects including spina bifida. Ultrasound examination is performed between 11 weeks and 13 weeks gestational age. Blood tests are drawn after the ultrasound and again later in the between 15 and 21 weeks gestational age. Please let your physician know if you are interested in this testing. It will require an appointment withour education technician. This is not an ultrasound performed by a physician in our office during a routine visit. SIGNS AND SYMPTOMS OF LABOR 1. Contractions every 10 minutes or more often 2. Clear, pink, or brownish fluid (water) leaking from vagina 3. Feeling that baby is pushing down, pressure 4. Low, dull backache 5. Cramps that feel like a period 6. Cramps with or without diarrhea If you notice any of the above symptoms, contact our office at [phone] and ask to speak with anurse. After hours, you can call doctors registry at [phone] OR call [facility] at [phone] ask to have the doctor information systems security analyst paged. If you consider this an emergency, dial 4-1- or go to your nearest emergency department. NEED HELP? Are you dealing with a violent or abusive relationship? Are you a victim of rape or sexual assult? Call [facility] ([place]) 24 hour Crisis Hotline: 699.858.1486 or 398-801-0400. MANUAL Your Guide to a Healthy manual is now on-line. Visit [email or web address] to download your free copy documented in this encounterMartin [facility]07-[facility] Telephone encounter Note * Telephone Encounter - Kelly Lundberg RN - 06/21/2025 12:36 PM EDT Patient scheduled with SW today. Kelly Lundberg RN [facility]07-21-2025 Miscellaneous Notes* Telephone Encounter - Kelly Lundberg RN - 06/21/2025 12:36 PM EDT Patient scheduled with jennie. Kelly Lundberg RN * Telephone Encounter - Sanaz Arredondo RN - 06/21/2025 12:27 PM EDT Left message to call office. Sanaz Arredondo RN * Telephone Encounter - Ari Blum APRN.CNM - 06/21/2025 12:25 PM EDT Needs appointment. She will need urine sent. Ari Blum APRN.CNM * Telephone Encounter - Sanaz Arerdondo RN - 06/21/2025 11:24 AM EDT Patient 31w1d, next appointment is on 07/02. Currently on Macrobid 100 mg daily. Sanaz Arredondo RN documented in this encounterMartin [facility] Hospital07-21-2025 Telephone encounter Note * Telephone Encounter - Sanaz Arredondo RN - 06/21/2025 12:27 PM EDT Left message to call office. Sanaz Arredondo RN [facility]07-21-2025 Telephone encounter Note* Telephone Encounter - Ari Blum APRN.CNM - 06/21/2025 12:25 PM EDT Needs appointment. She will need urine sent. Ari Blum APRN.CNM [facility] Work Phone: 1(624) 251-937307-21-2025 Telephone encounter Note* Telephone Encounter - Sanaz Arredondo RN - 06/21/2025 11:24 AM EDT Patient 31w1d, next appointment is on 07/02. Currently on Macrobid 100 mg daily. Sanaz Arredondo RN [facility]07-16-2025 NoteHNO ID: [id number] Author: TOM VAZ MD Service: ? Author Type: Physician Type: Progress Notes Filed: 06/16/2025 11:35 Note Text: NST SUMMARY PROVIDER ASSESSMENT AND INTERPRETATION Yoaksta Pretty is a 29 year old female, , who is at 30w3d with an CLAUDIO of 08/22/2025, by Last Menstrual Period dating method. Indications for NST: Decreased Movement Baseline: 140 Variability: Moderate Accelerations: Present 15 X 15 Decelerations: None Contractions: TOCO: None Interpretation: Category I and Reactive SIGNATURE: [facility] History of Present illness Narrative* Tom Vaz MD - 06/16/2025 10:07 AM EDT NST SUMMARY PROVIDER ASSESSMENT AND INTERPRETATION Yokasta Pretty is a 29 year old female, , who is at 30w3d with an CLAUDIO of 08/22/2025, by Last Menstrual Period dating method. Indications for NST: Decreased Movement Baseline: 140 Variability: Moderate Accelerations: Present 15 X 15 Decelerations: None Contractions: TOCO: None Interpretation: Category I and Reactive SIGNATURE: Tom Oshea MD documented in this encounterMartin Memorial Hospital07-16-2025 Progress note* Quick Notes - Tom Vaz MD - 06/16/2025 10:05 AM EDT DM-Pt doing well. Denies vaginal Bleeding, Leaking fluid, or regular Contractions. Pt reports no FMx 24 hrs Physical Exam: Gen: female in no apparent distress Abd: soft, Gravid. Non tender to palpation. See flow sheet @ 30.3 weeks Assessment & Plan Supervision of high risk in third trimester (HCC) Anemia complicating , third trimester (HCC) Continue PO iron Obesity affecting in third trimester, unspecified obesity type (HCC) Growth at 32/36 weeks Orders: NON-STRESS TEST; Standing Hypothyroidism affecting in second trimester (HCC) Continue synthroid Decreased movements in third trimester, single or unspecified fetus (HCC) Orders: NON-STRESS TEST; Standing 30 weeks gestation of (HCC) Kick counts reviewed Rto 2 wks Tom Oshea MD [facility]07-[facility] Miscellaneous Notes* Quick Notes - Tom Vaz MD - 06/16/2025 10:05 AM EDT DM-Pt doing well. Denies vaginal Bleeding, Leaking fluid, or regular Contractions. Pt reports no FMx 24 hrs Physical Exam: Gen: female in no apparent distress Abd: soft, Gravid. Non tender to palpation. See flow sheet @ 30.3 weeks Assessment & Plan Supervision of high risk in third trimester (HCC) Anemia complicating , third trimester (HCC) Continue PO iron Obesity affecting in third trimester, unspecified obesity type (HCC) Growth at 32/36 weeks Orders: NON-STRESS TEST; Standing Hypothyroidism affecting in second trimester (HCC) Continue synthroid Decreased movements in third trimester, single or unspecified fetus (HCC) Orders: NON-STRESS TEST; Standing 30 weeks gestation of (HCC) Kick counts reviewed Rto 2 wks Tom Oshea MD documented in this encounterMartin Memorial Hospital07-16-2025 Instructions* Patient Instructions* Naomi Bustamante MA - 06/16/2025 9:38 AM EDT SEQUENTIAL SCREENINGS The [facility] offers sequential screenings for women who are interested in screenings for chromosomal abnormalities and certain defects during a . The sequential screen combinesultrasound and blood tests to determine the risk of chromosomal abnormalities, including Down's Syndrome (Trisomy 21) and Trisomy 18, as well as open neural tube defects including spina bifida. Ultrasound examination is performed between 11 weeks and 13 weeks gestational age. Blood tests are drawn after the ultrasound and again later in the between 15 and 21 weeks gestational age. Please let your physician know if you are interested in this testing. It will require an appointment withour education technician. This is not an ultrasound performed by a physician in our office during a routine visit. SIGNS AND SYMPTOMS OF LABOR 1. Contractions every 10 minutes or more often 2. Clear, pink, or brownish fluid (water) leaking from vagina 3. Feeling that baby is pushing down, pressure 4. Low, dull backache 5. Cramps that feel like a period 6. Cramps with or without diarrhea If you notice any of the above symptoms, contact our office at [phone] and ask to speak with anurse. After hours, you can call doctors registry at [phone] OR call [facility] at [phone] ask to have the doctor information systems security analyst paged. If you consider this an emergency, dial 91-0 or go to your nearest emergency department. NEED HELP? Are you dealing with a violent or abusive relationship? Are you a victim of rape or sexual assult? Call [facility] ([facility] 24 hour Crisis Hotline: 533.784.6315 or 421-220-2444. MANUAL Your Guide to a Healthy manual is now on-line. Visit [email or web address] to download your free copy documented in this encounterMartin Memorial Hospital07-07-2025 Telephone encounter Note * Telephone Encounter - Katelynn Luciano RN - 06/07/2025 9:53 AM EDT 3rd risk assessment form submitted 06/07/25 Katelynn Luciano RN [facility]07-07-2025 Miscellaneous Notes* Telephone Encounter - Katelynn Luciano RN - 06/07/2025 9:53 AM EDT 3rd risk assessment form submitted 06/07/25 Katelynn Luciano RN documented in this encounterMartin Memorial Hospital07-03-2025 Progress note* Quick Notes - Amberly Sanchez MD - 06/03/2025 10:33 AM EDT KJ - S: Yokasta denies LOF, contractions or vaginal bleeding. O: 28w4d, see flow sheet SENSITIVE EXAM: Sensitive exam not performed. A/P: Assessment & Plan Pyelonephritis complicating , antepartum (HCC) On macrobid suppression. Hypothyroidism affecting in second trimester ([facility]) Follows with endo. Continue synthroid. Anemia complicating , third trimester ([facility]) 28 weeks gestation of ([facility]) 28wk labs & Tdap today. Declines LARC but considering IUD after PP check. Obesity affecting in third trimester, unspecified obesity type ([facility]) Orders: OBSTETRIC ULTRASOUND WHI; Future Note given for Job & Family services. Patient has protection order against FOB and is now a single mother. Reviewed PTL & FM precautions. Amberly Sanchez MD [facility]07-03-2025 Miscellaneous Notes* Quick Notes - Amberly Sanchez MD - 06/03/2025 10:33 AM EDT KJ - S: Yokasta denies LOF, contractions or vaginal bleeding. O: 28w4d, see flow sheet SENSITIVE EXAM: Sensitive exam not performed. A/P: Assessment & Plan Pyelonephritis complicating , antepartum (HCC) On macrobid suppression. Hypothyroidism affecting in second trimester (HCC) Follows with endo. Continue synthroid. Anemia complicating , third trimester (HCC) 28 weeks gestation of ([facility]) 28wk labs & Tdap today. Declines LARC but considering IUD after PP check. Obesity affecting in third trimester, unspecified obesity type ([facility]) Orders: OBSTETRIC ULTRASOUND WHI; Future Note given for Job & Family services. Patient has protection order against FOB and is now a single mother. Reviewed PTL & FM precautions. Amberly Sanchez MD documented in this encounterMartin Memorial Hospital07-03-2025 Instructions* Patient Instructions* Mavis Garcia MA - 06/03/2025 10:22 AM EDT SEQUENTIAL SCREENINGS The [facility] offers sequential screenings for women who are interested in screenings for chromosomal abnormalities and certain defects during a . The sequential screen combinesultrasound and blood tests to determine the risk of chromosomal abnormalities, including Down's Syndrome (Trisomy 21) and Trisomy 18, as well as open neural tube defects including spina bifida. Ultrasound examination is performed between 11 weeks and 13 weeks gestational age. Blood tests are drawn after the ultrasound and again later in the between 15 and 21 weeks gestational age. Please let your physician know if you are interested in this testing. It will require an appointment withour education technician. This is not an ultrasound performed by a physician in our office during a routine visit. SIGNS AND SYMPTOMS OF LABOR 1. Contractions every 10 minutes or more often 2. Clear, pink, or brownish fluid (water) leaking from vagina 3. Feeling that baby is pushing down, pressure 4. Low, dull backache 5. Cramps that feel like a period 6. Cramps with or without diarrhea If you notice any of the above symptoms, contact our office at [phone] and ask to speak with anurse. After hours, you can call doctors registry at [phone] OR call [facility] at [phone] ask to have the doctor information systems security analyst paged. If you consider this an emergency, dial 9-- or go to your nearest emergency department. NEED HELP? Are you dealing with a violent or abusive relationship? Are you a victim of rape or sexual assult? Call [facility] ([place]) 24 hour Crisis Hotline: 496.841.4844 or 368-006-0613. MANUAL Your Guide to a Healthy manual is now on-line. Visit [email or web address] to download your free copy documented in this encounterMartin Memorial Hospital06-20-2025 Telephone encounter Note * Telephone Encounter - Elizabeth Ghosh LPN - 05/21/2025 4:10 PM EDT [employer] message sent to schedule appointment to discuss work concern [facility]06[facility] Miscellaneous Notes* Telephone Encounter - Elizabeth Ghosh LPN - 05/21/2025 4:10 PM EDT [employer] message sent to schedule appointment to discuss work concern * Telephone Encounter - Judit Pimentel APRN.CNP - 05/21/2025 3:50 PM EDT I don't have a medical indication to excuse entirely from work right now. Can discuss restrictions at next appointment. Judit Pimentel APRN.CNP * Telephone Encounter - Elizabeth Ghosh LPN - 05/21/2025 3:34 PM EDT Ob patient is 26w5d. Will patient need to discuss this at an appointment? documented in this encounterMartin Memorial Hospital06-20-2025 Telephone encounter Note * Telephone Encounter - Judit Pimentel APRN.CNP - 05/21/2025 3:50 PM EDT I don't have a medical indication to excuse entirely from work right now. Can discuss restrictions at next appointment. Judit Pimentel APRN.FRANK [facility]06-20-2025 Telephone encounter Note* Telephone Encounter - Elizabeth Ghosh LPN - 05/21/2025 3:34 PM EDT Ob patient is 26w5d. Will patient need to discuss this at an appointment? [facility]06-18-2025 NoteHNO ID: [id number] Author: ?, ?, ? Service: ? Author Type: ? Type: Progress Notes Filed: 05/19/2025 08:24 Note Text: [facility] History of Present illness Narrative* Alesia Mallory MD - 05/17/2025 1:00 PM EDT thyroid virtual visit: This is a virtual visit encounter with Yokasta Pretty It required patient-provider interaction for the medical decision making as documented below. Reason for the visit: hypothyroidism in preganancy Last office visit: Consult per Judit Pimentel CNP Patient is taking levothyroxin ? Yes Patient is not taking iron, calcium and/or multivitamin within4 hours of the levothyroxin and patient is not missing any doses of levothyroxin CC: Hypothyroidism in . Current Outpatient Medications Medication Sig Dispense Refill ferrous sulfate (IRON) 325 mg (65 mg iron) tablet Take 1 tablet by mouth every other day. 60 tablet2 acetaminophen (TYLENOL) 500 mg tablet Take 2 tablets by mouth every 6 hours as needed for pain. 60 tablet 0 levothyroxine (SYNTHROID) 100 mcg tablet Take 1 tablet by mouth daily at 6 am. 90 tablet 0 cyclobenzaprine (FLEXERIL) 5 mg tablet Take 1 tablet by mouth three times a day as needed. 20 tablet 0 polyethylene glycol 3350 17 gram packet Take 1 packet by mouth once daily. Dissolve dose in 4 - 8 ounces of liquid and take as directed. 24 packet 0 [START ON 05/09/2026] nitrofurantoin monohydrate and macrocrystal (MACROBID) 100 mg capsule Take 1 capsule by mouth once daily. Take 1 capsule once daily for suppression / UTI prophylaxis for duration of Patient should start on May 09, 2026. 180 capsule 0 levothyroxine (SYNTHROID) 75 mcg tablet Take 0.5 tablets by mouth once daily. (Patient not taking: Reported on 05/06/2025) 15 tablet 2 aspirin, enteric coated (ECOTRIN LOW STRENGTH) 81 mg EC tablet Take 1 tablet by mouth once daily. 90 tablet 3 vits62/FA/om3/dha/epa ( GUMMY ORAL) Take 1 Piece by mouth once daily. Cholecalciferol, Vitamin D3, 125 mcg (5,000 unit) cap 5,000 Units once daily. acetaminophen (TYLENOL) 500 mg tablet Take by mouth. No current facility-administered medications for this visit. Meds were reviewed and reconciled: Yes HPI: New patient Hypothyroidism in - currently 26 weeks Dx and started on therapy at beginning of around 4-5 weeks Started on Lt4 50 mcg daily and increased to 75 mcg daily at 22 weeks and increased 100 mcg at 24 weeks CLAUDIO 08/22/2025 When she was a teenager she recalls being told she was borderline but never started therapy This is 5th has 2 living babies ( 2 miscarriages ) Has had 2 US of baby - normal anatomy no concerns No FH of thyroid disease ROS: Answers submitted by the patient for this visit: Endocrine Review of Systems (Submitted on 05/16/2025) Fatigue: Yes Night sweats: Yes Recent unintentional weight change: No Skin Color Changes: No Post-Nasal Drip: No Thyroid Pain (lower neck): No Trouble Swallowing: No Vision Disturbance: No Chest pain: No Leg Swelling: No Blood Clots?: No Leg Pain while walking?: No Difficulty Breathing?: No Heartburn: Yes Nausea: Yes Vomiting: No Diarrhea: Yes Constipation: Yes Abdominal pain: Yes Bone Pain?: No Muscle aches: Yes Muscle weakness: No Joint pain or stiffness: No Headaches: Yes Dizziness: Yes Numbness?: No Urgency to Urinate?: Yes Increased Urination: Yes Slow or Small Urine Stream?: Yes Are your menstrual cycles regular?: No Are your menstrual cycles irregular?: Yes Have your menstrual cycles stopped?: No Flushing: Yes Hot Flashes?: Yes Increased Thirst: Yes Change in Body Hair?: Yes Cold Intolerance: No Heat Intolerance: No Past, social and family histories were reviewed and updated in the database Yes Physical exam: VIDEO EXAM: (if completed, performed via video enabled technology) No exam performed Previous laboratory results: TSH (mIU/L) Date Value 05/06/2025 5.060 04/08/2025 6.230 02/16/2025 4.080 Latest Ref Rng 02/16/2025 04/08/2025 05/06/2025 TSH 0.270 - 4.200 mIU/L 4.080 6.230 (H) 5.060 (H) Free T4 0.9 - 1.7 ng/dL 0.8 (L) 0.7 (L) 0.7 (L) Impression and recommendations: Hypothyroidism in Currently 26 weeks CLAUDIO 08/22/2025 Dx and started at 4-5 weeks gestation Current dose 100 mcg daily increased 2 weeks ago from 75 mcg daily Her weight was #270 She has lost weight during this - she weighs around #250 PLAN: Increase Lt4 125 mcg daily RTC 4 weeks - TBS on June 14 with TSH/ Free T4 ordered for June 11 Alesia Mallory MD documented in this encounterMartin Memorial Hospital06-16-2025 NoteHNO ID: [id number] Author: ALESIA MALLORY MD Service: ? Author Type: Physician Type: Progress Notes Filed: 05/17/2025 13:33 Note Text: thyroid virtual visit: This is a virtual visit encounter with Yokasta Pretty It required patient-provider interaction for the medical decision making as documented below. Reason for the visit: hypothyroidism in preganancy Last office visit: Consult per Judit Pimentel CNP Patient is taking levothyroxin ? Yes Patient is not taking iron, calcium and/or multivitamin within 4 hours of the levothyroxin and patient is not missing any doses of levothyroxin CC: Hypothyroidism in . Current Outpatient Medications Medication Sig Dispense Refill ferrous sulfate (IRON) 325 mg (65 mg iron) tablet Take 1 tablet by mouth every other day. 60 tablet 2 acetaminophen (TYLENOL) 500 mg tablet Take 2 tablets by mouth every 6 hours as needed for pain. 60 tablet 0 levothyroxine (SYNTHROID) 100 mcg tablet Take 1 tablet by mouth daily at 6 am. 90 tablet 0 cyclobenzaprine (FLEXERIL) 5 mg tablet Take 1 tablet by mouth three times a day as needed. 20 tablet 0 polyethylene glycol 3350 17 gram packet Take 1 packet by mouth once daily. Dissolve dose in 4 - 8 ounces of liquid and take as directed. 24 packet 0 [START ON 05/09/2026] nitrofurantoin monohydrate and macrocrystal (MACROBID) 100 mg capsule Take 1 capsule by mouth once daily. Take 1 capsule once daily for suppression / UTI prophylaxis for duration of Patient should start on May 09, 2026. 180 capsule 0 levothyroxine (SYNTHROID) 75 mcg tablet Take 0.5 tablets by mouth once daily. (Patient not taking: Reported on 05/06/2025) 15 tablet 2 aspirin, enteric coated (ECOTRIN LOW STRENGTH) 81 mg EC tablet Take 1 tablet by mouth once daily. 90 tablet 3 vits62/FA/om3/dha/epa ( GUMMY ORAL) Take 1 Piece by mouth once daily. Cholecalciferol, Vitamin D3, 125 mcg (5,000 unit) cap 5,000 Units once daily. acetaminophen (TYLENOL) 500 mg tablet Take by mouth. No current facility-administered medications for this visit. Meds were reviewed and reconciled: Yes HPI: New patient Hypothyroidism in - currently 26 weeks Dx and started on therapy at beginning of around 4-5 weeks Started on Lt4 50 mcg daily and increased to 75 mcg daily at 22 weeks and increased 100 mcg at 24 weeks CLAUDIO 08/22/2025 When she was a teenager she recalls being told she was borderline but never started therapy This is 5th has 2 living babies ( 2 miscarriages ) Has had 2 US of baby - normal anatomy no concerns No FH of thyroid disease ROS: Answers submitted by the patient for this visit: Endocrine Review of Systems (Submitted on 05/16/2025) Fatigue: Yes Night sweats: Yes Recent unintentional weight change: No Skin Color Changes: No Post-Nasal Drip: No Thyroid Pain (lower neck): No Trouble Swallowing: No Vision Disturbance: No Chest pain: No Leg Swelling: No Blood Clots?: No Leg Pain while walking?: No Difficulty Breathing?: No Heartburn: Yes Nausea: Yes Vomiting: No Diarrhea: Yes Constipation: Yes Abdominal pain: Yes Bone Pain?: No Muscle aches: Yes Muscle weakness: No Joint pain or stiffness: No Headaches: Yes Dizziness: Yes Numbness?: No Urgency to Urinate?: Yes Increased Urination: Yes Slow or Small Urine Stream?: Yes Are your menstrual cycles regular?: No Are your menstrual cycles irregular?: Yes Have your menstrual cycles stopped?: No Flushing: Yes Hot Flashes?: Yes Increased Thirst: Yes Change in Body Hair?: Yes Cold Intolerance: No Heat Intolerance: No Past, social and family histories were reviewed and updated in the database Yes Physical exam: VIDEO EXAM: (if completed, performed via video enabled technology) No exam performed Previous laboratory results: TSH (mIU/L) Date Value 05/06/2025 5.060 04/08/2025 6.230 02/16/2025 4.080 Latest Ref Rng 02/16/2025 04/08/2025 05/06/2025 TSH 0.270 - 4.200 mIU/L 4.080 6.230 (H) 5.060 (H) Free T4 0.9 - 1.7 ng/dL 0.8 (L) 0.7 (L) 0.7 (L) Impression and recommendations: Hypothyroidism in Currently 26 weeks CLAUDIO 08/22/2025 Dx and started at 4-5 weeks gestation Current dose 100 mcg daily increased 2 weeks ago from 75 mcg daily Her weight was #270 She has lost weight during this - she weighs around #250 PLAN: Increase Lt4 125 mcg daily RTC 4 weeks - TBS on June 14 with TSH/ Free T4 ordered for June 11 Alesia Mallory [facility]06-05-2025 Miscellaneous Notes* Quick Notes - Judit Pimentel APRN.DROSSER - 05/06/2025 8:00 AM EDT EH - S: Yokasta is a 29 year old female who presents at 24w4d for a routine visit. Feeling movement. Denies headache, visual changes, chest pain, shortness of breath, vaginal bleeding, leakage offluid. Some intermittent dysuria - improving. Reports generalized itching that worsens at night. O: See flow sheet Gen: No apparent distress Abd: Gravid, nontender, S=D ASSESSMENT/PLAN: 1. Encounter for supervision of high risk in second trimester, antepartum ([facility]) - ICD9: V23.9, ICD10: O09.92 (primary diagnosis) - Continue PNV and LDA 2. 24 weeks gestation of ([facility]) - ICD9: V22.2, ICD10: Z3A.24 - GTT, CBC, RPR next visit 3. Pyelonephritis complicating , antepartum ([facility]) - ICD9: 646.63, 590.80, ICD10: O23.00 - Admitted again on 04/24 - Renal ultrasound showed no signs of hydronephrosis - Received IB Rocephin, daily Flomax, and maintenance fluids - Vancomycin was addend when Staph aureus returned on urine culture and symptoms had not been improved - Pain was initially poorly controlled Tylenol, oxycodone, flexeril, and morphine - MRI abdomen/pelvis without contrast was obtained with no evidence of obstruction, hydronephritis,or acute abdominal/pelvic pathology - Continue prophylactic 100 mg of Macrobid PO daily for remainder of 4. Hypothyroidism affecting in second trimester ([facility]) - ICD9: 648.13, 244.9, ICD10: O99.282, E03.9 - TSH elevated 4 weeks ago, Synthroid dose adjusted. Taking 100 mcg daily. - Repeat labs today 5. Obesity affecting in second trimester, unspecified obesity type ([facility]) - ICD9: 649.13, ICD10: O99.212 - Pre BMI 41 - Plan for growth and then weekly NSTs starting at 32 weeks. 6. Anemia complicating , second trimester ([facility]) - ICD9: 648.23, 285.9, ICD10: O99.012 - 10.4 hemoglobin. - Start oral iron Pruritus of in second trimester ([facility]) - ICD9: 646.83, 698.9, ICD10: O99.712, L29.9 - Generalized, but does note in palms - Disrupts sleep, trial Benadryl - COMPREHENSIVE METABOLIC PANEL - BILE ACIDS, TOTAL PTL precautions reviewed. RTO in 4 weeks or sooner as needed. Judit Pimentel APRN.FRANK [facility] Progress note* Quick Notes - Judit Pimentel APRN.CNP - 05/06/2025 8:00 AM EDT EH - S: Yokasta is a 29 year old female who presents at 24w4d for a routine visit. Feeling movement. Denies headache, visual changes, chest pain, shortness of breath, vaginal bleeding, leakage offluid. Some intermittent dysuria - improving. Reports generalized itching that worsens at night. O: See flow sheet Gen: No apparent distress Abd: Gravid, nontender, S=D ASSESSMENT/PLAN: 1. Encounter for supervision of high risk in second trimester, antepartum ([facility]) - ICD9: V23.9, ICD10: O09.92 (primary diagnosis) - Continue PNV and LDA 2. 24 weeks gestation of ([facility]) - ICD9: V22.2, ICD10: Z3A.24 - GTT, CBC, RPR next visit 3. Pyelonephritis complicating , antepartum ([facility]) - ICD9: 646.63, 590.80, ICD10: O23.00 - Admitted again on 04/24 - Renal ultrasound showed no signs of hydronephrosis - Received IB Rocephin, daily Flomax, and maintenance fluids - Vancomycin was addend when Staph aureus returned on urine culture and symptoms had not been improved - Pain was initially poorly controlled Tylenol, oxycodone, flexeril, and morphine - MRI abdomen/pelvis without contrast was obtained with no evidence of obstruction, hydronephritis,or acute abdominal/pelvic pathology - Continue prophylactic 100 mg of Macrobid PO daily for remainder of 4. Hypothyroidism affecting in second trimester ([facility]) - ICD9: 648.13, 244.9, ICD10: O99.282, E03.9 - TSH elevated 4 weeks ago, Synthroid dose adjusted. Taking 100 mcg daily. - Repeat labs today 5. Obesity affecting in second trimester, unspecified obesity type ([facility]) - ICD9: 649.13, ICD10: O99.212 - Pre BMI 41 - Plan for growth and then weekly NSTs starting at 32 weeks. 6. Anemia complicating , second trimester ([facility]) - ICD9: 648.23, 285.9, ICD10: O99.012 - 10.4 hemoglobin. - Start oral iron Pruritus of in second trimester ([facility]) - ICD9: 646.83, 698.9, ICD10: O99.712, L29.9 - Generalized, but does note in palms - Disrupts sleep, trial Benadryl - COMPREHENSIVE METABOLIC PANEL - BILE ACIDS, TOTAL PTL precautions reviewed. RTO in 4 weeks or sooner as needed. Judit Pimentel APRN.DROSSER [facility]05-28-2025 NoteHNO ID: [id number] Author: EDOUARD ANDUJAR MD Service: Nursing Author Type: Registered Nurse Type: Procedures Filed: 04/28/2025 09:55 Note Text: Attestation signed by Edouard Andujar MD at 04/28/2025 9:55 AM NST reviewed Interpretation: NST is AGA. No regular uterine activity on tocometer. Impression: Reassuring surveillance Edouard Andujar MD OBSTETRICS NST SUMMARY SERVICE DATE: April 28, 2025 The patient is a 29 year old female, , who is at 23w3d with an CLAUDIO of 08/22/2025, by Last Menstrual Period dating method. NST OBJECTIVE FINDINGS PER NURSE: Start Time: 812 (04/28/25 0850 : Gabriella Ren RN) Complete Time: 08 (04/28/25 0850 : Gabriella Ren RN) Indications: Other: Comment (pyelonephritis) (04/28/25 0850 : Gabriella Ren RN) Patient Reason For: monitor baby (04/28/25 0850 : Gabriella Ren RN) NST Explanation: Procedure Explained, Monitor Explained, Verbalizes Understanding (04/28/25 0850 : Gabriella Ren RN) Acoustic Stimulator: No (04/28/25 0850 : Gabriella Ren RN) Interventions: Other (See Comment) (US adjusted) (04/28/25 0850 : Gabriella Ren RN) MONITORING/ASSESSMENT: Baseline: 145 bpm (04/28/25 0850 : Gabriella Ren RN) Variability: Minimal (detectable but < or equal to 5 bpm) (04/28/25 0850 : Gabriella Ren RN) Accelerations: Absent (04/28/25 0850 : Gabriella Ren RN) Decelerations: Decelerations: None (04/28/25 0850 : Gabriella Ren RN) Contractions: Not present (04/28/25 0850 : Gabriella Ren RN) Frequency: Above information forwarded to Dr. Andujar (04/28/25 0850 : Gabriella Ren RN) for final review and interpretation. SIGNATURE: Gabriella Ren RN PATIENT NAME: Yokasta Pretty DATE: April 28, 2025 TIME: 9:14 [facility]05-28-2025 NoteHNO ID: [id number] Author: EDOUARD ANDUJAR MD Service: Obstetrics Author Type: Resident Type: Progress Notes Filed: 04/28/2025 09:11 Note Text: Attestation signed by Edouard Andujar MD at 04/28/2025 9:11 AM MFM Attending Addendum: I have seen, evaluated and counseled the above patient with Dr. Duque and the antepartum team. I reviewed the documentation and agree with the clinical assessment and medical decision making as noted above with the following addendum/modifications: Patient reports marked improvement in flank pain today. At time of rounds this morning she reported feeling comfortable, denied pain, and had no new questions or concerns. Reports normal FM and denies LOF, VB, abdominal pain, contractions, hematuria, flank pain, dyspnea, palpitations, pleurisy, or any symptoms of Pre-E. ROS otherwise negative. BP 123/59 Pulse 76 Temp 36.2 ?C (97.2 ?F) (Temporal) Resp 16 Ht 172.7 cm (5' 8) Wt 113.4 kg (250 lb) LMP 11/15/2024 (Approximate) SpO2 98% BMI 38.01 kg/m? Systolic (24hrs), Av , Min:108 , Max:136 Diastolic (24hrs), Av, Min:51, Max:60 Mucous membranes moist, sclerae anicteric. Abdomen soft/obese, non-distended, uterus/abdomen non-tender, no rebound. Back without CVAT. Extremities non-tender, trace edema. AM NST AGA and tocometer without regular uterine contractions. Data/labs reviewed - AM CMP and CBC - stable/normal MRI abdomen/pelvis 04/27/25 - IMPRESSION: - No nephrolithiasis or hydronephrosis. - No additional acute finding in the abdomen or pelvis. Impression: Rodgers gestation at 23w3d Pyelonephritis - stable/resolving Persistent flank pain - resolved, reassuring imaging Class 3 obesity Hypothyroidism - on synthroid Anxiety/depression - stable off therapy Plan: and maternal status stable/reassuring. Pyelonephritis resolving and patient has transitioned to oral antibiotic therapy. MRI findings reviewed - reassuring without intraabdominal pathology and patient's symptoms have resolved. Stable for discharge home today. Reviewed recommendation to complete a 14 day course of treatment (macrobid) followed by daily suppressive therapy for remainder of . Pyelonephritis/infectious precautions, PTL precautions, and FM expectations were reviewed. Recommend follow-up with primary OB provider in ~1 week and patient has office visit scheduled in [place] next week. Continue current dose of synthroid, serial TFTs. Precautions reviewed - to return for evaluation with any concerning symptoms. The plan of care was reviewed and discussed with the patient and the provider/nursing teams. All questions answered. Ms. Pretty expressed understanding and agreement with the plan of care. Edouard Andujar MD Time: < 30 minutes dedicated to counseling and coordination of care OBSTETRICS ANTEPARTUM PROGRESS NOTE SERVICE DATE: 04/28/2025 SERVICE TIME: 6:33 AM 29 year old EGA:23w3d admitted for pyelonephritis. Plan of care discussed with: Provider, RN, Patient. Assessment AND Plan Pyelonephritis affecting (HCC) - Admitted 04/24 in the setting of poor pain control and concern for possible nephrolithiasis versus pyelonephritis - Vitals normal, afebrile on presentation and through admission - Pyelonephritis - diagnosis made with positive urine culture and flank pain, nausea/vomiting, and CVA tenderness, typical symptoms of cystitis (dysuria, suprapubic tenderness) - Urine culture: Staph aureus; hall-sensitive susceptibility - With cutlure results, now lower suspicion for nephrolithiasis given imaging without evidence of stones. Notably, prior history of kidney stones, RBC in urine - Serum creatinine, GFR remain within normal limits - no evidence leukocytosis - MRI abdomen/pelvis obtained yesterday to rule out nephrolithiasis/obstruction vs other intra-abdominal pathology given ongoing poorly controlled pain, results pending - notably, main MUCH improved this AM. - No concern for labor at this time, SVE: closed 04/25 Plan - Transitioned to Macrobid BID yesterday, s/p IV ceftriaxone 2g q24hrs, Vancomycin BID - s/p IV fluids 125cc/hr - Regular diet, nausea resolved - zofran and reglan prn - Pain control with Tylenol, Flexeril oxycodone as needed Overall MUCH improved - Oral antibiotic suppression for remainder of at discharge - anticipate discharge today Obesity affecting in second trimester ([facility]) - BMI 38 - SCDs ordered in bed Anxiety disorder affecting , antepartum ([facility]) - Denies any current medication management - Mood stable Hypothyroidism affecting in second trimester ([facility]) - Synthroid 100 mcg daily 23 weeks gestation of ([facility]) NST daily Defer Jas MIMS (more content not included)...[facility] 04-27-2025 NoteHNO ID: [id number] Author: EDOUARD ANDUJAR MD Service: Nursing Author Type: Registered Nurse Type: Procedures Filed: 04/27/2025 10:49 Note Text: Attestation signed by Edouard Andujar MD at 04/27/2025 10:49 AM NST reviewed Interpretation: NST is AGA. No regular uterine activity on tocometer. Impression: Reassuring surveillance Edouard Andujar MD OBSTETRICS NST SUMMARY SERVICE DATE: April 27, 2025 The patient is a 29 year old female, , who is at 23w2d with an CLAUDIO of 08/22/2025, by Last Menstrual Period dating method. NST OBJECTIVE FINDINGS PER NURSE: Start Time: Complete Time: 1013 (04/27/25 1013 : Halina Quintanilla, STACIA) Indications: Other: Comment (Pyleonephrtis) (04/27/25 1013 : Halina Quintanilla, STACIA) Patient Reason For: monitor baby (04/27/25 1013 : Halina Quintanilla, STACIA) NST Explanation: Verbalizes Understanding (04/27/25 1013 : Halina Quintanilla RN) Acoustic Stimulator: Interventions: MONITORING/ASSESSMENT: Baseline: 145 bpm (04/27/25 1013 : Halina Quintanilla, STACIA) Variability: Moderate (6-25 bpm) (04/27/25 1013 : Halina Quintanilla, STACIA) Accelerations: Absent (04/27/25 1013 : Halina Quintanilla RN) Decelerations: Contractions: Not present (04/27/25 1013 : Halina Quintanilla RN) Frequency: Above information forwarded to Dr. Andujar (04/27/25 1013 : Halina Quintanilla RN) for final review and interpretation. SIGNATURE: Halina Quintanilla RN PATIENT NAME: Yokasta Pretty DATE: April 27, 2025 TIME: 10:37 [facility]05-27-2025 NoteHNO ID: [id number] Author: EDOUARD ANDUJAR MD Service: Obstetrics Author Type: Resident Type: Progress Notes Filed: 04/27/2025 09:34 Note Text: Attestation signed by Edouard Andujar MD at 04/27/2025 9:34 AM [facility] Attending Addendum: I have seen, evaluated and counseled the above patient with Dr. Duque and the antepartum team. I reviewed the documentation and agree with the clinical assessment and medical decision making as noted above with the following addendum/modifications: Patient resting comfortably in bed at time of rounds this morning, however continues to report significant left-sided back/flank pain - rating pain 6/10 this morning. Analgesia has provided minimal relief. Reports some radiation to flank/groin. Denies gross hematuria. Reports normal FM and denies LOF, VB, contractions, other abdominal pain, or any symptoms of Pre-E. ROS otherwise negative. BP 119/58 Pulse 80 Temp 36.4 ?C (97.5 ?F) (Temporal) Resp 21 Ht 172.7 cm (5' 8) Wt 113.4 kg (250 lb) LMP 11/15/2024 (Approximate) SpO2 99% BMI 38.01 kg/m? Systolic (24hrs), Av , Min:102 , Max:119 AF and VS stable. Mucous membranes moist, sclerae anicteric. Cardiopulmonary exam non-focal. Abdomen soft/obese, non-distended, uterus/abdomen non-tender, no rebound. Back with mild +CVAT on left side. Extremities non-tender, trace edema. I/O reviewed - UOP appropriate (net +4.4 L for hospitalization) Data/labs reviewed - AM CBC and CMP stable/normal - Ucx 04/24 +S.Aureus - hall-susceptible - Renal US 04/24 - normal - TFTs 04/08/25 - TSH 6.2, fT4 0.7 Impression: Rodgers gestation at 23w2d Pyelonephritis - stable/resolving Persistent flank pain - rule out nephrolithiasis Class 3 obesity Hypothyroidism - on synthroid Anxiety/depression - stable off therapy Plan: and maternal status overall stable/reassuring. Acute pyelonephritis clinically resolving and patient without evidence of progressive infection or pulmonary involvement. Urine culture final and patient on appropriate parenteral antibiotic therapy. Plan to transition to course of oral antibiotics (macrobid) - to complete a total of 14 day treatment course followed by suppressive therapy for remainder of . Patient still with left flank pain out of proportion to clinical findings. While renal US did not demonstrate a stone, recommend additional imaging (MRI) to r/o nephrolithiasis/obstruction, and imaging may also assess for other intraabdominal pathology. Plan to continue supportive measures and can also add flexeril as needed for discomfort. Plan to transition off IV fluid and recommend oral hydration. Regarding hypothyroidism, last TFTs resulted in increase in dose to 75 mcg daily - repeat TFTs in 4 weeks with additional dose titration as indicated. Continue inpatient management. The plan of care was reviewed and discussed with the patient and the provider/nursing teams. All questions answered. Ms. Pretty expressed understanding and agreement with the plan of care. Edouard Andujar MD OBSTETRICS ANTEPARTUM PROGRESS NOTE SERVICE DATE: 04/27/2025 SERVICE TIME: 6:13 AM 29 year old EGA:23w2d admitted for recurrent pyelonephritis. Plan of care discussed with: Provider, RN, Patient. Assessment AND Plan Pyelonephritis affecting (HCC) - Admitted 04/24 in the setting of poor pain control and concern for possible nephrolithiasis versus pyelonephritis - Vitals normal, afebrile on presentation and through admission - Pyelonephritis - diagnosis made with positive urine culture and flank pain, nausea/vomiting, and CVA tenderness, typical symptoms of cystitis (dysuria, suprapubic tenderness) - Urine culture: Staph aureus; susceptibility results pending - With cutlure results, now lower suspicion for nephrolithiasis given imaging without evidence of stones. Notably, prior history of kidney stones, RBC in urine - Serum creatinine, GFR within normal limits - No concern for labor at this time, SVE: closed 04/25 Plan - IV ceftriaxone 2g q24hrs, Vancomycin BID - pain persists -07/11 - IV fluids 125cc/hr > anticipate de-escalation to 75cc/hr today given improved UOP - Regular diet, nauseous with eating. Slightly improved overnight but still tolerating minimal po intake - zofran and reglan prn - Flomax daily - Pain control with Tylenol, oxycodone as needed - required morphine x1 yesterday - consider addition of Flexeril, lidocaine patch - If pain continues to be severe without improvement, consider CT AP vs Urogram, Urology consult - Oral Keflex 500 mg daily for remainder of at discharge Obesity affecting in second trimester (HCC) - BMI 38 - SCDs ordered in bed, patient declining them, encoura (more content not included)...[facility]05-26-2025 NoteHNO ID: [id number] Author: SIMEON SOLIS DO Service: Obstetrics Author Type: Resident Type: Plan of Care Filed: 04/26/2025 15:50 Note Text: Patient has now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 [place], [place] - [phone]; [address] [facility] 201 [facility] [phone] In-Person GROUPS INDIVIDUAL THERAPY MATERNAL- MENTAL HEALTH MEDICATION MANAGEMENT PLAY AND ART THERAPY TELETHERAPY https://www.Albumatic/services/ [facility]? [address] [place], [place] [address] ? [place] [address] [facility], [address] [place], [place] [address] ? ASTUD[place]O [address] [place], [place] [address]? Grief Support Groups Individual Grief Counseling Spiritual Care Memorial Events https://aldrich.[facility].org/grief-services [facility] [address] [place], [place] [address]; ; Email: [email or web address] Women's Mental Health; Couples Counseling; Trauma (EMDR); Stress Management; Mood and Anxiety Related Disorders- and much more https://www.XTWIPcochinle comprehensive health care facilitySyndicatePlus/ LifeStance Numerous as they have contract providers: access website to find specific providers nearyou Counseling including CBT and EMDR as well as many more modalities; Medication Management; Telehealth and In-Person https://Bluedot Innovation/ [facility] Wellness [address] [place], [place] [address]; [phone] Personal, Family and Group Therapy; Psychological Testing and Diagnosis; Medication Management; Life and Career Coaching; Psychoanalysis; Literacy Testing; Yoga and Meditation https://Navmii.Mitochon Systems/ Fit Mind [place] [address] [facility] [address] [address] [address] ; [address] [facility], [address] [place] [address]; Office # for both sites: Individual and Couples Counseling https://www.Altammune.Mitochon Systems/paymentinsurance.html OCD & Anxiety Joint venture between [facility] [address] [facility], [address], [place] [address]; Specialize in Cognitive-Behavioral Therapy (CBT) for the treatment of anxiety disorders across the lifespan. TELEHEALTH ONLY. https://ocdandanxietycentEsperance Pharmaceuticals/faqs [facility] [address] [facility] 6th [place], [address], [address] [place] [address] [place], [address] [place] [address] [place], [address], [id number] [place] [address] [place], [address] [place] [address] [place], [place], [id number] Transportation Services To minimize patient barriers, [facility] provides transportation services to patients who qualify. If you are unable to get to your appointment at any of our facilities, please let us know. Need help now? Stop by one of our walk-in clinics to establish behavioral health care. Counseling Indvidual, Group, Couples and Family Counseling and EMDR. Medication Management Case Management benefits applications housing assistance Substance abuse treatment Medication assisted treatment https://www.[facility].org/mental-health/ [facility] OFFICE AT [facility] [address] [place] [address] [facility] [address] [place] [address] [facility] OFF[facility] [address] [place] [address] [place] OFFICE (at [facility]) [address] [place] [address] [facility] EXCHANGE PROGRAM & HIV SCREENING [address] [place] [address] [facility]CH[facility]GRAM [address] [place] [address] Behavioral Health Urgent Care: [facility] Sites Counseling Indvidual and Group Medication Management Case Management benefits applications housing assistance Substance abuse treatment Medication assisted treatment Employment Services/ Job Training https://theCastlerock Recruitment GroupmoThinkVidya.org/ Recovery Resources [address] [place], [place] [address]: P: [phone] [address] [facility], [address] [address] P: [phone] Our services include: Addiction Mental Health Treatment Assessment Psychiatry Medical Care Employment Housing Drug and Alcohol Prevention HIV/AIDS Prevention https://www.[facility].org/ [facility] [place] [address] [place] [address] [place] [address] [place], [place] [address] [place] [address] [place] [address] [place] [address] [facility] [address] [place] [address] [place] [address] TMS Therapy/ Counseling Psychocological Testing for ADHD Medication Management In-Person/ Telemedicine https://www.Violet/patients-depression Memory & Psychological services [address] [place] [address], [place] [address] Neuropsychological Testing For ADHD https://www.memoryandpsych.com/ The Counsel[facility] - Main Office [address] [place] [id number] [id number] Providing qqph-ie-rkvj and telehealth services. Adult Case Management Community Education and Prevention Employment Outpatient Treatment - Counseling & Psychotherapy Psychiatric Services http://www.ccwhc.org/ [facility] [place] [address] [place] [address] [facility]) [address] [place] [address] Virtual Appointments! Now offering safe and convenient virtual client appointments to anyone in [place]! Individual Therapy Couples/Relationship Therapy Trauma/EMDR Therapy Art Therapy Play Therapy Monkey Keeper Support: Parenting Skills, Parent Child Interaction Therapy, Parent Infant Interaction Therapy Meditation Dietitian/Heat Treat Furnace Operator Services Group Therapy Yoga https://www.Mayne Pharma.Mitochon Systems/ Iliana Conley [phone] Private Practice: Telehealth Only Specializes in EMDR for Trauma None documented in this encounterMartin [facility]02-[facility]25 Telephone encounter Note * Telephone Encounter - Sanaz Arredondo RN - 01/04/2025 2:59 PM EST Patient notified and voiced understanding. Appointment changed to in office and appointment notes updated to get title 19. Sanaz Arredondo RN [facility]02-[facility] Miscellaneous Notes* Telephone Encounter - Sanaz Arredondo RN - 01/04/2025 2:59 PM EST Patient notified and voiced understanding. Appointment changed to in office and appointment notes updated to get title 19. Sanaz Arredondo RN * Telephone Encounter - Kelly Lundberg RN - 01/04/2025 2:48 PM EST Left message for patient to call office. See note below, she has not signed title 19. Kelly Lundberg RN * Telephone Encounter - Kelly Lundberg RN - 01/04/2025 2:47 PM EST ----- Message from Radha Rowell MD sent at 01/04/2025 2:22 PM EST ----- Scheduled for VV to discsuss tubal. has she signed title 19? If not make sure she knows has to be 30 days from then for tubal. It is only good for 30 days to 180 days after signature. RLR [facility] Telephone encounter Note * Telephone Encounter - Kelly Lundberg RN - 01/04/2025 2:48 PM EST Left message for patient to call office. See note below, she has not signed title 19. Klely Lundberg RN [facility]02-03-2025 Telephone encounter Note* Telephone Encounter - Kelly Lundberg RN - 01/04/2025 2:47 PM EST ----- Message from Radha Rowell MD sent at 01/04/2025 2:22 PM EST ----- Scheduled for VV to discsuss tubal. has she signed title 19? If not make sure she knows has to be 30 days from then for tubal. It is only good for 30 days to 180 days after signature. RLR [facility]01-22-2025 NoteHNO ID: [id number] Author: ARI BLUM APRN.CNM Service: ? Author Type: Seasoner Type: Progress Notes Filed: 12/23/2024 16:07 Note Text: CONTRACEPTION Yokasta Pretty is a 29 year old who presents today for contraception counseling. She initially was thinking about and IUD but has decided that she would like her tubes removed. Patient's last menstrual period was 01/23/2023 (exact date).. HPI: Dysmenorrhea No Heavy menses No Irregular menses Yes- has skipped months at a time. Dx PCOS SUBJECTIVE Sexually active: Yes Smoking No Last PAP OB- negative Method of control: condoms unsatisfactory Methods tried previously: oral contraceptives unsatisfactory Patient currently interested in: tubal ligation Interested in in the next 3 years? No Date of last test: Not applicable Date of last STD testing? N/a Relevant Past Medical History: History of migraines, obesity OB History T2 L2 SAB2 IAB0 Ectopic0 Multiple0 Live Births2 PAST MEDICAL HISTORY Diagnosis Date Anxiety Asthma Bipolar depression (HCC) Depression Fatty liver depression PAST SURGICAL HISTORY Procedure Laterality Date LAPAROSCOPIC CHOLECYSTECTOMY PAST SURGICAL HISTORY OF wisdom teeth TONSILLECTOMY AND ADENOIDECTOMY FAMILY HISTORY Problem Relation Age of Onset Hypertension Mother No Known Problems Father No Known Problems Maternal Grandmother Lung Cancer Maternal Grandfather Heart Attack Paternal Grandmother Stroke Paternal Grandmother No Known Problems Paternal Grandfather ADD/ADHD Half-sister ADD/ADHD Half-sister ADD/ADHD Half-brother No Known Problems Half-brother No Known Problems Half-brother No Known Problems Half-brother No Known Problems Half-brother No Known Problems Half-brother No Known Problems Half-brother No Known Problems Half-brother No Known Problems Half-brother SOCIAL HISTORY Social History Tobacco Use Smoking status: Former Current packs/day: 0.00 Types: Cigarettes Start date: 04/08/2015 Quit date: 04/08/2020 Years since quittin.7 Smokeless tobacco: Never Vaping Use Vaping status: Former Quit date: 12/25/2022 Substances: Nicotine Substance Use Topics Alcohol use: Not Currently Comment: Socially Drug use: Never PAST SURGICAL HISTORY Procedure Laterality Date LAPAROSCOPIC CHOLECYSTECTOMY PAST SURGICAL HISTORY OF wisdom teeth TONSILLECTOMY AND ADENOIDECTOMY Current Outpatient Medications Medication Sig omeprazole (PRILOSEC) 20 mg capsule Take 1 capsule by mouth once daily. acetaminophen (TYLENOL) 500 mg tablet Take by mouth. VENTOLIN HFA 90 mcg/actuation inhaler No current facility-administered medications for this visit. Allergies As of Date: 12/23/2024 Allergen Noted Reaction HAMZAHFBon [ARIPIPRAZOLE] 03/05/2016 Hives Fully Assessed 11/30/2024 SENSITIVE EXAM: Sensitive exam not performed. OBJECTIVE: General Appearance: Well appearing, alert, in no acute distress, well-hydrated, well nourished. and Obese ASSESSMENT/PLAN: 1. 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 BMI 40.0-44.9, adult (HCC) 3. History of PCOS - Just starting weight loss program - Metformin 500 mg PO Daily - Semaglutide injections- just starting - Desires sterilization - RTO - virtual visit with Dr. Rowell to discuss/schedule (per patient's choice) Ari Blum APRN.[facility]01-22-2025 History of Present illness Narrative* Ari Blum APRN.MOLINA - 12/23/2024 3:23 PM EST CONTRACEPTION Yokasta Pretty is a 29 year old who presents today for contraception counseling. She initially was thinking about and IUD but has decided that she would like her tubes removed. Patient's last menstrual period was 01/23/2023 (exact date).. HPI: Dysmenorrhea No Heavy menses No Irregular menses Yes- has skipped months at a time. Dx PCOS SUBJECTIVE Sexually active: Yes Smoking No Last PAP 2022- [place] OB- negative Method of control: condoms unsatisfactory Methods tried previously: oral contraceptives unsatisfactory Patient currently interested in: tubal ligation Interested in in the next 3 years? No Date of last test: Not applicable Date of last STD testing? N/a Relevant Past Medical History: History of migraines, obesity OB History T2 L2 SAB2 IAB0 Ectopic0 Multiple0 Live Births2 PAST MEDICAL HISTORY Diagnosis Date Anxiety Asthma Bipolar depression (HCC) Depression Fatty liver depression PAST SURGICAL HISTORY Procedure Laterality Date LAPAROSCOPIC CHOLECYSTECTOMY PAST SURGICAL HISTORY OF wisdom teeth TONSILLECTOMY & ADENOIDECTOMY <AGE 14 FAMILY HISTORY Problem Relation Age of Onset Hypertension Mother No Known Problems Father No Known Problems Maternal Grandmother Lung Cancer Maternal Grandfather Heart Attack Paternal Grandmother Stroke Paternal Grandmother No Known Problems Paternal Grandfather ADD/ADHD Half-sister ADD/ADHD Half-sister ADD/ADHD Half-brother No Known Problems Half-brother No Known Problems Half-brother No Known Problems Half-brother No Known Problems Half-brother No Known Problems Half-brother No Known Problems Half-brother No Known Problems Half-brother No Known Problems Half-brother SOCIAL HISTORY Social History Tobacco Use Smoking status: Former Current packs/day: 0.00 Types: Cigarettes Start date: 04/08/2015 Quit date: 04/08/2020 Years since quittin.7 Smokeless tobacco: Never Vaping Use Vaping status: Former Quit date: 12/25/2022 Substances: Nicotine Substance Use Topics Alcohol use: Not Currently Comment: Socially Drug use: Never PAST SURGICAL HISTORY Procedure Laterality Date LAPAROSCOPIC CHOLECYSTECTOMY PAST SURGICAL HISTORY OF wisdom teeth TONSILLECTOMY & ADENOIDECTOMY <AGE 14 Current Outpatient Medications Medication Sig omeprazole (PRILOSEC) 20 mg capsule Take 1 capsule by mouth once daily. acetaminophen (TYLENOL) 500 mg tablet Take by mouth. VENTOLIN HFA 90 mcg/actuation inhaler No current facility-administered medications for this visit. Allergies As of Date: 12/23/2024 Allergen Noted Reaction ABILIFY [ARIPIPRAZOLE] 03/05/2016 Hives Fully Assessed 11/30/2024 SENSITIVE EXAM: Sensitive exam not performed. OBJECTIVE: General Appearance: Well appearing, alert, in no acute distress, well-hydrated, well nourished. andObese ASSESSMENT/PLAN: 1. 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 BMI 40.0-44.9, adult (HCC) 3. History of PCOS - Just starting weight loss program - Metformin 500 mg PO Daily - Semaglutide injections- just starting - Desires sterilization - RTO - virtual visit with Dr. Rowell to discuss/schedule (per patient's choice) Ari Blum APRN.CNM documented in this encounterMartin [facility]12-30-[facility]24 NoteHNO ID: [id number] Author: MEG BETTENCOURT MD Service: ? Author Type: Physician Type: Progress Notes Filed: 11/30/2024 16:07 Note Text: Patient presents with: Urinary Problem: Nausea, burning, frequency, lower back pain x 2 weeks HPI: Symptoms for 2 weeks; worsened the last 3 days. Dysuria: Yes Frequency: Yes Hematuria: No Nausea: Yes. Has diarrhea, no vomiting. Fever or chills: no fever; feeling dizzy and confused Back pain: right flank Abdominal pain: Yes Prior UTI: Yes Personal history of kidney stones: Yes PAST MEDICAL HISTORY Diagnosis Date Anxiety Asthma Bipolar depression (HCC) Depression Fatty liver depression PAST SURGICAL HISTORY Procedure Laterality Date LAPAROSCOPIC CHOLECYSTECTOMY PAST SURGICAL HISTORY OF wisdom teeth TONSILLECTOMY AND ADENOIDECTOMY MEDICATIONS: Current Outpatient Medications Medication Sig omeprazole (PRILOSEC) 20 mg capsule Take 1 capsule by mouth once daily. acetaminophen (TYLENOL) 500 mg tablet Take by mouth. VENTOLIN HFA 90 mcg/actuation inhaler No current facility-administered medications for this visit. ALLERGIES: ALLERGIES Allergen Reactions Abilify [Aripiprazo* Hives VITALS: BP 132/68 Pulse 103 Temp 37.4 ?C (99.3 ?F) Resp 22 Wt 124.1 kg (273 lb 9.5 oz) LMP 01/23/2023 (Exact Date) SpO2 100% BMI 41.60 kg/m? PHYSICAL EXAM: GEN: NAD; accompanied by her HEENT: EOMI, conjunctiva clear, HEART: borderline fast rate, regular rhythm, no murmurs LUNGS: clear to auscultation, no wheezes or crackles, no increased WOB ABDOMEN: Soft, nondistended, no masses, suprapubic and right lateral tenderness BACK: right CVA and lumbar tenderness ASSESSMENT/PLAN: 1. Urinary frequency - ICD9: 788.41, ICD10: R35.0 (primary diagnosis) 2. Acute right flank pain - ICD9: 789.09, 338.19, ICD10: R10.9 3. Dizziness - ICD9: 780.4, ICD10: R42 - UA DIP, URINE (POC) -positive for blood, leukocyte esterase, protein, nitrite. Flank pain, borderline fever, tachycardia, nausea and confusion. Advised further evaluation in the emergency room where imaging and lab can delineate UTI from pyelonephritis, renal calculus, and appendicitis. Her will take her to [facility] ED. Meg Bettencourt [facility]12-30-2024 History of Present illness Narrative* Meg Bettencourt MD - 11/30/2024 3:46 PM EST Patient presents with: Urinary Problem: Nausea, burning, frequency, lower back pain x 2 weeks HPI: Symptoms for 2 weeks; worsened the last 3 days. Dysuria: Yes Frequency: Yes Hematuria: No Nausea: Yes. Has diarrhea, no vomiting. Fever or chills: no fever; feeling dizzy and confused Back pain: right flank Abdominal pain: Yes Prior UTI: Yes Personal history of kidney stones: Yes PAST MEDICAL HISTORY Diagnosis Date Anxiety Asthma Bipolar depression (HCC) Depression Fatty liver depression PAST SURGICAL HISTORY Procedure Laterality Date LAPAROSCOPIC CHOLECYSTECTOMY PAST SURGICAL HISTORY OF wisdom teeth TONSILLECTOMY & ADENOIDECTOMY <AGE 14 MEDICATIONS: Current Outpatient Medications Medication Sig omeprazole (PRILOSEC) 20 mg capsule Take 1 capsule by mouth once daily. acetaminophen (TYLENOL) 500 mg tablet Take by mouth. VENTOLIN HFA 90 mcg/actuation inhaler No current facility-administered medications for this visit. ALLERGIES: ALLERGIES Allergen Reactions Abilify [Aripiprazo* Hives VITALS: BP 132/68 Pulse 103 Temp 37.4 C (99.3 F) Resp 22 Wt 124.1 kg (273 lb 9.5 oz) LMP 01/23/2023 (Exact Date) SpO2 100% BMI 41.60 kg/m PHYSICAL EXAM: GEN: NAD; accompanied by her HEENT: EOMI, conjunctiva clear, HEART: borderline fast rate, regular rhythm, no murmurs LUNGS: clear to auscultation, no wheezes or crackles, no increased WOB ABDOMEN: Soft, nondistended, no masses, suprapubic and right lateral tenderness BACK: right CVA and lumbar tenderness ASSESSMENT/PLAN: 1. Urinary frequency - ICD9: 788.41, ICD10: R35.0 (primary diagnosis) 2. Acute right flank pain - ICD9: 789.09, 338.19, ICD10: R10.9 3. Dizziness - ICD9: 780.4, ICD10: R42 - UA DIP, URINE (POC) -positive for blood, leukocyte esterase, protein, nitrite. Flank pain, borderline fever, tachycardia, nausea and confusion. Advised further evaluation in the emergency room where imaging and lab can delineate UTI from pyelonephritis, renal calculus, and appendicitis. Her will take her to [facility] ED. Meg Bettencourt MD documented in this encounterMartin [facility]09-17-2024 NoteHNO ID: [id number] Author: NIGHAT QIU APRN.FRANK Service: ? Author Type: Nurse Practitioner Type: Progress Notes Filed: 08/18/2024 19:30 Note Text: Called to triage patient for allergic reaction Endorses that she developed rash on face at around 0530 this morning Presents stating that she is having sensations that her throat is swelling up Discussed limitations of express care [facility] of Present illness Narrative* Nighat Qiu APRN.FRANK - 08/18/2024 7:29 PM EDT Called to triage patient for allergic reaction Endorses that she developed rash on face at around 0530 this morning Presents stating that she is having sensations that her throat is swelling up Discussed limitations of express care Referred to ED for further monitoring documented in this encounterMartin [facility]04-24-2024 History of Present illness Narrative* Rosalba Boswell RT(R) - 03/25/2024 8:00 AM EDT Radiology Service Progress Note PATIENT NAME: Yokasta Pretty DATE OF SERVICE: March 25, 2024 TIME: 8:02 AM PATIENT IDENTITY VERIFICATION COMPLETED USING TWO (2) IDENTIFIERS: Name and Date of confirmedby patient verbally. FALL SCREENING: Has the patient had 2 falls in the last year or 1 fall with injury or currently using an Ambulatory Assistive Device (Walker, Cane, Wheelchair, Crutches, etc.)? No PATIENT GENDER DATA: Female. status: : No status: NO. PATIENT RELEVANT IMPLANT DATA REVIEWED: Not Applicable PATIENT PRESENTS WITH AN IMPLANTABLE OR ATTACHED PET CARE WORKER: No RADIOLOGY DEPARTMENT: General X-ray: Exam(s) Completed: Chest X-Ray PERIPHERAL IV DATA: Not applicable SIGNED BY: RT Monique(R) March 25, 2024 8:02 AM documented in this encounterMartin [facility]04-24-2024 History of Present illness Narrative* Nighat Qiu APRN.CNP - 03/25/2024 7:50 AM EDT This note was created using NoteWriter. Subjective Yokasta Pretty is a 28 year old female. 28 year old female with PMH asthma presents for illness. 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 The history is provided by the patient. No transmissions systems operator was used. Sore Throat This is a new problem. The current episode started in the past 7 days. The problem has been unchanged. Neither side of throat is experiencing more pain than the other. There has been no fever. The pain is at a severity of 6/10. The pain is moderate. Associated symptoms include congestion, coughing,diarrhea, headaches, neck pain and swollen glands. Pertinent negatives include no abdominal pain, drooling, ear discharge, ear pain, hoarse voice, plugged ear sensation, shortness of breath, stridor,trouble swallowing or vomiting. She has had no exposure to strep or mono. She has tried acetaminophen for the symptoms. The treatment provided mild relief. PAST MEDICAL HISTORY Diagnosis Date Anxiety Asthma Bipolar depression (HCC) Depression Fatty liver depression PAST SURGICAL HISTORY Procedure Laterality Date LAPAROSCOPIC CHOLECYSTECTOMY PAST SURGICAL HISTORY OF wisdom teeth TONSILLECTOMY & ADENOIDECTOMY <AGE 14 ALLERGIES Abilify [Aripiprazole] MEDICATIONS hydrOXYzine pamoate (VISTARIL) 25 mg capsule Take 1 capsule by mouth three times daily as needed. omeprazole (PRILOSEC) 20 mg capsule Take 1 capsule by mouth once daily. acetaminophen (TYLENOL) 500 mg tablet Take by mouth. VENTOLIN HFA 90 mcg/actuation inhaler PNV Comb No.50-Oclc-Atcyl Acid (PRENATABS FA) 29-1 mg tab Take by mouth. (Patient not taking: Reported on 03/25/2024) FAMILY HISTORY Problem Relation Age of Onset Hypertension Mother No Known Problems Father No Known Problems Maternal Grandmother Lung Cancer Maternal Grandfather Heart Attack Paternal Grandmother Stroke Paternal Grandmother No Known Problems Paternal Grandfather ADD/ADHD Half-sister ADD/ADHD Half-sister ADD/ADHD Half-brother No Known Problems Half-brother No Known Problems Half-brother No Known Problems Half-brother No Known Problems Half-brother No Known Problems Half-brother No Known Problems Half-brother No Known Problems Half-brother No Known Problems Half-brother Social History Tobacco Use Smoking status: Former Years: 5 Types: Cigarettes Quit date: 04/08/2020 Years since quittin.9 Smokeless tobacco: Never Vaping Use Vaping Use: Former Quit date: 12/25/2022 Substances: Nicotine Substance Use Topics Alcohol use: Not Currently Comment: Socially Drug use: Never Review of Systems Constitutional: Positive for appetite change and fatigue. Negative for activity change and fever. HENT: Positive for congestion, rhinorrhea and sore throat. Negative for drooling, ear discharge, ear pain, hoarse voice, sinus pressure, sinus pain and trouble swallowing. Eyes: Negative for pain, discharge, redness and itching. Respiratory: Positive for cough. Negative for shortness of breath and stridor. Cardiovascular: Negative for chest pain, palpitations and leg swelling. Gastrointestinal: Positive for diarrhea. Negative for abdominal pain and vomiting. Musculoskeletal: Positive for neck pain. Negative for arthralgias, back pain and gait problem. Skin: Negative for color change, pallor, rash and wound. Allergic/Immunologic: Negative for environmental allergies, food allergies and immunocompromised state. Neurological: Positive for headaches. Negative for dizziness and facial asymmetry. Hematological: Positive for adenopathy. Psychiatric/Behavioral: Negative for agitation, behavioral problems and confusion. Objective BP 124/72 Pulse 98 Temp 36.7 C (98 F) Resp 18 Wt 126 kg (277 lb 12.5 oz) LMP 01/23/2023 (Exact Date) SpO2 99% BMI 42.24 kg/m Physical Exam Vitals and nursing note reviewed. Constitutional: General: She is not in acute distress. Appearance: Normal appearance. She is obese. She is not ill-appearing, toxic- appearing or diaphoretic. HENT: Head: Normocephalic and atraumatic. Right Ear: Ear canal and external ear normal. Left Ear: Ear canal and external ear normal. Nose: Congestion present. No rhinorrhea. Mouth/Throat: Mouth: Mucous membranes are moist. Pharynx: Posterior oropharyngeal erythema present. No oropharyngeal exudate. Eyes: General: Right eye: No discharge. Left eye: No discharge. Extraocular Movements: Extraocular movements intact. Conjunctiva/sclera: Conjunctivae normal. Pupils: Pupils are equal, round, and reactive to light. Cardiovascular: Rate and Rhythm: Normal rate and regular rhythm. Pulses: Normal pulses. Heart sounds: Normal heart sounds. No murmur heard. No friction rub. Pulmonary: Effort: Pulmonary effort is normal. No respiratory distress. Breath sounds: Normal breath sounds. No stridor. No wheezing, rhonchi or rales. Chest: Chest wall: No tenderness. Abdominal: General: Abdomen is flat. There is no distension. Palpations: Abdomen is soft. There is no mass. Tenderness: There is no abdominal tenderness. There is no right CVA tenderness, left CVA tenderness, guarding or rebound. Hernia: No hernia is present. Musculoskeletal: General: No swelling, tenderness, deformity or signs of injury. Normal range of motion. Cervical back: Normal range of motion and neck supple. No rigidity. Right lower leg: No edema. Left lower leg: No edema. Lymphadenopathy: Cervical: Cervical adenopathy present. Skin: General: Skin is warm and dry. Capillary Refill: Capillary refill takes less than 2 seconds. Coloration: Skin is not jaundiced or pale. Findings: No bruising, erythema, lesion or rash. Neurological: General: No focal deficit present. Mental Status: She is alert and oriented to person, place, and time. Cranial Nerves: No cranial nerve deficit. Sensory: No sensory deficit. Motor: No weakness. Coordination: Coordination normal. Gait: Gait normal. Psychiatric: Mood and Affect: Mood normal. Behavior: Behavior normal. Thought Content: Thought content normal. Judgment: Judgment normal. Assessment and Plan ASSESSMENT/PLAN: 1. URI, acute - ICD9: 465.9, ICD10: J06.9 (primary diagnosis) X 2 days - Discussed viral etiology and rationale for treatment. - Group A strep molecular testing negative - Symptomatic treatment with prn analgesia - Supportive care with fluids and rest - The patient may also use OTC cough and cold meds as needed and warm salt water gargles, throat lozenges and/or OTC throat spray as needed. - Follow up in 3-5 days if symptoms persist or sooner if worsening of symptoms - COVID & INFLUENZA A/B & RSV NAAT, ROUTINE - XR CHEST 2V FRONTAL/LAT-negative for acute process 2. Acute cough - ICD9: 786.2, ICD10: R05.1 X 2 days No red flags - COVID & INFLUENZA A/B & RSV NAAT, ROUTINE - XR CHEST 2V FRONTAL/LAT Nighat Qiu APRN.DROSSER documented in this encounterMartin [facility]11-16-[facility]23 Discharge summary Author Ari Blum [facility] October 17, 2023 7:19am Note Date/Time October 17, 2023 7:16am [facility] Medical Records Department [address] [place] [id number] Discharge Summary 10/17/23 0714 MR#: [id number] Acct: [id number] Name: YOKASTA PRETTY Rep #:[id number] : 1995 28 From: Ari AUGUSTE PCP: Dr. Magnolia Chen MD Status:ADM IN Location: [place] [address] Providers Date of Admission: 10/15/23 Primary Care Physician: Dr. Magnolia Chen MD Reason For Visit: VAG Diagnosis Discharge Diagnosis (1) Lactating mother: Status: Acute Code(s): Z39.1 - Encounter for care and examination of lactating mother (2) Vaginal delivery: Status: Acute Code(s): O80 - Encounter for full-term uncomplicated delivery (3) Positive GBS test: Status: Acute Code(s): B95.1 - Streptococcus, group B, as the cause of diseases classified elsewhere (4) History of depression: Status: Acute Code(s): Z87.59 - Personal history of other complications of , childbirth and the puerperium; Z86.59 - Personal history of other mental and behavioral disorders (5) Obesity: Status: Acute Code(s): E66.9 - Obesity, unspecified Plan PPD 2 - Intact Routine care Pain control support D/C home today with follow up in office Medications at Discharge Home Medications [id number]-FA 1 mg tablet 1 tab PO DAILY 05/04/23 nitrofurantoin monohydrate/macrocrystals 100 mg capsule (Macrobid) 100 mg PO DAILY frequent UTI's 09/22/23 albuterol 90 mcg/actuation aerosol inhaler mcg inhalation PRN asthma 10/10/23 acetaminophen 500 mg tablet 1,000 mg (2 x 500 mg) PO Q6H PRN PRN Pain 1-10 Or Fever #0 tabs 10/17/23 ibuprofen 600 mg tablet 600 mg PO Q6H PRN PRN Pain Score 1-3 #0 tabs 10/17/23 Hospital Course Operations None Procedures None Summary of Care Provided Minutes Spent on Discharge: 15 Hospital Course: Patient had . Hospital course was uneventful. Physical Exam Narrative Patient seen at bedside. Denies any pain. Ambulating and voiding without difficulty. Lochia decreased. Desires discharge home today. Const alert and no apparent distress General Appearance: cooperative and comfortable Exam Limitations: no limitations HEENT normocephalic Eyes General Eye: normal appearance of both eyes Neck full ROM General: normal visual inspection Chest Chest: symmetrical chest wall rise Resp normal respiratory effort and normal air movement Effort and Inspection: symmetric chest movement Auscultation: clear to auscultation bilaterally Cardio regular rate and regular rhythm GI normal to inspection, nondistended, normoactive bowel sounds Back/Spine normal ROM Extremity full ROM and no calf tenderness General Extremity: normal exam except as noted Skin no rashes or lesions noted Neuro CN's II-XII intact bilaterally Psych mental status grossly normal Weight / BMI Weight Weight: 264 lb 12.403 oz Body Mass Index (BMI) 40.2 ABG / Lab / Microbiology Data 10/16/23 03:40 D/C Instructions Discharge Diet: No restrictions May resume sexual activity in: 6-8 weeks Weight Bearing Status: Weight bearing as tolerated Call your doctor if you observe: Fever of 101 or Higher, Inability to urinate, Using more than 1 pad per hour, Shortness of breath, Chest pain, Calf discomfortand Uncontrolled pain Please Follow Up With: Ari Blum CNM When: 2 weeks virtual visit/ 6 weeks in office Meaningful Use Info Meaningful Use Diagnoses (Choose all that apply): None applicable Discharge Plan Admission Admit Date/Time: 10/15/23 11:25 Primary Reason for Your Visit: Labor and Delivery Attending Provider: Nighat Maloney Primary Care Provider: Magnolia Chen Discharge Orders/Prescriptions Prescriptions: New acetaminophen 500 mg Tablet 1,000 mg PO Q6H PRN PRN (Reason: Pain 1-10 Or Fever) Qty: 0 0RF ibuprofen 600 mg Tablet 600 mg PO Q6H PRN PRN (Reason: Pain Score 1-3) Qty: 0 0RF Continued miutfknd-fjo-Oy-FA 1 mg Tablet 1 tab PO DAILY nitrofurantoin monohyd/m-cryst [Macrobid] 100 mg capsule 100 mg PO DAILY albuterol 90 mcg/actuation aerosol inhalation PRN (Reason: asthma) Referrals / Follow Up: Magnolia Chen MD [Primary Care Provider] - Disposition Disposition (needs filled in before D/C Order can be placed): Home, Self Care 10/17/23 5119 <Electronically signed by Ari Blum CNM> Cosigner Signature (if applicable): CC: SHANITA Blum; Dr. Magnolia Chen MD~ Signed [facility] Work Phone: 1(528) 310-134911-15-2023 Progress note Author Ari Blum [facility] 2023 8:24am Note Date/Time 2023 8:24am [facility] Medical Records Department [address] [place] [address] Progress Note - OBGYN 10/16/23821 MR#: [id number] Acct: [id number] Name: YOKASTA PRETTY Rep #:[id number] : 1995 From: Ari Blum CNM PCP: Dr. Magnolia Chen MD Status:ADM IN Location: [place] [address] Subjective Subjective Patient seen at bedside. Ambulating and voiding without difficulty. Breast feeding with minimum support. Denies any headache, dizziness, SOB, or CP. Desires discharge home tomorrow. Objective Data Objective Data Vital Signs: Vital Signs Temp Pulse Resp BP Pulse Ox O2 Del Method 97 F L 80 16 107/59 L 97 Room Air 10/16/23 04:46 10/16/23 04:46 10/16/23 04:46 10/16/23 04:46 10/16/23 00:17 10/16/23 04:46 Oxygen Delivery Method Room Air Weight: 264 lb 12.403 oz Body Mass Index (BMI) 40.2 Intake & Output: Intake and Output for Last 24 Hours 10/14/23 10/15/23 10/16/23 23:59 23:59 23:59 Intake Total 1436.66 / 1436.66 Output Total 750 / 750 Balance 686.66 / 686.66 Lab / Micro Data 10/16/23 03:40 Labs: Laboratory Results - last 24 hr 10/15/23 10:50: Vag Amniotic Fld Detect POSITIVE H 10/15/23 12:25: WBC 14.2 H, RBC 4.05 L, Hgb 11.4 L, Hct 35.5 L, MCV 87.7, MCH 28.1, MCHC 32.1, RDW Std Deviation 49.3 H, RDW Coeff of Leonor 15.4 H, Plt Count 360, MPV 10.2, Immature Gran % (Auto) 0.600, Neut % (Auto) 85.5 H, Lymph % (Auto) 7.9 L, Robeson % (Auto) 5.2, Eos % (Auto) 0.4, Baso % (Auto) 0.4, Absolute Neuts (auto) 12.1 H, Absolute Lymphs (auto) 1.12, Nucleated RBC % 0, Syphilis Total Ab Non-reactive, Blood Type O POSITIVE, Antibody Screen NEGATIVE 10/16/23 03:40: WBC 15.1 H, RBC 3.46 L, Hgb 9.6 L, Hct 30.5 L, MCV 88.2, MCH 27.7, MCHC 31.5 L, RDW Std Deviation 49.1 H, RDW Coeff of Leonor 15.4 H, Plt Count 304, MPV 10.1, Immature Gran % (Auto) 0.500, Neut % (Auto) 81.4 H, Lymph % (Auto) 11.2 L, Robeson % (Auto) 6.5, Eos % (Auto) 0.2, Baso % (Auto) 0.2, Absolute Neuts (auto) 12.3 H, Absolute Lymphs (auto) 1.69, Nucleated RBC % 0 ROS Eyes Eyes: Denies blurry vision, change in vision or spots in vision ENT HEENT: Denies dizziness or headache(s) Cardiovascular Cardiovascular: Denies abdominal pain, chest pain or dyspnea Respiratory/Chest Respiratory/Chest: Denies cough, dyspnea, shortness of breath at rest or shortness of breath with exertion Gastrointestinal Gastrointestinal: Denies abdominal pain, diarrhea or vomiting Genitourinary Genitourinary: Denies change in urinary stream, difficulty urinating or dysuria Musculoskeletal Musculoskeletal: Reports none Integumentary Integumentary: Denies rash Neurologic Neurologic: Denies dizziness, headache(s), memory loss or weakness Physical Exam Const alert and no apparent distress General Appearance: cooperative and comfortable Exam Limitations: no limitations HEENT normocephalic Eyes General Eye: normal appearance of both eyes Neck full ROM General: normal visual inspection Chest Chest: symmetrical chest wall rise Resp normal respiratory effort and normal air movement Effort and Inspection: symmetric chest movement Auscultation: clear to auscultation bilaterally Cardio regular rate and regular rhythm GI normal to inspection, nondistended, normoactive bowel sounds Back/Spine normal ROM Extremity full ROM and no calf tenderness General Extremity: normal exam except as noted Skin no rashes or lesions noted Neuro CN's II-XII intact bilaterally Psych mental status grossly normal Assessment & Plan (1) Lactating mother: (2) Vaginal delivery: (3) Positive GBS test: (4) History of depression: (5) Obesity: PLAN: Plan PPD 1 - Intact Routine care Pain control support Anticipate discharge home tomorrow 10/16/23 0824 <Electronically signed by Ari Blum CNM> Cosigner Signature (if applicable): CC: ~ Signed [facility] Work Phone: 1(708) 875-393211-14-2023 Procedure [facility] 10-15-2023 History and physical note Author Nighat Maloney [facility] October 15, 2023 5:29pm Note Date/Time October 15, 2023 2:37pm [facility] Medical Records Department [address] [place] [address] H&P Exam - [employer]NT [employer] 10/15/23 1437 MR#: [id number] Acct: [id number] Name: YOKASTA PRETTY Rep #:[id number] : 1995 27 From: Nighat TOLBERT PCP: Dr. Magnolia Chen MD Status:ADM IN Location: [place] [address] HPI - General General Date of Admission: 10/15/23 Chief Complaint: Rupture of Membranes HPI Narrative YOKASTA PRETTY, is a 27 F who presents at 37w6d with CLAUDIO: 10/30/23. Presents with SROM and positive ROM+. No vaginal bleeding. Maternal Data Information CLAUDIO Calculator Estimated Delivery Date Method Current WG Current Estimate 10/30/23 Manual 37w 6d PFSH PFSH Medical History (Updated 10/15/23 @ 17:20 by Nighat Maloney CNM) Anxiety Asthma Bipolar disorder Chest pain Cholecystitis with cholelithiasis Depression Elective induction of labor planned Fatty liver Former smoker Gastric reflux Heartburn Injury of head and neck Liver disease Marginal placenta previa Migraines MRSA infection PCOS (polycystic ovarian syndrome) depression Spontaneous vaginal delivery Thyroid disorder Trauma Wears glasses Home Medications ufdiuqld-rfk-Ka-FA 1 mg tablet 1 tab PO DAILY 05/04/23 [History Last Taken 10/15/23] nitrofurantoin monohydrate/macrocrystals 100 mg capsule (Macrobid) 100 mg PO DAILY frequent UTI's 09/22/23 [History Last Taken 10/15/23] albuterol 90 mcg/actuation aerosol inhaler mcg inhalation PRN asthma 10/10/23 [History Last Taken Unknown] Allergy/AdvReac Type Severity Reaction Status Date / Time aripiprazole Allergy Hives Verified 10/15/23 11:43 Family History Father Anxiety Depression Mental disorder Suicide attempt Grandfather Cancer lung Grandmother Myocardial infarction CVA (cerebral vascular accident) Surgical History History of cholecystectomy History of surgery Hx of tonsillectomy Social History household members: family housing: house current occupational status: employed current occupation: [employer] sexually active: Yes Smoking Status: Former smoker quit date: 12/02/19 pack-years: 4 Electronic Cigarette Use: not used alcohol intake: current alcohol intake frequency: holidays/special occasions only substance use type: does not use what type of physical activity do you participate in: walking frequency: 5-6 times per week seatbelt use: always do you feel safe at home: Yes History 1 Elective abortions Hx Para 1 Spontaneous abortions Hx # Term Pregnancies Ectopic pregnancies Hx # Pregnancies Multiple births # of living children 1 NST FHR Rate Baby A Baseline: 130 Variability:: Moderate Accelerations:: 15 x 15 Decelerations:: None FHR Category:: Category I Uterine Activity:: Every 1.5-3 minutes, lasting 50-70 sec moderate strength Vital Signs Vital Signs Vital Signs: 10/15/23 10:51 10/15/23 10:51 10/15/23 13:05 Temperature Temperature Source Pulse Rate 107 H Blood Pressure 120/65 133/70 H BP Systolic 120 133 BP Diastolic 65 70 Pulse Ox 10/15/23 13:05 10/15/23 13:06 10/15/23 13:06 Temperature Temperature Source Temporal Pulse Rate 87 Blood Pressure BP Systolic BP Diastolic Pulse Ox 98 10/15/23 13:06 10/15/23 14:08 10/15/23 14:09 Temperature 97.5 F L Temperature Source Temporal Pulse Rate Blood Pressure 127/68 H BP Systolic 127 BP Diastolic 68 Pulse Ox 10/15/23 14:09 10/15/23 14:08 10/15/23 14:08 Temperature 97.1 F L Temperature Source Pulse Rate 88 Blood Pressure BP Systolic BP Diastolic Pulse Ox 98 Weight Weight: 264 lb 12.403 oz Body Mass Index (BMI) 40.2 Physical Exam Const alert and oriented x3 General Appearance: cooperative Orientation / Consciousness: awake, oriented to person, oriented to place and oriented to time Exam Limitations: no limitations HEENT normocephalic Head and Scalp: normal to inspection, normocephalic and atraumatic Face and Sinus: normal facial exam Eyes General Eye: normal appearance of both eyes Neck full ROM Chest Chest: symmetrical chest wall rise Resp normal respiratory effort and normal air movement Auscultation: clear to auscultation bilaterally Cardio regular rate, regular rhythm, S1 normal heart sound, S2 normal heart sound, no murmurs, no rub, no gallops and no clicks GI normal to inspection, nondistended, normoactive bowel sounds and non-tender appearance of the vagina normal Bladder / Kidney Exam: no CVA tenderness Back/Spine normal ROM Extremity normal to inspection and full ROM Skin no rashes or lesions noted Neuro oriented x3, CN's II-XII intact bilaterally and moves all extremities Sensorium / Orientation: awake, alert and oriented to person Labs Labs Labs: Blood Type O POSITIVE Antibody Screen NEGATIVE Hct 35.5 % (37-47) L Hgb 11.4 g/dL (12.0-15.0) L Obstetrics Ultrasound Syphilis Total Ab Non-reactive VZV IgG Antibody 692 index (Immune >165) Rubella IgG Antibody Reactive (Nonreactive) Hep Bs Antigen Non-Reactive (Nonreactive) Hepatitis C Antibody Non-Reactive (Nonreactive) Chlamydia DNA (KOLE) Negative (Negative) N.gonorrhoeae DNA (KOLE) Negative (Negative) HIV 1&2 Antibody Non-Reactive (Nonreactive) Glucose 1 Hr 50 gm 122 mg/dL (70-140) Miscellaneous Test Assessment & Plan (1) 37 weeks gestation of : (2) SROM (spontaneous rupture of membranes): (3) UTI in : (4) Obesity: (5) Short interval between pregnancies affecting in third trimester, antepartum: (6) History of depression: (7) Positive GBS test: PLAN: Plan 1. Admit to labor and delivery 2. Continuous EFM 3. Oral hydration and IV fluids as needed. 4. Admission labs. 5. Position of comfort and positional changes 6. Epidural as desired. 7. Augment with Pitocin. 8. PCN 5grams then 2.5grams every 4 hrs for GBS prophylaxis 9 . Anticipate . 11. Notified Dr. Sanchez of patient status. 10/15/23 1729 <Electronically signed by Nighat Maloney CNM> Cosigner Signature (if applicable): CC: SHANITA Maloney; Dr. Magnolia Chen MD~ Signed [facility] Work Phone: 1(171) 362-678811-14-2023 Miscellaneous Notes* Telephone Encounter - Kelly Lundberg RN - 10/15/2023 10:04 AM EST 37w6d Called stating around 0915 today she had large gush of clear fluid. Since then she has fluid with movement. Has felt movement since rupture. Going straight to L&D. L&D notified. Kelly Lundberg RN documented in this encounterMartin [facility]11-[facility]23 History of Present illness Narrative* Radha Rowell MD - 10/14/2023 9:08 AM EST NST SUMMARY PROVIDER ASSESSMENT AND INTERPRETATION Yokasta Pretty is a 27 year old female, , who is at 37w5d with an CLAUDIO of 10/30/2023, by LastMenstrual Period dating method. Indications for NST: Obesity Baseline: 135 Variability: Moderate Accelerations: Present 15 X 15 Decelerations: None Contractions: TOCO: Irregular Interpretation: Category I and Reactive SIGNATURE: Radha Rowell MD documented in this encounterMartin Memorial Hospital11-13-2023 Miscellaneous Notes* Quick Notes - Radha Rowell MD - 10/14/2023 9:07 AM EST RR- VB No. LOF No. CTXS No. Movement: present. Other c/o: No. Medication list reviewed. Physical Exam See Flow Sheet Abd: soft, nontender, flat Ext: edema: 1+ A/P 37w5d Estimated Date of Delivery: 10/30/23 NST todsay for maternal obesity, supervision high risk multigarvida Kick counts plan induction at 39 weeks, cont. to monitor Bacturia/UTI during , cont. macrobid prophylaxis Radha Rowell M.D. documented in this encounterMartin Memorial Hospital11-13-2023 Instructions* Patient Instructions* aMvis Garcia Ma - 10/14/2023 9:04 AM EST SEQUENTIAL SCREENINGS [facility] offers sequential screenings for women who are interested in screenings for chromosomal abnormalities and certain defects during a . The sequential screen combinesultrasound and blood tests to determine the risk of chromosomal abnormalities, including Down's Syndrome (Trisomy 21) and Trisomy 18, as well as open neural tube defects including spina bifida. Ultrasound examination is performed between 11 weeks and 13 weeks gestational age. Blood tests are drawn after the ultrasound and again later in the between 15 and 21 weeks gestational age. Please let your physician know if you are interested in this testing. It will require an appointment withour education technician. This is not an ultrasound performed by a physician in our office during a routine visit. SIGNS AND SYMPTOMS OF LABOR 1. Contractions every 10 minutes or more often 2. Clear, pink, or brownish fluid (water) leaking from vagina 3. Feeling that baby is pushing down, pressure 4. Low, dull backache 5. Cramps that feel like a period 6. Cramps with or without diarrhea If you notice any of the above symptoms, contact our office at [phone] and ask to speak with anurse. After hours, you can call doctors registry at [phone] OR call [facility] at [phone] ask to have the doctor information systems security analyst paged. If you consider this an emergency, dial [phone] or go to your nearest emergency department. NEED HELP? Are you dealing with a violent or abusive relationship? Are you a victim of rape or sexual assult? Call [facility] ([place]) 24 hour Crisis Hotline: 587.808.3083 or 133-893-5935. MANUAL Your Guide to a Healthy manual is now on-line. Visit [email or web address] to download your free copy documented in this encounterMartin Memorial Hospital11-06-2023 History of Present illness Narrative* Radha Rowell MD - 10/07/2023 10:26 AM EST NST SUMMARY PROVIDER ASSESSMENT AND INTERPRETATION Yokasta Pretty is a 27 year old female, , who is at 36w5d with an CLAUDIO of 10/30/2023, by LastMenstrual Period dating method. Indications for NST: Obesity Baseline: 140 Variability: Moderate Accelerations: Present 15 X 15 Decelerations: None Contractions: TOCO: no regular ctxs Interpretation: Category I and Reactive SIGNATURE: Radha Rowell MD documented in this encounterMartin Memorial Hospital11-06-2023 Miscellaneous Notes* Quick Notes - Radha Rowell MD - 10/07/2023 10:24 AM EST RR- VB No. LOF No. CTXS yes, irreg . Movement: present. Other c/o: No. Medication list reviewed. Physical Exam See Flow Sheet Abd: soft, nontender, gravid Ext: edema: Trace A/P 36w5d Estimated Date of Delivery: 10/30/23 maternal obesity, US today, BPP was 6/8, NSt reactive so 07/11. Kick counts f/u in 1 week or prn On macrobid for UTI prevention r/b/a to induction at 39 weeks reviewed and she desires to proceed.. Radha Rowell M.D. documented in this encounterMartin Memorial Hospital11-06-2023 Instructions* Patient Instructions* Mavis Garcia Ma - 10/07/2023 9:46 AM EST SEQUENTIAL SCREENINGS [facility] offers sequential screenings for women who are interested in screenings for chromosomal abnormalities and certain defects during a . The sequential screen combinesultrasound and blood tests to determine the risk of chromosomal abnormalities, including Down's Syndrome (Trisomy 21) and Trisomy 18, as well as open neural tube defects including spina bifida. Ultrasound examination is performed between 11 weeks and 13 weeks gestational age. Blood tests are drawn after the ultrasound and again later in the between 15 and 21 weeks gestational age. Please let your physician know if you are interested in this testing. It will require an appointment withour education technician. This is not an ultrasound performed by a physician in our office during a routine visit. SIGNS AND SYMPTOMS OF LABOR 1. Contractions every 10 minutes or more often 2. Clear, pink, or brownish fluid (water) leaking from vagina 3. Feeling that baby is pushing down, pressure 4. Low, dull backache 5. Cramps that feel like a period 6. Cramps with or without diarrhea If you notice any of the above symptoms, contact our office at [phone] and ask to speak with anurse. After hours, you can call doctors registry at [phone] OR call [facility] at [phone] ask to have the doctor information systems security analyst paged. If you consider this an emergency, dial 91-0 or go to your nearest emergency department. NEED HELP? Are you dealing with a violent or abusive relationship? Are you a victim of rape or sexual assult? Call [facility] ([facility] 24 hour Crisis Hotline: 775.541.2757 or 008-832-8060. MANUAL Your Guide to a Healthy manual is now on-line. Visit [email or web address] to download your free copy documented in this encounterMartin Memorial Hospital11-03-2023 Miscellaneous Notes* Quick Notes - Nighat Maloney APRN.CNM - 10/04/2023 4:56 PM EDT JOLIE-S: Yokasta Pretty is a 27 year old female who presents at 36w2d with CLAUDIO:10/30/2023, by Last Menstrual Period for a problem visit. Good FM. Denies headache, visual changes, chest pain, shortness of breath, vaginal bleeding, leakage of fluid, or dysuria. Feeling well, no complaints. O: See flow sheet Gen: No apparent distress Abd: Gravid, nontender VE: vagina pink, rugae, small amount of white vaginal discharge, thick. No pooling Amniotic Fluid Test 10/04/2023 4:57 PM Fern: neg ; Nitrazine: neg (pH less than 7) Fern Reference Range: Negative for amniotic fluid Nitrazine Reference Range: Normal vaginal pH is acidic (below 7.0) with pH above 7.0 (basic) indicating the presence of amniotic fluid. Lab Address: Ob/gynecology [address] [place] [address] Dept: [phone] Provider: Nighat Maloney APRN.CNM ASSESSMENT/PLAN: 1. Supervision of high risk in third trimester 2. 36 weeks gestation of P: 1) PTL precautions reviewed and when to call 2) RTO as scheduled. Nighat Maloney APRN.CNM documented in this encounterMartin Memorial Hospital11-03-2023 Instructions* Patient Instructions* Quinten Issa Cma - 10/04/2023 3:27 PM EDT SEQUENTIAL SCREENINGS [facility] offers sequential screenings for women who are interested in screenings for chromosomal abnormalities and certain defects during a . The sequential screen combinesultrasound and blood tests to determine the risk of chromosomal abnormalities, including Down's Syndrome (Trisomy 21) and Trisomy 18, as well as open neural tube defects including spina bifida. Ultrasound examination is performed between 11 weeks and 13 weeks gestational age. Blood tests are drawn after the ultrasound and again later in the between 15 and 21 weeks gestational age. Please let your physician know if you are interested in this testing. It will require an appointment withour education technician. This is not an ultrasound performed by a physician in our office during a routine visit. SIGNS AND SYMPTOMS OF LABOR 1. Contractions every 10 minutes or more often 2. Clear, pink, or brownish fluid (water) leaking from vagina 3. Feeling that baby is pushing down, pressure 4. Low, dull backache 5. Cramps that feel like a period 6. Cramps with or without diarrhea If you notice any of the above symptoms, contact our office at [phone] and ask to speak with anurse. After hours, you can call doctors registry at [phone] OR call [facility] at [phone] ask to have the doctor information systems security analyst paged. If you consider this an emergency, dial [phone]--1 or go to your nearest emergency department. NEED HELP? Are you dealing with a violent or abusive relationship? Are you a victim of rape or sexual assult? Call [facility] ([place]) 24 hour Crisis Hotline: 940.998.4941 or 968-981-5440. MANUAL Your Guide to a Healthy manual is now on-line. Visit [email or web address] to download your free copy documented in this encounterMartin Memorial Hospital10-31-2023 History of Present illness Narrative* Radha Rowell MD - 10/01/2023 11:16 AM EDT NST SUMMARY PROVIDER ASSESSMENT AND INTERPRETATION Yokasta Pretty is a 27 year old female, , who is at 35w6d with an CLAUDIO of 10/30/2023, by LastMenstrual Period dating method. Indications for NST: Obesity Baseline: 140 Variability: Moderate Accelerations: Present 15 X 15 Decelerations: Variable Contractions: TOCO: None Interpretation: Category I aftyer one variable and Reactive SIGNATURE: Radha Rowell MD documented in this encounterMartin Memorial Hospital10-31-2023 Miscellaneous Notes* Quick Notes - Radha Rowell MD - 10/01/2023 11:15 AM EDT RR- VB No. LOF No. CTXS irreg . Movement: present. Other c/o: No. Medication list reviewed. Physical Exam See Flow Sheet Abd: soft, nontender, gravid Ext: edema: Trace , 2+ DTRs, no clonus A/P 35w6d Estimated Date of Delivery: 10/30/23 Labs: GBS done kick counts growth scan next week NST reactive. Rahda Rowell M.D. documented in this encounterMartin Memorial Hospital10-31-2023 Instructions* Patient Instructions* Mavis Garica Ma - 10/01/2023 10:33 AM EDT SEQUENTIAL SCREENINGS [facility] offers sequential screenings for women who are interested in screenings for chromosomal abnormalities and certain defects during a . The sequential screen combinesultrasound and blood tests to determine the risk of chromosomal abnormalities, including Down's Syndrome (Trisomy 21) and Trisomy 18, as well as open neural tube defects including spina bifida. Ultrasound examination is performed between 11 weeks and 13 weeks gestational age. Blood tests are drawn after the ultrasound and again later in the between 15 and 21 weeks gestational age. Please let your physician know if you are interested in this testing. It will require an appointment withour education technician. This is not an ultrasound performed by a physician in our office during a routine visit. SIGNS AND SYMPTOMS OF LABOR 1. Contractions every 10 minutes or more often 2. Clear, pink, or brownish fluid (water) leaking from vagina 3. Feeling that baby is pushing down, pressure 4. Low, dull backache 5. Cramps that feel like a period 6. Cramps with or without diarrhea If you notice any of the above symptoms, contact our office at [phone] and ask to speak with anurse. After hours, you can call doctors registry at [phone] OR call [facility] at [phone] ask to have the doctor information systems security analyst paged. If you consider this an emergency, dial [phone]--9 or go to your nearest emergency department. NEED HELP? Are you dealing with a violent or abusive relationship? Are you a victim of rape or sexual assult? Call [facility] ([place]) 24 hour Crisis Hotline: 416.349.6183 or 056-153-2835. MANUAL Your Guide to a Healthy manual is now on-line. Visit [email or web address] to download your free copy documented in this encounterMartin Memorial Hospital10-27-2023 Miscellaneous Notes* Telephone Encounter - Hannah Haas RN - 09/27/2023 9:49 AM EDT Signed and faxed. Hannah Haas RN * Telephone Encounter - Hannah Haas RN - 09/27/2023 8:05 AM EDT Written order received from [facility] and to office to sign. Hannah Haas RN documented in this encounterMartin Memorial Hospital10-23-2023 History of Present illness Narrative* Radha Rowell MD - 09/23/2023 9:51 AM EDT NST SUMMARY PROVIDER ASSESSMENT AND INTERPRETATION Yokasta Pretty is a 27 year old female, , who is at 34w5d with an CLAUDIO of 10/30/2023, by LastMenstrual Period dating method. Indications for NST: Obesity Baseline: 140 Variability: Moderate Accelerations: Present 15 X 15 Decelerations: None Contractions: TOCO: None Interpretation: Category I and Reactive SIGNATURE: Radha Rowell MD documented in this encounterMartin [facility] Hospital10-23-2023 Miscellaneous Notes* Quick Notes - Radha Rowell MD - 09/23/2023 9:48 AM EDT RR- VB No. LOF No. CTXS No. Movement: present. Other c/o: back pain better, now sore lower abdomen. Medication list reviewed. Physical Exam See Flow Sheet Abd: soft, nontender, gravid Ext: edema: Trace A/P 34w5d Estimated Date of Delivery: 10/30/23 kick counts NST for maternal obesity f/u in 1 week, GBS next visit. finished macrobid x 10 days, will leave on daily prophylaxis for remainder of Radha Rowell M.D. documented in this encounterMartin Memorial Hospital10-23-2023 Instructions* Patient Instructions* Mavis Garcia Ma - 09/23/2023 9:31 AM EDT SEQUENTIAL SCREENINGS [facility] offers sequential screenings for women who are interested in screenings for chromosomal abnormalities and certain defects during a . The sequential screen combinesultrasound and blood tests to determine the risk of chromosomal abnormalities, including Down's Syndrome (Trisomy 21) and Trisomy 18, as well as open neural tube defects including spina bifida. Ultrasound examination is performed between 11 weeks and 13 weeks gestational age. Blood tests are drawn after the ultrasound and again later in the between 15 and 21 weeks gestational age. Please let your physician know if you are interested in this testing. It will require an appointment withour education technician. This is not an ultrasound performed by a physician in our office during a routine visit. SIGNS AND SYMPTOMS OF LABOR 1. Contractions every 10 minutes or more often 2. Clear, pink, or brownish fluid (water) leaking from vagina 3. Feeling that baby is pushing down, pressure 4. Low, dull backache 5. Cramps that feel like a period 6. Cramps with or without diarrhea If you notice any of the above symptoms, contact our office at [phone] and ask to speak with anurse. After hours, you can call doctors registry at [phone] OR call [facility] at [phone] ask to have the doctor information systems security analyst paged. If you consider this an emergency, dial or go to your nearest emergency department. NEED HELP? Are you dealing with a violent or abusive relationship? Are you a victim of rape or sexual assult? Call [facility] ([place]) 24 hour Crisis Hotline: 425.734.4399 or 425-882-2234. MANUAL Your Guide to a Healthy manual is now on-line. Visit [email or web address] to download your free copy documented in this encounterMartin Memorial Hospital10-13-2023 Miscellaneous Notes* Telephone Encounter - Hannah Hasa RN - 09/13/2023 10:27 AM EDT Please review urine culture result. HANNAH HAAS RN documented in this encounterMartin Memorial Hospital10-11-2023 Miscellaneous Notes* Result Encounter Note - Radha Rowell MD - 09/11/2023 3:37 PM EDT Anatomy ultrasound reviewed. No abnormalities identified. Follow up as clinically indicated. Pleaseplace copy in ob chart. Radha Rowell MD documented in this encounterMartin Memorial Hospital10-11-2023 Miscellaneous Notes* Quick Notes - Radha Rowell MD - 09/11/2023 10:51 AM EDT RR- VB No. LOF No. CTXS some last night then resolved . Movement: present. Other c/o: no MARQUEZ or visual changes. Some back pain worse w/ walking Medication list reviewed. Physical Exam See Flow Sheet Abd: soft, nontender, gravid Ext: edema: Trace A/P 33w0d Estimated Date of Delivery: 10/30/23 Maternal obesity- BPP 07/09 today, growth 53 % today back pain, hip pain, reviewed symptomatic measures, if not improved consider physical therapy NSTs weekly starting next week. Radha Rowell M.D. documented in this encounterMartin Memorial Hospital10-11-2023 Instructions* Patient Instructions* Radha Mark Mavis - 09/11/2023 9:50 AM EDT SEQUENTIAL SCREENINGS [facility] offers sequential screenings for women who are interested in screenings for chromosomal abnormalities and certain defects during a . The sequential screen combinesultrasound and blood tests to determine the risk of chromosomal abnormalities, including Down's Syndrome (Trisomy 21) and Trisomy 18, as well as open neural tube defects including spina bifida. Ultrasound examination is performed between 11 weeks and 13 weeks gestational age. Blood tests are drawn after the ultrasound and again later in the between 15 and 21 weeks gestational age. Please let your physician know if you are interested in this testing. It will require an appointment withour education technician. This is not an ultrasound performed by a physician in our office during a routine visit. SIGNS AND SYMPTOMS OF LABOR 1. Contractions every 10 minutes or more often 2. Clear, pink, or brownish fluid (water) leaking from vagina 3. Feeling that baby is pushing down, pressure 4. Low, dull backache 5. Cramps that feel like a period 6. Cramps with or without diarrhea If you notice any of the above symptoms, contact our office at [phone] and ask to speak with anurse. After hours, you can call doctors registry at [phone] OR call [facility] at [phone] ask to have the doctor information systems security analyst paged. If you consider this an emergency, dial 6--2 or go to your nearest emergency department. NEED HELP? Are you dealing with a violent or abusive relationship? Are you a victim of rape or sexual assult? Call [facility] ([place]) 24 hour Crisis Hotline: 161.187.9775 or 330-697-8754. MANUAL Your Guide to a Healthy manual is now on-line. Visit [email or web address] to download your free copy documented in this encounterMartin Memorial Hospital09-19-2023 Miscellaneous Notes* Telephone Encounter - Klely Lundberg RN - 08/20/2023 11:30 AM EDT Patient notified. Kelly Lundberg RN * Telephone Encounter - Funmilayo Panchal RN - 08/20/2023 10:42 AM EDT Left message for patient to call office. Funmilayo Panchal RN Let her know urine culture showed MRSA. At this point in risks of bactrim are very small and we need to treat this adequately. She needs to finish all of the antiobiotics as scheduled and we will repeat a urine culture in a month. [facility] Thanks. Radha Rowell MD documented in this encounterMartin Memorial Hospital09-08-2023 Miscellaneous Notes* Telephone Encounter - Katelynn Luciano RN - 08/09/2023 12:37 PM EDT 3rd risk assessment form submitted 08/09/23 Katelynn Luciano RN documented in this encounterMartin Memorial Hospital09-01-2023 Miscellaneous Notes* Quick Notes - Radha Rowell MD - 08/02/2023 10:59 AM EDT RR- VB No. LOF No. CTXS No. Movement: present. Other c/o: No. Medication list reviewed. Physical Exam See Flow Sheet Abd: soft, nontender, gravid Ext: edema: no A/P 27w2d Estimated Date of Delivery: 10/30/23 28 week labs today Given plan worksheet declines birthing classes plans tdap today d/w her contraception, declines lARC at delivery but considering after PP exam. Radha Rowell M.D. documented in this encounterMartin Memorial Hospital09-01-2023 History of Present illness Narrative* Mavis Garcia Ma - 08/02/2023 10:40 AM EDT Patient identified by name and date of . Yokasta Pretty presents today for a vaccination of Tdap. Patient denies an allergy to latex: yes Patient denies a severe (life-threatening) allergy to a previous dose of Tdap, DTP, DTaP, DT or Td vaccine. Yes Patient denies history of epilepsy or neurological problems: Yes Patient is afebrile and denies being moderately or severely ill: Yes Patient denies history of Guillain-Arabi Syndrome (a severe paralytic illness): Yes Tdap Adacel injection was given without incident. See immunizations for details of immunizations administered today. VIS sheet provided: Yes Provider Dr Rowell was present in office at time of injection. Mavis Garcia Ma documented in this encounterMartin Memorial Hospital09-01-2023 Instructions* Patient Instructions* Mavis Garcia Ma - 08/02/2023 10:28 AM EDT SEQUENTIAL SCREENINGS [facility] offers sequential screenings for women who are interested in screenings for chromosomal abnormalities and certain defects during a . The sequential screen combinesultrasound and blood tests to determine the risk of chromosomal abnormalities, including Down's Syndrome (Trisomy 21) and Trisomy 18, as well as open neural tube defects including spina bifida. Ultrasound examination is performed between 11 weeks and 13 weeks gestational age. Blood tests are drawn after the ultrasound and again later in the between 15 and 21 weeks gestational age. Please let your physician know if you are interested in this testing. It will require an appointment withour education technician. This is not an ultrasound performed by a physician in our office during a routine visit. SIGNS AND SYMPTOMS OF LABOR 1. Contractions every 10 minutes or more often 2. Clear, pink, or brownish fluid (water) leaking from vagina 3. Feeling that baby is pushing down, pressure 4. Low, dull backache 5. Cramps that feel like a period 6. Cramps with or without diarrhea If you notice any of the above symptoms, contact our office at [phone] and ask to speak with anurse. After hours, you can call doctors registry at [phone] OR call [facility] at [phone] ask to have the doctor information systems security analyst paged. If you consider this an emergency, dial 9-1-2 or go to your nearest emergency department. NEED HELP? Are you dealing with a violent or abusive relationship? Are you a victim of rape or sexual assult? Call [facility] ([place]) 24 hour Crisis Hotline: 230.785.6938 or 059-766-1548. MANUAL Your Guide to a Healthy manual is now on-line. Visit [email or web address] to download your free copy documented in this encounterMartin Memorial Hospital08-22-2023 Miscellaneous Notes* Quick Notes - Radha Rowell MD - 07/23/2023 10:43 AM EDT RR- VB No. LOF No. CTXS No. Movement: present. Other c/o: still generalized prurutis. Denies MARQUEZ or visual changes. No rash. vistaril helps so she can sleep Medication list reviewed. Physical Exam See Flow Sheet Abd: soft, nontender, gravid Ext: edema: Trace A/P 25w6d Estimated Date of Delivery: 10/30/23 Labs: 28 week labs next visit check labs again for pruritis, see orders, cont. vistaril obesity- plan growth scan 32 weeks. Radha Rowell M.D. documented in this encounterMartin Memorial Hospital08-22-2023 Instructions* Patient Instructions* Mavis Garcia Ma - 07/23/2023 10:23 AM EDT SEQUENTIAL SCREENINGS [facility] offers sequential screenings for women who are interested in screenings for chromosomal abnormalities and certain defects during a . The sequential screen combinesultrasound and blood tests to determine the risk of chromosomal abnormalities, including Down's Syndrome (Trisomy 21) and Trisomy 18, as well as open neural tube defects including spina bifida. Ultrasound examination is performed between 11 weeks and 13 weeks gestational age. Blood tests are drawn after the ultrasound and again later in the between 15 and 21 weeks gestational age. Please let your physician know if you are interested in this testing. It will require an appointment withour education technician. This is not an ultrasound performed by a physician in our office during a routine visit. SIGNS AND SYMPTOMS OF LABOR 1. Contractions every 10 minutes or more often 2. Clear, pink, or brownish fluid (water) leaking from vagina 3. Feeling that baby is pushing down, pressure 4. Low, dull backache 5. Cramps that feel like a period 6. Cramps with or without diarrhea If you notice any of the above symptoms, contact our office at [phone] and ask to speak with anurse. After hours, you can call doctors registry at [phone] OR call [facility] at [phone] ask to have the doctor information systems security analyst paged. If you consider this an emergency, dial 8-7-2 or go to your nearest emergency department. NEED HELP? Are you dealing with a violent or abusive relationship? Are you a victim of rape or sexual assult? Call [facility] ([place]) 24 hour Crisis Hotline: 419.410.1923 or 918-167-2792. MANUAL Your Guide to a Healthy manual is now on-line. Visit [email or web address] to download your free copy documented in this encounterMartin Memorial Hospital08-18-2023 Miscellaneous Notes* Telephone Encounter - Radha Rowell MD - 07/19/2023 8:32 AM EDT Thank you. Radha Rowell MD * Telephone Encounter - Funmilayo Panchal RN - 07/18/2023 10:00 AM EDT Patient returned call. She is still having itching. It's not worsening, but about the same. Scheduled with RR on 07/23. Funmilayo Panchal RN * Telephone Encounter - Jaida Dubois LPN - 07/18/2023 9:39 AM EDT Message and mychart message sent to pt. Will await further response from pt. Jaida Dubois LPN * Telephone Encounter - Funmilayo Panchal RN - 07/17/2023 4:58 PM EDT 25w0d Left message on home number to call the office or check Mychart message. Mobile number not working. Funmilayo Panchal RN * Telephone Encounter - Funmilayo Panchal RN - 07/17/2023 4:57 PM EDT ----- Message from Radha Rowell MD sent at 07/17/2023 4:43 PM EDT ----- see mychart message I think our office is having difficulty contacting you. Please contact us at [phone] and ask for a nurse. If you are still having itching I want to see you again before your next appointment. Radha Rowell MD documented in this encounterMartin Memorial Hospital08-16-2023 Miscellaneous Notes* Telephone Encounter - Elizabeth Ghosh LPN - 07/17/2023 4:03 PM EDT Patient notified. * Telephone Encounter - Funmilayo Panchal RN - 07/16/2023 9:38 AM EDT 24w6d Attempted to contact patient again. Invalid phone number. Patient did not yet read [employer] message sent. Positive for bacterial vaginosis. Rx for Flagyl 500 mg PO BID x 7 days sent. No intercourse during treatment. Take all medications. Ari Blum APRN.CNM documented in this encounterMartin Memorial Hospital08-10-2023 Miscellaneous Notes* Telephone Encounter - Kelly Lundberg RN - 07/11/2023 4:08 PM EDT Left message for patient to call office. CP added on one more urine lab for her to complete. Leave not open for results tomorrow- see note below. Kelly Lundberg RN * Telephone Encounter - Ari Blum APRN.CNM - 07/11/2023 1:54 PM EDT Patient to return and leave urine for protein / creat. Ratio. Ari Blum APRN.CNM * Telephone Encounter - Funmilayo Panchal RN - 07/11/2023 1:03 PM EDT Patient notified. Please keep this phone note open and have provider information systems security analyst tomorrow (07/12/23) follow up on any returned labs from today. Funmilayo Panchal RN * Telephone Encounter - Kelly Lundberg RN - 07/11/2023 12:58 PM EDT Left message for patient to call office. Kelly Lundberg RN * Telephone Encounter - Ari Blum APRN.CNM - 07/11/2023 12:45 PM EDT Please notify patient that due to urine dip I sent in Rx for Macrobid 100 mg PO BID x 7 days. I sent urine for a culture as well. Please keep this phone note open and have provider information systems security analyst tomorrow follow up on any returned labs from today. Ari Blum APRN.CNM documented in this encounterMartin Memorial Hospital08-10-2023 Miscellaneous Notes* Addendum Note - Ari Blum APRN.CNM - 07/11/2023 1:45 PM EDTAddended by: ARI BLUM on: 07/11/2023 01:45 PM Modules accepted: Orders * Quick Notes - Ari Blum APRN.CNM - 07/11/2023 12:15 PM EDT S: Yokasta Pretty is a 27 year old female who presents at 24.1 weeks gestation as an add on visit for abdominal pain and itching. She reports itching all over body and on feet and hands mostly. This started over a week ago and she cannot get any relief from creams or benadryl. No rash noted. Feeling sharp, constant pains in abdomen since last week as well. Reports pains do no come and go like contractions but are constant. Positive movement. With further questioning, patient does have some vaginal burning with voiding and increased discharge as well. Denies any headache, vision changes, RUQ pain. O: See flow sheet Gen: No apparent distress Abd: Gravid, non tender with moderate palpation SENIOR ELECTRONICS ENGINEER: SSE completed. Moderate amount of thick white/yellow discharge adhered to cervix and vagina ASSESSMENT/PLAN: 1. 24 weeks gestation of - ICD9: V22.2, ICD10: Z3A.24 (primary diagnosis) 2. Supervision of other high risk pregnancies, first trimester - ICD9: V23.89, ICD10: O09.891 3. Vaginal burning - ICD9: 625.8, ICD10: N94.9 4. Vaginal discharge during in second trimester - ICD9: 646.83, 623.5, ICD10: O26.892, N89.8 5. Pruritis - R/O cholestasis? - CMP, LFT's, bile salts - Vistaril 25 mg PO TID as needed - Will await starting of ursodiol until labs returned - UA dip- Positive for blood, protein, nitrates, and leukocytes - Will send culture - Start treatment with Macrobid 100 mg PO BID x 7 days - BACT/JOHN VAG GRAM STAIN Will notify patient of results and any changes to treatment plan P: 1) PTL precautions reviewed and when to call 2) Keep scheduled appointment Ari Blum APRN.CNM documented in this encounterMartin Memorial Hospital08-10-2023 Instructions* Patient Instructions* Jesenia Lynn RN - 07/11/2023 11:30 AM EDT SEQUENTIAL SCREENINGS [facility] offers sequential screenings for women who are interested in screenings for chromosomal abnormalities and certain defects during a . The sequential screen combinesultrasound and blood tests to determine the risk of chromosomal abnormalities, including Down's Syndrome (Trisomy 21) and Trisomy 18, as well as open neural tube defects including spina bifida. Ultrasound examination is performed between 11 weeks and 13 weeks gestational age. Blood tests are drawn after the ultrasound and again later in the between 15 and 21 weeks gestational age. Please let your physician know if you are interested in this testing. It will require an appointment withour education technician. This is not an ultrasound performed by a physician in our office during a routine visit. SIGNS AND SYMPTOMS OF LABOR 1. Contractions every 10 minutes or more often 2. Clear, pink, or brownish fluid (water) leaking from vagina 3. Feeling that baby is pushing down, pressure 4. Low, dull backache 5. Cramps that feel like a period 6. Cramps with or without diarrhea If you notice any of the above symptoms, contact our office at [phone] and ask to speak with anurse. After hours, you can call doctors registry at [phone] OR call [facility] at [phone] ask to have the doctor information systems security analyst paged. If you consider this an emergency, dial 9--1 or go to your nearest emergency department. NEED HELP? Are you dealing with a violent or abusive relationship? Are you a victim of rape or sexual assult? Call [facility] ([place]) 24 hour Crisis Hotline: 712.787.5326 or 639-260-0504. MANUAL Your Guide to a Healthy manual is now on-line. Visit [email or web address] to download your free copy documented in this encounterMartin Memorial Hospital08-10-2023 Miscellaneous Notes* Telephone Encounter - Funmilayo Panchal RN - 07/11/2023 11:20 AM EDT Patient called in to the office. Coming in to the office now. Funmilayo Panchal RN * Telephone Encounter - Funmilayo Panchal RN - 07/11/2023 10:39 AM EDT Tried calling patient. Has not read [employer] messages yet either. * Telephone Encounter - Radha Rowell MD - 07/11/2023 9:17 AM EDT offer ob appt. CP end of am. Radha Rowell MD * Telephone Encounter - Jaida Dubois LPN - 07/11/2023 7:50 AM EDT Please see pt's mychart message and pended orders below and further advise. Jaida Dubois LPN documented in this encounterMartin Memorial Hospital07-27-2023 Miscellaneous Notes* Quick Notes - Radha Rowell MD - 06/27/2023 10:57 AM EDT RR- VB No. LOF No. CTXS No. Movement: present. Other c/o: some cramps at night in her calves that then linger and cause pain next day. Tried stretching and hydration Medication list reviewed. Physical Exam See Flow Sheet Abd: soft, nontender, gravid Ext: edema: Trace A/P 22w1d Estimated Date of Delivery: 10/30/23 leg cramps- trial magnesium. 28 week labs ordered f/u in 3-5 weeks or prn. Radha Rowell M.D. documented in this encounterMartin Memorial Hospital07-27-2023 Instructions* Patient Instructions* Mavis Garcia Ma - 06/27/2023 10:12 AM EDT SEQUENTIAL SCREENINGS [facility] offers sequential screenings for women who are interested in screenings for chromosomal abnormalities and certain defects during a . The sequential screen combinesultrasound and blood tests to determine the risk of chromosomal abnormalities, including Down's Syndrome (Trisomy 21) and Trisomy 18, as well as open neural tube defects including spina bifida. Ultrasound examination is performed between 11 weeks and 13 weeks gestational age. Blood tests are drawn after the ultrasound and again later in the between 15 and 21 weeks gestational age. Please let your physician know if you are interested in this testing. It will require an appointment withour education technician. This is not an ultrasound performed by a physician in our office during a routine visit. SIGNS AND SYMPTOMS OF LABOR 1. Contractions every 10 minutes or more often 2. Clear, pink, or brownish fluid (water) leaking from vagina 3. Feeling that baby is pushing down, pressure 4. Low, dull backache 5. Cramps that feel like a period 6. Cramps with or without diarrhea If you notice any of the above symptoms, contact our office at [phone] and ask to speak with anurse. After hours, you can call doctors registry at [phone] OR call [facility] at [phone] ask to have the doctor information systems security analyst paged. If you consider this an emergency, dial 9--7 or go to your nearest emergency department. NEED HELP? Are you dealing with a violent or abusive relationship? Are you a victim of rape or sexual assult? Call [facility] ([place]) 24 hour Crisis Hotline: 831.474.3231 or 484-904-9907. MANUAL Your Guide to a Healthy manual is now on-line. Visit [email or web address] to download your free copy documented in this encounterMartin Memorial Hospital07-03-2023 Discharge summary Author Mustapha Serrato [facility] June 03, 2023 2:22pm Note Date/Time June 03, 2023 12:04 pm [facility] Medical Records Department [address] [place] [address] Emergency Department Summary 06/03/23 MR#: [id number] Acct: [id number] Name: YOKASTA PRETTY Rep #:[id number] : 1995 27 From: Mustapha Serrato MD PCP: Dr. Magnolia Chen MD Status:REG ER Location: ED HPI HPI - GI History of Present Illness Chief Complaint: Nausea/Vomiting Detail of Chief Complaint: Suprapubic abdominal pain. 19 weeks . Informant: patient Abdominal Pain/Flank Pain Onset: Today and Yesterday Context: Gradual Onset Timing: Continuous Location: - (Suprapubic pelvic pain.) Current Severity: Mild Maximum Severity: Mild Worsened by: Nothing Relieved by: Nothing Nausea/Vomiting/Emesis GI Symptom: Positive for Nausea and Vomiting Onset: Yesterday Severity: Moderate Diarrhea/Melena/Hematochezia GI Symptom: Negative for Diarrhea, Melena or Hematochezia Associated Symptoms Associated Symptoms: Negative for Dysuria, Frequency or Hematuria Narrative Narrative: 27-year-old female currently almost 19 weeks . Due date is 10/30/2023. She sees Dr. Radha Rowell for [employer]. Patient is G4, P1 Ab2 with those beingmiscarriages. Prior cholecystectomy. States that yesterday started having nausea vomiting and suprapubic abdominal discomfort. Denies any dysuria or hematuria. No fever. Normal bowel movements. No vaginal bleeding. Prior similar symptoms: Yes Recent Illness/Hospitalization: No PFSH PFSH Medical History Anxiety Asthma Bipolar disorder Chest pain Cholecystitis with cholelithiasis Depression Elective induction of labor planned Fatty liver Former smoker Gastric reflux Heartburn Injury of head and neck Marginal placenta previa Migraines PCOS (polycystic ovarian syndrome) Spontaneous vaginal delivery Wears glasses Home Medications lurasidone 20 mg tablet (Latuda) 120 mg PO QHS depression 11/20/21 [History Last Taken 03/04/22 22:00 40 mg] citalopram 20 mg tablet (Celexa) 40 mg PO QHS mood 09/23/22 [History Last Taken Unknown] ondansetron 4 mg disintegrating tablet 4 mg PO Q6H PRN nausea and vomiting #12 tabs 10/21/22 [Rx Last Taken Unknown] [id number] 1 mg tablet 1 tab PO DAILY 05/04/23 [History Last Taken Unknown] ondansetron 4 mg disintegrating tablet 4 mg PO Q6H PRN nausea and vomiting #10 tabs 06/03/23 [Rx Last Taken Unknown] Allergy/AdvReac Type Severity Reaction Status Date / Time aripiprazole Allergy Hives Verified 06/03/23 11:28 Family History Father Anxiety Depression Mental disorder Suicide attempt Grandfather Cancer lung Grandmother Myocardial infarction CVA (cerebral vascular accident) Surgical History History of cholecystectomy History of surgery Hx of tonsillectomy Social History household members: family housing: house current occupational status: employed current occupation: [employer] sexually active: Yes Smoking Status: Former smoker quit date: 12/02/19 pack-years: 4 Electronic Cigarette Use: not used alcohol intake: current alcohol intake frequency: holidays/special occasions only substance use type: does not use what type of physical activity do you participate in: walking frequency: 5-6 times per week seatbelt use: always do you feel safe at home: Yes ROS ROS ED ROS Narrative Cervical abdominal pain. Nausea vomiting. Review of Systems ROS Unobtainable: Denies due to encephalopathy Constitutional Constitutional ED: Denies chills or fever(s) ENT ENT ED: Denies ear pain Cardiovascular Cardiovascular: Denies chest pain Respiratory/Chest Respiratory/Chest: Denies cough Gastrointestinal Gastrointestinal: Reports abdominal pain, nausea and vomiting; Denies constipation, diarrhea or melena Genitourinary Genitourinary ED: Denies dysuria or hematuria Musculoskeletal Musculoskeletal: Denies arthralgias or back pain Integumentary Denies abscess Neurologic Neurologic: Denies headache(s) Psychiatric Psychiatric: Denies anxiety Endocrine Endocrinology: Denies polydipsia Hematologic/Lymphatic Hematologic/Lymphatic: Denies easy bleeding or easy bruising Allergic/Immunologic Allergic/Immunologic ED: Denies mouth swelling or tongue swelling EXAM Physical Exam Narrative Exam Narrative: 27-year-old female no acute distress. Vital signs stable afebrile. HEENT exam unremarkable. Moist mucous membranes. Neck nontender no lymphadenopathy. Lungs clear to auscultation bilaterally. Heart tachycardic rate of 105 no murmur. Abdomen soft nondistended normal bowel sounds no peritoneal signs. Both upper quadrant nontender. No McBurney's point tenderness. Mild suprapubictenderness. No distention. Moving all 4 extremities. Nontender no edema. Back nontender. Neurologically awake alert. No focal motor deficits. Const Vital Signs: 06/03/23 11:27 Temperature 97.9 F Temperature Source Temporal Pulse Rate 109 H Respiratory Rate 16 Blood Pressure 130/77 H Blood Pressure Mean 94 Pulse Ox 97 Oxygen Delivery Method Room Air Positive well nourished and well developed; Negative for cachectic, contracturesor unkempt General Appearance ED: well developed and NAD; Negative for unkempt, cachectic, contractures or pallor Nutritional Appearance: Negative for cachectic HEENT Reports moist mucous membranes normocephalic and atraumatic; Negative for trauma or tenderness Eyes PERRL and EOMs intact bilaterally General Eye ED: Negative for pale conjunctiva or scleral icterus Neck no lymphadenopathy, supple and no JVD General: Negative for tenderness Carotids: Negative for other Lymph Lymphatic: Negative for other Resp normal respiratory effort and clear to auscultation bilaterally Effort and Inspection: Negative for respiratory distress Auscultation: Negative for rales, rhonchi or wheezes Cardio regular rhythm, S1 normal heart sound, S2 normal heart sound and no murmurs; Negative for regular rate Rate: tachycardic; Negative for bradycardia Rhythm: Negative for abnormal rhythm GI non-distended and no masses; Negative for non-tender GI Narrative: Mild suprapubic tenderness only. Inspection: Negative for abdominal distention Auscultation: normoactive bowel sounds Palpation: soft and tender; Negative for guarding, rigid, hepatomegaly, splenomegaly, hernia, mass, pulsatile mass or rebound tenderness present Back/Spine no CVA tenderness General Back: Negative for CVA tenderness Cervical Spine: Negative for cervical spine tenderness Thoracic Spine / Upper Back: Negative for thoracic spinal tenderness Lumbar Spine / Lower Back: Negative for lumbar spinal tenderness Coccyx: Negative for other Extremity full ROM General Extremety ED: Negative for edema or tenderness General Extremity: Negative for edema Neuro CN's II-XII intact bilaterally, moves all extremities and no sensory deficits noted Sensorium / Orientation: alert, oriented to person, oriented to place and oriented to time; Negative for orientation impaired, confused, lethargic or stuporous Motor Exam: strength 5/5 throughout Psych mental status grossly normal and thought process normal Appearance: Negative for unkempt or other Attitude: No agitated Mood & Affect: Negative for depressed, anxious or tearful Skin no wounds General Skin Exam: Negative for jaundice or pallor Lesions: no lesions Rashes: no rashes Trauma: Negative for abrasion Nails: Negative for discolored MDM MDM MDM Narrative Medical decision making narrative: 27-year-old female almost 19 weeks with suprapubic abdominal pain nausea vomiting. Abdominal exam is benign. She will be treated a liter normal saline. Zofran for nausea. Check urinalysis and chemistries. Repeat exam patient is doing well at 1:17 PM. Abdomen benign and nontender. Her nausea is resolved. Were awaiting test results. Repeat exam at 2:16 PM patient doing well. Abdomen benign. We went over her test results. Patient's abdomen is completely nontender. Her nausea is resolved. She will be discharged to home with outpatient follow-up with her [employer]. A prescription will be sent to her pharmacy, [facility], for Francisco. History & Record Review Discussion w/independent historian: Patient Additional record(s) reviewed:: Prior inpatient record, Prior outpatient record,Prior ED visit and Prior labs Lab Data Attestation: I reviewed the patient's lab results. Lab results narrative: Chemistry unremarkable gap of 4 normal BUN and creatinine. Glucose 88. Urinalysis is contaminated. She has 10-25 white cells but 25-50 epithelial cells. No bacteria and no nitrites. This will not be treated as a UTI because I think it is contaminated. Labs: Laboratory Results - last 24 hr 06/03/23 06/03/23 12:55 13:40 Sodium 140 Potassium 3.6 Chloride 111 H Carbon Dioxide 25.0 Anion Gap 4 L BUN 5 L Creatinine 0.61 Estim Creat Clear Calc 142.22 Est GFR (MDRD) Af Amer 154 Est GFR (MDRD) Non-Af 127 BUN/Creatinine Ratio 8.3 L Glucose 88 Calcium 8.6 Urine Color Yellow Urine Clarity Cloudy Urine pH 7.0 Ur Specific [place] 1.010 Urine Protein 15 H Urine Glucose (UA) Normal Urine Ketones Negative Urine Occult Blood 10 H Urine Nitrite Negative Urine Bilirubin Negative Urine Urobilinogen Normal Ur Leukocyte Esterase 500 H Urine RBC 0 SEEN Urine WBC 10-25 SEEN Ur Squamous Epith Cells 25-50 SEEN Urine Bacteria 0 SEEN Urine Mucus 0 SEEN Discharge Plan Triage Chief Complaint: Nausea/Vomiting ED Provider: Mustapha Serrato Dx/Rx/DC Orders Clinical Impression: Second trimester , Nausea & vomiting, Abdominal pain Instructions: ED Vomiting (Adult) Prescriptions: New ondansetron 4 mg tablet,disintegrating 4 mg PO Q6H PRN (Reason: nausea and vomiting) Qty: 10 0RF No Action lurasidone [Latuda] 20 mg Tablet 120 mg PO QHS citalopram [Celexa] 20 mg Tablet 40 mg PO QHS ondansetron 4 mg tablet,disintegrating 4 mg PO Q6H PRN (Reason: nausea and vomiting) Qty: 12 0RF 1 mg Tablet 1 tab PO DAILY Primary Care Provider: Magnolia Chen Referrals: Magnolia Chen MD [Primary Care Provider] - Radha Rowell MD [Med Staff - Active Staff] - Keep Rodri appointment Activity Restrictions/Additional Instructions: Plenty of fluids and rest. Increase your diet slowly as tolerated. Zofran as needed for nausea. Follow-up with your [employer] with your neck scheduled appointment. Follow-up sooner if not doing well. Return if unable to keep fluids down. Disposition Disposition: Home, Self Care What to do if you have Problems For any increased pain, shortness of breath, bleeding, nausea or vomiting, chestpain, or any unexpected problems, contact your Primary Care Provider. Call [facility] ([phone]) or report to the closest Emergency Room. Call 911 if necessary. 06/03/23 1422 <Electronically signed by Mustapha Serrato MD> Cosigner Signature (if applicable): CC: Dr. Magnolia Chen MD ~ Signed [facility] Work Phone: [phone]) 832-246906-03-[address]ato [facility] May 04, 2023 4:40pm Note Date/Time May 04, 2023 3:31p m [facility] Medical Records Department [address] [place] [address] Emergency Department Summary 05/04/23 MR#: [id number] Acct: [id number] Name: YOKASTA PRETTY Rep #:[id number] : 1995 27 From: Mustapha Serrato MD PCP: Dr. Magnolia Chen MD Status:REG ER Location: ED HPI HPI - Fall History of Present Illness Chief Complaint: Fall Detail of Chief Complaint: Tripped and fell down 7 steps. Informant: patient Occured/Mechanism Occurred: Today and Hours Mechanism/Context: Yes trip Usually ambulates: Without assistance Pain/Injury Pain Location: head and abdomen Quality of Pain: Dull and Aching Current Severity: Mild Maximum Severity: Mild Associated Symptoms Associated Symptoms: Negative for Parasthesias, Weakness, Loss of function, Inability to ambulate, Loss of consciousness or Amnesia Narrative Narrative: 27-year-old female history of asthma and currently 14 weeks . Patient'sblood type is O+. Today tripped going down steps fell down about 7 steps. She rolled hit her head her lower back and lower abdomen pelvis. Her due date is 10/30/2023. She has had no complications this . States she is nauseated. Denies any LOC. She is on no blood thinners. Prior similar symptoms: No Recent Illness/Hospitalization: No PFSH PFSH Medical History Anxiety Asthma Bipolar disorder Chest pain Cholecystitis with cholelithiasis Depression Elective induction of labor planned Fatty liver Former smoker Gastric reflux Heartburn Injury of head and neck Marginal placenta previa Migraines PCOS (polycystic ovarian syndrome) Spontaneous vaginal delivery Wears glasses Home Medications lurasidone 20 mg tablet (Latuda) 120 mg PO QHS depression 11/20/21 [History Last Taken 03/04/22 22:00 40 mg] citalopram 20 mg tablet (Celexa) 40 mg PO QHS mood 09/23/22 [History Last Taken Unknown] ondansetron 4 mg disintegrating tablet 4 mg PO Q6H PRN nausea and vomiting #12 tabs 10/21/22 [Rx Last Taken Unknown] [id number] 1 mg tablet 1 tab PO DAILY 05/04/23 [History Last Taken Unknown] Allergy/AdvReac Type Severity Reaction Status Date / Time aripiprazole Allergy Hives Verified 05/04/23 15:02 Family History Father Anxiety Depression Mental disorder Suicide attempt Grandfather Cancer lung Grandmother Myocardial infarction CVA (cerebral vascular accident) Surgical History History of cholecystectomy History of surgery Hx of tonsillectomy Social History household members: family housing: house current occupational status: employed current occupation: [employer] sexually active: Yes Smoking Status: Former smoker quit date: 12/02/19 pack-years: 4 Electronic Cigarette Use: not used alcohol intake: current alcohol intake frequency: holidays/special occasions only substance use type: does not use what type of physical activity do you participate in: walking frequency: 5-6 times per week seatbelt use: always do you feel safe at home: Yes ROS ROS ED ROS Narrative Lower abdominal pelvic pain. Low back pain. Closed head injury. Mild nausea. No recent illness. Review of Systems ROS Unobtainable: Denies due to encephalopathy Constitutional Constitutional ED: Denies chills or fever(s) Eyes Eyes: Denies blurry vision ENT ENT ED: Denies ear pain Cardiovascular Cardiovascular: Denies chest pain Respiratory/Chest Respiratory/Chest: Denies cough or dyspnea Gastrointestinal Gastrointestinal: Reports abdominal pain and nausea; Denies constipation, diarrhea, melena or vomiting Genitourinary Genitourinary ED: Denies dysuria or hematuria Musculoskeletal Musculoskeletal: Denies arthralgias Integumentary Denies abscess Neurologic Neurologic: Denies headache(s) Psychiatric Psychiatric: Denies anxiety Endocrine Endocrinology: Denies polydipsia Hematologic/Lymphatic Hematologic/Lymphatic: Denies easy bleeding or easy bruising Allergic/Immunologic Allergic/Immunologic ED: Denies mouth swelling or tongue swelling EXAM Physical Exam Narrative Exam Narrative: 27-year-old female no acute distress. Sitting upright in bed. Significant other at bedside. H EENT exam mild contusion posterior scalp. No sign of hematoma. No laceration. Pupils round reactive light. No facial trauma. C-spine nontender. Trachea midline. Left lower lumbar tenderness no ecchymosis or bruising. Thoracic spine and ribs are nontender. Also paralumbar tenderness. No bruising. Pelvic girdle intact. Abdomen soft, nondistended. Normal bowel sounds no peritoneal signs. No bruising. Lungs are clear. Heart regular rhythm. Moving all 4 extremities. Nontender no deformity. Normal gripstrength. Normal dorsi plantarflexion. Normal range of motion. Neurologicallyshe is awake and alert with no focal motor deficits. GCS of 15. Const Vital Signs: 05/04/23 15:00 05/04/23 15:06 Temperature 98.6 F Temperature Source Temporal Pulse Rate 109 H Respiratory Rate 18 Respiratory Effort Normal Non-Labored Respiratory Depth Normal Respiratory Pattern Normal Blood Pressure 114/54 L Blood Pressure Mean 74 Pulse Ox 97 Oxygen Delivery Method Room Air Positive well nourished and well developed; Negative for cachectic, contracturesor unkempt General Appearance ED: well developed and NAD; Negative for unkempt, cachectic or contractures Nutritional Appearance: Negative for cachectic HEENT Reports normocephalic trauma and contusion; Negative for atraumatic, hematoma or tenderness Eyes PERRL and EOMs intact bilaterally General Eye ED: Negative for pale conjunctiva or scleral icterus Neck full ROM, no lymphadenopathy and supple Cardio regular rate, regular rhythm, S1 normal heart sound, S2 normal heart sound and no murmurs Rate: Negative for bradycardia or tachycardic Rhythm: Negative for abnormal rhythm Bruits: Negative for other GI non-distended and no masses; Negative for non-tender GI Narrative: Lower abdominal tenderness. Inspection: Negative for abdominal distention Auscultation: normoactive bowel sounds Palpation: soft; Negative for guarding or rebound tenderness present Back/Spine no CVA tenderness General Back: Negative for CVA tenderness Cervical Spine: Negative for cervical spine tenderness Thoracic Spine / Upper Back: Negative for ROM limited Lumbar Spine / Lower Back: lumbar spinal tenderness and paraspinal muscle tenderness Extremity Extremity Narrative: Nontender. No deformity. Full range of motion. Normal strength. Normal sensation. Neuro oriented x3, CN's II-XII intact bilaterally, moves all extremities, no focal motor deficits and no sensory deficits noted [place] Coma Scale: document GCS findings Spontaneous Obeys Commands Oriented 15 Sensorium / Orientation: alert, oriented to person, oriented to place, oriented to time and orientation impaired; Negative for confused, lethargic or stuporous Motor Exam: strength 5/5 throughout Psych mental status grossly normal and thought process normal Appearance: Negative for unkempt Attitude: No agitated Mood & Affect: Negative for depressed, anxious or tearful Skin Lesions: no lesions Rashes: no rashes Trauma: Negative for abrasion MDM MDM MDM Narrative Medical decision making narrative: 27-year-old female currently 14 weeks . Blunt abdominal trauma. Blood type a positive. CT abdomen pelvis which I discussed with patient and her significant other. Old 3D reconstruct the lumbar spine due to having pain not waiting for nausea. Tylenol for pain. Repeat exam patient doing well at 4:30 PM. Feeling better. Abdomen mildly tender suprapubic no peritoneal signs. Doing well. Feeling better. I did callthe community recreation programmer on-call for patient's [employer] comfortable with her being discharged with outpatient follow-up. Patient is comfortable with the plan. Tylenol for pain. Return if feeling worse or starts having vaginal bleeding. History & Record Review Discussion w/independent historian: Patient and Family Radiography Diagnostic Testing: Clinical Impression(s) from Imaging Studies Abdomen/Pelvis CTA 05/04/23 15:19 IMPRESSION: undefined Lumbar Spine CT 05/04/23 15:24 IMPRESSION: No evidence of compression deformity or malalignment. Electronically Signed: Javon Madrigal DO at 16:25 EDT Reading Location ID and State: [facility] / [place] , Service support , Discharge Plan Triage Chief Complaint: Fall ED Provider: Mustapha Serrato Dx/Rx/DC Orders Clinical Impression: Fall, Abdominal contusion, Closed head injury, Second trimester Instructions: ED Soft Tissue Contusion, ED Head Injury (Adult) Prescriptions: No Action lurasidone [Latuda] 20 mg Tablet 120 mg PO QHS citalopram [Celexa] 20 mg Tablet 40 mg PO QHS ondansetron 4 mg tablet,disintegrating 4 mg PO Q6H PRN (Reason: nausea and vomiting) Qty: 12 0RF 1 mg Tablet 1 tab PO DAILY Primary Care Provider: Magnolia Chen Referrals: Magnolia Chen MD [Primary Care Provider] - Radha Rowell MD [Med Staff - Active Staff] - As Needed Activity Restrictions/Additional Instructions: Tylenol for pain. Ice to your scalp. Follow-up with your [employer] as needed and scheduled. Return or follow-up with them if you develop any vaginal bleeding. The CAT scan of your abdomen and lumbar spine look good. You have good heart tones at 155. I spoke to themidwife on-call for your [employer]. Disposition Disposition: Home, Self Care What to do if you have Problems For any increased pain, shortness of breath, bleeding, nausea or vomiting, chestpain, or any unexpected problems, contact your Primary Care Provider. Call [facility] ([phone]) or report to the closest Emergency Room. Call 911 if necessary. 05/04/23 1640 <Electronically signed by Mustapha Serrato MD> Cosigner Signature (if applicable): CC: Dr. Magnolia Chen MD ~ Signed [facility] Work Phone: 1(763) 595-729405-30-2023 Miscellaneous Notes* Telephone Encounter - Radha Rowell MD - 04/30/2023 9:59 AM EDT Can you see if she has cultures? Radha Rowell MD * Telephone Encounter - Kelly Lundberg RN - 04/30/2023 9:32 AM EDT 13w6d [facility] Miscellaneous Notes* Telephone Encounter - Jaida Dubois LPN - 04/05/2023 3:32 PM EDT Spoke with pt's pharmacy carrier and medication was approved. Pt notified and will check with pharmacy later today. Jaida Dubois LPN * Telephone Encounter - Jaida Dubois LPN - 04/01/2023 3:44 PM EDT Electronic PA submitted for 140 Proof . Will await further response from pt's insurance. Jaida Dubois LPN documented in [facility]23 Miscellaneous Notes* Telephone Encounter - Sharon Florence RN - 04/03/2023 11:05 AM EDT Initial risk assessment form submitted 04/03/23 Sharon Florence RN documented in [facility] encounterMartin [facility]04-[facility]-[address] [facility] March 03, 2023 11:08pm Note Date/Time March 03, 2023 9:19 pm [facility] Medical Records Department [address] [place] [address] Emergency Department Summary 03/03/23 MR#: [id number] Acct: [id number] Name: YOKASTA PRETTY Rep #:[id number] : 1995 27 From: Clari LAINEZ PCP: Dr. Magnolia Chen MD Status:DEP ER Location: ED HPI <MIGEL Stallings - Last Filed: 03/03/23 22:14> HPI - Female History of Present Illness Chief Complaint: Vag Bld, Preg Narrative Narrative: BeenPatient presenting today due to vaginal bleeding and pelvic cramping that started yesterday around 6 PM. She states that the amount has ranged in severity but she has gone through about 3 pads. She is currently 6 to 7 weeks but has not had any care up to this point. She has a history of miscarriage and is G4, P1. She reports she feels nauseous and has vomited twice. She has had 3 episodes of loose stool. She denies any fever, chest pain, shortness of breath. [facility] <MIGEL Stallings - Last Filed: 03/03/23 22:14> [facility] Medical History Anxiety Asthma Bipolar disorder Chest pain Cholecystitis with cholelithiasis Depression Elective induction of labor planned Fatty liver Former smoker Gastric reflux Heartburn Injury of head and neck Marginal placenta previa Migraines PCOS (polycystic ovarian syndrome) Spontaneous vaginal delivery Wears glasses Home Medications lurasidone 20 mg tablet (Latuda) 120 mg PO QHS depression 11/20/21 [History Last Taken 03/04/22 22:00 40 mg] citalopram 20 mg tablet (Celexa) 40 mg PO QHS mood 09/23/22 [History Last Taken Unknown] multivitamin 1 tab PO DAILY 10/16/22 [History Last Taken Unknown] dicyclomine 20 mg tablet 20 mg PO TID PRN abdominal pain #14 tabs 10/21/22 [Rx Last Taken Unknown] ondansetron 4 mg disintegrating tablet 4 mg PO Q6H PRN nausea and vomiting #12 tabs 10/21/22 [Rx Last Taken Unknown] lansoprazole 30 mg capsule,delayed release (Prevacid) 30 mg PO DAILY #14 caps 11/08/22 [Rx Last Taken Unknown] sulfamethoxazole 800 mg-trimethoprim 160 mg tablet 1 tab PO BID #6 TABLETS 11/08/22 [Rx Last Taken Unknown] Allergy/AdvReac Type Severity Reaction Status Date / Time aripiprazole Allergy Hives Verified 03/03/23 21:00 Family History Father Anxiety Depression Mental disorder Suicide attempt Grandfather Cancer lung Grandmother Myocardial infarction CVA (cerebral vascular accident) Surgical History History of cholecystectomy History of surgery Hx of tonsillectomy Social History household members: family housing: house current occupational status: employed current occupation: [employer] sexually active: Yes Smoking Status: Former smoker quit date: 12/02/19 pack-years: 4 Electronic Cigarette Use: not used alcohol intake: current alcohol intake frequency: holidays/special occasions only substance use type: does not use what type of physical activity do you participate in: walking frequency: 5-6 times per week seatbelt use: always do you feel safe at home: Yes ROS <MIGEL Stallings - Last Filed: 03/03/23 22:14> ROS ED Constitutional Constitutional ED: Denies chills or fever(s) Cardiovascular Cardiovascular: Denies chest pain or palpitations Respiratory/Chest Respiratory/Chest: Denies cough or dyspnea Gastrointestinal Gastrointestinal: Reports abdominal pain, diarrhea, nausea and vomiting; Denies constipation Genitourinary Genitourinary ED: Denies dysuria, hematuria or urinary urgency Musculoskeletal Musculoskeletal: Denies back pain or neck pain Integumentary Denies Abrasions or rash Neurologic Neurologic: Denies dizziness or weakness Psychiatric Psychiatric: Denies anxiety, depression, suicidal ideation or suicidal thoughts EXAM <MIGEL Stallings - Last Filed: 03/03/23 22:14> Physical Exam Const Vital Signs: 03/03/23 20:48 03/03/23 20:48 03/03/23 22:47 Temperature 97.6 F L 97.6 F L Temperature Source Temporal Temporal Pulse Rate 97 97 80 Respiratory Rate 16 16 16 Blood Pressure 124/72 H 124/72 H 126/70 H Blood Pressure Mean 89 89 88 Pulse Ox 98 Positive well nourished, well developed and no apparent distress General Appearance ED: well developed HEENT Reports normocephalic and head/scalp atraumatic Mouth ED: Yes moist mucous membranes normal Eyes PERRL and EOMs intact bilaterally Neck full ROM and supple Chest Wall inspection of chest normal Resp normal respiratory effort and clear to auscultation bilaterally Cardio regular rate and regular rhythm GI soft to palpation, non-tender, non-distended and no masses Back/Spine normal ROM and normal to inspection Extremity normal to inspection and full ROM Neuro oriented x3, CN's II-XII intact bilaterally, moves all extremities, no focal motor deficits and no sensory deficits noted Sensorium / Orientation: awake and alert Psych mental status grossly normal and thought process normal Skin no rashes or lesions noted and no wounds <Dr. Emmanuel Corona DO - Last Filed: 03/03/23 22:55> Physical Exam Const Vital Signs: 03/03/23 20:48 03/03/23 20:48 03/03/23 22:47 Temperature 97.6 F L 97.6 F L Temperature Source Temporal Temporal Pulse Rate 97 97 80 Respiratory Rate 16 16 16 Blood Pressure 124/72 H 124/72 H 126/70 H Blood Pressure Mean 89 89 88 Pulse Ox 98 MDM <MIGEL Stallings - Last Filed: 03/03/23 22:14> [facility] Narrative Medical decision making narrative: Patient presenting today due to pelvic cramping and vaginal bleeding that started yesterday evening around 6 PM. She states that the amount of bleeding has ranged in severity but she is gone through about 3 pads. She is G4, P1 and has a history of miscarrying. She has not had any care up to this point but believes she is around 6 to 7 weeks . CBC will be obtained torule assess for anemia and leukocytosis, serum hCG quant will be obtained as well as patient's blood/Rh type. She is well-appearing and in no acute distress. Vital signs are stable. She has been given IV fluids. Transvaginal ultrasound will be obtained. Lab Data Labs: Laboratory Results - last 24 hr 03/03/23 03/03/23 21:19 21:19 WBC 8.2 RBC 4.29 Hgb 12.5 Hct 37.9 MCV 88.3 MCH 29.1 MCHC 33.0 RDW Std Deviation 45.1 H RDW Coeff of Leonor 14.0 Plt Count 402 MPV 10.2 Immature Gran % (Auto) 0.200 Neut % (Auto) 67.8 Lymph % (Auto) 22.0 Robeson % (Auto) 7.5 Eos % (Auto) 1.9 Baso % (Auto) 0.6 Absolute Neuts (auto) 5.6 Absolute Lymphs (auto) 1.81 Nucleated RBC % 0 HCG, Quant 5957 H Radiography Diagnostic Testing: Clinical Impression(s) from Imaging Studies Obstetrics Ultrasound 03/03/23 21:08 IMPRESSION: Early intrauterine at 5 weeks and 5 days. No specific abnormality. Electronically Signed: Antelmo Diaz MD at 22:42 EDT , <Dr. Emmanuel Corona, DO - Last Filed: 03/03/23 22:55> [facility] Narrative Medical decision making narrative: Patient presenting today due to pelvic cramping and vaginal bleeding that started yesterday evening around 6 PM. She states that the amount of bleeding has ranged in severity but she is gone through about 3 pads. She is G4, P1 and has a history of miscarrying. She has not had any care up to this point but believes she is around 6 to 7 weeks . CBC will be obtained torule assess for anemia and leukocytosis, serum hCG quant will be obtained as well as patient's blood/Rh type. She is well-appearing and in no acute distress. Vital signs are stable. She has been given IV fluids. Transvaginal ultrasound will be obtained. I have personally performed a face to face assessment of the patient and have reviewed the ANDRES Note. I performed a substantive portion of the visit including all aspects of the following. My chou findings include: History is [patient presents with vaginal bleeding that started yesterday. Patient thinks that she is 6 to 7 weeks . She is G4, P1 with several miscarriages. Patient complaining of some lower abdominal cramping. She is passed 1 clot. She denies passing tissue. She denies feeling lightheaded or dizzy. Patient denies urinary symptoms. She denies fever. She does not know her blood type.] Exam is [HEENT-PERRLA, EOMI. Cranial nerves II through XII grossly intact. TMs clear. Mucous membranes moist. No adenopathy. Cardiovascular-regular rate and rhythm without murmur or ectopy Lungs-clear to auscultation, chest wall stable without crepitus or subcu emphysema Abdomen-normoactive bowel sounds, soft, nontender, no rebound or rigidity, no peritoneal signs. Extremities-intact ?4, normal range of motion, normal pulses, atraumatic] Medical Decison Making [patient presents with vaginal bleeding x2 days. IV line established on arrival. She was given normal saline. CBC with differential obtained showed a white count of 8.2 and hemoglobin 12.5 with a platelet count of 402. Quantitative hCG was 5957. Blood type is O+. Patient had pelvic ultrasound that showed intrauterine measuring 5 weeks and 5 days with no specific abnormality. No cardiac activity noted at this time. I discussed case with [employer] on-call for Dr. Roula Corona who is her Dr. Corona and they will follow patient on in the office. Patient will require repeat quantitative hCG in 2 days. Patient advised to return to the ER if persistent heavy bleeding if going through more than a pad an hour for 4 consecutive hours or severe abdominal pain or if she get lightheaded or dizzy or condition should worsen anyway.] Other additions or changes: [None] Lab Data Labs: Laboratory Results - last 24 hr 03/03/23 03/03/23 21:19 21:19 WBC 8.2 RBC 4.29 Hgb 12.5 Hct 37.9 MCV 88.3 MCH 29.1 MCHC 33.0 RDW Std Deviation 45.1 H RDW Coeff of Leonor 14.0 Plt Count 402 MPV 10.2 Immature Gran % (Auto) 0.200 Neut % (Auto) 67.8 Lymph % (Auto) 22.0 Robeson % (Auto) 7.5 Eos % (Auto) 1.9 Baso % (Auto) 0.6 Absolute Neuts (auto) 5.6 Absolute Lymphs (auto) 1.81 Nucleated RBC % 0 HCG, Quant 5957 H Radiography Diagnostic Testing: Clinical Impression(s) from Imaging Studies Obstetrics Ultrasound 03/03/23 21:08 IMPRESSION: Early intrauterine at 5 weeks and 5 days. No specific abnormality. Electronically Signed: Antelmo Diaz MD at 22:42 EDT , Discharge Plan Triage Chief Complaint: Vag Bld, Preg ED Midlevel Provider: Clari Burnham ED Provider: Emmanuel Corona Dx/Rx/DC Orders Clinical Impression: Threatened in first trimester Instructions: ED Possible Miscarriage ... Prescriptions: No Action multivitamin Tablet 1 tab PO DAILY Latuda 20 mg Tablet 120 mg PO QHS citalopram [Celexa] 20 mg Tablet 40 mg PO QHS dicyclomine 20 mg tablet 20 mg PO TID PRN (Reason: abdominal pain) Qty: 14 0RF ondansetron 4 mg tablet,disintegrating 4 mg PO Q6H PRN (Reason: nausea and vomiting) Qty: 12 0RF sulfamethoxazole-trimethoprim [sulfamethoxazole-trimethoprim] 800-160 mg tablet 1 tab PO BID Qty: 6 0RF lansoprazole [Prevacid] 30 mg capsule,delayed release(DR/EC) 30 mg PO DAILY Qty: 14 0RF Primary Care Provider: Magnolia Chen Referrals: Magnolia Chen MD [Primary Care Provider] - Roula Corona DO [Med Staff - Active Staff] - 2 Days Activity Restrictions/Additional Instructions: Follow-up in 2 days for repeat quantitative hCG level. Disposition Disposition: Home, Self Care What to do if you have Problems For any increased pain, shortness of breath, bleeding, nausea or vomiting, chestpain, or any unexpected problems, contact your Primary Care Provider. Call [facility] ([phone]) or report to the closest Emergency Room. Call 911 if necessary. 03/03/232213 <Electronically signed by Clari LAINEZ> Cosigner Signature (if applicable): 03/03/232307 <Electronically signed by Emmanuel Corona DO> CC: Dr. Magnolia Chen MD ~ Signed [facility] Work Phone: [phone] History of Present illness Narrative* Meg Bettencourt MD - 02/08/2023 1:40 PM EST Patient presents with: Diarrhea: Diarrhea, vomiting, chills and MARQUEZ x 1 day HPI: Feeling sick since yesterday. Several coworkers have had similar symptoms. Positive symptoms: Chills, Headache, Nausea, Vomiting, Diarrhea, Fatigue, Negative symptoms: Cough, Nasal Congestion, Rhinorrhea, blood in emesis or stool OTC: pepto PAST MEDICAL HISTORY Diagnosis Date Anxiety Depression MEDICATIONS: Current Outpatient Medications Medication Sig citalopram (CELEXA) 20 mg tablet VENTOLIN HFA 90 mcg/actuation inhaler loratadine (CLARITIN) 10 mg tablet lurasidone (LATUDA) 20 mg tablet Take 20 mg by mouth. No current facility-administered medications for this visit. ALLERGIES: ALLERGIES Allergen Reactions Abilify [Aripiprazo* Hives VITALS: BP 112/82 Pulse 69 Temp 36.7 C (98.1 F) (Tympanic) Resp 18 Wt 122.4 kg (269 lb 12.8 oz) LMP 11/13/2016 SpO2 98% BMI 42.26 kg/m PHYSICAL EXAM: GEN: mildly ill appearing HEENT: PERRL, EOMI, conjunctiva clear Throat: moist mucous membranes, no erythema, no exudate Neck: supple, no thyromegaly, no lymphadenopathy HEART: regular rate and rhythm, no murmurs LUNGS: clear to auscultation, no wheezes or crackles, no increased WOB ABD: Soft, non-distended, non-tender, no masses ASSESSMENT/PLAN: 1. Gastroenteritis - ICD9: 558.9, ICD10: K52.9 Hydration with fluids encouraged. Resume normal solid intake as tolerated. Hand hygiene to reduce transmission. Follow up in the ER with signs of dehydration, increasing abdominal pain, high fever, or blood in vomit or stool. Meg Bettencourt MD [facility] Diagnosis Onset Date Resolution Status Marginal placenta previa acu te acute acute Headache in acute [facility] Work Phone: Evaluation note* Diagnosis Onset Date Resolution Status Marginal placenta previa acu te acute acute Headache in acute Amniotic fluid leaking acute [facility] Work Phone: Evaluation note* Diagnosis Onset Date Resolution Status Marginal placenta previa acu te acute acute Headache in acute Amniotic fluid leaking acute False labor acute acute acute Spontaneous vaginal delivery acute [facility] Work Phone: evaluation note* Diagnosis Onset Date Resolution Status Cholecystitis with cholelithiasis acute [facility] Work Phone: Evaluation note* Diagnosis Onset Date Resolution Status S/P cholecystectomy acute Abdominal pain acute S/P cholecystectomy acute [facility] Work Phone: Evaluation note* Diagnosis Onset Date Resolution Status S/P cholecystectomy resolved Abdominal pain acute S/P cholecystectomy resolved COVID-19 vaccination declined noneactive Establishing care with new doctor, encounter for noneactive Fatty liver noneactive Dysuria noneactive Suspected sleep apnea noneac tive S/P cholecystectomy noneacti ve Anxiety and depression nonea ctive Vitamin D deficiency noneact beatrice [facility] Work Phone: Evaluation note* Diagnosis Onset Date Resolution Status S/P cholecystectomy resolved Abdominal pain acute S/P cholecystectomy resolved COVID-19 vaccination declined noneactive Establishing care with new doctor, encounter for noneactive Fatty liver noneactive Dysuria noneactive Suspected sleep apnea noneac tive S/P cholecystectomy noneacti ve Anxiety and depression nonea ctive Vitamin D deficiency noneact beatrice Abdominal pain acute Diarrhea acute [facility] Work Phone: Evaluation note* Diagnosis Gastroenteritis- Primary Other and unspecified noninfectious gastroenteritis and colitis documented in this encounter [facility] noteNo assessment information [facility] Work Phone: Evaluation note* Diagnosis with inconclusive viability, single or unspecified fetus- Primary Supervision of other high risk pregnancies, first trimester BMI 40.0-44.9, adult ([facility]) Body Mass Index 40.0-44.9, adult documented in this encounter [facility] note* Diagnosis Onset Date Resolution Status Gout attack acute [facility] Work Phone: Evaluation note* Diagnosis Encounter for anatomic survey- Primary Supervision of other high risk pregnancies, first trimester 13 weeks gestation of state, incidental Obesity affecting in second trimester, unspecified obesity type documented in this encounter [facility] note* Diagnosis Supervision of high risk in second trimester- Primary Unspecified high-risk 22 weeks gestation of state, incidental Leg cramps in Other specified complication of , unspecified as to episode of care documented in this encounter [facility] note* Diagnosis Prurigo of in second trimester- Primary Abdominal pain in , second trimester [facility]* Diagnosis 24 weeks gestation of - Primary state, incidental Supervision of other high risk pregnancies, first trimester Vaginal burning Other specified symptom associated with female genital organs Vaginal discharge during in second trimester Pruritus Unspecified pruritic disorder Gestational proteinuria in second trimester Unspecified antepartum renal disease documented in this encounter [facility] note* Diagnosis 25 weeks gestation of - Primary state, incidental Supervision of high risk in second trimester Unspecified high-risk Generalized pruritus Unspecified pruritic disorder documented in this encounter [facility] note* Diagnosis Supervision of high risk in second trimester- Primary Unspecified high-risk 27 weeks gestation of state, incidental Need for vaccination Need for prophylactic vaccination and inoculation against unspecified single disease Maternal obesity syndrome in third trimester BMI 39.0-39.9,adult Body Mass Index 39.0-39.9, adult documented in this encounter [facility] note* Diagnosis Onset Date Resolution Status 25 weeks gestation of acute Cramping affecting , antepartum acute [facility] Work Phone: evaluation note* Diagnosis Maternal obesity syndrome in third trimester- Primary Supervision of high risk in third trimester Unspecified high-risk 33 weeks gestation of state, incidental [facility]* Diagnosis Encounter for ultrasound to check growth- Primary Encounter for routine screening for malformation using ultrasonics Supervision of high risk in second trimester Unspecified high-risk Maternal obesity syndrome in third trimester BMI 39.0-39.9,adult Body Mass Index 39.0-39.9, adult 33 weeks gestation of state, incidental documented in this encounter [facility] note* Diagnosis Onset Date Resolution Status 25 weeks gestation of acute Cramping affecting , antepartum acute [address] [facility] Work Phone: evaluation note* Diagnosis 34 weeks gestation of - Primary state, incidental Obesity affecting , antepartum, unspecified obesity type Supervision of high risk in third trimester Unspecified high-risk UTI (urinary tract infection) during , third trimester [facility]* Diagnosis Obesity affecting , antepartum, unspecified obesity type- Primary Supervision of high risk in third trimester Unspecified high-risk UTI (urinary tract infection) during , third trimester 35 weeks gestation of state, incidental [facility]* Diagnosis Supervision of high risk in third trimester- Primary Unspecified high-risk 36 weeks gestation of state, incidental [facility]* Diagnosis Supervision of high risk in third trimester- Primary Unspecified high-risk 36 weeks gestation of state, incidental Obesity affecting , antepartum, unspecified obesity type UTI (urinary tract infection) during , third trimester [facility]* Diagnosis Onset Date Resolution Status 25 weeks gestation of acute Cramping affecting , antepartum acute 29 weeks gestation of acute 34 weeks gestation of acute No leakage of amniotic fluid into vagina acute 37 weeks gestation of acute Asthma acute Bipolar disorder acute Cramping affecting , antepartum acute No leakage of amniotic fluid into vagina acute [facility] Work Phone: Evaluation note* Diagnosis Supervision of high risk in third trimester- Primary Unspecified high-risk Maternal obesity syndrome in third trimester BMI 40.0-44.9, adult (HCC) Body Mass Index 40.0-44.9, adult UTI (urinary tract infection) during , third trimester documented [facility]* Diagnosis Onset Date Resolution Status 25 weeks gestation of acute Cramping affecting , antepartum acute 29 weeks gestation of acute 34 weeks gestation of acute No leakage of amniotic fluid into vagina acute 37 weeks gestation of acute Asthma acute Bipolar disorder acute Cramping affecting , antepartum acute No leakage of amniotic fluid into vagina acute 37 weeks gestation of acute History of depression acute Lactating mother acute Obesity acute Positive GBS test acute [id number] acute SROM (spontaneous rupture of membranes) acute UTI in acute Vaginal delivery acute [facility] Work Phone: evaluation note* Diagnosis Maternal obesity syndrome in third trimester Supervision of high risk in third trimester Unspecified high-risk documented in this encounter [facility] note* Diagnosis URI, acute- Primary Acute upper respiratory infections of unspecified site Acute cough URI, acute Acute upper respiratory infections of unspecified site Acute cough documented in this encounter [facility] note* Diagnosis URI, acute Acute upper respiratory infections of unspecified site Acute cough documented in this encounter [facility] note* Diagnosis Allergic reaction, initial encounter- Primary documented in this encounter [facility] note* Diagnosis Urinary frequency- Primary Acute right flank pain Abdominal pain, unspecified site Dizziness Dizziness and giddiness documented in this encounter [facility] note* Diagnosis Maternal obesity syndrome in third trimester- Primary BMI 40.0-44.9, adult ([facility]) Body Mass Index 40.0-44.9, adult History of PCOS Personal history of other genital system and obstetric disorders documented in this encounter [facility] note* Diagnosis Encounter for supervision of high risk in first trimester, antepartum- Primary with uncertain dates in first trimester Obesity affecting in first trimester, unspecified obesity type History of miscarriage Personal history of other genital system and obstetric disorders Depression affecting Family history of defect Family history of congenital anomalies Screen for STD (sexually transmitted disease) Screening examination for venereal disease Screening for cervical cancer Screening for malignant neoplasm of the cervix Dysuria during , antepartum Hypothyroidism affecting in first trimester Anxiety disorder affecting , antepartum History of trauma Personal history of other injury Borderline personality disorder (HCC) Borderline personality disorder PTSD (post-traumatic stress disorder) Posttraumatic stress disorder PCOS (polycystic ovarian syndrome) Polycystic ovaries Nausea and vomiting during Dizziness Dizziness and giddiness documented in this encounter [facility] note* Diagnosis Encounter for screening for malformation using ultrasound- Primary 13 weeks gestation of state, incidental documented in this encounter [facility] note* Diagnosis Supervision of high risk in second trimester- Primary Unspecified high-risk 13 weeks gestation of state, incidental Obesity affecting in first trimester, unspecified obesity type Hypothyroidism affecting in first trimester UTI (urinary tract infection) in , antepartum Infections of genitourinary tract antepartum Anxiety disorder affecting , antepartum Borderline personality disorder (HCC) Borderline personality disorder PTSD (post-traumatic stress disorder) Posttraumatic stress disorder History of depression History of trauma Personal history of other injury [facility]* Diagnosis Encounter for supervision of high risk in first trimester, antepartum ([facility])- Primary 17 weeks gestation of ([facility]) state, incidental Dizziness Dizziness and giddiness Rubella non-immune status, antepartum ([facility]) Other specified complication, antepartum Hypothyroidism affecting in first trimester ([facility]) Borderline personality disorder ([facility]) Borderline personality disorder History of depression Personal history of other mental disorder History of depression Anxiety disorder affecting , antepartum ([facility]) [facility] this encounter [facility] Diagnosis Supervision of high risk in second trimester ([facility])- Primary Unspecified high-risk 20 weeks gestation of ([facility]) state, incidental Dysuria Hypothyroidism affecting in second trimester ([facility]) Obesity affecting in second trimester, unspecified obesity type ([facility]) documented [facility] this encounter [facility]* Diagnosis Encounter for anatomic survey ([facility])- Primary Encounter for anatomic survey Obesity affecting in first trimester, unspecified obesity type ([facility]) Family history of defect Family history of congenital anomalies 20 weeks gestation of ([facility]) state, incidental [facility] this encounter [facility]* Diagnosis Pyelonephritis complicating , antepartum ([facility])- Primary Infections of genitourinary tract antepartum Dysuria in ([facility]) Other specified complication of , unspecified as to episode of care 20 weeks gestation of ([facility]) state, incidental Elevated blood pressure reading in office without diagnosis of hypertension Obesity affecting in second trimester ([facility]) Anxiety disorder affecting , antepartum ([facility]) Hypothyroidism affecting in second trimester ([facility]) 21 weeks gestation of ([facility])- Primary state, incidental Supervision of high risk in second trimester ([facility]) Unspecified high-risk Pyelonephritis complicating , antepartum ([facility]) Infections of genitourinary tract antepartum Hypothyroidism affecting in second trimester ([facility]) documented in this encounter [facility] note* Diagnosis Pyelonephritis complicating , antepartum ([facility])- Primary Infections of genitourinary tract antepartum Dysuria in ([facility]) Other specified complication of , unspecified as to episode of care Pyelonephritis affecting ([facility])- Primary Pyelonephritis affecting in second trimester ([facility]) History of depression Personal history of other mental disorder Obesity affecting in second trimester ([facility]) Anxiety disorder affecting , antepartum (HCC) Hypothyroidism affecting in second trimester ([facility]) Rubella non-immune status, antepartum ([facility]) Other specified complication, antepartum Elevated blood pressure reading in office without diagnosis of hypertension Prematurity of fetus (HCC) Other infants, unspecified (weight) Flank pain with history of urolithiasis Nicotine use disorder, F17.2 Tobacco use disorder Back pain affecting ([facility]) Encounter for supervision of high risk in second trimester, antepartum ([facility])- Primary 24 weeks gestation of ([facility]) state, incidental Pyelonephritis complicating , antepartum ([facility]) Infections of genitourinary tract antepartum Hypothyroidism affecting in second trimester ([facility]) Obesity affecting in second trimester, unspecified obesity type ([facility]) Anemia complicating , second trimester ([facility]) Screening for diabetes mellitus Pruritus of in second trimester ([facility]) documented in this encounter [facility] note* Diagnosis Pyelonephritis complicating , antepartum ([facility])- Primary Infections of genitourinary tract antepartum Dysuria in ([facility]) Other specified complication of , unspecified as to episode of care Pyelonephritis affecting ([facility])- Primary Pyelonephritis affecting in second trimester ([facility]) History of depression Personal history of other mental disorder Obesity affecting in second trimester ([facility]) Anxiety disorder affecting , antepartum ([facility]) Hypothyroidism affecting in second trimester ([facility]) Rubella non-immune status, antepartum ([facility]) Other specified complication, antepartum Elevated blood pressure reading in office without diagnosis of hypertension Prematurity of fetus ([facility]) Other infants, unspecified (weight) Flank pain with history of urolithiasis Nicotine use disorder, F17.2 Tobacco use disorder Back pain affecting ([facility]) Elevated TSH- Primary Nonspecific abnormal results of thyroid function study 24 weeks gestation of ([facility]) state, incidental [facility] Diagnosis Pyelonephritis complicating , antepartum ([facility])- Primary Infections of genitourinary tract antepartum Dysuria in ([facility]) Other specified complication of , unspecified as to episode of care Pyelonephritis affecting ([facility])- Primary Pyelonephritis affecting in second trimester (HCC) History of depression Personal history of other mental disorder Obesity affecting in second trimester (HCC) Anxiety disorder affecting , antepartum (HCC) Rubella non-immune status, antepartum (HCC) Other specified complication, antepartum Elevated blood pressure reading in office without diagnosis of hypertension Prematurity of fetus (HCC) Other infants, unspecified (weight) Flank pain with history of urolithiasis Nicotine use disorder, F17.2 Tobacco use disorder Back pain affecting (HCC) Hypothyroidism in , antepartum, second trimester (HCC)- Primary Elevated TSH Nonspecific abnormal results of thyroid function study 24 weeks gestation of (HCC) state, incidental [facility] Diagnosis Pyelonephritis complicating , antepartum ([facility])- Primary Infections of genitourinary tract antepartum Dysuria in ([facility]) Other specified complication of , unspecified as to episode of care Pyelonephritis affecting ([facility])- Primary Pyelonephritis affecting in second trimester ([facility]) History of depression Personal history of other mental disorder Obesity affecting in second trimester (HCC) Anxiety disorder affecting , antepartum (HCC) Rubella non-immune status, antepartum (HCC) Other specified complication, antepartum Elevated blood pressure reading in office without diagnosis of hypertension Prematurity of fetus (HCC) Other infants, unspecified (weight) Flank pain with history of urolithiasis Nicotine use disorder, F17.2 Tobacco use disorder Back pain affecting (HCC) Obesity affecting in third trimester, unspecified obesity type (HCC)- Primary Pyelonephritis complicating , antepartum ([facility]) Infections of genitourinary tract antepartum Hypothyroidism affecting in second trimester (HCC) Anemia complicating , third trimester (HCC) 28 weeks gestation of (HCC) state, incidental * Assessment & Plan Note - Amberly Sanchez MD - 06/03/2025 10:38 AM EDTAssociated Problem(s): Pyelonephritis complicating , antepartum ([facility]) On macrobid suppression. * Assessment & Plan Note - Amberly Sanchez MD - 06/03/2025 10:38 AM EDTAssociated Problem(s): Hypothyroidism affecting in second trimester (HCC) Follows with endo. Continue synthroid. documented [facility] Diagnosis Hypothyroidism affecting in second trimester (HCC)- Primary Pyelonephritis complicating , antepartum (HCC)- Primary Infections of genitourinary tract antepartum Dysuria in (HCC) Other specified complication of , unspecified as to episode of care Pyelonephritis affecting (HCC)- Primary Pyelonephritis affecting in second trimester (HCC) History of depression Personal history of other mental disorder Obesity affecting in second trimester (HCC) Anxiety disorder affecting , antepartum (HCC) Rubella non-immune status, antepartum (HCC) Other specified complication, antepartum Elevated blood pressure reading in office without diagnosis of hypertension Prematurity of fetus (HCC) Other infants, unspecified (weight) Flank pain with history of urolithiasis Nicotine use disorder, F17.2 Tobacco use disorder Back pain affecting (HCC) Obesity affecting in third trimester, unspecified obesity type (HCC)- Primary Pyelonephritis complicating , antepartum (HCC) Infections of genitourinary tract antepartum Hypothyroidism affecting in second trimester (HCC) Anemia complicating , third trimester ([facility]) 28 weeks gestation of ([facility]) state, incidental documented in this encounter [facility] note* Diagnosis Pyelonephritis complicating , antepartum (HCC)- Primary Infections of genitourinary tract antepartum Dysuria in (HCC) Other specified complication of , unspecified as to episode of care Pyelonephritis affecting (HCC)- Primary Pyelonephritis affecting in second trimester (HCC) History of depression Personal history of other mental disorder Obesity affecting in second trimester (HCC) Anxiety disorder affecting , antepartum (HCC) Rubella non-immune status, antepartum (HCC) Other specified complication, antepartum Elevated blood pressure reading in office without diagnosis of hypertension Prematurity of fetus (HCC) Other infants, unspecified (weight) Flank pain with history of urolithiasis Nicotine use disorder, F17.2 Tobacco use disorder Back pain affecting (HCC) Obesity affecting in third trimester, unspecified obesity type (HCC)- Primary Pyelonephritis complicating , antepartum (HCC) Infections of genitourinary tract antepartum Hypothyroidism affecting in second trimester (HCC) Anemia complicating , third trimester (HCC) 28 weeks gestation of (HCC) state, incidental Supervision of high risk in third trimester (HCC)- Primary Unspecified high-risk Anemia complicating , third trimester (HCC) Obesity affecting in third trimester, unspecified obesity type (HCC) Hypothyroidism affecting in second trimester (HCC) Decreased movements in third trimester, single or unspecified fetus (HCC) 30 weeks gestation of ([facility]) state, incidental * Assessment & Plan Note - Tom Vaz MD - 06/16/2025 10:06 AM EDTAssociated Problem(s): Hypothyroidism affecting in second trimester ([facility]) Continue synthroid [facility] Diagnosis Pyelonephritis complicating , antepartum (HCC)- Primary Infections of genitourinary tract antepartum Dysuria in ([facility]) Other specified complication of , unspecified as to episode of care Pyelonephritis affecting (HCC)- Primary Pyelonephritis affecting in second trimester ([facility]) History of depression Personal history of other mental disorder Obesity affecting in second trimester (HCC) Anxiety disorder affecting , antepartum ([facility]) Rubella non-immune status, antepartum ([facility]) Other specified complication, antepartum Elevated blood pressure reading in office without diagnosis of hypertension Prematurity of fetus ([facility]) Other infants, unspecified (weight) Flank pain with history of urolithiasis Nicotine use disorder, F17.2 Tobacco use disorder Back pain affecting (HCC) Obesity affecting in third trimester, unspecified obesity type (HCC)- Primary Pyelonephritis complicating , antepartum (HCC) Infections of genitourinary tract antepartum Hypothyroidism affecting in second trimester (HCC) Anemia complicating , third trimester (HCC) 28 weeks gestation of ([facility]) state, incidental Supervision of high risk in third trimester (HCC)- Primary Unspecified high-risk Anemia complicating , third trimester (HCC) Obesity affecting in third trimester, unspecified obesity type (HCC) Hypothyroidism affecting in second trimester (HCC) Decreased movements in third trimester, single or unspecified fetus (HCC) 30 weeks gestation of ([facility]) state, incidental Obesity affecting in third trimester, unspecified obesity type ([facility])- Primary Supervision of high risk in third trimester ([facility]) Unspecified high-risk 31 weeks gestation of ([facility]) state, incidental Dysuria documented in this encounter [facility] note* Diagnosis Pyelonephritis complicating , antepartum ([facility])- Primary Infections of genitourinary tract antepartum Dysuria in ([facility]) Other specified complication of , unspecified as to episode of care Pyelonephritis affecting ([facility])- Primary Pyelonephritis affecting in second trimester ([facility]) History of depression Personal history of other mental disorder Obesity affecting in second trimester ([facility]) Anxiety disorder affecting , antepartum ([facility]) Rubella non-immune status, antepartum ([facility]) Other specified complication, antepartum Elevated blood pressure reading in office without diagnosis of hypertension Prematurity of fetus ([facility]) Other infants, unspecified (weight) Flank pain with history of urolithiasis Nicotine use disorder, F17.2 Tobacco use disorder Back pain affecting ([facility]) Obesity affecting in third trimester, unspecified obesity type ([facility])- Primary Pyelonephritis complicating , antepartum ([facility]) Infections of genitourinary tract antepartum Hypothyroidism affecting in second trimester ([facility]) Anemia complicating , third trimester ([facility]) 28 weeks gestation of ([facility]) state, incidental Supervision of high risk in third trimester ([facility])- Primary Unspecified high-risk Anemia complicating , third trimester ([facility]) Obesity affecting in third trimester, unspecified obesity type ([facility]) Hypothyroidism affecting in second trimester ([facility]) Decreased movements in third trimester, single or unspecified fetus ([facility]) 30 weeks gestation of ([facility]) state, incidental Obesity affecting in third trimester, unspecified obesity type ([facility])- Primary 32 weeks gestation of ([facility]) state, incidental Supervision of high risk in third trimester ([facility]) Unspecified high-risk documented in this encounter [facility] note* Diagnosis Pyelonephritis complicating , antepartum ([facility])- Primary Infections of genitourinary tract antepartum Dysuria in ([facility]) Other specified complication of , unspecified as to episode of care Pyelonephritis affecting ([facility])- Primary Pyelonephritis affecting in second trimester ([facility]) History of depression Personal history of other mental disorder Obesity affecting in second trimester (HCC) Anxiety disorder affecting , antepartum (HCC) Rubella non-immune status, antepartum (HCC) Other specified complication, antepartum Elevated blood pressure reading in office without diagnosis of hypertension Prematurity of fetus (HCC) Other infants, unspecified (weight) Flank pain with history of urolithiasis Nicotine use disorder, F17.2 Tobacco use disorder Back pain affecting ([facility]) Obesity affecting in third trimester, unspecified obesity type ([facility])- Primary Pyelonephritis complicating , antepartum ([facility]) Infections of genitourinary tract antepartum Hypothyroidism affecting in second trimester ([facility]) Anemia complicating , third trimester ([facility]) 28 weeks gestation of ([facility]) state, incidental Supervision of high risk in third trimester ([facility])- Primary Unspecified high-risk Anemia complicating , third trimester ([facility]) Obesity affecting in third trimester, unspecified obesity type ([facility]) Hypothyroidism affecting in second trimester ([facility]) Decreased movements in third trimester, single or unspecified fetus ([facility]) 30 weeks gestation of ([facility]) state, incidental Encounter for ultrasound to check growth ([facility])- Primary Encounter for routine screening for malformation using ultrasonics Obesity affecting in third trimester, unspecified obesity type ([facility]) 32 weeks gestation of ([facility]) state, incidental [facility] Diagnosis Pyelonephritis complicating , antepartum ([facility])- Primary Infections of genitourinary tract antepartum Dysuria in ([facility]) Other specified complication of , unspecified as to episode of care Pyelonephritis affecting ([facility])- Primary Pyelonephritis affecting in second trimester ([facility]) History of depression Personal history of other mental disorder Obesity affecting in second trimester ([facility]) Anxiety disorder affecting , antepartum (HCC) Rubella non-immune status, antepartum (HCC) Other specified complication, antepartum Elevated blood pressure reading in office without diagnosis of hypertension Prematurity of fetus (HCC) Other infants, unspecified (weight) Flank pain with history of urolithiasis Nicotine use disorder, F17.2 Tobacco use disorder Back pain affecting (HCC) Obesity affecting in third trimester, unspecified obesity type (HCC)- Primary Pyelonephritis complicating , antepartum (HCC) Infections of genitourinary tract antepartum Hypothyroidism affecting in second trimester (HCC) Anemia complicating , third trimester (HCC) 28 weeks gestation of (HCC) state, incidental Supervision of high risk in third trimester (HCC)- Primary Unspecified high-risk Anemia complicating , third trimester (HCC) Obesity affecting in third trimester, unspecified obesity type (HCC) Hypothyroidism affecting in second trimester (HCC) Decreased movements in third trimester, single or unspecified fetus (HCC) 30 weeks gestation of (HCC) state, incidental 34 weeks gestation of ([facility])- Primary state, incidental UTI (urinary tract infection) in , antepartum ([facility]) Infections of genitourinary tract antepartum Obesity affecting in third trimester, unspecified obesity type ([facility]) * Assessment & Plan Note - Amberly Sanchez MD - 07/13/2025 12:27 PM EDTAssociated Problem(s): UTI (urinary tract infection) in , antepartum ([facility]) Continue macrobid Orders: BACTERIAL CULTURE, URINE [facility] Diagnosis Pyelonephritis complicating , antepartum (HCC)- Primary Infections of genitourinary tract antepartum Dysuria in ([facility]) Other specified complication of , unspecified as to episode of care Pyelonephritis affecting (HCC)- Primary Pyelonephritis affecting in second trimester (HCC) History of depression Personal history of other mental disorder Obesity affecting in second trimester (HCC) Anxiety disorder affecting , antepartum (HCC) Rubella non-immune status, antepartum ([facility]) Other specified complication, antepartum Elevated blood pressure reading in office without diagnosis of hypertension Prematurity of fetus (HCC) Other infants, unspecified (weight) Flank pain with history of urolithiasis Nicotine use disorder, F17.2 Tobacco use disorder Back pain affecting (HCC) Obesity affecting in third trimester, unspecified obesity type (HCC)- Primary Pyelonephritis complicating , antepartum (HCC) Infections of genitourinary tract antepartum Hypothyroidism affecting in second trimester (HCC) Anemia complicating , third trimester (HCC) 28 weeks gestation of (HCC) state, incidental Supervision of high risk in third trimester (HCC)- Primary Unspecified high-risk Anemia complicating , third trimester (HCC) Obesity affecting in third trimester, unspecified obesity type (HCC) Hypothyroidism affecting in second trimester (HCC) Decreased movements in third trimester, single or unspecified fetus (HCC) 30 weeks gestation of (HCC) state, incidental 34 weeks gestation of (HCC)- Primary state, incidental UTI (urinary tract infection) in , antepartum (HCC) Infections of genitourinary tract antepartum Obesity affecting in third trimester, unspecified obesity type (HCC) Obesity affecting in third trimester, unspecified obesity type (HCC)- Primary [facility] Author Ari Blum [facility] October 10, 2023 7:09am Note Date/Time October 10, 2023 7 :09am [facility] Medical Records Department [address] [place] [address] OB Triage Physician Note 10/10/23 0703 MR#: [id number] Acct: [id number] Name: YOKASTA PRETTY Rep #:[id number] : 1995 27 From: Ari Blum CNM PCP: Dr. Magnolia Chen MD Status:REG CLI Y Location: [id number] HPI - General HPI Narrative YOKASTA PRETTY, is a 27 F at 37.1 weeks gestation who presents to triage with leaking fluid. Stated had a large gush of fluid at home and soaked through a pad. Feeling occasional contractions and positive movement. Maternal Data Information CLAUDIO Calculator Estimated Delivery Date Method Current WG Current Estimate 10/30/23 Manual 37w 1d PFSH PFSH Medical History (Updated 10/10/23 @ 07:09 by Ari Blum CNM) Anxiety Asthma Bipolar disorder Chest pain Cholecystitis with cholelithiasis Depression Elective induction of labor planned Fatty liver Former smoker Gastric reflux Heartburn Injury of head and neck Liver disease Marginal placenta previa Migraines MRSA infection PCOS (polycystic ovarian syndrome) depression Spontaneous vaginal delivery Thyroid disorder Trauma Wears glasses Home Medications [id number] 1 mg tablet 1 tab PO DAILY 05/04/23 [History Last Taken 10/09/23] nitrofurantoin monohydrate/macrocrystals 100 mg capsule (Macrobid) 100 mg PO DAILY 09/22/23 [History Last Taken 10/09/23] albuterol 90 mcg/actuation aerosol inhaler mcg inhalation 10/10/23 [History Last Taken Unknown] Allergy/AdvReac Type Severity Reaction Status Date / Time aripiprazole Allergy Hives Verified 10/10/23 04:48 Family History Father Anxiety Depression Mental disorder Suicide attempt Grandfather Cancer lung Grandmother Myocardial infarction CVA (cerebral vascular accident) Surgical History History of cholecystectomy History of surgery Hx of tonsillectomy Social History household members: family housing: house current occupational status: employed current occupation: [employer] sexually active: Yes Smoking Status: Former smoker quit date: 12/02/19 pack-years: 4 Electronic Cigarette Use: not used alcohol intake: current alcohol intake frequency: holidays/special occasions only substance use type: does not use what type of physical activity do you participate in: walking frequency: 5-6 times per week seatbelt use: always do you feel safe at home: Yes History 1 Elective abortions Hx Para 1 Spontaneous abortions Hx # Term Pregnancies Ectopic pregnancies Hx # Pregnancies Multiple births # of living children 1 ROS Eyes Eyes: Denies blurry vision Cardiovascular Cardiovascular: Reports none; Denies chest pain at rest, chest pain with activity or dizziness Respiratory/Chest Respiratory/Chest: Denies cough or dyspnea Gastrointestinal Gastrointestinal: Reports none and other; Denies diarrhea or vomiting Genitourinary Genitourinary: Denies dysuria Musculoskeletal Musculoskeletal: Reports none Integumentary Integumentary: Reports none; Denies rash Neurologic Neurologic: Denies dizziness, headache(s) or other visual disturbances Psychiatric Psychiatric: Reports none Physical Exam Const alert and no apparent distress General Appearance: cooperative Orientation / Consciousness: awake Exam Limitations: no limitations HEENT normocephalic Eyes General Eye: normal appearance of both eyes Neck full ROM Chest inspection of chest normal Resp normal respiratory effort and normal air movement Effort and Inspection: symmetric chest movement Auscultation: clear to auscultation bilaterally Cardio regular rate GI soft to palpation, non-tender and non-distended Inspection: and other Back/Spine normal ROM Extremity full ROM, normal capillary refill and no calf tenderness Skin no rashes or lesions noted Neuro oriented x3 and CN's II-XII intact bilaterally Psych mental status grossly normal Assessment & Plan (1) No leakage of amniotic fluid into vagina: (2) Cramping affecting , antepartum: (3) 37 weeks gestation of : (4) Asthma: (5) Bipolar disorder: COMMENT: ON MED PLAN: Plan NST reactive ROM plus- negative No further leaking of fluid on pad SSE- No pooling. Large amount of yellow discharge present in vaginal vault CE- 80/-3 - Able to palpate bag of water D/C home with follow up in office this week Dr. Reid aware of plan of care 10/10/23 0709 <Electronically signed by Ari duffy CNM> Date _ Ari Blum CNM Cosigner Signature (if applicable): Date CC: SHANITA Blum; Dr. Magnolia Chen MD ~ Signed [facility] Work Phone: Hospital Discharge instructions Additional Instructions Follow-up in 2 days for repeat quantitative hCG level.[facility] Work Phone: Hospital Discharge instructions Additional Instructions Tylenol for pain. Ice to your scalp. Follow-up with your [employer] as needed and scheduled. Return or follow-up with them if you develop any vaginal bleeding. The CAT scan of your abdomen and lumbar spine look good. You have good heart tones at 155. I spoke to the community recreation programmer on-call for your [employer].[facility] Work Phone: Hospital Discharge instructions Additional Instructions Plenty of fluids and rest. Increase your diet slowly as tolerated. Zofran as needed for nausea. Follow-up with your [employer] with your neck scheduled appointment. Follow-up sooner if not doing well. Return if unable to keep fluids down.[facility] Work Phone: Hospital Discharge instructionsAdditional Instructions increase macrobid to twice a day. olive picker prescription at your pharmacy.[facility] Work Phone: Reason for referral (narrative)* Diagnostic Procedure Only (Routine) - Authorized Specialty Diagnoses / Procedures Referred By Castillo ram Referred To Contact [facility][NOTE 3] Diagnoses Supervision of high risk in second trimester Maternal obesity syndrome in third trimester BMI 39.0-39.9,adult Procedures OBSTETRIC ULTRASOUND WHI US PREG UTERUS AFTER 1ST TRIMEST GESTATION Radha Rowell MD [address] [address] [facility] [employer] [place] [address] Referral ID Status Reason Start Date Expiration Date Visits Requested Visits Authorized [id number] Authorized Auto-Generat ed Referral 08/02/2023 08/01/2024 2 1 [facility] for referral (narrative)* Outpatient Procedure (Routine) - Authorized Specialty Diagnoses / Procedures Referred By Castillo t Referred To Contact [facility][NOTE 3] Diagnoses Maternal obesity syndrome in third trimester Supervision of high risk in third trimester Procedures NON-STRESS TEST NON-STRESS TEST Radha Rowell MD [address] [place] [address] [facility]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 or drug abuse patient.[facility] HospitalIn the event this information is protected by the Federal Confidentiality of Alcohol and Drug Abuse Patient Records regulations: The Federal rules restrict any use of the information to criminally investigate or prosecute any alcohol or drug abuse patient.[facility] HospitalIn the event this information is protected by the Federal Confidentiality of Alcohol and Drug Abuse Patient Records regulations: The Federal rules restrict any use of the information to criminally investigate or prosecute any alcohol or drug abuse patient.[facility] HospitalIn the event this information is protected by the Federal Confidentiality of Alcohol and Drug Abuse Patient Records regulations: The Federal rules restrict any use of the information to criminally investigate or prosecute any alcohol or drug abuse patient.[facility] HospitalIn the event this information is protected by the Federal Confidentiality of Alcohol and Drug Abuse Patient Records regulations: The Federal rules restrict any use of the information to criminally investigate or prosecute any alcohol or drug abuse patient.[facility] HospitalIn the event this information is protected by the Federal Confidentiality of Alcohol and Drug Abuse Patient Records regulations: The Federal rules restrict any use of the information to criminally investigate or prosecute any alcohol or drug abuse patient.[facility] HospitalIn the event this information is protected by the Federal Confidentiality of Alcohol and Drug Abuse Patient Records regulations: The Federal rules restrict any use of the information to criminally investigate or prosecute any alcohol or drug abuse patient.[facility] Reason for Visit (unrecogniz ed section and content) Reason Comments Diarrhea Diarrhea, vomiting, chills and MARQUEZ x 1 day Reason Comments Care Reason Comments Forms praf Reason Comments Insurance Authorization Reason Comments US Specialty Diagnoses / Procedures Referred By Contac t Referred To Contact [facility][NOTE 3] Diagnoses Supervision of other high risk pregnancies, first trimester 13 weeks gestation of Procedures OBSTETRIC ULTRASOUND WHI US PREG UTERUS AFTER 1ST TRIMEST GESTATION Radha Rowell MD [address] [place] [address] [facility] [address] [place] [address] Referral ID Status Reason Start Date Expiration Date V isits Requested Visits Authorized [id number] Closed Auto-Generate d Referral 04/30/2023 04/29/2024 1 1 Reason Onset Date Comments Care 06/27/2023 Reason Onset Date Comments Care 07/11/2023 Reason Comments Results Reason Onset Date Comments Care 07/23/2023 Reason Onset Date Comments Care 08/02/2023 Reason Comments THIRD PRAF FORM Reason Onset Date Comments Care 09/11/2023 Specialty Diagnoses / Procedures Referred By Contac t Referred To Contact [facility][NOTE 3] Diagnoses Supervision of high risk in second trimester Maternal obesity syndrome in third trimester BMI 39.0-39.9,adult Procedures OBSTETRIC ULTRASOUND WHI US PREG UTERUS AFTER 1ST TRIMEST GESTATION Radha Rowell MD [address] [place] [address] [facility] [address] [place] [address] Referral ID Status Reason Start Date Expiration Date V isits Requested Visits Authorized [id number] Closed Auto-Generate d Referral 08/02/2023 08/01/2024 2 1 Reason Onset Date Comments Care 09/23/2023 Reason Comments breast pump Reason Onset Date Comments Care 10/01/2023 Specialty Diagnoses / Procedures Referred By Contac t Referred To Contact [facility][NOTE 3] Diagnoses Maternal obesity syndrome in third trimester Supervision of high risk in third trimester Procedures NON-STRESS TEST NON-STRESS TEST Radha Rowell MD [address] 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 [address] Phone: tel: fax: [address] [address] Referral ID Status Reason Start Date Expiration Date V isits Requested Visits Authorized [id number] Closed Auto-Generate d Referral 01/21/2025 01/21/2026 1 1 Reason Onset Date Comments Care 02/16/2025 Reason Onset Date Comments Care 04/08/2025 Specialty Diagnoses / Procedures Referred By Castillo ram Referred To Contact [facility][NOTE 3] Diagnoses with uncertain dates in first trimester (HCC) Encounter for supervision of high risk in first trimester, antepartum (HCC) Obesity affecting in first trimester, unspecified obesity type (HCC) History of miscarriage Depression affecting (HCC) Family history of defect Procedures OBSTETRIC ULTRASOUND WHI US PREG UTERUS AFTER 1ST TRIMEST GESTATION Jduit Pimentel APRN.CNP [address] [address] Phone: tel: fax: [address] [address] Referral ID Status Reason Start Date Expiration Date V isits Requested Visits Authorized [id number] Closed Auto-Generate d Referral 01/21/2025 01/21/2026 1 1 Reason Onset Date Comments Care 04/14/2025 Reason Comments Thyroid Problem Specialty Diagnoses / Procedures Referred By Contac t Referred To Contact Endocrinology Diagnoses Elevated TSH 24 weeks gestation of (HCC) Procedures CONSULT TO ENDOCRINOLOGY OFFICE/OUTPATIENT [facility] 60 MINUTES Judit Pimentel APRN.DROSSER [address] [place] [address] Phone: tel: fax: Referral ID Status Reason Start Date Expiration Date V isits Requested Visits Authorized [id number] Closed PCP Requested Referral 05/07/2025 05/07/2026 1 1 Reason Onset Date Comments Care 06/03/2025 Reason Comments PRAF Reason Onset Date Comments Care 06/16/2025 Reason Onset Date Comments Care 06/21/2025 Reason Onset Date Comments Care 07/02/2025 Specialty Diagnoses / Procedures Referred By Contac t Referred To Contact [facility][NOTE 3] Diagnoses Obesity affecting in third trimester, unspecified obesity type (HCC) Procedures OBSTETRIC ULTRASOUND WHI US PREG UTERUS AFTER 1ST TRIMEST GESTATION Amberly Sanchez MD [address] [place] [address] Phone: tel: fax: [address] [phone] Referral ID Status Reason Start Date Expiration Date V isits Requested Visits Authorized [id number] Closed Auto-Generate d Referral 06/03/2025 06/03/2026 1 1 Reason Onset Date Comments Care 07/13/2025 Reason Onset Date Comments Care 07/20/2025 Care Teams (unrecognized sec tion and content) Team Status: Active Member Role Status Dates Dr. Shivani Rowell MD Family Provider Active Dr. Magnolia Chen MD Primary Care Provider Active Team Status: Active Member Role Status Dates Dr. Magnolia Chen MD Primary Care Provider, Referri ng Provider Active Dr. Antelmo Alegre MD Attending Provider, Other Provi mark Active Team Status: Inactive Member Role Status Dates Dr. Magnolia Chen MD Primary Care Provider, Referri ng Provider Active Dr. Antelmo Alegre MD Attending Provider Active Team Status: Inactive Member Role Status Dates Dr. Magnolia Chen MD Primary Care Provider Active Dr. Emmanuel Corona DO Attending Provider, Emergency Pro vider Active Team Status: Inactive Member Role Status Dates Dr. Magnolia Chen MD Primary Care Provider Active Dr. Emmanuel Corona DO Emergency Provider Active Team Status: Inactive Member Role Status Dates Dr. Magnolia Chen MD Primary Care Provider Active Dr. Roula Corona DO Attending Provider Active Team Status: Inactive Member Role Status Dates Dr. Magnolia Chen MD Primary Care Provider Active Judit Pimentel NP-C Attending Provider Active Team Status: Inactive Member Role Status Dates Dr. Magnolia Chen MD Primary Care Provider Active Dr. Tex Estrada DO Emergency Provider Active Team Status: Inactive Member Role Status Dates Dr. Magnolia Chen MD Primary Care Provider, Referri ng Provider Active Yuliya Jackson NP, MACHINIST [employer]-C Attending Provider Active Team Status: Inactive Member Role Status Dates Dr. Magnolia Chen MD Primary Care Provider Active Dr. Tex Estrada DO Attending Provider, Emergency P rovider Active Team Status: Inactive Member Role Status Dates Dr. Magnolia Chen MD Primary Care Provider Active Dr. Mustapha Serrato MD Emergency Provider Active Team Status: Inactive Member Role Status Dates Dr. Magnolia Chen MD Primary Care Provider Active Dr. Mustapha Serrato MD Attending Provider, Emergency Pro vider Active Team Status: Inactive Member Role Status Dates Dr. Magnolia Chen MD Primary Care Provider Active Dr. Tom Oshea MD Attending Provider, R eferring Provider Active Team Status: Inactive Member Role Status Dates Dr. Magnolia Chen MD Primary Care Provider Active Dr. Radha Rowell MD Attending Provider Active Team Status: Inactive Member Role Status Dates Dr. Magnolia Chen MD Primary Care Provider Active Ari Blum CNM Attending Provider Active Team Status: Inactive Member Role Status Dates Dr. Magnolia Chen MD Primary Care Provider Active Ari Blum CNM Attending Provider, Referring Pr ovider Active Team Status: Inactive Member Role Status Dates Dr. Magnolia Chen MD Primary Care Provider Active Nighat Maloney CNM Admit Provider, Atte nding Provider, Referring Provider Active Team Status: Active Member Role/Relationship Status Dates Dr. Shivani Rowell MD Family Provider Active Nighat Munoz VSC, MACHINIST [employer] Primary Care Provider Activ e Team Status: Inactive Member Role/Relationship Status Dates Nighat GUAJARDO, MACHINIST [employer] Primary Care Provider Activ e Start: June 21, 2025 End: June 22, 2025 Ari Blum CNM Attending Provider Active Start: June 21, 2025 End: June 22, 2025 Ari Blum CNM Referring Provider Active Start: June 21, 2025 End: June 22, 2025 FOR RECORDS PERTAINING TO PATIENTS WHO ARE OR HAVE BEEN ENROLLED IN A CHEMICAL DEPENDENCY/SUBSTANCEABUSE PROGRAM, SOME INFORMATION MAY BE OMITTED. This clinical summary was aggregated from multiple sources. Caution should be exercised in using it in the provision of clinical care. This summary normalizes information from multiple sources, and as a consequence, information in this document may materially change the coding, format and clinical context of patient data. In addition, data may be omitted in some cases. CLINICAL DECISIONS SHOULD BE BASED ON THE PRIMARY CLINICAL RECORDS. [facility] [employer] provides no warranty or guarantee of the accuracy or completeness of information in this document.
[2025-07-22 03:03] VITALS: BP 142/70; PULSE 87; PULSE 88; RESP 16; TEMP 36.3; O2SAT 98
[2025-07-22 03:07] VITALS: BMI 41.1
[2025-07-22 03:25] VITALS: BP 140/65; PULSE 83
[2025-07-22 03:41] VITALS: BP 139/67; PULSE 83
[2025-07-22 03:43] LABS: ROM Internal Control Test YES-OK TO RESULT pt. (Internal QC); ROM Patient Test Negative (Negative); Record Kit Lot#, ROM+ K3358
--- NOTE | 2025-07-22 05:56 | OB.TRI.NOTE ---
HPI - General HPI Narrative LOW PRETTY, is a 29 F who presents to triage to rule out rupture of membranes. Maternal Data Information CLAUDIO Calculator Estimated Delivery Date Method Current WG Current Estimate 08/22/25 Manual 35w 4d PFSH PFSH Medical History Lactating mother Vaginal delivery Positive GBS test History of depression Short interval between pregnancies affecting in third trimester, antepartum Obesity UTI in SROM (spontaneous rupture of membranes) 37 weeks gestation of MRSA infection Trauma Thyroid disorder Liver disease depression Wears glasses Fatty liver Heartburn Gastric reflux Former smoker PCOS (polycystic ovarian syndrome) Injury of head and neck Migraines Cholecystitis with cholelithiasis Chest pain Spontaneous vaginal delivery Elective induction of labor planned Marginal placenta previa Asthma Bipolar disorder Anxiety Depression Home Medications ?Medication ?Instructions ?Recorded ?Last Taken ?Type albuterol 90 mcg/actuation aerosol 90 mcg inhalation Q6H PRN PRN 10/10/23 06/19/25 History inhaler asthma acetaminophen 500 mg tablet 1,000 mg (2 x 500 mg) PO Q6H PRN 10/17/23 06/20/25 Rx PRN Pain 1-10 Or Fever #0 tabs ferrous sulfate 325 mg (65 mg 325 mg PO DAILY 06/21/25 07/21/25 History iron) tablet (Feosol) levothyroxine 125 mcg tablet 125 mcg PO DAILY 06/21/25 07/21/25 History (Synthroid) nitrofurantoin 100 mg PO DAILY 06/21/25 07/21/25 History monohydrate/macrocrystals 100 mg capsule (Macrobid) aspirin 81 mg tablet,delayed 81 mg PO DAILY 07/22/25 07/21/25 History release (Adult Low Dose Aspirin) Allergy/AdvReac Type Severity Reaction Status Date / Time aripiprazole Allergy Hives Verified 07/22/25 03:05 Family History Father Anxiety Depression Mental disorder Suicide attempt Grandfather Cancer lung Grandmother Myocardial infarction CVA (cerebral vascular accident) Surgical History History of cholecystectomy Hx of tonsillectomy History of surgery Social History household members: family housing: house current occupational status: employed current occupation: [employer] sexually active: Yes Smoking Status: Current every day smoker tobacco type: e-cigarettes Electronic Cigarette Use: not used alcohol intake: current alcohol intake frequency: holidays/special occasions only substance use type: does not use what type of physical activity do you participate in: walking frequency: 5-6 times per week seatbelt use: always do you feel safe at home: Yes History 1 Elective abortions Hx Para 1 Spontaneous abortions Hx # Term Pregnancies Ectopic pregnancies Hx # Pregnancies Multiple births # of living children 1 ROS Eyes Eyes: Denies blurry vision Cardiovascular Cardiovascular: Reports none; Denies chest pain at rest, chest pain with activity or dizziness Respiratory/Chest Respiratory/Chest: Denies cough or dyspnea Gastrointestinal Gastrointestinal: Reports none and other; Denies diarrhea or vomiting Genitourinary Genitourinary: Denies dysuria Musculoskeletal Musculoskeletal: Reports none Integumentary Integumentary: Reports none; Denies rash Neurologic Neurologic: Denies dizziness, headache(s) or other visual disturbances Psychiatric Psychiatric: Reports none Physical Exam Const alert and no apparent distress General Appearance: cooperative Orientation / Consciousness: awake Exam Limitations: no limitations HEENT normocephalic Eyes General Eye: normal appearance of both eyes Neck full ROM Chest inspection of chest normal Resp normal respiratory effort and normal air movement Effort and Inspection: symmetric chest movement Auscultation: clear to auscultation bilaterally Cardio regular rate GI soft to palpation, non-tender and non-distended Inspection: and other Back/Spine normal ROM Extremity full ROM, normal capillary refill and no calf tenderness Skin no rashes or lesions noted Neuro oriented x3 and CN's II-XII intact bilaterally Psych mental status grossly normal NST FHR Rate Baby A Baseline: 130 Variability:: Moderate Accelerations:: 15 x 15 Decelerations:: None NST Reactive:: Yes FHR Category:: Category I Uterine Activity:: none Assessment & Plan (1) 35 weeks gestation of : (2) Bipolar disorder: COMMENT: ON MED (3) Asthma: PLAN: Plan ROM negative No contractions NST reactive D/C home with follow up in office
== END 2025-07-22 03:57 | disposition home or self-care (01) ==
LOC: WPOUT 02:48 → WP 02:48
PROVIDERS: PCP Nurse Practitioner Family; Visit Provider Advanced Practice Midwife
DX: O47.03 False labor before 37 completed weeks of gestation, third trimester (principal); F31.9 Bipolar disorder, unspecified; O99.333 Smoking (tobacco) complicating pregnancy, third trimester; F17.290 Nicotine dependence, other tobacco product, uncomplicated; O99.343 Other mental disorders complicating pregnancy, third trimester; Z79.899 Other long term (current) drug therapy; Z3A.35 35 weeks gestation of pregnancy
CPT/HCPCS: 59025; 84112

== ENCOUNTER 2025-07-30 00:45 | Outpatient (CLI) | payer OTHER, MEDICAID, SELFPAY ==
--- OUTSIDE RECORDS SUMMARY | 2025-07-30 00:53 | XMS RPT_ITS | CCD ---
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 Name Role Phone Shivani Rowell Unavailable Unavailable [place], Carine A Unavailable Unavailable [place], Carine A Unavailable Unavailable SORIN SHIVANI A Unavailable Unavailable REFERRED, SELF Unavailable Unavailable SHIVANI ROWELL Unavailable Unavailable Suhas Bojorquez Unavailable Unavailable Suhas Bojorquez Unavailable Unavailable BLOSSOM CLEMENTS Admitting Unavailable BLOSSOM CLEMENTS Primary Care Unavailable BLOSSOM CLEMENTS Attending Unavailable LUZ MARIA CANCINO Admitting Unavailable LUZ MARIA CANCINO Primary Care Unavailable LUZ MARIA CANCINO Consulting Unavailable LUZ MARIA CANCINO Attending Unavailable PROVIDER, UNKNOWN Consulting Unavailable [...] Un available Dr. Magnolia Chen Attending Provider Dr. Magnolia Chen Primary Care Provider Dr. Magnolia Chen Referring Provider [phone] Unavailable Primary Care Provider UnavailDr. Magnolia López Primary Care Provider Dr. Magnolia Chen Referring Provider [phone] Dr. Antelmo Alegre Attending Provider [phone] Antelmo Alegre Other Provider Dr. Magnolia Chen Primary Care Provider Dr. Magnolia Chen Referring Provider [phone] Manuel [employer], [employer] Yuliya Attending Provider [phone] Unavailable Primary Care Provider Unavailabl e PROCHARO TAMMIE Admitting Unavailable PROMAYURIFIT TAMMIE Attending Unavailable RADHA CAMPBELL Admitting Unavailable EDOUARD ANDUJAR Attending Unavailable Alexander [employer], Nighat Primary Care Provider Bettie Blum CNM Attending Provider Bettie Blum CNM Referring Provider Alexander VSCNighat Attending Unavailabl e Alexander VSC, Nighat Primary Care Unavailabl e Nighat Lo Attending Unavailabl e Alexander VSC, Nighat Primary Care Unavailabl e Darion Vega Attending Unavailable Magnolia Chen Primary Care Unavailable Alexander VSC, Nighat Primary Care Unavailabl e Bettie Blum Referring Unavailable Bettie Blum Attending Unavailable Alexander VSC, Nighat Primary Care Unavailabl e Bettie Blum Attending Unavailable SARKIS, NIGHAT Referring Unavailable MALONEY NIGHAT Attending Unavailable HAURY, JUDIT Referring Unavailable HAURY, JUDTI Referring Unavailable HAURY, JUDIT Attending Unavailable EPIFANIO SANCHEZ Attending Unavailable KAYLA VAZ Referring Unavail able HARRIET MALLORY Referring Unavailable EPIFANIO SANCHEZ Attending Unavailable HAURY, JUDIT Referring Unavailable MALLORYHARRIET FELICIANO Attending Unavailable HAURY, JUDIT Referring Unavailable HAURY, JUDIT Attending Unavailable HAURY, JUDIT Referring Unavailable KAYLA VAZ Attending Unavail able KAYLA VAZ Referring Unavail able FUNMILAYO BERNARDO Attending Unavailable NEYHART REID, KAYLA Referring Unavail able BETTIE BLUM Attending Unavailable HAURY, JUDIT Attending Unavailable NOAM WYMAN Attending Unavailable EPIFANIO SANCHEZ Referring Unavailable WISNOAM TOUSSAINT Attending Unavailable DANIEL, KARSHARRON Referring Unavailable HAURY, JUDIT Referring Unavailable NEYHART REID, KAYLA Referring Unavail able ROXANNE ROWELL Attending Unavailable NEYHART REID, KAYLA Referring Unavail able NEYHART REID, KAYLA Referring Unavail able EPIFANIO SANCHEZ Attending Unavailable NEYHART REID, KAYLA Referring Unavail able NEYHART REID, KAYLA Referring Unavail able NIGHAT MALONEY Attending Unavailable HAURY, JUDIT Referring Unavailable MALONEY NIGHAT Attending Unavailable HAURY, JUDIT Referring Unavailable Allergies Allergy Classification Reported Allergen(s) Allergy Type Date of Onset Reaction(s) Facility (20 sources) ARIPiprazole; Translations: [ARIPiprazole] Drug Allergy 03-05-[address] [facility] Repository Comment on above: THAT SHE CAN [...] 04/22/2017 01/21/2025 Discontinued Albuterol 90 mcg/actuation aerosol (2 sources) Start: 10-10-2023 take 90 ug by inhalation every six hours as needed Albuterol 90 mcg/actuation aerosol Active 90 ug INHALATION EVERY 6 HOURS NEEDED as needed for asthma October 10, 2023 1:00am aspirin 81 mg delayed release oral tablet (20 sources) Platelet Aggregation Inhibitor, Nonsteroidal Anti-inflammatory Drug Start: 01-21-2025 Aspirin (Adult Low Dose Aspirin) 81 mg tablet,delayed release (DR/EC) Active 81 mg PO DAILY July 22, 2025 12:00am cholecalciferol 0.125 mg oral capsule (20 sources) Vitamin D Start: 12-17-2024 Cholecalciferol, Vitamin D3, 125 mcg (5,000 unit) cap 5,000 Units once daily. 12/17/2024 Active dicyclomine hydrochloride 20 mg oral tablet (7 sources) Anticholinergic Start: 10-21-2022 take 20 mg by mouth three times daily Dicyclomine Active 20 MG PO THREE TIMES A DAY October 21, 2022 10:21pm ferrous sulfate 325 mg oral tablet (17 sources) Start: 06-21-2025 take 1 tablet by mouth once daily Ferrous Sulfate (Feosol) 325 mg (65 mg iron) tablet Active 325 mg PO DAILY June 21, 2025 12:00am Start: 05-06-2025 take 1 tablet by tray th every other day ferrous sulfate (IRON) 325 mg (65 mg iron) tablet Indications: Anemia complicating , second trimester (HCC) Take 1 tablet by mouth every other day. 60 tablet 2 05/06/2025 Active lansoprazole 30 mg delayed release oral capsule (5 sources) Proton Pump Inhibitor Start: 11-08-2022 take 1 capsule by mouth once daily Lansoprazole (Prevacid) 30 mg capsule,delayed release(DR/EC) Active 30 MG PO DAILY November 08, 2022 1:00am levothyroxine sodium 0.15 mg oral tablet (20 sources) l-Thyroxine Start: 07-26-2025 take 1 tablet by mouth once daily levothyroxine (SYNTHROID) 150 mcg tablet Take 1 tablet by mouth once daily. 90 tablet 3 07/26/2025 Active Start: 05-17-2025 take 1 tablet by tray th once daily Levothyroxine (Synthroid) 125 mcg tablet Active 125 ug PO DAILY June 21, 2025 12:00am Start: 04-29-2025 End: 05-17-2025 take 1 tablet [...] Start: 06-21-2025 take 1 capsule by mo [facility] once daily Nitrofurantoin Monohyd/M-Cryst (Macrobid) 100 mg [...] on above: Take 1 capsule by mo [facility] twice daily for 7 days. Take 1 capsule by mo [facility] two times a day for 10 days. Take 1 capsule by mo [facility] once daily. oxyCODONE hydrochloride 5 mg oral tablet (19 sources) Opioid Agonist Start: End: take 1 [...] of gallbladder with chronic cholecystitis without obstruction Avkmwmol-Vrv-Sj-Fa (1 source) Start: 05-04-2023 take 1 tablet by mouth once daily Lmehlmif-Yxs-Cg-Fa Active 1 TABLET PO DAILY May 03, 2023 11:00pm Hprvsnsg-Anr-Ua-Fa () 1 mg Tablet (5 sources) Start: 05-04-2023 take 1 tablet by mouth once daily Igpyuyxy-Ebj-Mn-Fa () 1 mg Tablet Active 1 TABLET PO DAILY May 03, 2023 11:00pm Start: 05-04-2023 take 1 tablet by [facility] once daily Lvqjsmrs-Sbh-Nu-Fa () 1 mg Tablet Active 1 TABLET [...] mg / trimethoprim 160 mg oral tablet (11 sources) Dihydrofolate Reductase Inhibitor Antibacterial, Sulfonamide Antimicrobial [...] on above: Take 1 capsule by mo [facility] three times daily as needed. ibuprofen 600 mg oral tablet (3 sources) Nonsteroidal Anti-inflammatory Drug Start: 10-17-2023 End: [...] Comment on above: Take 1 capsule by [facility] once daily. ondansetron 4 mg disintegrating [...] HOURS as needed for nausea and vomiting 10 June 03, 2023 12:00am August 17, 2023 6:51pm phenazopyridine hydrochloride 200 mg oral tablet (2 sources) Start: 11-30-2024 End: 06-21-2025 take 1 tablet by mouth three times daily Phenazopyridine (Pyridium) 200 mg tablet Discontinued 200 mg PO THREE TIMES A DAY November 30, 2024 1:00am June 21, 2025 6:51pm PNV Comb No.01-Qvpp-Fvkya Acid (PRENATABS FA) 29-1 mg tab (20 sources) Start: 08-20-2021 End: 11-30-2024 PNV Comb No.63-Gvwe-Ggadu Acid (PRENATABS FA) 29-1 mg tab Take by mouth. 08/20/2021 11/30/2024 Discontinued Start: 08-20-2021 PNV Comb No.78 -Iron-Folic Acid (PRENATABS FA) 29-1 mg tab Take by mouth. 08/20/2021 Active Start: 08-20-2021 PNV Comb No.78 -Iron-Folic Acid (PRENATABS FA) 29-1 mg tab Take by mouth. 0 08/20/2021 Active Comment on above: Take by mouth. polyethylene glycol 3350 57434 mg powder for oral solution (5 sources) Osmotic Laxative Start: 04-29-20 25 End: 06-03-20 25 polyethylene glycol 3350 17 gram packet Take 1 packet by mouth once daily. Dissolve dose in 4 - 8 ounces of liquid and take as directed. 24 packet 04/29/2025 06/03/2025 Discontinued (Other) Pugozawd-Fxh-No-Fa 1 mg Tablet (2 sources) Start: 05-04-20 End: 11-30-20 take 1 tablet by mouth once daily Lmjagjre-Yej-Cb-Fa 1 mg Tablet Discontinued 1 {tbl} PO [...] Active Problems Problem Classification Problem Date Documented Da te Episodic/Chronic Administrative/social admission (20 sources) Patient encounter status; Translations: [Persons encountering health services in other specified circumstances] Episodic Allergic reactions (1 source) Allergic reaction; Translations: [Allergy, unspecified, initial encounter] 08-18-2024 Episodic Anxiety disorders (20 sources) Anxiety disorder, unspecified; Translations: [Anxiety state, unspecified] Onset: 01-21-2025 Chronic Asthma (10 sources) Unspecified asthma, uncomplicated; Translations: [Asthma] Onset: 03-12-2021 10-10-2023 Chronic Bacterial infection; unspecified site (4 sources) Bacteria present; Translations: [Streptococcus, group B, as the cause of diseases classified elsewhere] 10-15-2023 Episodic Biliary tract disease (20 sources) Biliary calculus; Translations: [Calculus of gallbladder with chronic cholecystitis without obstruction] Episodic Calculus of urinary tract (2 sources) Kidney stone; Translations: [Calculus of kidney] 12-08-2024 Episodic Diabetes mellitus without complication (14 sources) Abnormal glucose tolerance test; Translations: [Other abnormal glucose] Onset: 06-03-2025 06-03-2025 Episodic E Codes: Fall (8 sources) Fall; Translations: [Unspecified fall, initial encounter] 05-04-2023 Episodic Early or threatened labor (20 sources) False labor; Translations: [False labor, unspecified] Episodic Gastrointestinal hemorrhage (13 sources) Hematemesis; Translations: [Hematemesis] 11-16-2022 Episodic Gout and other crystal arthropathies (10 sources) Acute gout; Translations: [Gout, unspecified] 04-14-2023 Chronic Hemorrhage during ; abruptio placenta; placenta previa (20 sources) Threatened miscarriage; Translations: [Threatened ] Episodic Immunizations and screening for infectious disease (1 source) Vaccination needed; Translations: [Encounter for immunization] 08-02-2023 Episodic Mood disorders (9 sources) Bipolar disorder; Translations: [Bipolar disorder, unspecified] Onset: 06-22-2025 10-10-2023 Chronic Comment on above: ON MED Mood disorders (1 source) Mood disorders; Translations: [Depression affecting ] Onset: 02-16-2025 Nausea and vomiting (20 sources) Nausea and vomiting; Translations: [Nausea with vomiting, unspecified] 10-29-2022 Episodic Noninfectious gastroenteritis (1 source) Gastroenteritis; Translations: [Noninfective gastroenteritis and colitis, unspecified] Episodic Nutritional deficiencies (4 sources) Vitamin D deficiency, unspecified; Translations: [Unspecified vitamin D deficiency] Chronic Other complications of (20 sources) Maternal obesity complicating , childbirth and the puerperium, antepartum; Translations: [Obesity complicating , unspecified trimester] Onset: 03-25-2023 03-25-2023 Chronic Other complications of (7 sources) Obesity complicating , third trimester; Translations: [Obesity complicating , childbirth, or the puerperium, antepartum condition or complication] Onset: 06-03-2025 08-02-2023 Chronic Other complications of (20 sources) Anemia in mother complicating , childbirth AND/OR puerperium; Translations: [Anemia complicating , second trimester] Onset: 05-06-2025 05-06-2025 Chronic Other complications of (1 source) Anemia complicating , third trimester; Translations: [Anemia complicating , third trimester (HCC)] Onset: 06-03-2025 Chronic Other complications of (1 source) Obesity complicating , second trimester; Translations: [Obesity affecting in second trimester, unspecified obesity type (HCC)] Onset: 04-24-2025 Chronic Other complications of (1 source) Anemia complicating , second trimester; Translations: [Anemia complicating , second trimester (HCC)] Onset: 05-06-2025 Chronic Other complications of (2 sources) Obesity complicating , first trimester; Translations: [Obesity affecting in first trimester, unspecified obesity type (HCC)] Onset: 01-21-2025 Chronic Other complications of (20 sources) Headache; Translations: [Other specified related conditions, unspecified trimester] 2022 Episodic Other complications of (11 sources) Other specified related conditions, unspecified trimester; Translations: [Other specified complications of , unspecified as to episode of care or not applicable] Onset: 06-22-2025 Episodic Other complications of (1 source) ; Translations: [ with inconclusive viability, not applicable or unspecified] Episodic Other complications of (20 sources) High risk ; Translations: [Supervision of other high risk pregnancies, first trimester] Onset: 03-25-2023 Episodic Other complications of (1 source) Cramp [...] second trimester] 07-11-2023 Episodic Other complications of (8 sources) Uterine contractions problem; Translations: [Other specified [...] episode of care or not applicable] Onset: 06-22-2025 10-17-2023 Episodic Other complications of (3 sources) Depressive disorder in mother complicating ; Translations: [Other mental disorders complicating , unspecified trimester] 01-21-2025 Episodic Other complications of (6 sources) Anxiety in ; Translations: [Other mental disorders complicating , unspecified trimester] Onset: 01-21-2025 01-21-2025 Episodic Other complications of (1 source) Infections of kidney in , second trimester; Translations: [Pyelonephritis affecting in second trimester (HCC)] Onset: 04-26-2025 Episodic Other complications of (2 sources) Infections of kidney in , unspecified trimester; Translations: [Pyelonephritis complicating , antepartum (HCC)] Onset: 04-09-2025 Episodic Other complications of (18 sources) Pruritus of ; Translations: [Diseases of the skin and subcutaneous tissue complicating , second trimester] Onset: 05-06-2025 05-06-2025 Episodic Other complications of (2 sources) Reduced movement; Translations: [Decreased movements, third trimester, not applicable or unspecified] 06-16-2025 Episodic Other complications of (1 source) Supervision of high risk , unspecified, third trimester; Translations: [Supervision of high risk in third trimester (HCC)] Onset: 06-16-2025 Episodic Other complications of (1 source) Decreased movements, third trimester, not applicable or unspecified; Translations: [Decreased movements in third trimester, single or unspecified fetus ([facility])] Onset: 06-16-2025 Episodic Other complications of (3 sources) Supervision of high risk , unspecified, second trimester; Translations: [Encounter for supervision of high risk in second trimester, antepartum ([facility])] Onset: 02-16-2025 Episodic Other complications of (1 source) Endocrine, nutritional and metabolic diseases complicating , second trimester; Translations: [Hypothyroidism affecting in second trimester ([facility])] Onset: 05-17-2025 Episodic Other complications of (1 source) Diseases of the skin and subcutaneous tissue complicating , second trimester; Translations: [Pruritus of in second trimester ([facility])] Onset: 05-06-2025 Episodic Other connective tissue disease (4 sources) Other symptoms and signs involving the nervous system; Translations: [Other symptoms involving nervous and musculoskeletal systems] Episodic Other endocrine disorders (1 source) Polycystic ovarian syndrome; Translations: [Polycystic ovarian syndrome] Onset: 03-12-2021 Chronic Other endocrine disorders (20 sources) Polycystic [...] genital tract] 12-23-2024 Episodic Other gastrointestinal disorders (13 sources) Diarrhea; Translations: [Diarrhea, unspecified] 11-02-2022 Episodic Other gastrointestinal disorders (2 sources) Diarrhea, unspecified; Translations: [Diarrhea] Episodic Other inflammatory condition of skin (2 sources) Pruritus, unspecified; Translations: [Unspecified pruritic disorder] Onset: 05-06-2025 07-11-2023 Episodic Other inflammatory condition of skin (1 source) Generalized pruritus ; Translations: [Pruritus, unspecified] 07-23-2023 Episodic Other injuries and conditions due to external causes (8 sources) Closed injury of head; Translations: [Unspecified [...] Chronic Other nutritional; endocrine; and metabolic disorders (3 sources) Obesity; Translations: [Obesity, unspecified] 10-15-2023 Chronic Other nutritional; endocrine; and metabolic disorders (1 source) Obesity, unspecified; Translations: [Obesity, unspecified] 10-17-2023 Chronic Other screening for suspected conditions (not mental disorders or infectious disease) (16 sources) No liquor observed vaginally ; Translations: [Encounter for suspected problem with amniotic cavity and membrane ruled out] Onset: 01-05-2025 09-22-2023 Episodic Other upper respiratory infections (2 sources) Acute upper respiratory infection; Translations: [Acute upper respiratory infection, unspecified] 03-25-2024 Episodic Personality disorders (20 sources) Borderline personality disorder; Translations: [Borderline personality disorder] Onset: 01-21-2025 01-21-2025 Chronic Polyhydramnios and other problems of [...] of ] 07-11-2023 Episodic Residual codes; unclassified (7 sources) Gestation period, 25 weeks; Translations: [25 [...] of ] 09-11-2023 Episodic Residual codes; unclassified (5 sources) Gestation period, 29 weeks; Translations: [29 weeks gestation of ] 08-18-2023 Episodic Residual codes; unclassified (3 sources) 29 weeks gestation of ; Translations: [ state, incidental] 08-17-2023 Episodic Residual codes; unclassified (6 sources) Gestation period, 34 weeks; Translations: [34 weeks gestation of ] 09-23-2023 Episodic Residual codes; unclassified (1 source) Gestation period, 35 weeks; Translations: [35 weeks gestation of ] 10-01-2023 Episodic Residual codes; unclassified (3 sources) Gestation period, 36 weeks; Translations: [36 weeks gestation of ] 10-04-2023 Episodic Residual codes; unclassified (4 sources) Gestation period, 37 weeks; Translations: [37 weeks gestation of ] 10-10-2023 Episodic Residual codes; unclassified (3 sources) 34 weeks gestation of ; Translations: [ state, incidental] Onset: 07-13-2025 09-22-2023 Episodic Residual codes; unclassified (3 sources) [...] [23 weeks gestation of ] Onset: 04-25-2025 04-25-2025 Episodic Residual codes; unclassified (1 source) Gestation period, 28 weeks; Translations: [28 weeks gestation of ] 06-03-2025 Episodic Residual codes; unclassified (1 source) Gestation period, 30 weeks; Translations: [30 weeks gestation of ] 06-16-2025 Episodic Residual codes; unclassified (5 sources) Gestation period, 31 weeks; Translations: [31 weeks gestation of ] 06-21-2025 Episodic Residual codes; unclassified (3 sources) Gestation period, 32 weeks; Translations: [32 weeks gestation of ] 07-02-2025 Episodic Residual codes; unclassified (2 sources) 31 weeks gestation of ; Translations: [31 weeks gestation of ] Onset: 06-21-2025 Episodic Residual codes; unclassified (1 source) 36 weeks gestation of ; Translations: [36 weeks gestation of (HCC)] Onset: 07-27-2025 Episodic Residual codes; unclassified (1 source) 24 weeks gestation of ; Translations: [24 weeks gestation of (HCC)] Onset: 07-20-2025 Episodic Residual codes; unclassified (1 source) 33 weeks gestation of ; Translations: [33 weeks gestation of (HCC)] Onset: 07-06-2025 Episodic Residual codes; unclassified (1 source) 32 weeks gestation of ; Translations: [32 weeks gestation of (HCC)] Onset: 07-02-2025 Episodic Residual codes; unclassified (1 source) 30 weeks gestation of ; Translations: [30 weeks gestation of (HCC)] Onset: 06-16-2025 Episodic Residual codes; unclassified (1 source) 28 weeks gestation of ; Translations: [28 weeks gestation of (HCC)] Onset: 06-03-2025 Episodic Substance-related disorders (19 sources) Nicotine dependence, cigarettes, uncomplicated; Translations: [Nicotine dependence, unspecified, uncomplicated] Onset: 03-12-2021 04-25-2025 Chronic Superficial injury; contusion (8 sources) Contusion of trunk; Translations: [Contusion of abdominal wall, initial encounter] 05-04-2023 Episodic Thyroid disorders (3 sources) Hypothyroidism, unspecified; Translations: [Hypothyroidism affecting in second trimester (HCC)] Onset: 01-21-2025 Chronic Unclassified (2 sources) Spontaneous rupture of membranes; Translations: [Spontaneous rupture of amniotic membranes] 10-15-2023 Unclassified (20 sources) [facility] - [facility]ON Onset: 01-21-2025 01-21-2025 Unclassified (20 sources) Education - [place] Onset: 01-21-2025 01-21-2025 Unclassified (1 source) Care Onset: 07-20-2025 Past or Other Problems Problem Classification Problem Date Documented Date [...] are reassuring against a postoperative bile leak. Conditions associated with dizziness or vertigo (20 sources) Dizziness; Translations: [Dizziness and giddiness] Onset: 5 Resolved: 5 11-30-2024 Episodic Genitourinary symptoms and ill-defined conditions (10 sources) Dysuria; Translations: [Dysuria] Onset: Episodic Other circulatory disease (19 sources) Elevated blood-pressure reading without diagnosis of hypertension; Translations: [Elevated blood-pressure reading, without diagnosis of hypertension] Onset: 5 04-10-2025 Episodic Other complications of (20 sources) Dysuria; Translations: [Other specified related conditions, unspecified trimester] Onset: 3 Resolved: 5 03-25-2023 Episodic Other complications of (20 sources) Finding of pattern of ; Translations: [Supervision of other high risk pregnancies, unspecified trimester] Onset: 3 03-25-2023 Episodic Other complications of (20 sources) Urinary tract infection in ; Translations: [Unspecified infection of urinary tract in , third trimester] Onset: 5 09-23-2023 Episodic Other complications of (11 sources) Group B Streptococcus carrier; Translations: [Streptococcus B carrier state complicating ] Onset: 3 10-03-2023 Episodic Other complications of (20 sources) Hypothyroidism in ; Translations: [Endocrine, nutritional and metabolic diseases complicating , first trimester] Onset: 5 01-21-2025 Episodic Other complications of (20 sources) Vomiting of , unspecified; Translations: [Unspecified vomiting of , unspecified as to episode of care or not applicable] Onset: 5 Resolved: 5 01-21-2025 Episodic Other complications of (20 sources) Rubella non-immune; Translations: [Supervision of other high risk pregnancies, unspecified trimester] Onset: 5 03-16-2025 Episodic Other complications of (20 sources) Other mental disorders complicating , unspecified trimester; Translations: [Mental disorders of mother, antepartum condition or complication] Onset: 5 03-16-2025 Episodic Other complications of (20 sources) Pyelonephritis in ; Translations: [Infections of kidney in , unspecified trimester] Onset: 5 04-14-2025 Episodic Other complications of (18 sources) Back pain complicating ; Translations: [Back pain affecting ] Onset: 5 04-26-2025 Episodic Other complications of (2 sources) Supervision of high risk , unspecified, first trimester; Translations: [Encounter for supervision of high risk in first trimester, antepartum (HCC)] Onset: Episodic Other complications of (2 sources) Endocrine, nutritional and metabolic diseases complicating , first trimester; Translations: [Hypothyroidism affecting in first trimester (HCC)] Onset: Episodic Other gastrointestinal disorders (20 sources) H/O: liver disease; Translations: [Personal history of other diseases of the digestive system] Onset: 3 03-25-2023 Episodic Other injuries and conditions due to external causes (20 sources) H/O: injury; Translations: [Personal history of other (healed) physical injury and trauma] Onset: 5 01-21-2025 Episodic Other and delivery including normal (20 sources) First trimester ; Translations: [Encounter for supervision of normal , unspecified, first trimester] Onset: Episodic Residual codes; unclassified (20 sources) H/O: depression; Translations: [Personal history of other complications of , childbirth and the puerperium] Onset: 3 03-25-2023 Episodic Residual codes; unclassified (20 sources) FH: Congenital anomaly; Translations: [Family history of other congenital malformations, deformations and chromosomal abnormalities] Onset: 3 03-25-2023 Episodic Residual codes; unclassified (2 sources) Personal history of other complications of , childbirth and the puerperium; Translations: [Personal history of other genital system and obstetric disorders] Onset: 5 10-17-2023 Episodic Residual codes; unclassified (20 sources) H/O: miscarriage; Translations: [Personal history of other complications of , childbirth and the puerperium] Onset: 5 01-21-2025 Episodic Residual codes; unclassified (20 sources) Gestation period, 20 weeks; Translations: [20 weeks gestation of ] Onset: 05-10-202 5 Resolved: 5 04-08-2025 Episodic Residual codes; unclassified (1 source) 21 weeks gestation of ; Translations: [21 weeks gestation of (HCC)] Onset: 5 Episodic Residual codes; unclassified (1 source) Family history of other congenital malformations, deformations and chromosomal abnormalities; Translations: [Family history of defect] Onset: 3 Episodic Residual codes; unclassified (1 source) 20 weeks gestation of ; Translations: [20 weeks gestation of (HCC)] Onset: 5 Episodic Residual codes; unclassified (1 source) 13 weeks gestation of ; Translations: [13 weeks gestation of ] Onset: 5 Episodic Screening and history of mental health and substance abuse codes (1 source) Personal history of other mental and behavioral disorders; Translations: [History of depression] Onset: 3 Episodic Short gestation; low weight; and growth retardation (18 sources) Prematurity of infant; Translations: [ , unspecified weeks of gestation] Onset: 5 Resolved: 5 04-25-2025 Episodic Unclassified (20 sources) Planned procedure; Translations: [Elective induction of labor planned] 03-13-2022 Urinary tract infections (20 sources) Urinary tract infectious disease; Translations: [Urinary tract infection, site not specified] Onset: 5 11-16-2022 Episodic Results Test Name Value Interpretation Reference Range Facility ROUTINE, GROUP B ST REPTOCOCCUS BY PCRon 07-27-2025 ROUTINE, GROUP B STREPTOCOCCUS BY PCR Detected Abnormal [facility] Comment on above: Performed By: #### G BPCR ####[facility] [id number] [place] [address] [place] URINE OB DIP B/Oon 5 Glucose Ql (U) Negative Neg mg/dL [facility] Interpretation and review of laboratory results Normal [facility] Protein.monoclonal (U) [Mass/Vol] Negative Neg mg/dL [facility] (ROM) Rupture Of Membraneson 07-22-2025 ROM Negative Normal Negative [facility] Comment on above: Result Comment: Amni otic fluid not present indicates No Rupture of Membranes at time of specimen collection. Performed By: #### M 100.4916 #### [facility] [address] [place], [place], [address] OB Triage Physician Noteon 0 07-22-2025 OB Triage Physician Note [facility] Medical Records Department [address] [place] [address] OB Triage Physician Note 07/22/25 0556 MR#: [id number] Acct: [id number] Name: YOKASTA PRETTY Rep #: [id number] : 1995 29 From: Bettie Blum CNM PCP: BENNETT Lind, [employer] MA[employer]-C Status:DEP CLI Y Location: [facility] HPI - General HPI Narrative YOKASTA PRETTY, is a 29 F who presents to triage to rule out rupture of membranes. Maternal Data Information CLAUDIO Calculator Estimated Delivery Date Method Current WG Current Estimate 08/22/25 Manual 35w 4d PFSH PFSH Medical History Lactating mother Vaginal [...] aerosol 90 mcg inhalation Q6H PRN PRN 06/19/25 History inhaler asthma acetaminophen 500 mg tablet 1,000 mg (2 x 500 mg) PO Q6H PRN 1 12/17/22 06/20/25 Rx PRN Pain 1-10 Or Fever #0 tabs ferrous sulfate 325 mg (65 mg 325 mg PO DAILY 06/21/25 07/21/25 History iron) tablet (Feosol) levothyroxine 125 mcg tablet 125 mcg PO DAILY 06/21/25 07/21/25 History (Synthroid) nitrofurantoin 100 mg PO DAILY 06/21/25 07/21/25 History monohydrate/macrocryst als 100 mg capsule (Macrobid) aspirin 81 mg tablet,delayed 81 mg PO DAILY 07/22/25 07/21/25 H istory release (Adult Low Dose Aspirin) Allergy/AdvReac Type Severity Reaction Status Date / Time aripiprazole Allergy Hives Verified 07/22/25 03:05 Family History Father Anxiety Depression Mental disorder Suicide attempt Grandfather Cancer lung Grandmother Myocardial infarction CVA (cerebral vascular accident) Surgical History History of cholecystectomy Hx of tonsillectomy History of surgery Social History household members: family housing: house current occupational status: employed current occupation: [employer] sexually active: Yes Smoking Status: Current every [...] intact bilaterally Psych mental status grossly normal NST FHR Rate Baby A Baseline: 130 Variability:: Moderate Accelerations: (more content not included)... Normal [facility] Urinalysis, Routine (Dipstic k)on 07-22-2025 BILIRUBIN URINE Normal Negative [facility] Comment on above: Order Comment: CLEAN CATCH Result Comment: PT D ISCHARGED Performed By: #### M 100.2200 #### [facility] [address] [place], [address] Clarity (U) Normal Clear [facility] Comment on above: Order Comment: CLEAN CATCH Result Comment: PT D ISCHARGED Performed By: #### M 100.2200 #### [facility] [address] [place], [address] Color (U) Normal Yellow [facility] Comment on above: Order Comment: CLEAN CATCH Result Comment: PT D ISCHARGED Performed By: #### M 100.2200 #### [facility] [address] [place], [address] GLUCOSE, UR Normal Normal [facility] Comment on above: Order Comment: CLEAN CATCH Result Comment: PT D ISCHARGED Performed By: #### M 100.2200 #### [facility] [address] [place], [address] KETONE UR Normal Negative [facility] Comment on above: Order Comment: CLEAN CATCH Result Comment: PT D ISCHARGED Performed By: #### M 100.2200 #### [facility] [address] [place], [address] LEUK ESTERASE Normal Negative [facility] Comment on above: Order Comment: CLEAN CATCH Result Comment: PT D ISCHARGED Performed By: #### M 100.2200 #### [facility] [address] [place], [address] Nitrite Ql (U) Normal Negative [facility] Comment on above: Order Comment: CLEAN CATCH Result Comment: PT D ISCHARGED Performed By: #### M 100.2200 #### [facility] [address] [place], [address] OCCULT BLOOD-UR Normal Negative [facility] Comment on above: Order Comment: CLEAN CATCH Result Comment: PT D ISCHARGED Performed By: #### M 100.2200 #### [facility] [address] [place], [address] pH UR Normal 5.0 - 8.0 [facility] Comment on above: Order Comment: CLEAN CATCH Result Comment: PT D ISCHARGED Performed By: #### M 100.0 #### [facility] [address] [place], [address] PROT DIPSTX Normal Negative [facility] Comment on above: Order Comment: CLEAN CATCH Result Comment: PT D ISCHARGED Performed By: #### M 100.0 #### [facility] [address] [place], [address] SP.GR. DIPSTX Normal 1.002-1.030 [facility] Comment on above: Order Comment: CLEAN CATCH Result Comment: PT D ISCHARGED Performed By: #### M 100.2200 #### [facility] [address] [place], [address] UR Preservative Normal [facility] Comment on above: Order Comment: CLEAN CATCH Result Comment: PT D ISCHARGED Performed By: #### M 100.2200 #### [facility] [address] [place], [address] UROBILI Normal Normal [facility] Comment on above: Order Comment: CLEAN CATCH Result Comment: PT D ISCHARGED Performed By: #### M 100.2200 #### [facility] [address] [place], [address] T4 Free SerPl-mCncon 025 Free T4 [Mass/Vol] 0.8 ng/dL Low 0.9-1.7 [facility] Comment on above: Order Comment: George grimes Type: BLOOD SPECIMEN Ordering Facility: [facility] Address: [address] [place] [address] Performed By: #### 3 024-7, 3016-3 #### [facility] CLIA [id number] [address] [place] [address] [place] [facility] TSH SerPl-aCncon 07-20-2025 TSH Qn 5.160 m[IU]/L High 0.270-4.200 [facility] Comment on above: Order Comment: George grimes Type: BLOOD SPECIMEN Ordering Facility: [facility] Address: [address] [place] [address] Result Comment: If t he patient is , TSH reference range varies by gestational period: First Trimester (weeks 9-12): 0.180-2.990 mIU/L Second Trimester: 0.110-3.980 mIU/L Third Trimester: 0.480-4.710 mIU/L Tonny Isaac et al. A Practical Approach for the Verifications and Determination of Site- and Trimester-Specific Reference Intervals for Thyroid Function tests in . Thyroid, 2019:29:3:412-420. Ronak Child, et al. 2017 Guidelines of the [place] Thyroid Association for the Diagnosis and Management of Thyroid Disease during and the . Thyroid, 2017:27:3:315-389. Performed By: #### 3 024-7, 3016-3 #### [facility] CLIA [id number] [address] [place] [address] STATES OF [place] CNPMargo 07-15-2025 CNPN Telephone (OBGYWM) YOKASTA PRETTY ([id number]) 1995 F Date Time Provider Department 07/15/25 EPIFANIO SANCHEZ During your visit today, we recorded the following information about you: Funmilayo Panchal RN 07/15/2025 4:15 PM Signed 34w4d Left message for patient to call office. Funmilayo Panchal RN Result Note Patient should stop the macrobid as developing UTI on it. Recommend bid bactrim for 1 week. Epifanio Sanchez MD BACTERIAL CULTURE, URINE Allergies As [...] Encounter Status:Closed by FUNMILAYO PANCHAL on 07/16/25 Normal [facility] Bacteria Ur Culton Bacteria identified Cx Nom [...] , Intermediate >32 , Resistant >64 Abnormal [facility] Comment on above: Performed By: #### 6 30-4 ####[facility] [id number] [address] STATES OF [facility] Examination level ultrasound on 07-02-2025 [facility] Radiology Study observation (narrative) [facility] Absolute lymphocyte countOrd ered By: Noam Wyman on 06-21-2025 Lymphocytes Auto (Unsp spec) [#/Vol] 1.25 10*3/uL 0.83-4.51 [facility] Absolute neutrophil countOrd ered By: Noam Wyman on 06-21-2025 Neutrophils (Bld) [#/Vol] 7.7 10*3/uL 2.0-7.7 [facility] Automated lymphocyte count a s percentage of total leukocytesOrdered By: Noam Wyman on 06-21-2025 Lymphocytes/100 WBC Auto (Unsp spec) 12.8 % Low 19-41 [facility] Bacteria Ur Culton Bacteria identified Cx [...] , Intermediate >32 , Resistant >64 Abnormal [facility] Comment on above: Performed By: #### 6 30-4 ####[facility] [id number] [address] STATES OF [facility] Basophil percentageOrdered B y: Noam Wyman on 06-21-2025 Basophils/100 WBC (Bld) 0.2 % 0-1 [facility] CBC W/Diff, Automatedon 06-02 Absolute Lymph 1.25 X10 3/uL Normal 0.83-4.51 [facility] Comment on above: Performed By: #### M 100.2200 #### [facility] [address] [place], [address] Absolute Neut 7.7 X10 3/uL Normal 2.0-7.7 [facility] Comment on above: Performed By: #### M 100.2200 #### [facility] [address] [place], [address] Basophils/100 WBC (Bld) 0.2 % Normal 0-1 [facility] Comment on above: Performed By: #### M 100.2200 #### [facility] [address] [place], [address] Eosinophils/100 WBC (Bld) 0.5 % Normal 0-5 [facility] Comment on above: Performed By: #### M 100.2200 #### [facility] [address] [place], [address] Erythrocyte distribution width (RBC) [Ratio] 15.9 % High 11.6-14.6 [facility] Comment on above: Performed By: #### M 100.2200 #### [facility] [address] [place], [address] Hematocrit (Bld) [Volume fraction] 30.6 % Low 37-47 [facility] Comment on above: Performed By: #### M 100.2200 #### [facility] [address] [place], [address] Hemoglobin (Bld) [Mass/Vol] 9.9 g/dL Low 12.0-15.0 [facility] Comment on above: Performed By: #### M 100.2200 #### [facility] [address] [place], [address] IG% 0.500 Normal 0.0-0.9 [facility] Comment on above: Result Comment: IG% - Immature Granulocytes (promyelocytes, myelocytes and metamyelocytes) > 1% indicates that a LEFT SHIFT is Present. Performed By: #### M 100.2200 #### [facility] [address] [place], [address] Lymphocytes/100 WBC (Bld) 12.8 % Low 19-41 [facility] Comment on above: Performed By: #### M 100.2200 #### [facility] [address] [place], [address] MCH (RBC) [Entitic mass] 27.0 pg Normal 27.0-32.0 [facility] Comment on above: Performed By: #### M 100.2200 #### [facility] [address] [place], [address] MCHC (RBC) [Mass/Vol] 32.4 g/dL Normal 32-36 [facility] Comment on above: Performed By: #### M 100.2200 #### [facility] [address] [place], [address] MCV (RBC) [Entitic vol] 83.6 fL Normal 81-99 [facility] Comment on above: Performed By: #### M 100.2199 #### [facility] [address] [place], [address] Monocytes/100 WBC (Bld) 6.6 % Normal 0-10 [facility] Comment on above: Performed By: #### M 100.2199 #### [facility] [address] [place], [address] Neutrophils/100 WBC (Bld) 79.4 % High 47-70 [facility] Comment on above: Performed By: #### M 100.2199 #### [facility] [address] [place], [address] Nucleated RBC (Bld) [#/Vol] 0 10*3/uL Normal 0-5 [facility] Comment on above: Performed By: #### M 100.2199 #### [facility] [address] [place], [address] Platelet mean volume (Bld) [Entitic vol] 9.9 fL Normal 6.2-12.0 [facility] Comment on above: Performed By: #### M 100.2199 #### [facility] [address] [place], [address] Platelets (Bld) [#/Vol] 362 10*3/uL Normal 150-450 [facility] Comment on above: Performed By: #### M 100.2199 #### [facility] [address] [place], [address] RBC (Bld) [#/Vol] 3.66 10*6/uL Low 4.2-5.4 [facility] Comment on above: Performed By: #### M 100.2199 #### [facility] [address] [place], [address] RDW SD 48.4 fl High 35.1-43.9 [facility] Comment on above: Performed By: #### M 100.2199 #### [facility] [address] [place], [address] WBC (Bld) [#/Vol] 9.8 10*3/uL Normal 4.4-11.0 [facility] Comment on above: Performed By: #### M 100.2200 #### [facility] [address] [place], [address] Eosinophil percentageOrdered By: Noam Wyman on 06-21-2025 Eosinophils/100 WBC (Bld) 0.5 % 0-5 [facility] Erythrocyte distribution wid th ratioOrdered By: Noam Wyman on 06-21-2025 Erythrocyte distribution width (RBC) [Ratio] 15.9 % High 11.6-14.6 [facility] Erythrocyte distribution wid th standard deviationOrdered By: Noam Wyman on 06-21-2025 Erythrocyte distribution width (RBC) [Ratio] 48.4 fl High 35.1-43.9 [facility] Hematocrit Auto (Bld) [Volum e fraction]Ordered By: Noam Wyman on 06-21-2025 Hematocrit (Bld) [Volume fraction] 30.6 % Low 37-47 [facility] Hemoglobin measurementOrdere d By: Noam Wyman on 06-21-2025 Hemoglobin (Bld) [Mass/Vol] 9.9 g/dL Low 12.0-15.0 [facility] Immature granulocytes/100 WB C Auto (Bld)Ordered By: Noam Wyman on 06-21-2025 Immature granulocytes/100 WBC (Bld) 0.500 % 0.0-0.9 [facility] Comment on above: IG% - Immature Granu locytes (promyelocytes, myelocytes and metamyelocytes) > 1% indicates that a LEFT SHIFT is Present. MCV (mean corpuscular volume ) determinationOrdered By: Noam Wyman on 06-21-2025 MCV (RBC) [Entitic vol] 83.6 fL 81-99 [facility] Mean corpuscular hemoglobin (MCH) determinationOrdered By: Noam Wyman on 06-21-2025 MCH (RBC) [Entitic mass] 27.0 pg 27.0-32.0 [facility] Mean corpuscular hemoglobin concentration (MCHC) determinationOrdered By: Noam Wyman on 06-21-2025 MCHC (RBC) [Mass/Vol] 32.4 g/dL 32-36 [facility] Mean platelet volume determi nationOrdered By: Noam Wyman on 06-21-2025 Platelet mean volume (Bld) [Entitic vol] 9.9 fL 6.2-12.0 [facility] Monocyte percentageOrdered B y: Noam Wyman on 06-21-2025 Monocytes/100 WBC (Bld) 6.6 % 0-10 [facility] Neutrophil percentageOrdered By: Noam Wyman on 06-21-2025 Neutrophils/100 WBC (Bld) 79.4 % High 47-70 [facility] Nucleated red blood cell per centageOrdered By: Noam Wyman on 06-21-2025 Nucleated RBC/100 WBC (Bld) [Ratio] 0 % 0-5 [facility] OB Triage Physician Noteon 0 06-21-2025 OB Triage Physician Note [facility] Medical Records Department [address] [place] [address] OB Triage Physician Note 06/21/25 1709 MR#: [id number] Acct: [id number] Name: YOKASTA PRETTY Rep #: [id number] : 1995 29 From: Bettie Blum CNM PCP: BENNETT Lind, [employer]-C Status:REG CLI Y Location: [place] [address]-1 HPI - General HPI Narrative YOKASTA PRETTY, [...] house current occupational status: employed current occupation: [employer] sexually active: Yes Smoking Status: Current every [...] 24 hours Continuous monitoring 06/21/25 1715 Date Bettie Blum CNM Cosigner Signature (if applicable): Date CC: SHANITA Blum; [facility] [employer] Nighat Munoz Signed Normal [facility] Platelet countOrdered By: Sa ra Wyman on 06-21-2025 Platelets (Bld) [#/Vol] 362 10*3/uL 150-450 [facility] RBC Auto (Bld) [#/Vol]Ordere d By: Noam Wyman on 06-21-2025 RBC (Bld) [#/Vol] 3.66 10*6/uL Low 4.2-5.4 [facility] UA DIP, URINE (POC)on 2024 BILIRUBIN UA (POCT) Negative Negative [facility] CLARITY UA (POCT) Cloudy [facility] COLOR UA (POCT) Dark yellow [facility] GLUCOSE UA (POCT) Negative Negative mg/dL [facility] Hemoglobin Ql (U) Moderate Abnormal Negative [facility] Interpretation and review of laboratory results Abnormal [facility] KETONE UA (POCT) Negative Negative mg/dL [facility] LEUKOCYTES UA (POCT) Large Abnormal Negative [facility] NITRITE UA (POCT) Positive Abnormal Negative [facility] PH UA (POCT) 6.5 4.5 - 8.0 [facility] Protein Ql (U) 100 mg/dL Abnormal Negative [facility] SPECIFIC GRAVITY UA (POCT) 1.025 1.005 - 1.030 [facility] UROBILINOGEN UA (POCT) 0.2 Normal E.U./d L [facility] Location:[facility], [address] [facility], [place], [place], [address] [place] [address] POINT OF CARE [facility] White blood cell (WBC) count Ordered By: Noam Wyman on 06-21-2025 WBC (Bld) [#/Vol] 9.8 10*3/uL 4.4-11.0 [facility] GLUCOSE GESTATIONAL, 1 HOURo n 06-08-2025 Glucose 1 Hr post Unsp challenge [Mass/Vol] 120 mg/dL Normal 74-179 [facility] Comment on above: Order Comment: George grimes Type: BLOOD SPECIMENOrdering Facility: [facility] Address: [address] [place] [address] Result Comment: [facility] Congress of Obstetricians and Gynecologists (Yanick/Linda) guidelines state gestational diabetes mellitus is present when 2 or more of the plasma glucose concentrations meet or exceed the following levels: fastin mg/dl, 1 hr: 180 mg/dl, 2 hr: 155 mg/dl, and 3 hr: 140 mg/dl. Performed By: #### G TGST1 ####[facility] [id number] [place] [address] [place] GLUCOSE GESTATIONAL, 2 HOURo n 06-08-2025 Glucose 2 Hr post Unsp challenge [Mass/Vol] 115 mg/dL Normal 74-154 [facility] Comment on above: Order Comment: George grimes Type: BLOOD SPECIMEN Ordering Facility: [facility] Address: [address] [place] [address] Result Comment: [facility] Congress of Obstetricians and Gynecologists (Yanick/Linda) guidelines state gestational diabetes mellitus is present when 2 or more of the plasma glucose concentrations meet or exceed the following levels: fastin mg/dl, 1 hr: 180 mg/dl, 2 hr: 155 mg/dl, and 3 hr: 140 mg/dl. Performed By: #### 3 024-7, 3016-3 #### [facility] CLIA [id number] [address] [place] [address] [place] GLUCOSE GESTATIONAL, 3 HOURo n 06-08-2025 Glucose 3 Hr post Unsp challenge [Mass/Vol] 102 mg/dL Normal 74-139 [facility] Comment on above: Order Comment: Speci men Type: BLOOD SPECIMEN Ordering Facility: [facility] Address: [address] [place] [address] Result Comment: [facility] Congress of Obstetricians and Gynecologists (Herndon/Radhaan) guidelines state gestational diabetes mellitus is present when 2 or more of the plasma glucose concentrations meet or exceed the following levels: fastin mg/dl, 1 hr: 180 mg/dl, 2 hr: 155 mg/dl, and 3 hr: 140 mg/dl. Performed By: #### 3 024-7, 3016-3 #### [facility] CLIA [id number] [address] [place] [address] [place] GLUCOSE GESTATIONAL, FASTING on 06-08-2025 Glucose post fast [Mass/Vol] 91 mg/dL Normal 74-94 [facility] Comment on above: Order Comment: Koreyi cornelio Type: BLOOD SPECIMENOrdering Facility: [facility] Address: [address] [place] [address] Result Comment: [facility] Congress of Obstetricians and Gynecologists (Herndon/Marissastan) guidelines state gestational diabetes mellitus is present when 2 or more of the plasma glucose concentrations meet or exceed the following levels: fastin mg/dl, 1 hr: 180 mg/dl, 2 hr: 155 mg/dl, and 3 hr: 140 mg/dl. Performed By: #### G TGSTF ####[facility] [id number] [place] [address] [place] CNPMargo 06-07-2025 CNPN Telephone (OGFVWE) YOKASTA PRETTY ([id number]) 1995 F Date Time Provider Department 06/07/25 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 [facility] [place] OGFVWE During your visit today, we recorded the following information about you: Katelynn Luciano, RN 06/07/2025 10:00 AM Signed 3rd risk assessment form submitted 06/07/25 Katelynn Luciano RN Allergies As of Date: 06/07/2025 Noted Allergy Reaction ABILIFY (ARIPIPRAZOLE) 03/05/2016 4 - Hives Date Reviewed: 05/06/2025 Reviewed by: Judit Pimentel APRN.SLOT FLOOR ATTENDANT - Fully Assessed Reason for Visit: PRAF [...] Status:Closed by KATELYNN LUCIANO on 06/07/25 Normal [facility] CBC W Auto Differential pane l (Bld)on 06-03-2025 Basophils (Bld) [#/Vol] 0.03 10*3/uL Normal <0.11 [facility] Comment on above: Order Comment: Speci men Type: BLOOD SPECIMENOrdering Facility: [facility] Address: [address] [place] [address] Performed By: #### 5 7021-8 ####[facility] [id number] [place] [address] [place] Basophils/100 WBC (Bld) 0.3 % Normal [facility] Comment on above: Order Comment: Speci men Type: BLOOD SPECIMENOrdering Facility: [facility] Address: [address] [place] [address] Performed By: #### 5 7021-8 ####[facility] [id number] [place] [address] [place] Differential cell count method Nom (Bld) Auto Normal [facility] Comment on above: Order Comment: Speci men Type: BLOOD SPECIMENOrdering Facility: [facility] Address: [address] [place] [address] Performed By: #### 5 7021-8 ####[facility] [id number] [place] [address] [place] Eosinophils (Bld) [#/Vol] 0.08 10*3/uL Normal <0.46 [facility] Comment on above: Order Comment: Speci men Type: BLOOD SPECIMENOrdering Facility: [facility] Address: [address] [place] [address] Performed By: #### 5 7021-8 ####[facility] [id number] [place] [address] [place] Eosinophils/100 WBC (Bld) 0.8 % Normal [facility] Comment on above: Order Comment: Speci men Type: BLOOD SPECIMENOrdering Facility: [facility] Address: [address] [place] [address] Performed By: #### 5 7021-8 ####[facility] [id number] [place] [address] [place] Erythrocyte distribution width (RBC) [Ratio] 15.9 % High 11.5-15.0 [facility] Comment on above: Order Comment: Speci men Type: BLOOD SPECIMENOrdering Facility: [facility] Address: [address] [place] [address] Performed By: #### 5 7021-8 ####[facility] [id number] [place] [address] [place] Hematocrit (Bld) [Volume fraction] 33.7 % Low 36.0-46.0 [facility] Comment on above: Order Comment: Speci men Type: BLOOD SPECIMENOrdering Facility: [facility] Address: [address] [place] [address] Performed By: #### 5 7021-8 ####[facility] [id number] [place] [address] [place] Hemoglobin (Bld) [Mass/Vol] 11.1 g/dL Low 11.5-15.5 [facility] Comment on above: Order Comment: Speci men Type: BLOOD SPECIMENOrdering Facility: [facility] Address: [address] [place] [address] Performed By: #### 5 7021-8 ####[facility] [id number] [place] [address] [place] Immature granulocytes (Bld) [#/Vol] 0.03 10*3/uL Normal <0.10 [facility] Comment on above: Order Comment: Speci men Type: BLOOD SPECIMENOrdering Facility: [facility] Address: [address] [place] [address] Performed By: #### 5 7021-8 ####[facility] MILLTOWNCLIA [id number] [place] [address] [place] Immature granulocytes/100 WBC (Bld) 0.3 % Normal [facility] Comment on above: Order Comment: Speci men Type: BLOOD SPECIMENOrdering Facility: [facility] Address: [address] [place] [address] Performed By: #### 5 7021-8 ####[facility] [id number] [place] [address] [place] Lymphocytes (Bld) [#/Vol] 1.45 10*3/uL Normal 1.00-4.00 [facility] Comment on above: Order Comment: Speci men Type: BLOOD SPECIMENOrdering Facility: [facility] Address: [address] [place] [address] Performed By: #### 5 7021-8 ####[facility] [id number] [place] [address] [place] Lymphocytes/100 WBC (Bld) 14.3 % Normal [facility] Comment on above: Order Comment: Speci men Type: BLOOD SPECIMENOrdering Facility: [facility] Address: [address] [place] [address] Performed By: #### 5 7021-8 ####[facility] [id number] [place] [address] [place] MCH (RBC) [Entitic mass] 27.3 pg Normal 26.0-34.0 [facility] Comment on above: Order Comment: Speci men Type: BLOOD SPECIMENOrdering Facility: [facility] Address: [address] [place] [address] Performed By: #### 5 7021-8 ####[facility] [id number] [place] [address] [place] MCHC (RBC) [Mass/Vol] 32.9 g/dL Normal 30.5-36.0 [facility] Comment on above: Order Comment: Speci men Type: BLOOD SPECIMENOrdering Facility: [facility] Address: [address] [place] [address] Performed By: #### 5 7021-8 ####[facility]ENTER[facility]URY [id number] [place] [address] [place] MCV (RBC) [Entitic vol] 82.8 fL Normal 80.0-100.0 [facility] Comment on above: Order Comment: Speci men Type: BLOOD SPECIMENOrdering Facility: [facility] Address: [address] [place] [address] Performed By: #### 5 7021-8 ####[facility]ENTERTERES[facility]AV[facility] [id number] [place] [address] [place] Monocytes (Bld) [#/Vol] 0.47 10*3/uL Normal <0.87 [facility] Comment on above: Order Comment: Speci men Type: BLOOD SPECIMENOrdering Facility: [facility] Address: [address] [place] [address] Performed By: #### 5 7021-8 ####[facility] [id number] [place] [address] [place] Monocytes/100 WBC (Bld) 4.6 % Normal [facility] Comment on above: Order Comment: Speci men Type: BLOOD SPECIMENOrdering Facility: [facility] Address: [address] [place] [address] Performed By: #### 5 7021-8 ####[facility] [id number] [place] [address] [place] Neutrophils (Bld) [#/Vol] 8.11 10*3/uL High 1.45-7.50 [facility] Comment on above: Order Comment: Speci men Type: BLOOD SPECIMENOrdering Facility: [facility] Address: [address] [place] [address] Performed By: #### 5 7021-8 ####[facility] [id number] [place] [address] [place] Neutrophils/100 WBC (Bld) 79.7 % Normal [facility] Comment on above: Order Comment: Speci men Type: BLOOD SPECIMENOrdering Facility: [facility] Address: [address] [place] [address] Performed By: #### 5 7021-8 ####[facility] [id number] [place] [address] [place] Nucleated RBC (Bld) [#/Vol] 10*3/uL Normal <0.01 [facility] Comment on above: Order Comment: Speci men Type: BLOOD SPECIMENOrdering Facility: [facility] Address: [address] [place] [address] Performed By: #### 5 7021-8 ####[facility] [id number] [place] [address] [place] Nucleated RBC/100 WBC (Bld) [Ratio] 0.0 /100 WBC Normal [facility] Comment on above: Order Comment: Speci men Type: BLOOD SPECIMENOrdering Facility: [facility] Address: [address] [place] [address] Performed By: #### 5 7021-8 ####[facility] [id number] [place] [address] [place] Platelet mean volume (Bld) [Entitic vol] 9.5 fL Normal 9.0-12.7 [facility] Comment on above: Order Comment: Speci men Type: BLOOD SPECIMENOrdering Facility: [facility] Address: [address] [place] [address] Performed By: #### 5 7021-8 ####[facility] RODNEYNCREENAA [id number] [place] [address] [place] Platelets (Bld) [#/Vol] 364 10*3/uL Normal 150-400 [facility] Comment on above: Order Comment: Speci men Type: BLOOD SPECIMENOrdering Facility: [facility] Address: [address] [place] [address] Performed By: #### 5 7021-8 ####[facility]OM[facility] CLAIRENCLIA [id number] [place] [address] [place] RBC (Bld) [#/Vol] 4.07 10*6/uL Normal 3.90-5.20 [facility] Comment on above: Order Comment: Speci men Type: BLOOD SPECIMENOrdering Facility: [facility] Address: [address] [place] [address] Performed By: #### 5 7021-8 ####[facility]ENTERNCL[facility] [id number] [place] [address] [place] WBC (Bld) [#/Vol] 10.17 10*3/uL Normal 3.70-11.00 [facility] Comment on above: Order Comment: Speci men Type: BLOOD SPECIMENOrdering Facility: [facility] Address: [address] [place] [address] Performed By: #### 5 7021-8 ####[facility]ENTERNCLIA [id number] [place] [address] [place] GESTATIONAL GLUCOSE SCREEN, 1-HOUR, 50 GRAM, NON-FASTINGon 06-03-2025 Glucose [Mass/Vol] 139 mg/dL High 74-134 [facility] Comment on above: Order Comment: Speci men Type: BLOOD SPECIMENOrdering Facility: [facility] Address: [address] [place] [address] Result Comment: [facility] Congress of Obstetricians and Gynecologists (Yanick/Linda) guidelines state a gestational diabetes mellitus positive screen is made, in women not previously diagnosed with overt diabetes, when the 1 hr plasma glucose level is equal to or above 140 mg/dL. The [facility] Library Media Assistant and Women's [facility] Mcguffey recommends a 135 mg/dL cutoff. Performed By: #### G LTGST ####[facility] [id number] [place] [address] [place] Reagin and Treponema pallidu m IgG and IgM [Interp]on 06-03-2025 T. pallidum IgG+IgM IA Ql (S) Non-Reactive Normal Nonreactive [facility] Comment on above: Order Comment: Speci men Type: BLOOD SPECIMEN Ordering Facility: [facility] Address: [address] [place] [address] Performed By: #### 3 024-7, 3016-3 #### [facility] CLIA [id number] [address] [place] [address] [place] Reagin+T pallidum IgG+IgM Se rPl-Impon 06-03-2025 Reagin and Treponema pallidum IgG and IgM [Interp] Cannot exclude recent Treponemal infection if specimen collected within 7-10 days after appearance of suspect lesions or 2-3 weeks after an exposure. Clinical correlation is required. Normal [facility] Comment on above: Order Comment: Speci men Type: BLOOD SPECIMEN Ordering Facility: [facility] Address: [address] [place] [address] Performed By: #### 3 024-7, 3016-3 #### [facility] CLIA [id number] [address] [place] [address] [place] BILE ACIDS, TOTALon 05-06-20 25 Bile acid [Moles/Vol] 3.9 umol/L Normal <7.5 [facility] Comment on above: Order Comment: Speci men Type: BLOOD SPECIMENOrdering Facility: [facility] Address: [address] [place] [place] [id number] Result Comment: Refe rence interval applies to [...] 10.4 umol/L Performed By: #### B ILETO ####[facility] LAB[facility] [id number] [place] [id number] [place] Bacteria Ur Culton Bacteria identified Cx Nom (U) ORGANISM ID: 1 10,000 -<50,000 CFU/ml Normal urogenital kilo Normal [facility] Comment on above: Performed By: #### 6 30-4 ####[facility] LAB[facility] [id number] [place] [id number] [place] Comprehensive metabolic 2000 panelOrdered By: Tammie Chavez on 05-06-2025 Albumin [Mass/Vol] 3.6 g/dL Low 3.9 - 4.9 g/dL [facility] ALP [Catalytic activity/Vol] 85 U/L 34 - 123 U/L [facility] ALT [Catalytic activity/Vol] 29 U/L 7 - 38 U/L [facility] Anion gap [Moles/Vol] 14 mmol/L 8 - 15 mmol/L [facility] AST [Catalytic activity/Vol] 16 U/L 13 - 35 U/L [facility] Bilirubin [Mass/Vol] 0.4 mg/dL 0.2 - 1 .3 mg/dL [facility] Calcium [Mass/Vol] 9.1 mg/dL 8.5 - 10. 2 mg/dL [facility] Chloride [Moles/Vol] 104 mmol/L 98 - 10 7 mmol/L [facility] CO2 [Moles/Vol] 16 mmol/L Low 22 - 30 mmol/L [facility] Creatinine [Mass/Vol] 0.58 mg/dL 0.58 - 0.96 mg/dL [facility] GFR/1.73 sq M.predicted among non-blacks MDRD (S/P/Bld) [Vol rate/Area] 127 mL/min/{1.73_m2} - PINF [facility] Comment on above: Estimated Glomerular Filtration [...] [Mass/Vol] 96 mg/dL 74 - 99 mg/dL [facility] Comment on above: The [place] Diabete s Association (ADA) provides guidance for [...] Standards of Medical Care in Diabetes 2016, [place] Diabetes Association. Diabetes Care. 2016.39(Suppl 1). Interpretation and review of laboratory results Abnormal [facility] Potassium [Moles/Vol] 3.6 mmol/L Low 3.7 - 5.1 mmol/L [facility] Protein [Mass/Vol] 6.7 g/dL 6.3 - 8.0 g/dL [facility] Sodium [Moles/Vol] 134 mmol/L Low 136 - 144 mmol/L [facility] Urea nitrogen [Mass/Vol] 7 mg/dL 7 - 21 mg/dL [facility] Comprehensive metabolic 2000 panelon 05-06-2025 Albumin [Mass/Vol] 3.6 g/dL Low 3.9-4.9 [facility] Comment on above: Order Comment: Speci men Type: BLOOD SPECIMEN Ordering Facility: [facility] Address: [address] [place] [address] Performed By: #### 2 4323-8 #### [facility] [id number] [address] [place] [address] [place] ALP [Catalytic activity/Vol] 85 U/L Normal 34-123 [facility] Comment on above: Order Comment: Speci men Type: BLOOD SPECIMEN Ordering [facility]: [facility] Address: [address] [place] [address] Performed By: #### 2 4323-8 #### [facility] [id number] [address] [place] [address] [place] ALT [Catalytic activity/Vol] 29 U/L Normal 7-38 [facility] Comment on above: Order Comment: Speci men Type: BLOOD SPECIMEN Ordering Facility: [facility] Address: [address] [place] [address] Performed By: #### 2 4323-8 #### [facility] [id number] [address] [place] [address] [place] Anion gap [Moles/Vol] 14 mmol/L Normal 8-15 [facility] Comment on above: Order Comment: Speci men Type: BLOOD SPECIMEN Ordering Facility: [facility] Address: [address] [place] [address] [place] [address] Performed By: #### 2 4323-8 #### [facility] CLIA [id number] [address] [place] [address] [place] AST [Catalytic activity/Vol] 16 U/L Normal 13-35 [facility] Comment on above: Order Comment: Speci men Type: BLOOD SPECIMEN Ordering Facility: [facility] Address: [facility] [place] [address] Performed By: #### 2 4323-8 #### [facility] CLIA [id number] [address] [place] [address] [place] Bilirubin [Mass/Vol] 0.4 mg/dL Normal 0.2-1.3 [facility] Comment on above: Order Comment: Speci men Type: BLOOD SPECIMEN Ordering Facility: [facility] Address: [address] [place] [address] Performed By: #### 2 4323-8 #### [facility] CLIA [id number] [address] [place] [address] [place] Calcium [Mass/Vol] 9.1 mg/dL Normal 8.5-10.2 [facility] Comment on above: Order Comment: Speci men Type: BLOOD SPECIMEN Ordering [facility]: [facility] Address: [address] [place] [address] Performed By: #### 2 4323-8 #### [facility] CLIA [id number] [address] [place] [address] [place] Chloride [Moles/Vol] 104 mmol/L Normal 98-107 [facility] Comment on above: Order Comment: Speci men Type: BLOOD SPECIMEN Ordering [facility]: [facility] Address: [address] [place] [address] Performed By: #### 2 4323-8 #### [facility] CLIA [id number] [address] [place] [address] [place] CO2 [Moles/Vol] 16 mmol/L Low 22-30 [facility] Comment on above: Order Comment: Koreyi men Type: BLOOD SPECIMEN Ordering [facility]: [facility] Address: [address] [place] [address] Performed By: #### 2 4323-8 #### [facility] CLIA [id number] [address] [place] [address] [place] Creatinine [Mass/Vol] 0.58 mg/dL Normal 0.58-0.96 [facility] Comment on above: Order Comment: Speci men Type: BLOOD SPECIMEN Ordering Facility: [facility] Address: [address] [place] [address] Performed By: #### 2 4323-8 #### [facility] [id number] [address] [place] [address] [place] [facility] Creatinine and Glomerular filtration rate.predicted panel (S/P/Bld) 127 mL/min/1.73m??? Normal >=60 [facility] Comment on above: Order Comment: Koreyi men Type: BLOOD SPECIMEN Ordering Facility: [facility] Address: [address] [place] [address] Result Comment: Yeimy mated Glomerular Filtration Rate [...] GFR. Performed By: #### 2 4323-8 #### [facility] [id number] [address] [place] [address] [place] Glucose [Mass/Vol] 96 mg/dL Normal 74-99 [facility] Comment on above: Order Comment: Koreyi men Type: BLOOD SPECIMEN Ordering Facility: [facility] Address: [address], [place] [address] Result Comment: The [place] Diabetes Association (ADA) provides guidance for cutoff [...] Standards of Medical Care in Diabetes 2016, [place] Diabetes Association. Diabetes Care. 2016.39(Suppl 1). Performed By: #### 2 4323-8 #### [facility] [id number] [address] [place] [address] [place] Potassium [Moles/Vol] 3.6 mmol/L Low 3.7-5.1 [facility] Comment on above: Order Comment: Speci men Type: BLOOD SPECIMEN Ordering Facility: [facility] Address: [address] [place] [address] Performed By: #### 2 4323-8 #### [facility] [id number] [address] [place] [address] [place] Protein [Mass/Vol] 6.7 g/dL Normal 6.3-8.0 [facility] Comment on above: Order Comment: Koreyi men Type: BLOOD SPECIMEN Ordering Facility: [facility] Address: [address] [place] [address] Performed By: #### 2 4323-8 #### [facility] CLIA [id number] [address] [place] [address] [place] Sodium [Moles/Vol] 134 mmol/L Low 136-144 [facility] Comment on above: Order Comment: Speci men Type: BLOOD SPECIMEN Ordering Facility: [facility] Address: [address] [place] [address] Performed By: #### 2 4323-8 #### [facility] CLIA [id number] [address] [place] [address] [place] Urea nitrogen [Mass/Vol] 7 mg/dL Normal 7-21 [facility] Comment on above: Order Comment: Speci men Type: BLOOD SPECIMEN Ordering Facility: [facility] Address: [address] [place] [address] Performed By: #### 2 4323-8 #### [facility] CLIA [id number] [address] [place] [address] [place] T4 Free SerPl-mCncon 025 Free T4 [Mass/Vol] 0.7 ng/dL Low 0.9-1.7 [facility] Comment on above: Order Comment: Speci men Type: BLOOD SPECIMENOrdering Facility: [facility] Address: [address] [place] [address] Performed By: #### 3 024-7, 3016-3 ####[facility] [id number] [place] [address] [place] TSH SerPl-aCncon 05-06-2025 TSH Qn 5.060 m[IU]/L High 0.270-4.200 [facility] Comment on above: Order Comment: Speci men Type: BLOOD SPECIMENOrdering Facility: [facility] Address: [address] [place] [address] Result Comment: If t he patient is , TSH reference range varies by gestational period: First Trimester (weeks 9-12): 0.180-2.990 mIU/L Second Trimester: 0.110-3.980 mIU/L Third Trimester: 0.480-4.710 mIU/L Tonny Isaac et al. A Practical Approach for the Verifications and Determination of Site- and Trimester-Specific Reference Intervals for Thyroid Function tests in . Thyroid, 2019:29:3:412-420. Ronak E, et al. 2017 Guidelines of the [place] Thyroid Association for the Diagnosis and Management of Thyroid Disease during and the . Thyroid, 2017:27:3:315-389. Performed By: #### 3 024-7, 3016-3 ####[facility] [id number] [address] OF [facility] CBC panel Auto (Bld)on 04-28 Erythrocyte distribution width (RBC) [Ratio] 16.8 % High 11.5-15.0 [facility] Comment on above: Order Comment: Speci men Type: BLOOD SPECIMENOrdering Facility: [facility] Address: [address] [place] [address] Performed By: #### 6 30-4, 40245-9 #### [facility] CLIA [id number] [address] Hematocrit (Bld) [Volume fraction] 32.3 % Low 36.0-46.0 [facility] Comment on above: Order Comment: Speci men Type: BLOOD SPECIMENOrdering Facility: [facility] Address: [address] [place] [address] Performed By: #### 6 30-4, 45400-9 #### [facility] CLIA [id number] [address] OF [facility] Hemoglobin (Bld) [Mass/Vol] 10.4 g/dL Low 11.5-15.5 [facility] Comment on above: Order Comment: Speci men Type: BLOOD SPECIMENOrdering Facility: [facility] Address: [address] [place] [address] Performed By: #### 6 30-4, 87867-7 #### [facility] CLIA [id number] [address] STATES OF [facility] MCH (RBC) [Entitic mass] 27.5 pg Normal 26.0-34.0 [facility] Comment on above: Order Comment: Speci men Type: BLOOD SPECIMENOrdering Facility: [facility] Address: [address] [place] [address] Performed By: #### 6 30-4, 02962-7 #### [facility] CLIA [id number] [address] MCHC (RBC) [Mass/Vol] 32.2 g/dL Normal 30.5-36.0 [facility] Comment on above: Order Comment: Speci men Type: BLOOD SPECIMENOrdering Facility: [facility] [facility] Address: [address] [place] [address] Performed By: #### 6 30-4, 40290-3 #### [facility] CLIA [id number] [address] MCV (RBC) [Entitic vol] 85.4 fL Normal 80.0-100.0 [facility] Comment on above: Order Comment: Speci men Type: BLOOD SPECIMENOrdering Facility: [facility] Address: [address] [place] [address] Performed By: #### 6 30-4, 49622-7 #### [facility] CLIA [id number] [address] Nucleated RBC (Bld) [#/Vol] 10*3/uL Normal <0.01 [facility] Comment on above: Order Comment: Speci men Type: BLOOD SPECIMENOrdering Facility: [facility] Address: [address] [place] [address] Performed By: #### 6 30-4, 92848-8 #### [facility] CLIA [id number] [address] Platelet mean volume (Bld) [Entitic vol] 9.9 fL Normal 9.0-12.7 [facility] Comment on above: Order Comment: Speci men Type: BLOOD SPECIMENOrdering Facility: [facility] Address: [address] [place] [address] Performed By: #### 6 30-4, 62983-7 #### [facility] CLIA [id number] [address] OF [place] Platelets (Bld) [#/Vol] 316 10*3/uL Normal 150-400 [facility] Comment on above: Order Comment: Speci men Type: BLOOD SPECIMENOrdering Facility: [facility] Address: [address] [place] [address] Performed By: #### 6 30-4, 26274-0 #### [facility] CLIA [id number] [address] RBC (Bld) [#/Vol] 3.78 10*6/uL Low 3.90-5.20 [facility] Comment on above: Order Comment: Speci men Type: BLOOD SPECIMENOrdering Facility: [facility] Address: [address] [place] [address] Performed By: #### 6 30-4, 16685-2 #### [facility] CLIA [id number] [address] WBC (Bld) [#/Vol] 8.33 10*3/uL Normal 3.70-11.00 [facility] Comment on above: Order Comment: Speci men Type: BLOOD SPECIMENOrdering Facility: [facility] Address: [address] [place] [address] Performed By: #### 6 30-4, 24848-6 #### [facility] CLIA [id number] [address] CNDSon 04-28-2025 CNDS HNO ID: [id number] Author: EDOUARD ANDUJAR MD Service: Obstetrics Author Type: Resident Type: Discharge Summary Filed: 04/28/2025 09:11 Note Text: Attestation signed by Edouard Andujar MD at 04/28/2025 9:11 AM M Attending Addendum: Please see EMR for comprehensive details of management and counseling. Edouard Andujar MD DISCHARGE SUMMARY OBSTETRICS PATIENT NAME: Yokasta Pretty ADMISSION DATE: 04/24/2025 DISCHARGE DATE: 04/28/2025 Attending Physician: Radha Campbell MD Code Status: Not on file Treatment Team: Attending Provider: Radha Campbell MD Maternal Obstetric Provider: Epifanio Sanchez Reason for Hospitalization: Intrauterine . Principal [...] needed f (more content not included)... Normal [facility] Comprehensive metabolic 2000 panelon 04-28-2025 Albumin [Mass/Vol] 3.3 g/dL Low 3.9-4.9 [facility] Comment on above: Order Comment: Speci men Type: BLOOD SPECIMENOrdering Facility: [facility] Address: [address] [place] [address] Performed By: #### 6 30-4, 46510-2 #### [facility] CLIA [id number] [address] ALP [Catalytic activity/Vol] 74 U/L Normal 34-123 [facility] Comment on above: Order Comment: Speci men Type: BLOOD SPECIMENOrdering Facility: [facility] Address: [address] [place] [address] Performed By: #### 6 30-4, 23196-2 #### [facility] CLIA [id number] [address] ALT With P-5'-P [Catalytic activity/Vol] 23 U/L Normal 7-38 [facility] Comment on above: Order Comment: Speci men Type: BLOOD SPECIMENOrdering Facility: [facility] Address: [address] [place] [address] Performed By: #### 6 30-4, 18000-5 #### [facility] CLIA [id number] [address] Anion gap [Moles/Vol] 12 mmol/L Normal 8-15 [facility] Comment on above: Order Comment: Speci men Type: BLOOD SPECIMENOrdering Facility: [facility] Address: [address] [place] [address] Performed By: #### 6 30-4, 80051-1 #### [facility] CLIA [id number] [address] OF [facility] AST With P-5'-P [Catalytic activity/Vol] 13 U/L Normal 13-35 [facility] Comment on above: Order Comment: Speci men Type: BLOOD SPECIMENOrdering Facility: [facility] Address: [address] [place] [address] Performed By: #### 6 30-4, 65086-2 #### [facility] CLIA [id number] 1 [place] [address] [place] Bilirubin [Mass/Vol] 0.2 mg/dL Normal 0.2-1.3 [facility] Comment on above: Order Comment: Speci men Type: BLOOD SPECIMENOrdering Facility: [facility] Address: [address] [place] [address] Performed By: #### 6 30-4, 41713-8 #### [facility] CLIA [id number] [address] [place] Calcium [Mass/Vol] 8.9 mg/dL Normal 8.5-10.2 [facility] Comment on above: Order Comment: Speci men Type: BLOOD SPECIMENOrdering Facility: [facility] Address: [address] [place] [address] Performed By: #### 6 30-4, 17075-4 #### [facility] CLIA [id number] 1 [place] [address] [place] Chloride [Moles/Vol] 104 mmol/L Normal 98-107 [facility] Comment on above: Order Comment: Speci men Type: BLOOD SPECIMENOrdering Facility: [facility] Address: [address] [place] [address] Performed By: #### 6 30-4, 78981-1 #### [facility] CLIA [id number] 1 [place] [address] [place] CO2 [Moles/Vol] 21 mmol/L Low 22-30 [facility] Comment on above: Order Comment: Speci men Type: BLOOD SPECIMENOrdering Facility: [facility] Address: [address] [place] [address] Performed By: #### 6 30-4, 36573-0 #### [facility] CLIA [id number] [address] STATES OF [facility] Creatinine [Mass/Vol] 0.56 mg/dL Low 0.58-0.96 [facility] Comment on above: Order Comment: George grimes Type: BLOOD SPECIMENOrdering Facility: [facility] Address: [address] [place] [address] Performed By: #### 6 30-4, 14585-2 #### [facility] CLIA [id number] [address] Creatinine and Glomerular filtration rate.predicted panel (S/P/Bld) 128 mL/min/1.73m??? Normal >=60 [facility] Comment on above: Order Comment: George grimes Type: BLOOD SPECIMENOrdering Facility: [facility] Address: [address] [place] [address] Result Comment: Yeimy mated Glomerular Filtration Rate [...] actual GFR. Performed By: #### 6 30-4, 69678-3 #### [facility] CLIA [id number] [address] Glucose [Mass/Vol] 85 mg/dL Normal 74-99 [facility] Comment on above: Order Comment: George grimes Type: BLOOD SPECIMENOrdering Facility: [facility] Address: [address] [place] [address] Result Comment: The [place] Diabetes [employer] (ADA) provides guidance for cutoff [...] Standards of Medical Care in Diabetes 2016, [place] [employer]. Diabetes Care. 2016.39(Suppl 1). Performed By: #### 6 30-4, 36914-3 #### [facility] CLIA [id number] [address] [place] Potassium [Moles/Vol] 3.7 mmol/L Normal 3.7-5.1 [facility] Comment on above: Order Comment: Speci men Type: BLOOD SPECIMENOrdering Facility: [facility] Address: [address] [place] [address] Performed By: #### 6 30-4, 09599-0 #### [facility] CL[facility] [id number] 1 [place] [address] [place] Protein [Mass/Vol] 6.1 g/dL Low 6.3-8.0 [facility] Comment on above: Order Comment: Speci men Type: BLOOD SPECIMENOrdering Facility: [facility] Address: [address] [place] [address] Performed By: #### 6 30-4, 85484-6 #### [facility] CLIA [id number] [address] [place] Sodium [Moles/Vol] 137 mmol/L Normal 136-144 [facility] Comment on above: Order Comment: Speci men Type: BLOOD SPECIMENOrdering Facility: [facility] Address: [address] [place] [address] Performed By: #### 6 30-4, 94237-4 #### [facility] CLIA [id number] 1 [place] [address] [place] Urea nitrogen [Mass/Vol] 7 mg/dL Normal 7-21 [facility] Comment on above: Order Comment: Speci men Type: BLOOD SPECIMENOrdering Facility: [facility] Address: [address] [place] [address] Performed By: #### 6 30-4, 57616-5 #### [facility] CLIA [id number] [address] TYPE + SCREEN PRENATALon ABO O Normal [facility] Comment on above: Order Comment: Speci men Type: BLOOD SPECIMENOrdering Facility: [facility] Address: [address] [place] [address] Performed By: #### T SPN ####[facility] BANKCLIA [id number] [address] Rh Nom (Bld) Positive Normal [facility] Comment on above: Order Comment: Speci men Type: BLOOD SPECIMENOrdering Facility: [facility] Address: [address] [place] [address] Performed By: #### T SPN ####[facility]LO[facility] BANKCLIA [id number] [address] TYPE AND SCREEN EXPIRATION 05/01/2025 23:59 Normal [facility] Comment on above: Order Comment: Speci men Type: BLOOD SPECIMENOrdering Facility: [facility] Address: [address] [place] [address] Performed By: #### T SPN ####[facility]LO[facility] BANKCLIA [id number] [address] OF [facility] ALLIED HEALTHon 04-27-2025 ALLIED HEALTH HNO ID: [id number] Author: GREGORIO DONALD director employment Service: ? Author Type: Technologist Type: Allied [...] PATIENT PRESENTS WITH AN IMPLANTABLE OR ATTACHED COLLECTIONS SPECIALIST: No RADIOLOGY DEPARTMENT: MR; Exam(s) Completed: Body: MRUrogram. Lavender Administered: No PERIPHERAL IV DATA: Inpatient: see LDA documentation SIGNED BY: OMAYRA Strong April 27, 2025 4:12 PM Normal [facility] CBC panel Auto (Bld)on 04-27 Erythrocyte distribution width (RBC) [Ratio] 16.7 % High 11.5-15.0 [facility] Comment on above: Order Comment: Speci men Type: BLOOD SPECIMENOrdering Facility: [facility] Address: [address] [place] [address] Performed By: #### 6 30-4, 45270-6 #### [facility] CLIA [id number] [address] Hematocrit (Bld) [Volume fraction] 33.2 % Low 36.0-46.0 [facility] Comment on above: Order Comment: Speci men Type: BLOOD SPECIMENOrdering Facility: [facility] Address: [address] [place] [address] Performed By: #### 6 30-4, 33104-0 #### [facility] CLIA [id number] [address] [place] Hemoglobin (Bld) [Mass/Vol] 10.7 g/dL Low 11.5-15.5 [facility] Comment on above: Order Comment: Speci men Type: BLOOD SPECIMENOrdering Facility: [facility] Address: [address] [place] [address] Performed By: #### 6 30-4, 66251-9 #### [facility] CLIA [id number] [address] [place] MCH (RBC) [Entitic mass] 27.4 pg Normal 26.0-34.0 [facility] Comment on above: Order Comment: Speci men Type: BLOOD SPECIMENOrdering Facility: [facility] Address: [address] [place] [address] Performed By: #### 6 30-4, 48404-9 #### [facility] CLIA [id number] [address] MCHC (RBC) [Mass/Vol] 32.2 g/dL Normal 30.5-36.0 [facility] Comment on above: Order Comment: Speci men Type: BLOOD SPECIMENOrdering Facility: [facility] Address: [address] [place] [address] Performed By: #### 6 30-4, 83177-3 #### [facility] CLIA [id number] [address] MCV (RBC) [Entitic vol] 85.1 fL Normal 80.0-100.0 [facility] Comment on above: Order Comment: Speci men Type: BLOOD SPECIMENOrdering Facility: [facility] Address: [address] [place] [address] Performed By: #### 6 30, 72570-9 #### [facility] CLIA [id number] [address] Nucleated RBC (Bld) [#/Vol] 10*3/uL Normal <0.01 [facility] Comment on above: Order Comment: Speci men Type: BLOOD SPECIMENOrdering Facility: [facility] Address: [address] [place] [address] Performed By: #### 6 30-4, 18408-9 #### [facility] CLIA [id number] [address] Platelet mean volume (Bld) [Entitic vol] 10.2 fL Normal 9.0-12.7 [facility] Comment on above: Order Comment: Speci men Type: BLOOD SPECIMENOrdering Facility: [facility] Address: [address] [place] [address] Performed By: #### 6 30-4, 57763-8 #### [facility] CLIA [id number] [address] Platelets (Bld) [#/Vol] 317 10*3/uL Normal 150-400 [facility] Comment on above: Order Comment: Speci men Type: BLOOD SPECIMENOrdering Facility: [facility] Address: [address] [place] [address] Performed By: #### 6 30-4, 51423-9 #### [facility] CLIA [id number] [address] [place] RBC (Bld) [#/Vol] 3.90 10*6/uL Normal 3.90-5.20 [facility] Comment on above: Order Comment: Speci men Type: BLOOD SPECIMENOrdering Facility: [facility] Address: [address] [place] [address] Performed By: #### 6 30-4, 45971-7 #### [facility] CLIA [id number] [address] STATES OF [facility] WBC (Bld) [#/Vol] 7.18 10*3/uL Normal 3.70-11.00 [facility] Comment on above: Order Comment: Speci men Type: BLOOD SPECIMENOrdering Facility: [facility] Address: [address] [place] [address] Performed By: #### 6 30-4, 22295-0 #### [facility] CLIA [id number] [address] OF [facility] CONSULT PROGon 04-27-2025 CONSULT PROG HNO ID: [id number] Author: BECKY SOTELO RPh Service: Pharmacy Author Type: Pharmacist [...] Please contact pharmacy if there are questions. Becky Sotelo [facility] Normal [facility] Comprehensive metabolic 2000 panelon 04-27-2025 Albumin [Mass/Vol] 3.3 g/dL Low 3.9-4.9 [facility] Comment on above: Order Comment: Speci men Type: URINE SPECIMEN Ordering Facility: [facility] Address: [address] [place] [address] Performed By: #### 6 30-4, 71254-0 #### [facility] CLIA [id number] [address] OF [facility] ALP [Catalytic activity/Vol] 79 U/L Normal 34-123 [facility] Comment on above: Order Comment: Speci men Type: URINE SPECIMEN Ordering Facility: [facility] Address: [address] [place] [address] Performed By: #### 6 30-4, 18105-4 #### [facility] CLIA [id number] [address] OF [facility] ALT With P-5'-P [Catalytic activity/Vol] 25 U/L Normal 7-38 [facility] Comment on above: Order Comment: Speci men Type: URINE SPECIMEN Ordering Facility: [facility] Address: [address] [place] [address] Performed By: #### 6 30-4, 60733-0 #### [facility] CLIA [id number] [address] Anion gap [Moles/Vol] 12 mmol/L Normal 8-15 [facility] Comment on above: Order Comment: Speci men Type: URINE SPECIMEN [facility]ing [facility]: [facility] Address: [address] [place] [address] Performed By: #### 6 30-4, 88906-6 #### [facility] CLIA [id number] [address] AST With P-5'-P [Catalytic activity/Vol] Normal [facility] Comment on above: Order Comment: Speci men Type: URINE SPECIMEN Ordering Facility: [facility] Address: [address] [place] [address] Result Comment: Unab le to assay due to interference from hemolysis. Suggest reorder as clinically indicated. Performed By: #### 6 30-4, 80095-7 #### [facility] CLIA [id number] [address] [place] Bilirubin [Mass/Vol] 0.2 mg/dL Normal 0.2-1.3 [facility] Comment on above: Order Comment: Speci men Type: URINE SPECIMEN Ordering Facility: [facility] Address: [facility] [place] [address] Performed By: #### 6 30-4, 22893-8 #### [facility] CLIA [id number] [address] [place] [address] [place] Calcium [Mass/Vol] 9.1 mg/dL Normal 8.5-10.2 [facility] Comment on above: Order Comment: Speci men Type: URINE SPECIMEN Ordering Facility: [facility] Address: [address] [place] [address] Performed By: #### 6 30-4, 26943-9 #### [facility] CLIA [id number] [address] [place] [address] [place] Chloride [Moles/Vol] 104 mmol/L Normal 98-107 [facility] Comment on above: Order Comment: Speci men Type: URINE SPECIMEN Ordering Facility: [facility] Address: [address] [place] [address] Performed By: #### 6 30-4, 84510-6 #### [facility] CLIA [id number] [address] [place] [address] [place] CO2 [Moles/Vol] 20 mmol/L Low 22-30 [facility] Comment on above: Order Comment: Speci men Type: URINE SPECIMEN Ordering Facility: [facility] Address: [facility] [place] [address] Performed By: #### 6 30-4, 87873-0 #### [facility] CLIA [id number] [address] [place] Creatinine [Mass/Vol] 0.59 mg/dL Normal 0.58-0.96 [facility] Comment on above: Order Comment: George grimes Type: URINE SPECIMEN Ordering Facility: [facility] Address: [address] [place] [address] Performed By: #### 6 30-4, 02161-6 #### [facility] CLIA [id number] [address] Creatinine and Glomerular filtration rate.predicted panel (S/P/Bld) 127 mL/min/1.73m??? Normal >=60 [facility] Comment on above: Order Comment: George grimes Type: URINE SPECIMEN Ordering Facility: [facility] Address: [address] [place] [address] Result Comment: Yeimy mated Glomerular Filtration Rate [...] actual GFR. Performed By: #### 6 30-4, 58158-3 #### [facility] CLIA [id number] [address] STATES OF [facility] Glucose [Mass/Vol] 97 mg/dL Normal 74-99 [facility] Comment on above: Order Comment: George grimes Type: URINE SPECIMEN Ordering Facility: [facility] Address: [address] [place] [address] Result Comment: The [place] Diabetes [employer] (ADA) provides guidance for cutoff [...] Standards of Medical Care in Diabetes 2016, [place] [employer]. Diabetes Care. 2016.39(Suppl 1). Performed By: #### 6 30-4, 69137-2 #### [facility] CLIA [id number] [address] STATES [facility] Potassium [Moles/Vol] 4.1 mmol/L Normal 3.7-5.1 [facility] Comment on above: Order Comment: Speci men Type: URINE SPECIMEN Ordering Facility: [facility] Address: [address] [place] [address] Performed By: #### 6 30-4, 47084-3 #### [facility] CLIA [id number] [address] STATES OF [facility] Protein [Mass/Vol] 6.3 g/dL Normal 6.3-8.0 [facility] Comment on above: Order Comment: Speci men Type: URINE SPECIMEN Ordering Facility: [facility] Address: [address] [place] [address] Performed By: #### 6 30-4, 70849-1 #### [facility] CLIA [id number] [address] STATES [facility] Sodium [Moles/Vol] 136 mmol/L Normal 136-144 [facility] Comment on above: Order Comment: Speci men Type: URINE SPECIMEN Ordering Facility: [facility] Address: [address] [place] [address] Performed By: #### 6 304, 71207-4 #### [facility] CLIA [id number] [address] [place] Urea nitrogen [Mass/Vol] 6 mg/dL Low 7-21 [facility] Comment on above: Order Comment: Speci men Type: URINE SPECIMEN [facility]ing [facility]: [facility] Address: [address] [place] [address] Performed By: #### 6 30-4, 70817-1 #### [facility] CLIA [id number] [address] OF [place] MRI ABDOMEN WO IVCONon 04-27 MRI ABDOMEN WO IVCON * * *Final Report* * * DATE OF EXAM: Apr 27 2025 4:56PM [facility] 0688 - MRI ABDOMEN WO IVCON / [...] Please order dedicated anatomy imaging if necessary. Pharmacy Service Associate[facility] Transcribe Date/Time: Apr 28 2025 7:43A Dictated by : PRETTY ABDALLA MD This examination was interpreted and the report reviewed and electronically signed by: PRETTY ABDALLA MD on Apr 28 2025 8:29AM EST [id number] Normal [facility] MRI PELVIS BLADDER WO IVCONo n 04-27-2025 MRI PELVIS BLADDER WO IVCON * * *Final Report* * * DATE OF EXAM: Apr 27 2025 4:56PM [facility] 0771 - MRI PELVIS BLADDER WO IVCON [...] Please order dedicated anatomy imaging if necessary. Pharmacy Service Associate: [facility] Transcribe Date/Time: Apr 28 2025 7:43A Dictated by : PRETTY ABDALLA MD This examination was interpreted and the report reviewed and electronically signed by: PRETTY ABDALLA MD on Apr 28 2025 8:29AM EST [id number] Normal [facility] CBC panel Auto (Bld)on 04-26 Erythrocyte distribution width (RBC) [Ratio] 16.7 % High 11.5-15.0 [facility] Comment on above: Order Comment: Speci men Type: URINE SPECIMEN Ordering Facility: [facility] Address: [address] [place] [address] Performed By: #### 6 30-4, 09988-1 #### [facility] [facility] CLIA [id number] 1 [place] [address] [place] [facility] Hematocrit (Bld) [Volume fraction] 32.9 % Low 36.0-46.0 [facility] Comment on above: Order Comment: Speci men Type: URINE SPECIMEN Ordering Facility: [facility] Address: [address] [place] [address] Performed By: #### 6 30-4, 95794-9 #### [facility] CLIA [id number] [address] Hemoglobin (Bld) [Mass/Vol] 10.5 g/dL Low 11.5-15.5 [facility] Comment on above: Order Comment: Speci men Type: URINE SPECIMEN Ordering Facility: [facility] Address: [address] [place] [address] Performed By: #### 6 30, 45680-6 #### [facility] CLIA [id number] [address] MCH (RBC) [Entitic mass] 27.2 pg Normal 26.0-34.0 [facility] Comment on above: Order Comment: Speci men Type: URINE SPECIMEN Ordering Facility: [facility] Address: [address] [place] [address] Performed By: #### 6 , 92484-4 #### [facility] CLIA [id number] [address] MCHC (RBC) [Mass/Vol] 31.9 g/dL Normal 30.5-36.0 [facility] Comment on above: Order Comment: Speci men Type: URINE SPECIMEN Ordering Facility: [facility] Address: [address] [place] [address] Performed By: #### 6 30, 70188-2 #### [facility] CLIA [id number] [address] STATES OF [facility] MCV (RBC) [Entitic vol] 85.2 fL Normal 80.0-100.0 [facility] Comment on above: Order Comment: Speci men Type: URINE SPECIMEN Ordering Facility: [facility] Address: [address] [place] [address] Performed By: #### 6 304, 07607-2 #### [facility] CLIA [id number] [address] OF [facility] Nucleated RBC (Bld) [#/Vol] 10*3/uL Normal <0.01 [facility] Comment on above: Order Comment: Speci men Type: URINE SPECIMEN Ordering Facility: [facility] Address: [address] [place] [address] Performed By: #### 6 30-4, 70357-1 #### [facility] CLIA [id number] [address] OF [place] Platelet mean volume (Bld) [Entitic vol] 10.0 fL Normal 9.0-12.7 [facility] Comment on above: Order Comment: Speci men Type: URINE SPECIMEN Ordering Facility: [facility] Address: [address] [place] [address] Performed By: #### 6 30-4, 77525-0 #### [facility] CL[facility] [id number] [address] STATES OF [place] Platelets (Bld) [#/Vol] 317 10*3/uL Normal 150-400 [facility] Comment on above: Order Comment: Speci men Type: URINE SPECIMEN Ordering Facility: [facility] Address: [address] [place] [address] Performed By: #### 6 30-4, 67679-2 #### [facility] CLIA [id number] [address] [place] [address] [place] RBC (Bld) [#/Vol] 3.86 10*6/uL Low 3.90-5.20 [facility] Comment on above: Order Comment: Speci men Type: URINE SPECIMEN Ordering Facility: [facility] Address: [address] [place] [address] Performed By: #### 6 30-4, 39164-1 #### [facility] CLIA [id number] [address] [place] [address] [place] WBC (Bld) [#/Vol] 7.13 10*3/uL Normal 3.70-11.00 [facility] Comment on above: Order Comment: Speci men Type: URINE SPECIMEN Ordering Facility: [facility] Address: [address] [place] [address] Performed By: #### 6 30-4, 31400-4 #### [facility] CLIA [id number] [address] STATES OF [facility] CONSULT Berta 04-26-2025 CONSULT GURPREET HNO ID: [id number] Author: ROCKY NUNES RPh Service: Pharmacy Author [...] have any questions, [place] [phone]. Age: [age] year old Allergies: ALLERGIES Allergen [...] Vancomycin Levels: No results found for: PADMINI Nunes, [facility] Normal [facility] Comprehensive metabolic 2000 panelon 04-26-2025 Albumin [Mass/Vol] 3.3 g/dL Low 3.9-4.9 [facility] Comment on above: Order Comment: Speci men Type: BLOOD SPECIMEN Ordering Facility: [facility] Address: [address] [place] [address] Performed By: #### 4 5066-8, 81100-1 #### [facility] CLIA [id number] [address] OF [facility] ALP [Catalytic activity/Vol] 79 U/L Normal 34-123 [facility] Comment on above: Order Comment: Speci men Type: BLOOD SPECIMEN Ordering Facility: [facility] Address: [address] [place] [address] Performed By: #### 4 5066-8, 38642-9 #### [facility] CLIA [id number] [address] STATES OF [facility] ALT With P-5'-P [Catalytic activity/Vol] 25 U/L Normal 7-38 [facility] Comment on above: Order Comment: Speci men Type: BLOOD SPECIMEN Ordering Facility: [facility] Address: [address] [place] [address] Performed By: #### 4 5066-8, 85381-2 #### [facility] CLIA [id number] [address] Anion gap [Moles/Vol] 13 mmol/L Normal 8-15 [facility] Comment on above: Order Comment: Speci men Type: BLOOD SPECIMEN Ordering Facility: [facility] Address: [address] [place] [address] Performed By: #### 4 5066-8, 70260-5 #### [facility] CLIA [id number] [address] AST With P-5'-P [Catalytic activity/Vol] 16 U/L Normal 13-35 [facility] Comment on above: Order Comment: Speci men Type: BLOOD SPECIMEN Ordering Facility: [facility] Address: [facility] [place] [address] Performed By: #### 4 5066-8, 66151-8 #### [facility] CLIA [id number] [address] STATES OF [place] Bilirubin [Mass/Vol] 0.2 mg/dL Normal 0.2-1.3 [facility] Comment on above: Order Comment: Speci men Type: BLOOD SPECIMEN Ordering Facility: [facility] Address: [address] [place] [address] Performed By: #### 4 5066-8, 01527-5 #### [facility] CLIA [id number] [address] Calcium [Mass/Vol] 9.0 mg/dL Normal 8.5-10.2 [facility] Comment on above: Order Comment: Speci men Type: BLOOD SPECIMEN Ordering Facility: [facility] Address: [address] [place] [address] Performed By: #### 4 5066-8, 11928-7 #### [facility] CLIA [id number] [address] STATES [place] Chloride [Moles/Vol] 104 mmol/L Normal 98-107 [facility] Comment on above: Order Comment: Speci men Type: BLOOD SPECIMEN Ordering Facility: [facility] Address: [address] [place] [address] Performed By: #### 4 5066-8, 98467-2 #### [facility] CLIA [id number] [address] [place] CO2 [Moles/Vol] 21 mmol/L Low 22-30 [facility] Comment on above: Order Comment: George grimes Type: BLOOD SPECIMEN Ordering Facility: [facility] Address: [address] [place] [address] Performed By: #### 4 5066-8, 93183-4 #### [facility] CLIA [id number] [address] STATES OF [place] Creatinine [Mass/Vol] 0.66 mg/dL Normal 0.58-0.96 [facility] Comment on above: Order Comment: Speci men Type: BLOOD SPECIMEN Ordering Facility: [facility] Address: [address] [place] [address] Performed By: #### 4 5066-8, 37163-8 #### [facility] CLIA [id number] [address] Creatinine and Glomerular filtration rate.predicted panel (S/P/Bld) 123 mL/min/1.73m??? Normal >=60 [facility] Comment on above: Order Comment: Koreyi men Type: BLOOD SPECIMEN Ordering Facility: [facility] Address: [address] [place] [address] Result Comment: Yeimy mated Glomerular Filtration Rate [...] actual GFR. Performed By: #### 4 5066-8, 47928-0 #### [facility] CLIA [id number] [address] OF [place] Glucose [Mass/Vol] 78 mg/dL Normal 74-99 [facility] Comment on above: Order Comment: Koreyi cornelio Type: BLOOD SPECIMEN Ordering Facility: [facility] Address: [address] [place] [address] Result Comment: The [place] [employer] (ADA) provides guidance for cutoff [...] Standards of Medical Care in Diabetes 2016, [place] [employer]. Diabetes Care. 2016.39(Suppl 1). Performed By: #### 4 5066-8, 57191-4 #### [facility] CLIA [id number] [address] [place] [address] [place] Potassium [Moles/Vol] 3.8 mmol/L Normal 3.7-5.1 [facility] Comment on above: Order Comment: George grimes Type: BLOOD SPECIMEN Ordering Facility: [facility] Address: [address] [place] [address] Performed By: #### 4 5066-8, 61813-2 #### [facility] CLIA [id number] [address] [place] [address] [place] Protein [Mass/Vol] 6.0 g/dL Low 6.3-8.0 [facility] Comment on above: Order Comment: George grimes Type: BLOOD SPECIMEN Ordering Facility: [facility] Address: [address] [place] [address] Performed By: #### 4 5066-8, 99704-6 #### [facility] CLIA [id number] [address] [place] [address] [place] Sodium [Moles/Vol] 138 mmol/L Normal 136-144 [facility] Comment on above: Order Comment: George grimes Type: BLOOD SPECIMEN Ordering Facility: [facility] Address: [address] [place] [address] Performed By: #### 4 5066-8, 63630-9 #### [facility] CLIA [id number] [address] [place] [address] Urea nitrogen [Mass/Vol] 6 mg/dL Low 7-21 [facility] Comment on above: Order Comment: George grimes Type: BLOOD SPECIMEN Ordering Facility: [facility] Address: [address] [place] [address] Performed By: #### 4 5066-8, 32236-2 #### [facility] CLIA [id number] [address] Creatinine + eGFR Pnl SerPlB ldon 04-26-2025 Creatinine and Glomerular filtration rate.predicted panel (S/P/Bld) 125 mL/min/1.73m??? Normal >=60 [facility] Comment on above: Order Comment: George grimes Type: BLOOD SPECIMEN Ordering Facility: [facility] Address: [address] [place] [address] Result Comment: Yeimy mated Glomerular Filtration Rate [...] actual GFR. Performed By: #### 4 5066-8, 59574-3 #### [facility] CLIA [id number] [address] Creatinine and Glomerular fi ltration rate.predicted panel (S/P/Bld)on 04-26-2025 Creatinine [Mass/Vol] 0.63 mg/dL Normal 0.58-0.96 [facility] Comment on above: Order Comment: George grimes Type: BLOOD SPECIMEN Ordering Facility: [facility] Address: [address] [place] [address] Performed By: #### 4 5066-8, 12379-8 #### [facility] CLIA [id number] [address] CBC panel Auto (Bld)on 04-25 Erythrocyte distribution width (RBC) [Ratio] 16.5 % High 11.5-15.0 [facility] Comment on above: Order Comment: Speci men Type: URINE SPECIMEN Ordering Facility: [facility] Address: [facility] [place] [address] Performed By: #### 6 30-4, 02297-2 #### [facility] CLIA [id number] [address] OF [facility] Hematocrit (Bld) [Volume fraction] 30.7 % Low 36.0-46.0 [facility] Comment on above: Order Comment: Speci men Type: URINE SPECIMEN Ordering Facility: [facility] Address: [address] [place] [address] Performed By: #### 6 30-4, 72000-0 #### [facility] CL[facility] [id number] [address] OF [facility] Hemoglobin (Bld) [Mass/Vol] 10.2 g/dL Low 11.5-15.5 [facility] Comment on above: Order Comment: Speci men Type: URINE SPECIMEN Ordering Facility: [facility] Address: [address] [place] [address] Performed By: #### 6 30-4, 05345-6 #### [facility] CLIA [id number] [address] STATES OF [facility] MCH (RBC) [Entitic mass] 27.8 pg Normal 26.0-34.0 [facility] Comment on above: Order Comment: Speci men Type: URINE SPECIMEN Ordering Facility: [facility] Address: [address] [place] [address] Performed By: #### 6 30-4, 60879-7 #### [facility] CLIA [id number] [address] OF [facility] MCHC (RBC) [Mass/Vol] 33.2 g/dL Normal 30.5-36.0 [facility] Comment on above: Order Comment: Speci men Type: URINE SPECIMEN Ordering Facility: [facility] Address: [address] [place] [address] Performed By: #### 6 30-4, 69300-9 #### [facility] CLIA [id number] [address] [place] MCV (RBC) [Entitic vol] 83.7 fL Normal 80.0-100.0 [facility] Comment on above: Order Comment: Speci men Type: URINE SPECIMEN Ordering Facility: [facility] Address: [address] [place] [address] Performed By: #### 6 30-4, 64334-2 #### [facility] CLIA [id number] [address] OF [place] Nucleated RBC (Bld) [#/Vol] 10*3/uL Normal <0.01 [facility] Comment on above: Order Comment: Speci men Type: URINE SPECIMEN Ordering Facility: [facility] Address: [address] [place] [address] Performed By: #### 6 30-4, 89951-4 #### [facility] CLIA [id number] [address] Platelet mean volume (Bld) [Entitic vol] 10.0 fL Normal 9.0-12.7 [facility] Comment on above: Order Comment: Speci men Type: URINE SPECIMEN Ordering Facility: [facility] Address: [address] [place] [address] Performed By: #### 6 30-4, 05244-1 #### [facility] CLIA [id number] [address] [place] Platelets (Bld) [#/Vol] 338 10*3/uL Normal 150-400 [facility] Comment on above: Order Comment: Speci men Type: URINE SPECIMEN Ordering Facility: [facility] Address: [address] [place] [address] Performed By: #### 6 30-4, 84916-2 #### [facility] CLIA [id number] [address] [place] RBC (Bld) [#/Vol] 3.67 10*6/uL Low 3.90-5.20 [facility] Comment on above: Order Comment: Speci men Type: URINE SPECIMEN Ordering Facility: [facility] Address: [address] [place] [address] Performed By: #### 6 30-4, 96613-3 #### [facility] CLIA [id number] [address] WBC (Bld) [#/Vol] 8.64 10*3/uL Normal 3.70-11.00 [facility] Comment on above: Order Comment: Speci men Type: URINE SPECIMEN Ordering Facility: [facility] Address: [address] [place] [address] Performed By: #### 6 30-4, 72598-2 #### [facility] CLIA [id number] [address] TYPE + SCREEN PRENATALon ABO O Normal [facility] Comment on above: Order Comment: Speci men Type: BLOOD SPECIMENOrdering Facility: [facility] Address: [address] [place] [address] Performed By: #### T SPN ####[facility] [id number] [address] Rh Nom (Bld) Positive Normal [facility] Comment on above: Order Comment: Speci men Type: BLOOD SPECIMENOrdering Facility: [facility] Address: [address] [place] [address] Performed By: #### T SPN ####[facility] [id number] [address] TYPE AND SCREEN EXPIRATION 04/28/2025 23:59 Normal [facility] Comment on above: Order Comment: Speci men Type: BLOOD SPECIMENOrdering Facility: [facility] Address: [address] [place] [address] Performed By: #### T SPN ####[facility] BANKCLIA [id number] [address] OF [place] ALLIED HEALTHon 04-24-2025 ALLIED HEALTH HNO ID: [id number] Author: JEREMY TREJO RT(R) Service: Radiology Author Type: Technologist Type: Allied [...] DATA: Inpatient: see LDA documentation SIGNED BY: KELLEE aBbin) [facility] April 24, 2025 6:39 PM Normal [facility] Bacteria Ur Culton Bacteria identified Cx Nom [...] , Intermediate >32 , Resistant >64 Abnormal [facility] Comment on above: Performed By: #### 6 30-4, 56181-0 #### [facility] CLIA [id number] [address] [place] CBC panel Auto (Bld)on 04-24 Erythrocyte distribution width (RBC) [Ratio] 16.6 % High 11.5-15.0 [facility] Comment on above: Order Comment: George grimes Type: BLOOD SPECIMENOrdering Facility: [facility] Address: [address] [place] [address] Performed By: #### 6 30-4, 17691-0 #### [facility] CLIA [id number] [address] [place] [address] [place] Hematocrit (Bld) [Volume fraction] 35.4 % Low 36.0-46.0 [facility] Comment on above: Order Comment: Speci cornelio Type: BLOOD SPECIMENOrdering Facility: [facility] Address: [address] [place] [address] Performed By: #### 6 30-4, 47161-9 #### [facility] CLIA [id number] [address] [place] Hemoglobin (Bld) [Mass/Vol] 11.3 g/dL Low 11.5-15.5 [facility] Comment on above: Order Comment: Speci men Type: BLOOD SPECIMENOrdering Facility: [facility] Address: [address] [place] [address] Performed By: #### 6 30-4, 65640-3 #### [facility] CLIA [id number] [address] MCH (RBC) [Entitic mass] 27.2 pg Normal 26.0-34.0 [facility] Comment on above: Order Comment: Speci men Type: BLOOD SPECIMENOrdering Facility: [facility] Address: [address] [place] [address] Performed By: #### 6 30-4, 35235-5 #### [facility] CLIA [id number] [address] MCHC (RBC) [Mass/Vol] 31.9 g/dL Normal 30.5-36.0 [facility] Comment on above: Order Comment: Speci men Type: BLOOD SPECIMENOrdering Facility: [facility] Address: [address] [place] [address] Performed By: #### 6 30, 38427-1 #### [facility] CLIA [id number] [address] MCV (RBC) [Entitic vol] 85.3 fL Normal 80.0-100.0 [facility] Comment on above: Order Comment: Speci men Type: BLOOD SPECIMENOrdering Facility: [facility] Address: [address] [place] [address] Performed By: #### 6 30-4, 28743-9 #### [facility] CLIA [id number] [address] Nucleated RBC (Bld) [#/Vol] 10*3/uL Normal <0.01 [facility] Comment on above: Order Comment: Speci men Type: BLOOD SPECIMENOrdering Facility: [facility] Address: [address] [place] [address] Performed By: #### 6 30-4, 90620-6 #### [facility] CLIA [id number] [address] Platelet mean volume (Bld) [Entitic vol] 9.9 fL Normal 9.0-12.7 [facility] Comment on above: Order Comment: Speci men Type: BLOOD SPECIMENOrdering Facility: [facility] Address: [address] [place] [address] Performed By: #### 6 30-4, 09323-3 #### [facility] CLIA [id number] [address] Platelets (Bld) [#/Vol] 381 10*3/uL Normal 150-400 [facility] Comment on above: Order Comment: Speci men Type: BLOOD SPECIMENOrdering Facility: [facility] Address: [address] [place] [address] Performed By: #### 6 30-4, 05849-8 #### [facility] CLIA [id number] [address] RBC (Bld) [#/Vol] 4.15 10*6/uL Normal 3.90-5.20 [facility] Comment on above: Order Comment: Speci men Type: BLOOD SPECIMENOrdering Facility: [facility] Address: [address] [place] [address] Performed By: #### 6 30-4, 31868-1 #### [facility] CLIA [id number] [address] WBC (Bld) [#/Vol] 10.39 10*3/uL Normal 3.70-11.00 [facility] Comment on above: Order Comment: Speci men Type: BLOOD SPECIMENOrdering Facility: [facility] Address: [address] [place] [address] Performed By: #### 6 30-4, 26397-5 #### [facility] CLIA [id number] [address] ED Triage Noteon 04-24-2025 ED Triage Note HNO ID: [id number] Author: MARIA ELENA THOMPSON PA-C Service: Emergency Medicine Author Type: Physician [employer] Type: ED Triage Notes Filed: 04/24/2025 15:27 [...] Peralta, will send to OB triage. SIGNATURE: Maria Elena Thompson PA-C Normal [facility] HISTORY PHYSICALon HISTORY PHYSICAL HNO ID: [id number] Author: RADHA CAMPBELL MD Service: Maternal Medicine Author Type: Resident Type: H&P Filed: 04/25/2025 10:03 Note Text: Attestation signed by Radha Campbell MD at 04/25/2025 10:03 AM Maternal- [...] improved, afebrile and able to tolerate po. Radha Campbell MD OBSTETRICS HISTORY AND PHYSICAL SERVICE [...] representation after recent admission, patient admitted to [facility] service for pain control and suspected kidney [...] Problems Maternal (more content not included)... Normal [facility] US KIDNEY/BLADDERon 04-24-20 25 US KIDNEY/BLADDER * * *Final Report* * * DATE OF EXAM: Apr 24 2025 7:04PM [facility] 1055 - US KIDNEY/BLADDER / PROCEDURE REASON: [...] Normal sonographic appearance of kidneys and bladder. Pharmacy Service Associate: BALTAZAR Transcribe Date/Time: Apr 24 2025 9:22P Dictated by : YO GOOD MD This examination was interpreted and the report reviewed and electronically signed by: YO GOOD MD on Apr 24 2025 9:24PM EST [id number] Normal [facility] Urinalysis complete panel (U )on 04-24-2025 Bacteria LM.HPF (Urine sed) [#/Area] Few Abnormal None Seen [facility] Comment on above: Order Comment: Speci men Type: URINE SPECIMEN Ordering Facility: [facility] Address: [address] [place] [address] Performed By: #### 6 30-4, 71118-4 #### [facility] CLIA [id number] [address] [place] Bilirubin Ql (U) Negative Normal Negative [facility] Comment on above: Order Comment: Speci men Type: URINE SPECIMEN Ordering Facility: [facility] Address: [address] [place] [address] Performed By: #### 6 30-4, 96679-4 #### [facility] CLIA [id number] [address] [place] Clarity (Unsp spec) Turbid Abnormal Clear [facility] Comment on above: Order Comment: Speci men Type: URINE SPECIMEN Ordering Facility: [facility] Address: [address] [place] [address] Performed By: #### 6 30-4, 65459-3 #### [facility] CLIA [id number] [address] [place] Color (U) Yellow Normal yellow [facility] Comment on above: Order Comment: Speci men Type: URINE SPECIMEN Ordering Facility: [facility] Address: [address] [place] [address] Performed By: #### 6 30-4, 15536-7 #### [facility] CLIA [id number] [address] Epithelial cells LM.HPF (Urine sed) [#/Area] Few Normal [facility] Comment on above: Order Comment: Speci men Type: URINE SPECIMEN Ordering Facility: [facility] Address: [address] [place] [address] Performed By: #### 6 30-4, 61062-3 #### [facility] CLIA [id number] [address] Glucose Test strip (U) [Mass/Vol] Negative Normal Trace, Negative [facility] Comment on above: Order Comment: Speci men Type: URINE SPECIMEN Ordering Facility: [facility] Address: [address] [place] [address] Performed By: #### 6 30, 11396-6 #### [facility] CLIA [id number] [address] [place] Hemoglobin Ql (U) Negative Normal Negative, Trace [facility] Comment on above: Order Comment: Speci men Type: URINE SPECIMEN Ordering Facility: [facility] Address: [address] [place] [address] Performed By: #### 6 30-4, 83815-1 #### [facility] CLIA [id number] [address] [place] Ketones Ql (U) Trace Normal Negative, Trace [facility] Comment on above: Order Comment: Speci men Type: URINE SPECIMEN Ordering Facility: [facility] Address: [address] [place] [address] Performed By: #### 6 30-4, 68865-5 #### [facility] CLIA [id number] [address] [place] Leukocyte esterase Test strip Ql (U) 500 Komal/uL Abnormal Negative, 25 Komal/uL [facility] Comment on above: Order Comment: Speci men Type: URINE SPECIMEN Ordering Facility: [facility] Address: [address] [place] [address] Performed By: #### 6 30-4, 62228-9 #### [facility] CLIA [id number] [address] [place] Nitrite Ql (U) Negative Normal Negative [facility] Comment on above: Order Comment: Speci men Type: URINE SPECIMEN Ordering Facility: [facility] Address: [address] [place] [address] Performed By: #### 6 30-4, 85077-5 #### [facility] CLIA [id number] [address] [place] pH (U) 6.0 [pH] Normal 5.0-8.0 [facility] Comment on above: Order Comment: Speci men Type: URINE SPECIMEN Ordering Facility: [facility] Address: [address] [place] [address] Performed By: #### 6 30-4, 81582-0 #### [facility] CLIA [id number] [address] Protein (U) [Mass/Vol] Trace Normal Trace , Negative [facility] Comment on above: Order Comment: Speci men Type: URINE SPECIMEN Ordering Facility: [facility] Address: [address] [place] [address] Performed By: #### 6 30-4, 56741-1 #### [facility] CLIA [id number] [address] [place] RBC LM.HPF (Urine sed) [#/Area] 11-25 /HPF Abnormal 0-3 /HPF [facility] Comment on above: Order Comment: Speci men Type: URINE SPECIMEN Ordering Facility: [facility] Address: [address] [place] [address] Performed By: #### 6 30-4, 20600-8 #### [facility] CLIA [id number] [address] [place] Specific gravity (U) [Rel density] 1.017 Normal 1.005-1.030 [facility] Comment on above: Order Comment: Speci men Type: URINE SPECIMEN Ordering Facility: [facility] Address: [address] [place] [address] Performed By: #### 6 30-4, 34470-2 #### [facility] CLIA [id number] [address] Urobilinogen Ql (U) Normal Normal Normal [facility] Comment on above: Order Comment: Speci men Type: URINE SPECIMEN Ordering Facility: [facility] Address: [address] [place] [address] Performed By: #### 6 30-4, 90388-6 #### [facility] CLIA [id number] [address] WBC LM.HPF (Urine sed) [#/Area] /[HPF] Abnormal 0-5 /HPF [facility] Comment on above: Order Comment: Speci men Type: URINE SPECIMEN Ordering Facility: [facility] Address: [address] [place] [address] Performed By: #### 6 30-4, 75108-1 #### [facility] CLIA [id number] [address] CNPMargo 04-23-2025 CNPN Telephone (OGFVWE) YOKASTA PRETTY ([id number]) 1995 F Date Time Provider Department 04/23/25 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 [facility] During your visit today, we recorded the following information about you: Katelynn Luciano RN 04/23/2025 2:13 PM Signed 2nd risk assessment form submitted 04/23/25 Katelynn Luciano RN Allergies As of Date: 04/23/2025 Noted Allergy Reaction HAMZAHFBon (ARIPIPRAZOLE) 03/05/2016 4 - Hives Date Reviewed: [...] Status:Closed by KATELYNN LUCIANO on 04/23/25 Normal [facility] Bacteria Ur Culton Bacteria identified Cx Nom (U) ORGANISM ID: 1 10,000 -<50,000 CFU/ml Normal urogenital kilo Normal [facility] Comment on above: Performed By: #### 6 30-4 ####[facility] [id number] [address] OF [facility] Adrienne 04-12-2025 CNPN Telephone (OBGYWM) YOKASTA PRETTY ([id number]) 1995 F Date Time Provider Department 04/12/25 JUDIT PIMENTEL During your visit today, we recorded the following information about you: Judit Pimentel APRN.FRANK 04/12/2025 7:44 AM Signed Patient admitted over weekend for pyleonephritis. Please schedule follow up this week with physician or blocking machine operator. Judit Pimentel APRN.Emma Gusman RN 04/12/2025 10:22 AM Signed Patient scheduled for 04/14. She requested that day. Emma Lundberg RN Allergies As of Date: 04/12/2025 [...] non-immune status, antepartum (HCC) [O0*03/16/2025 Dysuria in ([facility]) [O26.899, R30.0] 04/09/2025 04/10/2025 Pyelonephritis complicating , antepart*04/09/2025 20 weeks gestation of ([facility]) [Z3A.20] 04/10/2025 Elevated blood pressure reading in office witho*04/10/2025 Encounter Status:Closed by EMMA LUNDBERG on 04/12/25 Normal [facility] CNDSon 04-11-2025 [facility] HNO ID: [id number] Author: TAMMIE VASQUEZ MD Service: Obstetrics Author Type: Resident Type: Discharge Summary Filed: 04/11/2025 11:15 Note Text: Attestation signed by Tammie Vasquez MD at 04/11/2025 11:15 AM Attending Note Reviewed the discharge summary for this patient being cared for by the OB team and agree with its content and above plan of care unless otherwise indicated. Signature: Tammie Vasquez MD Date: April 11, 2025 Time: [...] Your Medications These medications were sent to [facility] - [place] [address] - [address] - [phone] [address] [place] [address] cephALEXin 500 mg capsule cephALEXin 500 mg [...] Problems Diagnosis POA Dysuria in (HCC) Yes PLAN OF CARE DISCUSSED WITH PROVIDER, RN, PATIENT SIGNATURE: Simeon Solis DO PATIENT NAME: Yokasta Pretty DATE: April 11, 2025 TIME: 9:01 AM [facility] HNO ID: [id number] Author: TAMMIE VASQUEZ MD Service: Obstetrics Author Type: Resident Type: Discharge Summary Filed: 04/11/2025 11:16 Note Text: Attestation signed by Tammie Vasquez MD at 04/11/2025 11:16 AM Attending Note Reviewed the discharge summary for this patient being cared for by the OB team and agree with its content and above plan of care unless otherwise indicated. Signature: Tammie Vasquez MD Date: April 11, 2025 Time: [...] Your Medications These medications were sent to [facility] - [place] [address] [address] - [phone] [address] [place] [address] cephALEXin 500 mg capsule cephALEXin 500 mg capsule oxyCODONE IR 5 mg immediate release tablet FINAL DIAGNOSIS: Pyelonephritis in Active Hospital Problems Diagnosis POA Pyelonephritis complicating , antepartum (HCC) Yes 20 weeks gestation of ([facility]) No Elevated blood pressure reading in office without diagnosis of hypertension No Anxiety disorder affecting , antepartum ([facility]) Yes Hypothyroidism affecting in second trimester ([facility]) Yes Obesity affecting in second trimester ([facility]) Yes Resolved Hospital Problems Diagnosis POA Dysuria in ([facility]) Yes Plan of care discussed with Provider, RN, Patient SIGNATURE: Oksana De La Rosa DO PATIENT NAME: Yokasta Pretty DATE: April 11, 2025 TIME: 7:13 AM Normal [facility] Bacteria Ur Culton Bacteria identified Cx Nom (U) CULTURE, URINE: 50,000-<100,000 CFU/ml Normal Urogenital Kilo Normal [facility] Comment on above: Performed By: #### 6 30-4 ####[facility] [id number] [address] OF [facility] CBC panel Auto (Bld)on 04-09 Erythrocyte distribution width (RBC) [Ratio] 16.4 % High 11.5-15.0 [facility] Comment on above: Order Comment: Speci men Type: BLOOD SPECIMENOrdering Facility: [facility] Address: [address] [place] [address] Performed By: #### 6 30-4, 75517-2 #### [facility] CLIA [id number] [address] OF [facility] Hematocrit (Bld) [Volume fraction] 33.8 % Low 36.0-46.0 [facility] Comment on above: Order Comment: Speci men Type: BLOOD SPECIMENOrdering Facility: [facility] Address: [address] [place] [address] Performed By: #### 6 30-4, 55554-2 #### [facility] CLIA [id number] [address] [place] Hemoglobin (Bld) [Mass/Vol] 10.6 g/dL Low 11.5-15.5 [facility] Comment on above: Order Comment: Speci men Type: BLOOD SPECIMENOrdering Facility: [facility] Address: [address] [place] [address] Performed By: #### 6 30-4, 41900-1 #### [facility] CLIA [id number] [address] [place] MCH (RBC) [Entitic mass] 26.8 pg Normal 26.0-34.0 [facility] Comment on above: Order Comment: Speci men Type: BLOOD SPECIMENOrdering Facility: [facility] Address: [address] [place] [address] Performed By: #### 6 30-4, 61838-2 #### [facility] CLIA [id number] [address] MCHC (RBC) [Mass/Vol] 31.4 g/dL Normal 30.5-36.0 [facility] Comment on above: Order Comment: Speci men Type: BLOOD SPECIMENOrdering Facility: [facility] Address: [address] [place] [address] Performed By: #### 6 30-4, 60476-5 #### [facility] CLIA [id number] [address] MCV (RBC) [Entitic vol] 85.6 fL Normal 80.0-100.0 [facility] Comment on above: Order Comment: Speci men Type: BLOOD SPECIMENOrdering Facility: [facility] Address: [address] [place] [address] Performed By: #### 6 30-4, 72859-6 #### [facility] CLIA [id number] [address] Nucleated RBC (Bld) [#/Vol] 10*3/uL Normal <0.01 [facility] Comment on above: Order Comment: Speci men Type: BLOOD SPECIMENOrdering Facility: [facility] Address: [address] [place] [address] Performed By: #### 6 30-4, 73903-7 #### [facility] CLIA [id number] [address] Platelet mean volume (Bld) [Entitic vol] 9.8 fL Normal 9.0-12.7 [facility] Comment on above: Order Comment: Speci men Type: BLOOD SPECIMENOrdering Facility: [facility] Address: [address] [place] [address] Performed By: #### 6 30-4, 36036-0 #### [facility] CLIA [id number] [address] [place] Platelets (Bld) [#/Vol] 359 10*3/uL Normal 150-400 [facility] Comment on above: Order Comment: Speci men Type: BLOOD SPECIMENOrdering Facility: [facility] Address: [address] [place] [address] Performed By: #### 6 30-4, 17924-9 #### [facility] CLIA [id number] [address] OF [facility] RBC (Bld) [#/Vol] 3.95 10*6/uL Normal 3.90-5.20 [facility] Comment on above: Order Comment: Speci men Type: BLOOD SPECIMENOrdering Facility: [facility] Address: [address] [place] [address] Performed By: #### 6 30-4, 45512-8 #### [facility] CLIA [id number] [address] WBC (Bld) [#/Vol] 7.96 10*3/uL Normal 3.70-11.00 [facility] Comment on above: Order Comment: Speci men Type: BLOOD SPECIMENOrdering Facility: [facility] Address: [address] [place] [address] Performed By: #### 6 30-4, 15289-4 #### [facility] CLIA [id number] [address] ED Triage Noteon 04-09-2025 ED Triage Note HNO ID: [id number] Author: NATASHA WOLFE PA-C Service: Emergency Medicine Author Type: Physician Tube [employer] Type: ED Triage Notes Filed: 04/09/2025 18:36 Note Text: ED TRIAGE PROVIDER NOTE Patient Name: Yokasta Pretty Service Date: 04/09/25 Provider in triage As provider in triage my care is limited to quick assessment and initiation of any orders able to be performed during triage. BRIEF HPI: This is a 29 year old female who presents to the ED sent from her [facility] for concerns with possible kidney stone or [...] OB attending-To OB triage SIGNATURE: ALPESH Chambers [facility] HISTORY PHYSICALon HISTORY PHYSICAL HNO ID: [id number] Author: TAMMIE VASQUEZ MD Service: Maternal Medicine Author Type: Resident Type: H&P Filed: 04/10/2025 13:31 Note Text: Attestation signed by Tammie Vasquez MD at 04/10/2025 1:31 PM MFM Attending Note I have reviewed the progress note obtained and documented by the resident and I personally participated in the chou components. I have discussed the case and management of the patient's care. I agree with the resident's findings and plan of care as documented below. Tammie Vasquez MD MATERNAL MEDICINE HISTORY AND PHYSICAL [...] two times (more content not included)... Normal [facility] URINALYSIS, REFLEX MICROSCOP ICon 04-09-2025 Bacteria LM.HPF (Urine sed) [#/Area] Moderate Abnormal None Seen [facility] Comment on above: Order Comment: Speci men Type: URINE SPECIMEN Ordering Facility: [facility] Address: [address] [place] [address] Performed By: #### 6 30-4, 93056-9 #### [facility] CLIA [id number] [address] Bilirubin Ql (U) Negative Normal Negative [facility] Comment on above: Order Comment: Speci men Type: URINE SPECIMEN Ordering Facility: [facility] Address: [facility] [place] [address] Performed By: #### 6 30-4, 99578-3 #### [facility] CLIA [id number] [address] Clarity (Unsp spec) Turbid Abnormal Clear [facility] Comment on above: Order Comment: Speci men Type: URINE SPECIMEN Ordering Facility: [facility] Address: [address] [place] [address] Performed By: #### 6 30-4, 11169-3 #### [facility] CLIA [id number] [address] Color (U) Yellow Normal yellow [facility] Comment on above: Order Comment: Speci men Type: URINE SPECIMEN Ordering Facility: [facility] Address: [address] [place] [address] Performed By: #### 6 304, 87385-7 #### [facility] CLIA [id number] [address] Epithelial cells LM.HPF (Urine sed) [#/Area] Few Normal [facility] Comment on above: Order Comment: Speci men Type: URINE SPECIMEN Ordering Facility: [facility] Address: [address] [place] [address] Performed By: #### 6 30-4, 09223-1 #### [facility] CLIA [id number] [address] Glucose Test strip (U) [Mass/Vol] Negative Normal Trace, Negative [facility] Comment on above: Order Comment: Speci men Type: URINE SPECIMEN Ordering Facility: [facility] Address: [address] [place] [address] Performed By: #### 6 30-4, 94260-6 #### [facility] CLIA [id number] [address] [place] Hemoglobin Ql (U) Negative Normal Negative, Trace [facility] Comment on above: Order Comment: Speci men Type: URINE SPECIMEN Ordering Facility: [facility] Address: [address] [place] [address] Performed By: #### 6 30-4, 40686-8 #### [facility] CLIA [id number] [address] OF [facility] Ketones Ql (U) Negative Normal Negative, Trace [facility] Comment on above: Order Comment: Speci men Type: URINE SPECIMEN Ordering Facility: [facility] Address: [address] [place] [address] Performed By: #### 6 30-4, 69168-8 #### [facility] CLIA [id number] [address] Leukocyte esterase Test strip Ql (U) 500 Komal/uL Abnormal Negative, 25 Komal/uL [facility] Comment on above: Order Comment: Speci men Type: URINE SPECIMEN Ordering Facility: [facility] Address: [address] [address] Performed By: #### 6 30-4, 28652-0 #### [facility] CLIA [id number] [address] Nitrite Ql (U) Negative Normal Negative [facility] Comment on above: Order Comment: Speci men Type: URINE SPECIMEN Ordering Facility: [facility] Address: [address] [place] [address] Performed By: #### 6 30-4, 08843-2 #### [facility] CLIA [id number] [address] [place] pH (U) 6.5 [pH] Normal 5.0-8.0 [facility] Comment on above: Order Comment: Speci men Type: URINE SPECIMEN Ordering Facility: [facility] Address: [address] [place] [address] Performed By: #### 6 30-4, 54413-3 #### [facility] CLIA [id number] [address] Protein (U) [Mass/Vol] Trace Normal Trace , Negative [facility] Comment on above: Order Comment: Speci men Type: URINE SPECIMEN Ordering Facility: [facility] Address: [address] [place] [address] Performed By: #### 6 30-4, 96146-9 #### [facility] CLIA [id number] [address] RBC LM.HPF (Urine sed) [#/Area] 6-10 /HPF Abnormal 0-3 /HPF [facility] Comment on above: Order Comment: Speci men Type: URINE SPECIMEN Ordering Facility: [facility] Address: [address] [place] [address] Performed By: #### 6 30-4, 46759-3 #### [facility] CLIA [id number] [address] Specific gravity (U) [Rel density] 1.021 Normal 1.005-1.030 [facility] Comment on above: Order Comment: Speci men Type: URINE SPECIMEN Ordering Facility: [facility] Address: [address] [place] [address] Performed By: #### 6 30-4, 51942-0 #### [facility] CLIA [id number] [address] Urobilinogen Ql (U) Normal Normal Normal [facility] Comment on above: Order Comment: Speci men Type: URINE SPECIMEN Ordering Facility: [facility] Address: [address] [place] [address] Performed By: #### 6 30-4, 98687-7 #### [facility] CLIA [id number] [address] WBC LM.HPF (Urine sed) [#/Area] 11-25 /HPF Abnormal 0-5 /HPF [facility] Comment on above: Order Comment: Speci men Type: URINE SPECIMEN Ordering Facility: [facility] Address: [address] [place] [address] Performed By: #### 6 30-4, 71194-8 #### [facility] CLIA [id number] [address] OF [facility] US KIDNEY/BLADDERon 04-09-20 25 US KIDNEY/BLADDER * * *Final Report* * * DATE OF EXAM: Apr 09 2025 10:10PM [facility] 1055 - US KIDNEY/BLADDER / PROCEDURE REASON: [...] Partially visualized gravid uterus. IMPRESSION: No hydronephrosis. Pharmacy Service Associate[facility] Transcribe Date/Time: Apr 09 2025 10:52P Dictated by : MERRITT CAVAZOS MD This examination was interpreted and the report reviewed and electronically signed by: MERRITT CAVAZOS MD on Apr 09 2025 10:58PM EST [id number] Normal [facility] Bacteria Ur Culton Bacteria identified Cx Nom (U) ORGANISM ID: 1 10,000 -<50,000 CFU/ml Normal urogenital kilo Normal [facility] Comment on above: Performed By: #### 6 30-4 ####[facility] [id number] [address] STATES OF [facility] Examination level ultrasound on 04-08-2025 Indication Detailed [...] 14 oz EFW by: Hadlock (HC-AC-FL) Extended Supervisor Engine Assembly 6.7 mm CM 7.0 mm 93% Nicolaides [...] normal LVOT view: normal 3-vessel view: normal 4-oddkub-xggwrnf view: normal Heart / Thorax Situs: situs [...] ovary: Visualized Lt ovary: Visualized Performed By: Kalyn Aponte RDMS, RVT Read By: Ping Sotomayor M.D. MATERNAL MEDICINE [facility] Radiology Study observation (narrative) Jessica wade [facility] T4 Free SerPl-mCncon 025 Free T4 [Mass/Vol] 0.7 ng/dL Low 0.9-1.7 [facility] Comment on above: Order Comment: Speci men Type: BLOOD SPECIMENOrdering Facility: [facility] Address: [address] [place] [address] Performed By: #### 3 016-3, 3024-7 ####[facility] [id number] [place] [address] [place] TSH SerPl-aCncon 04-08-2025 TSH Qn 6.230 m[IU]/L High 0.270-4.200 [facility] [place] Comment on above: Order Comment: Speci men Type: BLOOD SPECIMENOrdering Facility: [facility] Address: [address] [place] [address] Result Comment: If t he patient is , TSH reference range varies by gestational period: First Trimester (weeks 9-12): 0.180-2.990 mIU/L Second Trimester: 0.110-3.980 mIU/L Third Trimester: 0.480-4.710 mIU/L Tonny Isaac et al. A Practical Approach for the Verifications and Determination of Site- and Trimester-Specific Reference Intervals for Thyroid Function tests in . Thyroid, 2019:29:3:412-420. Ronak E, et al. 2017 Guidelines of the [place] Thyroid Association for the Diagnosis and Management of Thyroid Disease during and the . Thyroid, 2017:27:3:315-389. Performed By: #### 3 016-3, 3024-7 ####[facility] [id number] [place] [address] [place] UA DIP, URINE (POC)on 2024 BILIRUBIN UA (POCT) Negative Negative [facility] CLARITY UA (POCT) Cloudy [facility] COLOR UA (POCT) Dark yellow [facility] GLUCOSE UA (POCT) Negative Negative mg/dL [facility] Hemoglobin Ql (U) Trace-intact Abnormal Negative [facility] Interpretation and review of laboratory results Abnormal [facility] KETONE UA (POCT) Negative Negative mg/dL [facility] LEUKOCYTES UA (POCT) Large Abnormal Negative [facility] NITRITE UA (POCT) Negative Negative [facility] PH UA (POCT) 6 4.5 - 8.0 [facility] Protein Ql (U) 30 mg/dL Abnormal Negative [facility] SPECIFIC GRAVITY UA (POCT) 1.025 1.005 - 1.030 [facility] UROBILINOGEN UA (POCT) 0.2 Normal E.U./d L [facility] Location:[facility], [address] [place] [address] POINT OF CARE [facility] Bacteria Ur Culton 5 Bacteria identified Cx Nom (U) ORGANISM ID: 1 10,000 -<50,000 CFU/ml Normal urogenital kilo Normal [facility] Comment on above: Performed By: #### 6 30-4 ####[facility] LAB[facility] [id number] [place] [address] [place] CBC W Auto Differential pane l (Bld)on 02-16-2025 Basophils (Bld) [#/Vol] 10*3/uL Normal <0.11 [facility] Comment on above: Order Comment: Speci men Type: BLOOD SPECIMEN Ordering Facility: [facility] Address: [address] [place] [address] Performed By: #### 2 4323-8 #### [id number] [address] [place] [address] [place] Basophils/100 WBC (Bld) 0.1 % Normal C [facility] Comment on above: Order Comment: Speci men Type: BLOOD SPECIMEN Ordering Facility: [facility] Address: [address] [place] [address] Performed By: #### 2 4323-8 #### [facility] [id number] [address] [place] [address] [place] Differential cell count method Nom (Bld) Auto Normal [facility] Comment on above: Order Comment: Speci men Type: BLOOD SPECIMEN Ordering Facility: [facility] Address: [address] [place] [address] Performed By: #### 2 4323-8 #### [facility] CLIA [id number] [address] [place] [address] [place] Eosinophils (Bld) [#/Vol] 0.07 10*3/uL Normal <0.46 [facility] Comment on above: Order Comment: Speci men Type: BLOOD SPECIMEN Ordering Facility: [facility] Address: [address] [place] [address] Performed By: #### 2 4323-8 #### [facility] CLIA [id number] [address] [place] [address] [place] Eosinophils/100 WBC (Bld) 0.8 % Normal [facility] Comment on above: Order Comment: Speci men Type: BLOOD SPECIMEN Ordering Facility: [facility] Address: [address] [place] [address] Performed By: #### 2 4323-8 #### [facility] CLIA [id number] [address] [place] [address] [place] Erythrocyte distribution width (RBC) [Ratio] 16.3 % High 11.5-15.0 [facility] Comment on above: Order Comment: Speci men Type: BLOOD SPECIMEN Ordering Facility: [facility] Address: [address] [place] [address] Performed By: #### 2 4323-8 #### [facility] CLIA [id number] [address] [place] [address] [place] Hematocrit (Bld) [Volume fraction] 34.5 % Low 36.0-46.0 [facility] Comment on above: Order Comment: Speci men Type: BLOOD SPECIMEN Ordering Facility: [facility] Address: [address] [place] [address] Performed By: #### 2 4323-8 #### [facility] CLIA [id number] [address] [place] [address] [place] Hemoglobin (Bld) [Mass/Vol] 11.6 g/dL Normal 11.5-15.5 [facility] Comment on above: Order Comment: Speci men Type: BLOOD SPECIMEN Ordering Facility: [facility] Address: [address] [place] [address] Performed By: #### 2 4323-8 #### [facility] CLIA [id number] [address] [place] [address] [place] Immature granulocytes (Bld) [#/Vol] 10*3/uL Normal <0.10 [facility] Comment on above: Order Comment: Speci men Type: BLOOD SPECIMEN Ordering Facility: [facility] Address: [address] [place] [address] Performed By: #### 2 4323-8 #### [facility] CLIA [id number] [address] [place] [address] [place] Immature granulocytes/100 WBC (Bld) 0.2 % Normal [facility] Comment on above: Order Comment: Speci men Type: BLOOD SPECIMEN Ordering Facility: [facility] Address: [address] [place] [address] Performed By: #### 2 4323-8 #### [facility] CLIA [id number] [address] [place] [address] [place] Lymphocytes (Bld) [#/Vol] 1.51 10*3/uL Normal 1.00-4.00 [facility] Comment on above: Order Comment: Speci men Type: BLOOD SPECIMEN Ordering Facility: [facility] Address: [address] [place] [address] Performed By: #### 2 4323-8 #### [facility] CLIA [id number] [address] [place] [address] [place] Lymphocytes/100 WBC (Bld) 18.2 % Normal [facility] Comment on above: Order Comment: Speci men Type: BLOOD SPECIMEN Ordering Facility: [facility] Address: [address] [place] [address] Performed By: #### 2 4323-8 #### [facility] CLIA [id number] [address] [place] [address] [place] MCH (RBC) [Entitic mass] 26.4 pg Normal 26.0-34.0 [facility] Comment on above: Order Comment: Speci men Type: BLOOD SPECIMEN Ordering Facility: [facility] Address: [address] [place] [address] Performed By: #### 2 4323-8 #### [facility] CLIA [id number] [address] [place] [address] [place] MCHC (RBC) [Mass/Vol] 33.6 g/dL Normal 30.5-36.0 [facility] Comment on above: Order Comment: Speci men Type: BLOOD SPECIMEN Ordering Facility: [facility] Address: [address] [place] [address] Performed By: #### 2 4323-8 #### [facility] [id number] [address] [place] [address] [place] MCV (RBC) [Entitic vol] 78.6 fL Low 80.0-100.0 C [facility] Comment on above: Order Comment: Speci men Type: BLOOD SPECIMEN Ordering Facility: [facility] Address: [address] [place] [address] Performed By: #### 2 4323-8 #### [facility] CLIA [id number] [address] [place] [address] [place] Monocytes (Bld) [#/Vol] 0.45 10*3/uL Normal <0.87 [facility] Comment on above: Order Comment: Speci men Type: BLOOD SPECIMEN Ordering Facility: [facility] Address: [address] [place] [address] Performed By: #### 2 4323-8 #### [facility] CLIA [id number] [address] [place] [address] [place] Monocytes/100 WBC (Bld) 5.4 % Normal [facility] Comment on above: Order Comment: Speci men Type: BLOOD SPECIMEN Ordering Facility: [facility] Address: [address] [place] [address] Performed By: #### 2 4323-8 #### [facility] CLIA [id number] [address] [place] [address] [place] Neutrophils (Bld) [#/Vol] 6.22 10*3/uL Normal 1.45-7.50 [facility] Comment on above: Order Comment: Speci men Type: BLOOD SPECIMEN Ordering Facility: [facility] Address: [address] [place] [address] Performed By: #### 2 4323-8 #### [facility] CLIA [id number] [address] [place] [address] [place] Neutrophils/100 WBC (Bld) 75.3 % Normal [facility] Comment on above: Order Comment: Speci men Type: BLOOD SPECIMEN Ordering Facility: [facility] Address: [address] [place] [address] Performed By: #### 2 4323-8 #### [facility] CLIA [id number] [address] [place] [address] [place] Nucleated RBC (Bld) [#/Vol] 10*3/uL Normal <0.01 [facility] Comment on above: Order Comment: Speci men Type: BLOOD SPECIMEN Ordering Facility: [facility] Address: [address] [place] [address] Performed By: #### 2 4323-8 #### [facility] CLIA [id number] [address] [place] [address] [place] Nucleated RBC/100 WBC (Bld) [Ratio] 0.0 /100 WBC Normal [facility] Comment on above: Order Comment: Speci men Type: BLOOD SPECIMEN Ordering Facility: [facility] Address: [address] [place] [address] Performed By: #### 2 4323-8 #### [facility] CLIA [id number] [address] [place] [address] [place] Platelet mean volume (Bld) [Entitic vol] 9.6 fL Normal 9.0-12.7 [facility] Comment on above: Order Comment: Speci men Type: BLOOD SPECIMEN Ordering Facility: [facility] Address: [address] [place] [address] Performed By: #### 2 4323-8 #### [facility] CLIA [id number] [address] [place] [address] [place] Platelets (Bld) [#/Vol] 376 10*3/uL Normal 150-400 [facility] Comment on above: Order Comment: Speci men Type: BLOOD SPECIMEN Ordering Facility: [facility] Address: [address] [place] [address] Performed By: #### 2 4323-8 #### [facility] CLIA [id number] [address] [place] [address] [place] RBC (Bld) [#/Vol] 4.39 10*6/uL Normal 3.90-5.20 [facility] Comment on above: Order Comment: Speci men Type: BLOOD SPECIMEN Ordering Facility: [facility] Address: [address] [place] [address] Performed By: #### 2 4323-8 #### [facility] CLIA [id number] [address] [place] [address] [place] WBC (Bld) [#/Vol] 8.28 10*3/uL Normal 3.70-11.00 [facility] Comment on above: Order Comment: Speci men Type: BLOOD SPECIMEN Ordering Facility: [facility] Address: [address] [place] [address] Performed By: #### 2 4323-8 #### [facility] CLIA [id number] [address] [place] [address] [place] Comprehensive metabolic 2000 panelon 02-16-2025 Albumin [Mass/Vol] 4.0 g/dL Normal 3.9-4.9 [facility] Comment on above: Order Comment: Speci men Type: BLOOD SPECIMEN Ordering Facility: [facility] Address: [address] [place] [address] Performed By: #### 2 4323-8 #### [facility] CLIA [id number] [address] [place] [address] [place] ALP [Catalytic activity/Vol] 85 U/L Normal 34-123 [facility] Comment on above: Order Comment: Speci men Type: BLOOD SPECIMEN Ordering Facility: [facility] Address: [address] [place] [address] Performed By: #### 2 4323-8 #### [facility] CLIA [id number] [address] [place] [address] [place] ALT [Catalytic activity/Vol] 31 U/L Normal 7-38 [facility] Comment on above: Order Comment: Speci men Type: BLOOD SPECIMEN Ordering Facility: [facility] Address: [address] [place] [address] Performed By: #### 2 4323-8 #### [facility] CLIA [id number] [address] [place] [address] [place] Anion gap [Moles/Vol] 11 mmol/L Normal 8-15 [facility] Comment on above: Order Comment: Speci men Type: BLOOD SPECIMEN Ordering Facility: [facility] Address: [facility] [place] [address] Performed By: #### 2 4323-8 #### [facility] CLIA [id number] [address] [place] [address] [place] AST [Catalytic activity/Vol] 15 U/L Normal 13-35 [facility] Comment on above: Order Comment: Speci men Type: BLOOD SPECIMEN Ordering Facility: [facility] Address: [address] [place], [place] [address] Performed By: #### 2 4323-8 #### [facility] CLIA [id number] [address] [place] [address] [place] Bilirubin [Mass/Vol] 0.3 mg/dL Normal 0.2-1.3 [facility] Comment on above: Order Comment: Speci men Type: BLOOD SPECIMEN Ordering Facility: [facility] Address: [address] [place] [address] Performed By: #### 2 4323-8 #### [facility] CLIA [id number] [address] [place] [address] [place] Calcium [Mass/Vol] 9.6 mg/dL Normal 8.5-10.2 [facility] Comment on above: Order Comment: Speci men Type: BLOOD SPECIMEN Ordering Facility: [facility] Address: [address] [place] [address] Performed By: #### 2 4323-8 #### [facility] CLIA [id number] [address] [place] [address] [place] Chloride [Moles/Vol] 106 mmol/L Normal 98-107 [facility] Comment on above: Order Comment: Speci men Type: BLOOD SPECIMEN Ordering Facility: [facility] Address: [address] [place], [place] [address] Performed By: #### 2 4323-8 #### [facility] CLIA [id number] [address] [place] [address] [place] CO2 [Moles/Vol] 20 mmol/L Low 22-30 [facility] Comment on above: Order Comment: Speci men Type: BLOOD SPECIMEN Ordering Facility: [facility] Address: [address] [place], [place] [address] Performed By: #### 2 4323-8 #### [facility] CLIA [id number] [address] [place] [address] [place] Creatinine [Mass/Vol] 0.62 mg/dL Normal 0.58-0.96 [facility] Comment on above: Order Comment: George grimes Type: BLOOD SPECIMEN Ordering Facility: [facility] Address: [address] [place] [address] Performed By: #### 2 4323-8 #### [facility] CLIA [id number] [address] [place] [address] [place] Creatinine and Glomerular filtration rate.predicted panel (S/P/Bld) 125 mL/min/1.73m??? Normal >=60 [facility] Comment on above: Order Comment: George grimes Type: BLOOD SPECIMEN Ordering Facility: [facility] Address: [address] [place] [address] Result Comment: Yeimy mated Glomerular Filtration Rate [...] GFR. Performed By: #### 2 4323-8 #### [id number] [address] [place] [address] [place] Glucose [Mass/Vol] 92 mg/dL Normal 74-99 [facility] Comment on above: Order Comment: George grimes Type: BLOOD SPECIMEN Ordering Facility: [facility] Address: [address] [place] [id number] Result Comment: The [place] Diabetes Association (ADA) provides guidance for cutoff [...] Standards of Medical Care in Diabetes 2016, [place] Diabetes Association. Diabetes Care. 2016.39(Suppl 1). Performed By: #### 2 4323-8 #### [facility] CLIA [id number] [address] [place] [address] [place] Potassium [Moles/Vol] 4.0 mmol/L Normal 3.7-5.1 [facility] Comment on above: Order Comment: George grimes Type: BLOOD SPECIMEN Ordering Facility: [facility] Address: [address] [place] [address] Performed By: #### 2 4323-8 #### [facility] [id number] [address] [place] [address] [place] Protein [Mass/Vol] 6.9 g/dL Normal 6.3-8.0 [facility] Comment on above: Order Comment: George grimes Type: BLOOD SPECIMEN Ordering Facility: [facility] Address: [address] [place], [place] [id number] Performed By: #### 2 4323-8 #### [facility] [id number] [address] [place] [address] [place] Sodium [Moles/Vol] 137 mmol/L Normal 136-144 [facility] Comment on above: Order Comment: George grimes Type: BLOOD SPECIMEN Ordering Facility: [facility] Address: [address] [place] [address] Performed By: #### 2 4323-8 #### [facility] CLIA [id number] [address] [place] [address] [place] Urea nitrogen [Mass/Vol] 5 mg/dL Low 7-21 [facility] Comment on above: Order Comment: Speci men Type: BLOOD SPECIMEN Ordering Facility: [facility] Address: [address] [place] [address] Performed By: #### 2 4323-8 #### [facility] CLIA [id number] [address] [place] [address] [place] Examination level ultrasound on 02-16-2025 Indication First trimester anatomic survey. Maternal obesity, BMI >40 Impression The patient is referred for a first trimester anatomy scan including nuchal translucency measurement as clinically indicated. - Single, live, intrauterine . - [place] rump length measurement is consistent with the [...] view: suboptimal 4-chamber view with color: suboptimal 2-nyzkyl-cpngmgn view: suboptimal Abdominal cord insertion: normal Stomach: [...] Lt ovary Vol 5.2 cm Performed By: Maria Elena Gooden RDMS Read By: Ping Sotomayor M.D. MATERNAL MEDICINE [facility] Radiology Study observation (narrative) [facility] HBV surface Ag Ser Qlon 01-30 HBV surface Ag Ql (S) Negative Normal Negative [facility] Comment on above: Order Comment: Speci men Type: BLOOD SPECIMENOrdering Facility: [facility] Address: [address] [place] [address] Performed By: #### 5 195-3, 25657-4, 49997-4 ####[facility]IA [id number] [address] STATES OF [facility] HCV Ab Ser Qlon 02-16-2025 HCV Ab Ql (S) Negative Normal Negative [facility] Comment on above: Order Comment: Speci men Type: BLOOD SPECIMENOrdering Facility: [facility] Address: [address] [place] [address] Result Comment: The result suggests no evidence of infection with Hepatitis C virus. Should recent infection be suspected, repeat testing may be considered 4-6 weeks after this draw. Performed By: #### 1 6128-1 ####[facility] LABIA [id number] [place] [address] [place] HIV 1+2 Ab IA Qlon 5 HIV 1 and 2 Ab IA.rapid Nom (S/P/Bld) Normal [facility] Comment on above: Order Comment: Speci men Type: BLOOD SPECIMENOrdering Facility: [facility] Address: [address] [place] [address] Result Comment: Test not indicated. Performed By: #### 5 195-3, 38881-8, 78241-4 ####[facility] [id number] [place] [address] [place] HIV 1+2 Ab+HIV1 p24 Ag IA Ql Non-Reactive Normal Nonreactive [facility] Comment on above: Order Comment: Speci men Type: BLOOD SPECIMENOrdering Facility: [facility] Address: [address] [place] [address] Performed By: #### 5 195-3, 78162-7, 48196-7 ####[facility] [id number] [address] [place] HIV immunoassay testing algorithm interpretation (S/P/Bld) [Interp] Normal [facility] Comment on above: Order Comment: Speci men Type: BLOOD SPECIMENOrdering Facility: [facility] Address: [address] [place] [address] Result Comment: No e vidence of HIV-1 or HIV-2 infection. Should recent infection be suspected, repeat testing may be considered 2-3 weeks after this draw. [place] Rev. Code 3701.243(E): This information has been [...] test results or diagnoses. Performed By: #### 5 195-3, 96617-7, 06421-1 ####[facility] [id number] [place] [id number] [place] HbA1c (Bld)on 02-16-2025 Average glucose Estimated from glycated hemoglobin (Bld) [Mass/Vol] 91 mg/dL Normal [facility] Comment on above: Order Comment: George grimes Type: BLOOD SPECIMEN Ordering Facility: [facility] Address: [address] [place] [address] Result Comment: eAG: (Estimated average glucose) is a calculated value from HgbA1c and is it sales representative of the average blood glucose level in the last 2-3 month period. Performed By: #### 3 024-7, 3015-3 #### [facility] CLIA [id number] [address] [place] [address] [place] HbA1c (Bld) [Mass fraction] 4.8 % Normal 4.3-5.6 [facility] Comment on above: Order Comment: George grimes Type: BLOOD SPECIMEN Ordering Facility: [facility] Address: [address] [place] [address] Result Comment: [place] Diabetes Association guidelines indicate that patients with HgbA1c in the range 5.7-6.4% are at increased risk for development of diabetes, and intervention by lifestyle modification may be beneficial. HgbA1c greater or equal to 6.5% is considered diagnostic of diabetes. Performed By: #### 3 024-7, 3015-3 #### [facility] CLIA [id number] [address] [place] [address] [place] [id number] PLUSon 02-16-2025 Cell-free DNA./Cell-free DNA.total Dosage of chromosome-specific cfDNA (cfDNA) [Molar fraction] 13% Normal [facility] [place] Comment on above: Order Comment: Koreyi cornelio Type: BLOOD SPECIMEN Ordering Facility: [facility] Address: [address] [place] [address] Performed By: #### 3 024-7, 3015-3 #### [facility] CLIA [id number] [address] [place] [address] [place] Chr 13+18+21+X+Y aneuploidy Dosage of chromosome-specific cfDNA Ql (cfDNA) Negative Normal [facility] [place] Comment on above: Order Comment: Speci men Type: BLOOD SPECIMEN Ordering Facility: [facility] Address: [address] [place] [address] Performed By: #### 3 024-7, 3016-3 #### [facility] CLIA [id number] [address] [place] [address] [place] Chr 21 trisomy Dosage of chromosome-specific cfDNA Ql (cfDNA) Negative Normal [facility] [place] Comment on above: Order Comment: Speci men Type: BLOOD SPECIMEN Ordering Facility: [facility] Address: [address] [place] [address] Performed By: #### 3 024-7, 3016-3 #### [facility] CLIA [id number] [address] [place] [address] [place] Chr X and Y aneuploidy risk Sequencing Ql (cfDNA) [Interp] Not detected Normal [facility] [place] Comment on above: Order Comment: Speci men Type: BLOOD SPECIMEN Ordering Facility: [facility] Address: [address] [place] [address] Result Comment: Not Detected Not Detected Performed By: #### 3 024-7, 3016-3 #### [facility] CLIA [id number] [address] [place] [address] [place] Citation Renny (Reference lab test) Comment Normal [facility] Comment on above: Order Comment: Speci men Type: BLOOD SPECIMEN Ordering Facility: [facility] Address: [address] [place] [address] Result Comment: 1. P vlad MAYEN, et al. [place] Med. 2012;14(3):296-305. 2. Brianne JIN et al. Prenat Diag. 2013;33(6):591-597. 3. Aime C et al. Clin Chem. 2015 Apr;61(4):608-616. 4. Giancarlo MAYEN, et al. [place] Med. 2011;13(11):913-920. 5. ACOG[facility] Practice Bulletin No. 226, Sep 2020. Performed By: #### 3 024-7, 3016-3 #### [facility] CLIA [id number] [address] [place], [place] [address] [place] Gestational age Estimated from conception date Rodgers Normal [facility] [place] Comment on above: Order Comment: Speci men Type: BLOOD SPECIMEN Ordering Facility: [facility] Address: [address] [place] [address] Performed By: #### 3 024-7, 3016-3 #### [facility] CLIA [id number] [address] [place] [address] STATES [place] HE[place] GESTATIONALAGE AGE > OR = 9W Yes Normal [facility] [place] Comment on above: Order Comment: George grimes Type: BLOOD SPECIMEN Ordering Facility: [facility] Address: [address] [place] [address] Performed By: #### 3 024-7, 3015-3 #### [facility] CLIA [id number] [address] [place], [place] [address] [place] Laboratory comment Renny (Report) Comment Normal [facility] [place] Comment on above: Order Comment: George grimes Type: BLOOD SPECIMEN Ordering Facility: [facility] Address: [address] [place] [address] Result Comment: The MaterniT(R) 21 PLUS laboratory-developed test (LDT) analyzes circulating cell-free DNA from a maternal blood sample. This test is used for screening purposes and not diagnostic. Clinical correlation is recommended. Validation data on twin pregnancies is limited and the ability of this test to detect aneuploidy in higher multiple gestations has not yet been validated. Performed By: #### 3 024-7, 3016-3 #### [facility] CLIA [id number] [address] [place] [address] [place] director student union name Nom (Provider) Comment Normal [facility] [place] Comment on above: Order Comment: George grimes Type: BLOOD SPECIMEN Ordering Facility: [facility] Address: [address] [place] [address] Result Comment: This specimen showed an expected representation of chromosome 21, 18 and 13 material. Clinical correlation is suggested. Comment Saman Matthews MD, PhD, Director, Aidin Performed By: #### 3 024-7, 3016-3 #### [facility] CLIA [id number] [address] [place] [address] [place] [address] [place] LIMITATIONS OF THE TEST Comment Normal C [facility] Comment on above: Order Comment: Speci men Type: BLOOD SPECIMEN Ordering Facility: [facility] Address: [address] [place] [address] Result Comment: Whil e the results of these tests are highly [...] Performed By: #### 3 024-7, 3016-3 #### [facility] CLIA [id number] [address] [place] [address] STATES [facility] Monosomy X risk Dosage of chromosome-specific cfDNA Ql (Plasma cell-free+WBC DNA) [Interp] Not detected Normal [facility] [place] Comment on above: Order Comment: George grimes Type: BLOOD SPECIMEN Ordering Facility: [facility] Address: [address] [place] [address] Performed By: #### 3 024-7, 3015-3 #### [facility] CLIA [id number] [address] [place] [address] NEGATIVE PREDICTIVE VALUE Note Normal [facility] Comment on above: Order Comment: George grimes Type: BLOOD SPECIMEN Ordering Facility: [facility] Address: [address] [place] [address] Result Comment: The Negative Predictive Value (NPV) for trisomy 21, 18, and 13 is greater than 99%. The NPV for SCA and ESS cannot be calculated as SCA and ESS are only reported when an abnormality is detected. Performed By: #### 3 024-7, 3016-3 #### [facility] CLIA [id number] [address] [place] [address] PERFORMANCE CHARACTERISTICS Note Normal [facility] [place] Comment on above: Order Comment: George grimes Type: BLOOD SPECIMEN Ordering Facility: [facility] Address: [address] [place] [address] Result Comment: ! Sex ! Accuracy: 99.4% [...] ! ! ! * As reported in [employer] database nstd37 [https://www.ncbi.nlm.nih.gov/dbvar/studies/nstd37/ ] # Estimated Sensitivity. [...] gestation only. Performed By: #### 3 024-7, 3015-3 #### [facility] CLIA [id number] [address] [place] [address] [place] POSITIVE PREDICTIVE VALUE N/A Normal [facility] [place] Comment on above: Order Comment: Speci men Type: BLOOD SPECIMEN Ordering Facility: [facility] Address: [address] [place] [address] Performed By: #### 3 024-7, 3015-3 #### [facility] CLIA [id number] [address] [place] [address] [place] Reference Lab Test Method Comment Normal [facility] [place] Comment on above: Order Comment: Speci men Type: BLOOD SPECIMEN Ordering Facility: [facility] Address: [address] [place] [address] Result Comment: See Notes Circulating cell-free DNA [...] Performed By: #### 3 024-7, 3015-3 #### [facility] CLIA [id number] [address] [place] [address] [place] Service comment (Unsp spec) [Interp] Comment Normal [facility] [place] Comment on above: Order Comment: Speci men Type: BLOOD SPECIMEN Ordering Facility: [facility] Address: [address] [place] [address] Result Comment: See Notes [employer] is a subsidiary of [employer] / ?.??, using the brand [employer]. This test was developed and its performance characteristics determined by [employer]. It has not been cleared or approved by the Food and Drug Administration. This laboratory is certified under the Clinical Laboratory Improvement Amendments (CLIA) as qualified to perform high complexity clinical laboratory testing and accredited by the [employer] (CAP). If there is future clinical need for adding MaterniT GENOME testing, this specimen will be available until term. [facility] samples will not be retained beyond 60 days. [facility] patients will have to send a new sample for re-sequencing ([facility] Test Code: [id number]). Performed By: #### 3 024-7, 3016-3 #### [facility] CLIA [id number] [address] [place] [address] [place] Sex Dosage of chromosome-specific cfDNA Nom (cfDNA) Comment Normal [facility] [place] Comment on above: Order Comment: Speci men Type: BLOOD SPECIMEN Ordering Facility: [facility] Address: [address] [place] [address] Result Comment: Cons istent with Male Performed By: #### 3 024-7, 3015-3 #### [facility] CLIA [id number] [address] [place] [address] [place] Test performance information Renny (Unsp spec) Comment Normal [facility] [place] Comment on above: Order Comment: Speci men Type: BLOOD SPECIMEN Ordering Facility: [facility] Address: [address] [place] [address] Result Comment: The performance characteristics of the MaterniT(R) 21 PLUS laboratory-developed test (LDT) have been determined in a clinical validation study with women at increased risk for chromosomal aneuploidy.[1-4] Performed By: #### 3 024-7, 3016-3 #### [facility] CLIA [id number] [address] [place] [address] [place] Trisomy 13 risk Dosage of chromosome-specific cfDNA Ql (cfDNA) [Interp] Negative Normal [facility] [place] Comment on above: Order Comment: Speci men Type: BLOOD SPECIMEN Ordering Facility: [facility] Address: [address] [place] [address] Performed By: #### 3 024-7, 3016-3 #### [facility] CLIA [id number] [address] [place] [address] OF HEAVEN Trisomy 18 risk Dosage of chromosome-specific cfDNA Ql (Plasma cell-free+WBC DNA) [Interp] Negative Normal [facility] [place] Comment on above: Order Comment: Speci men Type: BLOOD SPECIMEN Ordering Facility: [facility] Address: [address] [place] [address] Performed By: #### 3 024-7, 3016-3 #### [facility] CLIA [id number] [address] [place] [address] [place] RUBELLA IGG ANTIBODYon 02-16 RUBELLA IGG AB, QUAL Negative Abnormal Positive [facility] Comment on above: Order Comment: Speci men Type: BLOOD SPECIMEN Ordering Facility: [facility] Address: [address] [place] [address] Result Comment: The result suggests no history of Rubella vaccination or exposure to Rubella virus, however, some individuals with past history of Rubella vaccination may test negative using this test as immunity to Rubella virus wanes over time after vaccination. Please correlate with vaccination history if applicable. Performed By: #### 2 4323-8 #### [facility] CLIA [id number] [address] [place] [address] [place] Reagin and Treponema pallidu m IgG and IgM [Interp]on 02-16-2025 T. pallidum IgG+IgM IA Ql (S) Non-Reactive Normal Nonreactive [facility] Comment on above: Order Comment: Speci men Type: BLOOD SPECIMENOrdering Facility: [facility] Address: [address] [place] [address] Performed By: #### 5 195-3, 37498-5, 84010-5 ####[facility] [id number] [place] [address] [place] Reagin+T pallidum IgG+IgM Se rPl-Impon 02-16-2025 Reagin and Treponema pallidum IgG and IgM [Interp] Cannot exclude recent Treponemal infection if specimen collected within 7-10 days after appearance of suspect lesions or 2-3 weeks after an exposure. Clinical correlation is required. Normal [facility] Comment on above: Order Comment: Speci men Type: BLOOD SPECIMENOrdering Facility: [facility] Address: [address] [place] [address] Performed By: #### 5 195-3, 59404-0, 03658-6 ####[facility] [id number] [place] [id number] [place] T4 Free SerPl-mCncon 025 Free T4 [Mass/Vol] 0.8 ng/dL Low 0.9-1.7 [facility] Comment on above: Order Comment: Speci men Type: BLOOD SPECIMEN Ordering Facility: [facility] Address: [address] [place] [address] Performed By: #### 3 024-7, 3016-3 #### [facility] CLIA [id number] [address] [place] [address] [place] TSH SerPl-aCncon 02-16-2025 TSH Qn 4.080 m[IU]/L Normal 0.270-4.200 [facility] Comment on above: Order Comment: Speci men Type: BLOOD SPECIMEN Ordering Facility: [facility] Address: [address] [place] [address] Result Comment: If t he patient is , TSH reference range varies by gestational period: First Trimester (weeks 9-12): 0.180-2.990 mIU/L Second Trimester: 0.110-3.980 mIU/L Third Trimester: 0.480-4.710 mIU/L Tonny Isaac et al. A Practical Approach for the Verifications and Determination of Site- and Trimester-Specific Reference Intervals for Thyroid Function tests in . Thyroid, 2019:29:3:412-420. Ronak E, et al. 2017 Guidelines of the [place] Thy[employer] for the Diagnosis and Management of Thyroid Disease during and the . Thyroid, 2017:27:3:315-389. Performed By: #### 3 024-7, 3016-3 #### [facility] CLIA [id number] [address] [place] [address] [place] TYPE + SCREEN PRENATALon ABO O Normal [facility] Comment on above: Order Comment: Speci cornelio Type: BLOOD SPECIMEN Ordering Facility: [facility] Address: [address] [place] [address] Performed By: #### 2 4323-8 #### [facility] CLIA [id number] [address] [place] [address] [place] Rh Nom (Bld) Positive Normal [facility] Comment on above: Order Comment: Koreyi cornelio Type: BLOOD SPECIMEN Ordering Facility: [facility] Address: [address] [place] [address] Performed By: #### 2 4323-8 #### [facility] CLIA [id number] [address] [place] [address] [place] TYPE AND SCREEN EXPIRATION 02/19/2025 23:59 Normal [facility] Comment on above: Order Comment: Koreyi cornelio Type: BLOOD SPECIMEN Ordering Facility: [facility] Address: [address] [place] [address] Performed By: #### 2 4323-8 #### [facility] CLIA [id number] [address] [place] [address] [place] UA DIP, URINE (POC)on 2024 BILIRUBIN UA (POCT) Negative Negative [facility] CLARITY UA (POCT) Clear [facility] COLOR UA (POCT) Yellow [facility] GLUCOSE UA (POCT) Negative Negative mg/dL [facility] Hemoglobin Ql (U) Negative Negative [facility] Interpretation and review of laboratory results Abnormal [facility] KETONE UA (POCT) Negative Negative mg/dL [facility] LEUKOCYTES UA (POCT) Moderate Abnormal Negative [facility] NITRITE UA (POCT) Negative Negative [facility] PH UA (POCT) 6.5 4.5 - 8.0 [facility] Protein Ql (U) Negative Negative mg/dL [facility] SPECIFIC GRAVITY UA (POCT) <=1.005 Abnormal 1.005 - 1.030 [facility] UROBILINOGEN UA (POCT) 0.2 Normal E.U./d L [facility] Location:[facility], [address], [place], [place], [address] [place] [address] POINT OF CARE [facility] CNPNon 01-22-2025 CNPN Telephone ([id number]) YOKASTA PRETTY ([id number]) 1995 F Date Time Provider Department 01/22/25 FUNMILAYO PICKENS [id number] During your visit today, we recorded the following information about you: Funmilayo Pickens RN 01/22/2025 10:22 AM Signed 1st risk assessment form submitted 01/22/2025. Funmilayo Pickens RN Allergies As of Date: 01/22/2025 Noted Allergy Reaction ABILIFY (ARIPIPRAZOLE) 03/05/2016 4 - Hives Date Reviewed: 01/21/2025 Reviewed by: Judit Pimentel APRN.SLOT FLOOR ATTENDANT - Fully Assessed Reason for Visit: Patient Access Registrar - Other [[id number]] Cmt: PRAF Prescriptions as of 01/22/2025 - aspirin, enteric [...] Encounter Status:Closed by FUNMILAYO PICKENS on 01/22/25 Normal [facility] Bacteria Ur Culton Bacteria identified Cx Nom [...] , Intermediate >32 , Resistant >64 Abnormal [facility] Comment on above: Performed By: #### 6 30-4 ####[facility] [id number] [place] [address] [place] C. trachomatis+N. gonorrhoea e DNA KOLE+probe Ql (Unsp spec)on 01-21-2025 C. trachomatis rRNA KOLE+probe Ql (Unsp spec) Not detected Normal Not detected [facility] Comment on above: Order Comment: Speci men Type: SWABOrdering Facility: [facility] Address: [address] [place] [address] Performed By: #### 3 6902-5, TRVAMP ####[facility] [id number] [place] [address] [place] N. gonorrhoeae rRNA KOLE+probe Ql (Unsp spec) Not detected Normal Not detected [facility] Comment on above: Order Comment: Speci men Type: SWABOrdering Facility: [facility] Address: [address] [place] [address] Performed By: #### 3 6902-5, TRVAMP ####[facility] [id number] [place] [address] [place] PAP TESTon 01-21-2025 ADEQUACY Normal [facility] Comment on above: Order Comment: Speci men Type: BLOOD SPECIMEN Ordering Facility: [facility] Address: [address] [place] [address] Result Comment: Sati sfactory for interpretation. No endocervical component Performed By: #### 2 4323-8 #### [facility] CLIA [id number] [address] [place] [address] [place] CASE REPORT Normal [facility] Comment on above: Order Comment: Speci men Type: BLOOD SPECIMEN Ordering Facility: [facility] Address: [address] [place] [address] Result Comment: Gyne cologic Cytology Report Case: [id number] Authorizing Provider: Judit Pimentel APRN.SLOT FLOOR ATTENDANT Collected: 01/21/2025 10:18 AM Ordering Location: OB/Gynecology Received: 01/21/2025 12:16 PM First Screen: Paramjit, Areli, CT, ASCP Rescreen: Charlie Angeles, Wandy Specimen: Pap Test, ThinPrep, Cervix Performed By: #### 2 4323-8 #### [facility] CLIA [id number] [address] [place] [address] [place] CLINICAL HISTORY, CYTOLOGY, TECHNICAL SOLUTIONS DIRECTOR Routine Exam Normal [facility] Comment on above: Order Comment: Speci men Type: BLOOD SPECIMEN Ordering Facility: [facility] Address: [address] [place] [address] Performed By: #### 2 4323-8 #### [facility] CLIA [id number] [address] [place] [address] [place] OF [place] FINAL PERFORMING LAB Normal [facility] Comment on above: Order Comment: Speci men Type: BLOOD SPECIMEN Ordering Facility: [facility] Address: [address] [place] [address] Result Comment: Wandy nicafia component, liner machine operator screening performed at [facility], [address] [place] [address] CLIA# [id number] Diagnostic interpretation performed at [facility], [address] [place], [place] [address] CLIA# [id number] Certified Wellness Program Coordinator: Lázaro Lorenzana M.D. Performed By: #### 2 4323-8 #### [facility] CLIA [id number] [address] [place] [address] OF HEAVEN INTERPRETATION, CYTOLOGY, TECHNICAL SOLUTIONS DIRECTOR Normal [facility] Comment on above: Order Comment: Speci men Type: BLOOD SPECIMEN Ordering Facility: [facility] Address: [address] [place] [address] Result Comment: Nega tive for intraepithelial lesion or malignancy. at 0846 EST Performed By: #### 2 4323-8 #### [facility] CLIA [id number] [address] [place] [address] [place] LMP 11/15/2024 Normal [facility] Comment on above: Order Comment: Speci men Type: BLOOD SPECIMEN Ordering Facility: [facility] Address: [address] [place] [address] Performed By: #### 2 4323-8 #### [facility] CLIA [id number] [address] [place] [address] PAP DISCLAIMER COMMENT The Pap Smear is a screening test for cervical cancer. False negative results occur with all screening tests, emphasizing the need for rescreening at recommended intervals, and clinical correlation. Normal [facility] Comment on above: Order Comment: Speci men Type: BLOOD SPECIMEN Ordering Facility: [facility] Address: [address] [place], [place] [address] Performed By: #### 2 4323-8 #### [facility] CLIA [id number] [address] [place] [address] PAP SUPERVISOR HAND SILVERING COMMENT This specimen has be en analyzed by the ThinPrep Imaging System, an automated imaging and review system, which assists the laboratory in evaluating cells on ThinPrep Pap tests. Following automated imaging, selected orosco from every slide are reviewed by a liner machine operator. Normal [facility] Comment on above: Order Comment: Speci men Type: BLOOD SPECIMEN Ordering Facility: [facility] Address: [address] [place] [address] Performed By: #### 2 4323-8 #### [facility] CLIA [id number] [address] [place] [address] POC RESEARCH STUDY ASSISTANT ULTRASOUNDon 01-21-20 25 Indication Viability; confirm cardiac activity Impression Single [...] Read By: Judit Pimentel NP MATERNAL MEDICINE [facility] Radiology Study observation (narrative) [facility] TRICHOMONAS VAGINALIS NAATon 01-21-2025 T. vaginalis DNA KOLE+probe Ql (Unsp spec) Not detected Normal Not detected [facility] Comment on above: Order Comment: Speci men Type: SWABOrdering Facility: [facility] Address: [address] [place] [place] [address] Performed By: #### 3 6902-5, TRVAMP ####[facility] [id number] [place] [address] [place] UA DIP, URINE (POC)on 2024 BILIRUBIN UA (POCT) Negative Negative [facility] CLARITY UA (POCT) Clear [facility] COLOR UA (POCT) Yellow [facility] GLUCOSE UA (POCT) Negative Negative mg/dL [facility] Hemoglobin Ql (U) Trace-intact Abnormal Negative [facility] Interpretation and review of laboratory results Abnormal [facility] KETONE UA (POCT) Negative Negative mg/dL [facility] LEUKOCYTES UA (POCT) Moderate Abnormal Negative [facility] NITRITE UA (POCT) Positive Abnormal Negative [facility] PH UA (POCT) 6 4.5 - 8.0 [facility] Protein Ql (U) 30 mg/dL Abnormal Negative [facility] SPECIFIC GRAVITY UA (POCT) >=1.030 1.005 - 1.030 [facility] UROBILINOGEN UA (POCT) 0.2 Normal E.U./d L [facility] Location:[facility], [address] , [place], [place], [id number] [place] [address] POINT OF CARE [facility] CNPNon 01-04-2025 CNPN Telephone (OBGYWM) SUKHWINDERYOKASTA MORE ([id number]) 1995 F Date Time Provider Department 01/04/25 ROXANNE ROWELL OBGYWM During your visit today, we recorded the following information about you: Emma Lundberg RN 01/04/2025 2:47 PM Signed ----- Message from Roxanne Rowell MD sent at 01/04/2025 2:22 PM EST ----- Scheduled for VV to discsuss tubal. has she signed title 19? If not make sure she knows has to be 30 days from then for tubal. It is only good for 30 days to 180 days after signature. RLR Emma Lundberg RN 01/04/2025 2:48 PM Signed Left message for patient to call office. See note below, she has not signed title 19. STACIA Clark Lindsey, RN 01/04/2025 3:00 PM Signed Patient notified and voiced understanding. Appointment changed to in office and appointment notes updated to get title 19. Kalyn Arredondo RN Allergies As of Date: 01/04/2025 [...] Streptococcus carrier), +RV cultur*10/03/2023 Encounter Status:Closed by KALYN ARREDONDO on 01/04/25 Normal [facility] Urine Cultureon 12-25-2024 URC Staphylococcus aureu s [place] Count 25,000-50,000 Staphylococcus aureus: REACTION cefOXitin Susc Islt Doxycycline Islt SHIVANI <=0.5 S Clindamycin.induced Susc Islt NEG Gentamicin Islt SHIVANI <=0.5 S Linezolid Islt SHIVANI 2 S Moxifloxacin Islt SHIVANI <=0.25 S Nitrofurantoin Islt SHIVANI <=16 S Oxacillin Susc Islt <=0.25 S Tetracycline Islt SHIVANI <=1 S TMP SMX Islt SHIVANI <=10 S Vancomycin Islt SHIVANI <=0.5 S Normal [facility] Comment on above: Performed By: #### L 400.2010, M100.2199 ####[facility] [id number] [place], [address] Testosterone, Total / Freeon 12-24-2024 TESTOSTER,FREE TNP Normal . [facility] Comment on above: Order Comment: N Result Comment: Unab le to calculate result since non-numeric result obtained for component test. Performed By: #### M 100.2200 #### [facility] [address] [place], [address] TESTOSTER,TOTAL 64 ng/dL Normal 13-71 [facility] Comment on above: Order Comment: N Performed By: #### M 100.2200 #### [facility] [address] [place], [address] TESTOSTERONE,%F TNP Normal . [facility] Comment on above: Order Comment: N Result Comment: Spec imen quantity insufficient for verification by repeat analysis. CONTACTED CARY Abrams AT YOUR FACILITY ON 12-24-2024 Performed By: #### M 100.2200 #### [facility] [address] [place], [address] CNOVon 12-23-2024 CNOV Office Visit (OBGYWM ) YOKASTA PRETTY ([id number]) 1995 F Date Time Provider Department 12/23/24 3:30 PM BETTIE BLUM OBGYWM During your visit today, we recorded the following information about you: Blood pressure Weight 118/76 128.8 kg Bettie Blum APRN.CNM 12/23/2024 4:07 PM Signed CONTRACEPTION Yokasta Shawn Pretty is a 29 year old who [...] in third trimester 2. BMI 40.0-44.9, adult ([facility]) 3. History of PCOS - Just starting weight loss program - Metformin 500 mg PO Daily - Semaglutide injections- just starting - Desires sterilization - RTO - virtual visit with Dr. 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 Normal [facility] Urinalysis, Routine (Dipstic k)on 12-23-2024 BILIRUBIN URINE Negative Normal Negative [facility] Comment on above: Order Comment: Urine , Random Performed By: #### M 100.2200 #### [facility] [address] [place], [address] Clarity (U) Cloudy Normal Clear [facility] Comment on above: Order Comment: Urine , Random Performed By: #### M 100.2200 #### [facility] [address] [place], [address] Color (U) Yellow Normal Yellow [facility] Comment on above: Order Comment: Urine , Random Performed By: #### M 100.2200 #### [facility] [address] [place], [address] GLUCOSE, UR Normal Normal Normal [facility] Comment on above: Order Comment: Urine , Random Performed By: #### M 100.2200 #### [facility] [address] [place], [address] KETONE UR Negative Normal Negative [facility] Comment on above: Order Comment: Urine , Random Performed By: #### M 100.2200 #### [facility] [address] [place], [address] LEUK ESTERASE 500 /ul Abnormal Negative [facility] Comment on above: Order Comment: Urine , Random Performed By: #### M 100.2200 #### [facility] [address] [place], [address] Nitrite Ql (U) Positive Abnormal Negative [facility] Comment on above: Order Comment: Urine , Random Performed By: #### M 100.2200 #### [facility] [address] [place], [address] OCCULT BLOOD-UR 25 /ul Abnormal Negative [facility] Comment on above: Order Comment: Urine , Random Performed By: #### M 100.2200 #### [facility] [address] [place], [address] pH UR 6.5 Normal 5.0 - 8.0 [facility] Comment on above: Order Comment: Urine , Random Performed By: #### M 100.2200 #### [facility] [address] [place], [address] PROT DIPSTX 30 mg/dl Abnormal Negative [facility] Comment on above: Order Comment: Urine , Random Performed By: #### M 100.2200 #### [facility] [address] [place], [address] SP.GR. DIPSTX 1.015 Normal 1.002-1.030 [facility] Comment on above: Order Comment: Urine , Random Performed By: #### M 100.2200 #### [facility] [address] [place], [address] UROBILI Normal Normal Normal [facility] Comment on above: Order Comment: Urine , Random Performed By: #### M 100.2200 #### [facility] [address] [place], [address] T4 Free Directon 12-17-2024 T4 FREE DIRECT 0.92 ng/dL Normal 0.76-1.46 [facility] Comment on above: Order Comment: T4F A DDED BY ROBB 12/17/2024STORAGE: WG4 4 MN Performed By: #### M 100.2200 #### [facility] [address] [place], [address] CBC W/Diff, Automatedon 12-02 Absolute Lymph 1.37 X10 3/uL Normal 0.83-4.51 [facility] Comment on above: Performed By: #### L 100.0100, L506.1000, L501.9985, L500.4050, L500.4100, L501.9520, L3100.5055, L506.0400, L3100.5310 #### [facility] [address] [place], [address] Absolute Neut 6.5 X10 3/uL Normal 2.0-7.7 [facility] Comment on above: Performed By: #### L 100.0100, L506.1000, L501.9985, L500.4050, L500.4100, L501.9520, L3100.5055, L506.0400, L3100.5310 #### [facility] [address] [place], [address] Basophils/100 WBC (Bld) 0.7 % Normal 0-1 [facility] Comment on above: Performed By: #### L 100.0100, L506.1000, L501.9985, L500.4050, L500.4100, L501.9520, L3100.5055, L506.0400, L3100.5310 #### [facility] [address] [place], [address] Eosinophils/100 WBC (Bld) 1.1 % Normal 0-5 [facility] Comment on above: Performed By: #### L 100.0100, L506.1000, L501.9985, L500.4050, L500.4100, L501.9520, L3100.5055, L506.0400, L3100.5310 #### [facility] [address] [facility] [place], [address] Erythrocyte distribution width (RBC) [Ratio] 15.6 % High 11.6-14.6 [facility] Comment on above: Performed By: #### L 100.0100, L506.1000, L501.9985, L500.4050, L500.4100, L501.9520, L3100.5055, L506.0400, L3100.5310 #### [facility] [address] [place], [address] Hematocrit (Bld) [Volume fraction] 38.5 % Normal 37-47 [facility] Comment on above: Performed By: #### L 100.0100, L506.1000, L501.9985, L500.4050, L500.4100, L501.9520, L3100.5055, L506.0400, L3100.5310 #### [facility] [address] [facility] [place], [address] Hemoglobin (Bld) [Mass/Vol] 12.2 g/dL Normal 12.0-15.0 [facility] Comment on above: Performed By: #### L 100.0100, L506.1000, L501.9985, L500.4050, L500.4100, L501.9520, L3100.5055, L506.0400, L3100.5310 #### [facility] [address] [facility] [place], [address] IG% 0.200 Normal 0.0-0.9 [facility] Comment on above: Result Comment: IG% - Immature Granulocytes (promyelocytes, myelocytes and metamyelocytes) > 1% indicates that a LEFT SHIFT is Present. Performed By: #### L 100.0100, L506.1000, L501.9985, L500.4050, L500.4100, L501.9520, L3100.5055, L506.0400, L3100.5310 #### [facility] [address] [facility] [place], [address] Lymphocytes/100 WBC (Bld) 16.1 % Low 19-41 [facility] Comment on above: Performed By: #### L 100.0100, L506.1000, L501.9985, L500.4050, L500.4100, L501.9520, L3100.5055, L506.0400, L3100.5310 #### [facility] [address] [facility] [place], [address] MCH (RBC) [Entitic mass] 25.6 pg Low 27.0-32.0 [facility] Comment on above: Performed By: #### L 100.0100, L506.1000, L501.9985, L500.4050, L500.4100, L501.9520, L3100.5055, L506.0400, L3100.5310 #### [facility] [address] [place], [address] MCHC (RBC) [Mass/Vol] 31.7 g/dL Low 32-36 [facility] Comment on above: Performed By: #### L 100.0100, L506.1000, L501.9985, L500.4050, L500.4100, L501.9520, L3100.5055, L506.0400, L3100.5310 #### [facility] [address] [place], [address] MCV (RBC) [Entitic vol] 80.7 fL Low 81-99 [facility] Comment on above: Performed By: #### L 100.0100, L506.1000, L501.9985, L500.4050, L500.4100, L501.9520, L3100.5055, L506.0400, L3100.5310 #### [facility] [address] [place], [address] Monocytes/100 WBC (Bld) 5.9 % Normal 0-10 [facility] Comment on above: Performed By: #### L 100.0100, L506.1000, L501.9985, L500.4050, L500.4100, L501.9520, L3100.5055, L506.0400, L3100.5310 #### [facility] [address] [place], [address] Neutrophils/100 WBC (Bld) 76.0 % High 47-70 [facility] Comment on above: Performed By: #### L 100.0100, L506.1000, L501.9985, L500.4050, L500.4100, L501.9520, L3100.5055, L506.0400, L3100.5310 #### [facility] [address] [place], [address] Nucleated RBC (Bld) [#/Vol] 0 10*3/uL Normal 0-5 [facility] Comment on above: Performed By: #### L 100.0100, L506.1000, L501.9985, L500.4050, L500.4100, L501.9520, L3100.5055, L506.0400, L3100.5310 #### [facility] [address] [facility] [place], [address] (894) Platelet mean volume (Bld) [Entitic vol] 10.0 fL Normal 6.2-12.0 [facility] Comment on above: Performed By: #### L 100.0100, L506.1000, L501.9985, L500.4050, L500.4100, L501.9520, L3100.5055, L506.0400, L3100.5310 #### [facility] [address] [facility] [place], [address] (128) Platelets (Bld) [#/Vol] 484 10*3/uL High 150-450 [facility] Comment on above: Performed By: #### L 100.0100, L506.1000, L501.9985, L500.4050, L500.4100, L501.9520, L3100.5055, L506.0400, L3100.5310 #### [facility] [address] [facility] [place], [address] RBC (Bld) [#/Vol] 4.77 10*6/uL Normal 4.2-5.4 [facility] Comment on above: Performed By: #### L 100.0100, L506.1000, L501.9985, L500.4050, L500.4100, L501.9520, L3100.5055, L506.0400, L3100.5310 #### [facility] [address] [facility] [place], [place], [address] RDW SD 45.4 fl High 35.1-43.9 [facility] Comment on above: Performed By: #### L 100.0100, L506.1000, L501.9985, L500.4050, L500.4100, L501.9520, L3100.5055, L506.0400, L3100.5310 #### [facility] [address] [place], [address] WBC (Bld) [#/Vol] 8.5 10*3/uL Normal 4.4-11.0 [facility] Comment on above: Performed By: #### L 100.0100, L506.1000, L501.9985, L500.4050, L500.4100, L501.9520, L3100.5055, L506.0400, L3100.5310 #### [facility] [address] [place], [address] [address] [facility] 12-16-2024 Albumin [Mass/Vol] 3.8 g/dL Normal 3.2-5.0 [facility] Comment on above: Performed By: #### L 100.0100, L506.1000, L501.9985, L500.4050, L500.4100, L501.9520, L3100.5055, L506.0400, L3100.5310 #### [facility] [address] [place], [address] Albumin/Globulin [Mass ratio] 0.9 {ratio} Normal 0.9-2.4 [facility] Comment on above: Performed By: #### L 100.0100, L506.1000, L501.9985, L500.4050, L500.4100, L501.9520, L3100.5055, L506.0400, L3100.5310 #### [facility] [address] [place], [place], [id number] ALK P 89 U/L Normal 45-117 [facility] Comment on above: Performed By: #### L 100.0100, L506.1000, L501.9985, L500.4050, L500.4100, L501.9520, L3100.5055, L506.0400, L3100.5310 #### [facility] [address] [place], [address] ALT [Catalytic activity/Vol] 74 U/L High 13-56 [facility] Comment on above: Performed By: #### L 100.0100, L506.1000, L501.9985, L500.4050, L500.4100, L501.9520, L3100.5055, L506.0400, L3100.5310 #### [facility] [address] [place], [address] AST [Catalytic activity/Vol] 35 U/L Normal 15-37 [facility] Comment on above: Performed By: #### L 100.0100, L506.1000, L501.9985, L500.4050, L500.4100, L501.9520, L3100.5055, L506.0400, L3100.5310 #### [facility] [address] [place], [address] Bilirubin [Mass/Vol] 0.70 mg/dL Normal 0.20-1.00 [facility] Comment on above: Result Comment: For patients on eltrombopag therapy, use of Dimension [place] TBIL is not recommended. Performed By: #### L 100.0100, L506.1000, L501.9985, L500.4050, L500.4100, L501.9520, L3100.5055, L506.0400, L3100.5310 #### [facility] [address] [place], [address] BUN/CRE 7.7 RATIO Low 10-20 [facility] Comment on above: Performed By: #### L 100.0100, L506.1000, L501.9985, L500.4050, L500.4100, L501.9520, L3100.5055, L506.0400, L3100.5310 #### [facility] [address] [place], [place], [id number] (020 CA,Total 9.0 mg/dL Normal 8.5-10.1 [facility] Comment on above: Performed By: #### L 100.0100, L506.1000, L501.9985, L500.4050, L500.4100, L501.9520, L3100.5055, L506.0400, L3100.5310 #### [facility] [address] [place], [address] Chloride [Moles/Vol] 107 mmol/L Normal 98-107 [facility] Comment on above: Performed By: #### L 100.0100, L506.1000, L501.9985, L500.4050, L500.4100, L501.9520, L3100.5055, L506.0400, L3100.5310 #### [facility] [address] [place], [address] CO2 [Moles/Vol] 25.0 mmol/L Normal 21.0-32.0 [facility] Comment on above: Performed By: #### L 100.0100, L506.1000, L501.9985, L500.4050, L500.4100, L501.9520, L3100.5055, L506.0400, L3100.5310 #### [facility] [address] [place], [address] Creatinine [Mass/Vol] 0.92 mg/dL Normal 0.55-1.02 [facility] Comment on above: Result Comment: The validity of the calculated GFR GFRAA in patients over 70 years has not been determined. Clinical correlation is essential. Performed By: #### L 100.0100, L506.1000, L501.9985, L500.4050, L500.4100, L501.9520, L3100.5055, L506.0400, L3100.5310 #### [facility] [address] [place], [place], [id number] EST GFR - AA 95 mL/min Normal >60 [facility] Comment on above: Result Comment: Afri can Cymraes GFR Calc Performed By: #### L 100.0100, L506.1000, L501.9985, L500.4050, L500.4100, L501.9520, L3100.5055, L506.0400, L3100.5310 #### [facility] [address] [place], [place], [id number] GAP 7 Normal 5-15 [facility] Comment on above: Performed By: #### L 100.0100, L506.1000, L501.9985, L500.4050, L500.4100, L501.9520, L3100.5055, L506.0400, L3100.5310 #### [facility] [address] [place], [address] GFR/1.73 sq M.predicted among non-blacks MDRD (S/P/Bld) [Vol rate/Area] 78 mL/min/{1.73_m2} Normal >60 [facility] Comment on above: Result Comment: Non- GFR Calc Performed By: #### L 100.0100, L506.1000, L501.9985, L500.4050, L500.4100, L501.9520, L3100.5055, L506.0400, L3100.5310 #### [facility] [address] [place], [address] Globulin (S) [Mass/Vol] 4.1 g/dL Normal 2.2-4.2 [facility] Comment on above: Performed By: #### L 100.0100, L506.1000, L501.9985, L500.4050, L500.4100, L501.9520, L3100.5055, L506.0400, L3100.5310 #### [facility] [address] [place], [address] Glucose [Mass/Vol] 101 mg/dL Normal 74-106 [facility] Comment on above: Result Comment: Fast ing Glucose result from 100 to 125 mg/dL suggests IMPAIRED HOMEOSTASIS per A.D.A. criteria. Performed By: #### L 100.0100, L506.1000, L501.9985, L500.4050, L500.4100, L501.9520, L3100.5055, L506.0400, L3100.5310 #### [facility] [address] [place], [address] Potassium [Moles/Vol] 3.8 mmol/L Normal 3.5-5.1 [facility] Comment on above: Performed By: #### L 100.0100, L506.1000, L501.9985, L500.4050, L500.4100, L501.9520, L3100.5055, L506.0400, L3100.5310 #### [facility] [address] [place], [address] Sodium [Moles/Vol] 138 mmol/L Normal 136-145 [facility] Comment on above: Performed By: #### L 100.0100, L506.1000, L501.9985, L500.4050, L500.4100, L501.9520, L3100.5055, L506.0400, L3100.5310 #### [facility] [address] [place], [address] T PROT 7.9 g/dL Normal 6.4-8.2 [facility] Comment on above: Performed By: #### L 100.0100, L506.1000, L501.9985, L500.4050, L500.4100, L501.9520, L3100.5055, L506.0400, L3100.5310 #### [facility] [address] [place], [address] Urea nitrogen [Mass/Vol] 7 mg/dL Normal 7-18 [facility] Comment on above: Performed By: #### L 100.0100, L506.1000, L501.9985, L500.4050, L500.4100, L501.9520, L3100.5055, L506.0400, L3100.5310 #### [facility] [address] [place], [address] FSH and LHon 12-16-2024 FSH 1.2 mIU/mL Normal [facility] Comment on above: Result Comment: NORMAL REFERENCE RANGES FEMALE FOLLICULAR 2.3 - 12.6 mIU/mL MID-CYCLE PEAK 5.2 - 17.5 mIU/mL LUTEAL 1.7 - 12.9 mIU/mL POST-MENOPAUSAL ON MHT 5.9 - 72.8 mIU/mL NOT ON MHT 12.7 - 132.2 mlU/mL MALE 0.7 - 10.8 mIU/mL Performed By: #### L 100.0100, L506.1000, L501.9985, L500.4050, L500.4100, L501.9520, L3100.5055, L506.0400, L3100.5310 #### [facility] [address] [place], [place], [id number] LH 1.0 mIU/mL Normal [facility] Comment on above: Result Comment: NORMAL REFERENCE RANGES FEMALE FOLLICULAR 1.9 - 26.2 mIU/mL MID-CYCLE PEAK 22.8 - 76.1 mIU/mL LUTEAL 0.6 - 16.6 mIU/mL POST-MENOPAUSAL ON MHT 1.1 - 52.4 mIU/mL NOT ON MHT 8.6 - 61.8 mIU/mL MALE 1.2 - 10.6 mIU/mL Performed By: #### L 100.0100, L506.1000, L501.9985, L500.4050, L500.4100, L501.9520, L3100.5055, L506.0400, L3100.5310 #### [facility] [address] [place], [place], [address] Hemoglobin A1con 12-16-2024 HbA1c (Bld) [Mass fraction] 5.3 % Normal 3.8-5.6 [facility] Comment on above: Result Comment: Norm al < 5.7 % Prediabetic 5.7 - 6.4 % Diabetic >or= 6.5 % Please note range changes. Performed By: #### L 100.0100, L506.1000, L501.9985, L500.4050, L500.4100, L501.9520, L3100.5055, L506.0400, L3100.5310 #### [facility] [address] [place], [address] Lipid Profileon 12-16-2024 Cholesterol [Mass/Vol] 175 mg/dL Normal 200 [facility] Comment on above: Result Comment: <200 mg/dL Desirable 200-240 mg/dL Borderline >240 mg/dL High Risk Performed By: #### L 100.0100, L506.1000, L501.9985, L500.4050, L500.4100, L501.9520, L3100.5055, L506.0400, L3100.5310 #### [facility] [address] [place], [place], [address] Cholesterol in HDL [Mass/Vol] 38 mg/dL Low [facility] Comment on above: Result Comment: The drugs N-Acetylcysteine and Metamizole may falsely depress this assay. Reference Range HDL <40 mg/dL Low HDL Cholesterol HDL >or= 60 mg/dL High HDL Cholesterol Performed By: #### L 100.0100, L506.1000, L501.9985, L500.4050, L500.4100, L501.9520, L3100.5055, L506.0400, L3100.5310 #### [facility] [address] [place], [address] Cholesterol in LDL [Mass/Vol] 118 mg/dL Normal 0-130 [facility] Comment on above: Performed By: #### L 100.0100, L506.1000, L501.9985, L500.4050, L500.4100, L501.9520, L3100.5055, L506.0400, L3100.5310 #### [facility] [address] [place], [address] Cholesterol in VLDL [Mass/Vol] 19 mg/dL Normal 5-40 [facility] Comment on above: Performed By: #### L 100.0100, L506.1000, L501.9985, L500.4050, L500.4100, L501.9520, L3100.5055, L506.0400, L3100.5310 #### [facility] [address] [place], [address] Triglyceride [Mass/Vol] 96 mg/dL Normal [facility] Comment on above: Result Comment: The drugs N-Acetylcysteine and Metamizole may falsely depress this assay. Serum Triglycerides Reference Interval Normal <150 mg/dL Borderline high 150 - 199 mg/dL High 200 - 499 mg/dL Very High > or = 500 mg/dL Performed By: #### L 100.0100, L506.1000, L501.9985, L500.4050, L500.4100, L501.9520, L3100.5055, L506.0400, L3100.5310 #### [facility] [address] [place], [address] Thyroid Stim Hormone (TSH)on 12-16-2024 TSH 6.410 uIU/mL High 0.358-3.740 [facility] Comment on above: Performed By: #### L 100.0100, L506.1000, L501.9985, L500.4050, L500.4100, L501.9520, L3100.5055, L506.0400, L3100.5310 #### [facility] [address] [place], [address] Vitamin D,25 Hydroxyon 12-16 Vitamin D 25-OH 10.5 ng/mL Normal [facility] Comment on above: Result Comment: Mayela min D 25(OH) Status Range Deficiency <20 ng/mL (50nmol/L) Insufficiency 20 - 30 ng/mL (50 - 75 nmol/L) Sufficiency 30 - 100 ng/mL (75 - 250 nmol/L) Toxicity >100 ng/mL (>250 nmol/L) Performed By: #### L 100.0100, L506.1000, L501.9985, L500.4050, L500.4100, L501.9520, L3100.5055, L506.0400, L3100.5310 #### [facility] [address] [facility] [place], [address] Urine Cultureon 12-02-2024 [facility] Staphylococcus aureu s [place] Count 50,000-80,000 Staphylococcus aureus: REACTION cefOXitin Susc Islt Doxycycline Islt SHIVANI <=0.5 S Clindamycin.induced Susc Islt NEG Gentamicin Islt SHIVANI <=0.5 S Linezolid Islt SHIVANI 2 S Moxifloxacin Islt SHIVANI <=0.25 S Nitrofurantoin Islt SHIVANI <=16 S Oxacillin Susc Islt 0.5 S Tetracycline Islt SHIVANI <=1 S TMP SMX Islt SHIVANI <=10 S Vancomycin Islt SHIVANI <=0.5 S Normal [facility] Comment on above: Performed By: #### M 100.2200 #### [facility] [address] [place], [address] Abdomen/Pelvis without Conto n 11-30-2024 Abdomen/Pelvis without Cont [facility] Imaging Services [address] [place], [place] [id number] [phone] Abdomen/Pelvis without Cont MR#: [id number] Acct: [id number] Name: YOKASTA PRETTY Rep #: [id number] : 1995 F 29 From: Kalani Henriquez MD PCP: Dr. Magnolia Chen MD Status: REG ER Study: Abdomen/Pelvis without Cont Date of Exam: 11/03 Exam# [id number] Ordering Dr: Darion Vega MD [id number] EXAM: CT ABDOMEN AND PELVIS WITHOUT INTRAVENOUS [...] Signed: Kalani Henriquez MD at 21:05 EST Reading Location ID and State: [facility] / OR Tel , Service support , CC: Dr. Magnolia Chen MD; Dr. Darion Vega MD Pharmacy Service Associate: Signed Normal [facility] CBC W/Diff, Automatedon 12-3 0-2023 Absolute Lymph 2.51 X10 3/uL Normal 0.83-4.51 [facility] Comment on above: Performed By: #### M 100.2200 #### [facility] [address] [place], [address] Absolute Neut 6.9 X10 3/uL Normal 2.0-7.7 [facility] Comment on above: Performed By: #### M 100.2200 #### [facility] [address] [place], [address] Basophils/100 WBC (Bld) 0.6 % Normal 0-1 [facility] Comment on above: Performed By: #### M 100.2200 #### [facility] [address] [place], [address] Eosinophils/100 WBC (Bld) 1.7 % Normal 0-5 [facility] Comment on above: Performed By: #### M 100.2200 #### [facility] [address] [place], [address] Erythrocyte distribution width (RBC) [Ratio] 15.3 % High 11.6-14.6 [facility] Comment on above: Performed By: #### M 100.2200 #### [facility] [address] [place], [address] Hematocrit (Bld) [Volume fraction] 40.5 % Normal 37-47 [facility] Comment on above: Performed By: #### M 100.2200 #### [facility] [address] [place], [address] Hemoglobin (Bld) [Mass/Vol] 12.7 g/dL Normal 12.0-15.0 [facility] Comment on above: Performed By: #### M 100.2200 #### [facility] [address] [place], [address] IG% 0.400 Normal 0.0-0.9 [facility] Comment on above: Result Comment: IG% - Immature Granulocytes (promyelocytes, myelocytes and metamyelocytes) > 1% indicates that a LEFT SHIFT is Present. Performed By: #### M 100.2200 #### [facility] [address] [place], [address] Lymphocytes/100 WBC (Bld) 23.9 % Normal 19-41 [facility] Comment on above: Performed By: #### M 100.2200 #### [facility] [address] [place], [address] MCH (RBC) [Entitic mass] 25.2 pg Low 27.0-32.0 [facility] Comment on above: Performed By: #### M 100.2200 #### [facility] [address] [place], [address] MCHC (RBC) [Mass/Vol] 31.4 g/dL Low 32-36 [facility] Comment on above: Performed By: #### M 100.2200 #### [facility] [address] [place], [address] MCV (RBC) [Entitic vol] 80.4 fL Low 81-99 [facility] Comment on above: Performed By: #### M 100.2199 #### [facility] [address] [place], [address] Monocytes/100 WBC (Bld) 7.7 % Normal 0-10 [facility] Comment on above: Performed By: #### M 100.220 #### [facility] [address] [place], [address] Neutrophils/100 WBC (Bld) 65.7 % Normal 47-70 [facility] Comment on above: Performed By: #### M 100.2199 #### [facility] [address] [place], [address] Nucleated RBC (Bld) [#/Vol] 0 10*3/uL Normal 0-5 [facility] Comment on above: Performed By: #### M 100.2199 #### [facility] [address] [place], [address] Platelet mean volume (Bld) [Entitic vol] 9.7 fL Normal 6.2-12.0 [facility] Comment on above: Performed By: #### M 100.2199 #### [facility] [address] [place], [address] Platelets (Bld) [#/Vol] 516 10*3/uL High 150-450 [facility] Comment on above: Performed By: #### M 100.2199 #### [facility] [address] [place], [address] RBC (Bld) [#/Vol] 5.04 10*6/uL Normal 4.2-5.4 [facility] Comment on above: Performed By: #### M 100.2199 #### [facility] [address] [place], [address] RDW SD 44.3 fl High 35.1-43.9 [facility] Comment on above: Performed By: #### M 100.2200 #### [facility] [address] [place], [place], [address] WBC (Bld) [#/Vol] 10.5 10*3/uL Normal 4.4-11.0 [facility] Comment on above: Performed By: #### M 100.2200 #### [facility] [address] [place], [place], [address] CNOVon 11-30-2024 CNOV Office Visit (UCWSTR ) YOKASTA PRETTY ([id number]) 1995 F Date Time Provider Department 11/30/24 4:15 PM JASON BETTENCOURT [facility] During your visit today, we recorded the following information about you: Temperature Pulse Respiration Blood pressure 99.3 degrees 103/minute 22/minute 132/68 Weight 124.1 kg Jason Bettencourt MD 11/30/2024 4:07 PM Addendum Patient [...] and appendicitis. Her will take her to [facility] ED. Jason Bettencourt MD Allergies As of Date: 11/30/2024 Noted Allergy Reaction ABILIFY (ARIPIPRAZOLE) 03/05/2016 4 - Hives Date Reviewed: 11/30/2024 Reviewed by: Jossy Sanders MA - Fully Assessed Reason for Visit: Urinary Problem [252] Cmt: Nausea, burning, frequency, lower back pain x 2 weeks Primary Visit Diagnosis:Urinary frequency [R35.0] Other Visit Diagnoses:Acute right flank pain [R10.9] Dizziness [R42] Order(s):UA DIP, URINE (POC) [2536444] Order #: [id number]. #[id number] Prescriptions as of 11/30/2024 - omeprazole (PRILOSEC) [...] (Discontinued) Reported on 11/30/2024 - PNV Comb No.39-Shhz-Dbiuh Acid (PRENATABS FA) 29-1 mg tab (Discontinued) Reported on 03/25/2024 LOS History for Encounter --- Level of Service: OFFICE/OUTPATIENT ESTABLISHED LOW MDM 20 MIN[07132] Date AND Time: 11-30-2024 4:02 PM Recorded by User: JASON BETTENCOURT Encounter Status:Closed by JASON BETTENCOURT on 11/30/24 Normal [facility] Metabolic Prof pierre 11-30-2024 Albumin [Mass/Vol] 4.1 g/dL Normal 3.2-5.0 [facility] Comment on above: Performed By: #### M 100.1784 #### [facility] [address] [place], [place], [id number] Albumin/Globulin [Mass ratio] 1.0 {ratio} Normal 0.9-2.4 [facility] Comment on above: Performed By: #### M 100.2200 #### [facility] [address] [place], [address] ALK P 98 U/L Normal 45-117 [facility] Comment on above: Performed By: #### M 100.2200 #### [facility] [address] [place], [address] ALT [Catalytic activity/Vol] 78 U/L High 13-56 [facility] Comment on above: Performed By: #### M 100.2200 #### [facility] [address] [place], [address] AST [Catalytic activity/Vol] 25 U/L Normal 15-37 [facility] Comment on above: Performed By: #### M 100.2200 #### [facility] [address] [place], [address] Bilirubin [Mass/Vol] 0.70 mg/dL Normal 0.20-1.00 [facility] Comment on above: Result Comment: For patients on eltrombopag therapy, use of Dimension [place] TBIL is not recommended. Performed By: #### M 100.2200 #### [facility] [address] [place], [address] BUN/CRE 11.4 RATIO Normal 10-20 [facility] Comment on above: Performed By: #### M 100.2200 #### [facility] [address] [place], [address] CA,Total 9.6 mg/dL Normal 8.5-10.1 [facility] Comment on above: Performed By: #### M 100.2200 #### [facility] [address] [place], [address] Chloride [Moles/Vol] 106 mmol/L Normal 98-107 [facility] Comment on above: Performed By: #### M 100.2200 #### [facility] [address] [place], [address] CO2 [Moles/Vol] 29.0 mmol/L Normal 21.0-32.0 [facility] Comment on above: Performed By: #### M 100.2200 #### [facility] [address] [place], [address] Creatinine [Mass/Vol] 0.88 mg/dL Normal 0.55-1.02 [facility] Comment on above: Result Comment: The validity of the calculated GFR GFRAA in patients over 70 years has not been determined. Clinical correlation is essential. Performed By: #### M 100.2200 #### [facility] [address] [place], [address] ECRCL 133.54 ml/min Normal [facility] Comment on above: Performed By: #### M 100.2200 #### [facility] [address] [place], [address] EST GFR - AA 99 mL/min Normal >60 [facility] Comment on above: Result Comment: Afri can Cymraes GFR Calc Performed By: #### M 100.2200 #### [facility] [address] [place], [address] GAP 4 Low 5-15 [facility] Comment on above: Performed By: #### M 100.2200 #### [facility] [address] [place], [address] GFR/1.73 sq M.predicted among non-blacks MDRD (S/P/Bld) [Vol rate/Area] 82 mL/min/{1.73_m2} Normal >60 [facility] Comment on above: Result Comment: Non- GFR Calc Performed By: #### M 100.2200 #### [facility] [address] [place], [address] Globulin (S) [Mass/Vol] 4.0 g/dL Normal 2.2-4.2 [facility] Comment on above: Performed By: #### M 100.2200 #### [facility] [address] [place], [address] Glucose [Mass/Vol] 75 mg/dL Normal 74-106 [facility] Comment on above: Performed By: #### M 100.2200 #### [facility] [address] [place], [address] Potassium [Moles/Vol] 3.8 mmol/L Normal 3.5-5.1 [facility] Comment on above: Performed By: #### M 100.2200 #### [facility] [address] [place], [address] Sodium [Moles/Vol] 139 mmol/L Normal 136-145 [facility] Comment on above: Performed By: #### M 100.2200 #### [facility] [address] [place], [address] T PROT 8.1 g/dL Normal 6.4-8.2 [facility] Comment on above: Performed By: #### M 100.2200 #### [facility] [address] [place], [address] Urea nitrogen [Mass/Vol] 10 mg/dL Normal 7-18 [facility] Comment on above: Performed By: #### M 100.2200 #### [facility] [address] [place], [address] Emergency Department Summary on 11-30-2024 Emergency Department Summary [facility] Medical Records Department [address] [place] [address] Emergency Department Summary 11/30/24 MR#: [id number] Acct: [id number] Name: YOKASTA PRETTY Rep #: [id number] : 1995 29 From: Darion Vega MD [...] it as directed for 3 days. 12/02/24 0745 Cosigner Signature (if applicable): cc: Dr. Magnolia [...] house current occupational status: employed current occupation: [employer] sexually active: Yes Smoking Status: Current every [...] or p (more content not included)... Normal [facility] ,Serum,hCG Quali.on 11-30-2024 HCG, SERUM QUAL Negative Normal [facility] Comment on above: Performed By: #### M 100.2200 #### [facility] [address] [place], [place], [id number] UA DIP, URINE (POC)on 2023 BILIRUBIN UA (POCT) Negative Negative [facility] CLARITY UA (POCT) Cloudy [facility] COLOR UA (POCT) Dark yellow [facility] GLUCOSE UA (POCT) Negative Negative mg/dL [facility] Hemoglobin Ql (U) Trace-intact Abnormal Negative [facility] Interpretation and review of laboratory results Abnormal [facility] KETONE UA (POCT) Negative Negative mg/dL [facility] LEUKOCYTES UA (POCT) Moderate Abnormal Negative [facility] NITRITE UA (POCT) Positive Abnormal Negative [facility] PH UA (POCT) 6.0 4.5 - 8.0 [facility] Protein Ql (U) 30 mg/dL Abnormal Negative [facility] SPECIFIC GRAVITY UA (POCT) 1.025 1.005 - 1.030 [facility] UROBILINOGEN UA (POCT) 0.2 Normal E.U./d L [facility] Location:[facility], [address] [place] [address], [place], [address] [facility] POINT OF CARE [facility] Urinalysis, Completeon 11-30 AMORPHOUS 1+ URATE Normal [facility] Comment on above: Order Comment: YRIS TER SPECIMEN Performed By: #### L 400.0001 ####[facility] [address] [place], [address] EPI,SQUAMOUS 0-5 SEEN Normal 5-10 [facility] Comment on above: Order Comment: YRIS TER SPECIMEN Performed By: #### L 400.0001 ####[facility] [address] [place], [address] RBC 0-5 SEEN Normal 0-5 [facility] Comment on above: Order Comment: YRIS TER SPECIMEN Performed By: #### L 400.0001 ####[facility] [address] [place], [address] WBC 5-10 SEEN Normal 0-5 [facility] Comment on above: Order Comment: YRIS TER SPECIMEN Performed By: #### L 400.0001 ####[facility] [address] [place], [address] BACTERIA 0 SEEN Normal None Seen [facility] Comment on above: Order Comment: YRIS TER SPECIMEN Performed By: #### L 400.0001 ####[facility] [address] [place], [address] Mucus Ql (Urine sed) 0 SEEN Normal [facility] Comment on above: Order Comment: YRIS TER SPECIMEN Performed By: #### L 400.0001 ####[facility] [address] [place], [address] AMORPHOUS 2+ Normal [facility] Comment on above: Order Comment: CLEAN CATCH Performed By: #### L 400.0001 ####[facility] [address] [place], [address] BACTERIA 2+ /hpf Normal None Seen [facility] Comment on above: Order Comment: CLEAN CATCH Performed By: #### L 400.0001 ####[facility] [address] [place], [address] EPI,SQUAMOUS > 100 SEEN Normal 5-10 [facility] Comment on above: Order Comment: CLEAN CATCH Performed By: #### L 400.0001 ####[facility] [address] [place], [address] Mucus Ql (Urine sed) 2+ /hpf Normal [facility] Comment on above: Order Comment: CLEAN CATCH Performed By: #### L 400.0001 ####[facility] [address] [place], [address] WBC >100 SEEN Normal 0-5 [facility] Comment on above: Order Comment: CLEAN CATCH Performed By: #### L 400.0001 ####[facility] [address] [place], [address] BACTERIA Normal None Seen [facility] Comment on above: Order Comment: CLEAN CATCH Result Comment: DUPL ICATE Performed By: #### M 100.2200 #### [facility] [address] [place], [address] BILIRUBIN URINE Normal Negative [facility] Comment on above: Order Comment: CLEAN CATCH Result Comment: DUPL ICATE Performed By: #### M 100.2200 #### [facility] [address] [place], [address] Clarity (U) Normal Clear [facility] Comment on above: Order Comment: CLEAN CATCH Result Comment: DUPL ICATE Performed By: #### M 100.2200 #### [facility] [address] [place], [address] Color (U) Normal Yellow [facility] Comment on above: Order Comment: CLEAN CATCH Result Comment: DUPL ICATE Performed By: #### M 100.2200 #### [facility] [address] [place], [address] EPI,SQUAMOUS Normal 5-10 [facility] Comment on above: Order Comment: CLEAN CATCH Result Comment: DUPL ICATE Performed By: #### M 100.2200 #### [facility] [address] [place], [address] GLUCOSE, UR Normal Normal [facility] Comment on above: Order Comment: CLEAN CATCH Result Comment: DUPL ICATE Performed By: #### M 100.2200 #### [facility] [address] [place], [address] KETONE UR Normal Negative [facility] Comment on above: Order Comment: CLEAN CATCH Result Comment: DUPL ICATE Performed By: #### M 100.2200 #### [facility] [address] [place], [address] LEUK ESTERASE Normal Negative [facility] Comment on above: Order Comment: CLEAN CATCH Result Comment: DUPL ICATE Performed By: #### M 100.2200 #### [facility] [address] [place], [address] Mucus Ql (Urine sed) Normal [facility] Comment on above: Order Comment: CLEAN CATCH Result Comment: DUPL ICATE Performed By: #### M 100.2200 #### [facility] [address] [place], [address] Nitrite Ql (U) Normal Negative [facility] Comment on above: Order Comment: CLEAN CATCH Result Comment: DUPL ICATE Performed By: #### M 100.2200 #### [facility] [address] [place], [address] OCCULT BLOOD-UR Normal Negative [facility] Comment on above: Order Comment: CLEAN CATCH Result Comment: DUPL ICATE Performed By: #### M 100.2200 #### [facility] [address] [place], [address] pH UR Normal 5.0 - 8.0 [facility] Comment on above: Order Comment: CLEAN CATCH Result Comment: DUPL ICATE Performed By: #### M 100.2200 #### [facility] [address] [place], [address] PROT DIPSTX Normal Negative [facility] Comment on above: Order Comment: CLEAN CATCH Result Comment: DUPL ICATE Performed By: #### M 100.2200 #### [facility] [address] [place], [address] RBC Normal 0-5 [facility] Comment on above: Order Comment: CLEAN CATCH Result Comment: DUPL ICATE Performed By: #### M 100.2200 #### [facility] [address] [place], [address] SP.GR. DIPSTX Normal 1.002-1.030 [facility] Comment on above: Order Comment: CLEAN CATCH Result Comment: DUPL ICATE Performed By: #### M 100.2200 #### [facility] [address] [place], [address] UR Preservative Normal [facility] Comment on above: Order Comment: CLEAN CATCH Result Comment: DUPL ICATE Performed By: #### M 100.2200 #### [facility] [address] [place], [address] UROBILI Normal Normal [facility] Comment on above: Order Comment: CLEAN CATCH Result Comment: DUPL ICATE Performed By: #### M 100.2200 #### [facility] [address] [place], [address] WBC Normal 0-5 [facility] Comment on above: Order Comment: CLEAN CATCH Result Comment: DUPL ICATE Performed By: #### M 100.2200 #### [facility] [address] [place], [address] BILIRUBIN URINE Negative Normal Negative [facility] Comment on above: Order Comment: CLEAN CATCH Performed By: #### L 400.0001 ####[facility] [address] [place], [address] Clarity (U) Sl. Cloudy Normal Clear [facility] Comment on above: Order Comment: CLEAN CATCH Performed By: #### L 400.0001 ####[facility] [address] [place], [address] Color (U) Yellow Normal Yellow [facility] Comment on above: Order Comment: CLEAN CATCH Performed By: #### L 400.0001 ####[facility] [address] [place], [address] GLUCOSE, UR Normal Normal Normal [facility] Comment on above: Order Comment: CLEAN CATCH Performed By: #### L 400.0001 ####[facility] [address] [place], [address] KETONE UR Negative Normal Negative [facility] Comment on above: Order Comment: CLEAN CATCH Performed By: #### L 400.0001 ####[facility] [address] [place], [address] LEUK ESTERASE 500 /ul Abnormal Negative [facility] Comment on above: Order Comment: CLEAN CATCH Performed By: #### L 400.0001 ####[facility] [address] [place], [address] Nitrite Ql (U) Positive Abnormal Negative [facility] Comment on above: Order Comment: CLEAN CATCH Performed By: #### L 400.0001 ####[facility] [address] [place], [address] OCCULT BLOOD-UR 10 /ul Abnormal Negative [facility] Comment on above: Order Comment: CLEAN CATCH Performed By: #### L 400.0001 ####[facility] [address] [place], [address] pH UR 7.0 Normal 5.0 - 8.0 [facility] Comment on above: Order Comment: CLEAN CATCH Performed By: #### L 400.0001 ####[facility] [address] [place], [address] PROT DIPSTX 30 mg/dl Abnormal Negative [facility] Comment on above: Order Comment: CLEAN CATCH Performed By: #### L 400.0001 ####[facility] [address] [place], [address] SP.GR. DIPSTX 1.025 Normal 1.002-1.030 [facility] Comment on above: Order Comment: CLEAN CATCH Performed By: #### L 400.0001 ####[facility] [address] [place], [address] UROBILI 1 mg/dl Abnormal Normal [facility] Comment on above: Order Comment: CLEAN CATCH Performed By: #### L 400.0001 ####[facility] [address] [place], [address] RBC 0 SEEN Normal 0-5 [facility] Comment on above: Order Comment: CLEAN CATCH Performed By: #### L 400.0001 ####[facility] [address] [place], [address] CNOVon 08-18-2024 CNOV Office Visit (UCWSTR ) YOKASTA PRETTY ([id number]) 1995 F Date Time Provider Department 08/18/24 7:30 PM NIGHAT QIU [facility] During your visit today, we recorded the following information about you: Nighat Qiu APRN.CNP 08/18/2024 7:30 PM Signed Called to triage patient for allergic reaction Endorses that she developed rash on face at around 0530 this morning Presents stating that she is having sensations that her throat is swelling up Discussed limitations of express care Referred to ED for further monitoring Allergies As of Date: 08/18/2024 Noted Allergy Reaction ABILIFY (ARIPIPRAZOLE) 03/05/2016 4 - Hives Date Reviewed: 03/25/2024 Reviewed by: Luz Maria Hanna MA - Fully Assessed Primary Visit Diagnosis:Allergic reaction, initial encounter [T78.40XA] Prescriptions as of 08/18/2024 - hydrOXYzine pamoate (VISTARIL) 25 mg capsule Take 1 capsule by mouth three times daily as needed. - omeprazole (PRILOSEC) 20 mg capsule Take 1 capsule by mouth once daily. - PNV Comb No.93-Lrcw-Bcvhs Acid (PRENATABS FA) 29-1 mg tab Take [...] Status:Closed by NIGHAT QIU on 08/18/24 Normal [facility] [place] STREP A MOLECULAR (POC)on Procedural Control Valid [facility] Strep A (POCT) Negative Negative [facility] XR Chest PA and Lateralon IMPRESSION: No acute radiographic abnormality. Pharmacy Service Associate: PSCB Transcribe Date/Time: Mar 25 2024 8:32A Dictated by : SHEYLA MEREDITH DO This examination was interpreted and the report reviewed and electronically signed by: SHEYLA MEREDITH DO on Mar 25 2024 8:33AM [facility] DIVISION OF RADIOLOGY * * *Final [...] soft tissues: Unremarkable. DIVISION OF RADIOLOGY Provider, Cc Jeanette [facility] - 03/25/2024 * * *Final Report* * [...] Unremarkable. IMPRESSION IMPRESSION: No acute radiographic abnormality. Pharmacy Service Associate: PSCB Transcribe Date/Time: Mar 25 2024 8:32A Dictated by : SHEYLA MEREDITH DO This examination was interpreted and the report reviewed and electronically signed by: SHEYLA MEREDITH DO on Mar 25 2024 8:33AM EST [facility] Radiology Study observation (narrative) Jessica wade [facility] XR Chest PA and LateralOrder ed By: Ccf Provider on 03-25-2024 [facility] Absolute lymphocyte countOrd ered By: Nighat Maloney on 2023 Lymphocytes Auto (Unsp spec) [#/Vol] 1.69 10*3/uL 0.83-4.51 [facility] Basophil percentageOrdered B y: Nighat Maloney on 2023 Basophils/100 WBC (Bld) 0.2 % 0-1 [facility] Eosinophils/100 WBC (Bld) 0.2 % 0-5 [facility] Neutrophils (Bld) [#/Vol] 12.3 10*3/uL 2.0-7.7 [facility] Neutrophils/100 WBC (Bld) 81.4 % 47-70 [facility] WBC (Bld) [#/Vol] 15.1 10*3/uL 4.4-11.[facility] erythrocytes count (nu mber/volume)Ordered By: Nighat Maloney on 2023 RBC (Bld) [#/Vol] 3.46 10*6/uL 4.2-5.4 [facility] Blood hemoglobin measurement (mass/volume)Ordered By: Nighat Maloney on 2023 Hemoglobin (Bld) [Mass/Vol] 9.6 g/dL 12.0-15.0 [facility] Blood lymphocytes/100 leukoc ytesOrdered By: Nighat Maloney on 2023 Lymphocytes/100 WBC (Bld) 11.2 % 19-41 [facility] Blood monocytes/100 leukocyt esOrdered By: Nighat Maloney on 2023 Monocytes/100 WBC (Bld) 6.5 % 0-10 [facility] Blood platelet mean volumeOr dered By: Nighat Maloney on 2023 Platelet mean volume (Bld) [Entitic vol] 10.1 fL 6.2-12.0 [facility] Determination of erythrocyte mean corpuscular volume (MCV)Ordered By: Nighat Maloney on 2023 MCV (RBC) [Entitic vol] 88.2 fL 81-99 [facility] Hematocrit Auto (Bld) [Volum e fraction]Ordered By: Nighat Maloney on 2023 Hematocrit (Bld) [Volume fraction] 30.5 % 37-47 [facility] Laboratory - Hematology and Cell countsOrdered By: Nighat Maloney on 2023 Erythrocyte distribution width (RBC) [Entitic vol] 49.1 fL 35.1-43.9 [facility] Erythrocyte distribution width (RBC) [Ratio] 15.4 % 11.6-14.6 [facility] Immature granulocytes/100 WBC (Bld) 0.500 % 0.0-0.9 [facility] Comment on above: IG% - Immature Granu locytes (promyelocytes, myelocytes and metamyelocytes) > 1% indicates that a LEFT SHIFT is Present. MCH (RBC) [Entitic mass] 27.7 pg 27.0-32.0 [facility] Nucleated RBC/100 WBC (Bld) [Ratio] 0 % 0-5 [facility] MCHC Auto (RBC) [Mass/Vol]Or dered By: Nighat Maloney on 2023 MCHC (RBC) [Mass/Vol] 31.5 g/dL 32-36 [facility] Platelets bldOrdered By: Jaci Maloney on 2023 Platelets (Bld) [#/Vol] 304 10*3/uL 150-450 [facility] No Panel InformationOrdered By: Nighat Maloney on 10-15-2023 Vaginal Amniotic Fluid Detection Positive Negative [facility] Comment on above: Amniotic fluid prese nt indicates rupture of Membranes. RESULTS CALLED TO JENELLE 10/15/23 1124 Petrona Cid.REPORT READ BACK BY JENELLE . Serum Treponema species anti body detectionOrdered By: Nighat Maloney on 10-15-2023 Treponema sp Ab Ql (S) Non-Reactive [facility] URINE OB DIP B/Oon 3 Glucose Ql (U) Negative Neg mg/dL [facility] Protein.monoclonal (U) [Mass/Vol] Negative Neg mg/dL [facility] No Panel InformationOrdered By: Bettie Blum on 10-10-2023 Vaginal Amniotic Fluid Detection Negative Negative [facility] Comment on above: Amniotic fluid not p resent indicates No Rupture of FetalMembranes at time of specimen collection. URINE OB DIP B/Oon 3 Glucose Ql (U) Negative Neg mg/dL [facility] Protein.monoclonal (U) [Mass/Vol] Negative Neg mg/dL [facility] URINE OB DIP B/Oon 3 Glucose Ql (U) Negative Neg mg/dL [facility] Protein.monoclonal (U) [Mass/Vol] Negative Neg mg/dL [facility] URINE OB DIP B/Oon 3 Glucose Ql (U) Negative Neg mg/dL [facility] Protein.monoclonal (U) [Mass/Vol] Negative Neg mg/dL [facility] No Panel InformationOrdered By: Bettie Blum on 09-22-2023 Vaginal Amniotic Fluid Detection Negative Negative [facility] Comment on above: Amniotic fluid not p resent indicates No Rupture of FetalMembranes at time of specimen collection. OBSTETRIC ULTRASOUND WHIon 1 [facility] URINE OB DIP B/Oon Glucose Ql (U) Negative Neg mg/dL [facility] Protein.monoclonal (U) [Mass/Vol] trace Neg mg/dL [facility] Basophil percentageOrdered B y: Roxanne Rowell on 08-17-2023 Basophil percentage 10-25 SEEN /hpf 0-5 [facility] WBC (Bld) [#/Vol] 10.4 10*3/uL 4.4-11.0 [facility] Bilirubin Test strip Ql (U)O rdered By: Roxanne Rowell on 08-17-2023 Bilirubin Ql (U) Negative Negative [facility] Blood erythrocytes count (nu mber/volume)Ordered By: Roxanne Rowell on 08-17-2023 RBC (Bld) [#/Vol] 3.96 10*6/uL 4.2-5.4 [facility] Blood hemoglobin measurement (mass/volume)Ordered By: Roxanne Rowell on 08-17-2023 Hemoglobin (Bld) [Mass/Vol] 11.6 g/dL 12.0-15.0 [facility] Blood platelet mean volumeOr dered By: Roxanne Rowell on 08-17-2023 Platelet mean volume (Bld) [Entitic vol] 10.4 fL 6.2-12.0 [facility] Culture, urineOrdered By: Meredith Rowell on 08-17-2023 Bacteria identified Cx Nom (U) Meth. resistant Staph. aureus [facility] Bacteria identified Cx Nom (U) Meth. resistant Staph. aureus [facility] Determination of erythrocyte mean corpuscular volume (MCV)Ordered By: Roxanne Rowell on 08-17-2023 MCV (RBC) [Entitic vol] 88.4 fL 81-99 [facility] Hematocrit Auto (Bld) [Volum e fraction]Ordered By: Roxanne Rowell on 08-17-2023 Hematocrit (Bld) [Volume fraction] 35.0 % 37-47 [facility] Ketones Test strip Ql (U)Ord ered By: Roxanne Rowell on 08-17-2023 Ketones Ql (U) Negative Negative [facility] Laboratory - Chemistry and C hemistry - challengeOrdered By: Roxanne Rowell on 09-16-2023 ALT [Catalytic activity/Vol] 29 U/L 13-56 [facility] - Hematology and Cell countsOrdered By: Roxanne Rowell on 08-17-2023 Erythrocyte distribution width (RBC) [Entitic vol] 47.0 fL 35.1-43.9 [facility] Erythrocyte distribution width (RBC) [Ratio] 14.6 % 11.6-14.6 [facility] MCH (RBC) [Entitic mass] 29.3 pg 27.0-32.0 [facility] MCHC Auto (RBC) [Mass/Vol]Or dered By: Roxanne Rowell on 08-17-2023 MCHC (RBC) [Mass/Vol] 33.1 g/dL 32-36 [facility] Mucus LM Ql (Urine sed)Order ed By: Roxanne Rowell on 08-17-2023 Mucus Ql (Urine sed) 1+ /hpf [facility] Nitrite Test strip Ql (U)Ord ered By: Roxanne Rowell on 08-17-2023 Nitrite Ql (U) Positive Negative [facility] No Panel InformationOrdered By: Roxanne Rowell on 08-17-2023 Estimated Creatinine Clearance Calc 137.70 ml/min [facility] Estimated GFR (MDRD) Amer 147 mL/min >60 [facility] Comment on above: GFR Calc Estimated GFR (MDRD) Non-Af Amer 121 mL/min >60 [facility] Comment on above: Non- GFR Calc Platelets bldOrdered By: Sherly Rowell on 08-17-2023 Platelets (Bld) [#/Vol] 362 10*3/uL 150-450 [facility] Protein Test strip Ql (U)Ord ered By: Roxanne Rowell on 08-17-2023 Protein Ql (U) 30 mg/dl Negative [facility] Serum or plasma creatinine m easurement (mass/volume)Ordered By: Roxanne Rowell on 08-17-2023 Creatinine [Mass/Vol] 0.63 mg/dL 0.55-1.02 [facility] Comment on above: The validity of the calculated GFR & GFRAA in patients over 70 years has not been determined. Clinical correlation is essential. Serum or plasma uric acid me asurement (mass/volume)Ordered By: Roxanne Rowell on 08-17-2023 Urate [Mass/Vol] 4.5 mg/dL 2.6-6.0 [facility] Comment on above: The drugs N-Acetylcy steine and Metamizole may falsely depress this assay. Squamous epithelial cells de tection in urine sediment by light microscopyOrdered By: Roxanne Rowell on 08-17-2023 Epithelial cells.squamous LM Ql (Urine sed) 0-5 SEEN /hpf 5-10 [facility] Thin prep Papanicolaou smear with manual screeningOrdered By: Roxanne Rowell on 08-17-2023 Thin prep Papanicolaou smear with manual screening 11 U/L 15-37 [facility] Urine blood detectionOrdered By: Roxanne Rowell on 08-17-2023 RBC Ql (U) 10 /ul Negative [facility] RBC Ql (U) 0-5 SEEN /hpf 0-5 [facility] Urine clarityOrdered By: Sherly Rowell on 08-17-2023 Clarity (U) Clear Clear [facility] Urine color determinationOrd ered By: Roxanne Rowell on 08-17-2023 Color (U) Yellow Yellow [facility] Urine creatinine measurement (mass/volume)Ordered By: Roxanne Rowell on 08-17-2023 Creatinine (U) [Mass/Vol] 246.00 mg/dL NO RANGE EST. [facility] Urine glucose detectionOrder ed By: Roxanne Rowell on 08-17-2023 Glucose Ql (U) Normal mg/dl Normal [facility] Urine leukocyte esterase det ection by dipstickOrdered By: Roxanne Rowell on 08-17-2023 Leukocyte esterase Test strip Ql (U) 500 /ul Negative [facility] Urine pHOrdered By: Roxanne Rowell on 08-17-2023 pH (U) 6.5 [pH] 5.0 - 8.0 [facility] Urine protein measurement (m ass/volume)Ordered By: Roxanne Rowell on 08-17-2023 Protein (U) [Mass/Vol] 59.0 mg/dL 0.0-11.8 [facility] Urine protein/creatinine mas s ratioOrdered By: Roxanne Rowell on 08-17-2023 Protein/Creatinine (U) [Mass ratio] 240 mg/g CRE 0-200 [facility] Urine sediment bacteria coun t by microscopy (number/high power field)Ordered By: Roxanne Rowell on 08-17-2023 Bacteria LM.HPF (Urine sed) [#/Area] 2 /[HPF] None Seen [facility] Urine specific gravity measu rementOrdered By: Roxanne Rowell on 08-17-2023 Specific gravity (U) [Rel density] 1.015 1.002-1.030 [facility] Urobilinogen Auto test strip Ql (U)Ordered By: Roxanne Rowell on 08-17-2023 Urobilinogen Ql (U) Normal mg/dl Normal [facility] URINE OB DIP B/Oon Glucose Ql (U) Negative Neg mg/dL [facility] Protein.monoclonal (U) [Mass/Vol] trace Neg mg/dL [facility] CBC panel Auto (Bld)on 07-23 Erythrocyte distribution width (RBC) [Ratio] 15.1 % High 11.5 - 15.0 % [facility] Hematocrit (Bld) [Volume fraction] 34.5 % Low 36.0 - 46.0 % [facility] Hemoglobin (Bld) [Mass/Vol] 11.6 g/dL 11.5 - 15.5 g/dL [facility] MCH (RBC) [Entitic mass] 29.4 pg 26.0 - 34.0 pg [facility] MCHC (RBC) [Mass/Vol] 33.6 g/dL 30.5 - 36.0 g/dL [facility] MCV (RBC) [Entitic vol] 87.6 fL 80.0 - 100.0 fL [facility] Nucleated RBC (Bld) [#/Vol] <0.01 k/uL [facility] Platelet mean volume (Bld) [Entitic vol] 9.6 fL 9.0 - 12.7 fL [facility] Platelets (Bld) [#/Vol] 368 10*3/uL 150 - 400 k /uL [facility] RBC (Bld) [#/Vol] 3.94 10*6/uL 3.90 - 5.2 0 m/uL [facility] WBC (Bld) [#/Vol] 10.33 10*3/uL 3.70 - 11 .00 k/uL [facility] Comprehensive metabolic 2000 panelon 07-23-2023 Albumin [Mass/Vol] 3.5 g/dL Low 3.9 - 4.9 g/dL [facility] ALP [Catalytic activity/Vol] 81 U/L 34 - 123 U/L [facility] ALT [Catalytic activity/Vol] 17 U/L 7 - 38 U/L [facility] Anion gap [Moles/Vol] 10 mmol/L 9 - 18 mmol/L [facility] AST [Catalytic activity/Vol] 12 U/L Low 13 - 35 U/L [facility] Bilirubin [Mass/Vol] 0.3 mg/dL 0.2 - 1 .3 mg/dL [facility] Calcium [Mass/Vol] 9.0 mg/dL 8.5 - 10. 2 mg/dL [facility] Chloride [Moles/Vol] 107 mmol/L High 97 - 10 5 mmol/L [facility] CO2 [Moles/Vol] 18 mmol/L Low 22 - 30 mmol/L [facility] Creatinine [Mass/Vol] 0.62 mg/dL 0.58 - 0.96 mg/dL [facility] Estimated Glomerular Filtration Rate 127 mL/min/1.73m >=60 mL/min/1.73m [facility] Glucose [Mass/Vol] 90 mg/dL 74 - 99 mg/dL [facility] Potassium [Moles/Vol] 4.0 mmol/L 3.7 - 5.1 mmol/L [facility] Protein [Mass/Vol] 6.4 g/dL 6.3 - 8.0 g/dL [facility] Sodium [Moles/Vol] 135 mmol/L Low 136 - 144 mmol/L [facility] Urea nitrogen [Mass/Vol] 5 mg/dL Low 7 - 21 mg/dL [facility] URINE OB DIP B/Oon 3 Glucose Ql (U) Negative Neg mg/dL [facility] Protein.monoclonal (U) [Mass/Vol] 30 mg/dL Neg mg/dL [facility] Comprehensive metabolic 2000 panelon 07-11-2023 Albumin [Mass/Vol] 3.6 g/dL Low 3.9 - 4.9 g/dL [facility] ALP [Catalytic activity/Vol] 120 U/L 34 - 123 U/L [facility] ALT [Catalytic activity/Vol] 18 U/L 7 - 38 U/L [facility] Anion gap [Moles/Vol] 9 mmol/L 9 - 18 mmol/L [facility] AST [Catalytic activity/Vol] 13 U/L 13 - 35 U/L [facility] Bilirubin [Mass/Vol] 0.3 mg/dL 0.2 - 1 .3 mg/dL [facility] Calcium [Mass/Vol] 9.2 mg/dL 8.5 - 10. 2 mg/dL [facility] Chloride [Moles/Vol] 107 mmol/L High 97 - 10 5 mmol/L [facility] CO2 [Moles/Vol] 18 mmol/L Low 22 - 30 mmol/L [facility] Creatinine [Mass/Vol] 0.61 mg/dL 0.58 - 0.96 mg/dL [facility] Estimated Glomerular Filtration Rate 127 mL/min/1.73m >=60 mL/min/1.73m [facility] Glucose [Mass/Vol] 99 mg/dL 74 - 99 mg/dL [facility] Potassium [Moles/Vol] 4.1 mmol/L 3.7 - 5.1 mmol/L [facility] Protein [Mass/Vol] 6.6 g/dL 6.3 - 8.0 g/dL Cl [facility] Sodium [Moles/Vol] 134 mmol/L Low 136 - 144 mmol/L [facility] Urea nitrogen [Mass/Vol] 7 mg/dL 7 - 21 mg/dL [facility] UA DIP, URINE (POC)on 2022 BILIRUBIN UA (POCT) Negative Negative [facility] CLARITY UA (POCT) Cloudy [facility] COLOR UA (POCT) Yellow [facility] GLUCOSE UA (POCT) Negative Negative mg/dL [facility] HEMOGLOBIN/BLOOD UA (POCT) Trace-intact Abnormal Negative [facility] KETONE UA (POCT) Negative Negative mg/dL [facility] LEUKOCYTES UA (POCT) Small Abnormal Negative [facility] NITRITE UA (POCT) Positive Abnormal Negative [facility] PH UA (POCT) 6.5 4.5 - 8.0 [facility] Protein Ql (U) 100 mg/dL Abnormal Negative mg/dL [facility] SPECIFIC GRAVITY UA (POCT) 1.025 1.005 - 1.030 [facility] UROBILINOGEN UA (POCT) 0.2 E.U./dL Normal E.U./ dL [facility] URINE OB DIP B/Oon 3 Glucose Ql (U) Negative Neg mg/dL [facility] Protein.monoclonal (U) [Mass/Vol] 30 mg/dL Neg mg/dL [facility] URINE OB DIP B/Oon 3 Glucose Ql (U) Negative Neg mg/dL [facility] Protein.monoclonal (U) [Mass/Vol] trace Neg mg/dL [facility] OBSTETRIC ULTRASOUND WHIon 0 06-07-2023 [facility] Basophil percentageOrdered B y: Mustapha Serrato on 06-03-2023 Basophil percentage 10-25 SEEN /hpf 0-5 [facility] Chloride [Moles/Vol] 111 mmol/L 98-107 [facility] Glucose [Mass/Vol] 88 mg/dL 74-106 [facility] Potassium [Moles/Vol] 3.6 mmol/L 3.5-5.1 [facility] Sodium [Moles/Vol] 140 mmol/L 136-145 [facility] Bilirubin Test strip Ql (U)O rdered By: Mustapha Serrato on 06-03-2023 Bilirubin Ql (U) Negative Negative [facility] Ketones Test strip Ql (U)Ord ered By: Mustapha Serrato on 06-03-2023 Ketones Ql (U) Negative Negative [facility] Laboratory - Chemistry and C hemistry - challengeOrdered By: Mustapha Serrato on 06-03-2023 CO2 [Moles/Vol] 25.0 mmol/L 21.0-32.0 [facility] Urea nitrogen/Creatinine [Mass ratio] 8.3 mg/mg 10-20 [facility] Mucus LM Ql (Urine sed)Order ed By: Mustapha Serrato on 06-03-2023 Mucus Ql (Urine sed) 0 SEEN /hpf [facility] Nitrite Test strip Ql (U)Ord ered By: Mustapha Serrato on 06-03-2023 Nitrite Ql (U) Negative Negative [facility] No Panel InformationOrdered By: Mustapha Serrato on 06-03-2023 Estimated Creatinine Clearance Calc 142.22 ml/min [facility] Estimated GFR (MDRD) Amer 154 mL/min >60 [facility] Comment on above: GFR Calc Estimated GFR (MDRD) Non-Af Amer 127 mL/min >60 [facility] Comment on above: Non- GFR Calc Protein Test strip Ql (U)Ord ered By: Mustapha Serrato on 06-03-2023 Protein Ql (U) 15 mg/dl Negative [facility] Serum or plasma calcium chet urement (mass/volume)Ordered By: Mustapha Serrato on 06-03-2023 Calcium [Mass/Vol] 8.6 mg/dL 8.5-10.1 [facility] Serum or plasma creatinine m easurement (mass/volume)Ordered By: Mustapha Serrato on 06-03-2023 Creatinine [Mass/Vol] 0.61 mg/dL 0.55-1.02 [facility] Comment on above: The validity of the calculated GFR & GFRAA in patients over 70 years has not been determined. Clinical correlation is essential. Serum or plasma urea nitroge n measurement (mass/volume)Ordered By: Mustapha Serrato on 06-03-2023 Urea nitrogen [Mass/Vol] 5 mg/dL 7-18 [facility] Squamous epithelial cells de tection in urine sediment by light microscopyOrdered By: Mustapha Serrato on 06-03-2023 Epithelial cells.squamous LM Ql (Urine sed) 25-50 SEEN /hpf 5-10 [facility] Thin prep Papanicolaou smear with manual screeningOrdered By: Mustapha Serrato on 06-03-2023 Thin prep Papanicolaou smear with manual screening 4 5-15 [facility] Urine blood detectionOrdered By: Mustapha Serrato on 06-03-2023 RBC Ql (U) 10 /ul Negative [facility] RBC Ql (U) 0 SEEN /hpf 0-5 [facility] Urine clarityOrdered By: Gustabo Serrato on 06-03-2023 Clarity (U) Cloudy Clear [facility] Urine color determinationOrd ered By: Mustapha Serrato on 06-03-2023 Color (U) Yellow Yellow [facility] Urine glucose detectionOrder ed By: Mustapha Serrato on 06-03-2023 Glucose Ql (U) Normal mg/dl Normal [facility] Urine leukocyte esterase det ection by dipstickOrdered By: Mustapha Serrato on 06-03-2023 Leukocyte esterase Test strip Ql (U) 500 /ul Negative [facility] Urine pHOrdered By: Mustapha wilson on 06-03-2023 pH (U) 7.0 [pH] 5.0 - 8.0 [facility] Urine sediment bacteria coun t by microscopy (number/high power field)Ordered By: Mustapha Serrato on 06-03-2023 Bacteria LM.HPF (Urine sed) [#/Area] 0 /[HPF] None Seen [facility] Urine specific gravity measu rementOrdered By: Mustapha Serrato on 06-03-2023 Specific gravity (U) [Rel density] 1.010 1.002-1.030 [facility] Urobilinogen Auto test strip Ql (U)Ordered By: Mustapha Serrato on 06-03-2023 Urobilinogen Ql (U) Normal mg/dl Normal [facility] Culture, urineOrdered By: Dr Quincy Estrada on 04-05-2023 Bacteria identified Cx Nom (U) Staphylococcus aureus [facility] Basophil percentageOrdered B y: ED PROVIDER on 04-03-2023 Basophil percentage 25-50 SEEN /hpf 0-5 [facility] Bilirubin Test strip Ql (U)O rdered By: ED PROVIDER on 04-03-2023 Bilirubin Ql (U) Negative Negative [facility] Culture, urineOrdered By: Er bola Estrada on 04-03-2023 Bacteria identified Cx Nom (U) Staphylococcus aureus [facility] Ketones Test strip Ql (U)Ord ered By: ED PROVIDER on 04-03-2023 Ketones Ql (U) 5 mg/dl Negative [facility] Mucus LM Ql (Urine sed)Order ed By: ED PROVIDER on 04-03-2023 Mucus Ql (Urine sed) 1+ /hpf [facility] Nitrite Test strip Ql (U)Ord ered By: ED PROVIDER on 04-03-2023 Nitrite Ql (U) Negative Negative [facility] Protein Test strip Ql (U)Ord ered By: ED PROVIDER on 04-03-2023 Protein Ql (U) 30 mg/dl Negative [facility] Squamous epithelial cells de tection in urine sediment by light microscopyOrdered By: ED PROVIDER on 04-03-2023 Epithelial cells.squamous LM Ql (Urine sed) 0-5 SEEN /hpf 5-10 [facility] Urine blood detectionOrdered By: ED PROVIDER on 04-03-2023 RBC Ql (U) 25 /ul Negative [facility] RBC Ql (U) 0-5 SEEN /hpf 0-5 [facility] Urine clarityOrdered By: ED PROVIDER on 04-03-2023 Clarity (U) Sl. Cloudy Clear [facility] Urine color determinationOrd ered By: ED PROVIDER on 04-03-2023 Color (U) Yellow Yellow [facility] Urine glucose detectionOrder ed By: ED PROVIDER on 04-03-2023 Glucose Ql (U) Normal mg/dl Normal [facility] Urine leukocyte esterase det ection by dipstickOrdered By: ED PROVIDER on 04-03-2023 Leukocyte esterase Test strip Ql (U) 500 /ul Negative [facility] Urine pHOrdered By: ED PROVI SELENE on 04-03-2023 pH (U) 6.0 [pH] 5.0 - 8.0 [facility] Urine sediment bacteria coun t by microscopy (number/high power field)Ordered By: ED PROVIDER on 04-03-2023 Bacteria LM.HPF (Urine sed) [#/Area] 1 /[HPF] None Seen [facility] Urine specific gravity measu rementOrdered By: ED PROVIDER on 04-03-2023 Specific gravity (U) [Rel density] 1.025 1.002-1.030 [facility] Urobilinogen Auto test strip Ql (U)Ordered By: ED PROVIDER on 04-03-2023 Urobilinogen Ql (U) Normal mg/dl Normal [facility] POC RESEARCH STUDY ASSISTANT ULTRASOUNDon 04-01-20 [facility] Culture, urineOrdered By: Olga Pimentel on 03-13-2023 Bacteria identified Cx Nom (U) Positive [facility] Absolute lymphocyte countOrd ered By: Judit Pimentel on 03-11-2023 Lymphocytes Auto (Unsp spec) [#/Vol] 1.61 10*3/uL 0.83-4.51 [facility] Basophil percentageOrdered B y: Judit Pimentel on 03-11-2023 Basophils/100 WBC (Bld) 0.6 % 0-1 [facility] Eosinophils/100 WBC (Bld) 1.5 % 0-5 [facility] Neutrophils (Bld) [#/Vol] 6.4 10*3/uL 2.0-7.7 [facility] Neutrophils/100 WBC (Bld) 73.5 % 47-70 [facility] WBC (Bld) [#/Vol] 8.7 10*3/uL 4.4-11.0 [facility] Blood erythrocytes count (nu mber/volume)Ordered By: Judit Pimentel on 03-11-2023 RBC (Bld) [#/Vol] 4.46 10*6/uL 4.2-5.4 [facility] Blood hemoglobin measurement (mass/volume)Ordered By: Judit Pimentel on 03-11-2023 Hemoglobin (Bld) [Mass/Vol] 12.9 g/dL 12.0-15.0 [facility] Blood lymphocytes/100 leukoc ytesOrdered By: Judit Pimentel on 03-11-2023 Lymphocytes/100 WBC (Bld) 18.5 % 19-41 [facility] Blood monocytes/100 leukocyt esOrdered By: Judit Pimentel on 03-11-2023 Monocytes/100 WBC (Bld) 5.6 % 0-10 [facility] Blood platelet mean volumeOr dered By: Judit Pimentel on 03-11-2023 Platelet mean volume (Bld) [Entitic vol] 10.5 fL 6.2-12.0 [facility] Culture, urineOrdered By: Olga Pimentel on 03-11-2023 Bacteria identified Cx Nom (U) Positive [facility] Determination of erythrocyte mean corpuscular volume (MCV)Ordered By: Judit Pimentel on 03-11-2023 MCV (RBC) [Entitic vol] 88.6 fL 81-99 [facility] HIV 1 and HIV-2 antibody ass ay with HIV-1 p24 antigen detectionOrdered By: Judit Pimentel on 03-11-2023 HIV 1+2 Ab+HIV1 p24 Ag IA Ql Non-Reactive Nonreactive [facility] Hematocrit Auto (Bld) [Volum e fraction]Ordered By: Judit Pimentel on 03-11-2023 Hematocrit (Bld) [Volume fraction] 39.5 % 37-47 [facility] Laboratory - Hematology and Cell countsOrdered By: Judit Pimentel on 03-11-2023 Erythrocyte distribution width (RBC) [Entitic vol] 45.1 fL 35.1-43.9 [facility] Erythrocyte distribution width (RBC) [Ratio] 14.0 % 11.6-14.6 [facility] Immature granulocytes/100 WBC (Bld) 0.300 % 0.0-0.9 [facility] Comment on above: IG% - Immature Granu locytes (promyelocytes, myelocytes and metamyelocytes) > 1% indicates that a LEFT SHIFT is Present. MCH (RBC) [Entitic mass] 28.9 pg 27.0-32.0 [facility] Nucleated RBC/100 WBC (Bld) [Ratio] 0 % 0-5 [facility] MCHC Auto (RBC) [Mass/Vol]Or dered By: Judit Pimentel on 03-11-2023 MCHC (RBC) [Mass/Vol] 32.7 g/dL 32-36 [facility] No Panel InformationOrdered By: Judit Pimentel on 03-11-2023 Hepatitis B Surface Antigen Non-Reactive Nonreactive [facility] Hepatitis C Antibody Non-Reactive Nonreactive [facility] Comment on above: Non Reactive: < 0.8 Equivocal: >/= 0.8 to < 1.0 Reactive: >/= 1.0The CDC recommends that a reactive/equivocal HCV antibody result be followed up by the HCV Nucleic Acid Amplificationtest (056869) Rubella IgG Antibody Reactive Nonreactive [facility] Comment on above: Antibody Results Int erpretation of Immune Status Non Reactive Presumed Non-Immune Equivocal Equivocal Reactive Presumed Immune Platelets bldOrdered By: Marzena Pimentel on 03-11-2023 Platelets (Bld) [#/Vol] 433 10*3/uL 150-450 [facility] Serum Treponema species anti body detectionOrdered By: Judit Pimentel on 03-11-2023 Treponema sp Ab Ql (S) Non-Reactive [facility] Serum Varicella zoster virus IgG antibody assay by immunoassay (units/volume)Ordered By: Judit Pimentel on 03-11-2023 VZV IgG IA Qn (S) 692 index Immune >165 [facility] Comment on above: Negative <135 Equivo dhruv 135 - 165 Positive >165A positive result generally indicates exposure to thepathogen or administration of specific immunoglobulins,but it is not indication of active infection or stageof disease.Performed at: [address] [id number] Director: Reilly Jama PhD, Phone: [phone] Serum or plasma choriogonado tropin detectionOrdered By: Dr. Corona on 03-06-2023 HCG ( test) [place]l [address] mIU/mL <4 [facility] Comment on above: hCG levels with Gest ational AgeGestational Age hCG mIU/mL (IU/L)0.2 - 1 week 5 - 501-2 weeks 50 - 5002-3 weeks 100 - 17045-3 weeks 500 - 415016-7 weeks 1000 - 554145-7 weeks 98716 - 100,0006-8 weeks 37372 - 200,0002-3 months 60913 - 100,000 Absolute lymphocyte countOrd ered By: Clari Burnham on 03-03-2023 Lymphocytes Auto (Unsp spec) [#/Vol] 1.81 10*3/uL 0.83-4.51 [facility] Basophil percentageOrdered B y: Clari Burnham on 03-03-2023 Basophils/100 WBC (Bld) 0.6 % 0-1 [facility] Eosinophils/100 WBC (Bld) 1.9 % 0-5 [facility] Neutrophils (Bld) [#/Vol] 5.6 10*3/uL 2.0-7.7 [facility] Neutrophils/100 WBC (Bld) 67.8 % 47-70 [facility] WBC (Bld) [#/Vol] 8.2 10*3/uL 4.4-11.0 [facility] Blood erythrocytes count (nu mber/volume)Ordered By: Clari Burnham on 03-03-2023 RBC (Bld) [#/Vol] 4.29 10*6/uL 4.2-5.4 [facility] Blood hemoglobin measurement (mass/volume)Ordered By: Clari Burnham on 03-03-2023 Hemoglobin (Bld) [Mass/Vol] 12.5 g/dL 12.0-15.0 [facility] Blood lymphocytes/100 leukoc ytesOrdered By: Clari Burnham on 03-03-2023 Lymphocytes/100 WBC (Bld) 22.0 % 19-41 [facility] Blood monocytes/100 leukocyt esOrdered By: Clari Burnham on 03-03-2023 Monocytes/100 WBC (Bld) 7.5 % 0-10 [facility] Blood platelet mean volumeOr dered By: Clari Burnham on 03-03-2023 Platelet mean volume (Bld) [Entitic vol] 10.2 fL 6.2-12.0 [facility] Determination of erythrocyte mean corpuscular volume (MCV)Ordered By: Clari Burnham on 03-03-2023 MCV (RBC) [Entitic vol] 88.3 fL 81-99 [facility] Hematocrit Auto (Bld) [Volum e fraction]Ordered By: Clari Burnham on 03-03-2023 Hematocrit (Bld) [Volume fraction] 37.9 % 37-47 [facility] Laboratory - Hematology and Cell countsOrdered By: Clari Burnham on 03-03-2023 Erythrocyte distribution width (RBC) [Entitic vol] 45.1 fL 35.1-43.9 [facility] Erythrocyte distribution width (RBC) [Ratio] 14.0 % 11.6-14.6 [facility] Immature granulocytes/100 WBC (Bld) 0.200 % 0.0-0.9 [facility] Comment on above: IG% - Immature Granu locytes (promyelocytes, myelocytes and metamyelocytes) > 1% indicates that a LEFT SHIFT is Present. MCH (RBC) [Entitic mass] 29.1 pg 27.0-32.0 [facility] Nucleated RBC/100 WBC (Bld) [Ratio] 0 % 0-5 [facility] MCHC Auto (RBC) [Mass/Vol]Or dered By: Clari Burnham on 03-03-2023 MCHC (RBC) [Mass/Vol] 33.0 g/dL 32-36 [facility] Platelets bldOrdered By: Edu Burnham on 03-03-2023 Platelets (Bld) [#/Vol] 402 10*3/uL 150-450 [facility] Serum or plasma choriogonado tropin detectionOrdered By: Clari Burnham on 03-03-2023 HCG ( test) Ql 5957 mIU/mL <4 [facility] Comment on above: hCG levels with Gest ational AgeGestational Age hCG mIU/mL (IU/L)0.2 - 1 week 5 - 501-2 weeks 50 - 5002-3 weeks 100 - 62812-9 weeks 500 - 131221-5 weeks 1000 - 647247-1 weeks 99315 - 100,0006-8 weeks 96859 - 200,0002-3 months 39060 - 100,000 Laboratory - Chemistry and C hemistry - challengeOrdered By: Dr. Watson on 11-12-2022 HCG ( test) Ql (U) Negative [facility] Comment on above: Very dilute urine sp ecimens, as indicated by a low specificgravity, may not contain it sales representative levels of hCG. If is still suspected, a first morning urinespecimen should be collected 48 hours later and tested. Absolute lymphocyte countOrd ered By: ED PROVIDER on 11-07-2022 Lymphocytes Auto (Unsp spec) [#/Vol] 2.61 10*3/uL 0.83-4.51 [facility] Basophil percentageOrdered B y: ED PROVIDER on 11-07-2022 Basophil percentage 25-50 SEEN /hpf 0-5 [facility] Basophils/100 WBC (Bld) 0.5 % 0-1 [facility] Chloride [Moles/Vol] 112 mmol/L 98-107 [facility] Eosinophils/100 WBC (Bld) 2.4 % 0-5 [facility] Glucose [Mass/Vol] 114 mg/dL 74-106 [facility] Comment on above: Fasting Glucose resu lt from 100 to 125 mg/dL suggests IMPAIRED HOMEOSTASIS per A.D.A. criteria. Neutrophils (Bld) [#/Vol] 4.9 10*3/uL 2.0-7.7 [facility] Neutrophils/100 WBC (Bld) 58.3 % 47-70 [facility] Potassium [Moles/Vol] 3.8 mmol/L 3.5-5.1 [facility] Sodium [Moles/Vol] 141 mmol/L 136-145 [facility] WBC (Bld) [#/Vol] 8.4 10*3/uL 4.4-11.0 [facility] Basophil percentageOrdered B y: Dr. Corona on 11-07-2022 Bilirubin [Mass/Vol] 0.40 mg/dL 0.20-1.00 [facility] Comment on above: For patients on eltr ombopag therapy, use of Dimension [place] TBIL is not recommended. Protein [Mass/Vol] 7.3 g/dL 6.4-8.2 [facility] Beta hCG serum qualOrdered B y: ED PROVIDER on 11-07-2022 Beta HCG ( test) Ql Negative [facility] Bilirubin Test strip Ql (U)O rdered By: ED PROVIDER on 11-07-2022 Bilirubin Ql (U) Negative Negative [facility] Blood erythrocytes count (nu mber/volume)Ordered By: ED PROVIDER on 11-07-2022 RBC (Bld) [#/Vol] 4.73 10*6/uL 4.2-5.4 [facility] Blood hemoglobin measurement (mass/volume)Ordered By: ED PROVIDER on 11-07-2022 Hemoglobin (Bld) [Mass/Vol] 14.0 g/dL 12.0-15.0 [facility] Blood lymphocytes/100 leukoc ytesOrdered By: ED PROVIDER on 11-07-2022 Lymphocytes/100 WBC (Bld) 31.1 % 19-41 [facility] Blood monocytes/100 leukocyt esOrdered By: ED PROVIDER on 11-07-2022 Monocytes/100 WBC (Bld) 7.3 % 0-10 [facility] Blood platelet mean volumeOr dered By: ED PROVIDER on 11-07-2022 Platelet mean volume (Bld) [Entitic vol] 10.8 fL 6.2-12.0 [facility] Determination of erythrocyte mean corpuscular volume (MCV)Ordered By: ED PROVIDER on 11-07-2022 MCV (RBC) [Entitic vol] 86.9 fL 81-99 [facility] Direct bilirubinOrdered By: Dr. Corona on 11-07-2022 Bilirubin.direct [Mass/Vol] 0.10 mg/dL 0.00-0.30 [facility] Hematocrit Auto (Bld) [Volum e fraction]Ordered By: ED PROVIDER on 11-07-2022 Hematocrit (Bld) [Volume fraction] 41.1 % 37-47 [facility] Ketones Test strip Ql (U)Ord ered By: ED PROVIDER on 12-07-2022 Ketones Ql (U) Negative Negative [facility] Laboratory - Chemistry and C hemistry - challengeOrdered By: Dr. Corona on 11-07-2022 ALP [Catalytic activity/Vol] 85 U/L 45-117 [facility] ALT [Catalytic activity/Vol] 117 U/L 13-56 [facility] Globulin (S) [Mass/Vol] 3.4 g/dL 2.2-4.2 [facility] Lipase [Catalytic activity/Vol] 215 U/L 73-393 [facility] Laboratory - Chemistry and C hemistry - challengeOrdered By: ED PROVIDER on 11-07-2022 CO2 [Moles/Vol] 25.0 mmol/L 21.0-32.0 [facility] Urea nitrogen/Creatinine [Mass ratio] 10.6 mg/mg 10-20 [facility] Laboratory - Hematology and Cell countsOrdered By: ED PROVIDER on 11-07-2022 Erythrocyte distribution width (RBC) [Entitic vol] 45.5 fL 35.1-43.9 [facility] Erythrocyte distribution width (RBC) [Ratio] 14.1 % 11.6-14.6 [facility] Immature granulocytes/100 WBC (Bld) 0.400 % 0.0-0.9 [facility] Comment on above: IG% - Immature Granu locytes (promyelocytes, myelocytes and metamyelocytes) > 1% indicates that a LEFT SHIFT is Present. MCH (RBC) [Entitic mass] 29.6 pg 27.0-32.0 [facility] Nucleated RBC/100 WBC (Bld) [Ratio] 0 % 0-5 [facility] MCHC Auto (RBC) [Mass/Vol]Or dered By: ED PROVIDER on 11-07-2022 MCHC (RBC) [Mass/Vol] 34.1 g/dL 32-36 [facility] Mucus LM Ql (Urine sed)Order ed By: ED PROVIDER on 11-07-2022 Mucus Ql (Urine sed) 0 SEEN /hpf [facility] Nitrite Test strip Ql (U)Ord ered By: ED PROVIDER on 11-07-2022 Nitrite Ql (U) Negative Negative [facility] No Panel InformationOrdered By: ED PROVIDER on 11-07-2022 Estimated Creatinine Clearance Calc 91.32 ml/min [facility] Estimated GFR (MDRD) Amer 93 mL/min >60 [facility] Comment on above: GFR Calc Estimated GFR (MDRD) Non-Af Amer 77 mL/min >60 [facility] Comment on above: Non- GFR Calc Platelets bldOrdered By: ED PROVIDER on 11-07-2022 Platelets (Bld) [#/Vol] 425 10*3/uL 150-450 [facility] Protein Test strip Ql (U)Ord ered By: ED PROVIDER on 11-07-2022 Protein Ql (U) Negative Negative [facility] Serum or plasma albumin chet urement (mass/volume)Ordered By: Dr. Corona on 11-07-2022 Albumin [Mass/Vol] 3.9 g/dL 3.2-5.0 [facility] Serum or plasma calcium chet urement (mass/volume)Ordered By: ED PROVIDER on 11-07-2022 Calcium [Mass/Vol] 9.2 mg/dL 8.5-10.1 [facility] Serum or plasma creatinine m easurement (mass/volume)Ordered By: ED PROVIDER on 11-07-2022 Creatinine [Mass/Vol] 0.95 mg/dL 0.55-1.02 [facility] Comment on above: The validity of the calculated GFR & GFRAA in patients over 70 years has not been determined. Clinical correlation is essential. Serum or plasma urea nitroge n measurement (mass/volume)Ordered By: ED PROVIDER on 11-07-2022 Urea nitrogen [Mass/Vol] 10 mg/dL 7-18 [facility] Squamous epithelial cells de tection in urine sediment by light microscopyOrdered By: ED PROVIDER on 11-07-2022 Epithelial cells.squamous LM Ql (Urine sed) 5-10 SEEN /hpf 5-10 [facility] Stool gastrointestinal hemog lobin detection by immunologic methodOrdered By: Dr. Corona on 11-07-2022 Lower GI hemoglobin IA Ql (Stl) [facility] Thin prep Papanicolaou smear with manual screeningOrdered By: Dr. Corona on 11-07-2022 Thin prep Papanicolaou smear with manual screening 42 U/L 15-37 [facility] Thin prep Papanicolaou smear with manual screeningOrdered By: ED PROVIDER on 11-07-2022 Thin prep Papanicolaou smear with manual screening 4 5-15 [facility] Urine blood detectionOrdered By: ED PROVIDER on 11-07-2022 RBC Ql (U) 10 /ul Negative [facility] RBC Ql (U) 0-5 SEEN /hpf 0-5 [facility] Urine clarityOrdered By: ED PROVIDER on 11-07-2022 Clarity (U) Cloudy Clear [facility] Urine color determinationOrd ered By: ED PROVIDER on 11-07-2022 Color (U) Yellow Yellow [facility] Urine glucose detectionOrder ed By: ED PROVIDER on 11-07-2022 Glucose Ql (U) Normal mg/dl Normal [facility] Urine leukocyte esterase det ection by dipstickOrdered By: ED PROVIDER on 11-07-2022 Leukocyte esterase Test strip Ql (U) 500 /ul Negative [facility] Urine pHOrdered By: ED PROVI SELENE on 11-07-2022 pH (U) 6.0 [pH] 5.0 - 8.0 [facility] Urine sediment bacteria coun t by microscopy (number/high power field)Ordered By: ED PROVIDER on 11-07-2022 Bacteria LM.HPF (Urine sed) [#/Area] 1 /[HPF] None Seen [facility] Urine specific gravity measu rementOrdered By: ED PROVIDER on 11-07-2022 Specific gravity (U) [Rel density] 1.020 1.002-1.030 [facility] Urobilinogen Auto test strip Ql (U)Ordered By: ED PROVIDER on 11-07-2022 Urobilinogen Ql (U) Normal mg/dl Normal [facility] Absolute lymphocyte counton 10-21-2022 Lymphocytes Auto (Unsp spec) [#/Vol] 2.42 10*3/uL 0.83-4.51 [facility] Work Phone: Basophil percentageon 2021 Basophils/100 WBC (Bld) 0.6 % 0-1 [facility] Work Phone: Bilirubin [Mass/Vol] 0.50 mg/dL 0.20-1.00 [facility] Work Phone: Comment on above: For patients on eltr ombopag therapy, use of Dimension [place] TBIL is not recommended. Chloride [Moles/Vol] 109 mmol/L 98-107 [facility] Work Phone: Eosinophils/100 WBC (Bld) 3.1 % 0-5 [facility] Work Phone: Glucose [Mass/Vol] 95 mg/dL 74-106 [facility] Work Phone: Neutrophils (Bld) [#/Vol] 4.6 10*3/uL 2.0-7.7 [facility] Work Phone: Neutrophils/100 WBC (Bld) 56.6 % 47-70 [facility] Work Phone: Potassium [Moles/Vol] 3.9 mmol/L 3.5-5.1 [facility] Work Phone: Protein [Mass/Vol] 7.5 g/dL 6.4-8.2 [facility] Work Phone: Sodium [Moles/Vol] 140 mmol/L 136-145 [facility] Work Phone: WBC (Bld) [#/Vol] 8.2 10*3/uL 4.4-11.0 [facility] Work Phone: Blood erythrocytes count (nu mber/volume)on 10-21-2022 RBC (Bld) [#/Vol] 4.38 10*6/uL 4.2-5.4 [facility] Work Phone: Blood hemoglobin measurement (mass/volume)on 10-21-2022 Hemoglobin (Bld) [Mass/Vol] 12.7 g/dL 12.0-15.0 [facility] Work Phone: Blood lymphocytes/100 leukoc yteson 10-21-2022 Lymphocytes/100 WBC (Bld) 29.6 % 19-41 [facility] Work Phone: Blood monocytes/100 leukocyt eson 10-21-2022 Monocytes/100 WBC (Bld) 10.0 % 0-10 [facility] Work Phone: Blood platelet mean volumeon 10-21-2022 Platelet mean volume (Bld) [Entitic vol] 10.7 fL 6.2-12.0 [facility] Work Phone: Determination of erythrocyte mean corpuscular volume (MCV)on 10-21-2022 MCV (RBC) [Entitic vol] 86.1 fL 81-99 [facility] Work Phone: Hematocrit Auto (Bld) [Volum e fraction]on 10-21-2022 Hematocrit (Bld) [Volume fraction] 37.7 % 37-47 [facility] Work Phone: Laboratory - Chemistry and C hemistry - challengeon 10-21-2022 ALP [Catalytic activity/Vol] 83 U/L 45-117 [facility] Work Phone: ALT [Catalytic activity/Vol] 104 U/L 13-56 [facility] Work Phone: CO2 [Moles/Vol] 25.0 mmol/L 21.0-32.0 [facility] Work Phone: Globulin (S) [Mass/Vol] 3.6 g/dL 2.2-4.2 [facility] Work Phone: Lipase [Catalytic activity/Vol] 232 U/L 73-393 [facility] Work Phone: Urea nitrogen/Creatinine [Mass ratio] 11.0 mg/mg 10- [facility] Work Phone: Laboratory - Hematology and Cell countson 10-21-2022 Erythrocyte distribution width (RBC) [Entitic vol] 47.4 fL 35.1-43.9 [facility] Work Phone: Erythrocyte distribution width (RBC) [Ratio] 14.8 % 11.6-14.6 [facility] Work Phone: Immature granulocytes/100 WBC (Bld) 0.100 % 0.0-0.9 [facility] Work Phone: Comment on above: IG% - Immature Granu locytes (promyelocytes, myelocytes and metamyelocytes) > 1% indicates that a LEFT SHIFT is Present. MCH (RBC) [Entitic mass] 29.0 pg 27.0-32.0 [facility] Work Phone: Nucleated RBC/100 WBC (Bld) [Ratio] 0 % 0-5 [facility] Work Phone: MCHC Auto (RBC) [Mass/Vol]on 10-21-2022 MCHC (RBC) [Mass/Vol] 33.7 g/dL 32-36 [facility] Work Phone: No Panel Informationon 10-21 Estimated Creatinine Clearance Calc 79.59 ml/min [facility] Work Phone: Estimated GFR (MDRD) Amer 79 mL/min >60 [facility] Work Phone: Comment on above: GFR Calc Estimated GFR (MDRD) Non-Af Amer 65 mL/min >60 [facility] Work Phone: Comment on above: Non- GFR Calc Platelets bldon 10-21-2022 Platelets (Bld) [#/Vol] 360 10*3/uL 150-450 [facility] Work Phone: Serum or plasma albumin chet urement (mass/volume)on 10-21-2022 Albumin [Mass/Vol] 3.9 g/dL 3.2-5.0 [facility] Work Phone: Serum or plasma albumin/glob ulin mass ratioon 10-21-2022 Albumin/Globulin [Mass ratio] 1.1 {ratio} 0.9-2.4 [facility] Work Phone: Serum or plasma calcium chet urement (mass/volume)on 10-21-2022 Calcium [Mass/Vol] 9.4 mg/dL 8.5-10.1 [facility] Work Phone: Serum or plasma creatinine m easurement (mass/volume)on 10-21-2022 Creatinine [Mass/Vol] 1.09 mg/dL 0.55-1.02 [facility] Work Phone: Comment on above: The validity of the calculated GFR & GFRAA in patients over 70 years has not been determined. Clinical correlation is essential. Serum or plasma urea nitroge n measurement (mass/volume)on 10-21-2022 Urea nitrogen [Mass/Vol] 12 mg/dL 7-18 [facility] Work Phone: Thin prep Papanicolaou smear with manual screeningon 10-21-2022 Thin prep Papanicolaou smear with manual screening 35 U/L 15 [facility] Work Phone: Thin prep Papanicolaou smear with manual screening 6 -15 [facility] Work Phone: Basophil percentageon 2021 Basophil percentage 0-5 SEEN /hpf 0-5 [facility] Work Phone: Bilirubin Test strip Ql (U)o n 2022 Bilirubin Ql (U) Negative Negative [facility] Work Phone: Ketones Test strip Ql (U)on 2022 Ketones Ql (U) 5 mg/dl Negative [facility] Work Phone: Mucus LM Ql (Urine sed)on Mucus Ql (Urine sed) 0 SEEN /hpf [facility] Work Phone: Nitrite Test strip Ql (U)on 2022 Nitrite Ql (U) Negative Negative [facility] Work Phone: Protein Test strip Ql (U)on 2022 Protein Ql (U) Negative Negative [facility] Work Phone: Squamous epithelial cells de tection in urine sediment by light microscopyon 2022 Epithelial cells.squamous LM Ql (Urine sed) 0-5 SEEN /hpf 5-10 [facility] Work Phone: Urine blood detectionon 10-02 RBC Ql (U) Negative Negative [facility] Work Phone: RBC Ql (U) 0 SEEN /hpf 0-5 [facility] Work Phone: Urine clarityon 2022 Clarity (U) Sl. Cloudy Clear [facility] Work Phone: Urine color determinationon 2022 Color (U) Yellow Yellow [facility] Work Phone: Urine glucose detectionon Glucose Ql (U) Normal mg/dl Normal [facility] Work Phone: Urine leukocyte esterase det ection by dipstickon 2022 Leukocyte esterase Test strip Ql (U) 500 /ul Negative [facility] Work Phone: Urine pHon 2022 pH (U) 6.5 [pH] 5.0 - 8.0 [facility] Work Phone: Urine sediment bacteria coun t by microscopy (number/high power field)on 2022 Bacteria LM.HPF (Urine sed) [#/Area] 0 /[HPF] None Seen [facility] Work Phone: Urine specific gravity measu rementon 2022 Specific gravity (U) [Rel density] 1.015 1.002-1.030 [facility] Work Phone: Urobilinogen Auto test strip Ql (U)on 2022 Urobilinogen Ql (U) Normal mg/dl Normal [facility] Work Phone: Absolute lymphocyte counton 10-04-2022 Lymphocytes Auto (Unsp spec) [#/Vol] 1.96 10*3/uL 0.83-4.51 [facility] Work Phone: Basophil percentageon 2021 Basophils/100 WBC (Bld) 0.7 % 0-1 [facility] Work Phone: Bilirubin [Mass/Vol] 0.50 mg/dL 0.20-1.00 [facility] Work Phone: Comment on above: For patients on eltr ombopag therapy, use of Dim[place] TBIL is not recommended. Chloride [Moles/Vol] 108 mmol/L 98-107 [facility] Work Phone: Eosinophils/100 WBC (Bld) 1.2 % 0-5 [facility] Work Phone: Glucose [Mass/Vol] 93 mg/dL 74-106 [facility] Work Phone: Neutrophils (Bld) [#/Vol] 5.4 10*3/uL 2.0-7.7 [facility] Work Phone: Neutrophils/100 WBC (Bld) 67.4 % 47-70 [facility] Work Phone: Potassium [Moles/Vol] 4.2 mmol/L 3.5-5.1 [facility] Work Phone: Protein [Mass/Vol] 7.7 g/dL 6.4-8.2 [facility] Work Phone: Sodium [Moles/Vol] 138 mmol/L 136-145 [facility] Work Phone: WBC (Bld) [#/Vol] 8.1 10*3/uL 4.4-11.0 [facility] Work Phone: Blood erythrocytes count (nu mber/volume)on 10-04-2022 RBC (Bld) [#/Vol] 4.79 10*6/uL 4.2-5.4 [facility]: Blood hemoglobin measurement (mass/volume)on 10-04-2022 Hemoglobin (Bld) [Mass/Vol] 14.2 g/dL 12.0-15.0 [facility] Work Phone: Blood lymphocytes/100 leukoc yteson 10-04-2022 Lymphocytes/100 WBC (Bld) 24.3 % 19-41 [facility] Work Phone: Blood monocytes/100 leukocyt eson 10-04-2022 Monocytes/100 WBC (Bld) 6.2 % 0-10 [facility] Work Phone: Blood platelet mean volumeon 10-04-2022 Platelet mean volume (Bld) [Entitic vol] 10.0 fL 6.2-12.0 [facility] Work Phone: Determination of erythrocyte mean corpuscular volume (MCV)on 10-04-2022 MCV (RBC) [Entitic vol] 86.2 fL 81-99 [facility] Work Phone: Hematocrit Auto (Bld) [Volum e fraction]on 10-04-2022 Hematocrit (Bld) [Volume fraction] 41.3 % 37-47 [facility] Work Phone: Laboratory - Chemistry and C hemistry - challengeon 10-04-2022 ALP [Catalytic activity/Vol] 84 U/L 45-117 [facility] Work Phone: ALT [Catalytic activity/Vol] 106 U/L 13-56 [facility] Work Phone: CO2 [Moles/Vol] 24.0 mmol/L 21.0-32.0 [facility] Work Phone: Globulin (S) [Mass/Vol] 3.8 g/dL 2.2-4.2 [facility] Work Phone: Urea nitrogen/Creatinine [Mass ratio] 10.7 mg/mg 10-20 [facility] Work Phone: Laboratory - Hematology and Cell countson 10-04-2022 Erythrocyte distribution width (RBC) [Entitic vol] 47.8 fL 35.1-43.9 [facility] Work Phone: Erythrocyte distribution width (RBC) [Ratio] 15.1 % 11.6-14.6 [facility] Work Phone: Immature granulocytes/100 WBC (Bld) 0.200 % 0.0-0.9 [facility] Work Phone: Comment on above: IG% - Immature Granu locytes (promyelocytes, myelocytes and metamyelocytes) > 1% indicates that a LEFT SHIFT is Present. MCH (RBC) [Entitic mass] 29.6 pg 27.0-32.0 [facility] Work Phone: Nucleated RBC/100 WBC (Bld) [Ratio] 0 % 0-5 [facility] Work Phone: MCHC Auto (RBC) [Mass/Vol]on 10-04-2022 MCHC (RBC) [Mass/Vol] 34.4 g/dL 32-36 [facility] Work Phone: No Panel Informationon 10-04 Estimated GFR (MDRD) Amer 84 mL/min >60 [facility] Work Phone: Comment on above: GFR Calc Estimated GFR (MDRD) Non-Af Amer 69 mL/min >60 [facility] Work Phone: Comment on above: Non- GFR Calc Platelets bldon 10-04-2022 Platelets (Bld) [#/Vol] 405 10*3/uL 150-450 [facility] Work Phone: Serum or plasma albumin chet urement (mass/volume)on 10-04-2022 Albumin [Mass/Vol] 3.9 g/dL 3.2-5.0 [facility] Work Phone: Serum or plasma albumin/glob ulin mass ratioon 10-04-2022 Albumin/Globulin [Mass ratio] 1.0 {ratio} 0.9-2.4 [facility] Work Phone: Serum or plasma calcium chet urement (mass/volume)on 10-04-2022 Calcium [Mass/Vol] 9.2 mg/dL 8.5-10.1 [facility] Work Phone: Serum or plasma creatinine m easurement (mass/volume)on 10-04-2022 Creatinine [Mass/Vol] 1.03 mg/dL 0.55-1.02 [facility] Work Phone: Comment on above: The validity of the calculated GFR & GFRAA in patients over 70 years has not been determined. Clinical correlation is essential. Serum or plasma urea nitroge n measurement (mass/volume)on 10-04-2022 Urea nitrogen [Mass/Vol] 11 mg/dL 7-18 [facility] Work Phone: Thin prep Papanicolaou smear with manual screeningon 10-04-2022 Thin prep Papanicolaou smear with manual screening 29 U/L 15-37 [facility] Work Phone: [phone] Thin prep Papanicolaou smear with manual screening 6 5-15 [facility] Work Phone: Absolute lymphocyte counton 09-24-2022 Lymphocytes Auto (Unsp spec) [#/Vol] 0.92 10*3/uL 0.83-4.51 [facility] Work Phone: [phone] Basophil percentageon 2021 Basophils/100 WBC (Bld) 0.1 % 0-1 [facility] Work Phone: Bilirubin [Mass/Vol] 0.70 mg/dL 0.20-1.00 [facility] Work Phone: Comment on above: For patients on eltr ombopag therapy, use of Dimension [place] TBIL is not recommended. Chloride [Moles/Vol] 107 mmol/L 98-107 [facility] Work Phone: Eosinophils/100 WBC (Bld) 0.0 % 0-5 [facility] Work Phone: Glucose [Mass/Vol] 125 mg/dL 74-106 [facility] Work Phone: Comment on above: Fasting Glucose resu lt from 100 to 125 mg/dL suggests IMPAIRED HOMEOSTASIS per A.D.A. criteria. Neutrophils (Bld) [#/Vol] 13.7 10*3/uL 2.0-7.7 [facility] Work Phone: Neutrophils/100 WBC (Bld) 88.9 % 47-70 [facility] Work Phone: Potassium [Moles/Vol] 4.0 mmol/L 3.5-5.1 [facility] Work Phone: Protein [Mass/Vol] 7.1 g/dL 6.4-8.2 [facility] Work Phone: Sodium [Moles/Vol] 138 mmol/L 136-145 [facility] Work Phone: WBC (Bld) [#/Vol] 15.4 10*3/uL 4.4-11.0 [facility] Work Phone: [phone] Blood erythrocytes count (nu mber/volume)on 09-24-2022 RBC (Bld) [#/Vol] 4.67 10*6/uL 4.2-5.4 [facility] Work Phone: [phone] Blood hemoglobin measurement (mass/volume)on 09-24-2022 Hemoglobin (Bld) [Mass/Vol] 13.6 g/dL 12.0-15.0 [facility] Work Phone: [phone] Blood lymphocytes/100 leukoc yteson 09-24-2022 Lymphocytes/100 WBC (Bld) 6.0 % 19-41 [facility] Work Phone: Blood monocytes/100 leukocyt eson 09-24-2022 Monocytes/100 WBC (Bld) 4.5 % 0-10 [facility] Work Phone: Blood platelet mean volumeon 09-24-2022 Platelet mean volume (Bld) [Entitic vol] 10.4 fL 6.2-12.0 [facility] Work Phone: Determination of erythrocyte mean corpuscular volume (MCV)on 09-24-2022 MCV (RBC) [Entitic vol] 85.9 fL 81-99 [facility] Work Phone: Hematocrit Auto (Bld) [Volum e fraction]on 09-24-2022 Hematocrit (Bld) [Volume fraction] 40.1 % 37-47 [facility] Work Phone: Laboratory - Chemistry and C hemistry - challengeon 09-24-2022 ALP [Catalytic activity/Vol] 71 U/L 45-117 [facility] Work Phone: ALT [Catalytic activity/Vol] 138 U/L 13-56 [facility] Work Phone: CO2 [Moles/Vol] 24.0 mmol/L 21.0-32.0 [facility] Work Phone: Globulin (S) [Mass/Vol] 3.6 g/dL 2.2-4.2 [facility] Work Phone: Urea nitrogen/Creatinine [Mass ratio] 11.1 mg/mg 10-20 [facility] Work Phone: Laboratory - Hematology and Cell countson 09-24-2022 Erythrocyte distribution width (RBC) [Entitic vol] 50.4 fL 35.1-43.9 [facility] Work Phone: Erythrocyte distribution width (RBC) [Ratio] 15.9 % 11.6-14.6 [facility] Work Phone: Immature granulocytes/100 WBC (Bld) 0.500 % 0.0-0.9 [facility] Work Phone: Comment on above: IG% - Immature Granu locytes (promyelocytes, myelocytes and metamyelocytes) > 1% indicates that a LEFT SHIFT is Present. MCH (RBC) [Entitic mass] 29.1 pg 27.0-32.0 [facility] Work Phone: Nucleated RBC/100 WBC (Bld) [Ratio] 0 % 0-5 [facility] Work Phone: MCHC Auto (RBC) [Mass/Vol]on 09-24-2022 MCHC (RBC) [Mass/Vol] 33.9 g/dL 32-36 [facility] Work Phone: No Panel Informationon 09-24 Estimated Creatinine Clearance Calc 97.23 ml/min [facility] Work Phone: Estimated GFR (MDRD) Amer 98 mL/min >60 [facility] Work Phone: Comment on above: GFR Calc Estimated GFR (MDRD) Non-Af Amer 81 mL/min >60 [facility] Work Phone: Comment on above: Non- GFR Calc Platelets bldon 09-24-2022 Platelets (Bld) [#/Vol] 430 10*3/uL 150-450 [facility] Work Phone: Serum or plasma albumin chet urement (mass/volume)on 09-24-2022 Albumin [Mass/Vol] 3.5 g/dL 3.2-5.0 [facility] Work Phone: Serum or plasma albumin/glob ulin mass ratioon 09-24-2022 Albumin/Globulin [Mass ratio] 1.0 {ratio} 0.9-2.4 [facility] Work Phone: Serum or plasma calcium chet urement (mass/volume)on 09-24-2022 Calcium [Mass/Vol] 8.3 mg/dL 8.5-10.1 [facility] Work Phone: Serum or plasma creatinine m easurement (mass/volume)on 09-24-2022 Creatinine [Mass/Vol] 0.90 mg/dL 0.55-1.02 [facility] Work Phone: Comment on above: The validity of the calculated GFR & GFRAA in patients over 70 years has not been determined. Clinical correlation is essential. Serum or plasma urea nitroge n measurement (mass/volume)on 09-24-2022 Urea nitrogen [Mass/Vol] 10 mg/dL 7-18 [facility] Work Phone: Thin prep Papanicolaou smear with manual screeningon 09-24-2022 Thin prep Papanicolaou smear with manual screening 57 U/L 15-37 [facility] Work Phone: Thin prep Papanicolaou smear with manual screening 7 5-15 [facility] Work Phone: Absolute lymphocyte counton 09-23-2022 Lymphocytes Auto (Unsp spec) [#/Vol] 2.59 10*3/uL 0.83-4.51 [facility] Work Phone: Basophil percentageon 2021 Bilirubin [Mass/Vol] 0.40 mg/dL 0.20-1.00 [facility] Work Phone: Comment on above: For patients on eltr ombopag therapy, use of Dimension [place] TBIL is not recommended. Chloride [Moles/Vol] 104 mmol/L 98-107 [facility] Work Phone: Glucose [Mass/Vol] 110 mg/dL 74-106 [facility] Work Phone: Comment on above: Fasting Glucose resu lt from 100 to 125 mg/dL suggests IMPAIRED HOMEOSTASIS per A.D.A. criteria. Potassium [Moles/Vol] 3.8 mmol/L 3.5-5.1 [facility] Work Phone: [phone] Comment on above: Slight Hemolysis, Re sult may be falsely increased. Protein [Mass/Vol] 7.8 g/dL 6.4-8.2 [facility] Work Phone: Sodium [Moles/Vol] 140 mmol/L 136-145 [facility] Work Phone: Basophil percentage 0-5 SEEN /hpf 0-5 [facility] Work Phone: Basophils/100 WBC (Bld) 0.5 % 0-1 [facility] Work Phone: [phone] Eosinophils/100 WBC (Bld) 2.1 % 0-5 [facility] Work Phone: Neutrophils (Bld) [#/Vol] 7.3 10*3/uL 2.0-7.7 [facility] Work Phone: [phone] Neutrophils/100 WBC (Bld) 66.4 % 47-70 [facility] Work Phone: [phone] WBC (Bld) [#/Vol] 11.0 10*3/uL 4.4-11.0 [facility] Work Phone: Beta hCG serum qualon 2021 Beta HCG ( test) Ql Negative [facility] Work Phone: Bilirubin Test strip Ql (U)o n 09-23-2022 Bilirubin Ql (U) Negative Negative [facility] Work Phone: Blood erythrocytes count (nu mber/volume)on 09-23-2022 RBC (Bld) [#/Vol] 4.69 10*6/uL 4.2-5.4 [facility] Work Phone: Blood hemoglobin measurement (mass/volume)on 09-23-2022 Hemoglobin (Bld) [Mass/Vol] 13.3 g/dL 12.0-15.0 [facility] Work Phone: Blood lymphocytes/100 leukoc yteson 09-23-2022 Lymphocytes/100 WBC (Bld) 23.6 % 19-41 [facility] Work Phone: Blood monocytes/100 leukocyt eson 09-23-2022 Monocytes/100 WBC (Bld) 7.0 % 0-10 [facility] Work Phone: Blood platelet mean volumeon 09-23-2022 Platelet mean volume (Bld) [Entitic vol] 11.0 fL 6.2-12.0 [facility] Work Phone: Determination of erythrocyte mean corpuscular volume (MCV)on 09-23-2022 MCV (RBC) [Entitic vol] 86.8 fL 81-99 [facility] Work Phone: Direct bilirubinon 2 Bilirubin.direct [Mass/Vol] 0.14 mg/dL 0.00-0.30 [facility] Work Phone: Hematocrit Auto (Bld) [Volum e fraction]on 09-23-2022 Hematocrit (Bld) [Volume fraction] 40.7 % 37-47 [facility] Work Phone: Ketones Test strip Ql (U)on 09-23-2022 Ketones Ql (U) Negative Negative [facility] Work Phone: Laboratory - Chemistry and C hemistry - challengeon 09-23-2022 ALP [Catalytic activity/Vol] 88 U/L 45-117 [facility] Work Phone: ALT [Catalytic activity/Vol] 104 U/L 13-56 [facility] Work Phone: CO2 [Moles/Vol] 28.0 mmol/L 21.0-32.0 [facility] Work Phone: Globulin (S) [Mass/Vol] 3.8 g/dL 2.2-4.2 [facility] Work Phone: Lipase [Catalytic activity/Vol] 259 U/L 73-393 [facility] Work Phone: Urea nitrogen/Creatinine [Mass ratio] 11.8 mg/mg 10-20 [facility] Work Phone: HCG ( test) Ql (U) Negative [facility] Work Phone: Comment on above: Very dilute urine sp ecimens, as indicated by a low specificgravity, may not contain it sales representative levels of hCG. If is still suspected, a first morning urinespecimen should be collected 48 hours later and tested. Laboratory - Hematology and Cell countson 09-23-2022 Erythrocyte distribution width (RBC) [Entitic vol] 49.9 fL 35.1-43.9 [facility] Work Phone: Erythrocyte distribution width (RBC) [Ratio] 15.8 % 11.6-14.6 [facility] Work Phone: Immature granulocytes/100 WBC (Bld) 0.400 % 0.0-0.9 [facility] Work Phone: Comment on above: IG% - Immature Granu locytes (promyelocytes, myelocytes and metamyelocytes) > 1% indicates that a LEFT SHIFT is Present. MCH (RBC) [Entitic mass] 28.4 pg 27.0-32.0 [facility] Work Phone: Nucleated RBC/100 WBC (Bld) [Ratio] 0 % 0-5 [facility] Work Phone: MCHC Auto (RBC) [Mass/Vol]on 09-23-2022 MCHC (RBC) [Mass/Vol] 32.7 g/dL 32-36 [facility] Work Phone: Mucus LM Ql (Urine sed)on Mucus Ql (Urine sed) 0 SEEN /hpf [facility] Work Phone: Nitrite Test strip Ql (U)on 09-23-2022 Nitrite Ql (U) Negative Negative [facility] Work Phone: No Panel Informationon 09-23 Estimated Creatinine Clearance Calc 85.79 ml/min [facility] Work Phone: Estimated GFR (MDRD) Amer 85 mL/min >60 [facility] Work Phone: Comment on above: GFR Calc Estimated GFR (MDRD) Non-Af Amer 70 mL/min >60 [facility] Work Phone: Comment on above: Non- GFR Calc Troponin I High Sensitivity 4 pg/mL 3.0-54.0 [facility] Work Phone: Comment on above: Please Note: New Tg t Units and Gender Specific Reference Ranges. For more information see Policy Stat Procedure [place] High Sensitivity Troponin (TNIH) and attachments. Platelets bldon 09-23-2022 Platelets (Bld) [#/Vol] 437 10*3/uL 150-450 [facility] Work Phone: Protein Test strip Ql (U)on 09-23-2022 Protein Ql (U) Negative Negative [facility] Work Phone: Serum or plasma albumin chet urement (mass/volume)on 09-23-2022 Albumin [Mass/Vol] 4.0 g/dL 3.2-5.0 [facility] Work Phone: Serum or plasma calcium chet urement (mass/volume)on 09-23-2022 Calcium [Mass/Vol] 9.3 mg/dL 8.5-10.1 [facility] Work Phone: Serum or plasma creatinine m easurement (mass/volume)on 09-23-2022 Creatinine [Mass/Vol] 1.02 mg/dL 0.55-1.02 [facility] Work Phone: Comment on above: The validity of the calculated GFR & GFRAA in patients over 70 years has not been determined. Clinical correlation is essential. Serum or plasma urea nitroge n measurement (mass/volume)on 09-23-2022 Urea nitrogen [Mass/Vol] 12 mg/dL 7-18 [facility] Work Phone: Squamous epithelial cells de tection in urine sediment by light microscopyon 09-23-2022 Epithelial cells.squamous LM Ql (Urine sed) 0-5 SEEN /hpf 5-10 [facility] Work Phone: Thin prep Papanicolaou smear with manual screeningon 09-23-2022 Thin prep Papanicolaou smear with manual screening 40 U/L 15- [facility] Work Phone: Comment on above: Slight Hemolysis, Re sult may be falsely increased. Thin prep Papanicolaou smear with manual screening 8 5-15 [facility] Work Phone: Urine blood detectionon 09-02 RBC Ql (U) Negative Negative [facility] Work Phone: RBC Ql (U) 0 SEEN /hpf 0-5 [facility] Work Phone: Urine clarityon 09-23-2022 Clarity (U) Clear Clear [facility] Work Phone: Urine color determinationon 09-23-2022 Color (U) Yellow Yellow [facility] Work Phone: Urine glucose detectionon Glucose Ql (U) Normal mg/dl Normal [facility] Work Phone: Urine leukocyte esterase det ection by dipstickon 09-23-2022 Leukocyte esterase Test strip Ql (U) 25 /ul Negative [facility] Work Phone: Urine pHon 09-23-2022 pH (U) 7.0 [pH] 5.0 - 8.0 [facility] Work Phone: Urine sediment bacteria coun t by microscopy (number/high power field)on 10-23-2022 Bacteria LM.HPF (Urine sed) [#/Area] 1 /[HPF] None Seen [facility] Work Phone: Urine specific gravity measu rementon 09-23-2022 Specific gravity (U) [Rel density] 1.015 1.002-1.030 [facility] Work Phone: Urobilinogen Auto test strip Ql (U)on 09-23-2022 Urobilinogen Ql (U) Normal mg/dl Normal [facility] Work Phone: Absolute lymphocyte counton 03-12-2022 Lymphocytes Auto (Unsp spec) [#/Vol] 1.24 10*3/uL 0.83-4.51 [facility] Work Phone: Basophil percentageon 2021 Basophils/100 WBC (Bld) 0.2 % 0-1 [facility] Work Phone: Eosinophils/100 WBC (Bld) 0.6 % 0-5 [facility] Work Phone: Neutrophils (Bld) [#/Vol] 6.5 10*3/uL 2.0-7.7 [facility] Work Phone: Neutrophils/100 WBC (Bld) 79.4 % 47-70 [facility] Work Phone: WBC (Bld) [#/Vol] 8.2 10*3/uL 4.4-11.0 [facility] Work Phone: [phone] Blood erythrocytes count (nu mber/volume)on 03-12-2022 RBC (Bld) [#/Vol] 3.94 10*6/uL 4.2-5.4 [facility] Work Phone: Blood hemoglobin measurement (mass/volume)on 03-12-2022 Hemoglobin (Bld) [Mass/Vol] 12.3 g/dL 12.0-15.0 [facility] Work Phone: Blood lymphocytes/100 leukoc yteson 03-12-2022 Lymphocytes/100 WBC (Bld) 15.0 % 19-41 [facility] Work Phone: Blood monocytes/100 leukocyt eson 03-12-2022 Monocytes/100 WBC (Bld) 4.4 % 0-10 [facility] Work Phone: Blood platelet mean volumeon 03-12-2022 Platelet mean volume (Bld) [Entitic vol] 10.9 fL 6.2-12.0 [facility] Work Phone: Determination of erythrocyte mean corpuscular volume (MCV)on 03-12-2022 MCV (RBC) [Entitic vol] 88.3 fL 81-99 [facility] Work Phone: Hematocrit Auto (Bld) [Volum e fraction]on 03-12-2022 Hematocrit (Bld) [Volume fraction] 34.8 % 37-47 [facility] Work Phone: Laboratory - Hematology and Cell countson 03-12-2022 Erythrocyte distribution width (RBC) [Entitic vol] 43.7 fL 35.1-43.9 [facility] Work Phone: Erythrocyte distribution width (RBC) [Ratio] 13.4 % 11.6-14.6 [facility] Work Phone: Immature granulocytes/100 WBC (Bld) 0.400 % 0.0-0.9 [facility] Work Phone: Comment on above: IG% - Immature Granu locytes (promyelocytes, myelocytes and metamyelocytes) > 1% indicates that a LEFT SHIFT is Present. MCH (RBC) [Entitic mass] 31.2 pg 27.0-32.0 [facility] Work Phone: Nucleated RBC/100 WBC (Bld) [Ratio] 0 % 0-5 [facility] Work Phone: MCHC Auto (RBC) [Mass/Vol]on 03-12-2022 MCHC (RBC) [Mass/Vol] 35.3 g/dL 32-36 [facility] Work Phone: Platelets bldon 03-12-2022 Platelets (Bld) [#/Vol] 270 10*3/uL 150-450 [facility] Work Phone: No Panel Informationon 03-06 Vaginal Amniotic Fluid Detection Negative Negative [facility] Work Phone: Comment on above: Amniotic fluid not p resent indicates No Rupture of FetalMembranes at time of specimen collection. No Panel Informationon 02-23 Vaginal Amniotic Fluid Detection Negative Negative [facility] Work Phone: Comment on above: Amniotic fluid not p resent indicates No Rupture of FetalMembranes at time of specimen collection. No Panel Informationon 02-19 Group B Streptococcus Culture Streptococcus agalactiae (B) [facility] Work Phone: Basophil percentageon 2021 Bilirubin [Mass/Vol] 0.30 mg/dL 0.20-1.00 [facility] Work Phone: Comment on above: For patients on eltr ombopag therapy, use of Dimension [place] TBIL is not recommended. Chloride [Moles/Vol] 110 mmol/L 98-107 [facility] Work Phone: Glucose [Mass/Vol] 101 mg/dL 74-106 [facility] Work Phone: Comment on above: Fasting Glucose resu lt from 100 to 125 mg/dL suggests IMPAIRED HOMEOSTASIS per A.D.A. criteria. Potassium [Moles/Vol] 3.4 mmol/L 3.5-5.1 [facility] Work Phone: Protein [Mass/Vol] 6.4 g/dL 6.4-8.2 [facility] Work Phone: Sodium [Moles/Vol] 139 mmol/L 136-145 [facility] Work Phone: WBC (Bld) [#/Vol] 9.7 10*3/uL 4.4-11.0 [facility] Work Phone: Blood erythrocytes count (nu mber/volume)on 01-25-2022 RBC (Bld) [#/Vol] 3.77 10*6/uL 4[facility]2-5.[facility]: Blood hemoglobin measurement (mass/volume)on 01-25-2022 Hemoglobin (Bld) [Mass/Vol] 11.6 g/dL 12.0-15.0 [facility] Work Phone: Blood platelet mean volumeon 01-25-2022 Platelet mean volume (Bld) [Entitic vol] 10.5 fL 6.2-12.0 [facility] Work Phone: Determination of erythrocyte mean corpuscular volume (MCV)on 01-25-2022 MCV (RBC) [Entitic vol] 90.2 fL 81-99 [facility] Work Phone: Hematocrit Auto (Bld) [Volum e fraction]on 01-25-2022 Hematocrit (Bld) [Volume fraction] 34.0 % 37-47 [facility] Work Phone: Laboratory - Chemistry and C hemistry - challengeon 01-25-2022 ALP [Catalytic activity/Vol] 87 U/L 45-117 [facility] Work Phone: ALT [Catalytic activity/Vol] 25 U/L 13-56 [facility] Work Phone: CO2 [Moles/Vol] 23.0 mmol/L 21.0-32.0 [facility] Work Phone: Globulin (S) [Mass/Vol] 3.7 g/dL 2.2-4.2 [facility] Work Phone: Urea nitrogen/Creatinine [Mass ratio] 7.1 mg/mg 10-20 [facility] Work Phone: Laboratory - Hematology and Cell countson 01-25-2022 Erythrocyte distribution width (RBC) [Entitic vol] 44.4 fL 35.1-43.9 [facility] Work Phone: Erythrocyte distribution width (RBC) [Ratio] 13.6 % 11.6-14.6 [facility] Work Phone: MCH (RBC) [Entitic mass] 30.8 pg 27.0-32.0 [facility] Work Phone: MCHC Auto (RBC) [Mass/Vol]on 01-25-2022 MCHC (RBC) [Mass/Vol] 34.1 g/dL 32-36 [facility] Work Phone: No Panel Informationon 01-25 Estimated GFR (MDRD) Amer 168 mL/min >60 [facility] Work Phone: Comment on above: GFR Calc Estimated GFR (MDRD) Non-Af Amer 139 mL/min >60 [facility] Work Phone: Comment on above: Non- GFR Calc Platelets bldon 01-25-2022 Platelets (Bld) [#/Vol] 281 10*3/uL 150-450 [facility] Work Phone: Serum or plasma albumin chet urement (mass/volume)on 01-25-2022 Albumin [Mass/Vol] 2.7 g/dL 3.2-5.0 [facility] Work Phone: Serum or plasma albumin/glob ulin mass ratioon 01-25-2022 Albumin/Globulin [Mass ratio] 0.7 {ratio} 0.9-2.4 [facility] Work Phone: Serum or plasma calcium chet urement (mass/volume)on 01-25-2022 Calcium [Mass/Vol] 8.7 mg/dL 8.5-10.1 [facility] Work Phone: Serum or plasma creatinine m easurement (mass/volume)on 01-25-2022 Creatinine [Mass/Vol] 0.57 mg/dL 0.55-1.02 [facility] Work Phone: Comment on above: The validity of the calculated GFR & GFRAA in patients over 70 years has not been determined. Clinical correlation is essential. Serum or plasma urea nitroge n measurement (mass/volume)on 01-25-2022 Urea nitrogen [Mass/Vol] 4 mg/dL 7-18 [facility] Work Phone: Thin prep Papanicolaou smear with manual screeningon 01-25-2022 Thin prep Papanicolaou smear with manual screening 8 U/L 15-37 [facility] Work Phone: Thin prep Papanicolaou smear with manual screening 6 5-15 [facility] Work Phone: Thin prep Papanicolaou smear with manual screening 150 U/L 84-246 [facility] Work Phone: Basophil percentageon 2021 WBC (Bld) [#/Vol] 12.0 10*3/uL 4.4-11.0 [facility] Work Phone: Blood erythrocytes count (nu mber/volume)on 01-18-2022 RBC (Bld) [#/Vol] 3.93 10*6/uL 4.2-5.4 [facility] Work Phone: Blood hemoglobin measurement (mass/volume)on 01-18-2022 Hemoglobin (Bld) [Mass/Vol] 12.5 g/dL 12.0-15.0 [facility] Work Phone: Blood platelet mean volumeon 01-18-2022 Platelet mean volume (Bld) [Entitic vol] 10.2 fL 6.2-12.0 [facility] Work Phone: Determination of erythrocyte mean corpuscular volume (MCV)on 01-18-2022 MCV (RBC) [Entitic vol] 90.6 fL 81-99 [facility] Work Phone: Hematocrit Auto (Bld) [Volum e fraction]on 01-18-2022 Hematocrit (Bld) [Volume fraction] 35.6 % 37-47 [facility] Work Phone: Laboratory - Chemistry and C hemistry - challengeon 01-18-2022 ALT [Catalytic activity/Vol] 26 U/L 13-56 [facility] Work Phone: Laboratory - Hematology and Cell countson 01-18-2022 Erythrocyte distribution width (RBC) [Entitic vol] 43.7 fL 35.1-43.9 [facility] Work Phone: Erythrocyte distribution width (RBC) [Ratio] 13.2 % 11.6-14.6 [facility] Work Phone: MCH (RBC) [Entitic mass] 31.8 pg 27.0-32.0 [facility] Work Phone: MCHC Auto (RBC) [Mass/Vol]on 01-18-2022 MCHC (RBC) [Mass/Vol] 35.1 g/dL 32-36 [facility] Work Phone: No Panel Informationon 01-18 Estimated Creatinine Clearance Calc 178.59 ml/min [facility] Work Phone: Estimated GFR (MDRD) Amer 200 mL/min >60 [facility] Work Phone: Comment on above: GFR Calc Estimated GFR (MDRD) Non-Af Amer 165 mL/min >60 [facility] Work Phone: Comment on above: Non- GFR Calc Platelets bldon 01-18-2022 Platelets (Bld) [#/Vol] 311 10*3/uL 150-450 [facility] Work Phone: Serum or plasma creatinine m easurement (mass/volume)on 01-18-2022 Creatinine [Mass/Vol] 0.49 mg/dL 0.55-1.02 [facility] Work Phone: Comment on above: The validity of the calculated GFR & GFRAA in patients over 70 years has not been determined. Clinical correlation is essential. Serum or plasma uric acid me asurement (mass/volume)on 01-18-2022 Urate [Mass/Vol] 4.7 mg/dL 2.6-6.0 [facility] Work Phone: Comment on above: The drugs N-Acetylcy steine and Metamizole may falsely depress this assay. Thin prep Papanicolaou smear with manual screeningon 01-18-2022 Thin prep Papanicolaou smear with manual screening 9 U/L 15- [facility] Work Phone: Urine creatinine measurement (mass/volume)on 01-18-2022 Creatinine (U) [Mass/Vol] 44.20 mg/dL NO RANGE EST. [facility] Work Phone: Urine protein measurement (m ass/volume)on 01-18-2022 Protein (U) [Mass/Vol] 13.2 mg/dL 0.0-11.8 [facility] Work Phone: Urine protein/creatinine mas s ratioon 01-18-2022 Protein/Creatinine (U) [Mass ratio] 299 mg/g CRE 0-200 [facility] Work Phone: No Panel Informationon 12-28 Vaginal Amniotic Fluid Detection Negative Negative [facility] Work Phone: Comment on above: Amniotic fluid not p resent indicates No Rupture of FetalMembranes at time of specimen collection. Basophil percentageon 2021 Bilirubin [Mass/Vol] 0.40 mg/dL 0.20-1.00 [facility] Work Phone: Comment on above: For patients on eltr ombopag therapy, use of Dimension [place] TBIL is not recommended. Chloride [Moles/Vol] 107 mmol/L 98-107 [facility] Work Phone: Glucose [Mass/Vol] 122 mg/dL 74-106 [facility] Work Phone: Comment on above: Fasting Glucose resu lt from 100 to 125 mg/dL suggests IMPAIRED HOMEOSTASIS per A.D.A. criteria. Potassium [Moles/Vol] 3.3 mmol/L 3.5-5.1 [facility] Work Phone: Protein [Mass/Vol] 6.8 g/dL 6.4-8.2 [facility] Work Phone: Sodium [Moles/Vol] 139 mmol/L 136-145 [facility] Work Phone: WBC (Bld) [#/Vol] 10.9 10*3/uL 4.4-11.0 [facility] Work Phone: Blood erythrocytes count (nu mber/volume)on 12-26-2021 RBC (Bld) [#/Vol] 3.99 10*6/uL 4.2-5.4 [facility] Work Phone: Blood hemoglobin measurement (mass/volume)on 12-26-2021 Hemoglobin (Bld) [Mass/Vol] 12.4 g/dL 12.0-15.0 [facility] Work Phone: Blood platelet mean volumeon 12-26-2021 Platelet mean volume (Bld) [Entitic vol] 10.3 fL 6.2-12.0 [facility] Work Phone: Determination of erythrocyte mean corpuscular volume (MCV)on 12-26-2021 MCV (RBC) [Entitic vol] 91.7 fL 81-99 [facility] Work Phone: Gestational diabetes screen 1-hour screen with 50g oral glucose loadon 12-26-2021 Glucose 1 Hr post 50 g glucose PO [Mass/Vol] 122 mg/dL 70-140 [facility] Work Phone: Hematocrit Auto (Bld) [Volum e fraction]on 12-26-2021 Hematocrit (Bld) [Volume fraction] 36.6 % 37-47 [facility] Work Phone: Laboratory - Chemistry and C hemistry - challengeon 12-26-2021 ALP [Catalytic activity/Vol] 74 U/L 45-117 [facility] Work Phone: ALT [Catalytic activity/Vol] 22 U/L 13-56 [facility] Work Phone: CO2 [Moles/Vol] 27.0 mmol/L 21.0-32.0 [facility] Work Phone: Globulin (S) [Mass/Vol] 3.9 g/dL 2.2-4.2 [facility] Work Phone: Urea nitrogen/Creatinine [Mass ratio] 10.0 mg/mg 10-20 [facility] Work Phone: Laboratory - Hematology and Cell countson 12-26-2021 Erythrocyte distribution width (RBC) [Entitic vol] 45.4 fL 35.1-43.9 [facility] Work Phone: Erythrocyte distribution width (RBC) [Ratio] 13.5 % 11.6-14.6 [facility] Work Phone: MCH (RBC) [Entitic mass] 31.1 pg 27.0-32.0 [facility] Work Phone: MCHC Auto (RBC) [Mass/Vol]on 12-26-2021 MCHC (RBC) [Mass/Vol] 33.9 g/dL 32-36 [facility] Work Phone: No Panel Informationon 12-26 Estimated GFR (MDRD) Amer 157 mL/min >60 [facility] Work Phone: Comment on above: GFR Calc Estimated GFR (MDRD) Non-Af Amer 130 mL/min >60 [facility] Work Phone: Comment on above: Non- GFR Calc Miscellaneous Test See comment [facility] Work Phone: Comment on above: TEST RESULT UNITS RE F INTERVALbile Acids 1.2 umol/L 0.0 - 10.0 [facility] ORIGINAL REPORT ON FILE IN LAB CONTAINS ADDITIONAL TEST SITE INFORMATION. Platelets bldon 12-26-2021 Platelets (Bld) [#/Vol] 345 10*3/uL 150-450 [facility] Work Phone: Serum or plasma albumin chet urement (mass/volume)on 12-26-2021 Albumin [Mass/Vol] 2.9 g/dL 3.2-5.0 [facility] Work Phone: Serum or plasma albumin/glob ulin mass ratioon 12-26-2021 Albumin/Globulin [Mass ratio] 0.7 {ratio} 0.9-2.4 [facility] Work Phone: Serum or plasma calcium chet urement (mass/volume)on 12-26-2021 Calcium [Mass/Vol] 8.9 mg/dL 8.5-10.1 [facility] Work Phone: Serum or plasma creatinine m easurement (mass/volume)on 12-26-2021 Creatinine [Mass/Vol] 0.60 mg/dL 0.55-1.02 [facility] Work Phone: Comment on above: The validity of the calculated GFR & GFRAA in patients over 70 years has not been determined. Clinical correlation is essential. Serum or plasma urea nitroge n measurement (mass/volume)on 12-26-2021 Urea nitrogen [Mass/Vol] 6 mg/dL 7-18 [facility] Work Phone: Thin prep Papanicolaou smear with manual screeningon 12-26-2021 Thin prep Papanicolaou smear with manual screening 8 U/L 15-37 [facility] Work Phone: Thin prep Papanicolaou smear with manual screening 5 5-15 [facility] Work Phone: Culture, urineon 11-19-2021 Bacteria identified Cx Nom (U) Positive [facility] Work Phone: EMERGENCY REPORTon EMERGENCY REPORT [facility] EMERGENCY ROOM REPORT NAME ACCOUNT SEX AGE ADMIT DISCHARGE PT MED. RECORD# NUMBER DATE DATE TYPE YOKASTA PRETTY [id number] F 25 03/12/21 03/12/21 3 PATRICE [id number] ROOM: ER DATE OF : 1995 DICTATING PHYSICIAN: Blossom Clements CHIEF COMPLAINT: Left lower quadrant abdominal [...] The patient was given symptomatic control. 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 Her questions were sought and answered. Return precautions were discussed. Dictated By: Blossom Clements DO 03/13/21 00:09 JOB #: [id number] Transcribed By: [email or web address] 03/13/21 12:48 Electronically signed by: DR. BLOSSOM CLEMENTS DO 03/24/21 20:32 Page 2 of 2 YOKASTA PRETTY Emergency Room Report PATRICE Dalton [facility] CT ABDOMEN/PELVIS Won 2020 CT ABDOMEN/PELVIS [place] [address] Patient: YOKASTA PRETTY Phone#: : 1995 Age: 25 Gender: F Pt. Type: Account: [id number] Location: [facility] Ordering: [facility] Exam Date: 03/21/2021/13:14 Family Phys: Charge Code: [id number] Physician: York Order #: [id number] DLP Dose#: [id number] PROCEDURE: CT ABDOMEN/PELVIS WITH [...] Age: 25 Gender: F Pt. Type: Account: [id number] Location: [facility] Ordering: [facility] Exam Date: 03/21/2021/13:14 Family Phys: Charge Code: [id number] Physician: York Order #: [id number] DLP Dose#: [id number] CONCLUSION: 1. Trace free fluid is present in the pelvis. 2. There is otherwise no evidence of acute abdominal or pelvic abnormality. Dictated by: Sylvia Leal MD on 03/21/2021 at 14:21 Approved by: Sylvia Leal MD on 03/21/2021 at 14:29 Normal [facility] CBC + DIFFon 03-13-2021 Baso # 0.10 x10EE3/UL Normal 0.00 - 0.10 [facility] Comment on above: Performed By: #### 2 98161 #### [facility],[address] [place], [place] [id number] Basophils/100 WBC (Bld) 0.9 % Normal 0.0 - 2.0 [facility] Comment on above: Performed By: #### 2 92581 #### [facility],[address] [place], [place] [id number] CBC + DIFF Normal [facility] Comment on above: Result Comment: CBC- COMPLETE BLOOD COUNT Performed By: #### 2 60845 #### [facility],[address] [place] [address]5812 EO # 0.30 x10EE3/UL Normal 0.00 - 0.50 [facility] Comment on above: Performed By: #### 2 36120 #### [facility],[address] [place] [address] 78471 Eosinophils/100 WBC (Bld) 2.4 % Normal 0.0 - 7.0 [facility] Comment on above: Performed By: #### 2 33959 #### [facility],[address] [place], [place] [id number] Erythrocyte distribution width (RBC) [Ratio] 12.7 % Normal 12.0 - 15.6 [facility] Comment on above: Performed By: #### 2 20026 #### [facility],[address] [place] [address] Hematocrit (Bld) [Volume fraction] 42.0 % Normal 34.0 - 46.0 [facility] Comment on above: Performed By: #### 2 20819 #### [facility],[address] [place] [address] Hemoglobin (Bld) [Mass/Vol] 14.6 g/dL Normal 12.0 - 16.0 [facility] Comment on above: Performed By: #### 2 08623 #### [facility],[address] [place] [address] 07194 Lymph # 3.40 x10EE3/UL High 0.80 - 2.80 [facility] Comment on above: Performed By: #### 2 71390 #### [facility],[address] [place] [address] 53710 Lymphocytes/100 WBC (Bld) 26.8 % Normal 20.0 - 45.0 [facility] Comment on above: Performed By: #### 2 55358 #### [facility],[address] [place] [address] 19442 MANUAL DIFF N/A Normal [facility] Comment on above: Performed By: #### 2 40226 #### [facility],[address] [place] [address] MCH (RBC) [Entitic mass] 31 pg Normal 27 - 33 [facility] Comment on above: Performed By: #### 2 22445 #### [facility],[address] [place] [address] MCHC 35 X10 3 Normal 32 - 36 [facility] Comment on above: Performed By: #### 2 56074 #### [facility],[address] [place], [place] [address] MCV (RBC) [Entitic vol] 88 fL Normal 80 - 99 [facility] Comment on above: Performed By: #### 2 82971 #### [facility],[address] [place] [address] Beaver # 0.90 x10EE3/UL Normal 0.20 - 1.00 [facility] Comment on above: Performed By: #### 2 49134 #### [facility],[address] [place] [address] 09121 MONOS % 7.3 % Normal 0.0 - 10.0 [facility] Comment on above: Performed By: #### 2 44831 #### [facility],[address] [place] [address] Morphology Renny (Bld) [Interp] N/A Normal [facility] Comment on above: Result Comment: {CD] Performed By: #### 2 72535 #### [facility],[address] [place] [address] Neut # 8.00 x10EE3/UL High 1.50 - 7.10 [facility] Comment on above: Performed By: #### 2 33628 #### [facility],[address] [place] [address] Neutrophils/100 WBC (Bld) 62.6 % Normal 46.0 - 76.0 [facility] Comment on above: Performed By: #### 2 87964 #### [facility],[address] [place] [address] 90885 PLATELET 437 x10EE3/UL Normal 150 - 450 [facility] Comment on above: Performed By: #### 2 16075 #### [facility],[address] [place] [address] 38525 Platelet mean volume (Bld) [Entitic vol] 8.4 fL Normal 6.6 - 10.5 [facility] Comment on above: Result Comment: AUTO MATED DIFFERENTIAL Performed By: #### 2 69062 #### [facility],[address] [place] [address] 31325 RBC 4.76 x 10EE6/UL Normal 4.10 - 5.30 [facility] Comment on above: Performed By: #### 2 36262 #### [facility],[address] [place] [address] 36621 WBC 12.8 x 10EE3/UL High 4.5 - 10.8 [facility] Comment on above: Performed By: #### 2 26248 #### [facility],[address] [place] [address] 29218 CMP with eGFRon 03-13-2021 AGE 25 years Normal [facility] Comment on above: Performed By: #### 2 45356 #### [facility],[address] [place] [address] 35923 Albumin [Mass/Vol] 4.3 g/dL Normal 3.4 - 5.0 [facility] Comment on above: Performed By: #### 2 06112 #### [facility],[address] [place] [address] 13406 Albumin/Globulin [Mass ratio] 1.4 {ratio} Normal 0.9 - 1.6 [facility] Comment on above: Performed By: #### 2 64620 #### [facility],[address] [place] [address] 94762 ALK PHOS 72 U/L Normal 46 - 116 [facility] Comment on above: Performed By: #### 2 00032 #### [facility],[address] [place] [address] 68060 ALT [Catalytic activity/Vol] 60 U/L High 14 - 59 [facility] Comment on above: Performed By: #### 2 96468 #### [facility],[address] [place] [address] 05135 Anion gap [Moles/Vol] 15 mmol/L Normal 10 - 20 [facility] Comment on above: Performed By: #### 2 19339 #### [facility],[address] [place], [place] [address] AST [Catalytic activity/Vol] 18 U/L Normal 13 - 39 [facility] Comment on above: Performed By: #### 2 00819 #### [facility],[address] [place], [place] [address] B/C RATIO 14 ratio Normal 0 - 30 [facility] Comment on above: Performed By: #### 2 41826 #### [facility],[address] [place] [address] 93977 Bilirubin [Mass/Vol] 0.4 mg/dL Normal 0.2 - 1.0 [facility] Comment on above: Performed By: #### 2 26656 #### [facility],[address] [place] [address] 20873 Calcium [Mass/Vol] 9.3 mg/dL Normal 8.5 - 10.1 [facility] Comment on above: Performed By: #### 2 53461 #### [facility],[address] [place] [address] 94874 Chloride [Moles/Vol] 105 mmol/L Normal 98 - 107 [facility] Comment on above: Performed By: #### 2 96031 #### [facility],[address] [place] [address] 78213 CMP with eGFR Normal [facility] Comment on above: Result Comment: COMP REHENSIVE METABOLIC PANEL Performed By: #### 2 14944 #### [facility],[address] [place] [address] 16698 CO2 [Moles/Vol] 26.5 mmol/L Normal 21.0 - 32.0 [facility] Comment on above: Performed By: #### 2 82551 #### [facility],[address] [place] [address] 58168 Creatinine [Mass/Vol] 0.9 mg/dL Normal 0.5 - 1.0 [facility] Comment on above: Performed By: #### 2 43021 #### [facility],[address] [place] [address] 53347 GFR/1.73 sq M.predicted among non-blacks MDRD (S/P/Bld) [Vol rate/Area] mL/min/{1.73_m2} Normal 60 - 999 [facility] Comment on above: Performed By: #### 2 73944 #### [facility],[address] [place] [address] 93016 Result Comment: ACCO RDING TO THE NATIONAL KIDNEY DISEASE EDUCATION PROGRAM(NKDE), A NORMAL eGFR IS A VALUE GREATER THAN OR EQUAL TO 60 ML/MIN/1.73 SQ METERS. CHRONIC KIDNEY DISEASE: <60mL/MIN/1.73 SQ METERS KIDNEY FAILURE: <15mL/MIN/1.73 SQ METERS THIS TEST SHOULD ONLY BE USED FOR PATIENTS 18 YEARS OF AGE AND OLDER. Globulin (S) [Mass/Vol] 3.0 g/dL Normal 1.5 - 3.8 [facility] Comment on above: Performed By: #### 2 42074 #### [facility],[address] [place] [address] 28772 Glucose [Mass/Vol] 107 mg/dL High 74 - 106 [facility] Comment on above: Performed By: #### 2 10203 #### [facility],[address] [place] [address] 61285 Potassium [Moles/Vol] 3.7 mmol/L Normal 3.5 - 5.1 [facility] Comment on above: Performed By: #### 2 87700 #### [address] [address] Protein [Mass/Vol] 7.3 g/dL Normal 6.4 - 8.2 [facility] Comment on above: Performed By: #### 2 40654 #### [address] [address] Sodium [Moles/Vol] 143 mmol/L Normal 136 - 145 [facility] Comment on above: Performed By: #### 2 67700 #### [address] [address] Urea nitrogen [Mass/Vol] 13 mg/dL Normal 7 - 18 [facility] Comment on above: Performed By: #### 2 85846 #### [address] [address] PREG SERUM QUANTon HCG QUANTITATIVE 0 mIU/mL Normal 0 - 6 [facility] Comment on above: Result Comment: Toby osheabernardino Range: Male: <5 Female: Non: <5 1 [...] 3RD TRIMESTER 1000-50,000 Performed By: #### 2 28431 #### [address] [address] URINALYSISon 03-13-2021 Amorphous 1+ Normal [facility] Comment on above: Performed By: #### 2 52858 #### [address] [address] Bacteria 2+ Normal [facility] Comment on above: Performed By: #### 2 29571 #### [facility],[address] [place] [address] 95569 Bilirubin Ql (U) Negative Normal NORMAL: NEGATIVE [facility] Comment on above: Performed By: #### 2 00678 #### [facility],[address] [place] [address] 80603 Casts NONE Normal [facility] Comment on above: Performed By: #### 2 43325 #### [facility],[address] [place] [address] 70775 Clarity (U) clear Normal NORMAL: CLEAR [facility] Comment on above: Performed By: #### 2 48638 #### [facility],[address] [place] [address] 02837 Color (U) ro Normal NORMAL: YELLOW [facility] Comment on above: Performed By: #### 2 70936 #### [facility],[address] [place] [address] 94942 Crystals LM Nom (Urine sed) NONE Normal [facility] Comment on above: Performed By: #### 2 32011 #### [facility],[address] [place] [address] 36878 Epi Cells MANY Normal [facility] Comment on above: Performed By: #### 2 51174 #### [facility],[address] [place] [address] 50003 Glucose Ql (U) NORM Normal NORMAL: NORMAL [facility] Comment on above: Performed By: #### 2 20772 #### [facility],[address] [place] [address] 15825 Hemoglobin Ql (U) 10 Abnormal NORMAL: NEGATIVE [facility] Comment on above: Performed By: #### 2 82522 #### [facility],[address] [place] [address] 57420 Ketone Negative Normal NORMAL: NEGATIVE [facility] Comment on above: Performed By: #### 2 85774 #### [facility],[address] [place] [address] Leukocytes Negative Normal NORMAL: NEGATIVE [facility] Comment on above: Performed By: #### 2 95534 #### [facility],[address] [place] [address] Mucous 1+ Normal [facility] Comment on above: Performed By: #### 2 69666 #### [facility],[address] [place] [address] Nitrite Ql (U) Negative Normal NORMAL: NEGATIVE [facility] Comment on above: Performed By: #### 2 06448 #### [facility],[address] [place] [address] pH (U) 6 [pH] Normal NORMAL: 5.0-8.0 [facility] Comment on above: Performed By: #### 2 83064 #### [facility],[address] [place] [address] Protein Ql (U) Negative Normal NORMAL: NEGATIVE [facility] Comment on above: Performed By: #### 2 07957 #### [facility],[address] [place] [address] Rbc 0-5 Normal 0-3/hpf [facility] Comment on above: Performed By: #### 2 43295 #### [facility],[address] [place] [address] Sp Canvas 1.025 Normal NORMAL: 1.010-1.030 [facility] Comment on above: Performed By: #### 2 94828 #### [facility],[address] [place] [address] Specimen Type UNSPECIFIED Normal [facility] Comment on above: Performed By: #### 2 16065 #### [facility],[address] [place] [address] Urinalysis dipstick W Reflex Microscopic panel (U) SEE BELOW Normal [facility] Comment on above: Result Comment: MICR OSCOPIC Performed By: #### 2 82494 #### [facility],[address] [place] [address] 56689 Urobilinog NORM Normal NORMAL: NORMAL [facility] Comment on above: Performed By: #### 2 33598 #### [facility],[address] [place] [address] 62105 Wbc NONE Normal 0-5/hpf [facility] Comment on above: Performed By: #### 2 49059 #### [facility],[address] [place] [address] 66679 Yeast NONE Normal [facility] Comment on above: Performed By: #### 2 90711 #### [facility],[address] [place] [address] 73141 [place] PELVICon 03-13-2021 [place] [address] Patient: YOKASTA PRETTY Phone#: : 1995 Age: 25 Gender: F Pt. Type: ER Account: [id number] Location: [facility] Ordering: DR. BLOSSOM CLEMENTS Exam Date: 03/12/2021/22:35 Family Phys: Charge Code: [id number] Physician: York Order #: [id number] DLP Dose#: PROCEDURE: PELVIC ULTRASOUND, TRANSABDOMINAL ENDOVAGINAL [...] Sylvia Leal MD on 03/13/2021 at 9:01 Normal [facility] Progress Noteon 07-29-2017 Audio/Video Technician Authentication Interface Message Text Patient ID: Yokasta [...] mood disorderRuptured ovarian cyst- Referral to Obstetrics/GynecologyR etfranklin in about 1 year (around 07/29/2018) for well check.Yokasta is doing pretty well right now. Would encourage her to continueexercising and eat healthier. Patient to see TECHNICAL SOLUTIONS DIRECTOR. I think L[facility] would be greatfor her.Subjective:HPI Comments: Working at [employer]. Burdick at [employer]. No med changes recentlyThe patient's reason [...] the patient's hearing.Patient is being seen by waredresser or landscape and yardwork laborer.Primary Care Review of SystemsObjective:Physi dhruv ExamConstitutional: She [...] height 172.5 cm, weight (!)110.9 kg. Normal [facility] Stool gastrointestinal hemog lobin detection by immunologic method Lower GI hemoglobin IA Ql (Stl) [facility] Work Phone: Vital Signs Date Time Vital Sign Value Performing Clinician Facility 07-27-2025 09:31-0400 Body mass index (BMI) [Ratio] 41.27 kg/m2 Funmilayo Bernardo MD Work Phone: [facility] 07-27-2025 09:31-0400 Body weight 123.11 kg Funmilayo Bernardo MD Work Phone: [facility] 07-27-2025 09:31-0400 Diastolic blood pressure 81 mm[Hg] Funmilayo Bernardo MD Work Phone: [facility] Comment on above: BP machine 07-27-2025 09:31-0400 Systolic blood pressure 122 mm[Hg] Funmilayo Bernardo MD Work Phone: [facility] Comment on above: BP machine 07-22-2025 03:41-0400 Diastolic blood pressure 67 mm[Hg] Nighat LANGE Work Phone: [facility] 07-22-2025 03:41-0400 Heart rate 83 /min Nighat LANGE Work Phone: [facility] 07-22-2025 03:41-0400 Systolic blood pressure 139 mm[Hg] Nighat LANGE Work Phone: [facility] 07-22-2025 03:07-0400 Body height 172.72 cm Nighat LANGE Work Phone: [facility] 07-22-2025 03:07-0400 Body mass index (BMI) [Ratio] 41.1 kg/m2 Nighat Munoz [employer] DIVISION MANAGER-C Work Phone: [facility] 07-22-2025 03:07-0400 Body weight 122.83 kg Nighat Munoz [employer] DIVISION MANAGER-C Work Phone: [facility] 07-22-2025 03:03-0400 Body temperature 97.4 [degF] Nighat Munoz [employer] DIVISION MANAGER-C Work Phone: [facility] 07-22-2025 03:03-0400 Respiratory rate 16 /min Nighat Munoz [employer] DIVISION MANAGER-C Work Phone: [facility] 07-22-2025 03:03-0400 SaO2% (BldA) [Mass fraction] 98 % Nighat Munoz [employer] DIVISION MANAGER-C Work Phone: [facility] 07-20-2025 08:49-0400 Body mass index (BMI) [Ratio] 41.14 kg/m2 Epifanio Sanchez MD Work Phone: [facility] 07-20-2025 08:49-0400 Body weight 122.74 kg Epifanio Sanchez MD Work Phone: [facility] 07-20-2025 08:49-0400 Diastolic blood pressure 80 mm[Hg] Epifanio Sanchez MD Work Phone: [facility] 07-20-2025 08:49-0400 Systolic blood pressure 130 mm[Hg] Epifanio Sanchez MD Work Phone: [facility] 07-13-2025 08:49-0400 Body mass index (BMI) [Ratio] 40.69 kg/m2 Epifanio Sanchez MD Work Phone: [facility] 07-13-2025 08:49-0400 Body weight 121.38 kg Epifanio Sanchez MD Work Phone: [facility] 07-13-2025 08:49-0400 Diastolic blood pressure 84 mm[Hg] Epifanio Sanchez MD Work Phone: [facility] 07-13-2025 08:49-0400 Systolic blood pressure 129 mm[Hg] Epifanio Sanchez MD Work Phone: [facility] 07-02-2025 08:38-0400 Body mass index (BMI) [Ratio] 40.66 kg/m2 Noam Wyman MD Work Phone: [facility] 07-02-2025 08:38-0400 Body weight 121.29 kg Noam Wyman MD Work Phone: [facility] 07-02-2025 08:38-0400 Diastolic blood pressure 72 mm[Hg] Noam Wyman MD Work Phone: [facility] 07-02-2025 08:38-0400 Systolic blood pressure 120 mm[Hg] Noam Wyman MD Work Phone: [facility] 06-22-2025 07:18-0400 Body temperature 97.5 [degF] Nighat Munoz [employer] DIVISION MANAGER-C Work Phone: [facility] 06-22-2025 07:18-0400 Diastolic blood pressure 55 mm[Hg] Nighat Munoz [employer] DIVISION MANAGER-C Work Phone: [facility] 06-22-2025 07:18-0400 Heart rate 63 /min Nighat Munoz [employer] DIVISION MANAGER-C Work Phone: 3(383)[phone] [place] [address] 06-22-2025 07:18-0400 Respiratory rate 16 /min Nighat Munoz [employer] DIVISION MANAGER-C Work Phone: 6(772)116-882711 [place] [address] 06-22-2025 07:18-0400 Systolic blood pressure 104 mm[Hg] Nighat Munoz [employer] DIVISION MANAGER-C Work Phone: 8(666)[phone] [place] [address] 06-22-2025 07:17-0400 SaO2% (BldA) [Mass fraction] 98 % Nighat Munoz [employer] DIVISION MANAGER-C Work Phone: 0(667)[phone] [place] [address] 06-21-2025 16:56-0400 Body height 172.72 cm Nighat Munoz [employer] DIVISION MANAGER-C Work Phone: 3(690)[phone] [place] [address] 06-21-2025 16:56-0400 Body mass index (BMI) [Ratio] 40.6 kg/m2 Nighat Munoz [employer] DIVISION MANAGER-C Work Phone: 3(124)[phone] [place] [address] 06-21-2025 16:56-0400 Body weight 121.1 kg Nighatsundeep CRESPOC Work Phone: [facility] 06-21-2025 14:16-0400 Body mass index (BMI) [Ratio] 40.51 kg/m2 Noam Wyman MD Work Phone: [facility] 06-21-2025 14:16-0400 Body weight 120.84 kg Noam Wyman MD Work Phone: [facility] 06-21-2025 14:16-0400 Diastolic blood pressure 70 mm[Hg] Noam Wyman MD Work Phone: [facility] 06-21-2025 14:16-0400 Systolic blood pressure 110 mm[Hg] Noam Wyman MD Work Phone: [facility] 06-16-2025 09:40-0400 Body mass index (BMI) [Ratio] 40.14 kg/m2 Kayla Reid MD Work Phone: [facility] 06-16-2025 09:40-0400 Body weight 119.75 kg Kayla Reid MD Work Phone: [facility] 06-16-2025 09:40-0400 Diastolic blood pressure 78 mm[Hg] Kayla Reid MD Work Phone: [facility] 06-16-2025 09:40-0400 Systolic blood pressure 130 mm[Hg] Kayla Reid MD Work Phone: [facility] 06-03-2025 10:16-0400 Body mass index (BMI) [Ratio] 39.53 kg/m2 Epifanio Sanchez MD Work Phone: [facility] 06-03-2025 10:16-0400 Body weight 117.94 kg Epifanio Sanchez MD Work Phone: [facility] 06-03-2025 10:16-0400 Diastolic blood pressure 70 mm[Hg] Epifanio Sanchez MD Work Phone: [facility] 06-03-2025 10:16-0400 Systolic blood pressure 118 mm[Hg] Epifanio Sanchez MD Work Phone: [facility] 05-06-2025 08:03-0400 Body mass index (BMI) [Ratio] 39.38 kg/m2 Judit Hamaynor 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 Work Phone: [facility] 05-06-2025 08:03-0400 Body weight 117.48 kg Judit Haury 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 Work Phone: [facility] 05-06-2025 08:03-0400 Diastolic blood pressure 74 mm[Hg] Judit Haury 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 Work Phone: [facility] 05-06-2025 08:03-0400 Systolic blood pressure 112 mm[Hg] Judit Haury 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 Work Phone: [facility] 04-14-2025 12:58-0400 Body mass index (BMI) [Ratio] 39.08 kg/m2 Nighat Maloney INSIDE SALES ENGINEER.CNM Work Phone: [facility] 04-14-2025 12:58-0400 Body weight 116.57 kg Nighat Maloney INSIDE SALES ENGINEER.CNM Work Phone: [facility] 04-14-2025 12:58-0400 Diastolic blood pressure 76 mm[Hg] Nighat Maloney INSIDE SALES ENGINEER.CNM Work Phone: [facility] 04-14-2025 12:58-0400 Systolic blood pressure 120 mm[Hg] Nighat Maloney INSIDE SALES ENGINEER.CNM Work Phone: [facility] 04-08-2025 08:59-0400 Body mass index (BMI) [Ratio] 38.92 kg/m2 Judit Hamaynor 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 Work Phone: [facility] 04-08-2025 08:59-0400 Body weight 116.12 kg Judit Hamaynor 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 Work Phone: [facility] 04-08-2025 08:59-0400 Diastolic blood pressure 80 mm[Hg] Judit Haury 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 Work Phone: [facility] 04-08-2025 08:59-0400 Systolic blood pressure 120 mm[Hg] Judit Pimentel 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 Work Phone: [facility] 03-16-2025 08:05-0400 Body mass index (BMI) [Ratio] 39.23 kg/m2 Nighat Maloney INSIDE SALES ENGINEER.CNM Work Phone: [facility] 03-16-2025 08:05-0400 Body weight 117.03 kg Nighat Maloney INSIDE SALES ENGINEER.CNM Work Phone: [facility] 03-16-2025 08:05-0400 Diastolic blood pressure 68 mm[Hg] Nighat Maloney INSIDE SALES ENGINEER.CNM Work Phone: [facility] 03-16-2025 08:05-0400 Systolic blood pressure 112 mm[Hg] Nighat Maloney INSIDE SALES ENGINEER.CNM Work Phone: [facility] 02-16-2025 09:29-0400 Body mass index (BMI) [Ratio] 40.45 kg/m2 Nighat Maloney INSIDE SALES ENGINEER.CNM Work Phone: [facility] 02-16-2025 09:29-0400 Body weight 120.66 kg Nighat Maloney INSIDE SALES ENGINEER.CNM Work Phone: [facility] 02-16-2025 09:29-0400 Diastolic blood pressure 78 mm[Hg] Nighat Maloney INSIDE SALES ENGINEER.CNM Work Phone: [facility] 02-16-2025 09:29-0400 Systolic blood pressure 122 mm[Hg] Nighat Maloney INSIDE SALES ENGINEER.CNM Work Phone: [facility] 01-21-2025 09:30-0500 Body height 172.7 cm Judit Pimentel APRN.SLOT FLOOR ATTENDANT Work Phone: [facility] 01-21-2025 09:30-0500 Body mass index (BMI) [Ratio] 41.81 kg/m2 Judit Pimentel APRN.SLOT FLOOR ATTENDANT Work Phone: [facility] 01-21-2025 09:30-0500 Body weight 124.74 kg Judit Marquezmaynor 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 Work Phone: [facility] 01-21-2025 09:30-0500 Diastolic blood pressure 70 mm[Hg] Judit Marquezury 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 Work Phone: [facility] 01-21-2025 09:30-0500 Systolic blood pressure 128 mm[Hg] Judit Marquezmaynor 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 Work Phone: [facility] 12-23-2024 15:26-0500 Body mass index (BMI) [Ratio] 43.18 kg/m2 Bettie Plotts INSIDE SALES ENGINEER.CNM Work Phone: [facility] 12-23-2024 15:26-0500 Body weight 128.82 kg Bettie Plotts INSIDE SALES ENGINEER.CNM Work Phone: [facility] 12-23-2024 15:26-0500 Diastolic blood pressure 76 mm[Hg] Bettie Plotts INSIDE SALES ENGINEER.CNM Work Phone: [facility] 12-23-2024 15:26-0500 Systolic blood pressure 118 mm[Hg] Bettie Plotts INSIDE SALES ENGINEER.CNM Work Phone: [facility] 11-30-2024 15:42-0500 Body mass index (BMI) [Ratio] 41.6 kg/m2 Jason Bettencourt MD Work Phone: [facility] 11-30-2024 15:42-0500 Body temperature 99.3 [degF] Jason Bettencourt MD Work Phone: [facility] 11-30-2024 15:42-0500 Body weight 124.1 kg Jason Bettencourt MD Work Phone: [facility] 11-30-2024 15:42-0500 Diastolic blood pressure 68 mm[Hg] Jason Bettencourt MD Work Phone: [facility] 11-30-2024 15:42-0500 Heart rate 103 /min Jason Bettencourt MD Work Phone: [facility] 11-30-2024 15:42-0500 Respiratory rate 22 /min Jason Bettencourt MD Work Phone: [facility] 11-30-2024 15:42-0500 SaO2% (BldA) [Mass fraction] 100 % Jason Bettencourt MD Work Phone: [facility] 11-30-2024 15:42-0500 Systolic blood pressure 132 mm[Hg] Jason Bettencourt MD Work Phone: [facility] 03-25-2024 07:47-0400 Body mass index (BMI) [Ratio] 42.24 kg/m2 Nighat Qiu 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 Work Phone: [facility] 03-25-2024 07:47-0400 Body temperature 98.01 [degF] Nighat Qiu 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 Work Phone: [facility] 03-25-2024 07:47-0400 Body weight 126 kg Nighat Qiu 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 Work Phone: [facility] 03-25-2024 07:47-0400 Diastolic blood pressure 72 mm[Hg] Nighat Qiu 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 Work Phone: [facility] 03-25-2024 07:47-0400 Heart rate 98 /min Nighat Qiu 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 Work Phone: [facility] 03-25-2024 07:47-0400 Respiratory rate 18 /min Nighat Qiu 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 Work Phone: [facility] 03-25-2024 07:47-0400 SaO2% (BldA) [Mass fraction] 99 % Nighat Qiu 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 Work Phone: [facility] 03-25-2024 07:47-0400 Systolic blood pressure 124 mm[Hg] Nighat Qiu 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 Work Phone: [facility] 10-17-2023 13:51-0500 Body temperature 97.8 [degF] [facility] 10-17-2023 13:51-0500 Diastolic blood pressure 79 mm[Hg] [facility] 10-17-2023 13:51-0500 Heart rate 77 /min [facility] 10-17-2023 13:51-0500 Respiratory rate 16 /min [facility] 10-17-2023 13:51-0500 SaO2% (BldA) [Mass fraction] 98 % [facility] 10-17-2023 13:51-0500 Systolic blood pressure 118 mm[Hg] [facility] 10-15-2023 11:42-0500 Body height 172.72 cm [facility] 10-15-2023 11:42-0500 Body mass index (BMI) [Ratio] 40.2 kg/m2 [facility] 10-15-2023 11:42-0500 Body weight 120.1 kg [facility] 10-14-2023 08:58-0500 Body weight 119.75 kg Roxanne Rowell MD Work Phone: [facility] 10-14-2023 08:58-0500 Diastolic blood pressure 74 mm[Hg] Roxanne Rowell MD Work Phone: [facility] 10-14-2023 08:58-0500 Systolic blood pressure 122 mm[Hg] Roxanne Rowell MD Work Phone: [facility] 10-10-2023 04:46-0500 Body temperature 97.6 [degF] [facility] 10-10-2023 04:46-0500 Diastolic blood pressure 76 mm[Hg] [facility] 10-10-2023 04:46-0500 Heart rate 93 /min [facility] 10-10-2023 04:46-0500 SaO2% (BldA) [Mass fraction] 96 % [facility] 10-10-2023 04:46-0500 Systolic blood pressure 129 mm[Hg] [facility] 10-10-2023 04:34-0500 Body height 172.72 cm [facility] 10-10-2023 04:34-0500 Body mass index (BMI) [Ratio] 40.6 kg/m2 [facility] 10-10-2023 04:34-0500 Body weight 121.3 kg [facility] 10-07-2023 09:44-0500 Body weight 120.2 kg Roxanne Rowell MD Work Phone: [facility] 10-07-2023 09:44-0500 Diastolic blood pressure 84 mm[Hg] Roxanne Rowell MD Work Phone: [facility] 10-07-2023 09:44-0500 Systolic blood pressure 126 mm[Hg] Roxanne Rowell MD Work Phone: [facility] 10-04-2023 15:27-0400 Body weight 119.75 kg Nighat Maloney APRN.CNM Work Phone: [facility] 10-04-2023 15:27-0400 Diastolic blood pressure 78 mm[Hg] Nighat Maloney APRN.CNM Work Phone: [facility] 10-04-2023 15:27-0400 Systolic blood pressure 132 mm[Hg] Nighat Maloney APRN.CNM Work Phone: [facility] 10-01-2023 10:32-0400 Body weight 118.39 kg Roxanne Rowell MD Work Phone: [facility] 10-01-2023 10:32-0400 Diastolic blood pressure 80 mm[Hg] Roxanne Rowell MD Work Phone: [facility] 10-01-2023 10:32-0400 Systolic blood pressure 128 mm[Hg] Roxanne Rowell MD Work Phone: [facility] 09-23-2023 09:30-0400 Body weight 117.48 kg Roxanne Rowell MD Work Phone: [facility] 09-23-2023 09:30-0400 Diastolic blood pressure 76 mm[Hg] Roxanne Rowell MD Work Phone: [facility] 09-23-2023 09:30-0400 Systolic blood pressure 117 mm[Hg] Roxanne Rowell MD Work Phone: [facility] 09-22-2023 10:15-0400 Body height 172.72 cm [facility] 09-22-2023 10:15-0400 Body mass index (BMI) [Ratio] 39.4 kg/m2 [facility] 09-22-2023 10:15-0400 Body weight 117.66 kg [facility] 09-22-2023 10:13-0400 Body temperature 98.9 [degF] [facility] 09-22-2023 10:13-0400 Diastolic blood pressure 63 mm[Hg] [facility] 09-22-2023 10:13-0400 Heart rate 85 /min [facility] 09-22-2023 10:13-0400 Systolic blood pressure 125 mm[Hg] [facility] 09-17-2023 14:30-0400 Body weight 117.94 kg Nst Wstr Work Phone: [facility] 09-17-2023 14:30-0400 Diastolic blood pressure 78 mm[Hg] Nst Wstr Work Phone: [facility] 09-17-2023 14:30-0400 Systolic blood pressure 124 mm[Hg] Nst Wstr Work Phone: [facility] 09-11-2023 10:40-0400 Body weight 117.94 kg Roxanne Rowell MD Work Phone: [facility] 09-11-2023 10:40-0400 Diastolic blood pressure 76 mm[Hg] Roxanne Rowell MD Work Phone: [facility] 09-11-2023 10:40-0400 Systolic blood pressure 114 mm[Hg] Roxanne Rowell MD Work Phone: [facility] 08-18-2023 01:05-0400 Diastolic blood pressure 59 mm[Hg] [facility] 08-18-2023 01:05-0400 Heart rate 88 /min [facility] 08-18-2023 01:05-0400 Systolic blood pressure 107 mm[Hg] [facility] 08-18-2023 01:04-0400 Body temperature 98.7 [degF] [facility] 08-18-2023 01:04-0400 SaO2% (BldA) [Mass fraction] 98 % [facility] 08-17-2023 20:17-0400 Diastolic blood pressure 62 mm[Hg] [facility] 08-17-2023 20:17-0400 Heart rate 68 /min [facility] 08-17-2023 20:17-0400 Systolic blood pressure 118 mm[Hg] [facility] 08-17-2023 19:18-0400 Body temperature 98.3 [degF] [facility] 08-17-2023 18:51-0400 Body height 172.72 cm [facility] 08-17-2023 18:51-0400 Body mass index (BMI) [Ratio] 38.9 kg/m2 [facility] 08-17-2023 18:51-0400 Body weight 116.39 kg [facility] 08-17-2023 18:46-0400 SaO2% (BldA) [Mass fraction] 97 % [facility] 08-02-2023 10:34-0400 Body weight 117.94 kg Roxanne Rowell MD Work Phone: [facility] 08-02-2023 10:34-0400 Diastolic blood pressure 62 mm[Hg] Roxanne Rowell MD Work Phone: [facility] 08-02-2023 10:34-0400 Systolic blood pressure 114 mm[Hg] Roxanne Rowell MD Work Phone: [facility] 07-23-2023 10:30-0400 Body weight 118.39 kg Roxanne Rowell MD Work Phone: [facility] 07-23-2023 10:30-0400 Diastolic blood pressure 70 mm[Hg] Roxanne Rowell MD Work Phone: [facility] 07-23-2023 10:30-0400 Systolic blood pressure 122 mm[Hg] Roxanne Rowell MD Work Phone: [facility] 07-21-2023 02:33-0400 Diastolic blood pressure 64 mm[Hg] [facility] 07-21-2023 02:33-0400 Heart rate 80 /min [facility] 07-21-2023 02:33-0400 Systolic blood pressure 129 mm[Hg] [facility] 07-21-2023 02:25-0400 Body temperature 98.1 [degF] [facility] 07-21-2023 02:20-0400 Body mass index (BMI) [Ratio] 40 kg/m2 [facility] 07-21-2023 02:20-0400 Body weight 119.38 kg [facility] 07-11-2023 11:43-0400 Body weight 117.48 kg Bettie Blum INSIDE SALES ENGINEER.CNM Work Phone: [facility] 07-11-2023 11:43-0400 Diastolic blood pressure 60 mm[Hg] Bettie Blum INSIDE SALES ENGINEER.CNM Work Phone: [facility] 07-11-2023 11:43-0400 Systolic blood pressure 100 mm[Hg] Bettie Blum INSIDE SALES ENGINEER.CNM Work Phone: [facility] 06-27-2023 10:10-0400 Body weight 117.03 kg Roxanne Rowell MD Work Phone: [facility] 06-27-2023 10:10-0400 Diastolic blood pressure 72 mm[Hg] Roxanne Rowell MD Work Phone: [facility] 06-27-2023 10:10-0400 Systolic blood pressure 114 mm[Hg] Roxanne Rowell MD Work Phone: [facility] 06-07-2023 13:48-0400 Body height 172.7 cm Ob Ultrasound Work Phone: [facility] 06-07-2023 13:48-0400 Body weight 117.94 kg Ob Ultrasound Work Phone: [facility] 06-03-2023 14:36-0400 Body temperature 97.8 [degF] Dr. Magnolia Chen Work Phone: [facility] 06-03-2023 14:36-0400 Diastolic blood pressure 76 mm[Hg] Dr. Magnolia Chen Work Phone: [facility] 06-03-2023 14:36-0400 Heart rate 74 /min Dr. Magnolai Chen Work Phone: [facility] 06-03-2023 14:36-0400 Respiratory rate 14 /min Dr. Magnolia Chen Work Phone: [facility] 06-03-2023 14:36-0400 SaO2% (BldA) [Mass fraction] 99 % Dr. Magnolia Chen Work Phone: [facility] 06-03-2023 14:36-0400 Systolic blood pressure 118 mm[Hg] Dr. Magnolia Chen Work Phone: [facility] 06-03-2023 11:27-0400 Body height 172.[address] Magnolia Chen Work Phone: [facility] 06-03-2023 11:27-0400 Body mass index (BMI) [Ratio] 39.2 kg/m2 Dr. Magnolia Chen Work Phone: [facility] 06-03-2023 11:27-0400 Body weight 117.[address] Magnolia Chen Work Phone: [facility] 05-04-2023 15:00-0400 Body height 172.[address] Magnolia Chen Work Phone: [facility] 05-04-2023 15:00-0400 Body mass index (BMI) [Ratio] 39.2 kg/m2 Dr. Magnolia Chen Work Phone: [facility] 05-04-2023 15:00-0400 Body temperature 98.6 [degF] Dr. Magnolia Chen Work Phone: [facility] 05-04-2023 15:00-0400 Body weight 117.[address] Magnolia Chen Work Phone: [facility] 05-04-2023 15:00-0400 Diastolic blood pressure 54 mm[Hg] Dr. Magnolia Chen Work Phone: [facility] 05-04-2023 15:00-0400 Heart rate 109 /min Dr. Magnolia Chen Work Phone: [facility] 05-04-2023 15:00-0400 Respiratory rate 18 /min Dr. Magnolia Chen Work Phone: [facility] 05-04-2023 15:00-0400 SaO2% (BldA) [Mass fraction] 97 % Dr. Magnolia Chen Work Phone: [facility] 05-04-2023 15:00-0400 Systolic blood pressure 114 mm[Hg] Dr. Magnolia Chen Work Phone: [facility] 04-14-2023 13:10-0400 Body mass index (BMI) [Ratio] 40 kg/m2 Dr. Magnolia Chen Work Phone: [facility] 04-14-2023 13:10-0400 Body temperature 97.2 [degF] Dr. Magnolia Chen Work Phone: [facility] 04-14-2023 13:10-0400 Body weight 119.[address] Magnolia Chen Work Phone: [facility] 04-14-2023 13:10-0400 Diastolic blood pressure 76 mm[Hg] Dr. Magnolia Chen Work Phone: [facility] 04-14-2023 13:10-0400 Heart rate 95 /min Dr. Magnolia Chen Work Phone: [facility] 04-14-2023 13:10-0400 SaO2% (BldA) [Mass fraction] 98 % Dr. Magnolia Chen Work Phone: [facility] 04-14-2023 13:10-0400 Systolic blood pressure 128 mm[Hg] Dr. Magnolia Chen Work Phone: [facility] 04-03-2023 11:41-0400 Body height 172.72 cm [facility] 04-03-2023 11:41-0400 Body mass index (BMI) [Ratio] 40.6 kg/m2 [facility] 04-03-2023 11:41-0400 Body temperature 97.8 [degF] [facility] 04-03-2023 11:41-0400 Body weight 121.19 kg [facility] 04-03-2023 11:41-0400 Diastolic blood pressure 83 mm[Hg] [facility] 04-03-2023 11:41-0400 Heart rate 90 /min [facility] 04-03-2023 11:41-0400 Respiratory rate 16 /min [facility] 04-03-2023 11:41-0400 SaO2% (BldA) [Mass fraction] 98 % [facility] 04-03-2023 11:41-0400 Systolic blood pressure 150 mm[Hg] [facility] 03-03-2023 22:47-0400 Diastolic blood pressure 70 mm[Hg] Dr. Magnolia Chen Work Phone: [facility] 03-03-2023 22:47-0400 Heart rate 80 /min Dr. Magnolia Chen Work Phone: [facility] 03-03-2023 22:47-0400 Respiratory rate 16 /min Dr. Magnolia Chen Work Phone: [facility] 03-03-2023 22:47-0400 SaO2% (BldA) [Mass fraction] 98 % Dr. Magnolia Chen Work Phone: [facility] 03-03-2023 22:47-0400 Systolic blood pressure 126 mm[Hg] Dr. Magnolia Chen Work Phone: [facility] 03-03-2023 20:48-0400 Body height 172.[address] Magnolia Chen Work Phone: [facility] 03-03-2023 20:48-0400 Body mass index (BMI) [Ratio] 41.3 kg/m2 Dr. Magnolia Chen Work Phone: [facility] 03-03-2023 20:48-0400 Body temperature 97.6 [degF] Dr. Magnolia Chen Work Phone: [facility] 03-03-2023 20:48-0400 Body weight 123.[address] Magnolia Chen Work Phone: [facility] 02-08-2023 13:34-0500 Body temperature 98.1 [degF] Jason Bettencourt MD Work Phone: [facility] 02-08-2023 13:34-0500 Body weight 122.38 kg Jason Bettencourt MD Work Phone: [facility] 02-08-2023 13:34-0500 Diastolic blood pressure 82 mm[Hg] Jason Bettencourt MD Work Phone: [facility] 02-08-2023 13:34-0500 Heart rate 69 /min Jason Bettencourt MD Work Phone: [facility] 02-08-2023 13:34-0500 Respiratory rate 18 /min Jason Bettencourt MD Work Phone: [facility] 02-08-2023 13:34-0500 SaO2% (BldA) [Mass fraction] 98 % Jason Bettencourt MD Work Phone: [facility] 02-08-2023 13:34-0500 Systolic blood pressure 112 mm[Hg] Jason Bettencourt MD Work Phone: [facility] 11-12-2022 14:15-0500 Body temperature 97.5 [degF] No Primary Care Physician [facility] 11-12-2022 14:15-0500 Diastolic blood pressure 58 mm[Hg] No Primary Care Physician [facility] 11-12-2022 14:15-0500 Heart rate 61 /min No Primary Care Physician [facility] 11-12-2022 14:15-0500 Respiratory rate 16 /min No Primary Care Physician [facility] 11-12-2022 14:15-0500 SaO2% (BldA) [Mass fraction] 98 % No Primary Care Physician [facility] 11-12-2022 14:15-0500 Systolic blood pressure 112 mm[Hg] No Primary Care Physician [facility] 11-12-2022 12:54-0500 Body height 172.72 cm No Primary Care Physician [facility] Work Phone: 11-12-2022 12:54-0500 Body mass index (BMI) [Ratio] 41.8 kg/m2 No Primary Care Physician [facility] 11-12-2022 12:54-0500 Body weight 125 kg No Primary Care Physician [facility] 11-08-2022 00:33-0500 Diastolic blood pressure 64 mm[Hg] No Primary Care Physician [facility] 11-08-2022 00:33-0500 Heart rate 78 /min No Primary Care Physician [facility] 11-08-2022 00:33-0500 Respiratory rate 18 /min No Primary Care Physician [facility] 11-08-2022 00:33-0500 SaO2% (BldA) [Mass fraction] 90 % No Primary Care Physician [facility] 11-08-2022 00:33-0500 Systolic blood pressure 110 mm[Hg] No Primary Care Physician [facility] 11-07-2022 21:12-0500 Body height 172.72 cm No Primary Care Physician [facility] Work Phone: 11-07-2022 21:12-0500 Body mass index (BMI) [Ratio] 42.5 kg/m2 No Primary Care Physician [facility] 11-07-2022 21:12-0500 Body temperature 97.9 [degF] No Primary Care Physician [facility] 11-07-2022 21:12-0500 Body weight 127 kg No Primary Care Physician [facility] 10-21-2022 19:56-0500 Body height 172.72 cm No Primary Care Physician [facility] Work Phone: 10-21-2022 19:56-0500 Body mass index (BMI) [Ratio] 42.5 kg/m2 No Primary Care Physician [facility] Work Phone: 10-21-2022 19:56-0500 Body temperature 97.6 [degF] No Primary Care Physician [facility] Work Phone: 10-21-2022 19:56-0500 Body weight 127 kg No Primary Care Physician [facility] Work Phone: 10-21-2022 19:56-0500 Diastolic blood pressure 88 mm[Hg] No Primary Care Physician [facility] Work Phone: 10-21-2022 19:56-0500 Heart rate 78 /min No Primary Care Physician [facility] Work Phone: 10-21-2022 19:56-0500 Respiratory rate 16 /min No Primary Care Physician [facility] Work Phone: 10-21-2022 19:56-0500 SaO2% (BldA) [Mass fraction] 98 % No Primary Care Physician [facility] Work Phone: 10-21-2022 19:56-0500 Systolic blood pressure 146 mm[Hg] No Primary Care Physician [facility] Work Phone: 2022 10:09-0500 Body mass index (BMI) [Ratio] 42.7 kg/m2 No Primary Care Physician [facility] Work Phone: 2022 10:09-0500 Body temperature 98 [degF] No Primary Care Physician [facility] Work Phone: 2022 10:09-0500 Body weight 127.45 kg No Primary Care Physician [facility] Work Phone: 2022 10:09-0500 Diastolic blood pressure 72 mm[Hg] No Primary Care Physician [facility] Work Phone: 2022 10:09-0500 Heart rate 82 /min No Primary Care Physician [facility] Work Phone: 2022 10:09-0500 Respiratory rate 16 /min No Primary Care Physician [facility] Work Phone: 2022 10:09-0500 SaO2% (BldA) [Mass fraction] 98 % No Primary Care Physician [facility] Work Phone: 2022 10:09-0500 Systolic blood pressure 106 mm[Hg] No Primary Care Physician [facility] Work Phone: 09-24-2022 10:39-0400 Body temperature 97.6 [degF] No Primary Care Physician [facility] Work Phone: 09-24-2022 10:39-0400 Diastolic blood pressure 74 mm[Hg] No Primary Care Physician [facility] Work Phone: 09-24-2022 10:39-0400 Heart rate 86 /min No Primary Care Physician [facility] Work Phone: 09-24-2022 10:39-0400 Respiratory rate 18 /min No Primary Care Physician [facility] Work Phone: 09-24-2022 10:39-0400 SaO2% (BldA) [Mass fraction] 97 % No Primary Care Physician [facility] Work Phone: 09-24-2022 10:39-0400 Systolic blood pressure 136 mm[Hg] No Primary Care Physician [facility] Work Phone: 09-24-2022 05:19-0400 Inhaled oxygen flow rate 2 L/min No Primary Care Physician [facility] Work Phone: 09-23-2022 09:44-0400 Body height 173 cm No Primary Care Physician [facility] Work Phone: 09-23-2022 09:44-0400 Body mass index (BMI) [Ratio] 44.4 kg/m2 No Primary Care Physician [facility] Work Phone: 09-23-2022 09:44-0400 Body weight 132.9 kg No Primary Care Physician [facility] Work Phone: 09-23-2022 06:43-0400 Body temperature 97.8 [degF] No Primary Care Physician [facility] Work Phone: 09-23-2022 06:43-0400 Diastolic blood pressure 68 mm[Hg] No Primary Care Physician [facility] Work Phone: 09-23-2022 06:43-0400 Heart rate 74 /min No Primary Care Physician [facility] Work Phone: 09-23-2022 06:43-0400 Respiratory rate 10 /min No Primary Care Physician [facility] Work Phone: 09-23-2022 06:43-0400 SaO2% (BldA) [Mass fraction] 100 % No Primary Care Physician [facility] Work Phone: 09-23-2022 06:43-0400 Systolic blood pressure 120 mm[Hg] No Primary Care Physician [facility] Work Phone: 09-23-2022 00:28-0400 Body height 172.72 cm No Primary Care Physician [facility] Work Phone: 09-23-2022 00:28-0400 Body mass index (BMI) [Ratio] 44.3 kg/m2 No Primary Care Physician [facility] Work Phone: 09-23-2022 00:28-0400 Body weight 132.2 kg No Primary Care Physician [facility] Work Phone: 03-14-2022 13:25-0400 Body temperature 97.8 [degF] [facility] Work Phone: 03-14-2022 13:25-0400 Diastolic blood pressure 58 mm[Hg] [facility] Work Phone: 03-14-2022 13:25-0400 Heart rate 87 /min [facility] Work Phone: 03-14-2022 13:25-0400 Respiratory rate 14 /min [facility] Work Phone: 03-14-2022 13:25-0400 SaO2% (BldA) [Mass fraction] 97 % [facility] Work Phone: 03-14-2022 13:25-0400 Systolic blood pressure 120 mm[Hg] [facility] Work Phone: 03-12-2022 11:36-0400 Body height 172.72 cm [facility] Work Phone: 03-12-2022 11:36-0400 Body mass index (BMI) [Ratio] 40.2 kg/m2 [facility] Work Phone: 03-12-2022 11:36-0400 Body weight 120 kg [facility] Work Phone: 03-06-2022 10:10-0400 Body height 172.72 cm [facility] Work Phone: 03-06-2022 10:10-0400 Body mass index (BMI) [Ratio] 40.4 kg/m2 [facility] Work Phone: 03-06-2022 10:10-0400 Body weight 120.8 kg [facility] Work Phone: 03-06-2022 10:09-0400 Body temperature 98.4 [degF] [facility] Work Phone: 03-06-2022 09:00-0400 Diastolic blood pressure 71 mm[Hg] [facility] Work Phone: 03-06-2022 09:00-0400 Heart rate 89 /min [facility] Work Phone: 03-06-2022 09:00-0400 Systolic blood pressure 126 mm[Hg] [facility] Work Phone: 02-23-2022 13:35-0400 Body height 172.72 cm [facility] Work Phone: 02-23-2022 13:35-0400 Body mass index (BMI) [Ratio] 39.5 kg/m2 [facility] Work Phone: 02-23-2022 13:35-0400 Body weight 117.93 kg [facility] Work Phone: 02-23-2022 13:19-0400 Heart rate 87 /min [facility] Work Phone: 02-23-2022 13:19-0400 SaO2% (BldA) [Mass fraction] 99 % [facility] Work Phone: 02-23-2022 13:18-0400 Body temperature 97.9 [degF] [facility] Work Phone: 02-23-2022 13:17-0400 Diastolic blood pressure 56 mm[Hg] [facility] Work Phone: 02-23-2022 13:17-0400 Systolic blood pressure 119 mm[Hg] [facility] Work Phone: 01-18-2022 18:50-0500 Diastolic blood pressure 73 mm[Hg] [facility] Work Phone: 01-18-2022 18:50-0500 Heart rate 74 /min [facility] Work Phone: 01-18-2022 18:50-0500 Systolic blood pressure 132 mm[Hg] [facility] Work Phone: 01-18-2022 18:20-0500 Body temperature 97.8 [degF] [facility] Work Phone: 01-18-2022 18:20-0500 SaO2% (BldA) [Mass fraction] 97 % [facility] Work Phone: 01-18-2022 16:22-0500 Body mass index (BMI) [Ratio] 38.9 kg/m2 [facility] Work Phone: 01-18-2022 16:22-0500 Body weight 116 kg [facility] Work Phone: 12-28-2021 19:43-0500 Body temperature 98.1 [degF] [facility] Work Phone: 12-28-2021 19:43-0500 Diastolic blood pressure 63 mm[Hg] [facility] Work Phone: 12-28-2021 19:43-0500 Heart rate 85 /min [facility] Work Phone: 12-28-2021 19:43-0500 SaO2% (BldA) [Mass fraction] 94 % [facility] Work Phone: 12-28-2021 19:43-0500 Systolic blood pressure 130 mm[Hg] [facility] Work Phone: 12-28-2021 19:37-0500 Body mass index (BMI) [Ratio] 39.3 kg/m2 [facility] Work Phone: 12-28-2021 19:37-0500 Body weight 117.38 kg [facility] Work Phone: 12-10-2021 18:22-0500 Body temperature 98.6 [degF] [facility] Work Phone: 12-10-2021 18:22-0500 Diastolic blood pressure 64 mm[Hg] [facility] Work Phone: 12-10-2021 18:22-0500 Heart rate 88 /min [facility] Work Phone: 12-10-2021 18:22-0500 Systolic blood pressure 118 mm[Hg] [facility] Work Phone: 12-10-2021 15:25-0500 Body mass index (BMI) [Ratio] 38.3 kg/m2 [facility] Work Phone: 12-10-2021 15:25-0500 Body weight 114.4 kg [facility] Work Phone: 12-10-2021 15:18-0500 SaO2% (BldA) [Mass fraction] 97 % [facility] Work Phone: 11-19-2021 23:04-0500 Body temperature 97.8 [degF] [facility] Work Phone: 11-19-2021 23:04-0500 Diastolic blood pressure 55 mm[Hg] [facility] Work Phone: 11-19-2021 23:04-0500 Heart rate 72 /min [facility] Work Phone: 11-19-2021 23:04-0500 SaO2% (BldA) [Mass fraction] 97 % [facility] Work Phone: 11-19-2021 23:04-0500 Systolic blood pressure 116 mm[Hg] [facility] Work Phone: 11-19-2021 23:00-0500 Body mass index (BMI) [Ratio] 37.5 kg/m2 [facility] Work Phone: 11-19-2021 23:00-0500 Body weight 112.03 kg [facility] Work Phone: Encounters Encounter Date Encounter Type Care Provider Facility Start: 07-27-2025 End: 07-27-2025 Patient encounter procedure Funmilayo Bernardo MD Work Phone: OB/Gynecology Comment on above: 36 weeks gestation o f (HCC) (Primary Dx); Obesity affecting in third trimester, unspecified obesity type (HCC) Start: 07-27-2025 End: 07-27-2025 ambulatory FUNMILAYO BERNARDO Facility:[facility] Start: 07-22-2025 End: 07-22-2025 ambulatory Nighat Munoz [employer]-C Work Phone: -[facility] Start: 07-22-2025 End: 07-22-2025 Patient encounter procedure Bettie AUGUSTE -[facility] Work Phone: Start: 07-20-2025 End: 07-20-2025 Patient encounter procedure Epifanio Sanchez MD Work Phone: OB/Gynecology Comment on above: Obesity affecting pr egnancy in third trimester, unspecified obesity type (HCC) (Primary Dx) Start: 07-20-2025 End: 07-20-2025 ambulatory HARRIET MALLORY Facility:[facility] Start: 07-20-2025 End: 07-20-2025 ambulatory KAYLA FUENTESMARCO ANTONIOChristal WAGGONERREID Facility:[facility] Start: 07-15-2025 End: 07-16-2025 Telephone encounter Epifanio Sanchez MD Work Phone: OB/Gynecology Comment on above: Results Start: 07-13-2025 End: 07-13-2025 Patient encounter procedure Epifanio Sanchez MD Work Phone: OB/Gynecology Comment on above: 34 weeks gestation o f (HCC) (Primary Dx); UTI (urinary tract infection) in , antepartum (HCC); Obesity affecting in third trimester, unspecified obesity type (HCC) Start: 07-13-2025 End: 07-13-2025 ambulatory KAYLA REID Facility:[facility] Start: 07-06-2025 End: 07-06-2025 ambulatory KAYLA VINCE REID Facility:[facility] Start: 07-02-2025 End: 07-02-2025 Patient encounter [...] Start: 07-02-2025 End: 07-02-2025 ambulatory NOAM WYMAN Facility:[facility] Start: 06-21-2025 End: 06-22-2025 Patient encounter procedure Bettie Blum CN -[facility] Work Phone: Start: 06-21-2025 End: 06-21-2025 [...] Start: 06-16-2025 End: 06-16-2025 Patient encounter procedure Kayla Reid MD Work Phone: OB/Gynecology Comment on above: Supervision of high risk in third trimester (HCC) (Primary Dx); Anemia complicating , third trimester (HCC); Obesity affecting in third trimester, unspecified obesity type (HCC); Hypothyroidism affecting in second trimester (HCC); Decreased movements in third trimester, single or unspecified fetus (HCC); 30 weeks gestation of (HCC) Start: 06-16-2025 End: 06-16-2025 ambulatory KAYLA REID Facility:[facility] Start: 06-08-2025 End: 06-08-2025 ambulatory JUDIT PIMENTEL Facility:[facility] Start: 06-07-2025 End: 06-07-2025 Telephone encounter Nurse Bakeshop Cleaner Raeann Carranza Work Phone: Obstetrics/Gynecology Comment on above: PRAF Start: 06-03-2025 End: 06-03-2025 Patient encounter procedure Epifanio Sanchez MD Work Phone: OB/Gynecology Comment on above: Obesity affecting pr egnancy in third trimester, unspecified obesity type (HCC) (Primary Dx); Pyelonephritis complicating , antepartum (HCC); Hypothyroidism affecting in second trimester (HCC); Anemia complicating , third trimester (HCC); 28 weeks gestation of (HCC) Start: 06-03-2025 End: 06-03-2025 ambulatory EPIFANIO SANCHEZ Facility:[facility] Start: 05-21-2025 End: 05-21-2025 ambulatory Judit Pimentel APRN.CNP Work Phone: OB/Gynecology Comment on above: Work exemption Start: 05-17-2025 End: 05-17-2025 Telemedicine consultation with patient Harriet Mallory MD Work Phone: Endocrinology Start: 05-17-2025 End: 05-17-2025 ambulatory Harriet Mallory MD Work Phone: Endocrinology Comment on above: Hypothyroidism in pr egnancy, antepartum, second trimester (HCC) (Primary Dx); Elevated TSH; 24 weeks gestation of (HCC) Start: 05-07-2025 End: 05-07-2025 Follow-up encounter Judit Pimentel APRN.CNP Work Phone: OB/Gynecology Start: 05-06-2025 End: 05-06-2025 Patient encounter procedure Judit Pimentel APRN.CNP Work Phone: OB/Gynecology Comment on above: Encounter [...] Start: 05-06-2025 End: 05-06-2025 ambulatory JUDIT PIMENTEL Facility:[facility] Start: 04-28-2025 End: 04-28-2025 Follow-up encounter Aster Peralta DO Work Phone: [facility] Obstetrics & Gynecology Start: 04-24-2025 End: 04-28-2025 Evaluation and management of inpatient RADHA CAMPBELL Facility:[facility] Start: 04-16-2025 End: 06-16-2025 Follow-up encounter Nighat Maloney APRN.CNM Work Phone: OB/Gynecology Start: 04-14-2025 End: 04-14-2025 Patient encounter procedure Nighat Maloney APRN.CNM Work Phone: OB/Gynecology Comment on above: 21 weeks gestation o f (HCC) (Primary Dx); Supervision of high risk in second trimester (HCC); Pyelonephritis complicating , antepartum (HCC); Hypothyroidism affecting in second trimester (HCC) Start: 04-14-2025 End: 04-14-2025 ambulatory NIGHAT MALONEY Facility:[facility] Start: 04-09-2025 End: 04-11-2025 [facility] Start: 04-09-2025 End: 06-09-2025 Follow-up encounter Judit Pimentel APRN.CNP Work Phone: OB/Gynecology Start: 04-08-2025 End: 04-08-2025 [facility] NIGHAT MALONEY Facility:[facility] Start: 04-08-2025 End: 04-08-2025 Patient encounter procedure Judit Pimentel APRN.CNP Work Phone: OB/Gynecology Comment on above: Supervision [...] gestation of (HCC) Start: 04-08-2025 End: 04-08-2025 ambulatory JUDIT PIMENTEL Facility:[facility] Start: 03-16-2025 End: 03-16-2025 [facility] NIGHATSUNDEEP MALONEY Facility:[facility] Start: 03-16-2025 End: 03-16-2025 Patient encounter [...] , antepartum (HCC) Start: 02-16-2025 End: 02-16-2025 ambulatory JDUIT PMIENTEL Facility:[facility] Start: 02-16-2025 End: 02-16-2025 Patient encounter procedure Whi Tech 2 [employer]akes[employer] [facility]aternal [facility] Comment on above: Encounter for elmer sinclair screening for malformation using ultrasound (Primary Dx); [...] Pickens RN Maternal Medicine Comment on above: Patient Access Registrar - O ther (PRAF) Start: 01-21-2025 End: [facility]-21-[facility]25 [facility] Start: 01-21-2025 End: 01-21-2025 Patient encounter procedure Juditcarolyn Marquezmaynor MCBRIDESLOT FLOOR ATTENDANT Work Phone: OB/Gynecology Comment on above: Encounter [...] Dizziness Start: 01-04-2025 End: 01-04-2025 Telephone encounter Roxanne Rowell MD Work Phone: OB/Gynecology Comment on above: Appointment Start: 12-23-2024 End: 12-23-2024 ambulatory BETTIE BLUM Facility:[facility] Start: 12-23-2024 End: 12-23-2024 Patient encounter procedure Bettie Blum APRN.CNM Work Phone: OB/Gynecology Comment on above: Maternal obesity syn drome in third trimester (Primary Dx); BMI 40.0-44.9, adult (HCC); History of PCOS Start: 12-23-2024 End: 12-23-2024 ambulatory [facility] Facility:[facility] Start: 12-16-2024 End: 12-16-2024 [facility] Facility:[facility] Start: 11-30-2024 End: 11-30-2024 Emergency department patient visit Darionzaire Vega Facility:[facility] Start: 11-30-2024 End: 11-30-2024 Patient encounter procedure Jason Bettencourt MD Work Phone: [facility] Comment on above: Urinary frequency (P rimary Dx); Acute right flank pain; Dizziness Start: 11-30-2024 End: 11-30-2024 [facility] Facility:[facility] Start: 08-18-2024 End: 08-18-2024 [facility] Facility:[facility] Start: 08-18-2024 End: 08-18-2024 Patient encounter procedure Nighat Qiu 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 Work Phone: [facility] Comment on above: Allergic reaction, i nitial encounter (Primary Dx) Start: 03-25-2024 End: 03-25-2024 Subsequent hospital visit by physician Xr [facility] Work Phone: Radiology Comment on above: URI, acute [J06.9] Start: 03-25-2024 End: 03-25-2024 Patient encounter procedure Nighat Qiu 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 Work Phone: [facility] Comment on above: URI, acute (Primary Dx); Acute cough Start: 10-15-2023 Telephone encounter Nighat mejia APRN.CNM Work Phone: OB/Gynecology Comment on above: Patient Update Start: 10-15-2023 End: 10-17-2023 Evaluation and management of inpatient [facility] Work Phone: Start: 10-14-2023 End: 10-14-2023 Patient encounter procedure Roxanne Rowell MD Work Phone: OB/Gynecology Comment on above: Supervision of high risk in third trimester (Primary Dx); Maternal obesity syndrome in third trimester; BMI 40.0-44.9, adult (HCC); UTI (urinary tract infection) during , third trimester Start: 10-10-2023 End: 10-10-2023 ambulatory [facility] Work Phone: Start: 10-10-2023 End: 10-10-2023 Patient encounter procedure [facility] Work Phone: Start: 10-07-2023 End: 10-07-2023 Patient encounter procedure Roxanne Rowell MD Work Phone: OB/Gynecology Comment on [...] Start: 10-01-2023 End: 10-01-2023 Patient encounter procedure Roxanne Rowell MD Work Phone: OB/Gynecology Comment on above: Obesity affecting pr egnancy, antepartum, unspecified obesity type (Primary Dx); Supervision of high risk in third trimester; UTI (urinary tract infection) during , third trimester; 35 weeks gestation of Start: 09-27-2023 Telephone encounter Roxanne Rowell MD Work Phone: OB/Gynecology Comment on above: breast pump Start: 09-23-2023 End: 09-23-2023 Patient encounter procedure Roxanne Rowell MD Work Phone: OB/Gynecology Comment on above: 34 weeks gestation o f (Primary Dx); Obesity affecting , antepartum, unspecified obesity type; Supervision of high risk in third trimester; UTI (urinary tract infection) during , third trimester Start: 09-22-2023 End: 09-22-2023 ambulatory [facility] Work Phone: Start: 09-22-2023 End: 09-22-2023 Patient encounter procedure [facility] Work Phone: Start: 09-17-2023 End: 09-17-2023 Patient encounter procedure Nst [facility] Work Phone: OB/Gynecology Comment on above: Maternal obesity syn drome in third trimester; Supervision of high risk in third trimester Start: 09-13-2023 ambulatory Roxanne bhardwaj MD Work Phone: OB/Gynecology Comment on above: Question regarding U R[employer] USE ON Start: 09-11-2023 End: 09-11-2023 Patient encounter procedure Roxanne Rowell MD Work Phone: OB/Gynecology Comment on above: Maternal obesity syn drome in third trimester (Primary Dx); Supervision of high risk in third trimester; 33 weeks gestation of Encounter for ultras ound to check growth (Primary Dx); Supervision of high risk in second trimester; Maternal obesity syndrome in third trimester; BMI 39.0-39.9,adult; 33 weeks gestation of Start: 08-20-2023 Telephone encounter Roxanne Rowell MD Work Phone: OB/Gynecology Comment on above: Results Start: 08-17-2023 End: 08-17-2023 ambulatory [facility] Work Phone: Start: 08-17-2023 End: 08-17-2023 Patient encounter procedure [facility] Work Phone: Start: 08-09-2023 Telephone encounter Patient Access Registrar RN Obstetrics/Gynecology Comment on above: THIRD PRAF FORM Start: 08-04-2023 ambulatory Roxanne bhardwaj MD Work Phone: OB/Gynecology Comment on above: Work Start: 08-02-2023 End: 08-02-2023 Patient encounter procedure Roxanne Rowell MD Work Phone: OB/Gynecology Comment on above: Supervision of high risk in second trimester (Primary Dx); 27 weeks gestation of ; Need for vaccination; Maternal obesity syndrome in third trimester; BMI 39.0-39.9,adult Start: 07-23-2023 End: 07-23-2023 Patient encounter procedure Roxanne Rowell MD Work Phone: OB/Gynecology Comment on above: 25 weeks gestation o f (Primary Dx); Supervision of high risk in second trimester; Generalized pruritus Start: 07-21-2023 End: 07-21-2023 Patient encounter procedure [facility] Work Phone: Start: 07-17-2023 Telephone encounter Roxanne Rowell MD Work Phone: OB/Gynecology Start: 07-16-2023 Telephone encounter Bettie middleton INSIDE SALES ENGINEER.CNM Work Phone: OB/Gynecology Comment on above: Results Start: 07-11-2023 Telephone encounter Bettie middleton INSIDE SALES ENGINEER.CNM Work Phone: OB/Gynecology Comment on above: Results Start: 07-11-2023 End: 07-11-2023 Patient encounter procedure Bettie Blum INSIDE SALES ENGINEER.CNM Work Phone: OB/Gynecology Comment on above: 24 weeks gestation o f (Primary Dx); Supervision of other high risk pregnancies, first trimester; Vaginal burning; Vaginal discharge during in second trimester; Pruritus; Gestational proteinuria in second trimester Start: 07-10-2023 ambulatory Roxanne bhardwaj MD Work Phone: OB/Gynecology Comment on above: Overall uncomfortabl e Start: 06-27-2023 End: 06-27-2023 Patient encounter procedure Roxanne Rowell MD Work Phone: OB/Gynecology Comment on above: Supervision of high risk in second trimester (Primary Dx); 22 weeks gestation of ; Leg cramps in Start: 06-07-2023 End: 06-07-2023 Patient encounter procedure Bakeshop Cleaner [facility] Work Phone: OB/Gynecology Comment on above: Encounter for anatomic survey (Primary Dx); Supervision of other high risk pregnancies, first trimester; 13 weeks gestation of ; Obesity affecting in second trimester, unspecified obesity type Start: 06-03-2023 End: 06-03-2023 Emergency department patient [facility] Start: 05-30-2023 ambulatory Roxanne bhardwaj MD Work Phone: OB/Gynecology Comment on above: [place] Start: 05-04-2023 End: 05-04-2023 Emergency department patient visit Dr. Magnolia Chen [facility] Start: 04-27-2023 ambulatory Roxanne bhardwaj MD Work Phone: OB/Gynecology Comment on above: UTI s Start: 04-14-2023 End: 04-14-[address] Magnolia Chen Work Phone: [facility] Start: 04-03-2023 Telephone encounter Roxanne Rowell MD Work Phone: Obstetrics/Gynecology Comment on above: Forms (praf) Start: 04-03-2023 End: 04-03-2023 [facility] Start: 04-01-2023 End: 04-01-2023 Patient encounter procedure Roxanne Rowell MD Work Phone: OB/Gynecology Comment on above: with incon clusive viability, single or unspecified fetus (Primary Dx); Supervision of other high risk pregnancies, first trimester; BMI 40.0-44.9, adult (HCC) Start: 04-01-2023 Telephone encounter Roxanne Rowell MD Work Phone: OB/Gynecology Comment on above: Insurance Authorizat ion Start: 03-25-2023 Patient requested procedure Roxanne Rowell MD Work Phone: [facility] Work Phone: Start: 03-11-2023 End: 03-11-2023 ambulatory [facility] Work Phone: Start: 03-11-2023 End: 03-11-2023 Patient encounter procedure [facility], 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 Magnolia Chen Work Phone: [facility]Emergency Department Start: 02-08-2023 End: 02-08-2023 Patient encounter procedure Jason Bettencourt MD Work Phone: [facility] Comment on above: Gastroenteritis (Aracelis maurer Dx) Start: 11-12-2022 Non-patient / Non-visit No Aracelis maurer Care Physician [facility] Start: 11-12-2022 End: 11-12-2022 Admission to same day surgery center No Primary Care Physician [facility]Endoscopy Start: 11-12-2022 End: 11-12-2022 ambulatory No Primary Care Physician [facility] Work Phone: Start: 11-07-2022 End: 11-08-2022 Emergency department patient visit No Primary Care Physician [facility]Emergency [facility] Start: 11-02-2022 End: 11-02-2022 Patient encounter procedure No Primary Care Physician [facility] Start: 10-29-2022 End: 10-29-2022 Patient encounter procedure No Primary Care Physician [facility] Start: 10-21-2022 End: 10-21-2022 Emergency department patient visit No Primary Care Physician [facility] Start: 2022 End: 2022 ambulatory No Primary Care Physician [facility] Work Phone: Start: 2022 End: 2022 Patient encounter procedure No Primary Care Physician [facility] Start: 10-05-2022 End: 10-05-2022 ambulatory No Primary Care Physician [facility] Work Phone: Start: 10-05-2022 End: 10-05-2022 Patient encounter procedure No Primary Care Physician [facility] Start: 10-04-2022 End: 10-04-2022 ambulatory No Primary Care Physician [facility] Work Phone: Start: 10-04-2022 End: 10-04-2022 Patient encounter procedure No Primary Care Physician [facility] Start: 10-01-2022 End: 10-01-2022 Patient encounter procedure No Primary Care Physician [facility] Start: 09-24-2022 Non-patient / Non-visit No Aracelis maurer Care Physician [facility] Start: 09-23-2022 End: 09-24-2022 Evaluation and management of inpatient No Primary Care Physician [facility] 3 Start: 09-23-2022 Non-patient / Non-visit No Aracelis maurer Care Physician [facility] Start: 03-12-2022 End: 03-14-2022 Evaluation and management of inpatient [facility] Start: 03-06-2022 End: 03-06-2022 Patient encounter procedure [facility], Outpatients Start: 02-23-2022 End: 02-23-2022 Patient encounter procedure [facility], Outpatients Start: 02-19-2022 End: 02-19-2022 Patient encounter procedure [facility], Specimen Start: 01-25-2022 End: 01-25-2022 Patient encounter procedure [facility], Christine 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 Start: 01-18-2022 End: 01-18-2022 [facility] Start: 12-28-2021 End: 12-28-2021 [facility] Start: 12-26-2021 End: 12-26-2021 Patient encounter procedure [facility], 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 Start: 12-10-2021 End: 12-10-2021 Patient encounter procedure [facility], Outpatients Start: 11-19-2021 End: 11-20-2021 Patient encounter procedure [facility], Outpatients Start: 03-21-2021 End: 03-21-2021 ambulatory LUZ MARIA CANCINO [facility] Start: 03-12-2021 End: 03-13-2021 Emergency department patient visit BLOSSOM CLEMENTS [facility] Start: 07-15-2018 End: 07-15-2018 Emergency department patient visit Suhas Bojorquez Facility:[place] Start: 02-12-2018 End: 02-12-2018 Emergency department patient visit Shivani Rowell Facility:[facility] Start: 07-29-2017 End: 07-29-2017 Ambulatory SHIVANI ROWELL [facility] Procedures Date Procedure Procedure Detail Performing Clinician Start: 07-27-2025 Urnls dip stick/tablet rgnt non-auto w/o micrscp Funmilayo Bernardo MD Work Phone: Start: 07-22-2025 Measurement of pH in vaginal fluid specimen using nitrazine yellow for detection of rupture of amniotic membrane Nighat Munoz [employer] MANAGER-C Work Phone: Comment on above: Amniotic fluid not present indicates No Rupture of FetalMembranes at time of specimen collection. Start: 07-02-2025 Us preg uterus after 1st trimest 1/ gestation Epifanio Sanchez MD Work Phone: Start: 06-21-2025 Urnls dip stick/tablet rgnt auto w/o microscopy Noam Wyman MD Work Phone: Start: 04-28-2025 Antibody screen TAMMIE VASQUEZ Comment on above: Order Comment: Specimen Type: BLOOD SPEC IMENOrdering Facility: [facility] Address: [address] [place] [id number] Performed By: #### T SPN ####[facility] BLOOD BANKCLIA [id number] [place] [address] [place] Start: 04-25-2025 Antibody screen TAMMIE VASQUEZ Comment on above: Order Comment: Specimen Type: BLOOD SPEC IMENOrdering Facility: [facility] Address: [address] [place] [address] Performed By: #### T SPN ####[facility] BLOOD BANKCLIA [id number] [place] [address] [facility] Start: 04-08-2025 Urnls dip stick/tablet rgnt auto w/o microscopy Noam Wyman MD Work Phone: Start: 04-08-2025 Us preg uterus after 1st trimest / gestation Juditcarolyn Marquezmaynor 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 Work Phone: Start: 02-16-2025 Antibody screen NIGHAT MALONEY Comment on above: Order Comment: Specimen Type: BLOOD SPEC IMEN Ordering Facility: [facility] Address: [address] [place] [address] Performed By: #### 2 [id number] #### [facility] CLIA [id number] [address] [place] [address] Start: 02-16-2025 Urnls dip stick/tablet rgnt auto w/o microscopy Nighat Maloney INSIDE SALES ENGINEER.CNM Work Phone: Start: 02-16-2025 Us preg uterus after 1st trimest / gestation Judit Pimentel 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 Work Phone: Start: 01-21-2025 Urnls dip stick/tablet rgnt auto w/o microscopy Judit Pimentel APRN.SLOT FLOOR ATTENDANT Work Phone: Start: 01-21-2025 Us uterus limited 1/> fetuses Judit Pimentel 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 Work Phone: Start: 11-30-2024 Urnls dip stick/tablet rgnt auto w/o microscopy Jason Bettencourt MD Work Phone: Start: 03-25-2024 Radiologic exam chest 2 views Nighat gomez 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 Work Phone: Start: 03-25-2024 STREP A MOLECULAR (POC) [facility] Provider Start: 10-14-2023 URINE OB DIP B/O Roxanne Rowell MD Work Phone: Start: 10-07-2023 URINE OB DIP B/O Roxanne Rowell MD Work Phone: Start: 10-04-2023 URINE OB DIP B/O Nighat Maloney INSIDE SALES ENGINEER.CNM Work Phone: Start: 09-23-2023 URINE OB DIP B/O Roxanne Rowell MD Work Phone: Start: 09-11-2023 URINE OB DIP B/O Roxanne Rowell MD Work Phone: Start: 09-11-2023 Us preg uterus after 1st trimest 12/02 gestation Roxanne Rowell MD Work Phone: Start: 08-17-2023 Urine culture Start: 08-02-2023 URINE OB DIP B/O Roxanne Rowell MD Work Phone: Start: 07-23-2023 URINE OB DIP B/O Roxanne Rowell MD Work Phone: Start: 07-11-2023 Urnls dip stick/tablet rgnt auto w/o microscopy Bettie Blum INSIDE SALES ENGINEER.CNM Work Phone: Start: 07-11-2023 URINE OB DIP B/O Bettie Blum INSIDE SALES ENGINEER.CNM Work Phone: Start: 06-27-2023 URINE OB DIP B/O Roxanne Rowell MD Work Phone: Start: 06-07-2023 Us preg uterus after 1st trimest 12/02 gestation Roxanne Rowell MD Work Phone: Start: 05-04-2023 CT of lumbar spine Dr. Magnolia Chen Work Phone: Start: 05-04-2023 Computed tomography angiography of abdominal and/or pelvic blood vessel Dr. Magnolia Chen Work Phone: Start: 04-03-[address] Magnolia Chen Work Phone: Start: 04-01-2023 Us uterus limited 1/> fetuses Roxanne Rowell MD Work Phone: Start: 03-11-2023 Urine [...] Start: 11-20-2021 Urine culture Start: 03-13-2021 Urinalysis BLOSSOM CLEMENTS Comment on above: Result Comment: URINALYSIS Performed By: #### [id number] #### [facility],[address] [place] [address] History of cholecystectomy S/P cholecyste ctomy No [...] DTaP,Tdap,Td Vaccine (9 - Td or Tdap) [facility] Start: 08-02-2033 Urine microalbumin profile [facility] Start: 01-21-2028 Screening for malignant neoplasm of cervix Cervical Cancer Screening [facility] Start: 08-03-2025 End: 08-03-2025 Patient encounter procedure OB/Gynecology Comment on above: NST / OB Start: 08-02-2025 Influenza vaccination [facility] Start: 07-30-2025 End: 07-30-2025 Patient encounter procedure 07/30/2025 9:00 AM EDT Routine Office Visit [facility] [address] [place] [address] [facility] Comment on above: Growth Start: 07-27-2025 End: 07-27-2025 Patient encounter procedure OB/Gynecology Comment on above: nst /ob OB Start: 07-22-2025 Nonstress test [facility] Start: 07-22-2025 Obstetric monitoring [facility] Start: 07-22-2025 Vital signs measurements [facility] Start: 07-22-2025 [facility] Start: 07-20-2025 End: 07-20-2025 Patient encounter procedure [...] third trimester (HCC) Expected: 07/02/2025, Expires: 07/02/2026 [facility] Work Phone: Comment on above: Expected: 07/02/2025, Expires: Start: 07-02-2025 End: 07-02-2025 Patient encounter procedure [facility] Comment on above: Growth Growth/OB Start: 06-22-2025 Vital signs measurements [facility] Start: 06-22-2025 [facility] Start: 06-22-2025 Assessment of risk of venous thromboembolism [facility] Start: 06-22-2025 External monitor surveillance [facility] Start: 06-22-2025 Medication education [facility] Start: 06-22-2025 Patient discharge [facility] Start: 06-21-2025 End: 06-22-2025 [facility] Start: 06-21-2025 Application of intermittent pneumatic compression device [facility] Start: 06-21-2025 Admission procedure [facility] Start: 06-16-2025 End: 06-16-2025 Patient encounter procedure 06/16/2025 9:40 AM EDT Routine Office Visit OB/Gynecology [address] [place] [address] Kayla Vaz MD [address] [place] [address] OB OB/Gynecology Comment on above: OB Start: 06-14-2025 End: 06-14-2025 Follow-up encounter 06/14/2025 11:00 AM EDT [facility] [address] [place] [address] Harriet Mallory MD [address] [place] [address] 4 week follow up/hypothyroid during Endocrinology Comment on above: 4 week follow up/hypothyroid during preg lety Start: 06-11-2025 End: 09-10-2025 Thyrotropin [Units/volume] in Serum or Plasma THYROID STIMULATING HORMONE Lab Routine Elevated TSH 24 weeks gestation of (HCC) Expected: 06/11/2025, Expires: 09/10/2025 [facility] Work Phone: Comment on above: Expected: 06/11/2025, Expires: Start: 06-11-2025 End: 09-10-2025 Thyroxine (T4) free [Mass/volume] in Serum or Plasma T4 FREE/FREE THYROXINE Lab Routine Elevated TSH 24 weeks gestation of (HCC) Expected: 06/11/2025, Expires: 09/10/2025 [facility] Comment on above: Expected: 06/11/2025, Expires: Start: 06-11-2025 End: 06-11-2025 ambulatory 06/11/2025 10:00 AM EDT Results Only Christine Chinchillawn [facility] [address] [place] [address] Christine [place] [facility] Start: 06-08-2025 End: 06-08-2025 ambulatory 06/08/2025 9:45 AM EDT Results Only Christine Chinchillawn [facility] [address] [place] [address] Elevated glucose tolerance test [R73.09 [facility] [place] Comment on above: Elevated glucose tolerance test [R73.09 Start: 06-03-2025 End: 06-03-2026 OBSTETRIC ULTRASOUND WHI OBSTETRIC ULTRASOUND WHI Anc Imaging Routine Obesity affecting in third trimester, unspecified obesity type (HCC) Expected: 06/03/2025, Expires: 06/03/2026 [facility] Work Phone: Comment on above: Expected: 06/03/2025, Expires: Start: 06-03-2025 End: 06-03-2025 Patient encounter procedure 06/03/2025 10:20 AM EDT Routine Office Visit OB/Gynecology [address] [place] [address] Epifanio Sanchez MD [address] [place] [address] OB OB/Gynecology Comment on above: OB Start: 06-03-2025 End: 06-03-2025 ambulatory 06/03/2025 10:00 AM EDT Results Only Christine Chinchillawn [facility] [address] [place] [address] Glucose Test [facility] Comment on above: Glucose Test Start: 05-06-2025 End: 08-05-2025 ANEMIA REFLEX PANEL ANEMIA REFLEX PANEL Lab Routine Encounter for supervision of high risk in second trimester, antepartum (HCC) Expected: 05/06/2025, Expires: 08/05/2025 [facility] Comment on above: Expected: 05/06/2025, Expires: Start: 05-06-2025 End: 08-05-2025 BILE ACIDS, TOTAL [facility] Comment on above: Expected: 05/06/2025, Expires: Start: 05-06-2025 End: 05-06-2026 GESTATIONAL GLUCOSE SCREEN, 1-HOUR, 50 GRAM, NON-FASTING GESTATIONAL GLUCOSE SCREEN, 1-HOUR, 50 GRAM, NON-FASTING Lab Routine Screening for diabetes mellitus Expected: 05/06/2025, Expires: 05/06/2026 [facility] Comment on above: Expected: 05/06/2025, Expires: Start: 05-06-2025 End: 05-06-2026 SYPHILIS TREPONEMAL W/REFLEX SYPHILIS TREPONEMAL W/REFLEX Lab Routine Encounter for supervision of high risk in second trimester, antepartum (HCC) Expected: 05/06/2025, Expires: 05/06/2026 [facility] Comment on above: Expected: 05/06/2025, Expires: Start: 05-06-2025 End: 08-05-2025 Thyrotropin [Units/volume] in Serum or Plasma [facility] Work Phone: Comment on above: Expected: 05/06/2025, Expires: Start: 05-06-2025 End: 08-05-2025 Thyroxine (T4) free [Mass/volume] in Serum or Plasma [facility] Comment on above: Expected: 05/06/2025, Expires: Start: 05-06-2025 End: 05-06-2025 Patient encounter procedure 05/06/2025 8:00 AM EDT Routine Office Visit OB/Gynecology [address] [place] [address] Judit Pimentel APRN.SLOT FLOOR ATTENDANT [address] [place] [address] 4week ob OB/Gynecology Comment on above: 4week ob Start: 04-08-2025 End: 04-08-2025 Patient encounter procedure [facility] Comment on above: Anatomy Anatomy/OB Start: 03-16-2025 End: 06-15-2025 Thyrotropin [Units/volume] in Serum or Plasma THYROID STIMULATING HORMONE Lab Routine Encounter for supervision of high risk in first trimester, antepartum (HCC) Hypothyroidism affecting in first trimester (HCC) Expected: 03/16/2025, Expires: 06/15/2025 [facility] Work Phone: Comment on above: Expected: 03/16/2025, Expires: Start: 03-16-2025 End: 06-15-2025 Thyroxine (T4) free [Mass/volume] in Serum or Plasma T4 FREE/FREE THYROXINE Lab Routine Encounter for supervision of high risk in first trimester, antepartum (HCC) Hypothyroidism affecting in first trimester (HCC) Expected: 03/16/2025, Expires: 06/15/2025 [facility] Comment on above: Expected: 03/16/2025, Expires: Start: 03-16-2025 End: 03-16-2025 Patient encounter procedure 03/16/2025 8:00 AM EDT Routine Office Visit OB/Gynecology [address] [place] [address] Nighat Maloney APRN.CNM [address] [place] [address] OB OB/Gynecology Comment on above: OB Start: 02-16-2025 End: 05-18-2025 Chromosome 21 trisomy [Presence] in Blood or Tissue by Cytogenetics [facility] Work Phone: Comment on above: Expected: 02/16/2025, Expires: Start: 02-16-2025 End: 02-16-2025 Patient encounter procedure [facility] Comment on above: Nuchal Nuchal /OB Start: 02-03-2025 End: 02-03-2025 ambulatory 02/03/2025 11:30 AM EST [facility] OB[facility]Gynecology [address] [place] [address] Roxanne Rowell MD [address] [place] [address] SORIN AJ TUBAL LIGATION OB/Gynecology Comment on above: VV WITH Dr. SORIN AJ TUBAL LIGATION Start: 02-03-2025 End: 02-03-2025 Patient encounter procedure 02/03/2025 11:30 AM EST Office Visit OB/Gynecology [address] [place] [address] Roxanne Rowell MD [address] [place] [address] Discuss Tubal Ligation, will need to sign Title 19 OB/Gynecology Comment on above: Discuss Tubal Ligation, will need to sig n Title 19 Start: 01-22-2025 End: 01-22-2025 ambulatory 01/22/2025 11:30 AM EST Results Only Christine Dotown [facility] [address] [place] [address] [facility] Start: 01-21-2025 End: 04-22-2025 ANEMIA REFLEX PANEL ANEMIA REFLEX PANEL Lab Routine with uncertain dates in first trimester Encounter for supervision of high risk in first trimester, antepartum Obesity affecting in first trimester, unspecified obesity type History of miscarriage Depression affecting Family history of defect Expected: 01/21/2025, Expires: 04/22/2025 [facility] Work Phone: Comment on above: Expected: 01/21/2025, Expires: Start: 01-21-2025 End: 04-22-2025 Comprehensive metabolic 2000 panel - Serum or Plasma COMPREHENSIVE METABOLIC PANEL Lab Routine Dizziness Expected: 01/21/2025, Expires: 04/22/2025 [facility] Comment on above: Expected: 01/21/2025, Expires: Start: 01-21-2025 End: 04-22-2025 Hemoglobin A1c in Blood HEMOGLOBIN A1C Lab Routine with uncertain dates in first trimester Encounter for supervision of high risk in first trimester, antepartum Obesity affecting in first trimester, unspecified obesity type History of miscarriage Depression affecting Family history of defect Expected: 01/21/2025, Expires: 04/22/2025 [facility] Comment on above: Expected: 01/21/2025, Expires: Start: 01-21-2025 End: 04-22-2025 Hepatitis B virus surface Ag [Presence] in Serum HEPATITIS B SURFACE ANTIGEN Lab Routine with uncertain dates in first trimester Encounter for supervision of high risk in first trimester, antepartum Obesity affecting in first trimester, unspecified obesity type History of miscarriage Depression affecting Family history of defect Expected: 01/21/2025, Expires: 04/22/2025 [facility] Comment on above: Expected: 01/21/2025, Expires: Start: 01-21-2025 End: 04-22-2025 Hepatitis C virus Ab [Presence] in Serum HEPATITIS C ANTIBODY IA WITH CONFIRMATION Lab Routine with uncertain dates in first trimester Encounter for supervision of high risk in first trimester, antepartum Obesity affecting in first trimester, unspecified obesity type History of miscarriage Depression affecting Family history of defect Expected: 01/21/2025, Expires: 04/22/2025 [facility] Comment on above: Expected: 01/21/2025, Expires: [...] history of defect Expected: 01/21/2025, Expires: 04/22/2025 [facility] Comment on above: Expected: 01/21/2025, Expires: Start: 01-21-2025 End: 01-21-2026 OBSTETRIC ULTRASOUND WHI OBSTETRIC ULTRASOUND WHI Anc Imaging Routine with uncertain dates in first trimester Encounter for supervision of high risk in first trimester, antepartum Obesity affecting in first trimester, unspecified obesity type History of miscarriage Depression affecting Family history of defect Expected: 01/21/2025, Expires: 01/21/2026 [facility] Comment on above: Expected: 01/21/2025, Expires: Start: 01-21-2025 End: 04-22-2025 RUBELLA IGG ANTIBODY RUBELLA IGG ANTIBODY Lab Routine with uncertain dates in first trimester Encounter for supervision of high risk in first trimester, antepartum Obesity affecting in first trimester, unspecified obesity type History of miscarriage Depression affecting Family history of defect Expected: 01/21/2025, Expires: 04/22/2025 [facility] Comment on above: Expected: 01/21/2025, Expires: Start: 01-21-2025 End: 04-22-2025 SYPHILIS TREPONEMAL W/REFLEX SYPHILIS TREPONEMAL W/REFLEX Lab Routine with uncertain dates in first trimester Encounter for supervision of high risk in first trimester, antepartum Obesity affecting in first trimester, unspecified obesity type History of miscarriage Depression affecting Family history of defect Expected: 01/21/2025, Expires: 04/22/2025 [facility] Comment on above: Expected: 01/21/2025, Expires: Start: 01-21-2025 End: 04-22-2025 Thyrotropin [Units/volume] in Serum or Plasma THYROID STIMULATING HORMONE Lab Routine Hypothyroidism affecting in first trimester Expected: 01/21/2025, Expires: 04/22/2025 [facility] Comment on above: Expected: 01/21/2025, Expires: Start: 01-21-2025 End: 04-22-2025 Thyroxine (T4) free [Mass/volume] in Serum or Plasma T4 FREE/FREE THYROXINE Lab Routine Hypothyroidism affecting in first trimester Expected: 01/21/2025, Expires: 04/22/2025 [facility] Comment on above: Expected: 01/21/2025, Expires: Start: 01-21-2025 End: 04-22-2025 TYPE + SCREEN TYPE + SCREEN Blood Bank Routine with uncertain dates in first trimester Encounter for supervision of high risk in first trimester, antepartum Obesity affecting in first trimester, unspecified obesity type History of miscarriage Depression affecting Family history of defect Expected: 01/21/2025, Expires: 04/22/2025 [facility] Comment on above: Expected: 01/21/2025, Expires: Start: 08-02-2024 Covid-19 Vaccine () Covid-19 Vaccine () [facility] Start: 08-02-2024 Covid-19 Vaccine () Covid-19 Vaccine () [facility] Start: 08-02-2024 Influenza vaccination [facility] Start: 03-25-2024 End: 04-08-2024 COVID & INFLUENZA A/B & RSV NAAT, ROUTINE COVID & INFLUENZA A/B & RSV NAAT, ROUTINE Microbiology Routine URI, acute Acute cough Expected: 03/25/2024, Expires: 04/08/2024 [facility] Work Phone: Comment on above: Expected: 03/25/2024, Expires: Start: 12-02-2023 Behavioral Health Screening Behavioral Health Screening [facility] Start: 10-17-2023 Patient discharge [facility] Start: 10-15-2023 Administration of medication [facility] Start: 10-15-2023 Application of ice collar, cap or bag [facility] Start: 10-15-2023 Catheterization of vein [facility] Start: 10-15-2023 Introduction of urinary catheter [facility] Start: 10-15-2023 Measuring intake and output [facility] Start: 10-15-2023 Notification of physician [facility] Start: 10-15-2023 Procedure discontinued [facility] Start: 10-15-2023 Provision of activity privileges [facility] Start: 10-15-2023 Vital signs measurements [facility] Start: 10-15-2023 [facility] Start: 10-15-2023 Admission procedure [facility] Start: 10-10-2023 Nonstress test [facility] Start: 10-10-2023 Obstetric monitoring [facility] Start: 10-10-2023 Vital signs measurements [facility] Start: 10-10-2023 [facility] Start: 10-10-2023 Patient discharge [facility] Start: 09-22-2023 Nonstress test [facility] Start: 09-22-2023 Obstetric monitoring [facility] Start: 09-22-2023 Vital signs measurements [facility] Start: 09-22-2023 [facility] Start: 09-22-2023 Patient discharge [facility] Start: 08-17-2023 End: 08-17-2023 [facility] Start: 08-17-2023 Nonstress test [facility] Start: 08-17-2023 Obstetric monitoring [facility] Start: 08-17-2023 Vital signs measurements [facility] Start: 08-17-2023 Bacteria identified in Urine by Culture Urine Culture [facility] Start: 08-17-2023 Patient discharge [facility] Start: 08-02-2023 Covid-19 Vaccine ( season) Covid-19 Vaccine ( season) [facility] Start: 08-02-2023 Influenza vaccination [facility] Start: 07-23-2023 End: 09-22-[address] [facility] Work Phone: Comment on above: Expected: 07/23/2023, Expires: Start: 07-21-2023 Nonstress test [facility] Start: 07-21-2023 Obstetric monitoring [facility] Start: 07-21-2023 Vital signs measurements [facility] Start: 07-21-2023 [facility] Start: 07-12-2023 End: 09-11-2023 Protein/Creatinine [Mass Ratio] in Urine PROTEIN CREATININE RATIO Lab Routine Gestational proteinuria in second trimester Expected: 07/12/2023, Expires: 09/11/2023 [facility] Work Phone: Comment on above: Expected: 07/12/2023, Expires: 3 Start: 07-11-2023 End: 09-10-2023 Amylase [Enzymatic activity/volume] in Serum or Plasma [facility] Work Phone: Comment on above: Expected: 07/11/2023, Expires: 3 Start: 07-11-2023 End: 09-10-[address] [facility] Work Phone: Comment on above: Expected: 07/11/2023, Expires: 3 Start: 07-11-2023 End: 09-10-2023 Lipase [Enzymatic activity/volume] in Serum or Plasma [facility] Work Phone: Comment on above: Expected: 07/11/2023, Expires: 3 Start: 06-27-2023 End: 08-27-2023 CBC W Auto Differential panel - Blood CBC + DIFF Lab Routine Supervision of high risk in second trimester 22 weeks gestation of Expected: 06/27/2023, Expires: 08/27/2023 [facility] Work Phone: Comment on above: Expected: 06/27/2023, Expires: 3 Start: 06-27-2023 End: 08-27-2023 GEST GLUC SCREEN, 1-HR, 50 GM, NON-FASTING GEST GLUC SCREEN, 1-HR, 50 GM, NON-FASTING Lab Routine Supervision of high risk in second trimester 22 weeks gestation of Expected: 06/27/2023, Expires: 08/27/2023 [facility] Work Phone: Comment on above: Expected: 06/27/2023, Expires: 3 Start: 06-27-2023 End: 08-27-2023 SYPHILIS TOTAL W/REFLEX SYPHILIS TOTAL W/REFLEX Lab Routine Supervision of high risk in second trimester 22 weeks gestation of Expected: 06/27/2023, Expires: 08/27/2023 [facility] Work Phone: Comment on above: Expected: 06/27/2023, Expires: Start: 04-03-2023 [facility] Start: 03-03-2023 Patient discharge [facility] Start: 12-02-2022 DEPRESSION ASSESSMENT DEPRESSION ASSESSMENT [facility] Start: 11-12-2022 Egd transoral biopsy single/multiple EGD BIOPSY SINGLE/MULTIPLE [facility] Start: 11-12-2022 Patient discharge [facility] Start: 10-01-2022 Patient referral [facility] Work Phone: Start: 09-24-2022 Patient discharge [facility] Work Phone: Start: 09-24-2022 Referral to service [facility] Work Phone: Start: 09-24-2022 [facility] Work Phone: Start: 09-23-2022 Application of intermittent pneumatic compression device [facility] Work Phone: Start: 09-23-2022 Cholangiogram Cholangiogram/ O R,Initial [facility] Work Phone: Start: 09-23-2022 Fluoroscopic guidance O.R. Fluoro for [facility] Work Phone: Start: 09-23-2022 End: 09-23-2022 Following clinical pathway protocol [facility] Work Phone: Start: 09-23-2022 Incentive spirometry [facility] Work Phone: Start: 09-23-2022 [facility] Work Phone: Start: 09-23-2022 Admission procedure [facility] Work Phone: Start: 09-23-2022 Following clinical pathway protocol [facility] Work Phone: Start: 02-19-2022 Group B Streptococcus Culture Group B Streptococcus Culture [facility] Work Phone: Start: 2018 PAP TESTING PAP TESTING [facility] Start: 2018 Screening for malignant neoplasm of cervix [facility] Start: 2016 Urine microalbumin profile DTAP,TDAP,TD (1 - Tdap) [facility] Start: 2015 Annual PCP Team Chronic Disease Visit Annual PCP Team Chronic Disease Visit [facility] Start: 2015 Anxiety Screening Anxiety Screening [facility] Start: 2015 Depression Screening Depression Screening [facility] Start: 2015 HEPATITIS C SCREENING HEPATITIS C SCREENING [facility] Start: 2015 HIV SCREENING HIV SCREENING [facility] Start: 2011 PEDS TO ADULT TRANSITION ANNUAL ASSESSMENT PEDS TO ADULT TRANSITION ANNUAL ASSESSMENT [facility] Start: 2009 PEDS TO ADULT TRANSITION INITIAL DISCUSSION PEDS TO ADULT TRANSITION INITIAL DISCUSSION [facility] Start: 2008 HPV VACCINE (1 - 2-dose series) HPV VACCINE (1 - 2-dose series) [facility] Start: 2006 HPV VACCINE (1 - 2-dose series) HPV VACCINE (1 - 2-dose series) [facility] Start: 2003 PNEUMOCOCCAL (1 - PCV) PNEUMOCOCCAL (1 - PCV) [facility] Start: 04-15-1998 COVID-19 VACCINE (#1) COVID-19 VACCINE (#1) [facility] Start: 1997 HEPATITIS B (1 of 3 - 3-dose series) HEPATITIS B (1 of 3 - 3-dose series) [facility] Alanine aminotransfe rase [Enzymatic activity/volume] in Serum or Plasma [facility] Work Phone: Albumin [Mass/volume ] in Serum or Plasma [facility] Work Phone: Alkaline phosphatase [Enzymatic activity/volume] in Serum or Plasma [facility] Work Phone: Anion gap measurement [facility] Work Phone: Aspartate aminotransferase [Enzymatic activity/volume] in Serum or Plasma [facility] Work Phone: Bacteria identified in Urine by Culture URINE CULTURE Microbiology Routine Vaginal burning Vaginal discharge during in second trimester 07/11/2023 12:[address] [facility] Work Phone: Bacteria identified in Urine by Culture URINE CULTURE Microbiology Routine Maternal obesity syndrome in third trimester Supervision of high risk in third trimester 33 weeks gestation of 09/11/2023 10:57 AM [facility] Work Phone: Bacteria identified in Urine by Culture BACTERIAL CULTURE, URINE Microbiology Routine with uncertain dates in first trimester Encounter for supervision of high risk in first trimester, antepartum Obesity affecting in first trimester, unspecified obesity type History of miscarriage Depression affecting Family history of defect 01/21/2025 10:[address] [facility] Bacteria identified in Urine by Culture BACTERIAL CULTURE, URINE Microbiology Routine 02/16/2025 9:43 AM [facility] Bacteria identified in Urine by Culture BACTERIAL CULTURE, URINE Microbiology Routine Dysuria 04/08/2025 9:10 AM [facility] Work Phone: Bacteria identified in Urine by Culture BACTERIAL CULTURE, URINE Microbiology Routine Pyelonephritis complicating , antepartum ([facility]) 04/14/2025 2:04 PM [facility] Work Phone: Bacteria identified in Urine by Culture BACTERIAL CULTURE, URINE Microbiology Routine 24 weeks gestation of ([facility]) Pyelonephritis complicating , antepartum ([facility]) 05/06/2025 8:37 AM [facility] Bacteria identified in Urine by Culture BACTERIAL CULTURE, URINE Microbiology Routine Dysuria 06/21/2025 2:37 PM [facility] Work Phone: Bacteria identified in Urine by Culture BACTERIAL CULTURE, URINE Microbiology Routine UTI (urinary tract infection) in , antepartum ([facility]) 07/13/2025 9:37 AM [facility] Work Phone: Bilirubin measuremen t, urine [facility] Bilirubin, total measurement [facility] Work Phone: BUN/Creatinine ratio [facility] Work Phone: Calcium [Mass/volume ] in Serum or Plasma [facility] Work Phone: Carbon dioxide, tota l [Moles/volume] in Serum or Plasma [facility] Work Phone: Chlamydia trachomatis+Neisseria gonorrhoeae DNA [Presence] in Unspecified specimen by KOLE with probe detection GONORRHEA/CHLAMYDIA NAAT Lab Routine with uncertain dates in first trimester Encounter for supervision of high risk in first trimester, antepartum Obesity affecting in first trimester, unspecified obesity type History of miscarriage Depression affecting Family history of defect Screen for STD (sexually transmitted disease) 01/21/2025 10:[address] [facility] Chloride [Moles/volu me] in Serum or Plasma [facility] Work Phone: Creatinine [Moles/vo lume] in Serum or Plasma [facility] Work Phone: End: 11-10-2023 nonstress test NON-STRESS TEST Procedures Routine Maternal obesity syndrome in third trimester Supervision of high risk in third trimester Once per week for 6 Occurrences starting 09/11/2023 until 11/10/2023 [facility] Work Phone: Comment on above: Once per week for 6 Occurrences starting 09/11/2023 until 11/10/2023 End: 08-24-2025 nonstress test NON-STRESS TEST Procedures Routine Obesity affecting in third trimester, unspecified obesity type (HCC) Decreased movements in third trimester, single or unspecified fetus (HCC) Once per week for 8 Occurrences starting 06/16/2025 until 08/24/2025 [facility] Work Phone: Comment on above: Once per week for 8 Occurrences starting 06/16/2025 until 08/24/2025 Glucose [Mass/volume ] in Serum or Plasma [facility] Work Phone: Hematocrit [Volume Fraction] of Blood [facility] Work Phone: Hemoglobin [Mass/vol ume] in Blood [facility] Work Phone: Hemoglobin [Presence ] in Urine [facility] Leukocytes [#/volume ] in Blood [facility] Work Phone: Lipid 1996 panel - S mahi or Plasma [facility] Work Phone: Mean corpuscular hemoglobin concentration determination [facility] Work Phone: Mean corpuscular hemoglobin determination [facility] Work Phone: Measurement of keton es in urine using dipstick [facility] Measurement of renal function [facility] Work Phone: Microscopic observat ion [Identifier] in Vaginal fluid by Gram stain BACT/JOHN VAG GRAM STAIN Microbiology Routine Vaginal burning Vaginal discharge during in second trimester 07/11/2023 12:[address] [facility] Work Phone: Neutrophil count [facility] Work Phone: Neutrophil percent differential count [facility] Work Phone: End: 10-31-2023 OBSTETRIC ULTRASOUND [facility] OBSTETRIC ULTRASOUND [facility] Routine Supervision of high risk in second trimester Maternal obesity syndrome in third trimester BMI 39.0-39.9,adult Once per month for 2 Occurrences starting 08/02/2023 until 10/31/2023 [facility] Work Phone: Comment on above: Once per month for 2 Occurrences startin g 08/02/2023 until 10/31/2023 PAP TEST PAP TEST Lab Dorene darron with uncertain dates in first trimester Encounter for supervision of high risk in first trimester, antepartum Obesity affecting in first trimester, unspecified obesity type History of miscarriage Depression affecting Family history of defect Screening for cervical cancer 01/21/2025 10:18 AM EST [facility] Patient Education [facility] Work Phone: Patient referral [facility] Work Phone: pH of Urine [facility] Platelets [#/volume] in Blood [facility] Work Phone: Polysomnography [facility] Work Phone: Potassium [Moles/vol ume] in Serum or Plasma [facility] Work Phone: Red blood cell count [facility] Work Phone: Red cell distributio n width determination [facility] Work Phone: ROUTINE, GR OUP B STREP PCR ROUTINE, GROUP B STREP PCR Microbiology Routine Obesity affecting , antepartum, unspecified obesity type Supervision of high risk in third trimester UTI (urinary tract infection) during , third trimester 35 weeks gestation of 10/01/2023 11:[address] [facility] Work Phone: ROUTINE, GR OUP B STREPTOCOCCUS BY PCR ROUTINE, GROUP B STREPTOCOCCUS BY PCR Microbiology Routine 36 weeks gestation of ([facility]) 07/27/2025 10:[address] [facility] Work Phone: Sodium [Moles/volume ] in Serum or Plasma [facility] Work Phone: Specific gravity of Urine [facility] Total protein measurement [facility] Work Phone: TRICHOMONAS VAGINALI S NAAT TRICHOMONAS VAGINALIS NAAT Lab Routine Screen for STD (sexually transmitted disease) 01/21/2025 10:[address] [facility] UA DIP, URINE (POC) UA DIP, URIN E (POC) Lab Routine Ordered: 01/21/2025 [facility] Comment on above: Ordered: 01/21/2025 Urea nitrogen [Mass/volume] in Serum or Plasma [facility] Work Phone: Urine dipstick for glucose [facility] Urine dipstick for leukocyte esterase [facility] Urine dipstick for nitrite [facility] Urine dipstick for protein [facility] Urine examination [facility] URINE OB DIP B/O URINE OB DIP B/ O Lab Routine Obesity affecting , antepartum, unspecified obesity type Supervision of high risk in third trimester UTI (urinary tract infection) during , third trimester 35 weeks gestation of Ordered: 10/01/2023 [facility] Work Phone: Comment on above: Ordered: 10/01/2023 Urobilinogen [Presen ce] in Urine [facility] Vitamin D, 25-hydrox y measurement [facility] Work Phone: [facility] [place] Immunizations Immunization Date Immunization Notes Care Provider [facility] 06-03-2025 tetanus toxoid, redu giovana diphtheria toxoid, and acellular pertussis vaccine, adsorbed Epifanio Sanchez MD Work Phone: [facility] 08-02-2023 tetanus toxoid, redu giovana diphtheria toxoid, and acellular pertussis vaccine, adsorbed Roxanne Rowell MD Work Phone: [facility] 09-24-2022 influenza, injectabl e, quadrivalent, preservative free [facility] 09-24-2022 influenza, seasonal, injectable No Primary Care Physician [facility] 09-24-2022 influenza virus vacc ine, unspecified formulation Roxanne Rowell MD Work Phone: [facility] 07-27-2016 hepatitis A vaccine, adult dosage No Primary Care Physician [facility] 07-27-2016 hepatitis A vaccine, pediatric/adolescent dosage, 2 dose schedule Roxanne Rowell MD Work Phone: [facility] 07-26-2015 HPV, unspecified formulation Roxanne Rowell MD Work Phone: [facility] 07-26-2015 human papilloma viru s vaccine, quadrivalent No Primary Care Physician [facility] 07-26-2015 meningococcal polysaccharide (groups A, C, Y and W-135) diphtheria toxoid conjugate vaccine (MCV4P) No Primary Care Physician [facility] 10-14-2014 influenza, injectabl e, quadrivalent, preservative free Roxanne Rowell MD Work Phone: [facility] 10-14-2014 influenza, seasonal, injectable No Primary Care Physician [facility] 09-18-2012 influenza, injectabl e, quadrivalent, preservative free [facility] 09-18-2012 influenza, seasonal, injectable No Primary Care Physician [facility] 09-18-2012 influenza, seasonal, injectable, preservative free Roxanne Rowell MD Work Phone: [facility] 10-08-2011 human papilloma viru s vaccine, quadrivalent No Primary Care Physician [facility] 10-08-2011 influenza, injectabl e, quadrivalent, preservative free [facility] 10-08-2011 influenza, seasonal, injectable No Primary Care Physician [facility] 10-08-2011 influenza, seasonal, injectable, preservative free Roxanne Rowell MD Work Phone: [facility] 10-08-2011 meningococcal polysaccharide (groups A, C, Y and W-135) diphtheria toxoid conjugate vaccine (MCV4P) No Primary Care Physician [facility] 02-02-2010 human papilloma viru s vaccine, quadrivalent No Primary Care Physician [facility] 02-02-2010 tetanus toxoid, redu giovana diphtheria toxoid, and acellular pertussis vaccine, adsorbed No Primary Care Physician [facility] 10-21-2009 influenza virus vacc ine, live, attenuated, for intranasal use No Primary Care Physician [facility] 10-21-2009 novel influenza-H1N1 -09, preservative-free, injectable No Primary Care Physician [facility] 10-09-2008 influenza virus vacc ine, live, attenuated, for intranasal use No Primary Care Physician [facility] 10-17-2006 influenza virus vacc ine, whole virus Roxanne Rowell MD Work Phone: [facility] 10-17-2006 influenza, injectabl e, quadrivalent, preservative free [facility] 10-17-2006 influenza, seasonal, injectable No Primary Care Physician [facility] 11-03-2003 influenza virus vacc ine, whole virus Roxanne Rowell MD Work Phone: [facility] 11-03-2003 influenza, injectabl e, quadrivalent, preservative free [facility] 11-03-2003 influenza, seasonal, injectable No Primary Care Physician [facility] 03-10-2003 diphtheria, tetanus toxoids and acellular pertussis vaccine No Primary Care Physician [facility] 03-10-2003 diphtheria, tetanus toxoids and acellular pertussis vaccine, unspecified formulation Roxanne Rowell MD Work Phone: [facility] 03-10-2003 measles, mumps and rubella virus vaccine No Primary Care Physician [facility] 03-10-2003 poliovirus vaccine, inactivated No Primary Care Physician [facility] 03-13-2000 diphtheria, tetanus toxoids and acellular pertussis vaccine Roxanne Rowell MD Work Phone: [facility] 03-13-2000 DTaP-hepatitis B and poliovirus vaccine No Primary Care Physician [facility] 03-13-2000 haemophilus influenz ae type b vaccine, PRP-T conjugate No Primary Care Physician [facility] 10-21-1998 measles, mumps and rubella virus vaccine Roxanne Rowell MD Work Phone: [facility] 10-21-1998 measles, mumps, rube lla, and varicella virus vaccine No Primary Care Physician [facility] 10-21-1998 varicella virus vaccine Jacqui Rowell MD Work Phone: [facility] 04-28-1998 diphtheria, tetanus toxoids and acellular pertussis vaccine Roxanne Rowell MD Work Phone: [facility] 04-28-1998 DTaP-hepatitis B and poliovirus vaccine No Primary Care Physician [facility] 04-28-1998 haemophilus influenz ae type b vaccine, PRP-T conjugate No Primary Care Physician [facility] 04-28-1998 hepatitis B vaccine, pediatric or pediatric/adolescent dosage Roxanne Rowell MD Work Phone: [facility] 04-28-1998 poliovirus vaccine, inactivated Roxanne Rowell MD Work Phone: [facility] 02-17-1998 diphtheria, tetanus toxoids and acellular pertussis vaccine Roxanne Rowell MD Work Phone: [facility] 02-17-1998 DTaP-hepatitis B and poliovirus vaccine No Primary Care Physician [facility] 02-17-1998 haemophilus influenz ae type b vaccine, PRP-T conjugate No Primary Care Physician [facility] 02-17-1998 poliovirus vaccine, inactivated Roxanne Rowell MD Work Phone: [facility] 1997 diphtheria, tetanus toxoids and acellular pertussis vaccine Roxanne Rowell MD Work Phone: [facility] 1997 DTaP-hepatitis B and poliovirus vaccine No Primary Care Physician [facility] 1997 haemophilus influenz ae type b vaccine, PRP-T conjugate No Primary Care Physician [facility] 1997 poliovirus vaccine, inactivated Roxanne Rowell MD Work Phone: [facility] 1997 hepatitis B vaccine, pediatric or pediatric/adolescent dosage No Primary Care Physician [facility] 1997 hepatitis B vaccine, pediatric or pediatric/adolescent dosage No Primary Care Physician [facility] Payers Date Payer Category Payer Self-pay [id number] 2024 Private Health Insurance MMO SUP [employer] PPO [id number] 2024 Unknown [id number] 2023 Medicaid [id number] 2018 Unknown 2014 Medicaid [id number] 2014 Unknown [id number] 1997 Unknown [id number] 1997 Unknown [id number] Unknown [id number] Unknown [id number] 019 Unknown [id number] Unknown [id number] Unknown [id number] Unknown [id number] Unknown [id number] Unknown [id number] Social History Date Type Detail Facility Start: 08-20-2021 End: 10-15-2023 Tobacco smoking status [facility] Unknown if ever smoked [facility] Start: 1995 Sex Assigned At Female [facility] Start: 02-08-2023 End: 11-30-2024 Tobacco smoking status SDIS Smokes tobacco daily [facility] Start: 02-08-2023 Alcohol intake Not Asked [facility] Start: 02-08-2023 Tobacco Comment mother smokes [facility] Start: 1995 Sex Assigned At Not on file [facility] Start: 02-06-[address] [facility] Start: 03-25-2023 End: 11-30-2024 Tobacco smoking status NHIS Ex-smoker [facility] Work Phone: Start: 04-08-2015 End: 04-08-2020 History of tobacco use Current smoker [facility] Work Phone: Start: 04-08-2015 End: 04-08-2020 History of tobacco use Cigarette Smoker [facility] Work Phone: Start: 03-25-2023 End: 11-30-2024 Tobacco use and exposure Smokeless tobacco non-user [facility] Work Phone: Start: 04-01-2023 End: 07-27-2025 Alcohol intake Ex-drinker (finding) [facility] Start: 03-25-2023 Education 21 [facility] Start: 03-25-2023 Alcohol Comment Socially [facility] Start: 05-29-2023 End: 11-06-2024 History of Social function [facility] Start: 05-29-2023 End: 11-06-2024 Tobacco use panel [facility] Start: 11-02-2012 National Score (1-100), lower number is lower risk 66 [facility] Start: 11-01-2024 Gender identity Identifies as female gender (finding) [facility] Start: 01-20-2025 Sexual orientation Bisexual (finding ) [facility] NEGATED: Highlighted row [facility] Medical Equipment Procedure Code Equipment Code Equipment Original Text Equipment Identifier Dates Total cholecystectomy with exploration of common bile duct Open-surgery ligation clip mame [id number] Start: 09-23-2022 Goals Date Patient Goal Desired Activity /State Personal health goal Functional Status Date Assessment Result Facility 04-28-2025 Are you deaf, or do you have serious difficulty hearing No 04/28/2025 9:38 AM Becky Bird RN No [facility] 04-28-2025 Are you blind, or do you have serious difficulty seeing, even when wearing glasses No 04/28/2025 9:38 AM Becky Bird RN No [facility] 04-28-2025 Do you have serious difficulty walking or climbing stairs No 04/28/2025 9:38 AM Becky Bird RN [facility] 04-28-2025 Do you have difficul ty dressing or bathing No 04/28/2025 9:38 AM Becky Bird RN [facility] 04-28-2025 Because of a physica l, mental, or emotional condition, do you have difficulty doing errands alone such as visiting a physician's office or shopping No 04/28/2025 9:38 AM Becky Bird RN No [facility] 04-11-2025 Are you deaf, or do you have serious difficulty hearing No 04/11/2025 9:12 AM Mango Melendrez RN [facility] 04-11-2025 Are you blind, or do you have serious difficulty seeing, even when wearing glasses No 04/11/2025 9:12 AM Mango Melendrez RN [facility] 04-11-2025 Do you have serious difficulty walking or climbing stairs No 04/11/2025 9:12 AM Mango Melendrez RN No [facility] 04-11-2025 Do you have difficul ty dressing or bathing No 04/11/2025 9:12 AM Mango Melendrez RN [facility] 04-11-2025 Because of a physica l, mental, or emotional condition, do you have difficulty doing errands alone such as visiting a physician's office or shopping No 04/11/2025 9:12 AM Mango Melendrez RN [facility] 10-15-2023 Functional status Activity Abili ty 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 Work Phone: 03-28-2015 Are you deaf, or do you have serious difficulty hearing No 03/28/2015 11:57 AM Luz Maria Hendrix MA No [facility] 03-28-2015 Are you blind, or do you have serious difficulty seeing, even when wearing glasses No 03/28/2015 11:57 AM Luz Maria Hendrix MA [facility] 03-28-2015 Do you have serious difficulty walking or climbing stairs No 03/28/2015 11:57 AM Luz Maria Hendrix MA [facility] 03-28-2015 Do you have difficul ty dressing or bathing No 03/28/2015 11:57 AM Luz Maria Hendrix MA No [facility] 03-28-2015 Because of a physica l, mental, or emotional condition, do you have difficulty doing errands alone such as visiting a physician's office or shopping No 03/28/2015 11:57 AM Luz Maria Hendrix MA [facility] Mental Status Date Assessment Result Facility 04-28-2025 Because of a physica l, mental, or emotional condition, do you have serious difficulty concentrating, remembering, or making decisions No 04/28/2025 9:38 AM Becky Bird RN [facility] 04-11-2025 Because of a physica l, mental, or emotional condition, do you have serious difficulty concentrating, remembering, or making decisions No 04/11/2025 9:12 AM Mango Melendrez RN [facility] 11-12-2022 Cognitive function Voice/Name [facility] Work Phone: 09-24-2022 Cognitive function Level Of Cons ciousness Awake;Alert;Appropriate;Fol lows Commands [facility] Work Phone: 09-24-2022 Cognitive function Voice/Name [facility] Work Phone: 09-23-2022 Cognitive function Level Of Cons ciousness Awake;Alert;Appropriate;Fol lows Commands [facility] Work Phone: 03-28-2015 Because of a physica l, mental, or emotional condition, do you have serious difficulty concentrating, remembering, or making decisions No 03/28/2015 11:57 AM EDT Luz Maria Hanna MA No [facility] Clinical Notes 02-08-2023 to 07-27-2025 Funmilayo Bernardo MD - 07/27/2025 10:22 AM EDTPrenatal Quick Notes - Funmilayo Bernardo MD - 07/27/2025 10:21 AM EDTPrenatal Quick Notes - Funmilayo Bernardo MD - 07/27/2025 10:21 AM EDT Note Date & Type Note Facility 07-27-2025 Note HNO ID: [id number] Author: FUNMILAYO BERNARDO MD Service: ? Author Type: Physician Type: Progress Notes Filed: 07/27/2025 10:22 Note Text: NST SUMMARY PROVIDER ASSESSMENT AND INTERPRETATION Indications for NST: Obesity Baseline: 140 Variability: Moderate Accelerations: Present 15 X 15 Decelerations: None Interpretation: Reactive SIGNATURE: Funmilayo Bernardo MD [facility] [place] 07-27-2025 History of Presen t illness Narrative NST SUMMARY PROVIDER ASSESSMENT AND INTERPRETATION Indications for NST: Obesity Baseline: 140 Variability: Moderate Accelerations: Present 15 X 15 Decelerations: None Interpretation: Reactive SIGNATURE: Funmilayo Bernardo MD documented in this encounter [facility] 07-27-2025 Progress note Formatting of t his note might be different from the original. S: Yokasta Pretty is a 29 year old female who presents at 08/22/2025, by Last Menstrual Period for a routine visit. Denies headache, visual changes, chest pain, shortness of breath, vaginal bleeding, leakage of fluid, or dysuria. Feeling well, no complaints. Good movement, No contractions O: See flow sheet Gen: No apparent distress Abd: Gravid, nontender Reactive NST GCS collected VTX on US ASSESSMENT/PLAN: 1. 36 weeks gestation of (HCC) - ICD9: V22.2, ICD10: Z3A.36 (primary diagnosis) - URINE OB DIP B/O - ROUTINE, GROUP B STREPTOCOCCUS BY PCR 2. Obesity affecting in third trimester, unspecified obesity type ([facility]) - ICD9: 649.13, ICD10: O99.213 Weekly NSTs Growth q 4 - URINE OB DIP B/O Funmilayo Bernardo MD [facility] 07-27-2025 Miscellaneous Notes Formattin g of this note might be different from the original. S: Yokasta Pretty is a 29 year old female who presents at 08/22/2025, by Last Menstrual Period for a routine visit. Denies headache, visual changes, chest pain, shortness of breath, vaginal bleeding, leakage of fluid, or dysuria. Feeling well, no complaints. Good movement, No contractions O: See flow sheet Gen: No apparent distress Abd: Gravid, nontender Reactive NST GCS collected VTX on US ASSESSMENT/PLAN: 1. 36 weeks gestation of (HCC) - ICD9: V22.2, ICD10: Z3A.36 (primary diagnosis) - URINE OB DIP B/O - ROUTINE, GROUP B STREPTOCOCCUS BY PCR 2. Obesity affecting in third trimester, unspecified obesity type ([facility]) - ICD9: 649.13, ICD10: O99.213 Weekly NSTs Growth q 4 - URINE OB DIP B/O Funmilayo Bernardo MD documented in this encounter [facility] 07-27-2025 Instructions Elena Hess LPN - 07/27/2025 9:13 AM EDT SEQUENTIAL SCREENINGS The [facility] offers sequential screenings for women who [...] It will require an appointment with our electronic technician. This is not an ultrasound performed [...] the above symptoms, contact our office at [phone] and ask to speak with a nurse. After hours, you can call doctors registry at [phone] OR call [facility] at [phone] and ask to have the doctor online program coordinator paged. If you consider this an emergency, dial 2-1- or go to your nearest emergency department. NEED HELP? Are you dealing with a violent or abusive relationship? Are you a victim of rape or sexual assult? Call [facility] ([facility] 24 hour Crisis Hotline: 450.545.6315 or 505-898-7507. MANUAL Your Guide to a Healthy manual is now on-line. Visit [email or web address] to download your free copy documented in this encounter [facility] 07-20-2025 Note HNO ID: [id number] Author: EPIFANIO SANCHEZ MD Service: ? Author Type: Physician [...] Variable Contractions: TOCO: None Interpretation: Reactive SIGNATURE: Epifanio Sanchez MD [facility] [place] 07-20-2025 History of Presen t illness Narrative NST SUMMARY PROVIDER ASSESSMENT AND INTERPRETATION Yokasta Pretty is a 29 year old female, , who is at 35w2d with an CLAUDIO of 08/22/2025, by Last Menstrual Period dating method. Indications for NST: Obesity Baseline: 135 Variability: Moderate Accelerations: Present 15 X 15 Decelerations: Variable Contractions: TOCO: None Interpretation: Reactive SIGNATURE: Epifanio Sanchez MD documented in this encounter [facility] 07-20-2025 Instructions Michelle Florian MA - 07/20/2025 8:49 AM EDT SEQUENTIAL SCREENINGS The [facility] offers sequential screenings for women who [...] It will require an appointment with our electronic technician. This is not an ultrasound performed [...] the above symptoms, contact our office at [phone] and ask to speak with a nurse. After hours, you can call doctors registry at [phone] OR call [facility] at [phone] and ask to have the doctor online program coordinator paged. If you consider this an emergency, dial or go to your nearest emergency department. NEED HELP? Are you dealing with a violent or abusive relationship? Are you a victim of rape or sexual assult? Call [facility] ([place]) 24 hour Crisis Hotline: 562.272.6837 or 245-748-0003. MANUAL Your Guide to a Healthy manual is now on-line. Visit [email or web address] to download your free copy documented in this encounter [facility] 07-15-2025 Telephone encount er Note 34w4d Left message for patient to call office. Funmilayo Panchal RN Result Note Patient should stop the macrobid as developing UTI on it. Recommend bid bactrim for 1 week. Epifanio Sanchez MD BACTERIAL CULTURE, URINE [facility] 07-15-2025 Miscellaneous Notes Formattin g of this note might be different from the original. 34w4d Left message for patient to call office. Funmilayo Panchal RN Result Note Patient should stop the macrobid as developing UTI on it. Recommend bid bactrim for 1 week. Epifanio Sanchez MD BACTERIAL CULTURE, URINE documented in this encounter [facility] 07-13-2025 Note HNO ID: [id number] Author: EPIFANIO SANCHEZ MD Service: ? Author Type: Physician [...] Variable Contractions: TOCO: None Interpretation: Reactive SIGNATURE: Epifanio Sanchez MD [facility] [place] 07-13-2025 History of Presen t illness Narrative NST SUMMARY PROVIDER ASSESSMENT AND INTERPRETATION Yokasta Pretty is a 29 year old female, , who is at 34w2d with an CLAUDIO of 08/22/2025, by Last Menstrual Period dating method. Indications for NST: Obesity Baseline: 140 Variability: Moderate Accelerations: Present 15 X 15 Decelerations: Variable Contractions: TOCO: None Interpretation: Reactive SIGNATURE: Epifanio Sanchez MD documented in this encounter [facility] 07-13-2025 Progress note Formatting of t [...] NST today Reviewed PTL & FM precautions Epifanio Sanchez MD [facility] 07-13-2025 Miscellaneous Notes Formattin g of [...] NST today Reviewed PTL & FM precautions Epifanio Sanchez MD documented in this encounter [facility] 07-13-2025 Instructions Michelle Florian MA - 07/13/2025 8:45 AM EDT SEQUENTIAL SCREENINGS The [facility] offers sequential screenings for women who [...] It will require an appointment with our electronic technician. This is not an ultrasound performed [...] the above symptoms, contact our office at [phone] and ask to speak with a nurse. After hours, you can call doctors registry at [phone] OR call [facility] at [phone] and ask to have the doctor online program coordinator paged. If you consider this an emergency, dial 9-1-3 or go to your nearest emergency department. NEED HELP? Are you dealing with a violent or abusive relationship? Are you a victim of rape or sexual assult? Call [facility] ([facility] 24 hour Crisis Hotline: 154.781.2016 or 589-230-4542. MANUAL Your Guide to a Healthy manual is now on-line. Visit [email or web address] to download your free copy documented in this encounter [facility] 07-06-2025 Note HNO ID: [id number] Author: ROXANNE ROWELL MD Service: ? Author Type: Physician [...] None Contractions: TOCO: None Interpretation: Reactive SIGNATURE: Roxanne Rowell MD [facility] 07-02-2025 Note Indication Evaluation of growth, Evaluation [...] 8 oz EFW by: [employer] (HC-AC-FL) Extended [employer] 5.9 mm Extremities / Bony Struc [place] [...] Wants to know sex: yes Performed By: Kalyn Aponte RDMS, RVT Read By: Ping Sotomayor [...] - RTO 1 wk Noam Wyman DO [facility] 07-02-2025 Miscellaneous Notes Formattin g of [...] Noam Wyman DO documented in this encounter [facility] 07-02-2025 Instructions Michelle Florian MA - 07/02/2025 8:38 AM EDT SEQUENTIAL SCREENINGS The [facility] offers sequential screenings for women who [...] It will require an appointment with our electronic technician. This is not an ultrasound performed [...] the above symptoms, contact our office at [phone] and ask to speak with a nurse. After hours, you can call doctors registry at [phone] OR call [facility] at [phone] and ask to have the doctor online program coordinator paged. If you consider this an emergency, dial 08-02-0 or go to your nearest emergency department. NEED HELP? Are you dealing with a violent or abusive relationship? Are you a victim of rape or sexual assult? Call [facility] ([place]) 24 hour Crisis Hotline: 806.178.6817 or 966-988-8348. MANUAL Your Guide to a Healthy manual is now on-line. Visit [email or web address] to download your free copy documented in this encounter [facility] 06-22-2025 Progress note Note Date/Time June 22, 2025 7:50 am [facility] Medical Records Department [address] [place] [address] Progress Note - OBGYN 06/22/25 0746 MR#: [id number] Acct: [id number] Name: YOKASTA PRETTY Rep #:[id number] : 1995 29 From: Bettie Blum CNM PCP: BENNETT Lind, [employer] Statu s:REG CLI Location: [id number] Subjective Subjective Patient seen at bedside. C/O [...] 50 50 966.67 / 966.67 Balance 50 50 966.67 / 966.67 Lab / Micro [...] 79.4 H, Lymph % (Auto) 12.8 L, Beaver % (Auto) 6.6, Eos % (Auto) 0.5, [...] over patient 06/22/25 0750 <Electronically signed by Bettie Blum CNM> Cosigner Signature (if applicable): CC: ~ Signed [facility] Work Phone: 1(349) 331-220807-22-2025 Progress note [facility] Medical Records Department [address] [place] [address] Progress Note - OBGYN 06/22/25 0746 MR#: [id number] Acct: [id number] Name: YOKASTA PRETTY Rep #:[id number] : 1995 29 From: Bettie Blum CNM PCP: BENNETT Lind, [employer] Statu s:REG CLI Location: [id number] Subjective Subjective Patient seen at bedside. C/O [...] 50 50 966.67 / 966.67 Balance 50 50 966.67 / 966.67 Lab / Micro [...] 79.4 H, Lymph % (Auto) 12.8 L, Beaver % (Auto) 6.6, Eos % (Auto) 0.5, [...] Cosigner Signature (if applicable): CC: ~ Signed [facility]07-21-2025 History and physical note Author Bettie Blum [facility] Note Date/Time June 21, 2025 5:15 pm [facility] Medical Records Department [address] [place] [address] OB Triage Physician Note 06/21/25 1709 MR#: [id number] Acct: [id number] Name: YOKASTA PRETTY Rep #:[id number] : 1995 29 From: Bettie Blum CNM PCP: Nighat Munoz, BENNETT, [employer] Statu s:REG CLI Y Location: [address] HPI - General HPI Narrative YOKASTA PRETTY, [...] house current occupational status: employed current occupation: [employer] sexually active: Yes Smoking Status: Current every [...] IV every 24 hours Continuous monitoring 06/21/25 0149 <Electronically signed by Bettie duffy CNM> Date _ Bettie Blum CNM Cosigner Signature (if applicable): Date CC: SHANITA Blum; BENNETT [employer] Nighat Munoz ~ Signed [facility] Work Phone: 1(648) 762-737407-21-2025 Evaluation note* Diagnosis Onset Date Resolution Status Admit Date 31 weeks gestation of acut e June 21, 2025 3:48pm Asthma acute June 21 3:48pm Bipolar disorder acute June 3:48pm Cramping affecting , antepartum acute June 21, 2025 3:48pm Flank pain acute June 21 3:48pm Recurrent UTI (urinary tract infection) complicating acute June 21, 2025 3:48pm [facility] Work Phone: 1(509) 626-642407-21-2025 History and physical note [facility] Medical Records Department [address] [place] [address] OB Triage Physician Note 06/21/25 1709 MR#: [id number] Acct: [id number] Name: YOKASTA PRETTY Rep #:[id number] : 1995 29 From: Bettie Blum CNM PCP: BENNETT Lind, [employer] MANAGERAdria Statu s:REG CLI Y Location: [place] [id number] HPI - General HPI Narrative YOKASTA PRETTY, [...] house current occupational status: employed current occupation: [employer] sexually active: Yes Smoking Status: Current every [...] monitoring 06/21/25 1715 ts CNM> Date _ Bettie Blum CN Cosigner Signature (if applicable): Date CC: [facility] Bettie Blum; [facility] [employer] Nighat Munoz ~ Signed [facility]07-21-2025 Progress note* Quick Notes - Noam Wyman [...] CVA tenderness, h/o pyelo - Sent to [facility] L[facility] for observation for IVF hydration, CBC with diff, Rocephin - Keep scheduled routine follow up Noam Wyman DO [facility]07-21-2025 Miscellaneous Notes* Quick Notes - Noam [...] CVA tenderness, h/o pyelo - Sent to [facility] L[facility]D for observation for IVF hydration, CBC with diff, Rocephin - Keep scheduled routine follow up Noam Wyman DO [facility] Instructions* Patient Instructions* Michelle Florian MA - 06/21/2025 2:09 PM EDT SEQUENTIAL SCREENINGS The [facility] offers sequential screenings for women who [...] testing. It will require an appointment withour electronic technician. This is not an ultrasound performed [...] the above symptoms, contact our office at [phone] and ask to speak with anurse. After hours, you can call doctors registry at [phone] OR call [facility] at [phone] ask to have the doctor online program coordinator paged. If you consider this an emergency, dial 9-1-1 or go to your nearest emergency department. NEED HELP? Are you dealing with a violent or abusive relationship? Are you a victim of rape or sexual assult? Call [facility] ([place]) 24 hour Crisis Hotline: 227.909.8282 or 692-521-5490. MANUAL Your Guide to a Healthy manual is now on-line. Visit [email or web address] to download your free copy [facility] Telephone encounter Note * Telephone Encounter - Emma Lundberg RN - 06/21/2025 12:36 PM EDT Patient scheduled with EDWINA today. Emma Lundberg RN [facility]07-21-2025 Miscellaneous Notes* Telephone Encounter - Emma Lundberg RN - 06/21/2025 12:36 PM EDT Patient scheduled with EDWINA today. Emma Lundberg RN * Telephone Encounter - Kalyn Arredondo RN - 06/21/2025 12:27 PM EDT Left message to call office. Kalyn Arredondo RN * Telephone Encounter - Bettie Blum APRN.CNM - 06/21/2025 12:25 PM EDT Needs appointment. She will need urine sent. Bettie Blum APRN.CNM * Telephone Encounter - Kalyn Arredondo RN - 06/21/2025 11:24 AM EDT Patient 31w1d, next appointment is on 07/02. Currently on Macrobid 100 mg daily. Kalyn Arredondo RN [facility] Telephone encounter Note * Telephone Encounter - Kalyn Arredondo RN - 06/21/2025 12:27 PM EDT Left message to call office. Kalyn Arredondo RN [facility]07-21-2025 Telephone encounter Note* Telephone Encounter - Bettie Blum APRN.CNM - 06/21/2025 12:25 PM EDT Needs appointment. She will need urine sent. Bettie Blum APRN.CNM [facility] Work Phone: 1(906) 977-135507-21-2025 Telephone encounter Note* Telephone Encounter - Kalyn Arredondo RN - 06/21/2025 11:24 AM EDT Patient 31w1d, next appointment is on 07/02. Currently on Macrobid 100 mg daily. Kalyn Arredondo RN [facility]07-16-2025 NoteHNO ID: [id number] Author: KAYLA VAZ MD Service: ? Author Type: Physician [...] Interpretation: Category I and Reactive SIGNATURE: [facility] History of Present illness Narrative* Kayla Vaz MD - 06/16/2025 10:07 AM EDT NST SUMMARY PROVIDER ASSESSMENT AND INTERPRETATION Yokasta Pretty is a 29 year old female, , who is at 30w3d with an CLAUDIO of 08/22/2025, by Last Menstrual Period dating method. Indications for NST: Decreased Movement Baseline: 140 Variability: Moderate Accelerations: Present 15 X 15 Decelerations: None Contractions: TOCO: None Interpretation: Category I and Reactive SIGNATURE: Kayla Oshea MD documented in [facility] encounterC[facility] Progress note* Quick Notes - Kayla Vaz MD - 06/16/2025 10:05 AM EDT DM-Pt doing well. Denies vaginal Bleeding, Leaking fluid, or regular Contractions. Pt reports no FMx 24 hrs Physical Exam: Gen: female in no apparent distress Abd: soft, Gravid. Non tender to palpation. See flow sheet @ 30.3 weeks Assessment & Plan Supervision of high risk in third trimester (HCC) Anemia complicating , third trimester ([facility]) Continue PO iron Obesity affecting in third trimester, unspecified obesity type ([facility]) Growth at 32/36 weeks Orders: NON-STRESS TEST; Standing Hypothyroidism affecting in second trimester ([facility]) Continue synthroid Decreased movements in third trimester, single or unspecified fetus ([facility]) Orders: NON-STRESS TEST; Standing 30 weeks gestation of ([facility]) Kick counts reviewed Rto 2 wks Kayla Oshea MD [facility]07-16-2025 Miscellaneous Notes* Quick Notes - Kayla Vaz MD - 06/16/2025 10:05 AM EDT [...] affecting in third trimester, unspecified obesity type ([facility]) Growth at 32/36 weeks Orders: NON-STRESS TEST; Standing Hypothyroidism affecting in second trimester ([facility]) Continue synthroid Decreased movements in third trimester, single or unspecified fetus ([facility]) Orders: NON-STRESS TEST; Standing 30 weeks gestation of ([facility]) Kick counts reviewed Rto 2 wks Kayla Oshea MD documented in [facility] encounterC[facility] Instructions* Patient Instructions* Naomi Bustamante MA - 06/16/2025 9:38 AM EDT SEQUENTIAL SCREENINGS The [facility] offers sequential screenings for women who [...] testing. It will require an appointment withour electronic technician. This is not an ultrasound performed [...] the above symptoms, contact our office at [phone] and ask to speak with anurse. After hours, you can call doctors registry at [phone] OR call [facility] at [phone] ask to have the doctor online program coordinator paged. If you consider this an emergency, dial 08-02- or go to your nearest emergency department. NEED HELP? Are you dealing with a violent or abusive relationship? Are you a victim of rape or sexual assult? Call [facility] ([place]) 24 hour Crisis Hotline: 254.120.6868 or 105-859-5980. MANUAL Your Guide to a Healthy manual is now on-line. Visit [email or web address] to download your free copy documented in this encounterCleveland [facility]07-07[facility]25 Telephone encounter Note * Telephone Encounter - Katelynn Luciano RN - 06/07/2025 9:53 AM EDT 3rd risk assessment form submitted 06/07/25 Katelynn Luciano RN [facility]07-07-2025 Miscellaneous Notes* Telephone Encounter - Katelynn Luciano RN - 06/07/2025 9:53 AM EDT 3rd risk assessment form submitted 06/07/25 Katelynn Luciano RN documented in this encounterC[facility] Progress note* Quick Notes - Epifanio Sanchez MD - 06/03/2025 10:33 AM EDT KJ - S: Yokasta denies LOF, contractions or vaginal bleeding. O: 28w4d, see flow sheet SENSITIVE EXAM: Sensitive exam not performed. A/P: Assessment & Plan Pyelonephritis complicating , antepartum (HCC) On macrobid suppression. Hypothyroidism affecting in second trimester (HCC) Follows with endo. Continue synthroid. Anemia complicating , third trimester (HCC) 28 weeks gestation of (HCC) 28wk labs & Tdap today. Declines LARC but considering IUD after PP check. Obesity affecting in third trimester, unspecified obesity type (HCC) Orders: OBSTETRIC ULTRASOUND WHI; Future Note given for Job & Family services. Patient has protection order against FOB and is now a single mother. Reviewed PTL & FM precautions. Epifanio Sanchez MD [facility]07-03-2025 Miscellaneous Notes* Quick Notes - Epifanio Sanchez MD - 06/03/2025 10:33 AM EDT KJ - S: Yokasta denies LOF, contractions or vaginal bleeding. O: 28w4d, see flow sheet SENSITIVE EXAM: Sensitive exam not performed. A/P: Assessment & Plan Pyelonephritis complicating , antepartum (HCC) On macrobid suppression. Hypothyroidism affecting in second trimester (HCC) Follows with endo. Continue synthroid. Anemia complicating , third trimester (HCC) 28 weeks gestation of (HCC) 28wk labs & Tdap today. Declines LARC but considering IUD after PP check. Obesity affecting in third trimester, unspecified obesity type (HCC) Orders: OBSTETRIC ULTRASOUND WHI; Future Note given for Job & Family services. Patient has protection order against FOB and is now a single mother. Reviewed PTL & FM precautions. Epifanio Sanchez MD documented in this encounterC[facility] Instructions* Patient Instructions* Mavis Garcia MA - 06/03/2025 10:22 AM EDT SEQUENTIAL SCREENINGS The [facility] offers sequential screenings for women who [...] testing. It will require an appointment withour electronic technician. This is not an ultrasound performed [...] the above symptoms, contact our office at [phone] and ask to speak with anurse. After hours, you can call doctors registry at [phone] OR call [facility] at [phone] ask to have the doctor online program coordinator paged. If you consider this an emergency, dial 8-1-2 or go to your nearest emergency department. NEED HELP? Are you dealing with a violent or abusive relationship? Are you a victim of rape or sexual assult? Call [facility] ([place]) 24 hour Crisis Hotline: 696.286.4816 or 358-623-9765. MANUAL Your Guide to a Healthy manual is now on-line. Visit [email or web address] to download your free copy documented in this encounterC[facility] Telephone encounter Note * Telephone Encounter - Elizabeth Ghosh LPN - 05/21/2025 4:10 PM EDT [employer] message sent to schedule appointment to discuss work concern [facility]06-20-2025 Miscellaneous Notes* Telephone Encounter - Elizabeth Ghosh LPN - 05/21/2025 4:10 PM EDT [employer] message sent to schedule appointment to discuss [...] this at an appointment? documented in this encounterCleveland Clinic [facility]06-[facility]-2025 Telephone encounter Note * Telephone Encounter - Judit Pimentel APRN.CNP - 05/21/2025 3:50 PM EDT I don't have a medical indication to excuse entirely from work right now. Can discuss restrictions at next appointment. Judit Pimentel APRN.CNP [facility]06-20-2025 Telephone encounter Note* Telephone Encounter - Elizabeth Ghosh LPN - 05/21/2025 3:34 PM EDT Ob patient is 26w5d. Will patient need to discuss this at an appointment? [facility]06-18-2025 NoteHNO ID: [id number] Author: ?, ?, ? Service: ? Author Type: ? Type: Progress Notes Filed: 05/19/2025 08:24 Note Text: [facility] History of Present illness Narrative* Harriet Mallory MD - 05/17/2025 1:00 PM EDT thyroid virtual visit: This is a virtual visit encounter with Yokasta Shawn Pretty It required patient-provider interaction for the [...] TSH/ Free T4 ordered for June 11 Harriet Mallory MD documented in this encounterC[facility]06-16-2025 NoteHNO ID: [id number] Author: HARRIET MALLORY MD Service: ? Author Type: Physician [...] TSH/ Free T4 ordered for June 11 Harriet Mallory [facility]06-05-2025 Miscellaneous Notes* Quick Notes - Judit Pimentel APRN.SLOT FLOOR ATTENDANT - 05/06/2025 8:00 AM EDT EH - [...] high risk in second trimester, antepartum (HCC) - ICD9: V23.9, ICD10: O09.92 (primary diagnosis) - Continue PNV and LDA 2. 24 weeks gestation of (HCC) - ICD9: V22.2, ICD10: Z3A.24 - GTT, CBC, RPR next visit 3. Pyelonephritis complicating , antepartum ([facility]) - ICD9: 646.63, 590.80, ICD10: O23.00 [...] of 4. Hypothyroidism affecting in second trimester ([facility]) - ICD9: 648.13, 244.9, ICD10: O99.282, E03.9 - TSH elevated 4 weeks ago, Synthroid dose adjusted. Taking 100 mcg daily. - Repeat labs today 5. Obesity affecting in second trimester, unspecified obesity type ([facility]) - ICD9: 649.13, ICD10: O99.212 - Pre BMI 41 - Plan for growth and then weekly NSTs starting at 32 weeks. 6. Anemia complicating , second trimester ([facility]) - ICD9: 648.23, 285.9, ICD10: O99.012 - 10.4 hemoglobin. - Start oral iron Pruritus of in second trimester ([facility]) - ICD9: 646.83, 698.9, ICD10: O99.712, L29.9 - Generalized, but does note in palms - Disrupts sleep, trial Benadryl - COMPREHENSIVE METABOLIC PANEL - BILE ACIDS, TOTAL PTL precautions reviewed. RTO in 4 weeks or sooner as needed. Judit Pimentel APRN.CNP documented in this encounterC[facility] Progress note* Quick Notes - Judit [...] of high risk in second trimester, antepartum ([facility]) - ICD9: V23.9, ICD10: O09.92 (primary diagnosis) - Continue PNV and LDA 2. 24 weeks gestation of ([facility]) - ICD9: V22.2, ICD10: Z3A.24 - GTT, CBC, RPR next visit 3. Pyelonephritis complicating , antepartum ([facility]) - ICD9: 646.63, 590.80, ICD10: O23.00 [...] of 4. Hypothyroidism affecting in second trimester ([facility]) - ICD9: 648.13, 244.9, ICD10: O99.282, E03.9 - TSH elevated 4 weeks ago, Synthroid dose adjusted. Taking 100 mcg daily. - Repeat labs today 5. Obesity affecting in second trimester, unspecified obesity type ([facility]) - ICD9: 649.13, ICD10: O99.212 - Pre BMI 41 - Plan for growth and then weekly NSTs starting at 32 weeks. 6. Anemia complicating , second trimester ([facility]) - ICD9: 648.23, 285.9, ICD10: O99.012 - 10.4 hemoglobin. - Start oral iron Pruritus of in second trimester ([facility]) - ICD9: 646.83, 698.9, ICD10: O99.712, L29.9 - Generalized, but does note in palms - Disrupts sleep, trial Benadryl - COMPREHENSIVE METABOLIC PANEL - BILE ACIDS, TOTAL PTL precautions reviewed. RTO in 4 weeks or sooner as needed. Judit Pimentel APRN.SLOT FLOOR ATTENDANT [facility]05-28-2025 NoteHNO ID: [id number] Author: EDOUARD ANDUJAR MD Service: Nursing Author [...] NST OBJECTIVE FINDINGS PER NURSE: Start Time: 08 (04/28/25 0850 : Becky Ren, STACIA) Complete Time: 0850 (04/28/25 0850 : Becky Ren, STACIA) Indications: Other: Comment (pyelonephritis) (04/28/25 0850 : Becky Ren, STACIA) Patient Reason For: monitor baby (04/28/25 0850 : Becky Ren, STACIA) NST Explanation: Procedure Explained, Monitor Explained, Verbalizes Understanding (04/28/25 0850 : Becky Ren RN) Acoustic Stimulator: No (04/28/25 0850 : Becky Ren RN) Interventions: Other (See Comment) (US adjusted) (04/28/25 0850 : Becky Ren RN) MONITORING/ASSESSMENT: Baseline: 145 bpm (04/28/25 0850 : Becky Ren RN) Variability: Minimal (detectable but < or equal to 5 bpm) (04/28/25 0850 : Becky Ren RN) Accelerations: Absent (04/28/25 0850 : Becky Ren RN) Decelerations: Decelerations: None (04/28/25 0850 : Becky Ren RN) Contractions: Not present (04/28/25 0850 : Becky Ren RN) Frequency: Above information forwarded to Dr. Andujar (04/28/25 0850 : Becky Ren RN) for final review and interpretation. SIGNATURE: Becky Ren RN PATIENT NAME: Yokasta Pretty DATE: April 28, 2025 TIME: 9:14 [facility]05-28-2025 NoteHNO ID: [id number] Author: EDOUARD ANDUJAR MD Service: Obstetrics Author Type: Resident Type: Progress Notes Filed: 04/28/2025 09:11 Note Text: Attestation signed by Edouard Andujar MD at 04/28/2025 9:11 AM [facility] Attending Addendum: I have seen, evaluated and [...] RN, Patient. Assessment AND Plan Pyelonephritis affecting ([facility]) - Admitted 04/24 in the setting [...] discharge today Obesity affecting in second trimester ([facility]) - BMI 38 - SCDs ordered in bed Anxiety disorder affecting , antepartum ([facility]) - Denies any current medication management - Mood stable Hypothyroidism affecting in second trimester ([facility]) - Synthroid 100 mcg daily 23 weeks gestation of ([facility]) NST daily Defer Jas MIMS (more content not included)...[facility] 04-27-2025 NoteHNO ID: [id number] Author: EDOUARD ANDUJAR MD Service: Nursing Author [...] Complete Time: 1013 (04/27/25 1013 : Halina Quintanilla RN) Indications: Other: Comment (Pyleonephrtis) (04/27/25 1013 : Halina Quintanilla, STACIA) Patient Reason For: monitor baby (04/27/25 1013 : Halina Quintanilla, RN) NST Explanation: Verbalizes Understanding (04/27/25 1013 : Halina Quintanilla, STACIA) Acoustic Stimulator: Interventions: MONITORING/ASSESSMENT: Baseline: 145 bpm (04/27/25 1013 : Halina Quintanilla, RN) Variability: Moderate (6-25 bpm) (04/27/25 1013 : Halina Quintanilla, RN) Accelerations: Absent (04/27/25 1013 : Halina Quintanilla, RN) Decelerations: Contractions: Not present (04/27/25 1013 : Halina Quintanilla, RN) Frequency: Above information forwarded to Dr. Andujar (04/27/25 1013 : Halina Quintanilla, RN) for final review and interpretation. SIGNATURE: Halina Quintanilla RN PATIENT NAME: Yokasta Pretty DATE: April 27, 2025 TIME: 10:37 [facility]05-27-2025 NoteHNO ID: [id number] Author: EDOURAD ANDUJAR MD Service: Obstetrics Author Type: Resident Type: Progress Notes Filed: 04/27/2025 09:34 Note Text: Attestation signed by Edouard Andujar MD at 04/27/2025 9:34 AM M Attending Addendum: I have seen, evaluated and [...] patient declining them, encoura (more content not included)...[facility]05-26-2025 NoteHNO ID: [id number] Author: SIMEON SOLIS DO Service: Obstetrics Author Type: Resident Type: Plan of Care Filed: 04/26/2025 15:50 Note Text: Patient has now voided twice in the past hour, 300 mL total. Post void bladder scan at less than 130 cc. Not concerned for urinary retention at this time. UOP improving to 100 cc/hr from 50 cc/hr. Discussed with Dr. Duque, Dr. Campbell. Simeon Solis [facility]OD[facility]25 NoteHNO ID: [id number] Author: BLAINE COTTON MD Service: Obstetrics Author Type: Physician Type: Procedures Filed: 04/28/2025 05:59 Note Text: OBSTETRICS NST SUMMARY SERVICE DATE: April 26, 2025 The patient is a 29 year old female, , who is at 23w1d with an CLAUDIO of 08/22/2025, by Last Menstrual Period dating method. NST OBJECTIVE FINDINGS PER NURSE: Start Time: 1126 (04/26/25 1210 : Tammie Douglas RN) Complete Time: 1210 (04/26/25 1210 : Tammie Douglas RN) Indications: Other: Comment (pyelo) (04/26/25 1210 : Tammie Douglas RN) Patient Reason For: monitor baby (04/26/25 1210 : Tammie Douglas RN) NST Explanation: Procedure Explained, Monitor Explained, Verbalizes Understanding (04/26/25 1210 : Tammie Douglas RN) Acoustic Stimulator: Interventions: MONITORING/ASSESSMENT: Baseline: 140 bpm (04/26/25 1210 : Tammie Douglas RN) Variability: Moderate (6-25 bpm) (04/26/25 1210 : Tammie Douglas RN) Accelerations: Present (04/26/25 1210 : Tammie Douglas RN) Decelerations: Decelerations: None (04/26/25 1210 : Tammie Douglas RN) Contractions: Not present (04/26/25 1210 : Tammie Douglas RN) Frequency: Above information forwarded to Dr cotton (04/26/25 1210 : Tammie Douglas RN) for final review and interpretation. Cat 1 Blaine Cotton MD SIGNATURE: Tammie Douglas RN PATIENT NAME: Yokasta Pretty DATE: April 26, 2025 TIME: 12:24 [facility]05-26-2025 NoteHNO ID: [id number] Author: NOAM DUQUE MD Service: Obstetrics Author [...] monitor urine output closely. Noam Duque MD RELISH BLENDER PGY-3 April 26, 2025 12:13 [facility]05-26-2025 NoteHNO ID: [id number] Author: NOAM DUQUE MD Service: Obstetrics Author [...] Campbell on MFM rounds. Noam Duque MD RELISH BLENDER PGY-3 April 26, 2025 8:51 [facility]05-26-2025 NoteHNO ID: [id number] Author: RADHA CAMPBELL MD Service: Maternal Medicine Author Type: Resident Type: Progress Notes Filed: 04/26/2025 15:39 Note Text: Attestation signed by Radha Campbell MD at 04/26/2025 3:39 PM Maternal- [...] tomorrow but would like to avoid this Radha Campbell MD OBSTETRICS ANTEPARTUM PROGRESS NOTE SERVICE DATE: 04/26/2025 SERVICE TIME: 6:42 AM 29 year old admitted 04/24 observation/pain control in setting of recurrent pyelonephritis with possible nephrolithiasis. Assessment AND Plan Pyelonephritis affecting (HCC) - [...] at discharge Obesity affecting in second trimester ([facility]) - BMI 38 - SCDs ordered in bed, patient declining them, encourage use due to high risk of DVT Anxiety disorder affecting , antepartum ([facility]) - Denies any current medication management - Mood stable Hypothyroidism affecting in second trimester ([facility]) - Synthroid 75 mg daily Rubella non-immune status, antepartum ([facility]) - Plan for vaccination Elevated blood pressure reading in office without diagnosis of hypertension - Isolated mild range blood pressure in setting of pain from pyelonephritis on 04/09 - Normotensive this admission - Does not meet diagnostic criteria for hypertensive disease of as has not had elevated blood pressures >4 hours apa (more content not included)... [facility]05-26-2025 NoteHNO ID: [id number] Author: CARLITOS FORD MD Service: Obstetrics Author [...] admission. 04/25/25 0332 04/25/25 0739 04/25/25 1124 04/25/25 1925 BP: 96/50 115/65 111/54 104/63 Pulse: 85 [...] prn Carlitos Ford MD OBGYN PGY-3 Pager #[phone] April 26, 2025 12:22 [facility]05-25-2025 NoteHNO ID: [id number] Author: GALINA LEONG MD Service: Obstetrics Author Type: Physician Type: Procedures Filed: 04/25/2025 13:18 Note Text: OBSTETRICS NST SUMMARY SERVICE DATE: April 25, 2025 The patient is a 29 year old female, , who is at 23w0d with an CLAUDIO of 08/22/2025, by Last Menstrual Period dating method. NST OBJECTIVE FINDINGS PER NURSE: Start Time: 1129 (04/25/25 1200 : Tammie Douglas, STACIA) Complete Time: 1200 (04/25/25 1200 : Tammie Douglas, RN) Indications: Other: Comment (pyelo) (04/25/25 1200 : Tammie Douglas, RN) Patient Reason For: monitor baby (04/25/25 1200 : Tammie Douglas, RN) NST Explanation: Procedure Explained, Monitor Explained, Verbalizes Understanding (04/25/25 1200 : Tammie Douglas, RN) Acoustic Stimulator: Interventions: MONITORING/ASSESSMENT: Baseline: 140 bpm (04/25/25 1200 : Tammie Douglas RN) Variability: Moderate (6-25 bpm) (04/25/25 1200 : Tammie Douglas RN) Accelerations: Absent (04/25/25 1200 : Tammie Douglas RN) Decelerations: Decelerations: (!) Variable (04/25/25 1200 : Tammie Douglas RN) Decel Frequency: Intermittent (04/25/25 1200 : Tammie Douglas RN) Contractions: Not present (04/25/25 1200 : Tammie Douglas RN) Frequency: Above information forwarded to Dr. Leong (04/25/25 1200 : Tammie Douglas RN) for final review and interpretation. SIGNATURE: Tammie Douglas RN PATIENT NAME: Yokasta Pretty DATE: April 25, 2025 TIME: 12:20 PM PROVIDER INTERPRETATION: Category I reassuring for gestation age. Broken variable noted and likely due to movement off monitor rather than true deceleration SIGNATURE: Galina Leong MD DATE: April 25, 2025 TIME: 1:17 [facility]05-25-2025 NoteHNO ID: [id number] Author: JAMES LEARY DO Service: Maternal Medicine Author Type: Resident [...] urine culture Obesity affecting in second trimester ([facility]) - BMI 38 - SCDs in bed Anxiety disorder affecting , antepartum ([facility]) - Denies any current medication management - Mood stable Hypothyroidism affecting in second trimester ([facility]) - Synthroid 75 mg daily Rubella non-immune status, antepartum ([facility]) - Plan for vaccination Elevated blood pressure reading in office without diagnosis of hypertension - Isolated mild range blood pressure in setting of pain from pyelonephritis on 04/09 - Normotensive this admission - Does not meet diagnostic criteria for hypertensive disease of as has not had elevated blood pressures >4 hours apart - Asymptomatic Prematurity of fetus ([facility]) - care with [facility] Christine SALMERON - 20w4d growth ultrasound [...] Most recent labs and imaging results. SIGNATURE: James Leary DO PATIENT NAME: Yokasta Pretty DATE: April 25, 2025 TIME: 6:42 [facility]05-24-2025 NoteHNO ID: [id number] Author: ASTER PERALTA DO Service: Obstetrics Author [...] chest pain ABD: Positive for abdominal pain TECHNICAL SOLUTIONS DIRECTOR: Negative for abnormal vaginal bleeding, abnormal vaginal [...] was discussed with the patient or authorized it sales representative. The patient or authorized it sales representative has agreed to proceed with the sensitive [...] Komal/uL - WBC >25/h (more content not included)...[facility]05-14-2025 Progress note* Quick Notes - Nighat Maolney APRN.CNM - 04/14/2025 1:01 PM EDT JOLIE-S: Yokasta Pretty is a 29 year old female who presents at 21w3d with CLAUDIO:08/22/2025, by Last Menstrual Period for a problem visit. Denies headache, visual changes, chest pain, shortness of breath, vaginal bleeding, leakage of fluid, or dysuria. ON 04/09/25 seen at [facility] for pyelonephritis. IV rocephin and then started [...] call RTO as scheduled Nighat Maloney APRN.CNM [facility]05-14-2025 Miscellaneous Notes* Quick Notes - Nighat Maloney APRN.CNM - 04/14/2025 1:01 PM EDT SIMEONS: Yokasta Pretty is a 29 year old female who presents at 21w3d with CLAUDIO:08/22/2025, by Last Menstrual Period for a problem visit. Denies headache, visual changes, chest pain, shortness of breath, vaginal bleeding, leakage of fluid, or dysuria. ON 04/09/25 seen at [facility] for pyelonephritis. IV rocephin and then started [...] scheduled Nighat Maloney APRN.CNM documented in this encounterC[facility]05-[facility]-2025 Instructions* Patient Instructions* Michelle Florian MA - 04/14/2025 12:56 PM EDT SEQUENTIAL SCREENINGS The [facility] offers sequential screenings for women who [...] testing. It will require an appointment withour electronic technician. This is not an ultrasound performed [...] the above symptoms, contact our office at [phone] and ask to speak with anurse. After hours, you can call doctors registry at [phone] OR call [facility] at [phone] ask to have the doctor online program coordinator paged. If you consider this an emergency, dial [phone] or go to your nearest emergency department. NEED HELP? Are you dealing with a violent or abusive relationship? Are you a victim of rape or sexual assult? Call [facility] ([place]) 24 hour Crisis Hotline: 120.232.6540 or 796-392-9585. MANUAL Your Guide to a Healthy manual is now on-line. Visit [email or web address] to download your free copy documented in this encounterCleveland [facility]05-[facility]-2025 NoteHNO ID: [id number] Author: TAMMIE VASQUEZ MD Service: Maternal Medicine Author Type: Resident Type: Progress Notes Filed: 04/11/2025 11:18 Note Text: Attestation signed by Tammie Vasquez MD at 04/11/2025 11:18 AM M Attending Note I have reviewed the [...] antibiotics for the duration of the . Tammie Vasquez MD I have performed the substantive portion including [id number] and relevant services for a total of < 30 minutes OBSTETRICS ANTEPARTUM PROGRESS NOTE SERVICE DATE: 04/11/2025 SERVICE TIME: 6:46 AM 29 year old EGA:21w0d admitted for pyelonephritis . Plan of care discussed with: Provider, RN, Patient. Assessment AND Plan Pyelonephritis complicating , antepartum ([facility]) - Admitted to medical unit in the [...] treatment and suppression 20 weeks gestation of ([facility]) - care with [facility] Christine SALMERON - Last growth ultrasound at 20w4d showing normal with anterior placenta, adequate cervical length with no funneling - PNV daily - Daily doptones Obesity affecting in second trimester ([facility]) - BMI 38 - SCDs in bed Elevated blood pressure reading in office without diagnosis of hypertension - Isolated mild range blood pressure in setting of pain from pyelonephritis on 04/09 - Asymptomatic Hypothyroidism affecting in second trimester ([facility]) - Synthroid 75 mg daily Anxiety disorder affecting , antepartum ([facility]) - Denies any current medication management [...] Pretty DATE: April 11, 2025 TIME: 6:46 [facility]05-10-2025 NoteHNO ID: [id number] Author: CATIE TREJO MD Service: Obstetrics Author Type: Resident [...] Will transition to PO antibiotics upon discharge. Catie Trejo MD RELISH BLENDER PGY-2[facility] NoteHNO ID: [id number] Author: TAMMIE VASQUEZ MD Service: Maternal Medicine Author Type: Resident Type: Progress Notes Filed: 04/10/2025 13:33 Note Text: Attestation signed by Tammie Vasquez MD at 04/10/2025 1:33 PM MFM Attending Note I have reviewed the progress note obtained and documented by the resident and I personally participated in the chou components. I have discussed the case and management of the patient's care. I agree with the resident's findings and plan of care as documented below. Patient reports continued pain this morning, currently 710, not relieved by tylenol. Will give oxycodone prn for adjunctive pain relief. Continue to monitor with plan for d/c when symptomatic improved given that she has been afebrile. Tammie Vasquez MD OBSTETRICS ANTEPARTUM PROGRESS NOTE SERVICE DATE: 04/10/2025 SERVICE TIME: 7:30 AM 29 year old EGA:20w6d admitted for pyelonephritis . Plan of care discussed with: Provider, RN, Patient. Assessment AND Plan Pyelonephritis complicating , antepartum ([facility]) - Admitted to medical unit in the [...] treatment and suppression 20 weeks gestation of ([facility]) - care with [facility] Christine SALMERON - Last growth ultrasound at 20w4d showing normal with anterior placenta, adequate cervical length with no funneling - PNV daily - Daily doptones Obesity affecting in second trimester ([facility]) - BMI 38 - SCDs in bed Elevated blood pressure reading in office without diagnosis of hypertension - Isolated mild range blood pressure in setting of pain from pyelonephritis on 04/09 - Asymptomatic Hypothyroidism affecting in second trimester ([facility]) - Synthroid 75 mg daily Anxiety disorder affecting , antepartum ([facility]) - Denies any current medication management [...] Most recent labs and imaging results. SIGNATURE: Catie Trejo MD PATIENT NAME: Yokasta Pretty DATE: April 10, 2025 TIME: 7:32 [facility]05-09-2025 NoteHNO ID: [id number] Author: CHUY KOO DO Service: Obstetrics Author Type: Resident Type: Progress Notes Filed: 04/10/2025 06:40 Note Text: Attestation signed by Chuy oKo DO at 04/10/2025 6:40 AM I saw and evaluated the patient. Discussed with the resident and agree with resident's findings and plan as documented in the resident's note. Patient admitted to [facility] service for pyelonephritis Chuy Koo DO OBSTETRICS OB ED PROGRESS NOTE [...] was discussed with the patient or authorized it sales representative. The patient or authorized it sales representative has agreed to proceed with the sensitive [...] 09, 2025 TIME: 8:10 PM [facility]CONTA[id number] encounter Note* Telephone Encounter - Kalyn Arredondo RN - 04/09/2025 2:26 PM EDT Patient notified and voiced understanding of below information and instructions. Patient will have her mom take her to [facility]. Kalyn Arredondo RN [facility]05-09-2025 Miscellaneous Notes* Telephone Encounter - Kalyn Arredondo RN - 04/09/2025 2:26 PM EDT Patient notified and voiced understanding of below information and instructions. Patient will have her mom take her to [facility]. Kalyn Arredondo RN * Telephone Encounter - Kalyn Arredondo RN - 04/09/2025 2:25 PM EDT Images from the original note were not included. Judit Pimentel APRN.CNP 04/09/25 12:53 PM Note Please call patient. I discussed with online program coordinator provider Alex Maloney. Per JOLIE, since patient is pre term and symptomatic, JOLIE recommends going to [facility] for evaluation to rule out kidney stone/pyelonephritis. Judit Pimentel APRN.SLOT FLOOR ATTENDANT * Result Encounter Note - Judit Pimentel APRN.CNP - 04/09/2025 12:51 PM EDT Please call patient. I discussed with online program coordinator provider Alex Maloney. Per JOLIE, since patient is pre term and symptomatic, JOLIE recommends going to [facility] for evaluation to rule out kidney stone/pyelonephritis. Judit Pimentel APRN.CNP documented in this encounterC[facility] Telephone encounter Note * Telephone Encounter - Kalyn Arredondo RN - 04/09/2025 2:25 PM EDT Images from the original note were not included. Judit Pimentel APRN.CNP 04/09/25 12:53 PM Note Please call patient. I discussed with online program coordinator provider Alex Maloney. Per JOLIE, since patient is pre term and symptomatic, JOLIE recommends going to [facility] for evaluation to rule out kidney stone/pyelonephritis. Judit Pimentel APRN.SLOT FLOOR ATTENDANT [facility]05-09-2025 Progress note* Result Encounter Note - Judit Pimentel APRN.CNP - 04/09/2025 12:51 PM EDT Please call patient. I discussed with online program coordinator provider Alex Maloney. Per JOLIE, since patient is pre term and symptomatic, JOLIE recommends going to [facility] for evaluation to rule out kidney stone/pyelonephritis. Judit Pimentel APRN.CNP [facility]05-08-2025 NoteHNO ID: [id number] Author: JUDIT PIMENTEL APRN.CNP Service: ? Author [...] Supervision of high risk in second trimester ([facility]) - ICD9: V23.9, ICD10: O09.92 (primary diagnosis) - Continue PNV and LDA - Discontinue Metformin 2. 20 weeks gestation of ([facility]) - ICD9: V22.2, ICD10: Z3A.20 - [...] water 4. Hypothyroidism affecting in second trimester ([facility]) - ICD9: 648.13, 244.9, ICD10: O99.282, E03.9 - Continue Synthroid and recheck labs today 5. Obesity affecting in second trimester, unspecified obesity type ([facility]) - ICD9: 649.13, ICD10: O99.212 - Pre BMI 41 - Plan for growth and then weekly NSTs starting at 32 weeks. PTL precautions reviewed. RTO in 4 weeks or sooner as needed. Judit Pimentel APRN.CNPKing[facility] [place]05-08-2025 History of Present illness Narrative* Judit Pimentel APRN.CNP - 04/08/2025 9:02 AM EDT EH - S: Yokasta is a 29 year old female who presents at 20w4d for a routine visit. Feeling movement. Denies headache, visual changes, chest pain, shortness of breath, vaginal bleeding or leakage of fluid. Reports dysuria. O: See flow sheet Gen: No apparent distress Abd: Gravid, nontender ASSESSMENT/PLAN: 1. Supervision of high risk in second trimester ([facility]) - ICD9: V23.9, ICD10: O09.92 (primary diagnosis) - Continue PNV and LDA - Discontinue Metformin 2. 20 weeks gestation of ([facility]) - ICD9: V22.2, ICD10: Z3A.20 - [...] water 4. Hypothyroidism affecting in second trimester ([facility]) - ICD9: 648.13, 244.9, ICD10: O99.282, E03.9 - Continue Synthroid and recheck labs today 5. Obesity affecting in second trimester, unspecified obesity type ([facility]) - ICD9: 649.13, ICD10: O99.212 - Pre BMI 41 - Plan for growth and then weekly NSTs starting at 32 weeks. PTL precautions reviewed. RTO in 4 weeks or sooner as needed. Judit Pimentel APRN.FRANK documented in this encounterCleveland [facility]05-08-2025 Instructions* Patient Instructions* Michelle Florian MA -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 October 15, 2023 2:37pm [facility] Medical Records Department [address] [place] [address] H&P Exam - RELISH BLENDER 10/15/23 1437 MR#: [id number] Acct: [id number] Name: YOKASTA PRETTY Rep #:[id number] : 1995 27 From: Nighat TOLBERT PCP: Dr. Magnolia Chen MD Status:ADM IN Location: [place] [address] HPI - General General Date of Admission: [...] Thyroid disorder Trauma Wears glasses Home Medications lyvcogwr-asz-Wk-FA 1 mg tablet 1 tab PO DAILY [...] house current occupational status: employed current occupation: [employer] sexually active: Yes Smoking Status: Former [...] 11. Notified Dr. Sanchez of patient status. 10/15/231728 <Electronically signed by Nighat Maloney CNM> Cosigner Signature (if applicable): CC: SHANITA Maloney; Dr. Magnolia Chen MD~ Signed [facility] Work Phone: 1(119) 482-279411-14-2023 Miscellaneous Notes* Telephone Encounter - Emma Lundberg RN - 10/15/2023 10:04 AM EST 37w6d Called stating around 0915 today she had large gush of clear fluid. Since then she has fluid with movement. Has felt movement since rupture. Going straight to L&D. L&D notified. Emma Lundberg RN documented in this encounterCleveland Clinic [facility]11-13-2023 History of Present illness Narrative* Roxanne Rowell MD - 10/14/2023 9:08 AM EST NST SUMMARY PROVIDER ASSESSMENT AND INTERPRETATION Yokasta Pretty is a 27 year old female, , who is at 37w5d with an CLAUDIO of 10/30/2023, by LastMenstrual Period dating method. Indications for NST: Obesity Baseline: 135 Variability: Moderate Accelerations: Present 15 X 15 Decelerations: None Contractions: TOCO: Irregular Interpretation: Category I and Reactive SIGNATURE: Roxanne Rowell MD documented in this encounterCleveland Clinic [facility] Hospital11-13-2023 Miscellaneous Notes* Quick Notes - Roxanne Rowell MD - 10/14/2023 9:07 AM EST [...] monitor Bacturia/UTI during , cont. macrobid prophylaxis Roxanne Rowell M.D. documented in this encounterCleveland Clinic Med[facility] Hospital11-13-2023 Instructions* Patient Instructions* Mavis Garcia Ma - 10/14/2023 9:04 AM EST SEQUENTIAL SCREENINGS [facility] offers sequential screenings for women who [...] testing. It will require an appointment withour electronic technician. This is not an ultrasound performed [...] the above symptoms, contact our office at [phone] and ask to speak with anurse. After hours, you can call doctors registry at [phone] OR call [facility] at [phone] ask to have the doctor online program coordinator paged. If you consider this an emergency, dial 7-7-9 or go to your nearest emergency department. NEED HELP? Are you dealing with a violent or abusive relationship? Are you a victim of rape or sexual assult? Call [facility] ([place]) 24 hour Crisis Hotline: 897.488.9242 or 926-830-4979. MANUAL Your Guide to a Healthy manual is now on-line. Visit [email or web address] to download your free copy documented in this encounterCleveland Clinic [facility]11-06-2023 History of Present illness Narrative* Roxanne Rowell MD - 10/07/2023 10:26 AM EST NST SUMMARY PROVIDER ASSESSMENT AND INTERPRETATION Yokasta Pretty is a 27 year old female, , who is at 36w5d with an CLAUDIO of 10/30/2023, by LastMenstrual Period dating method. Indications for NST: Obesity Baseline: 140 Variability: Moderate Accelerations: Present 15 X 15 Decelerations: None Contractions: TOCO: no regular ctxs Interpretation: Category I and Reactive SIGNATURE: Roxanne Rowell MD documented in this encounterCleveland Clinic [facility] Hospital11-06-2023 Miscellaneous Notes* Quick Notes - Roxanne Rowell MD - 10/07/2023 10:24 AM EST RR- VB No. LOF No. CTXS yes, irreg . Movement: present. Other c/o: No. Medication list reviewed. Physical Exam See Flow Sheet Abd: soft, nontender, gravid Ext: edema: Trace A/P 36w5d Estimated Date of Delivery: 10/30/23 maternal obesity, US today, BPP was 05/09, NSt reactive so 07/11. Kick counts f/u in 1 week or prn On macrobid for UTI prevention r/b/a to induction at 39 weeks reviewed and she desires to proceed.. Roxanne Rowell M.D. documented in this encounterCleveland Clinic [facility]11-06-2023 Instructions* Patient Instructions* Mavis Garcia Ma - 10/07/2023 9:46 AM EST SEQUENTIAL SCREENINGS [facility] offers sequential screenings for women who [...] testing. It will require an appointment withour electronic technician. This is not an ultrasound performed [...] the above symptoms, contact our office at [phone] and ask to speak with anurse. After hours, you can call doctors registry at [phone] OR call [facility] at [phone] ask to have the doctor online program coordinator paged. If you consider this an emergency, dial 2-1-4 or go to your nearest emergency department. NEED HELP? Are you dealing with a violent or abusive relationship? Are you a victim of rape or sexual assult? Call [facility] ([place]) 24 hour Crisis Hotline: 377.161.8019 or 594-767-5799. MANUAL Your Guide to a Healthy manual is now on-line. Visit [email or web address] to download your free copy documented in this encounterCleveland Clinic [facility]11-03-2023 Miscellaneous Notes* Quick Notes - Nighat Maloney APRN.SHANITA - 10/04/2023 4:56 PM EDT JOLIE-S: Yokasta [...] presence of amniotic fluid. Lab Address: Ob/gynecology [address] [facility] [address] Dept: [phone] Provider: Nighat Maloney APRN.CNM ASSESSMENT/PLAN: 1. Supervision of high risk in third trimester 2. 36 weeks gestation of P: 1) PTL precautions reviewed and when to call 2) RTO as scheduled. Nighat Maloney APRN.CNM documented in this encounterCleveland Clinic [facility] Hospital11-03-2023 Instructions* Patient Instructions* Quinten Issa Cma - 10/04/2023 3:27 PM EDT SEQUENTIAL SCREENINGS [facility] offers sequential screenings for women who [...] testing. It will require an appointment withour electronic technician. This is not an ultrasound performed [...] the above symptoms, contact our office at [phone] and ask to speak with anurse. After hours, you can call doctors registry at [phone] OR call [facility] at [phone] ask to have the doctor online program coordinator paged. If you consider this an emergency, dial 9--1 or go to your nearest emergency department. NEED HELP? Are you dealing with a violent or abusive relationship? Are you a victim of rape or sexual assult? Call [facility] ([place]) 24 hour Crisis Hotline: 508.755.1730 or 352-500-6767. MANUAL Your Guide to a Healthy manual is now on-line. Visit [email or web address] to download your free copy documented in this encounterCleveland Clinic [facility]10-31-2023 History of Present illness Narrative* Roxanne Rowell MD - 10/01/2023 11:16 AM EDT NST SUMMARY PROVIDER ASSESSMENT AND INTERPRETATION Yokasta Pretty is a 27 year old female, , who is at 35w6d with an CLAUDIO of 10/30/2023, by LastMenstrual Period dating method. Indications for NST: Obesity Baseline: 140 Variability: Moderate Accelerations: Present 15 X 15 Decelerations: Variable Contractions: TOCO: None Interpretation: Category I aftyer one variable and Reactive SIGNATURE: Roxanne Rowell MD documented in this encounterCleveland Clinic [facility] Hospital10-31-2023 Miscellaneous Notes* Quick Notes - Roxanne Rowell MD - 10/01/2023 11:15 AM EDT RR- VB No. LOF No. CTXS irreg . Movement: present. Other c/o: No. Medication list reviewed. Physical Exam See Flow Sheet Abd: soft, nontender, gravid Ext: edema: Trace , 2+ DTRs, no clonus A/P 35w6d Estimated Date of Delivery: 10/30/23 Labs: GBS done kick counts growth scan next week NST reactive. Roxanne Rowell M.D. documented in this encounterCleveland Clinic [facility] Hospital10-31-2023 Instructions* Patient Instructions* Mavis Garcia Ma - 10/01/2023 10:33 AM EDT SEQUENTIAL SCREENINGS [facility] offers sequential screenings for women who [...] testing. It will require an appointment withour electronic technician. This is not an ultrasound performed [...] the above symptoms, contact our office at [phone] and ask to speak with anurse. After hours, you can call doctors registry at [phone] OR call [facility] at [phone] ask to have the doctor online program coordinator paged. If you consider this an emergency, dial 1-5- or go to your nearest emergency department. NEED HELP? Are you dealing with a violent or abusive relationship? Are you a victim of rape or sexual assult? Call [facility] ([facility] 24 hour Crisis Hotline: 488.856.1718 or 436-646-8576. MANUAL Your Guide to a Healthy manual is now on-line. Visit [email or web address] to download your free copy documented in this encounterCleveland Clinic [facility] Hospital10-27-2023 Miscellaneous Notes* Telephone Encounter - Hannah Haas RN - 09/27/2023 9:49 AM EDT Signed and faxed. Hannah Haas RN * Telephone Encounter - Hannah Haas RN - 09/27/2023 8:05 AM EDT Written order received from [facility] and to office to sign. Hannah Haas RN documented in this encounterCleveland Clinic [facility]10-23-2023 History of Present illness Narrative* Roxanne Rowell MD - 09/23/2023 9:51 AM EDT NST SUMMARY PROVIDER ASSESSMENT AND INTERPRETATION Yokasta Pretty is a 27 year old female, , who is at 34w5d with an CLAUDIO of 10/30/2023, by LastMenstrual Period dating method. Indications for NST: Obesity Baseline: 140 Variability: Moderate Accelerations: Present 15 X 15 Decelerations: None Contractions: TOCO: None Interpretation: Category I and Reactive SIGNATURE: Roxanne Rowell MD documented in this encounterCleveland Clinic Med[facility] Hospital10-23-2023 Miscellaneous Notes* Quick Notes - Roxanne Rowell MD - 09/23/2023 9:48 AM EDT [...] leave on daily prophylaxis for remainder of Roxanne Rowell M.D. documented in this encounterCleveland Clinic [facility] Hospital10-23-2023 Instructions* Patient Instructions* Mavis Garcia Ma - 09/23/2023 9:31 AM EDT SEQUENTIAL SCREENINGS [facility] offers sequential screenings for women who [...] testing. It will require an appointment withour electronic technician. This is not an ultrasound performed [...] the above symptoms, contact our office at [phone] and ask to speak with anurse. After hours, you can call doctors registry at [phone] OR call [facility] at [phone] ask to have the doctor online program coordinator paged. If you consider this an emergency, dial 9-1-5 or go to your nearest emergency department. NEED HELP? Are you dealing with a violent or abusive relationship? Are you a victim of rape or sexual assult? Call [facility] ([facility] 24 hour Crisis Hotline: 497.967.4089 or 631-583-9778. MANUAL Your Guide to a Healthy manual is now on-line. Visit [email or web address] to download your free copy documented in this encounterCleveland Clinic [facility]10-13-2023 Miscellaneous Notes* Telephone Encounter - Hannah Haas RN - 09/13/2023 10:27 AM EDT Please review urine culture result. HANNAH HAAS, RN documented in this encounterCleveland Clinic Med[facility] Hospital10-11-2023 Miscellaneous Notes* Result Encounter Note - Roxanne Rowell MD - 09/11/2023 3:37 PM EDT Anatomy ultrasound reviewed. No abnormalities identified. Follow up as clinically indicated. Pleaseplace copy in ob chart. Roxanne Rowell MD documented in this encounterCleveland Clinic Med[facility] Hospital10-11-2023 Miscellaneous Notes* Quick Notes - Roxanne Rowell MD - 09/11/2023 10:51 AM EDT [...] physical therapy NSTs weekly starting next week. Roxanne Rowell M.D. documented in this encounterCleveland Clinic [facility] Hospital10-11-2023 Instructions* Patient Instructions* Mavis Garcia Ma - 09/11/2023 9:50 AM EDT SEQUENTIAL SCREENINGS [facility] offers sequential screenings for women who [...] testing. It will require an appointment withour electronic technician. This is not an ultrasound performed [...] the above symptoms, contact our office at [phone] and ask to speak with anurse. After hours, you can call doctors registry at [phone] OR call [facility] at [phone] ask to have the doctor online program coordinator paged. If you consider this an emergency, dial 8-5-6 or go to your nearest emergency department. NEED HELP? Are you dealing with a violent or abusive relationship? Are you a victim of rape or sexual assult? Call [facility] ([place]) 24 hour Crisis Hotline: 342.201.3249 or 786-448-1134. MANUAL Your Guide to a Healthy manual is now on-line. Visit [email or web address] to download your free copy documented in this encounterCleveland Clinic [facility]09-19-2023 Miscellaneous Notes* Telephone Encounter - Emma Lundberg RN - 08/20/2023 11:30 AM EDT Patient notified. Emma Lundberg RN * Telephone Encounter - Funmilayo [...] [facility] Thanks. Roxanne Rowell MD documented in this encounterCleveland Clinic [facility] Hospital09-08-2023 Miscellaneous Notes* Telephone Encounter - Katelynn Luciano RN - 08/09/2023 12:37 PM EDT 3rd risk assessment form submitted 08/09/23 Katelynn Luciano RN documented in this encounterCleveland Clinic [facility] Hospital09-01-2023 Miscellaneous Notes* Quick Notes - Roxanne Rowell MD - 08/02/2023 10:59 AM EDT [...] at delivery but considering after PP exam. Roxanne Rowell M.D. documented in this encounterCleveland Clinic [facility]09-01-2023 History of Present illness Narrative* Mavis [...] severely ill: Yes Patient denies history of Guillain-Fonda Syndrome (a severe paralytic illness): Yes Tdap Adacel injection was given without incident. See immunizations for details of immunizations administered today. VIS sheet provided: Yes Provider Dr Rowell was present in office at time of injection. Mavis Garcia Ma documented in this encounterCleveland Clinic [facility] Hospital09-01-2023 Instructions* Patient Instructions* Mavis Garcia Ma - 08/02/2023 10:28 AM EDT SEQUENTIAL SCREENINGS [facility] offers sequential screenings for women who [...] testing. It will require an appointment withour electronic technician. This is not an ultrasound performed [...] the above symptoms, contact our office at [phone] and ask to speak with anurse. After hours, you can call doctors registry at [phone] OR call [facility] at [phone] ask to have the doctor online program coordinator paged. If you consider this an emergency, dial 9--1 or go to your nearest emergency department. NEED HELP? Are you dealing with a violent or abusive relationship? Are you a victim of rape or sexual assult? Call [facility] ([place]) 24 hour Crisis Hotline: 878.448.9464 or 345-924-4146. MANUAL Your Guide to a Healthy manual is now on-line. Visit [email or web address] to download your free copy documented in this encounterCleveland Clinic [facility] Hospital08-22-2023 Miscellaneous Notes* Quick Notes - Roxanne Rowell MD - 07/23/2023 10:43 AM EDT [...] vistaril obesity- plan growth scan 32 weeks. Roxanne Rowell M.D. documented in this encounterCleveland Clinic Med[facility] Hospital08-22-2023 Instructions* Patient Instructions* Mavis Garcia Ma - 07/23/2023 10:23 AM EDT SEQUENTIAL SCREENINGS [facility] offers sequential screenings for women who [...] testing. It will require an appointment withour electronic technician. This is not an ultrasound performed [...] the above symptoms, contact our office at [phone] and ask to speak with anurse. After hours, you can call doctors registry at [phone] OR call [facility] at [phone] ask to have the doctor online program coordinator paged. If you consider this an emergency, dial 9-1-4 or go to your nearest emergency department. NEED HELP? Are you dealing with a violent or abusive relationship? Are you a victim of rape or sexual assult? Call [facility] ([place]) 24 hour Crisis Hotline: 197.425.4887 or 488-656-1219. MANUAL Your Guide to a Healthy manual is now on-line. Visit [email or web address] to download your free copy documented in this encounter[facility] Miscellaneous Notes* Telephone Encounter - Roxanne Rowell MD - 07/19/2023 8:32 AM EDT Thank you. Roxanne Rowell MD * Telephone Encounter - Funmilayo [...] 07/17/2023 4:57 PM EDT ----- Message from Roxanne Rowell MD sent at 07/17/2023 4:43 PM EDT ----- see mychart message I think our office is having difficulty contacting you. Please contact us at [phone] and ask for a nurse. If you are still having itching I want to see you again before your next appointment. Roxanne Rowell MD documented in this encounterC[facility]08-16-2023 Miscellaneous Notes* Telephone Encounter - Elizabeth Ghosh LPN - 07/17/2023 4:03 PM EDT Patient notified. * Telephone Encounter - Funmilayo Panchal RN - 07/16/2023 9:38 AM EDT 24w6d Attempted to contact patient again. Invalid phone number. Patient did not yet read [employer] message sent. Positive for bacterial vaginosis. Rx for Flagyl 500 mg PO BID x 7 days sent. No intercourse during treatment. Take all medications. Bettie Blum APRN.CNM documented in this encounterC[facility]08-10-2023 Miscellaneous Notes* Telephone Encounter - Emma Lundberg RN - 07/11/2023 4:08 PM EDT Left message for patient to call office. CP added on one more urine lab for her to complete. Leave not open for results tomorrow- see note below. Emma Lundberg RN * Telephone Encounter - Bettie Blum APRN.CNM - 07/11/2023 1:54 PM EDT Patient to return and leave urine for protein / creat. Ratio. Bettie Blum APRN.CNM * Telephone Encounter - Funmilayo Panchal RN - 07/11/2023 1:03 PM EDT Patient notified. Please keep this phone note open and have provider online program coordinator tomorrow (07/12/23) follow up on any returned labs from today. Funmilayo Panchal RN * Telephone Encounter - Emma Lundberg RN - 07/11/2023 12:58 PM EDT Left message for patient to call office. Emma Lundberg RN * Telephone Encounter - Bettie Blum APRN.CNM - 07/11/2023 12:45 PM EDT Please notify patient that due to urine dip I sent in Rx for Macrobid 100 mg PO BID x 7 days. I sent urine for a culture as well. Please keep this phone note open and have provider online program coordinator tomorrow follow up on any returned labs from today. Bettie Blum APRN.CNM documented in this encounterC[facility]08-10-2023 Miscellaneous Notes* Addendum Note - Bettie Blum APRN.CNM - 07/11/2023 1:45 PM EDTAddended by: BETTIE BLUM on: 07/11/2023 01:45 PM Modules accepted: Orders * Quick Notes - Bettie Blum APRN.CNM - 07/11/2023 12:15 PM EDT [...] Abd: Gravid, non tender with moderate palpation TECHNICAL SOLUTIONS DIRECTOR: SSE completed. Moderate amount of thick white/yellow [...] when to call 2) Keep scheduled appointment Bettie Blum APRN.CNM documented in this encounterC[facility]08-10-2023 Instructions* Patient Instructions* Jesenia Lynn RN - 07/11/2023 11:30 AM EDT SEQUENTIAL SCREENINGS [facility] offers sequential screenings for women who [...] testing. It will require an appointment withour electronic technician. This is not an ultrasound performed [...] the above symptoms, contact our office at [phone] and ask to speak with anurse. After hours, you can call doctors registry at [phone] OR call [facility] at [phone] ask to have the doctor online program coordinator paged. If you consider this an emergency, dial 5-7-9 or go to your nearest emergency department. NEED HELP? Are you dealing with a violent or abusive relationship? Are you a victim of rape or sexual assult? Call [facility] ([place]) 24 hour Crisis Hotline: 678.697.2392 or 137-578-1605. MANUAL Your Guide to a Healthy manual is now on-line. Visit [email or web address] to download your free copy documented in this encounterCleveland Clinic Med[facility] Hospital08-10-2023 Miscellaneous Notes* Telephone Encounter - Funmilayo Panchal RN - 07/11/2023 11:20 AM EDT Patient called in to the office. Coming in to the office now. Funmilayo Panchal RN * Telephone Encounter - Funmilayo Panchal RN - 07/11/2023 10:39 AM EDT Tried calling patient. Has not read [employer] messages yet either. * Telephone Encounter - Roxanne Rowell MD - 07/11/2023 9:17 AM EDT offer ob appt. CP end of am. Roxanne Rowell MD * Telephone Encounter - Jaida Dubois LPN - 07/11/2023 7:50 AM EDT Please see pt's mychart message and pended orders below and further advise. Jaida Dubois LPN documented in this encounterC[facility]07-27-2023 Miscellaneous Notes* Quick Notes - Roxanne Rowell MD - 06/27/2023 10:57 AM EDT [...] ordered f/u in 3-5 weeks or prn. Roxanne Rowell M.D. documented in this encounterCleveland Clinic [facility]07-27-2023 Instructions* Patient Instructions* Mavis Garcia Ma - 06/27/2023 10:12 AM EDT SEQUENTIAL SCREENINGS [facility] offers sequential screenings for women who [...] testing. It will require an appointment withour electronic technician. This is not an ultrasound performed [...] the above symptoms, contact our office at [phone] and ask to speak with anurse. After hours, you can call doctors registry at [phone] OR call [facility] at [phone] ask to have the doctor online program coordinator paged. If you consider this an emergency, dial 9-1-6 or go to your nearest emergency department. NEED HELP? Are you dealing with a violent or abusive relationship? Are you a victim of rape or sexual assult? Call [facility] ([facility] 24 hour Crisis Hotline: 240.670.1732 or 034-117-6403. MANUAL Your Guide to a Healthy manual is now on-line. Visit [email or web address] to download your free copy documented in this encounterCleveland Clinic Medina Hospital07-03-2023 Discharge summary Author Mustapha Serrato [facility] June 03, 2023 2:22pm Note Date/Time June 03, 2023 12:04 pm [facility] Medical Records Department [address] [place] [address] Emergency Department Summary 06/03/23 MR#: [id number] Acct: [id number] Name: YOKASTA PRETTY Rep #:[id number] : [...] Due date is 10/30/2023. She sees Dr. Roxanne Rowell for RELISH BLENDER. Patient is G4, P1 Ab2 with those [...] #12 tabs 10/21/22 [Rx Last Taken Unknown] qmgcrmiv-suu-Oq-FA 1 mg tablet 1 tab PO DAILY [...] house current occupational status: employed current occupation: [employer] sexually active: Yes Smoking Status: [...] to home with outpatient follow-up with her RELISH BLENDER. A prescription will be sent to her pharmacy, [facility], for Zofran. History & Record Review Discussion w/independent historian: [...] Clarity Cloudy Urine pH 7.0 Ur Specific Canvas 1.010 Urine Protein 15 H Urine Glucose [...] Magnolia Chen MD [Primary Care Provider] - Roxanne Rowell MD [Med Staff - Active Staff] - Keep Rodri appointment Activity Restrictions/Additional Instructions: Plenty of fluids and rest. Increase your diet slowly as tolerated. Zofran as needed for nausea. Follow-up with your RELISH BLENDER with your neck scheduled appointment. Follow-up sooner if not doing well. Return if unable to keep fluids down. Disposition Disposition: Home, Self Care What to do if you have Problems For any increased pain, shortness of breath, bleeding, nausea or vomiting, chestpain, or any unexpected problems, contact your Primary Care Provider. Call [facility] ([phone]) or report to the closest Emergency Room. Call 911 if necessary. 06/03/23 1422 <Electronically signed by Mustapha Serrato MD> Cosigner Signature (if applicable): CC: Dr. Magnolia Chen MD ~ Signed [facility] Work Phone: 1(904) 830-468306-03-[address] Serrato [facility] May 04, 2023 4:40pm Note Date/Time May 04, 2023 3:31p m [facility] Medical Records Department [address] [place] [address] Emergency Department Summary 05/04/23 MR#: [id number] Acct: [id number] Name: YOKASTA PRETTY Rep #:[id number] : [...] Q6H PRN nausea and vomiting #12 tabs 11/20/22 [Rx Last Taken Unknown] hsiqnujt-afp-Ek-FA 1 mg tablet 1 tab PO DAILY [...] house current occupational status: employed current occupation: [employer] sexually active: Yes Smoking Status: Former smoker [...] motor deficits and no sensory deficits noted Alex Coma Scale: document GCS findings Spontaneous Obeys [...] Doing well. Feeling better. I did callthe blocking machine operator on-call for patient's RELISH BLENDER comfortable with her being discharged with outpatient [...] 16:25 EDT Reading Location ID and State: [facility] / [place] , Service support , Discharge Plan Triage [...] Magnolia Chen MD [Primary Care Provider] - Roxanne Rowell MD [Med Staff - Active Staff] - As Needed Activity Restrictions/Additional Instructions: Tylenol for pain. Ice to your scalp. Follow-up with your RELISH BLENDER as needed and scheduled. Return or follow-up with them if you develop any vaginal bleeding. The CAT scan of your abdomen and lumbar spine look good. You have good heart tones at 155. I spoke to themjoãowife on-call for your RELISH BLENDER. Disposition Disposition: Home, Self Care What to do if you have Problems For any increased pain, shortness of breath, bleeding, nausea or vomiting, chestpain, or any unexpected problems, contact your Primary Care Provider. Call [facility] ([phone]) or report to the closest Emergency Room. Call 911 if necessary. 05/04/23 1640 <Electronically signed by Mustapha Serrato MD> Cosigner Signature (if applicable): CC: Dr. Magnolia Chen MD ~ Signed [facility] Work Phone: 1(731) 898-516705-30-2023 Miscellaneous Notes* Telephone Encounter - Roxanne Rowell MD - 04/30/2023 9:59 AM EDT Can you see if she has cultures? Roxanne Rowell MD * Telephone Encounter - Emma Lundberg RN - 04/30/2023 9:32 AM EDT 13w6d documented in this encounterCleveland Clinic [facility] Hospital05-05-2023 Miscellaneous Notes* Telephone Encounter - Jaida Dubois LPN - 04/05/2023 3:32 PM EDT Spoke with pt's pharmacy carrier and medication was approved. Pt notified and will check with pharmacy later today. Jaida Dubois LPN * Telephone Encounter - Jaida Dubois LPN - 04/01/2023 3:44 PM EDT Electronic PA submitted for [employer] Will await further response from pt's insurance. Jaida Dubois LPN documented in this encounterC[facility] Clinic [facility] Hospital05-03-2023 Miscellaneous Notes* Telephone Encounter - Sharon Florence RN - 04/03/2023 11:05 AM EDT Initial risk assessment form submitted 04/03/23 Sharon Florence RN documented in this encounterCleveland Clinic [facility] Hospital04-02-[address] Corona [facility] March 03, 2023 11:08pm Note Date/Time March 03, 2023 9:19 pm [facility] Medical Records Department [address] [place] [id number] Emergency Department Summary 03/03/23 MR#: [id number] Acct: [id number] Name: YOKASTA PRETTY Rep #:[id number] : [...] any fever, chest pain, shortness of breath. PFSH <MIGEL Stallings - Last Filed: 03/03/23 22:14> PFSH Medical History Anxiety Asthma Bipolar disorder [...] house current occupational status: employed current occupation: [employer] sexually active: Yes Smoking Status: Former [...] Mean 89 89 88 Pulse Ox 98 [facility] <MIGEL Stallings - Last Filed: 03/03/23 22:14> [facility] Narrative Medical decision making narrative: Patient presenting [...] % (Auto) 67.8 Lymph % (Auto) 22.0 Beaver % (Auto) 7.5 Eos % (Auto) 1.9 Baso % (Auto) 0.6 Absolute Neuts (auto) 5.6 Absolute Lymphs (auto) 1.81 Nucleated RBC % 0 HCG, Quant 5957 H Radiography Diagnostic Testing: Clinical Impression(s) from Imaging Studies Obstetrics Ultrasound 03/03/23 21:08 IMPRESSION: Early intrauterine at 5 weeks and 5 days. No specific abnormality. Electronically Signed: Antelmo Diaz MD at 22:42 EDT , <Dr. Emmanuel Corona DO - Last Filed: 03/03/23 22:55> [facility] Narrative Medical decision making narrative: Patient presenting [...] at this time. I discussed case with RELISH BLENDER on-call for Dr. Roula Corona who is [...] % (Auto) 67.8 Lymph % (Auto) 22.0 Beaver % (Auto) 7.5 Eos % (Auto) 1.9 [...] your Primary Care Provider. Call Doctors Registry ([phone]) or report to the closest Emergency Room. Call 911 if necessary. 03/03/232213 <Electronically signed by Clari LAINEZ> Cosigner Signature (if applicable): 03/03/232307 <Electronically signed by Emmanuel Corona DO> CC: Dr. Magnolia Chen MD ~ Signed [facility] Work Phone: [phone]) 106-643503-10-2023 History of Present illness Narrative* Jason Bettencourt MD - 02/08/2023 1:40 PM EST [...] fever, or blood in vomit or stool. Jason Bettencourt MD documented in this encounterCleveland Clinic [facility] HospitalEvaluation note* Diagnosis Onset Date Resolution Status Marginal placenta previa acu te acute acute Headache in acute [facility] Work Phone: Evaluation note* Diagnosis Onset Date Resolution Status Marginal placenta previa acu te acute acute Headache in acute Amniotic fluid leaking acute [facility] Work Phone: Evaluation note* Diagnosis Onset Date Resolution Status Marginal placenta previa acu te acute acute Headache in acute Amniotic fluid leaking acute False labor acute acute acute Spontaneous vaginal delivery acute [facility] Work Phone: Evaluation note* Diagnosis Onset Date Resolution Status Cholecystitis with cholelithiasis acute [facility] Work Phone: Evaluation note* Diagnosis Onset Date Resolution Status S/P cholecystectomy acute Abdominal pain acute S/P cholecystectomy acute [facility] Work Phone: Evaluation note* Diagnosis Onset Date Resolution Status S/P cholecystectomy resolved Abdominal pain acute S/P cholecystectomy resolved COVID-19 vaccination declined noneactive Establishing care with new doctor, encounter for noneactive Fatty liver noneactive Dysuria noneactive Suspected sleep apnea noneac tive S/P cholecystectomy noneacti ve Anxiety and depression nonea ctive Vitamin D deficiency noneact beatrice [facility] Work Phone: Evaluation note* Diagnosis Onset Date Resolution Status S/P cholecystectomy resolved Abdominal pain acute S/P cholecystectomy resolved COVID-19 vaccination declined noneactive Establishing care with new doctor, encounter for noneactive Fatty liver noneactive Dysuria noneactive Suspected sleep apnea noneac tive S/P cholecystectomy noneacti ve Anxiety and depression nonea ctive Vitamin D deficiency noneact beatrice Abdominal pain acute Diarrhea acute [facility] Work Phone: Evaluation note* Diagnosis Gastroenteritis- Primary Other and unspecified noninfectious gastroenteritis and colitis documented in this encounter [facility] noteNo assessment information availableWCincinnati [facility] Work Phone: Evaluation note* Diagnosis with inconclusive viability, single or unspecified fetus- Primary Supervision of other high risk pregnancies, first trimester BMI 40.0-44.9, adult (HCC) Body Mass Index 40.0-44.9, adult documented in this encounter [facility] note* Diagnosis Onset Date Resolution Status Gout attack acute [facility] Work Phone: Evaluation note* Diagnosis Encounter for anatomic survey- Primary Supervision of other high risk pregnancies, first trimester 13 weeks gestation of state, incidental Obesity affecting in second trimester, unspecified obesity type documented in this encounter [facility] note* Diagnosis Supervision of high risk in second trimester- Primary Unspecified high-risk 22 weeks gestation of state, incidental Leg cramps in Other specified complication of , unspecified as to episode of care documented in this encounter [facility] note* Diagnosis Prurigo of in second trimester- Primary Abdominal pain in , second trimester documented in this encounter [facility] note* Diagnosis 24 weeks gestation of - Primary state, incidental Supervision of other high risk pregnancies, first trimester Vaginal burning Other specified symptom associated with female genital organs Vaginal discharge during in second trimester Pruritus Unspecified pruritic disorder Gestational proteinuria in second trimester Unspecified antepartum renal disease documented in this encounter [facility] note* Diagnosis 25 weeks gestation of - Primary state, incidental Supervision of high risk in second trimester Unspecified high-risk Generalized pruritus Unspecified pruritic disorder documented in this encounter [facility] note* Diagnosis Supervision of high risk in second trimester- Primary Unspecified high-risk 27 weeks gestation of state, incidental Need for vaccination Need for prophylactic vaccination and inoculation against unspecified single disease Maternal obesity syndrome in third trimester BMI 39.0-39.9,adult Body Mass Index 39.0-39.9, adult [facility]* Diagnosis Onset Date Resolution Status 25 weeks gestation of acute Cramping affecting , antepartum acute [facility] Work Phone: evaluation note* Diagnosis Maternal obesity syndrome in third trimester- Primary Supervision of high risk in third trimester Unspecified high-risk 33 weeks gestation of state, incidental documented in this encounter [facility]* Diagnosis Encounter for ultrasound to check growth- Primary Encounter for routine screening for malformation using ultrasonics Supervision of high risk in second trimester Unspecified high-risk Maternal obesity syndrome in third trimester BMI 39.0-39.9,adult Body Mass Index 39.0-39.9, adult 33 weeks gestation of state, incidental documented in this encounter [facility]* Diagnosis Onset Date Resolution Status 25 weeks gestation of acute Cramping affecting , antepartum acute 29 weeks gestation of acute [facility] Work Phone: Evaluation note* Diagnosis 34 weeks gestation of - Primary state, incidental Obesity affecting , antepartum, unspecified obesity type Supervision of high risk in third trimester Unspecified high-risk UTI (urinary tract infection) during , third trimester documented [facility] this encounter [facility]* Diagnosis Obesity affecting , antepartum, unspecified obesity type- Primary Supervision of high risk in third trimester Unspecified high-risk UTI (urinary tract infection) during , third trimester 35 weeks gestation of state, incidental documented [facility] this encounter [facility]* Diagnosis Supervision of high risk in third trimester- Primary Unspecified high-risk 36 weeks gestation of state, incidental [facility] this [facility]* Diagnosis Supervision of high risk in third trimester- Primary Unspecified high-risk 36 weeks gestation of state, incidental Obesity affecting , antepartum, unspecified obesity type UTI (urinary tract infection) during , third trimester documented in this encounter [facility]* Diagnosis Onset Date Resolution Status 25 weeks gestation of acute Cramping affecting , antepartum acute 29 weeks gestation of acute 34 weeks gestation of acute No leakage of amniotic fluid into vagina acute 37 weeks gestation of acute Asthma acute Bipolar disorder acute Cramping affecting , antepartum acute No leakage of amniotic fluid into vagina acute [facility] Work Phone: Evaluation note* Diagnosis Supervision of high risk in third trimester- Primary Unspecified high-risk Maternal obesity syndrome in third trimester BMI 40.0-44.9, adult (HCC) Body Mass Index 40.0-44.9, adult UTI (urinary tract infection) during , third trimester documented in this encounter [facility] note* Diagnosis Onset Date Resolution Status 25 [...] acute Obesity acute Positive GBS test acute [id number] acute SROM (spontaneous rupture of membranes) acute UTI in acute Vaginal delivery acute [facility] Work Phone: Evaluation note* Diagnosis Maternal obesity syndrome in third trimester Supervision of high risk in third trimester Unspecified high-risk documented [facility] this encounter [facility]* Diagnosis URI, acute- Primary Acute upper respiratory infections of unspecified site Acute cough URI, acute Acute upper respiratory infections of unspecified site Acute cough [facility]* Diagnosis URI, acute Acute upper respiratory infections of unspecified site Acute cough documented in this encounter [facility]* Diagnosis Allergic reaction, initial encounter- Primary documented in this encounter [facility]* Diagnosis Urinary frequency- Primary Acute right flank pain Abdominal pain, unspecified site Dizziness Dizziness and giddiness documented [facility] this [facility]* Diagnosis Maternal obesity syndrome in third trimester- Primary BMI 40.0-44.9, adult (HCC) Body Mass Index 40.0-44.9, adult History of PCOS Personal history of other genital system and obstetric disorders [facility]* Diagnosis Encounter for supervision of high [...] Dizziness and giddiness documented [facility] this encounter [facility]* Diagnosis Encounter for screening for malformation using ultrasound- Primary 13 weeks gestation of state, incidental documented [facility] this encounter [facility]* Diagnosis Supervision of [...] of other injury [facility] this [facility]* Diagnosis Encounter for supervision of high risk in first trimester, antepartum (HCC)- Primary 17 weeks gestation of ([facility]) state, incidental Dizziness Dizziness and giddiness Rubella non-immune status, antepartum (HCC) Other specified complication, antepartum Hypothyroidism affecting in first trimester (HCC) Borderline personality disorder (HCC) Borderline personality disorder History of depression Personal history of other mental disorder History of depression Anxiety disorder affecting , antepartum (HCC) documented [facility] this encounter [facility]* Diagnosis Supervision of high risk in second trimester (HCC)- Primary Unspecified high-risk 20 weeks gestation of (HCC) state, incidental Dysuria Hypothyroidism affecting in second trimester (HCC) Obesity affecting in second trimester, unspecified obesity type (HCC) documented [facility] this encounter [facility]* Diagnosis Encounter for anatomic survey (HCC)- Primary Encounter for anatomic survey Obesity affecting in first trimester, unspecified obesity type ([facility]) Family history of defect Family history of congenital anomalies 20 weeks gestation of ([facility]) state, incidental [facility] this encounter [facility]* Diagnosis Pyelonephritis complicating , antepartum ([facility])- Primary Infections of genitourinary tract antepartum Dysuria in ([facility]) Other specified complication of , unspecified as to episode of care 20 weeks gestation of ([facility]) state, incidental Elevated blood pressure reading in office without diagnosis of hypertension Obesity affecting in second trimester ([facility]) Anxiety disorder affecting , antepartum ([facility]) Hypothyroidism affecting in second trimester ([facility]) 21 weeks gestation of ([facility])- Primary state, incidental Supervision of high risk in second trimester ([facility]) Unspecified high-risk Pyelonephritis complicating , antepartum ([facility]) Infections of genitourinary tract antepartum Hypothyroidism affecting in second trimester ([facility]) [facility] Diagnosis Pyelonephritis complicating , antepartum ([facility])- Primary Infections of genitourinary tract antepartum Dysuria in ([facility]) Other specified complication of , unspecified as to episode of care Pyelonephritis affecting ([facility])- Primary Pyelonephritis affecting in second trimester ([facility]) History of depression Personal history of other mental disorder Obesity affecting in second trimester ([facility]) Anxiety disorder affecting , antepartum ([facility]) Hypothyroidism affecting in second trimester ([facility]) Rubella non-immune status, antepartum ([facility]) Other specified complication, antepartum Elevated blood pressure reading in office without diagnosis of hypertension Prematurity of fetus ([facility]) Other infants, unspecified (weight) Flank pain with history of urolithiasis Nicotine use disorder, F17.2 Tobacco use disorder Back pain affecting ([facility]) Encounter for supervision of high risk in second trimester, antepartum ([facility])- Primary 24 weeks gestation of ([facility]) state, incidental Pyelonephritis complicating , antepartum ([facility]) Infections of genitourinary tract antepartum Hypothyroidism affecting in second trimester ([facility]) Obesity affecting in second trimester, unspecified obesity type ([facility]) Anemia complicating , second trimester ([facility]) Screening for diabetes mellitus Pruritus of in second trimester ([facility]) [facility] Diagnosis Pyelonephritis complicating , antepartum (HCC)- Primary Infections of genitourinary tract antepartum Dysuria in ([facility]) Other specified complication of , unspecified as to episode of care Pyelonephritis affecting (HCC)- Primary Pyelonephritis affecting in second trimester ([facility]) History of depression Personal history of other mental disorder Obesity affecting in second trimester (HCC) Anxiety disorder affecting , antepartum (HCC) Hypothyroidism affecting in second trimester (HCC) Rubella non-immune status, antepartum (HCC) Other specified complication, antepartum Elevated blood pressure reading in office without diagnosis of hypertension Prematurity of fetus (HCC) Other infants, unspecified (weight) Flank pain with history of urolithiasis Nicotine use disorder, F17.2 Tobacco use disorder Back pain affecting ([facility]) Elevated TSH- Primary Nonspecific abnormal results of thyroid function study 24 weeks gestation of ([facility]) state, incidental documented in this encounter [facility] note* Diagnosis Pyelonephritis complicating , antepartum (HCC)- Primary Infections of genitourinary tract antepartum Dysuria in ([facility]) Other specified complication of , unspecified as to episode of care Pyelonephritis affecting ([facility])- Primary Pyelonephritis affecting in second trimester ([facility]) History of depression Personal history of other mental disorder Obesity affecting in second trimester ([facility]) Anxiety disorder affecting , antepartum (HCC) Rubella non-immune status, antepartum (HCC) Other specified complication, antepartum Elevated blood pressure reading in office without diagnosis of hypertension Prematurity of fetus (HCC) Other infants, unspecified (weight) Flank pain with history of urolithiasis Nicotine use disorder, F17.2 Tobacco use disorder Back pain affecting ([facility]) Hypothyroidism in , antepartum, second trimester (HCC)- Primary Elevated TSH Nonspecific abnormal results of thyroid function study 24 weeks gestation of ([facility]) state, incidental documented in this encounter [facility] note* Diagnosis Pyelonephritis complicating , antepartum (HCC)- Primary Infections of genitourinary tract antepartum Dysuria in ([facility]) Other specified complication of , unspecified as to episode of care Pyelonephritis affecting (HCC)- Primary Pyelonephritis affecting in second trimester ([facility]) History of depression Personal history of [...] third trimester (HCC) 28 weeks gestation of ([facility]) state, incidental * Assessment & Plan Note - Epifanio Sanchez MD - 06/03/2025 10:38 AM EDTAssociated Problem(s): Pyelonephritis complicating , antepartum ([facility]) On macrobid suppression. * Assessment & Plan Note - Epifanio Sanchez MD - 06/03/2025 10:38 AM EDTAssociated Problem(s): Hypothyroidism affecting in second trimester ([facility]) Follows with endo. Continue synthroid. [facility] Diagnosis Hypothyroidism affecting in [...] 28 weeks gestation of (HCC) state, incidental documented in this encounter [facility]* Diagnosis Pyelonephritis complicating , antepartum (HCC)- Primary Infections of genitourinary tract antepartum Dysuria in ([facility]) Other specified complication of , unspecified as to episode of care Pyelonephritis affecting (HCC)- Primary Pyelonephritis affecting in second trimester ([facility]) History of depression Personal history of other mental disorder Obesity affecting in second trimester (HCC) Anxiety disorder affecting , antepartum (HCC) Rubella non-immune status, antepartum (HCC) Other specified complication, antepartum Elevated blood pressure reading in office without diagnosis of hypertension Prematurity of fetus ([facility]) Other infants, unspecified (weight) Flank pain [...] Supervision of high risk in third trimester ([facility])- Primary Unspecified high-risk Anemia complicating , third trimester (HCC) Obesity affecting in third trimester, unspecified obesity type (HCC) Hypothyroidism affecting in second trimester (HCC) Decreased movements in third trimester, single or unspecified fetus (HCC) 30 weeks gestation of ([facility]) state, incidental * Assessment & Plan Note - Kayla Vaz MD - 06/16/2025 10:06 AM EDTAssociated Problem(s): Hypothyroidism affecting in second trimester (HCC) Continue synthroid [facility] Diagnosis Pyelonephritis complicating , antepartum ([facility])- Primary Infections of genitourinary tract antepartum Dysuria in ([facility]) Other specified complication of , unspecified as to episode of care Pyelonephritis affecting ([facility])- Primary Pyelonephritis affecting in second trimester ([facility]) History of depression Personal history of other mental disorder Obesity affecting in second trimester ([facility]) Anxiety disorder affecting , antepartum (HCC) Rubella non-immune status, antepartum ([facility]) Other specified complication, antepartum Elevated blood pressure reading in office without diagnosis of hypertension Prematurity of fetus (HCC) Other infants, unspecified (weight) Flank pain with history of urolithiasis Nicotine use disorder, F17.2 Tobacco use disorder Back pain affecting ([facility]) Obesity affecting in third trimester, unspecified obesity type ([facility])- Primary Pyelonephritis complicating , antepartum ([facility]) Infections of genitourinary tract antepartum Hypothyroidism affecting in second trimester ([facility]) Anemia complicating , third trimester ([facility]) 28 weeks gestation of ([facility]) state, incidental Supervision of high risk in third trimester ([facility])- Primary Unspecified high-risk Anemia complicating , third trimester ([facility]) Obesity affecting in third trimester, unspecified obesity type ([facility]) Hypothyroidism affecting in second trimester ([facility]) Decreased movements in third trimester, single or unspecified fetus ([facility]) 30 weeks gestation of ([facility]) state, incidental Obesity affecting in third trimester, unspecified obesity type ([facility])- Primary Supervision of high risk in third trimester ([facility]) Unspecified high-risk 31 weeks gestation of ([facility]) state, incidental Dysuria [facility] Diagnosis Pyelonephritis complicating , antepartum ([facility])- Primary Infections of genitourinary tract antepartum Dysuria in ([facility]) Other specified complication of , unspecified as to episode of care Pyelonephritis affecting ([facility])- Primary Pyelonephritis affecting in second trimester ([facility]) History of depression Personal history of other mental disorder Obesity affecting in second trimester ([facility]) Anxiety disorder affecting , antepartum ([facility]) Rubella non-immune status, antepartum ([facility]) Other specified complication, antepartum Elevated blood pressure reading in office without diagnosis of hypertension Prematurity of fetus (HCC) Other infants, unspecified (weight) Flank pain with history of urolithiasis Nicotine use disorder, F17.2 Tobacco use disorder Back pain affecting ([facility]) Obesity affecting in third trimester, unspecified obesity type ([facility])- Primary Pyelonephritis complicating , antepartum ([facility]) Infections of genitourinary tract antepartum Hypothyroidism affecting in second trimester ([facility]) Anemia complicating , third trimester ([facility]) 28 weeks gestation of ([facility]) state, incidental Supervision of high risk in third trimester ([facility])- Primary Unspecified high-risk Anemia complicating , third trimester ([facility]) Obesity affecting in third trimester, unspecified obesity type ([facility]) Hypothyroidism affecting in second trimester ([facility]) Decreased movements in third trimester, single or unspecified fetus ([facility]) 30 weeks gestation of ([facility]) state, incidental Obesity affecting in third trimester, unspecified obesity type ([facility])- Primary 32 weeks gestation of ([facility]) state, incidental Supervision of high risk in third trimester ([facility]) Unspecified high-risk [facility] Diagnosis Pyelonephritis complicating , antepartum ([facility])- Primary Infections of genitourinary tract antepartum Dysuria in ([facility]) Other specified complication of , unspecified as to episode of care Pyelonephritis affecting ([facility])- Primary Pyelonephritis affecting in second trimester ([facility]) History of depression Personal history of other mental disorder Obesity affecting in second trimester ([facility]) Anxiety disorder affecting , antepartum ([facility]) Rubella non-immune status, antepartum ([facility]) Other specified complication, antepartum Elevated blood pressure reading in office without diagnosis of hypertension Prematurity of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 regulations: The Federal rules restrict any use of the information to criminally investigate or prosecute any alcohol or drug abuse patient.[facility] HospitalIn the event this information is protected by the Federal Confidentiality of Alcohol and Drug Abuse Patient Records regulations: The Federal rules restrict any use of the information to criminally investigate or prosecute any alcohol or drug abuse patient.[facility] HospitalIn the event this information is protected by the Federal Confidentiality of Alcohol and Drug Abuse Patient Records regulations: The Federal rules restrict any use of the information to criminally investigate or prosecute any alcohol or drug abuse patient.[facility] HospitalIn the event this information is protected by the Federal Confidentiality of Alcohol and Drug Abuse Patient Records regulations: The Federal rules restrict any use of the information to criminally investigate or prosecute any alcohol or drug abuse patient.[facility] HospitalIn the event this information is protected by the Federal Confidentiality of Alcohol and Drug Abuse Patient Records regulations: The Federal rules restrict any use of the information to criminally investigate or prosecute any alcohol or drug abuse patient.[facility] HospitalIn the event this information is protected by the Federal Confidentiality of Alcohol and Drug Abuse Patient Records regulations: The Federal rules restrict any use of the information to criminally investigate or prosecute any alcohol or drug abuse patient.[facility] HospitalIn the event this information is protected by the Federal Confidentiality of Alcohol and Drug Abuse Patient Records regulations: The Federal rules restrict any use of the information to criminally investigate or prosecute any alcohol or drug abuse patient.[facility] HospitalIn the event this information is protected by the Federal Confidentiality of Alcohol and Drug Abuse Patient Records regulations: The Federal rules restrict any use of the information to criminally investigate or prosecute any alcohol or drug abuse patient.[facility] HospitalIn the event this information is protected by the Federal Confidentiality of Alcohol and Drug Abuse Patient Records regulations: The Federal rules restrict any use of the information to criminally investigate or prosecute any alcohol or drug abuse patient.[facility] HospitalIn the event this information is protected by the Federal Confidentiality of Alcohol and Drug Abuse Patient Records regulations: The Federal rules restrict any use of the information to criminally investigate or prosecute any alcohol or drug abuse patient.[facility] HospitalIn the event this information is protected by the Federal Confidentiality of Alcohol and Drug Abuse Patient Records regulations: The Federal rules restrict any use of the information to criminally investigate or prosecute any alcohol or drug abuse patient.[facility] HospitalIn the event this information is protected by the Federal Confidentiality of Alcohol and Drug Abuse Patient Records regulations: The Federal rules restrict any use of the information to criminally investigate or prosecute any alcohol or drug abuse patient.[facility] HospitalIn the event this information is protected by the Federal Confidentiality of Alcohol and Drug Abuse Patient Records regulations: The Federal rules restrict any use of the information to criminally investigate or prosecute any alcohol or drug abuse patient.[facility] HospitalIn the event this information is protected by the Federal Confidentiality of Alcohol and Drug Abuse Patient Records regulations: The Federal rules restrict any use of the information to criminally investigate or prosecute any alcohol or drug abuse patient.[facility] HospitalIn the event this information is protected by the Federal Confidentiality of Alcohol and Drug Abuse Patient Records regulations: The Federal rules restrict any use of the information to criminally investigate or prosecute any alcohol or drug abuse patient.[facility] HospitalIn the event this information is protected by the Federal Confidentiality of Alcohol and Drug Abuse Patient Records regulations: The Federal rules restrict any use of the information to criminally investigate or prosecute any alcohol or drug abuse patient.[facility] HospitalIn the event this information is protected by the Federal Confidentiality of Alcohol and Drug Abuse Patient Records regulations: The Federal rules restrict any use of the information to criminally investigate or prosecute any alcohol or drug abuse patient.[facility] HospitalIn the event this information is protected by the Federal Confidentiality of Alcohol and Drug Abuse Patient Records regulations: The Federal rules restrict any use of the information to criminally investigate or prosecute any alcohol or drug abuse patient.[facility] HospitalIn the event this information is protected by the Federal Confidentiality of Alcohol and Drug Abuse Patient Records regulations: The Federal rules restrict any use of the information to criminally investigate or prosecute any alcohol or drug abuse patient.[facility] HospitalIn the event this information is protected by the Federal Confidentiality of Alcohol and Drug Abuse Patient Records regulations: The Federal rules restrict any use of the information to criminally investigate or prosecute any alcohol or drug abuse patient.[facility] HospitalIn the event this information is protected by the Federal Confidentiality of Alcohol and Drug Abuse Patient Records regulations: The Federal rules restrict any use of the information to criminally investigate or prosecute any alcohol or drug abuse patient.[facility] HospitalIn the event this information is protected by the Federal Confidentiality of Alcohol and Drug Abuse Patient Records regulations: The Federal rules restrict any use of the information to criminally investigate or prosecute any alcohol or drug abuse patient.[facility] HospitalIn the event this information is protected by the Federal Confidentiality of Alcohol and Drug Abuse Patient Records regulations: The Federal rules restrict any use of the information to criminally investigate or prosecute any alcohol or drug abuse patient.[facility] HospitalIn the event this information is protected by the Federal Confidentiality of Alcohol and Drug Abuse Patient Records regulations: The Federal rules restrict any use of the information to criminally investigate or prosecute any alcohol or drug abuse patient.[facility] Reason for Visit (unrecogniz ed section and content) Reason Comments Diarrhea Diarrhea, vomiting, chills and MARQUEZ x 1 day Reason Comments Care Reason Comments Forms praf Reason Comments Insurance Authorization Reason Comments US Specialty Diagnoses / Procedures Referred By Contac t Referred To Contact [facility] Diagnoses Supervision of other high risk pregnancies, first trimester 13 weeks gestation of Procedures OBSTETRIC ULTRASOUND WHI US PREG UTERUS AFTER 1ST TRIMEST GESTATION Roxanne Rowell MD [address] [place] [address] [facility] [address] [place] [address] Referral ID Status Reason Start Date Expiration Date V isits Requested Visits Authorized [id number] Closed Auto-Generate d Referral 04/30/2023 04/29/2024 1 1 Reason Onset Date Comments Care 06/27/2023 Reason Onset Date Comments Care 07/11/2023 Reason Comments Results Reason Onset Date Comments Care 07/23/2023 Reason Onset Date Comments Care 08/02/2023 Reason Comments THIRD PRAF FORM Reason Onset Date Comments Care 09/11/2023 Specialty Diagnoses / Procedures Referred By Contac t Referred To Contact [facility] Diagnoses Supervision of high risk in second trimester Maternal obesity syndrome in third trimester BMI 39.0-39.9,adult Procedures OBSTETRIC ULTRASOUND WHI US PREG UTERUS AFTER 1ST TRIMEST GESTATION Roxanne Rowell MD [address] [place] [address] [id number] [place] [address] Referral ID Status Reason Start Date Expiration Date V isits Requested Visits Authorized [id number] Closed Auto-Generate d Referral 08/02/2023 08/01/2024 2 1 Reason Onset Date Comments Care 09/23/2023 Reason Comments breast pump Reason Onset Date Comments Care 10/01/2023 Specialty Diagnoses / Procedures Referred By Contac t Referred To Contact [facility] Diagnoses Maternal obesity syndrome in third trimester Supervision of high risk in third trimester Procedures NON-STRESS TEST NON-STRESS TEST Roxanne Rowell MD [address] [place] [address] [facility] [address] [place] [address] Referral ID Status Reason Start Date Expiration Date V isits Requested Visits Authorized [id number] Closed Auto-Generate d Referral 08/20/2023 08/19/2024 1 [...] Reason Comments Initial OB Visit Reason Comments Patient Access Registrar - Other PRAF Specialty Diagnoses / Procedures Referred By Castillo ram Referred To Contact [facility] Diagnoses with uncertain dates in first trimester Encounter for supervision of high risk in first trimester, antepartum Obesity affecting in first trimester, unspecified obesity type History of miscarriage Depression affecting Family history of defect Procedures OBSTETRIC ULTRASOUND WHI US PREG UTERUS AFTER 1ST TRIMEST GESTATION Judit Pimentel APRN.CNP [address] [place] [address] Phone: tel: fax: [place] [phone] Referral ID Status Reason Start Date Expiration Date V isits Requested Visits Authorized [id number] Closed Auto-Generate d Referral 01/21/2025 01/21/2026 1 1 Reason Onset Date Comments Care 02/16/2025 Reason Onset Date Comments Care 04/08/2025 Specialty Diagnoses / Procedures Referred By Castillo ram Referred To Contact [facility] Diagnoses with uncertain dates in first trimester (HCC) Encounter for supervision of high risk in first trimester, antepartum (HCC) Obesity affecting in first trimester, unspecified obesity type (HCC) History of miscarriage Depression affecting (HCC) Family history of defect Procedures OBSTETRIC ULTRASOUND WHI US PREG UTERUS AFTER 1ST TRIMEST GESTATION Judit Pimentel APRN.CNP [address] [place] [address] Phone: tel: fax:[phone] [address] Referral ID Status Reason Start Date Expiration Date V isits Requested Visits Authorized [id number] Closed Auto-Generate d Referral 01/21/2025 01/21/2026 1 1 Reason Onset Date Comments Care 04/14/2025 Reason Comments Thyroid Problem Specialty Diagnoses / Procedures Referred By Castillo ram Referred To Contact Endocrinology Diagnoses Elevated TSH 24 weeks gestation of (HCC) Procedures CONSULT TO ENDOCRINOLOGY OFFICE/OUTPATIENT NEW HIGH MDM 60 MINUTES Judit Pimentel APRN.CNP [address] [place] [address] Phone: tel: fax:[phone] Referral ID Status Reason Start Date Expiration Date V isits Requested Visits Authorized [id number] Closed PCP Requested Referral 05/07/2025 05/07/2026 1 1 Reason Onset Date Comments Care 06/03/2025 Reason Comments PRAF Reason Onset Date Comments Care 06/16/2025 Reason Onset Date Comments Care 06/21/2025 Reason Onset Date Comments Care 07/02/2025 Specialty Diagnoses / Procedures Referred By Contac t Referred To Contact [facility] Diagnoses Obesity affecting in third trimester, unspecified obesity type (HCC) Procedures OBSTETRIC ULTRASOUND WHI US PREG UTERUS AFTER 1ST TRIMEST GESTATION Epifanio Sanchez MD [address] [place] [address] Phone: tel: fax: [facility] [address] [place] [address] Referral ID Status Reason Start Date Expiration Date V isits Requested Visits Authorized [id number] Closed Auto-Generate d Referral 06/03/2025 06/03/2026 1 1 Reason Onset Date Comments Care 07/13/2025 Reason Onset Date Comments Care 07/20/2025 Reason Onset Date Comments Care 07/27/2025 Care Teams (unrecognized sec tion and content) Team Status: Active Member Role Status Dates Dr. Shivani Rowell MD Family Provider Active Dr. Magnolia Chen MD Primary Care Provider Active Team Status: Active Member Role Status Dates Dr. Magnolia Chen MD Primary Care Provider, Referri ng Provider Active Dr. Antelmo Alegre MD Attending Provider, Other Provi selene Active Team Status: Inactive Member Role Status [...] Referri ng Provider Active Yuliya Jackson NP, [employer] Attending Provider Active Team Status: Inactive Member [...] Chen MD Primary Care Provider Active Dr. Kayla Oshea MD Attending Provider, R eferring Provider Active Team Status: Inactive Member Role Status Dates Dr. Magnolia Chen MD Primary Care Provider Active Dr. Roxanne Rowell MD Attending Provider Active Team Status: Inactive Member Role Status Dates Dr. Magnolia Chen MD Primary Care Provider Active Bettie Blum CNM Attending Provider Active Team Status: Inactive Member Role Status Dates Dr. Magnolia Chen MD Primary Care Provider Active Bettie Blum CNM Attending Provider, Referring Pr ovider Active Team Status: Inactive Member Role Status Dates Dr. Magnolia Chen MD Primary Care Provider Active Nighat Maloney CNM Admit Provider, Atte nding Provider, Referring Provider Active Team Status: Active Member Role/Relationship Status Dates Dr. Shivani Rowell MD Family Provider Active Nighat GUAJARDO, [employer] Primary Care Provider Activ e Team Status: Inactive Member Role/Relationship Status Dates Nighat GUAJARDO, [employer] Primary Care Provider Activ e Start: June 21, 2025 End: June 22, 2025 Bettie Blum CNM Attending Provider Active Start: June 21, 2025 End: June 22, 2025 Bettie Blum CNM Referring Provider Active Start: June 21, 2025 End: June 22, 2025 Team Status: Inactive Member Role/Relationship Status Dates Nighat Munoz BENNETT [employer] Primary Care Provider Activ e Start: July 22, 2025 End: July 22, 2025 Bettie Blum CNM Attending Provider Active Start: July 22, 2025 End: July 22, 2025 FOR RECORDS PERTAINING TO PATIENTS [...] BE BASED ON THE PRIMARY CLINICAL RECORDS. [employer] provides no warranty or guarantee of the accuracy or completeness of information in this document.
[2025-07-30 00:59] VITALS: BP 135/68; PULSE 80; PULSE 91; RESP 14; TEMP 36.4; O2SAT 93; O2SAT 95
[2025-07-30 01:23] VITALS: BMI 41.6
[2025-07-30 01:41] LABS: ROM Internal Control Test YES-OK TO RESULT pt. (Internal QC); ROM Patient Test Negative (Negative); Record Kit Lot#, ROM+ K3358
--- NOTE | 2025-07-30 01:42 | OB.TRI.HP_ITS ---
HPI - General General Date of Admission: 07/30/25 Date of Service: 07/30/25 HPI Narrative LOW PRETTY, is a 29 F who presents with possible rupture of membranes. No bleeding some contractions. Good movement. ROM negative Maternal Data Information CLAUDIO Calculator Estimated Delivery Date Method Current WG Current Estimate 08/22/25 Manual 36w 5d Final CLAUDIO: 08/22/25 Gestational age: 36+5 PFSH PFSH Medical History Lactating mother Vaginal delivery Positive GBS test History of depression Short interval between pregnancies affecting in third trimester, antepartum Obesity UTI in SROM (spontaneous rupture of membranes) 37 weeks gestation of MRSA infection Trauma Thyroid disorder Liver disease depression Wears glasses Fatty liver Heartburn Gastric reflux Former smoker PCOS (polycystic ovarian syndrome) Injury of head and neck Migraines Cholecystitis with cholelithiasis Chest pain Spontaneous vaginal delivery Elective induction of labor planned Marginal placenta previa Asthma Bipolar disorder Anxiety Depression Home Medications ?Medication ?Instructions ?Recorded ?Last Taken ?Type albuterol 90 mcg/actuation aerosol 90 mcg inhalation Q 6H PRN PRN 10/10/23 06/19/25 History inhaler asthma ferrous sulfate 325 mg (65 mg 325 mg PO DAILY 06/21/25 07/29/25 History iron) tablet (Feosol) levothyroxine 125 mcg tablet 125 mcg PO DAILY 06/21/25 07/29/25 History (Synthroid) aspirin 81 mg tablet,delayed 81 mg PO DAILY 07/22/25 0 07/29/25 History release (Adult Low Dose Aspirin) vit no.95-ferrous 1 tab PO DAILY 07/30/25 History fumarate 28 mg-folic acid 800 mcg tablet () Allergy/AdvReac Type Severity Reaction Status Date / Time aripiprazole Allergy Hives Verified 07/30/25 01:01 Family History Father Anxiety Depression Mental disorder Suicide attempt Grandfather Cancer lung Grandmother Myocardial infarction CVA (cerebral vascular accident) Surgical History History of cholecystectomy Hx of tonsillectomy History of surgery Social History household members: family housing: house current occupational status: employed current occupation: [employer] sexually active: Yes Smoking Status: Current every day smoker tobacco type: e-cigarettes Electronic Cigarette Use: not used alcohol intake: current alcohol intake frequency: holidays/special occasions only substance use type: does not use what type of physical activity do you participate in: walking frequency: 5-6 times per week seatbelt use: always do you feel safe at home: Yes History 5 Elective abortions Hx Para 2 Spontaneous abortions Hx # Term Pregnancies Ectopic pregnancies Hx # Pregnancies Multiple births # of living children 1 NST FHR Rate Baby A Baseline: 130 Variability:: Moderate Accelerations:: 15 x 15 Decelerations:: None NST Reactive:: Yes Uterine Activity:: frequent Assessment & Plan (1) 36 weeks gestation of : (2) Encounter for suspected PROM, with rupture of membranes not found: PLAN: Plan ROM negative Discharge home
== END 2025-07-30 01:45 | disposition home or self-care (01) ==
LOC: WPOUT 00:49 → WP 00:50
PROVIDERS: PCP Nurse Practitioner Family; Visit Provider Obstetrics & Gynecology
DX: O47.03 False labor before 37 completed weeks of gestation, third trimester (principal); O99.333 Smoking (tobacco) complicating pregnancy, third trimester; F17.290 Nicotine dependence, other tobacco product, uncomplicated; Z3A.36 36 weeks gestation of pregnancy
CPT/HCPCS: 59025; 59050; 84112; 99221; G0378

== ENCOUNTER 2025-08-10 12:20 | Inpatient (IN) | payer OTHER, MEDICAID, SELFPAY ==
[2025-08-10] VITALS (65 sets, daily range): BP systolic 117–188; BP diastolic 58–106; PULSE 62–96; RESP 12–18; TEMP 36.2–36.6; O2SAT 98–100; BMI 41.6; BMI 1727.0; BMI 20250909.0
[2025-08-10 11:17] LABS: Hematocrit 30.3 % (37-47); Hemoglobin 9.7 g/dL (12.0-15.0); Mean Corp Hgb Conc 32.0 g/dL (32-36); Mean Corpuscular Volume 82.3 fL (81-99); Mean Platelet Vol. 10.1 fl (6.2-12.0); Platelet Count 325 K/mm3 (150-450); RBC Distribution Width CV 16.1 % (11.6-14.6); RBC Distribution Width SD 47.6 fl (35.1-43.9); Red Blood Count 3.68 M/mm3 (4.2-5.4); White Blood Count 8.0 K/mm3 (4.4-11.0)
[2025-08-10 12:06] LABS: AST(SGOT) 23 U/L (<=31); Alanine Aminotransfer ALT/SGPT 32 U/L (<=34); Estimated Creatinine Clearance 189.46 ml/min (50-250); Uric Acid 5.3 mg/dL (2.6-6.0)
[2025-08-10 12:18] LABS: Creatinine, Urine (random) 44.00 mg/dL (28.00-217.00); Protein, Urine (Random) 64.6 mg/dL (0.0-12.0); Protein:Creat Ratio 1468 mg/g CRE (0-200)
--- NOTE | 2025-08-10 12:31 | PCM.HP.OB ---
HPI - General General Date of Admission: 08/10/25 Date of Service: 08/10/25 Chief Complaint: PRE E HPI Narrative LOW PRETTY, is a 29 F who presents headache and mild BP. Elevated BP on L&D with elevated protein. Tylenol and Reglan given for PRADO. Reviewed IOL for PRE E and possible Magnesium treatment if severe or if headache doesn't resolve Maternal Data Information CLAUDIO Calculator Estimated Delivery Date Method Current WG Current Estimate 08/22/25 Manual 38w 2d Final CLAUDIO: 08/22/25 Gestational age: 38+2 PFSH PFSH Medical History Lactating mother Vaginal delivery Positive GBS test History of depression Short interval between pregnancies affecting in third trimester, antepartum Obesity UTI in SROM (spontaneous rupture of membranes) 37 weeks gestation of MRSA infection Trauma Thyroid disorder Liver disease depression Wears glasses Fatty liver Heartburn Gastric reflux Former smoker PCOS (polycystic ovarian syndrome) Injury of head and neck Migraines Cholecystitis with cholelithiasis Chest pain Spontaneous vaginal delivery Elective induction of labor planned Marginal placenta previa Asthma Bipolar disorder Anxiety Depression Home Medications ?Medication ?Instructions ?Recorded ?Last Taken ?Type albuterol 90 mcg/actuation aerosol 90 mcg inhalation Q6H PRN PRN 10/10/23 06/19/25 History inhaler asthma ferrous sulfate 325 mg (65 mg 325 mg PO DAILY 06/21/25 07/29/25 History iron) tablet (Feosol) levothyroxine 125 mcg tablet 125 mcg PO DAILY 06/21/25 07/29/25 History (Synthroid) aspirin 81 mg tablet,delayed 81 mg PO DAILY 07/22/25 07/29/25 History release (Adult Low Dose Aspirin) vit no.95-ferrous 1 tab PO DAILY 07/30/25 07/29/25 History fumarate 28 mg-folic acid 800 mcg tablet () Allergy/AdvReac Type Severity Reaction Status Date / Time aripiprazole Allergy Hives Verified 08/10/25 10:38 Family History Father Anxiety Depression Mental disorder Suicide attempt Grandfather Cancer lung Grandmother Myocardial infarction CVA (cerebral vascular accident) Surgical History History of cholecystectomy Hx of tonsillectomy History of surgery Social History household members: family housing: house current occupational status: employed current occupation: [employer] sexually active: Yes Smoking Status: Current every day smoker tobacco type: e-cigarettes Electronic Cigarette Use: not used alcohol intake: current alcohol intake frequency: holidays/special occasions only substance use type: does not use what type of physical activity do you participate in: walking frequency: 5-6 times per week seatbelt use: always do you feel safe at home: Yes History 5 Elective abortions Hx Para 2 Spontaneous abortions Hx # Term Pregnancies Ectopic pregnancies Hx # Pregnancies Multiple births # of living children 1 NST FHR Rate Baby A Baseline: 150 Variability:: Moderate Accelerations:: 15 x 15 Decelerations:: None NST Reactive:: Yes ROS Constitutional Constitutional: Denies fatigue, fever(s) or malaise Eyes Eyes: Denies change in vision ENT HEENT: Denies dizziness Cardiovascular Cardiovascular: Denies chest pain, dyspnea or lightheadedness Respiratory/Chest Respiratory/Chest: Denies cough or dyspnea Gastrointestinal Gastrointestinal: Denies change in bowel habits Genitourinary Genitourinary: Denies burning urination or genital lesions Integumentary Integumentary: Denies rash Neurologic Neurologic: Denies confusion, dizziness, numbness or weakness Vital Signs Vital Signs Vital Signs: 08/10/25 10:48 08/10/25 10:48 08/10/25 10:48 Temperature Temperature Source Tympanic Pulse Rate Respiratory Rate 12 Blood Pressure BP Systolic BP Diastolic Pulse Ox 98 08/10/25 10:48 08/10/25 11:02 08/10/25 11:02 Temperature 97.8 F Temperature Source Pulse Rate 80 Respiratory Rate Blood Pressure 140/83 H BP Systolic 140 BP Diastolic 83 Pulse Ox 08/10/25 11:18 08/10/25 11:18 08/10/25 11:33 Temperature Temperature Source Pulse Rate 89 Respiratory Rate Blood Pressure 142/75 H 153/81 H BP Systolic 142 153 BP Diastolic 75 81 Pulse Ox 08/10/25 11:33 08/10/25 11:48 08/10/25 11:48 Temperature Temperature Source Pulse Rate 91 96 Respiratory Rate Blood Pressure 154/86 H BP Systolic 154 BP Diastolic 86 Pulse Ox 08/10/25 12:03 08/10/25 12:03 08/10/25 12:18 Temperature Temperature Source Pulse Rate 88 Respiratory Rate Blood Pressure 155/83 H 151/83 H BP Systolic 155 151 BP Diastolic 83 83 Pulse Ox 08/10/25 12:18 Temperature Temperature Source Pulse Rate 86 Respiratory Rate Blood Pressure BP Systolic BP Diastolic Pulse Ox Weight Weight: 124.284 kg Body Mass Index (BMI) 41.6 Physical Exam Const alert and no apparent distress General Appearance: cooperative HEENT normocephalic Resp normal respiratory effort Cardio regular rate GI soft to palpation GI Narrative: gravid, nontender, appropriate for gestational age Extremity no calf tenderness General Extremity: edema Skin no wounds Rashes: No rashes noted Psych activity/motor behavior normal Labs Labs Labs: Blood Type O POSITIVE Antibody Screen NEGATIVE Hct 30.3 % (37-47) L Hgb 9.7 g/dL (12.0-15.0) L Obstetrics Ultrasound Syphilis Total Ab Non-reactive VZV IgG Antibody 692 index (Immune >165) Rubella IgG Antibody Reactive (Nonreactive) Hep Bs Antigen Non-Reactive (Nonreactive) Hepatitis C Antibody Non-Reactive (Nonreactive) Chlamydia DNA (KOLE) Negative (Negative) N.gonorrhoeae DNA (KOLE) Negative (Negative) HIV 1&2 Antibody Non-Reactive (Nonreactive) Glucose 1 Hr 50 gm 122 mg/dL (70-140) Miscellaneous Test Assessment & Plan (1) Pre-eclampsia: QUALIFIERS: Trimester: third trimester Qualified Code(s): O14.93 - Unspecified pre-eclampsia, third trimester (2) 38 weeks gestation of : PLAN: Plan Induction with pitocin GBS positive - pcn Possible magnesium
[2025-08-10] MEDS: Oxytocin 15 Units/NS 250ml 15 UNITS/250 ML IV.SOLN 2 UNITS IV (12:48)
[2025-08-10] MEDS: Lactated Ringers 1,000 ML 50 ML IV (12:49)
[2025-08-10] MEDS: Penicillin G Pot 5,000,000 UNITS in 0.9% Normal Saline (100mL MB+) 100 ML 150 UNITS IV (12:49)
[2025-08-10 13:58] LABS: Syphilis Antibodies Nonreactive (Nonreactive)
[2025-08-10 15:24] LABS: Barbiturate Urine NEGATIVE (< 200 ng/mL); Benzodiazepine Urine NEGATIVE (< 200 ng/mL); PCP Urine NEGATIVE (< 25 ng/mL); THC Urine NEGATIVE (< 50 ng/mL)
--- NOTE | 2025-08-10 16:26 | PN.OBGYN_ITS ---
Subjective Subjective AROM for clear fluid. FSE and IUPC placed to better monitor HR. 3-4/50/-2. CAT 1 Objective Data Objective Data Vital Signs: Vital Signs Temp Pulse Resp BP Pulse Ox 97.9 F 64 16 143/82 H 99 08/10/25 16:22 08/10/25 16:18 08/10/25 16:22 08/10/25 16:18 08/10/25 16:22 Weight: 124.284 kg Body Mass Index (BMI) 41.6 Intake & Output: Intake and Output for Last 24 Hours 08/08/25 08/09/25 08/10/25 23:59 23:59 23:59 Intake Total 102.4 / 102.4 Balance 102.4 / 102.4 Lab / Micro Data 08/10/25 11:00 08/10/25 11:00 Labs: Laboratory Results - last 24 hr 08/10/25 11:00: WBC 8.0, RBC 3.68 L, Hgb 9.7 L, Hct 30.3 L, MCV 82.3, MCH 26.4 L , MCHC 32.0, RDW Std Deviation 47.6 H, RDW Coeff of Leonor 16.1 H, Plt Count 325, MPV 10.1, Creatinine 0.62 L, Estim Creat Clear Calc 189.46, Est GFR (MDRD) Non- Af 125, Uric Acid 5.3, AST 23, ALT 32, U Random Total Protein 64.6 H, Urine Creatinine 44.00, Protein/Creatinin Ratio 1468 H 08/10/25 13:00: Syphilis Total Ab Nonreactive, Blood Type O POSITIVE, Antibody Screen NEGATIVE 08/10/25 14:20: Urine Opiates Screen NEGATIVE, U Buprenorphine Qual NEGATIVE, Ur Oxycodone Screen NEGATIVE, Urine Methadone Screen NEGATIVE, Urine Fentanyl Screen NEGATIVE, Ur Barbiturates Screen NEGATIVE, Ur Phencyclidine Scrn NEGATIVE, Ur Amphetamines Screen NEGATIVE, U Benzodiazepines Scrn NEGATIVE, Urine Cocaine Screen NEGATIVE, U Cannabinoids Screen NEGATIVE, Ur Drug Screen Comment Assessment & Plan (1) 38 weeks gestation of : (2) Pre-eclampsia: QUALIFIERS: Trimester: third trimester Qualified Code(s): O14.93 - Unspecified pre-eclampsia, third trimester
[2025-08-10] MEDS: Penicillin G 3,000,000 Units 50 ML 100 UNITS IV ×2 (16:44→21:32)
[2025-08-10] MEDS: Lactated Ringers 1,000 ML 999 ML IV (18:16)
[2025-08-10] MEDS: fentaNYL-bupivacaine (epidural) 100 ML BAG EPIDURAL (18:49)
[2025-08-10] MEDS: Lactated Ringers 1,000 ML 200 ML IV (22:45)
--- NOTE | 2025-08-10 23:22 | OB.VAGDELI_ITS ---
Assessment & Plan (1) Pre-eclampsia: QUALIFIERS: Trimester: third trimester Qualified Code(s): O14.93 - Unspecified pre-eclampsia, third trimester (2) Spontaneous vaginal delivery: Maternal Data Information CLAUDIO Calculator Estimated Delivery Date Method Current WG Current Estimate 08/22/25 Manual 38w 2d Final CLAUDIO: 08/22/25 Gestational age: 38+2 Vaginal Delivery Maternal Presentation Maternal Presentation: Medically Indicated Induction Maternal Presentation: PRADO and elevated BP. Proteinuria 1400 Type of Induction: Pitocin and Amniotomy Medical Reason for Induction: Preeclampsia, eclampsia Vaginal Delivery Information Procedure Performed: Spontaneous Vaginal Delivery Surgeon/Practitioner: Funmilayo Bernardo Date of Procedure: 08/10/25 Pre-Procedure Diagnosis: Pre-E Post-Procedure Diagnosis: Type of anesthesia: Epidural Estimated Blood Loss: 100 cc Time of Delivery: 23:05 Findings Description of procedure: Induction of labor for pre E. Arom at 4 cm. Progressed to complete with pitocin. Once complete pushed 3 times to deliver over an intact perineum. There was a loose cord around the neck that easily reduced. The shoulders delivered easily. The was placed on the maternal abdomen. The cord was clamped and cut. The placenta delivered spontaneously. There were no lacerations. All sponge and instrument counts were correct. Presentation: Vertex and LULY Amniotic Membrane Rupture Type: Artificial Amniotic Fluid Description: Clear Placental Delivery Description: Spontaneous Placenta Disposition: [facility] Specimen collected: No Cord Vessel Description: 3 Vessels Cord Entanglement: Around neck x 1, loose Nuchal Cord Compression: Without compression Infant A Gender: Male (1 minute): 8 (5 minute): 9 Delayed Cord Clamping: Yes Recreation Attendant Supervisor event producer: No Post Vaginal Deli Medications given after delivery: IV Pitocin Episiotomy Description: None Laceration: None Complication Complications: No
[2025-08-10] MEDS: Oxytocin 15 Units/NS 250ml 15 UNITS/250 ML IV.SOLN 83 UNITS IV (23:39)
[2025-08-11] VITALS (26 sets, daily range): BP systolic 122–139; BP diastolic 59–81; PULSE 63–80; RESP 16; TEMP 36.4–36.8; O2SAT 96–99
--- NOTE | 2025-08-11 06:44 | PN.OBGYN_ITS ---
Subjective Subjective Doing well. Ambulating and voiding without difficulty. Mild lochia. Breast feeding. Slight PRADO this am but feels its from lack of sleep Objective Data Objective Data Vital Signs: Vital Signs Temp Pulse Resp BP Pulse Ox O2 Del Method 97.2 F L 80 16 122/59 H 96 Room Air 08/10/25 23:30 08/11/25 04:03 08/11/25 04:03 08/11/25 04:03 08/11/25 04:03 08/11/25 04:03 Oxygen Delivery Method Room Air Weight: 124.284 kg Body Mass Index (BMI) 41.6 Intake & Output: Intake and Output for Last 24 Hours 08/09/25 08/10/25 08/11/25 23:59 23:59 23:59 Intake Total 2565.00 / 2565.00 250 / 250 Output Total 1450 / 1450 Balance 1115.00 / 1115.00 250 / 250 Lab / Micro Data 08/10/25 11:00 08/10/25 11:00 Labs: Laboratory Results - last 24 hr 08/10/25 11:00: WBC 8.0, RBC 3.68 L, Hgb 9.7 L, Hct 30.3 L, MCV 82.3, MCH 26.4 L , MCHC 32.0, RDW Std Deviation 47.6 H, RDW Coeff of Leonor 16.1 H, Plt Count 325, MPV 10.1, Creatinine 0.62 L, Estim Creat Clear Calc 189.46, Est GFR (MDRD) Non- Af 125, Uric Acid 5.3, AST 23, ALT 32, U Random Total Protein 64.6 H, Urine Creatinine 44.00, Protein/Creatinin Ratio 1468 H 08/10/25 13:00: Syphilis Total Ab Nonreactive, Blood Type O POSITIVE, Antibody Screen NEGATIVE 08/10/25 14:20: Urine Opiates Screen NEGATIVE, U Buprenorphine Qual NEGATIVE, Ur Oxycodone Screen NEGATIVE, Urine Methadone Screen NEGATIVE, Urine Fentanyl Screen NEGATIVE, Ur Barbiturates Screen NEGATIVE, Ur Phencyclidine Scrn NEGATIVE, Ur Amphetamines Screen NEGATIVE, U Benzodiazepines Scrn NEGATIVE, Urine Cocaine Screen NEGATIVE, U Cannabinoids Screen NEGATIVE, Ur Drug Screen Comment ROS Cardiovascular Cardiovascular: Denies chest pain or dyspnea Gastrointestinal Gastrointestinal: Denies nausea or vomiting Genitourinary Genitourinary: Denies dysuria Physical Exam Const alert, oriented x3 and no apparent distress General Appearance: cooperative and comfortable Eyes PERRL and EOMs intact bilaterally Resp normal respiratory effort GI soft to palpation and non-tender Narrative: Fundus firm, below umbilicus. Uterus Palpation: uterus fundus firm ( below umbilicus) Extremity normal to inspection and full ROM Neuro oriented x3 and CN's II-XII intact bilaterally Psych mental status grossly normal Assessment & Plan (1) Spontaneous vaginal delivery: (2) Pre-eclampsia: QUALIFIERS: Trimester: third trimester Qualified Code(s): O14.93 - Unspecified pre-eclampsia, third trimester PLAN: Plan Monitor BP
[2025-08-12 03:06] VITALS: BP 117/55; PULSE 78; RESP 16; TEMP 36.6; O2SAT 98
[2025-08-12] MEDS: MEASLES,MUMPS,RUBELLA VACC/PF 0.5 ML SC (06:11)
--- NOTE | 2025-08-12 07:16 | PCM.DC.SUM ---
Providers Date of Admission: 08/10/25 Primary Care Physician: BENNETT Lind, WELFARE ELIGIBILITY INTERVIEWER-C Reason For Visit: VAGINAL DELIVERY Diagnosis Discharge Diagnosis (1) Spontaneous vaginal delivery: Status: Acute Code(s): O80 - Encounter for full-term uncomplicated delivery (2) Pre-eclampsia: Status: Acute Code(s): O14.90 - Unspecified pre-eclampsia, unspecified trimester Qualifiers: Trimester: third trimester Qualified Code(s): O14.93 - Unspecified pre-eclampsia, third trimester Plan PPD 2 BP normal - no severe ranges No medications Desires discharge home with follow up in office next week for BP check Medications at Discharge Home Medications albuterol 90 mcg/actuation aerosol inhaler 90 mcg inhalation Q6H PRN PRN asthma 10/10/23 ferrous sulfate 325 mg (65 mg iron) tablet (Feosol) 325 mg PO DAILY anemia 06/21/25 levothyroxine 125 mcg tablet (Synthroid) 150 mcg PO DAILY hypothyroid 06/21/25 vit no.95-ferrous fumarate 28 mg-folic acid 800 mcg tablet () 1 tab PO DAILY 07/30/25 acetaminophen 500 mg tablet 1,000 mg (2 x 500 mg) PO Q6H PRN PRN Pain 1-10 Or Fever #0 tabs 08/12/25 ibuprofen 600 mg tablet 600 mg PO Q6H PRN PRN Pain Score 1-10 #0 tabs 08/12/25 Hospital Course Operations None Procedures None Summary of Care Provided Minutes Spent on Discharge: 15 Hospital Course: Patient had vaginal delivery. Hospital course was uneventful. Physical Exam Narrative Patient seen at bedside. Denies pain. Ambulating and voiding without difficulty. Lochia decreased. Desires discharge home today. Const alert and oriented x3 General Appearance: Negative for in distress HEENT normocephalic Eyes General Eye: normal appearance of both eyes Neck General: normal visual inspection Chest Chest: symmetrical chest wall rise Resp normal respiratory effort and normal air movement Effort and Inspection: symmetric chest movement; Negative for tachypneic Auscultation: clear to auscultation bilaterally Cardio regular rate and regular rhythm Peripheral Pulses: pulses 2+ throughout GI normal to inspection, nondistended, normoactive bowel sounds Narrative: Ice to perineum OB / External & Speculum: vaginal bleeding and other Lochia decreasing Uterus Palpation: uterus fundus firm (Below U) Extremity normal to inspection, full ROM and normal capillary refill Skin no rashes or lesions noted Neuro oriented x3, CN's II-XII intact bilaterally and gait normal Psych mental status grossly normal, thought process normal and activity/motor behavior normal Weight / BMI Weight Weight: 274 lb Body Mass Index (BMI) 41.6 ABG / Lab / Microbiology Data 08/10/25 11:00 08/10/25 11:00 D/C Instructions Discharge Activity: Return to Normal Activity, No Restrictions, May Drive, May Shower and May Take a Tub Bath (Warm water only. No bath salts, soaps, bubbles) May resume sexual activity in: 6-8 weeks Weight Bearing Status: Weight bearing as tolerated Call your doctor if you observe: Fever of 101 or Higher, Inability to urinate, Using more than 1 pad per hour, Shortness of breath, Dizziness, Chest pain, Calf discomfort and Uncontrolled pain DC O2, CPAP, BIPAP Needs Home O2 Discharge instructions: No Additional Instructions: Call if any BP >160/110 Please Follow Up With: [facility] Christine SALMERON When: 1week for blood pressure check Meaningful Use Info Meaningful Use Meaningful Use Diagnoses (Choose all that apply): None applicable Discharge Plan Admission Admit Date/Time: 08/10/25 12:20 Primary Reason for Your Visit: Labor and delivery Attending Provider: Funmilayo Bernardo Primary Care Provider: Nighat Munoz Discharge Orders/Prescriptions Prescriptions: New acetaminophen 500 mg Tablet 1,000 mg PO Q6H PRN PRN (Reason: Pain 1-10 Or Fever) Qty: 0 0RF ibuprofen 600 mg Tablet 600 mg PO Q6H PRN PRN (Reason: Pain Score 1-10) Qty: 0 0RF Continued albuterol 90 mcg/actuation aerosol 90 mcg inhalation Q6H PRN PRN (Reason: asthma) ferrous sulfate [Feosol] 325 mg (65 mg iron) tablet 325 mg PO DAILY levothyroxine [Synthroid] 125 mcg tablet 150 mcg PO DAILY PNV no.95-ferrous fumarate-FA [] 28 mg iron- 800 mcg tablet 1 tab PO DAILY Discontinued aspirin [Adult Low Dose Aspirin] 81 mg tablet,delayed release (DR/EC) 81 mg PO DAILY Referrals / Follow Up: Nighat Munoz, WELFARE ELIGIBILITY INTERVIEWER-C [Primary Care Provider] - Disposition Disposition (needs filled in before D/C Order can be placed): Home, Self Care
[2025-08-12 09:26] VITALS: BP 116/72; PULSE 84; RESP 16; TEMP 36.4; O2SAT 96
--- NOTE | 2025-08-17 13:52 | NURSING ---
Here for visit on Saturday08/15/25, follow up phone call questions asked. Denies any pain. States that her pain is minimal. Denies any headaches, visual disturbances, or baby blues. See note for feedings. Denies questions or concerns at this time.
== END 2025-08-12 12:40 | disposition home or self-care (01) | DRG 806 ==
LOC: WPOUT 12:24 → WP 12:24
PROVIDERS: Admitting Provider Obstetrics & Gynecology; PCP Nurse Practitioner Family; Referring Provider Obstetrics & Gynecology; Visit Provider Obstetrics & Gynecology
DX: O14.94 Unspecified pre-eclampsia, complicating childbirth (principal); Z37.0 Single live birth; O98.82 Other maternal infectious and parasitic diseases complicating childbirth; J45.909 Unspecified asthma, uncomplicated; O99.214 Obesity complicating childbirth; E28.2 Polycystic ovarian syndrome; E07.9 Disorder of thyroid, unspecified; O99.52 Diseases of the respiratory system complicating childbirth; B95.1 Streptococcus, group B, as the cause of diseases classified elsewhere; O99.284 Endocrine, nutritional and metabolic diseases complicating childbirth; O69.81X0 Labor and delivery complicated by cord around neck, without compression, not applicable or unspecified; Z79.890 Hormone replacement therapy; Z79.82 Long term (current) use of aspirin; Z87.891 Personal history of nicotine dependence; Z3A.38 38 weeks gestation of pregnancy
CPT/HCPCS: 59025; 59050; 80307; 82565; 82570; 84156; 84450; 84460; 84550; 85027; 86780; 86850; 86900; 86901; 99221; G0378; J2405

== ENCOUNTER 2025-10-04 04:31 | Emergency (ER) | payer OTHER, MEDICAID, SELFPAY ==
[2025-10-04 04:32] VITALS: BP 144/80; PULSE 81; RESP 18; TEMP 36.4; O2SAT 100; BMI 41.8
--- NOTE | 2025-10-04 04:48 | CT_ITS ---
PROCEDURE: CT/Abdomen/Pelvis without Cont
[2025-10-04] MEDS: 0.9% Normal Saline (1000mL) 1,000 ML 999 ML IV (04:58)
[2025-10-04 04:59] LABS: Hematocrit 36.8 % (37-47); Hemoglobin 11.5 g/dL (12.0-15.0); Immature Granulocytes Count 0.040 X10^3/uL (0.0-0.0); Mean Corp Hgb Conc 31.3 g/dL (32-36); Mean Corpuscular Volume 79.8 fL (81-99); Mean Platelet Vol. 9.9 fl (6.2-12.0); NRBC Flagged by Analyzer 0 % (0-5); Platelet Count 446 K/mm3 (150-450); RBC Distribution Width CV 15.4 % (11.6-14.6); RBC Distribution Width SD 44.2 fl (35.1-43.9); Red Blood Count 4.61 M/mm3 (4.2-5.4); White Blood Count 9.1 K/mm3 (4.4-11.0)
[2025-10-04 05:29] LABS: Anion Gap 11 (5-15); BUN 12 mg/dL (4-19); BUN/Creat Ratio 13.7 RATIO (10-20); Calcium,Total 9.3 mg/dL (7.6-11.0); Carbon Dioxide 22.0 mmol/L (21.0-32.0); Chloride 107 mmol/L (98-108); Estimated Creatinine Clearance 140.04 ml/min (50-250); Glucose 111 mg/dL (70-99); Potassium 3.7 mmol/L (3.3-5.1)
[2025-10-04 06:23] LABS: Mucous, Urine 0 SEEN /hpf (<or=2+)
[2025-10-04 06:32] VITALS: BP 133/74; PULSE 74; RESP 16; O2SAT 98
[2025-10-04] MEDS: Ketorolac 30 MG/ML Syringe IV (06:38)
[2025-10-04 06:42] LABS: Color, Urine Yellow (Yellow); Glucose, Dipstick Normal (Normal); Ketone-Dipstick Negative (Negative); Leukocyte Esterase-Dipstick 500 /ul (Negative); Nitrite-Dipstick Negative (Negative); Occult Blood-Urine 250 /ul (Negative); Protein-Dipstick 30 mg/dl (Negative); Specific Gravity, Urine 1.020 (1.002-1.030); Urine Bilirubin Dipstick Negative (Negative)
[2025-10-04 06:55] LABS: Squamous Epithelial Cells - UA 5-10 SEEN /hpf (5-10)
[2025-10-04 06:56] LABS: Red Blood Cells-Urine 5-10 SEEN /hpf (0-5); Transitional Epithelial - Ur 5-10 SEEN /hpf (0-5)
[2025-10-04 07:00] VITALS: BP 133/74; PULSE 74; RESP 16; TEMP 36.4; O2SAT 98
--- NOTE | 2025-10-04 07:07 | EX.ED.DYSGE1 ---
HPI History of Present Illness Chief Complaint: Abd Pain Informant: patient and spouse/S.O. Narrative Narrative: Patient is a 29-year-old female with past medical history of anxiety depression and bipolar disorder who is 7 weeks . She states she has been doing well and went to bed normally this evening. However around 3 AM she awoke with sharp right sided flank pain wrapping towards her abdomen. She states when she urinated she thought it looked slightly bloody. She denies any recent trauma or excessive activity. She states there has been no fevers or chills. She reports that there is no comfortable position either. She states she tried [id number] medications without any symptom improvement and secondary to this comes in for evaluation. [facility] Medical History (Updated 10/04/25 @ 07:[address] Edouard Siegel DO) Pre-eclampsia Asthma Depression Anxiety Pre-eclampsia Lactating mother Vaginal delivery Positive GBS test History of depression Short interval between pregnancies affecting in third trimester, antepartum Obesity UTI in SROM (spontaneous rupture of membranes) 37 weeks gestation of MRSA infection Trauma Thyroid disorder Liver disease depression Wears glasses Fatty liver Heartburn Gastric reflux Former smoker PCOS (polycystic ovarian syndrome) Injury of head and neck Migraines Cholecystitis with cholelithiasis Chest pain Spontaneous vaginal delivery Elective induction of labor planned Marginal placenta previa Asthma Bipolar disorder Anxiety Depression Home Medications ?Medication ?Instructions ?Recorded ?Last Taken ?Type cephalexin 500 mg capsule 500 mg PO TID 7 days #21 caps 10/04/25 Unknown Rx ondansetron 4 mg disintegrating 4 mg PO TID PRN nausea and 10/04/25 Unknown Rx tablet vomiting #21 tabs oxycodone-acetaminophen 5 mg-325 1 tab PO Q6H PRN pain 5 days #20 10/04/25 Unknown Rx mg tablet (Percocet) tabs tamsulosin 0.4 mg capsule (Flomax) 0.4 mg PO DAILY 14 days #14 caps 10/04/25 Unknown Rx Allergy/AdvReac Type Severity Reaction Status Date / Time aripiprazole Allergy Hives Verified 10/04/25 04:32 Family History Father Anxiety Depression Mental disorder Suicide attempt Grandfather Cancer lung Grandmother Myocardial infarction CVA (cerebral vascular accident) Surgical History History of surgery History of cholecystectomy Hx of tonsillectomy History of surgery Social History household members: family housing: house current occupational status: employed current occupation: [employer] sexually active: Yes Smoking Status: Current every day smoker tobacco type: e-cigarettes Electronic Cigarette Use: not used alcohol intake: current alcohol intake frequency: holidays/special occasions only substance use type: does not use what type of physical activity do you participate in: walking frequency: 5-6 times per week seatbelt use: always do you feel safe at home: Yes ROS ROS ED Constitutional Constitutional ED: Denies chills or fever(s) Eyes Eyes: Denies change in vision ENT ENT ED: Denies sore throat Cardiovascular Cardiovascular: Denies chest pain Respiratory/Chest Respiratory/Chest: Denies cough or dyspnea Gastrointestinal Gastrointestinal: Reports abdominal pain and nausea; Denies diarrhea or vomiting Genitourinary Genitourinary ED: Reports hematuria; Denies dysuria Musculoskeletal Musculoskeletal: Reports back pain and other Details: Positive right CVA pain Integumentary Denies rash Neurologic Neurologic: Denies headache(s) Psychiatric Psychiatric: Reports anxiety Hematologic/Lymphatic Hematologic/Lymphatic: Denies easy bleeding or easy bruising EXAM Physical Exam Const Vital Signs: 10/04/25 04:32 10/04/25 06:32 10/04/25 07:00 Temperature 97.5 F L 97.5 F L Temperature Source Oral Pulse Rate 81 74 74 Respiratory Rate 18 16 16 Blood Pressure 144/80 H 133/74 H 133/74 H Blood Pressure Mean 101 93 93 Pulse Ox 100 98 98 Oxygen Delivery Method Room Air Room Air Positive well nourished, well developed and obese General Appearance ED: well developed; Negative for pallor Nutritional Appearance: obese HEENT HEENT Narrative: Normocephalic atraumatic Eyes PERRL and EOMs intact bilaterally General Eye ED: Negative for scleral icterus Neck supple Resp normal respiratory effort and clear to auscultation bilaterally Cardio regular rate and regular rhythm Rate: other Other Details: Heart is regular rate and rhythm without murmurs rubs or gallop Radial and carotid pulses are equal and symmetric GI non-distended and no masses GI Narrative: Abdomen is soft and nondistended with normal active bowel sounds. Patient has diffuse pain on palpation along the right lateral abdomen. No voluntary guarding or rigidity or pulsatile mass Auscultation: normoactive bowel sounds Palpation: soft Back/Spine Back/Spine Narrative: Positive right CVA pain noted Extremity normal to inspection Neuro oriented x3, CN's II-XII intact bilaterally and no sensory deficits noted Sensorium / Orientation: alert Motor Exam: strength 5/5 throughout Psych mental status grossly normal Skin no rashes or lesions noted and no wounds General Skin Exam: Negative for jaundice or pallor MDM MDM MDM Narrative Medical decision making narrative: Patient arrived to the ER mildly hypertensive but otherwise with stable vitals. With patient reporting sudden onset of right sided flank/abdominal pain differential diagnosis is for UTI versus pyelonephritis versus kidney stone versus colitis biliary colic or pancreatitis. As the most likely diagnosis is kidney stone or UTI I did like to perform a noncontrast CT scan and basic laboratory values. Patient's urine does show changes consistent with infection but white count and neutrophil count are normal and she is afebrile going against systemic infection/urosepsis. The radiologist reports a calculus in the distal ureter causing obstruction and hydronephrosis but then goes on to say that there is no acute kidney stone. My interpretation of the CT scan is that the patient does have a obstructing stone and therefore will require follow-up with urology to discuss need for lithotripsy or stent placement. However at this time she is not septic or having findings of acute kidney injury and her pain has been controlled with provided medication. Therefore we can place her on Flomax pain medication and antibiotics and she is otherwise safe for discharge. History & Record Review Discussion w/independent historian: Patient Lab Data Attestation: I reviewed the patient's lab results. Labs: Laboratory Results - last 24 hr 10/04/25 10/04/25 04:41 06:13 WBC 9.1 RBC 4.61 Hgb 11.5 L Hct 36.8 L MCV 79.8 L MCH 24.9 L MCHC 31.3 L RDW Std Deviation 44.2 H RDW Coeff of Leonor 15.4 H Plt Count 446 MPV 9.9 Immature Gran % (Auto) 0.400 Neut % (Auto) 64.0 Lymph % (Auto) 26.2 [place] % (Auto) 6.8 Eos % (Auto) 1.9 Baso % (Auto) 0.7 Absolute Neuts (auto) 5.8 Absolute Lymphs (auto) 2.38 Nucleated RBC % 0 Sodium 140 Potassium 3.7 Chloride 107 Carbon Dioxide 22.0 Anion Gap 11 BUN 12 Creatinine 0.84 Estim Creat Clear Calc 140.04 Est GFR (MDRD) Non-Af 98 BUN/Creatinine Ratio 13.7 Glucose 111 H Calcium 9.3 Urine Color Yellow Urine Clarity Sl. Cloudy Urine pH 6.0 Ur Specific [place] 1.020 Urine Protein 30 H Urine Glucose (UA) Normal Urine Ketones Negative Urine Occult Blood 250 H Urine Nitrite Negative Urine Bilirubin Negative Urine Urobilinogen Normal Ur Leukocyte Esterase 500 H Urine RBC 5-10 SEEN Urine WBC 50-100 SEEN Ur Squamous Epith Cells 5-10 SEEN Ur Transition Epith Cell 5-10 SEEN Ur Renal Epithelial Cell 0-5 SEEN Urine Bacteria 2+ Urine Mucus 0 SEEN Radiography Diagnostic Testing: Clinical Impression(s) from Imaging Studies Abdomen/Pelvis CT 10/04/25 04:48 IMPRESSION: backpressure changes. Right renal punctate non obstructing calculi. Reading Location: [place] [id number] Discharge Plan Triage Chief Complaint: Abd Pain ED Provider: Edouard Siegel Dx/Rx/DC Orders Clinical Impression: UTI (urinary tract infection), Hydronephrosis Instructions: UTIs, Understanding Hydronephrosis Prescriptions: New cephalexin 500 mg capsule 500 mg PO TID 7 Days Qty: 21 0RF tamsulosin [Flomax] 0.4 mg capsule 0.4 mg PO DAILY 14 Days Qty: 14 0RF ondansetron 4 mg tablet,disintegrating 4 mg PO TID PRN (Reason: nausea and vomiting) Qty: 21 0RF oxycodone-acetaminophen [Percocet] 5-325 mg tablet 1 tab PO Q6H PRN (Reason: pain) 5 Days Qty: 20 0RF Primary Care Provider: Nighat Munoz Referrals: Charlene Morrissey MD [Med Staff - Active Staff, Urology] Nighat Munoz, SENIOR COPYWRITER-C [Primary Care Provider, Family Practice] Activity Restrictions/Additional Instructions: Please follow-up with urology to discuss any further treatment options or testing regarding your symptoms. Take the prescribed medications as directed to help resolve your infection and control pain. If you develop a fever or your pain is not controlled with the prescribed medication then please return to the ER for repeat evaluation. As you will be on pain medication and this can be transmitted through the breastmilk I would recommend breast-feeding sparingly and using supplemental bottlefeeding during the time you are on the medications. Print Language: Setswana Disposition Disposition: Home, Self Care Discharge Date/Time: 10/04/25 07:32
== END 2025-10-04 07:32 | disposition home or self-care (01) ==
PROVIDERS: Emergency Provider Emergency Medicine; PCP Nurse Practitioner Family; Visit Provider Emergency Medicine
DX: N13.2 Hydronephrosis with renal and ureteral calculous obstruction (principal); R10.A1 Flank pain, right side; F17.290 Nicotine dependence, other tobacco product, uncomplicated; Z90.49 Acquired absence of other specified parts of digestive tract
CPT/HCPCS: 74176; 80048; 81001; 85025; 87077; 87086; 87088; 87186; 96361; 96374; 96375; 99282; A4216; J2405